=== PATIENT | male | born 1950 | race Asian ===

== ENCOUNTER 2018-07-10 17:18 | Inpatient (IN) | payer OTHER ==
[~2018-07-10] VITALS: Ht 157.5 cm; Wt 62.0 kg
[2018-07-11] VITALS (10 sets, daily range): BP systolic 124–148; BP diastolic 62–88; PULSE 63–101; RESP 17–19; Ht 157.5 cm; Wt 62.0 kg
[2018-07-11] MEDS ORDERED: NACL 0.9% 3 ML SYG IV SCH (05:30)
[2018-07-11] MEDS ORDERED: morphine 2 MG INJ IV PRN (05:30)
[2018-07-11] MEDS ORDERED: HYDROCODONE/APAP (5/325) TAB PO PRN (05:30)
[2018-07-11] MEDS: HEPARIN 5,000 UNIT/1 ML VIAL SC SCH ×3 (07:02→22:36)
--- NOTE | 2018-07-11 12:28 | HP ---
Date/Time of Note Date/Time of Note DATE: 07/11/18 TIME: 12:21 Assessment/Plan VTE Prophylaxis Risk score (from Nsg)>0 risk: 2 SCD applied (from Ns): Yes Pharmacological prophylaxis: NA/contraindicated Pharm contraindication: low risk/ambulating Lines/Catheters IV Catheter Type (from Nrsg): Saline Lock Urinary Cath still in place: No Assessment/Plan Hospital Course 1. Multivessel coronary disease with unstable angina Heart cath [facility] showed multivessel disease CT surgery Dr. Olivas planning on CABG next week, likely Friday Continue cardiac meds with aspirin, statin, metoprolol, lisinopril, Plavix has been held 2. Uncontrolled diabetes A1c at outside hospital was 12.3 with glucosuria and ketonuria Continue scheduled insulin of 16 units and NovoLog 7 with meals and moderate sliding scale 3. Hypertension Continue previous lisinopril 10 mg daily and metoprolol 25 mg twice daily Prophylaxis: Ambulation, SCDs HPI/ROS Admit Date/Time Admit Date/Time Jul 11, 2018 at 04:15 Hx of Present Illness Patient is a 68-year-old male with a history of hypertension, uncontrolled insulin-dependent diabetes, former smoker ([id number], quit 30 years ago), patient presented to [facility] on 211 with typical chest pain. Patient had a negative EKG and troponin was found to have multivessel disease on left heart cath. Heart cath showed moderate diffuse disease in the LM, LAD, first diagonal, left circumflex, third OM, LAD with 95% discrete mid vessel stenosis. Patient was seen by CT surgery who recommended CABG, patient was transferred to [facility] due to capitation. Patient will be evaluated by CT surgery and will have CABG next week. Patient currently denies any chest pain or shortness of breath. ROS Constitutional: no complaints, improved Eyes: no complaints ENT: no complaints Respiratory: no complaints Cardiovascular: no complaints Gastrointestinal: no complaints Genitourinary: no complaints Musculoskeletal: no complaints Skin: no complaints Neurologic: no complaints Endocrine: no complaints Lymphatic: no complaints Psychological: no complaints, nl mood/affect Immunologic: no complaints PMH/Family/Social Past Medical History Uncontrolled insulin-dependent diabetes, hypertension, coronary artery disease Medications Current Medications IV Flush (NS 3 ml) 3 ml PER PROTOCOL IV ; Start 07/11/18 at 05:30 Ondansetron HCl (Zofran Inj) 4 mg Q6H PRN IV NAUSEA/VOMITING; Start 07/11/18 at 05:30 Nitroglycerin (Nitroglycerin (Sl Tab) 0.4 Mg) 1 tab Q5M PRN SL .CHEST PAIN; Start 07/11/18 at 05:30 Acetaminophen (Tylenol Tab) 650 mg Q6H PRN PO .PAIN 1-3 OR TEMP; Start 07/11/18 at 05:30 Acetaminophen/ Hydrocodone Bitart ([place] (5/325)) 1 tab Q6H PRN PO .PAIN 4-6; Start 07/11/18 at 05:30 Morphine Sulfate (morphine) 2 mg Q4H PRN IV .PAIN 7-10; Start 07/11/18 at 05:30 Heparin Sodium (Porcine) (Heparin (5000 Units/1ml)) 5,000 unit Q8 SC Last administered on 07/11/18at 07:02; Admin Dose 5,000 UNIT; Start 07/11/18 at 06:00 Coded Allergies: No Known Allergy (Unverified , 07/11/18) Past Surgical History Past Surgical Hx: no surgical history Family History Significant Family History: no pertinent family hx Social History Alcohol Use: rarely Smoking Status: Former smoker Drug Use: none Exam/Review of Systems Vital Signs Vitals Vital Signs Date Temp Pulse Resp B/P (MAP) Pulse Ox O2 O2 Flow FiO2 Time Delivery Rate 07/11/18 97.0 101 17 138/76 96 11:41 (96) 07/11/18 Room Air 04:44 Exam Constitutional: alert, oriented Respiratory: clear to auscultation Cardiovascular: regular rate and rhythm Gastrointestinal: soft; No distended Musculoskeletal: nl extremities to inspection SUZETTE SIMMONS Jul 11, 2018 12:28
[2018-07-11] MEDS ORDERED: GLUCOSE GEL 15 GRAM TUBE PO PRN ×2 (13:00)
[2018-07-11] MEDS ORDERED: GLUCOSE GEL 15 GRAM TUBE BUCCAL PRN (13:00)
[2018-07-11] MEDS ORDERED: GLUCAGON 1 MG INJ IM PRN (13:00)
[2018-07-11] MEDS ORDERED: DEXTROSE 50% 50 ML SYRINGE IV PRN ×2 (13:00)
--- NOTE | 2018-07-11 13:05 | CONS ---
Assessment/Plan Assessment/Plan Assessment/Plan (Daily) Coronary artery disease We will proceed with coronary artery bypass grafting risks benefits complications alternative therapies explained to the patient consent obtained we will obtain cardiac catheterization prior to surgery Consultation Date/Type/Reason Admit Date/Time Jul 11, 2018 at 04:15 Date of Consultation: Jul 11, 2018 Type of Consult Cardiothoracic surgery evaluation for coronary artery bypass grafting Reason for Consultation Evaluation for coronary artery bypass graft Date/Time of Note DATE: 07/11/18 TIME: 13:03 Hx of Present Illness 68 year-old male with a history of coronary artery disease ENT: no complaints Respiratory: no complaints Cardiovascular: no complaints Gastrointestinal: no complaints Genitourinary: no complaints Musculoskeletal: no complaints Skin: no complaints Neurologic: no complaints Past Medical History Medications Current Medications IV Flush (NS 3 ml) 3 ml PER PROTOCOL IV ; Start 07/11/18 at 05:30 Ondansetron HCl (Zofran Inj) 4 mg Q6H PRN IV NAUSEA/VOMITING; Start 07/11/18 at 05:30 Nitroglycerin (Nitroglycerin (Sl Tab) 0.4 Mg) 1 tab Q5M PRN SL .CHEST PAIN; Start 07/11/18 at 05:30 Acetaminophen (Tylenol Tab) 650 mg Q6H PRN PO .PAIN 1-3 OR TEMP; Start 07/11/18 at 05:30 Acetaminophen/ Hydrocodone Bitart ([place] (5/325)) 1 tab Q6H PRN PO .PAIN 4-6; Start 07/11/18 at 05:30 Morphine Sulfate (morphine) 2 mg Q4H PRN IV .PAIN 7-10; Start 07/11/18 at 05:30 Heparin Sodium (Porcine) (Heparin (5000 Units/1ml)) 5,000 unit Q8 SC Last administered on 07/11/18at 07:02; Admin Dose 5,000 UNIT; Start 07/11/18 at 06:00 Aspirin (Halfprin) 81 mg DAILY PO ; Start 07/11/18 at 13:00 Atorvastatin Calcium (Lipitor) 40 mg HS PO ; Start 07/11/18 at 21:00 Metoprolol Tartrate (Lopressor) 25 mg BID PO ; Start 07/11/18 at 13:00 Lisinopril (Zestril) 20 mg DAILY PO ; Start 07/11/18 at 13:00 Diagnostic Test (Pha) (Accu-Chek) 1 ea 02 XX ; Start 07/12/18 at 02:00 Insulin Glargine (Lantus) 16 units DAILY@0800 SC ; Start 07/11/18 at 13:30 Insulin Aspart (Novolog Insulin Pen) 7 unit WITH MEALS SC ; Start 07/11/18 at 18:00 Insulin Aspart (Novolog Insulin Pen) NOVOLOG *MODERATE* ALGORITHM WITH MEALS BEDTIME SC ; Start 07/11/18 at 18:00 Miscellaneous Information 1 ea NOTE XX ; Start 07/11/18 at 13:00 Glucose (Glutose) 15 gm Q15M PRN PO DECREASED GLUCOSE; Start 07/11/18 at 13:00 Glucose (Glutose) 22.5 gm Q15M PRN PO DECREASED GLUCOSE; Start 07/11/18 at 13:00 Dextrose (D50w Syringe) 25 ml Q15M PRN IV DECREASED GLUCOSE; Start 07/11/18 at 13:00 Dextrose (D50w Syringe) 50 ml Q15M PRN IV DECREASED GLUCOSE; Start 07/11/18 at 13:00 Glucagon (Glucagen) 1 mg Q15M PRN IM DECREASED GLUCOSE; Start 07/11/18 at 13:00 Glucose (Glutose) 15 gm Q15M PRN BUCCAL DECREASED GLUCOSE; Start 07/11/18 at 13:00 Allergies: Coded Allergies: No Known Allergy (Unverified , 07/11/18) Past Surgical History Past Surgical Hx: no surgical history Social History Alcohol Use: rarely Smoking Status: Former smoker Drug Use: none Exam/Review of Systems Exam Vitals Vital Signs Date Temp Pulse Resp B/P (MAP) Pulse Ox O2 O2 Flow FiO2 Time Delivery Rate 07/11/18 97.0 101 17 138/76 96 11:41 (96) 07/11/18 Room Air 04:44 Head: normocephalic, atraumatic Eyes: nl conjunctiva, EOMI, nl lids, nl sclera, PERRL ENMT: nl external ears & nose, nl lips & teeth, nl nasal mucosa & septum Neck: supple, non-tender Respiratory: clear to auscultation, normal air movement Cardiovascular: regular rate and rhythm, nl pulses Gastrointestinal: soft, nl liver, spleen, non-tender Musculoskeletal: nl extremities to inspection, nl gait and stance Medications Medication Current Medications IV Flush (NS 3 ml) 3 ml PER PROTOCOL IV ; Start 07/11/18 at 05:30 Ondansetron HCl (Zofran Inj) 4 mg Q6H PRN IV NAUSEA/VOMITING; Start 07/11/18 at 05:30 Nitroglycerin (Nitroglycerin (Sl Tab) 0.4 Mg) 1 tab Q5M PRN SL .CHEST PAIN; Start 07/11/18 at 05:30 Acetaminophen (Tylenol Tab) 650 mg Q6H PRN PO .PAIN 1-3 OR TEMP; Start 07/11/18 at 05:30 Acetaminophen/ Hydrocodone Bitart ([place] (5/325)) 1 tab Q6H PRN PO .PAIN 4-6; Start 07/11/18 at 05:30 Morphine Sulfate (morphine) 2 mg Q4H PRN IV .PAIN 7-10; Start 07/11/18 at 05:30 Heparin Sodium (Porcine) (Heparin (5000 Units/1ml)) 5,000 unit Q8 SC Last ad ministered on 07/11/18at 07:02; Admin Dose 5,000 UNIT; Start 07/11/18 at 06:00 Aspirin (Halfprin) 81 mg DAILY PO ; Start 07/11/18 at 13:00 Atorvastatin Calcium (Lipitor) 40 mg HS PO ; Start 07/11/18 at 21:00 Metoprolol Tartrate (Lopressor) 25 mg BID PO ; Start 07/11/18 at 13:00 Lisinopril (Zestril) 20 mg DAILY PO ; Start 07/11/18 at 13:00 Diagnostic Test (Pha) (Accu-Chek) 1 ea 02 XX ; Start 07/12/18 at 02:00 Insulin Glargine (Lantus) 16 units DAILY@0800 SC ; Start 07/11/18 at 13:30 Insulin Aspart (Novolog Insulin Pen) 7 unit WITH MEALS SC ; Start 07/11/18 at 18:00 Insulin Aspart (Novolog Insulin Pen) NOVOLOG *MODERATE* ALGORITHM WITH MEALS BEDTIME SC ; Start 07/11/18 at 18:00 Miscellaneous Information 1 ea NOTE XX ; Start 07/11/18 at 13:00 Glucose (Glutose) 15 gm Q15M PRN PO DECREASED GLUCOSE; Start 07/11/18 at 13:00 Glucose (Glutose) 22.5 gm Q15M PRN PO DECREASED GLUCOSE; Start 07/11/18 at 13:00 Dextrose (D50w Syringe) 25 ml Q15M PRN IV DECREASED GLUCOSE; Start 07/11/18 at 13:00 Dextrose (D50w Syringe) 50 ml Q15M PRN IV DECREASED GLUCOSE; Start 07/11/18 at 13:00 Glucagon (Glucagen) 1 mg Q15M PRN IM DECREASED GLUCOSE; Start 07/11/18 at 13:00 Glucose (Glutose) 15 gm Q15M PRN BUCCAL DECREASED GLUCOSE; Start 07/11/18 at 13:00 VANIA LAMB MD Jul 11, 2018 13:05
[2018-07-11] MEDS: METOPROLOL 25 MG TAB PO SCH ×2 (13:20→21:02)
[2018-07-11] MEDS: LISINOPRIL 20 MG TAB PO SCH (13:20)
[2018-07-11] MEDS: ASPIRIN (EC) 81 MG TAB PO SCH (13:20)
[2018-07-11] MEDS: INSULIN GLARGINE [LANTus] (100 UNITS/ML) SYG SC SCH (15:11)
[2018-07-11] MEDS: INSULIN ASPART [NOVOLOG] 3 ML PEN SC SCH ×4 (15:23→21:10)
[2018-07-11] MEDS: PANTOPRAZOLE (EC) 40 MG TAB PO SCH (15:24)
[2018-07-11] MEDS: ATORVASTATIN 40 MG TAB PO SCH (21:02)
[2018-07-12] VITALS (12 sets, daily range): BP systolic 115–138; BP diastolic 63–71; PULSE 67–92; RESP 17–18
[2018-07-12] MEDS: ACCU-CHEK XX SCH (02:31)
[2018-07-12] MEDS: PANTOPRAZOLE (EC) 40 MG TAB PO SCH (05:51)
[2018-07-12] MEDS: HEPARIN 5,000 UNIT/1 ML VIAL SC SCH ×3 (05:57→22:11)
[2018-07-12] MEDS: INSULIN ASPART [NOVOLOG] 3 ML PEN SC SCH ×7 (07:41→22:12)
[2018-07-12] MEDS: INSULIN GLARGINE [LANTus] (100 UNITS/ML) SYG SC SCH (08:11)
[2018-07-12] MEDS: METOPROLOL 25 MG TAB PO SCH ×2 (12:26→20:21)
[2018-07-12] MEDS: ASPIRIN (EC) 81 MG TAB PO SCH (12:27)
[2018-07-12] MEDS: LISINOPRIL 20 MG TAB PO SCH (12:27)
--- NOTE | 2018-07-12 12:47 | PN ---
Date/Time of Note Date/Time of Note DATE: 07/12/18 TIME: 12:46 Assessment/Plan Lines/Catheters IV Catheter Type (from Nrsg): Saline Lock Roa in Place (from Nrsg): No Assessment/Plan Assessment/Plan Multivessel coronary artery disease Diabetes Plan for coronary artery bypass grafting next week Subjective 24 Hr Interval Summary Constitutional: improved Pain Control: mild Exam/Review of Systems Vital Signs Vitals Vital Signs Date Temp Pulse Resp B/P (MAP) Pulse Ox O2 O2 Flow FiO2 Time Delivery Rate 07/12/18 77 12:02 07/12/18 97.8 18 117/65 95 11:32 (82) 07/11/18 Room Air 04:44 Intake and Output 07/11/18 07/11/18 07/12/18 1515:00 23:00 07:00 IntakeIntake Total 900 ml 600 ml BalanceBalance 900 ml 600 ml Exam Eyes: nl conjunctiva, EOMI, nl lids, nl sclera ENMT: nl external ears & nose, nl lips & teeth, nl nasal mucosa & septum, mucosa pink and moist Neck: supple, non-tender Respiratory: clear to auscultation, normal air movement Cardiovascular: regular rate and rhythm, nl pulses Gastrointestinal: soft, nl liver, spleen, non-tender Musculoskeletal: nl extremities to inspection, nl gait and stance VANIA LAMB MD Jul 12, 2018 12:47
--- NOTE | 2018-07-12 15:24 | PN ---
Date/Time of Note Date/Time of Note DATE: 07/12/18 TIME: 15:23 Assessment/Plan VTE Prophylaxis Risk score (from Nsg)>0 risk: 2 SCD applied (from Nsg): Yes Pharmacological prophylaxis: NA/contraindicated Pharm contraindication: low risk/ambulating Lines/Catheters IV Catheter Type (from Nrsg): Saline Lock Urinary Cath still in place: No Assessment/Plan Hospital Course 1. Multivessel coronary disease with unstable angina Heart cath [facility] showed multivessel disease CT surgery Dr. Olivas planning on CABG next week, likely Friday Continue cardiac meds with aspirin, statin, metoprolol, lisinopril, Plavix has been held 2. Uncontrolled diabetes A1c at outside hospital was 12.3 with glucosuria and ketonuria Continue scheduled insulin of 16 units and NovoLog 7 with meals and moderate sliding scale 3. Hypertension Continue previous lisinopril 20 mg daily and metoprolol 25 mg twice daily Prophylaxis: Ambulation, SCDs Results 24hrs Laboratory Tests Test 07/11/18 17:08 07/11/18 20:55 07/12/18 02:30 07/12/18 07:28 Bedside Glucose 344 H 191 114 131 Test 07/12/18 09:16 07/12/18 12:07 Bedside Glucose 142 173 Subjective 24 Hr Interval Summary Constitutional: no complaints Exam/Review of Systems Exam Vitals Vital Signs Date Temp Pulse Resp B/P (MAP) Pulse Ox O2 O2 Flow FiO2 Time Delivery Rate 07/12/18 77 12:02 07/12/18 97.8 18 117/65 95 11:32 (82) 07/11/18 Room Air 04:44 Intake and Output 07/11/18 07/11/18 07/12/18 1515:00 23:00 07:00 IntakeIntake Total 900 ml 600 ml BalanceBalance 900 ml 600 ml Constitutional: alert, oriented Respiratory: clear to auscultation Cardiovascular: regular rate and rhythm Gastrointestinal: soft; No distended Musculoskeletal: nl extremities to inspection Results Results 24hrs Laboratory Tests Test 07/11/18 17:08 07/11/18 20:55 07/12/18 02:30 07/12/18 07:28 Bedside Glucose 344 H 191 114 131 Test 07/12/18 09:16 07/12/18 12:07 Bedside Glucose 142 173 Medications Medication Current Medications IV Flush (NS 3 ml) 3 ml PER PROTOCOL IV ; Start 07/11/18 at 05:30 Ondansetron HCl (Zofran Inj) 4 mg Q6H PRN IV NAUSEA/VOMITING; Start 07/11/18 at 05:30 Nitroglycerin (Nitroglycerin (Sl Tab) 0.4 Mg) 1 tab Q5M PRN SL .CHEST PAIN; Start 07/11/18 at 05:30 Acetaminophen (Tylenol Tab) 650 mg Q6H PRN PO .PAIN 1-3 OR TEMP; Start 07/11/18 at 05:30 Acetaminophen/ Hydrocodone Bitart ([place] (5/325)) 1 tab Q6H PRN PO .PAIN 4-6 Last administered on 07/12/18 08:15; Admin Dose 1 TAB; Start 07/11/18 at 05:30 Morphine Sulfate (morphine) 2 mg Q4H PRN IV .PAIN 7-10; Start 07/11/18 at 05:30 Heparin Sodium (Porcine) (Heparin (5000 Units/1ml)) 5,000 unit Q8 SC Last administered on 07/12/18at 14:30; Admin Dose 5,000 UNIT; Start 07/11/18 at 06:00 Aspirin (Halfprin) 81 mg DAILY PO Last administered on 07/12/18 12:27; Admin Dose 81 MG; Start 07/11/18 at 13:00 Atorvastatin Calcium (Lipitor) 40 mg HS PO Last administered on 07/11/18 21:02; Admin Dose 40 MG; Start 07/11/18 at 21:00 Metoprolol Tartrate (Lopressor) 25 mg BID PO Last administered on 07/12/18 12:26; Admin Dose 25 MG; Start 07/11/18 at 13:00 Lisinopril (Zestril) 20 mg DAILY PO Last administered on 07/12/18 12:27; Admin Dose 20 MG; Start 07/11/18 at 13:00 Diagnostic Test (Pha) (Accu-Chek) 1 ea 02 XX Last administered on 07/12/18 02:31; Admin Dose 1 EA; Start 07/12/18 at 02:00 Insulin Glargine (Lantus) 16 units DAILY@0800 SC Last administered on 07/12/18 08:11; Admin Dose 16 UNITS; Start 07/11/18 at 13:30 Insulin Aspart (Novolog Insulin Pen) 7 unit WITH MEALS SC Last administered on 07/12/18at 08:11; Admin Dose 7 UNIT; Start 07/11/18 at 18:00 Insulin Aspart (Novolog Insulin Pen) NOVOLOG *MODERATE* ALGORITHM WITH MEALS BEDTIME SC Last administered on 07/12/18at 12:30; Admin Dose 2 UNIT; Start 07/11/18 at 18:00 Miscellaneous Information 1 ea NOTE XX ; Start 07/11/18 at 13:00 Glucose (Glutose) 15 gm Q15M PRN PO DECREASED GLUCOSE; Start 07/11/18 at 13:00 Glucose (Glutose) 22.5 gm Q15M PRN PO DECREASED GLUCOSE; Start 07/11/18 at 13:00 Dextrose (D50w Syringe) 25 ml Q15M PRN IV DECREASED GLUCOSE; Start 07/11/18 at 13:00 Dextrose (D50w Syringe) 50 ml Q15M PRN IV DECREASED GLUCOSE; Start 07/11/18 at 13:00 Glucagon (Glucagen) 1 mg Q15M PRN IM DECREASED GLUCOSE; Start 07/11/18 at 13:00 Glucose (Glutose) 15 gm Q15M PRN BUCCAL DECREASED GLUCOSE; Start 07/11/18 at 13:00 Pantoprazole (Protonix Tab) 40 mg DAILY@06 PO Last administered on 07/12/18at 05:51; Admin Dose 40 MG; Start 07/11/18 at 15:30 SUZETTE SIMMONS Jul 12, 2018 15:24
[2018-07-12] MEDS: ATORVASTATIN 40 MG TAB PO SCH (20:20)
[2018-07-13] VITALS (11 sets, daily range): BP systolic 124–144; BP diastolic 60–78; PULSE 68–88; RESP 16–18
[2018-07-13] MEDS: ACETAMINOPHEN 325 MG TAB PO PRN ×2 (00:09→20:28)
[2018-07-13] MEDS: ONDANSETRON 4 MG INJ IV PRN (00:09)
[2018-07-13] MEDS: ACCU-CHEK XX SCH (02:00)
[2018-07-13] MEDS: PANTOPRAZOLE (EC) 40 MG TAB PO SCH (06:55)
[2018-07-13] MEDS: HEPARIN 5,000 UNIT/1 ML VIAL SC SCH ×3 (07:00→21:22)
[2018-07-13] MEDS: ASPIRIN (EC) 81 MG TAB PO SCH (08:29)
[2018-07-13] MEDS: LISINOPRIL 20 MG TAB PO SCH (08:30)
[2018-07-13] MEDS: METOPROLOL 25 MG TAB PO SCH ×2 (08:30→20:18)
[2018-07-13] MEDS: INSULIN ASPART [NOVOLOG] 3 ML PEN SC SCH ×7 (08:32→20:37)
[2018-07-13] MEDS: INSULIN GLARGINE [LANTus] (100 UNITS/ML) SYG SC SCH (08:33)
--- NOTE | 2018-07-13 11:14 | PN ---
Date/Time of Note Date/Time of Note DATE: 07/13/18 TIME: 11:13 Assessment/Plan VTE Prophylaxis Risk score (from Nsg)>0 risk: 4 SCD applied (from Nsg): Yes Pharmacological prophylaxis: NA/contraindicated Pharm contraindication: low risk/ambulating Lines/Catheters IV Catheter Type (from Nrsg): Saline Lock Urinary Cath still in place: No Assessment/Plan Hospital Course 1. Multivessel coronary disease with unstable angina Heart cath [facility] showed multivessel disease CT surgery Dr. Olivas planning on CABG likely this Friday Continue cardiac meds with aspirin, statin, metoprolol, lisinopril, Plavix has been held 2. Uncontrolled diabetes A1c at outside hospital was 12.3 with glucosuria and ketonuria Continue scheduled insulin of 16 units and NovoLog 7 with meals and moderate sliding scale 3. Hypertension Continue previous lisinopril 20 mg daily and metoprolol 25 mg twice daily Prophylaxis: Ambulation, SCDs Results 24hrs Laboratory Tests Test 07/12/18 12:07 07/12/18 17:07/12/18 20:24 07/13/18 03:30 Bedside Glucose 173 299 H 232 H 236 H Test 07/13/18 07:36 07/13/18 11:02 Bedside Glucose 203 168 Subjective 24 Hr Interval Summary Constitutional: no complaints Exam/Review of Systems Exam Vitals Vital Signs Date Temp Pulse Resp B/P (MAP) Pulse Ox O2 O2 Flow FiO2 Time Delivery Rate 07/13/18 77 08:01 07/13/18 98.2 18 136/71 96 07:14 (92) 07/11/18 Room Air 04:44 Intake and Output 07/12/18 07/12/18 07/13/18 1515:00 23:00 07:00 IntakeIntake Total 600 ml BalanceBalance 600 ml Constitutional: alert Respiratory: clear to auscultation Cardiovascular: regular rate and rhythm Gastrointestinal: soft; No distended Musculoskeletal: nl extremities to inspection Results Results 24hrs Laboratory Tests Test 07/12/18 12:07 07/12/18 17:19 07/12/18 20:24 07/13/18 03:30 Bedside Glucose 173 299 H 232 H 236 H Test 07/13/18 07:36 07/13/18 11:02 Bedside Glucose 203 168 Medications Medication Current Medications IV Flush (NS 3 ml) 3 ml PER PROTOCOL IV ; Start 07/11/18 at 05:30 Ondansetron HCl (Zofran Inj) 4 mg Q6H PRN IV NAUSEA/VOMITING Last administered on 07/13/18 00:09; Admin Dose 4 MG; Start 07/11/18 at 05:30 Nitroglycerin (Nitroglycerin (Sl Tab) 0.4 Mg) 1 tab Q5M PRN SL .CHEST PAIN; Start 07/11/18 at 05:30 Acetaminophen (Tylenol Tab) 650 mg Q6H PRN PO .PAIN 1-3 OR TEMP Last administered on 07/13/18 00:09; Admin Dose 650 MG; Start 07/11/18 at 05:30 Acetaminophen/ Hydrocodone Bitart ([place] (5/325)) 1 tab Q6H PRN PO .PAIN 4-6 Last administered on 07/12/18 08:15; Admin Dose 1 TAB; Start 07/11/18 at 05:30 Morphine Sulfate (morphine) 2 mg Q4H PRN IV .PAIN 7-10; Start 07/11/18 at 05:30 Heparin Sodium (Porcine) (Heparin (5000 Units/1ml)) 5,000 unit Q8 SC Last administered on 07/13/18 07:00; Admin Dose 5,000 UNIT; Start 07/11/18 at 06:00 Aspirin (Halfprin) 81 mg DAILY PO Last administered on 07/13/18 08:29; Admin Dose 81 MG; Start 07/11/18 at 13:00 Atorvastatin Calcium (Lipitor) 40 mg HS PO Last administered on 07/12/18 20:20; Admin Dose 40 MG; Start 07/11/18 at 21:00 Metoprolol Tartrate (Lopressor) 25 mg BID PO Last administered on 07/13/18 08:30; Admin Dose 25 MG; Start 07/11/18 at 13:00 Lisinopril (Zestril) 20 mg DAILY PO Last administered on 07/13/18 08:30; Admin Dose 20 MG; Start 07/11/18 at 13:00 Diagnostic Test (Pha) (Accu-Chek) 1 ea 02 XX Last administered on 07/12/18at 02:31; Admin Dose 1 EA; Start 07/12/18 at 02:00 Insulin Glargine (Lantus) 16 units DAILY@0800 SC Last administered on 07/13/18at 08:33; Admin Dose 16 UNITS; Start 07/11/18 at 13:30 Insulin Aspart (Novolog Insulin Pen) 7 unit WITH MEALS SC Last administered on 07/13/18at 11:08; Admin Dose 7 UNIT; Start 07/11/18 at 18:00 Insulin Aspart (Novolog Insulin Pen) NOVOLOG *MODERATE* ALGORITHM WITH MEALS BEDTIME SC Last administered on 07/13/18at 11:08; Admin Dose 2 UNIT; Start 07/11/18 at 18:00 Miscellaneous Information 1 ea NOTE XX ; Start 07/11/18 at 13:00 Glucose (Glutose) 15 gm Q15M PRN PO DECREASED GLUCOSE; Start 07/11/18 at 13:00 Glucose (Glutose) 22.5 gm Q15M PRN PO DECREASED GLUCOSE; Start 07/11/18 at 13:00 Dextrose (D50w Syringe) 25 ml Q15M PRN IV DECREASED GLUCOSE; Start 07/11/18 at 13:00 Dextrose (D50w Syringe) 50 ml Q15M PRN IV DECREASED GLUCOSE; Start 07/11/18 at 13:00 Glucagon (Glucagen) 1 mg Q15M PRN IM DECREASED GLUCOSE; Start 07/11/18 at 13:00 Glucose (Glutose) 15 gm Q15M PRN BUCCAL DECREASED GLUCOSE; Start 07/11/18 at 13:00 Pantoprazole (Protonix Tab) 40 mg DAILY@06 PO Last administered on 07/13/18at 06:55; Admin Dose 40 MG; Start 07/11/18 at 15:30 SUZETTE SIMMONS Jul 13, 2018 11:14
--- NOTE | 2018-07-13 18:17 | PN ---
Date/Time of Note Date/Time of Note DATE: 07/13/18 TIME: 18:17 Assessment/Plan Lines/Catheters IV Catheter Type (from Nrsg): Saline Lock Roa in Place (from Nrsg): No Assessment/Plan Assessment/Plan Coronary artery disease Pt stable Plan for coronary artery bypass grafting on Friday Subjective 24 Hr Interval Summary Constitutional: improved Pain Control: mild Exam/Review of Systems Vital Signs Vitals Vital Signs Date Temp Pulse Resp B/P (MAP) Pulse Ox O2 O2 Flow FiO2 Time Delivery Rate 07/13/18 68 16:01 07/13/18 98.0 18 124/60 97 15:58 (81) 07/11/18 Room Air 04:44 Intake and Output 07/12/18 07/12/18 07/13/18 1515:00 23:00 07:00 IntakeIntake Total 600 ml BalanceBalance 600 ml Exam Head: normocephalic, atraumatic Eyes: nl conjunctiva, EOMI, nl lids, nl sclera ENMT: nl external ears & nose, nl lips & teeth, nl nasal mucosa & septum, mucosa pink and moist Neck: supple, non-tender Respiratory: clear to auscultation, normal air movement Cardiovascular: regular rate and rhythm, nl pulses Gastrointestinal: soft, nl liver, spleen, non-tender VANIA LAMB MD Jul 13, 2018 18:17
[2018-07-13] MEDS: ATORVASTATIN 40 MG TAB PO SCH (20:17)
[2018-07-14] VITALS (10 sets, daily range): BP systolic 109–140; BP diastolic 56–65; PULSE 59–103; RESP 16–20
[2018-07-14] MEDS: ACCU-CHEK XX SCH (01:58)
[2018-07-14] MEDS: PANTOPRAZOLE (EC) 40 MG TAB PO SCH (05:31)
[2018-07-14] MEDS: HEPARIN 5,000 UNIT/1 ML VIAL SC SCH ×3 (05:39→21:17)
[2018-07-14] MEDS: LISINOPRIL 20 MG TAB PO SCH (07:39)
[2018-07-14] MEDS: ASPIRIN (EC) 81 MG TAB PO SCH (07:40)
[2018-07-14] MEDS: METOPROLOL 25 MG TAB PO SCH ×2 (07:40→20:23)
[2018-07-14] MEDS: INSULIN ASPART [NOVOLOG] 3 ML PEN SC SCH ×7 (07:50→20:33)
[2018-07-14] MEDS: INSULIN GLARGINE [LANTus] (100 UNITS/ML) SYG SC SCH (07:50)
--- NOTE | 2018-07-14 07:53 | RADRPT ---
Echocardiogram Report Patient Name: WEST HOWELLPatient ID: [id number] : 1950 (68y 4m)Study Date: 07/13/2018 9:20:39 AM Gender: MAccession #: [id number] Tech: Sky Meeks [facility] Location: 603-A Ref.Physician: FREDIS FALLON Height(Cm): BSA: Weight(Kg): Quality: AdequateAccount #: Procedures: Echocardiographic Report: Transthoracic echocardiogram with complete 2D, M-Mode, and doppler examination. Indications: Pre-op. Measurements: 2D/M Mode Doppler Measurement Value Normal Range Measurement Value Normal Range LVIDd 2D 3.5 [ 4.2 - 5.8 ] cm AV Peak Herbert 1.0 [ 100.0 - 170.0 ] cm/sec LVIDs 2D 2.3 [ 2.5 - 4.0 ] cm AV Peak PG 4.0 [ 2.0 - 9.0 ] mmHg LVPWd 2D 1.1 [ 0.6 - 1.0 ] cm LVOT Peak Herbert 0.7 [ 70.0 - 110.0 ] cm/sec IVSd 2D 1.6 [ 0.6 - 1.0 ] cm LVOT Peak PG 2.0 [ 2.0 - 6.0 ] mmHg AoR Diam 2D 2.7 [ 2.6 - 3.4 ] cm MV E Peak Herbert 0.7 [ 60.0 - 130.0 ] cm/sec EDV 2D 51.9 [ 62.0 - 150.0 ] ml MV A Peak Herbert 0.8 [ 100.0 - 120.0 ] cm/sec ESV 2D 19.1 [ 21.0 - 61.0 ] ml MV E/A 0.8 [ 0.8 - 1.5 ] ratio EF 2D 63.2 [ 52.0 - 72.0 ] percent MV Decel Time 180 [ 104 - 258 ] msec LA Dimen 2D 3.0 [ 3.0 - 4.0 ] cm Lat E` Herbert 0.1 [ 10.0 - 15.0 ] cm/sec Lateral E/E` 10.1 [ 1.0 - 2.0 ] ratio Med E` Herbert 0.1 cm/sec MV E/A 0.8 [ 0.8 - 1.5 ] ratio TR Peak Herbert 2.4 [ 100.0 - 280.0 ] cm/sec TR Peak PG 23.0 mmHg RVSP 26.0 [ 10.0 - 36.0 ] mmHg Findings: Left Ventricle: Normal left ventricular systolic function. Normal left ventricular cavity size. Sigmoid septum. Ejection fraction is visually estimated at 55 %. Tissue Doppler/Mitral Doppler indices are consistent with impaired relaxation (Stage I diastolic dysfunction). Right Ventricle: Normal right ventricular size. Normal right ventricular systolic function. Left Atrium: The left atrium is normal in size. Right Atrium: The right atrium is normal in size. Mitral Valve: Mild mitral leaflet calcification. Mild mitral annular calcification. Trace mitral regurgitation. Aortic Valve: No significant aortic stenosis or insufficiency. Aortic cusps appear mildly calcified. Tricuspid Valve: Normal appearance of the tricuspid valve. Estimated peak PA systolic pressure 26 mmHg. There is trace tricuspid regurgitation. Pulmonic Valve: Normal pulmonic valve appearance. There is trace pulmonic regurgitation. Pericardium: Normal pericardium with no significant pericardial effusion. Aorta: Normal aortic root. IVC: Normal size and normal respiratory collapse consistent with normal right atrial pressure. Conclusions: Normal left ventricular systolic function. Normal left ventricular cavity size. Sigmoid septum. Ejection fraction is visually estimated at 55 %. Tissue Doppler/Mitral Doppler indices are consistent with impaired relaxation (Stage I diastolic dysfunction). Mild mitral leaflet calcification. Mild mitral annular calcification. Trace mitral regurgitation. No significant aortic stenosis or insufficiency. Aortic cusps appear mildly calcified. Normal appearance of the tricuspid valve. Estimated peak PA systolic pressure 26 mmHg. There is trace tricuspid regurgitation. Electronically Signed By: Glen Martinez 2018-07-14 07:52:21 PST
--- NOTE | 2018-07-14 08:46 | PN ---
Date/Time of Note Date/Time of Note DATE: 07/14/18 TIME: 08:44 Assessment/Plan VTE Prophylaxis Risk score (from Nsg)>0 risk: 3 SCD applied (from Nsg): Yes Pharmacological prophylaxis: other Lines/Catheters IV Catheter Type (from Nrsg): Saline Lock Urinary Cath still in place: No Assessment/Plan Hospital Course A/P: 68 M p/w: 1. Multivessel coronary disease with unstable angina -Heart cath [facility] showed multivessel disease -Monitor, CT surgery Dr. Olivas planning on CABG likely this Friday - Continue cardiac meds with aspirin, statin, metoprolol, lisinopril, Plavix has been held 2. Uncontrolled diabetes-apparently A1c at outside hospital was 12.3 with glucosuria and ketonuria. Sugars slightly improved since admission, still in the high normal range. - Continue scheduled insulin of 16 units and NovoLog 7 with meals and moderate sliding scale 3. Hypertension -currently stable. - Continue previous lisinopril 20 mg daily and metoprolol 25 mg twice daily Prophylaxis: Ambulation, SCDs Results 24hrs Laboratory Tests Test 07/13/18 11:02 07/13/18 17:16 07/13/18 20:15 07/14/18 01:44 Bedside Glucose 168 283 H 279 H 312 H Test 07/14/18 07:41 Bedside Glucose 204 Subjective 24 Hr Interval Summary Free Text/Dictation No acute events overnight, seen by cardiothoracic surgery team yesterday. Exam/Review of Systems Exam Vitals Vital Signs Date Temp Pulse Resp B/P (MAP) Pulse Ox O2 O2 Flow FiO2 Time Delivery Rate 07/14/18 75 08:01 07/14/18 98.6 20 140/65 97 07:31 (90) 07/11/18 Room Air 04:44 Intake and Output 07/13/18 07/13/18 07/14/18 1414:59 22:59 06:59 IntakeIntake Total 300 ml 400 ml 500 ml BalanceBalance 300 ml 400 ml 500 ml Exam Constitutional: alert Respiratory: clear to auscultation Cardiovascular: regular rate and rhythm Gastrointestinal: soft; No distended Musculoskeletal: nl extremities to inspection Results Results 24hrs Laboratory Tests Test 07/13/18 11:02 07/13/18 17:16 07/13/18 20:15 07/14/18 01:44 Bedside Glucose 168 283 H 279 H 312 H Test 07/14/18 07:41 Bedside Glucose 204 Medications Medication Current Medications IV Flush (NS 3 ml) 3 ml PER PROTOCOL IV ; Start 07/11/18 at 05:30 Ondansetron HCl (Zofran Inj) 4 mg Q6H PRN IV NAUSEA/VOMITING Last administered on 07/13/18at 00:09; Admin Dose 4 MG; Start 07/11/18 at 05:30 Nitroglycerin (Nitroglycerin (Sl Tab) 0.4 Mg) 1 tab Q5M PRN SL .CHEST PAIN; Start 07/11/18 at 05:30 Acetaminophen (Tylenol Tab) 650 mg Q6H PRN PO .PAIN 1-3 OR TEMP Last administered on 07/13/18at 20:28; Admin Dose 650 MG; Start 07/11/18 at 05:30 Acetaminophen/ Hydrocodone Bitart ([place] (5/325)) 1 tab Q6H PRN PO .PAIN 4-6 Last administered on 07/12/18at 08:15; Admin Dose 1 TAB; Start 07/11/18 at 05:30 Morphine Sulfate (morphine) 2 mg Q4H PRN IV .PAIN 7-10; Start 07/11/18 at 05:30 Heparin Sodium (Porcine) (Heparin (5000 Units/1ml)) 5,000 unit Q8 SC Last administered on 07/14/18at 05:39; Admin Dose 5,000 UNIT; Start 07/11/18 at 06:00 Aspirin (Halfprin) 81 mg DAILY PO Last administered on 07/14/18 07:40; Admin Dose 81 MG; Start 07/11/18 at 13:00 Atorvastatin Calcium (Lipitor) 40 mg HS PO Last administered on 07/13/18 20:17; Admin Dose 40 MG; Start 07/11/18 at 21:00 Metoprolol Tartrate (Lopressor) 25 mg BID PO Last administered on 07/14/18at 07:40; Admin Dose 25 MG; Start 07/11/18 at 13:00 Lisinopril (Zestril) 20 mg DAILY PO Last administered on 07/14/18at 07:39; Admin Dose 20 MG; Start 07/11/18 at 13:00 Diagnostic Test (Pha) (Accu-Chek) 1 ea 02 XX Last administered on 07/14/18at 01:58; Admin Dose 1 EA; Start 07/12/18 at 02:00 Insulin Glargine (Lantus) 16 units DAILY@0800 SC Last administered on 07/14/18 07:50; Admin Dose 16 UNITS; Start 07/11/18 at 13:30 Insulin Aspart (Novolog Insulin Pen) 7 unit WITH MEALS SC Last administered on 07/14/18 07:50; Admin Dose 7 UNIT; Start 07/11/18 at 18:00 Insulin Aspart (Novolog Insulin Pen) NOVOLOG *MODERATE* ALGORITHM WITH MEALS BEDTIME SC Last administered on 07/14/18 07:50; Admin Dose 4 UNIT; Start 07/11/18 at 18:00 Miscellaneous Information 1 ea NOTE XX ; Start 07/11/18 at 13:00 Glucose (Glutose) 15 gm Q15M PRN PO DECREASED GLUCOSE; Start 07/11/18 at 13:00 Glucose (Glutose) 22.5 gm Q15M PRN PO DECREASED GLUCOSE; Start 07/11/18 at 13:00 Dextrose (D50w Syringe) 25 ml Q15M PRN IV DECREASED GLUCOSE; Start 07/11/18 at 13:00 Dextrose (D50w Syringe) 50 ml Q15M PRN IV DECREASED GLUCOSE; Start 07/11/18 at 13:00 Glucagon (Glucagen) 1 mg Q15M PRN IM DECREASED GLUCOSE; Start 07/11/18 at 13:00 Glucose (Glutose) 15 gm Q15M PRN BUCCAL DECREASED GLUCOSE; Start 07/11/18 at 13:00 Pantoprazole (Protonix Tab) 40 mg DAILY@06 PO Last administered on 07/14/18at 05:31; Admin Dose 40 MG; Start 07/11/18 at 15:30 Simethicone (Mylicon) 80 mg QID PRN GTB DISTENSION/GAS/BLOATING Last administered on 07/13/18at 20:28; Admin Dose 80 MG; Start 07/13/18 at 12:30 ESTHER HUTSON Jul 14, 2018 08:45
[2018-07-14] MEDS: ATORVASTATIN 40 MG TAB PO SCH (20:23)
[2018-07-14] MEDS ORDERED: INSULIN ASPART [NOVOLOG] 3 ML PEN SC ONE (21:00)
[2018-07-14] MEDS ORDERED: morphine LIQ (10 MG/5 ML) CUP PO PRN (22:00)
[2018-07-15] VITALS (13 sets, daily range): BP systolic 105–169; BP diastolic 57–83; PULSE 75–84; RESP 16–18
[2018-07-15] MEDS: ACCU-CHEK XX SCH (02:01)
[2018-07-15] MEDS: PANTOPRAZOLE (EC) 40 MG TAB PO SCH (05:31)
[2018-07-15] MEDS: HEPARIN 5,000 UNIT/1 ML VIAL SC SCH ×3 (05:35→21:32)
[2018-07-15] MEDS: ASPIRIN (EC) 81 MG TAB PO SCH (07:58)
[2018-07-15] MEDS: LISINOPRIL 20 MG TAB PO SCH (07:59)
[2018-07-15] MEDS: METOPROLOL 25 MG TAB PO SCH ×2 (07:59→21:11)
[2018-07-15] MEDS: INSULIN GLARGINE [LANTus] (100 UNITS/ML) SYG SC SCH (08:08)
[2018-07-15] MEDS: INSULIN ASPART [NOVOLOG] 3 ML PEN SC SCH ×7 (08:08→21:00)
[2018-07-15] MEDS ORDERED: SALINE 0.65% 45 ML NAS SPRAY NASAL PRN (10:30)
--- NOTE | 2018-07-15 10:50 | PN ---
Date/Time of Note Date/Time of Note DATE: 07/15/18 TIME: 10:42 Assessment/Plan VTE Prophylaxis Risk score (from Nsg)>0 risk: 2 SCD applied (from Nsg): Yes Pharmacological prophylaxis: heparin Lines/Catheters IV Catheter Type (from Nrsg): Saline Lock Urinary Cath still in place: No Assessment/Plan Assessment/Plan 1. Multivessel coronary disease with unstable angina - Patient underwent PCI at [facility] which revealed multivessel disease - CT surgery on board and appreciate recommendations. Plans for CABG this Friday and discussed with patient and family who are agreeable - Continue cardiac meds with aspirin, statin, metoprolol, lisinopril - Plavix remains on hold pending surgery 2. Uncontrolled diabetes - A1c at OSH noted to be 12.3 - Diabetic education consultation appreciated - Lantus and Novolog doses continue to be adjusted for better glucose control to promote proper healing\ 3. Hypertension - Continue current medications 4. Cough with congestion - will try Mucinex for relief - Nasal saline PRN . Disposition - Continue current plan of care, pending CABG Friday Result Diagram: 07/15/18 0451 07/15/18 0451 Results 24hrs Laboratory Tests Test 07/14/18 11:12 07/14/18 11:38 07/14/18 17:02 07/14/18 20:27 Hemoglobin A1c 11.9 H Bedside Glucose 201 364 H 350 H Test 07/15/18 01:36 07/15/18 04:51 07/15/18 08:00 Bedside Glucose 261 H 177 White Blood Count 9.5 Red Blood Count 3.90 L Hemoglobin 11.3 L Hematocrit 33.4 L Mean Corpuscular 85.6 Volume Mean Corpuscular 29.0 Hemoglobin Mean Corpuscular 33.8 Hemoglobin Concent Red Cell 11.6 Distribution Width Platelet Count 209 Mean Platelet Volume 10.2 Immature 0.400 Granulocytes % Neutrophils % 60.9 Lymphocytes % 28.0 Monocytes % 6.9 Eosinophils % 3.4 Basophils % 0.4 Nucleated Red Blood 0.0 Cells % Immature 0.040 H Granulocytes # Neutrophils # 5.8 Lymphocytes # 2.7 Monocytes # 0.7 Eosinophils # 0.3 Basophils # 0.0 Nucleated Red Blood 0.0 Cells # Sodium Level 140 Potassium Level 4.4 Chloride Level 101 Carbon Dioxide Level 25 Anion Gap 14 H Blood Urea Nitrogen 18 Creatinine 0.94 Est Glomerular > 60 Filtrat Rate mL/min Glucose Level 190 Calcium Level 9.4 Phosphorus Level 3.3 Magnesium Level 1.9 Subjective 24 Hr Interval Summary Free Text/Dictation Patient is complaining of generalized weakness and chest congestion this am. Denies any chest pain or shortness of breath. No acute overnight events. Exam/Review of Systems Exam Vitals Vital Signs Date Temp Pulse Resp B/P (MAP) Pulse Ox O2 O2 Flow FiO2 Time Delivery Rate 07/15/18 81 08:03 07/15/18 97.9 16 111/68 96 07:22 (82) Intake and Output 07/14/18 07/14/18 07/15/18 1414:59 22:59 06:59 IntakeIntake Total 750 ml 600 ml BalanceBalance 750 ml 600 ml Exam General: Patient is a pleasant female, currently lying in bed, fatigued Chest: Nontender Lungs: Clear to auscultation bilaterally no crackles rales or wheezing Heart: Normal S1-S2, Regular rhythm and rate. no murmurs Abdomen: Soft , nontender, nondistended , bowel sounds are present. No guarding no rebound tenderness Extremities: Normal to inspection, no edema no cyanosis Results Results 24hrs Laboratory Tests Test 07/14/18 11:12 07/14/18 11:38 07/14/18 17:02 07/14/18 20:27 Hemoglobin A1c 11.9 H Bedside Glucose 201 364 H 350 H Test 07/15/18 01:36 07/15/18 04:51 07/15/18 08:00 Bedside Glucose 261 H 177 White Blood Count 9.5 Red Blood Count 3.90 L Hemoglobin 11.3 L Hematocrit 33.4 L Mean Corpuscular 85.6 Volume Mean Corpuscular 29.0 Hemoglobin Mean Corpuscular 33.8 Hemoglobin Concent Red Cell 11.6 Distribution Width Platelet Count 209 Mean Platelet Volume 10.2 Immature 0.400 Granulocytes % Neutrophils % 60.9 Lymphocytes % 28.0 Monocytes % 6.9 Eosinophils % 3.4 Basophils % 0.4 Nucleated Red Blood 0.0 Cells % Immature 0.040 H Granulocytes # Neutrophils # 5.8 Lymphocytes # 2.7 Monocytes # 0.7 Eosinophils # 0.3 Basophils # 0.0 Nucleated Red Blood 0.0 Cells # Sodium Level 140 Potassium Level 4.4 Chloride Level 101 Carbon Dioxide Level 25 Anion Gap 14 H Blood Urea Nitrogen 18 Creatinine 0.94 Est Glomerular > 60 Filtrat Rate mL/min Glucose Level 190 Calcium Level 9.4 Phosphorus Level 3.3 Magnesium Level 1.9 Medications Medication Current Medications IV Flush (NS 3 ml) 3 ml PER PROTOCOL IV ; Start 07/11/18 at 05:30 Ondansetron HCl (Zofran Inj) 4 mg Q6H PRN IV NAUSEA/VOMITING Last administered on 07/13/18 00:09; Admin Dose 4 MG; Start 07/11/18 at 05:30 Nitroglycerin (Nitroglycerin (Sl Tab) 0.4 Mg) 1 tab Q5M PRN SL .CHEST PAIN; Start 07/11/18 at 05:30 Acetaminophen (Tylenol Tab) 650 mg Q6H PRN PO .PAIN 1-3 OR TEMP Last administered on 07/13/18 20:28; Admin Dose 650 MG; Start 07/11/18 at 05:30 Acetaminophen/ Hydrocodone Bitart ([place] (5/325)) 1 tab Q6H PRN PO .PAIN 4-6 Last administered on 07/12/18 08:15; Admin Dose 1 TAB; Start 07/11/18 at 05:30 Heparin Sodium (Porcine) (Heparin (5000 Units/1ml)) 5,000 unit Q8 SC Last administered on 07/15/18 05:35; Admin Dose 5,000 UNIT; Start 07/11/18 at 06:00 Aspirin (Halfprin) 81 mg DAILY PO Last administered on 07/15/18 07:58; Admin Dose 81 MG; Start 07/11/18 at 13:00 Atorvastatin Calcium (Lipitor) 40 mg HS PO Last administered on 07/14/18 20:23; Admin Dose 40 MG; Start 07/11/18 at 21:00 Metoprolol Tartrate (Lopressor) 25 mg BID PO Last administered on 07/15/18 07:59; Admin Dose 25 MG; Start 07/11/18 at 13:00 Lisinopril (Zestril) 20 mg DAILY PO Last administered on 07/15/18 07:59; Admin Dose 20 MG; Start 07/11/18 at 13:00 Diagnostic Test (Pha) (Accu-Chek) 1 ea 02 XX Last administered on 07/15/18 02:01; Admin Dose 1 EA; Start 07/12/18 at 02:00 Insulin Aspart (Novolog Insulin Pen) NOVOLOG *MODERATE* ALGORITHM WITH MEALS BEDTIME SC Last administered on 07/15/18at 08:08; Admin Dose 2 UNIT; Start 07/11/18 at 18:00 Miscellaneous Information 1 ea NOTE XX ; Start 07/11/18 at 13:00 Glucose (Glutose) 15 gm Q15M PRN PO DECREASED GLUCOSE; Start 07/11/18 at 13:00 Glucose (Glutose) 22.5 gm Q15M PRN PO DECREASED GLUCOSE; Start 07/11/18 at 13:00 Dextrose (D50w Syringe) 25 ml Q15M PRN IV DECREASED GLUCOSE; Start 07/11/18 at 13:00 Dextrose (D50w Syringe) 50 ml Q15M PRN IV DECREASED GLUCOSE; Start 07/11/18 at 13:00 Glucagon (Glucagen) 1 mg Q15M PRN IM DECREASED GLUCOSE; Start 07/11/18 at 13:00 Glucose (Glutose) 15 gm Q15M PRN BUCCAL DECREASED GLUCOSE; Start 07/11/18 at 13 :00 Pantoprazole (Protonix Tab) 40 mg DAILY@06 PO Last administered on 07/15/18at 05:31; Admin Dose 40 MG; Start 07/11/18 at 15:30 Simethicone (Mylicon) 80 mg QID PRN GTB DISTENSION/GAS/BLOATING Last administered on 07/14/18at 20:25; Admin Dose 80 MG; Start 07/13/18 at 12:30 Insulin Aspart (Novolog Insulin Pen) 10 unit WITH MEALS SC Last administered on 07/15/18at 08:09; Admin Dose 10 UNIT; Start 07/14/18 at 18:00 Insulin Glargine (Lantus) 22 units DAILY@0800 SC Last administered on 07/15/18at 08:08; Admin Dose 22 UNITS; Start 07/15/18 at 08:00 Morphine Sulfate (morphine) 6 mg Q4H PRN PO SEVERE PAIN LEVEL 7-10; Start 07/14/18 at 22:00 Guaifenesin (Mucinex) 600 mg BID PO ; Start 07/15/18 at 10:30 Sodium Chloride (Deep Sea) 2 spray BID PRN NASAL congestion; Start 07/15/18 at 10:30 KARINA MADDOX MD Jul 15, 2018 10:50
[2018-07-15] MEDS: GUAIFENESIN LA 600 MG TABSR PO SCH ×2 (11:49→21:10)
--- NOTE | 2018-07-15 20:48 | PN ---
Date/Time of Note Date/Time of Note DATE: 07/15/18 TIME: 20:47 Assessment/Plan Lines/Catheters IV Catheter Type (from Nrsg): Saline Lock Roa in Place (from Nrsg): No Assessment/Plan Assessment/Plan Coronary artery disease Pt stable Plan for coronary artery bypass grafting on Friday Awaiting CD from [facility] [place] Subjective 24 Hr Interval Summary Constitutional: improved Pain Control: mild Exam/Review of Systems Vital Signs Vitals Vital Signs Date Temp Pulse Resp B/P (MAP) Pulse Ox O2 O2 Flow FiO2 Time Delivery Rate 07/15/18 75 20:00 07/15/18 98.3 18 120/65 97 19:37 (83) Intake and Output 07/14/18 07/14/18 07/15/18 1414:59 22:59 06:59 IntakeIntake Total 750 ml 600 ml BalanceBalance 750 ml 600 ml Exam Eyes: nl conjunctiva, EOMI, nl lids, nl sclera ENMT: nl external ears & nose, nl lips & teeth, nl nasal mucosa & septum, muc marshal pink and moist Neck: supple, non-tender Respiratory: clear to auscultation, normal air movement Cardiovascular: regular rate and rhythm, nl pulses Gastrointestinal: soft, nl liver, spleen, non-tender Results Result Diagram: 07/15/1845007/15/18 045 VANIA LAMB MD Jul 15, 2018 20:48
[2018-07-15] MEDS: ATORVASTATIN 40 MG TAB PO SCH (21:11)
[2018-07-16] VITALS (12 sets, daily range): BP systolic 99–138; BP diastolic 57–70; PULSE 61–92; RESP 16–18
[2018-07-16] MEDS: ACCU-CHEK XX SCH (02:00)
[2018-07-16] MEDS: PANTOPRAZOLE (EC) 40 MG TAB PO SCH (06:12)
[2018-07-16] MEDS: HEPARIN 5,000 UNIT/1 ML VIAL SC SCH ×3 (06:18→22:23)
[2018-07-16] MEDS: METOPROLOL 25 MG TAB PO SCH ×2 (08:27→21:02)
[2018-07-16] MEDS: LISINOPRIL 20 MG TAB PO SCH (08:27)
[2018-07-16] MEDS: GUAIFENESIN LA 600 MG TABSR PO SCH ×2 (08:27→21:01)
[2018-07-16] MEDS: ASPIRIN (EC) 81 MG TAB PO SCH (08:27)
[2018-07-16] MEDS: INSULIN ASPART [NOVOLOG] 3 ML PEN SC SCH ×7 (08:41→21:00)
[2018-07-16] MEDS: INSULIN GLARGINE [LANTus] (100 UNITS/ML) SYG SC SCH (08:41)
--- NOTE | 2018-07-16 08:44 | PN ---
Date/Time of Note Date/Time of Note DATE: 07/16/18 TIME: 08:44 Assessment/Plan VTE Prophylaxis Risk score (from Nsg)>0 risk: 2 SCD applied (from Nsg): No SCD contraindicated: low risk/ambulating Pharmacological prophylaxis: heparin Lines/Catheters IV Catheter Type (from Nrsg): Saline Lock Urinary Cath still in place: No Assessment/Plan Assessment/Plan 1. Multivessel coronary disease with unstable angina - Plans for CABG tomorrow with CT Surgery - Patient underwent PCI at [facility] which revealed multivessel disease. Family to brain picker imaging disc today - Continue cardiac meds with aspirin, statin, metoprolol, lisinopril - Plavix remains on hold pending surgery 2. Uncontrolled diabetes - A1c at OSH noted to be 12.3 - Diabetic education consultation appreciated - Bo and Amos on board and adjustments made for better control 3. Hypertension - Continue current medications 4. Cough with congestion - will try Mucinex for relief - Nasal saline PRN 5. Disposition - Continue current plan of care, pending CABG tomorrow Result Diagram: 07/16/18 0510 07/16/18 0510 Results 24hrs Laboratory Tests Test 07/15/18 11:50 07/15/18 16:54 07/15/18 21:09 07/16/18 05:10 Bedside Glucose 183 260 H 164 White Blood Count 9.7 Red Blood Count 4.04 L Hemoglobin 11.7 L Hematocrit 34.5 L Mean Corpuscular 85.4 Volume Mean Corpuscular 29.0 Hemoglobin Mean Corpuscular 33.9 Hemoglobin Concent Red Cell 11.9 Distribution Width Platelet Count 213 Mean Platelet Volume 10.1 Immature 0.300 Granulocytes % Neutrophils % 60.7 Lymphocytes % 28.5 Monocytes % 7.3 Eosinophils % 2.8 Basophils % 0.4 Nucleated Red Blood 0.0 Cells % Immature 0.030 Granulocytes # Neutrophils # 5.9 Lymphocytes # 2.8 Monocytes # 0.7 Eosinophils # 0.3 Basophils # 0.0 Nucleated Red Blood 0.0 Cells # Sodium Level 140 Potassium Level 4.2 Chloride Level 107 Carbon Dioxide Level 27 Anion Gap 6 # Blood Urea Nitrogen 14 Creatinine 0.85 Glucose Level 153 Calcium Level 9.4 Phosphorus Level 3.4 Magnesium Level 2.0 Albumin 3.6 Test 07/16/18 07:43 Bedside Glucose 165 Subjective 24 Hr Interval Summary Free Text/Dictation Patient denies any acute issues. No acute overnight events. Family went to physically brain picker PCI CD from [facility]. Exam/Review of Systems Exam Vitals Vital Signs Date Temp Pulse Resp B/P (MAP) Pulse Ox O2 O2 Flow FiO2 Time Delivery Rate 07/16/18 86 08:04 07/16/18 98.6 18 113/63 98 Room Air 07:56 (80) Intake and Output 07/15/18 07/15/18 07/16/18 1515:00 23:00 07:00 IntakeIntake Total 950 ml 800 ml BalanceBalance 950 ml 800 ml Exam General: Patient is a pleasant male, sitting in bedside chair. no acute distress Chest: Nontender Lungs: Clear to auscultation bilaterally no crackles rales or wheezing Heart: Normal S1-S2, Regular rhythm and rate. no murmurs Abdomen: Soft , nontender, nondistended , bowel sounds are present. No guarding no rebound tenderness Extremities: Normal to inspection, no edema no cyanosis Results Results 24hrs Laboratory Tests Test 07/15/18 11:50 07/15/18 16:54 07/15/18 21:09 07/16/18 05:10 Bedside Glucose 183 260 H 164 White Blood Count 9.7 Red Blood Count 4.04 L Hemoglobin 11.7 L Hematocrit 34.5 L Mean Corpuscular 85.4 Volume Mean Corpuscular 29.0 Hemoglobin Mean Corpuscular 33.9 Hemoglobin Concent Red Cell 11.9 Distribution Width Platelet Count 213 Mean Platelet Volume 10.1 Immature 0.300 Granulocytes % Neutrophils % 60.7 Lymphocytes % 28.5 Monocytes % 7.3 Eosinophils % 2.8 Basophils % 0.4 Nucleated Red Blood 0.0 Cells % Immature 0.030 Granulocytes # Neutrophils # 5.9 Lymphocytes # 2.8 Monocytes # 0.7 Eosinophils # 0.3 Basophils # 0.0 Nucleated Red Blood 0.0 Cells # Sodium Level 140 Potassium Level 4.2 Chloride Level 107 Carbon Dioxide Level 27 Anion Gap 6 # Blood Urea Nitrogen 14 Creatinine 0.85 Glucose Level 153 Calcium Level 9.4 Phosphorus Level 3.4 Magnesium Level 2.0 Albumin 3.6 Test 07/16/18 07:43 Bedside Glucose 165 Medications Medication Current Medications IV Flush (NS 3 ml) 3 ml PER PROTOCOL IV ; Start 07/11/18 at 05:30 Ondansetron HCl (Zofran Inj) 4 mg Q6H PRN IV NAUSEA/VOMITING Last administered on 07/13/18 00:09; Admin Dose 4 MG; Start 07/11/18 at 05:30 Nitroglycerin (Nitroglycerin (Sl Tab) 0.4 Mg) 1 tab Q5M PRN SL .CHEST PAIN; Start 07/11/18 at 05:30 Acetaminophen (Tylenol Tab) 650 mg Q6H PRN PO .PAIN 1-3 OR TEMP Last administered on 07/13/18 20:28; Admin Dose 650 MG; Start 07/11/18 at 05:30 Acetaminophen/ Hydrocodone Bitart ([place] (5/325)) 1 tab Q6H PRN PO .PAIN 4-6 Last administered on 07/12/18 08:15; Admin Dose 1 TAB; Start 07/11/18 at 05:30 Heparin Sodium (Porcine) (Heparin (5000 Units/1ml)) 5,000 unit Q8 SC Last administered on 07/16/18 06:18; Admin Dose 5,000 UNIT; Start 07/11/18 at 06:00 Aspirin (Halfprin) 81 mg DAILY PO Last administered on 07/15/18 07:58; Admin Dose 81 MG; Start 07/11/18 at 13:00 Atorvastatin Calcium (Lipitor) 40 mg HS PO Last administered on 07/15/18 21:11; Admin Dose 40 MG; Start 07/11/18 at 21:00 Metoprolol Tartrate (Lopressor) 25 mg BID PO Last administered on 07/15/18 21:11; Admin Dose 25 MG; Start 07/11/18 at 13:00 Lisinopril (Zestril) 20 mg DAILY PO Last administered on 07/15/18 07:59; Admin Dose 20 MG; Start 07/11/18 at 13:00 Diagnostic Test (Pha) (Accu-Chek) 1 ea 02 XX Last administered on 07/15/18 02:01; Admin Dose 1 EA; Start 07/12/18 at 02:00 Insulin Aspart (Novolog Insulin Pen) NOVOLOG *MODERATE* ALGORITHM WITH MEALS BEDTIME SC Last administered on 07/15/18 16:58; Admin Dose 6 UNIT; Start 07/11/18 at 18:00 Miscellaneous Information 1 ea NOTE XX ; Start 07/11/18 at 13:00 Glucose (Glutose) 15 gm Q15M PRN PO DECREASED GLUCOSE; Start 07/11/18 at 13:00 Glucose (Glutose) 22.5 gm Q15M PRN PO DECREASED GLUCOSE; Start 07/11/18 at 13:00 Dextrose (D50w Syringe) 25 ml Q15M PRN IV DECREASED GLUCOSE; Start 07/11/18 at 13:00 Dextrose (D50w Syringe) 50 ml Q15M PRN IV DECREASED GLUCOSE; Start 07/11/18 at 13:00 Glucagon (Glucagen) 1 mg Q15M PRN IM DECREASED GLUCOSE; Start 07/11/18 at 13:00 Glucose (Glutose) 15 gm Q15M PRN BUCCAL DECREASED GLUCOSE; Start 07/11/18 at 13:00 Pantoprazole (Protonix Tab) 40 mg DAILY@06 PO Last administered on 07/16/18at 06:12; Admin Dose 40 MG; Start 07/11/18 at 15:30 Simethicone (Mylicon) 80 mg QID PRN GTB DISTENSION/GAS/BLOATING Last administered on 07/14/18at 20:25; Admin Dose 80 MG; Start 07/13/18 at 12:30 Insulin Aspart (Novolog Insulin Pen) 10 unit WITH MEALS SC Last administered on 07/15/18at 16:58; Admin Dose 10 UNIT; Start 07/14/18 at 18:00 Insulin Glargine (Lantus) 22 units DAILY@0800 SC Last administered on 07/15/18at 08:08; Admin Dose 22 UNITS; Start 07/15/18 at 08:00 Morphine Sulfate (morphine) 6 mg Q4H PRN PO SEVERE PAIN LEVEL 7-10; Start 07/14/18 at 22:00 Guaifenesin (Mucinex) 600 mg BID PO Last administered on 07/15/18at 21:10; Admin Dose 600 MG; Start 07/15/18 at 10:30 Sodium Chloride (Deep [place]) 2 spray BID PRN NASAL congestion; Start 07/15/18 at 10:30 KARINA MADDOX MD Jul 16, 2018 08:44
[2018-07-16] MEDS: ATORVASTATIN 40 MG TAB PO SCH (21:01)
--- NOTE | 2018-07-16 21:58 | PN ---
Date/Time of Note Date/Time of Note DATE: 07/16/18 TIME: 21:57 Assessment/Plan Lines/Catheters IV Catheter Type (from Nrsg): Saline Lock Roa in Place (from Nrsg): No Assessment/Plan Assessment/Plan Coronary artery disease We are finally able to receive the CD from [facility] today I have reviewed the CAT scan the patient's main pathology is a 99% LAD lesion a nd a diagonal lesion There is no significant lesion in the right coronary artery and the circumflex At this time the patient should be evaluated for possible stent placement as well Discussed with Dr. Martinez He will evaluate the patient tomorrow for possible stent placement Hold off on surgery Discussed with the family Subjective 24 Hr Interval Summary Constitutional: improved Pain Control: mild Exam/Review of Systems Vital Signs Vitals Vital Signs Date Temp Pulse Resp B/P (MAP) Pulse Ox O2 O2 Flow FiO2 Time Delivery Rate 07/16/18 98.5 79 16 107/58 93 20:12 (74) 07/16/18 Room Air 07:56 Intake and Output 07/15/18 07/15/18 07/16/18 1515:00 23:00 07:00 IntakeIntake Total 950 ml 800 ml BalanceBalance 950 ml 800 ml Exam Eyes: nl conjunctiva, EOMI, nl lids, nl sclera ENMT: nl external ears & nose, nl lips & teeth, nl nasal mucosa & septum, mucosa pink and moist Neck: supple, non-tender Respiratory: clear to auscultation, normal air movement Cardiovascular: regular rate and rhythm, nl pulses Gastrointestinal: soft, nl liver, spleen, non-tender Musculoskeletal: nl extremities to inspection, nl gait and stance Results Result Diagram: 07/16/18 0510 07/16/18 0510 VANIA LAMB MD Jul 16, 2018 21:58
[2018-07-17] VITALS (28 sets, daily range): BP systolic 111–172; BP diastolic 59–96; PULSE 60–120; RESP 16–21
[2018-07-17] MEDS: ACCU-CHEK XX SCH (02:00)
[2018-07-17] MEDS: PANTOPRAZOLE (EC) 40 MG TAB PO SCH (05:36)
[2018-07-17] MEDS: HEPARIN 5,000 UNIT/1 ML VIAL SC SCH ×4 (06:00→21:35)
[2018-07-17] MEDS ORDERED: INSULIN HUMAN REGULAR 100 UNIT in SOD CHLORIDE 0.9% 99 ML IV SCH (07:00)
[2018-07-17] MEDS ORDERED: PHENYLephrine 20MG IN 250 ML 250 ML IV SCH (07:00)
[2018-07-17] MEDS ORDERED: EPINEPHrine 4 MG in DEXTROSE 5% 246 ML IV SCH (07:00)
[2018-07-17] MEDS: INSULIN ASPART [NOVOLOG] 3 ML PEN SC SCH ×7 (07:48→21:00)
[2018-07-17] MEDS: INSULIN GLARGINE [LANTus] (100 UNITS/ML) SYG SC SCH (07:50)
[2018-07-17] MEDS: ASPIRIN (EC) 81 MG TAB PO SCH (09:00)
[2018-07-17] MEDS: GUAIFENESIN LA 600 MG TABSR PO SCH ×2 (09:00→21:21)
[2018-07-17] MEDS: LISINOPRIL 20 MG TAB PO SCH (10:33)
[2018-07-17] MEDS: METOPROLOL 25 MG TAB PO SCH ×2 (10:39→21:21)
--- NOTE | 2018-07-17 13:54 | PN ---
Date/Time of Note Date/Time of Note DATE: 07/17/18 TIME: 13:47 Assessment/Plan VTE Prophylaxis Risk score (from Nsg)>0 risk: 3 SCD applied (from Nsg): No SCD contraindicated: low risk/ambulating Pharmacological prophylaxis: other Lines/Catheters IV Catheter Type (from Nrsg): Saline Lock Urinary Cath still in place: No Assessment/Plan Assessment/Plan 1. CAD with unstable angina - Per CT surgery, after review of CD from [facility], appears to only have LAD and diagonal lesion. Consulted Cardiology to evaluate if possible to stent lesions or if CABG needed - Continue cardiac meds with aspirin, statin, metoprolol, lisinopril - Plavix remains on hold pending intervention 2. Uncontrolled diabetes - A1c at OSH noted to be 12.3 - Diabetic education consultation appreciated - Lantus and Novolog on board and adjustments made for better control - Upon d/c will give Metformin/Jardiance, Basaglar and Novolog- per DM educator recommendation 3. Hypertension - Continue current medications 4. Cough with congestion - Mucinex for relief - Nasal saline PRN 5. Disposition - Cardiology consultation pending to determine if stenting possible vs CABG Result Diagram: 07/17/18 0506 07/17/18 0506 Results 24hrs Laboratory Tests Test 07/16/18 17:15 07/16/18 21:01 07/17/18 05:06 07/17/18 07:46 Bedside Glucose 205 163 211 White Blood Count 10.6 Red Blood Count 3.80 L Hemoglobin 11.2 L Hematocrit 32.9 L Mean Corpuscular 86.6 Volume Mean Corpuscular 29.5 Hemoglobin Mean Corpuscular 34.0 Hemoglobin Concent Red Cell 11.8 Distribution Width Platelet Count 201 Mean Platelet Volume 10.2 Immature 0.400 Granulocytes % Neutrophils % 58.5 Lymphocytes % 31.0 Monocytes % 7.0 Eosinophils % 2.7 Basophils % 0.4 Nucleated Red Blood 0.0 Cells % Immature 0.040 H Granulocytes # Neutrophils # 6.2 Lymphocytes # 3.3 H Monocytes # 0.7 Eosinophils # 0.3 Basophils # 0.0 Nucleated Red Blood 0.0 Cells # Sodium Level 138 Potassium Level 4.3 Chloride Level 102 Carbon Dioxide Level 25 Anion Gap 11 Blood Urea Nitrogen 18 Creatinine 0.94 Glucose Level 217 Calcium Level 9.3 Phosphorus Level 3.5 Magnesium Level 1.9 Albumin 3.4 Test 2/22/19 12:16 Bedside Glucose 243 H Subjective 24 Hr Interval Summary Free Text/Dictation Patient doing well and daughter frustrated since she was told by [facility] that he needs CABG but seems as if he may just need stenting performed. Exam/Review of Systems Exam Vitals Vital Signs Date Temp Pulse Resp B/P (MAP) Pulse Ox O2 O2 Flow FiO2 Time Delivery Rate 07/17/18 71 12:05 07/17/18 98.2 19 120/76 98 11:22 (91) 07/16/18 Room Air 07:56 Intake and Output 07/16/18 07/16/18 07/17/18 1515:00 23:00 07:00 IntakeIntake Total 850 ml 400 ml BalanceBalance 850 ml 400 ml Exam General: Patient is a pleasant male, sitting in bedside chair. no acute distress Chest: Nontender Lungs: Clear to auscultation bilaterally no crackles rales or wheezing Heart: Normal S1-S2, Regular rhythm and rate. no murmurs Abdomen: Soft , nontender, nondistended , bowel sounds are present. No guarding no rebound tenderness Extremities: Normal to inspection, no edema no cyanosis Results Results 24hrs Laboratory Tests Test 07/16/18 17:15 07/16/18 21:01 07/17/18 05:06 07/17/18 07:46 Bedside Glucose 205 163 211 White Blood Count 10.6 Red Blood Count 3.80 L Hemoglobin 11.2 L Hematocrit 32.9 L Mean Corpuscular 86.6 Volume Mean Corpuscular 29.5 Hemoglobin Mean Corpuscular 34.0 Hemoglobin Concent Red Cell 11.8 Distribution Width Platelet Count 201 Mean Platelet Volume 10.2 Immature 0.400 Granulocytes % Neutrophils % 58.5 Lymphocytes % 31.0 Monocytes % 7.0 Eosinophils % 2.7 Basophils % 0.4 Nucleated Red Blood 0.0 Cells % Immature 0.040 H Granulocytes # Neutrophils # 6.2 Lymphocytes # 3.3 H Monocytes # 0.7 Eosinophils # 0.3 Basophils # 0.0 Nucleated Red Blood 0.0 Cells # Sodium Level 138 Potassium Level 4.3 Chloride Level 102 Carbon Dioxide Level 25 Anion Gap 11 Blood Urea Nitrogen 18 Creatinine 0.94 Glucose Level 217 Calcium Level 9.3 Phosphorus Level 3.5 Magnesium Level 1.9 Albumin 3.4 Test 07/17/18 12:16 Bedside Glucose 243 H Medications Medication Current Medications IV Flush (NS 3 ml) 3 ml PER PROTOCOL IV ; Start 07/11/18 at 05:30 Ondansetron HCl (Zofran Inj) 4 mg Q6H PRN IV NAUSEA/VOMITING Last administered on 07/13/18at 00:09; Admin Dose 4 MG; Start 07/11/18 at 05:30 Nitroglycerin (Nitroglycerin (Sl Tab) 0.4 Mg) 1 tab Q5M PRN SL .CHEST PAIN; Start 07/11/18 at 05:30 Acetaminophen (Tylenol Tab) 650 mg Q6H PRN PO .PAIN 1-3 OR TEMP Last administered on 07/13/18at 20:28; Admin Dose 650 MG; Start 07/11/18 at 05:30 Acetaminophen/ Hydrocodone Bitart (Terral (5/325)) 1 tab Q6H PRN PO .PAIN 4-6 Last administered on 07/12/18 08:15; Admin Dose 1 TAB; Start 07/11/18 at 05:30 Heparin Sodium (Porcine) (Heparin (5000 Units/1ml)) 5,000 unit Q8 SC Last administered on 07/17/18 07:03; Admin Dose 5,000 UNIT; Start 07/11/18 at 06:00 Aspirin (Halfprin) 81 mg DAILY PO Last administered on 07/16/18 08:27; Admin Dose 81 MG; Start 07/11/18 at 13:00 Atorvastatin Calcium (Lipitor) 40 mg HS PO Last administered on 07/16/18 21:01; Admin Dose 40 MG; Start 07/11/18 at 21:00 Metoprolol Tartrate (Lopressor) 25 mg BID PO Last administered on 07/17/18 10:39; Admin Dose 25 MG; Start 07/11/18 at 13:00 Lisinopril (Zestril) 20 mg DAILY PO Last administered on 07/17/18 10:33; Admin Dose 20 MG; Start 07/11/18 at 13:00 Diagnostic Test (Pha) (Accu-Chek) 1 ea 02 XX Last administered on 07/15/18at 02:01; Admin Dose 1 EA; Start 07/12/18 at 02:00 Insulin Aspart (Novolog Insulin Pen) NOVOLOG *MODERATE* ALGORITHM WITH MEALS BEDTIME SC Last administered on 07/17/18at 12:25; Admin Dose 6 UNIT; Start 07/11/18 at 18:00 Miscellaneous Information 1 ea NOTE XX ; Start 07/11/18 at 13:00 Glucose (Glutose) 15 gm Q15M PRN PO DECREASED GLUCOSE; Start 07/11/18 at 13:00 Glucose (Glutose) 22.5 gm Q15M PRN PO DECREASED GLUCOSE; Start 07/11/18 at 13:00 Dextrose (D50w Syringe) 25 ml Q15M PRN IV DECREASED GLUCOSE; Start 07/11/18 at 13:00 Dextrose (D50w Syringe) 50 ml Q15M PRN IV DECREASED GLUCOSE; Start 07/11/18 at 13:00 Glucagon (Glucagen) 1 mg Q15M PRN IM DECREASED GLUCOSE; Start 07/11/18 at 13:00 Glucose (Glutose) 15 gm Q15M PRN BUCCAL DECREASED GLUCOSE; Start 07/11/18 at 13:00 Pantoprazole (Protonix Tab) 40 mg DAILY@06 PO Last administered on 07/17/18at 05:36; Admin Dose 40 MG; Start 07/11/18 at 15:30 Simethicone (Mylicon) 80 mg QID PRN GTB DISTENSION/GAS/BLOATING Last administered on 07/16/18at 17:28; Admin Dose 80 MG; Start 07/13/18 at 12:30 Morphine Sulfate (morphine) 6 mg Q4H PRN PO SEVERE PAIN LEVEL 7-10; Start 07/14/18 at 22:00 Guaifenesin (Mucinex) 600 mg BID PO Last administered on 07/16/18at 21:01; Admin Dose 600 MG; Start 07/15/18 at 10:30 Sodium Chloride (Deep Sea) 2 spray BID PRN NASAL congestion; Start 07/15/18 at 10:30 Insulin Aspart (Novolog Insulin Pen) 12 unit WITH MEALS SC Last administered on 07/17/18at 12:25; Admin Dose 12 UNIT; Start 07/16/18 at 18:00 Insulin Glargine (Lantus) 25 units DAILY@0800 SC Last administered on 07/17/18at 07:50; Admin Dose 25 UNITS; Start 07/17/18 at 08:00 Epinephrine 4 mg/ Dextrose 250 ml @ 0 mls/hr INTRA-OP IV ; Start 07/17/18 at 07:00; Stop 07/17/18 at 17:00 Phenylephrine HCl 250 ml @ 0 mls/hr INTRA-OP IV ; Start 07/17/18 at 07:00; Stop 07/17/18 at 17:00 Insulin Human Regular 100 unit/ Sodium Chloride 100 ml @ 0 mls/hr INTRA-OP IV ; Start 07/17/18 at 07:00; Stop 07/17/18 at 17:00 KARINA MADDOX MD Jul 17, 2018 13:54
--- NOTE | 2018-07-17 14:49 | CONS ---
Assessment/Plan Assessment/Plan Hospital Course (Demo Recall) 1. Unstable angina 2. Coronary artery disease 3. Diabetes 4. Hypertension 5. Dyslipidemia Recommendations Continue optimize medical therapy including aspirin metoprolol statin. Different options discussed with the patient daughter in detail. It was decided to proceed with a coronary angiogram and better visualization of the coronary anatomy including the left main. If left main is not considered significant then we will proceed with high risk PCI of the LAD and diagonal instead of coronary artery bypass graft. Risks, benefits, and alternatives of procedure was discussed with the patient and daughter in detail. Risks including but not limited to risk of infection vascular complication, NC stroke arrhythmia risk of infection etc. discussed with them. Patient and the family consented. We will proceed with the procedure. Thank you for his referral. We will continue to follow along with you Consultation Date/Type/Reason Admit Date/Time Jul 11, 2018 at 04:15 Date of Consultation: Jul 17, 2018 Type of Consult Cardiology Reason for Consultation cad Requesting Provider: VANIA OLIVAS MD Date/Time of Note DATE: 07/17/18 TIME: 14:42 Hx of Present Illness Interventional cardiology consultation note Chief complaint: Chest pain coronary artery Reason for consult: Coronary artery disease evaluate for possible PCI History of present illness: Thank you for this referral. History was obtained from the patient discussion with her daughter discussion with Dr. Olivas [facility] review of the chart This is a pleasant 60-year-old gentleman with history of poorly controlled diabetes who was transferred from [facility] after he presented with unstable angina. Patient apparently has had 2 months of chest pain ongoing on and off. Exertional. Anterior chest pressure. Pain got worse came to see the [facility] workup including coronary angiogram has shown multivessel disease. Patient was transferred to our facility to get a bypass surgery. Last night coronary angiography was finally obtained and reviewed by CT surgery and after review it was felt that the patient may benefit from high risk PCI instead. I was kindly asked to evaluate and treat. Allergies: No known drug allergies Medications were reviewed as per medical reconciliation sheet Family history: No early coronary artery disease Social history: Non-smoker Past medical history: Diabetes hypertension dyslipidemia coronary arteries as above mentioned Review of system: Patient denies all others except for above-mentioned Past Medical History Medications Current Medications IV Flush (NS 3 ml) 3 ml PER PROTOCOL IV ; Start 07/11/18 at 05:30 Ondansetron HCl (Zofran Inj) 4 mg Q6H PRN IV NAUSEA/VOMITING Last administered on 07/13/18 00:09; Admin Dose 4 MG; Start 07/11/18 at 05:30 Nitroglycerin (Nitroglycerin (Sl Tab) 0.4 Mg) 1 tab Q5M PRN SL .CHEST PAIN; Start 07/11/18 at 05:30 Acetaminophen (Tylenol Tab) 650 mg Q6H PRN PO .PAIN 1-3 OR TEMP Last administered on 07/13/18 20:28; Admin Dose 650 MG; Start 07/11/18 at 05:30 Acetaminophen/ Hydrocodone Bitart (Kenna (5/325)) 1 tab Q6H PRN PO .PAIN 4-6 Last administered on 07/12/18 08:15; Admin Dose 1 TAB; Start 07/11/18 at 05:30 Heparin Sodium (Porcine) (Heparin (5000 Units/1ml)) 5,000 unit Q8 SC Last administered on 07/17/18 07:03; Admin Dose 5,000 UNIT; Start 07/11/18 at 06:00 Aspirin (Halfprin) 81 mg DAILY PO Last administered on 07/16/18 08:27; Admin Dose 81 MG; Start 07/11/18 at 13:00 Atorvastatin Calcium (Lipitor) 40 mg HS PO Last administered on 07/16/18 21:01; Admin Dose 40 MG; Start 07/11/18 at 21:00 Metoprolol Tartrate (Lopressor) 25 mg BID PO Last administered on 07/17/18 10:39; Admin Dose 25 MG; Start 07/11/18 at 13:00 Lisinopril (Zestril) 20 mg DAILY PO Last administered on 07/17/18 10:33; Admin Dose 20 MG; Start 07/11/18 at 13:00 Diagnostic Test (Pha) (Accu-Chek) 1 ea 02 XX Last administered on 07/15/18 02:01; Admin Dose 1 EA; Start 07/12/18 at 02:00 Insulin Aspart (Novolog Insulin Pen) NOVOLOG *MODERATE* ALGORITHM WITH MEALS BEDTIME SC Last administered on 07/17/18 12:25; Admin Dose 6 UNIT; Start 07/11/18 at 18:00 Miscellaneous Information 1 ea NOTE XX ; Start 07/11/18 at 13:00 Glucose (Glutose) 15 gm Q15M PRN PO DECREASED GLUCOSE; Start 07/11/18 at 13:00 Glucose (Glutose) 22.5 gm Q15M PRN PO DECREASED GLUCOSE; Start 07/11/18 at 13:00 Dextrose (D50w Syringe) 25 ml Q15M PRN IV DECREASED GLUCOSE; Start 07/11/18 at 13:00 Dextrose (D50w Syringe) 50 ml Q15M PRN IV DECREASED GLUCOSE; Start 07/11/18 at 13:00 Glucagon (Glucagen) 1 mg Q15M PRN IM DECREASED GLUCOSE; Start 07/11/18 at 13:00 Glucose (Glutose) 15 gm Q15M PRN BUCCAL DECREASED GLUCOSE; Start 07/11/18 at 13:00 Pantoprazole (Protonix Tab) 40 mg DAILY@06 PO Last administered on 07/17/18at 05:36; Admin Dose 40 MG; Start 07/11/18 at 15:30 Simethicone (Mylicon) 80 mg QID PRN GTB DISTENSION/GAS/BLOATING Last administered on 07/16/18at 17:28; Admin Dose 80 MG; Start 07/13/18 at 12:30 Morphine Sulfate (morphine) 6 mg Q4H PRN PO SEVERE PAIN LEVEL 7-10; Start 07/14/18 at 22:00 Guaifenesin (Mucinex) 600 mg BID PO Last administered on 07/16/18at 21:01; Admin Dose 600 MG; Start 07/15/18 at 10:30 Sodium Chloride (Deep Sea) 2 spray BID PRN NASAL congestion; Start 07/15/18 at 10:30 Insulin Aspart (Novolog Insulin Pen) 12 unit WITH MEALS SC Last administered on 07/17/18at 12:25; Admin Dose 12 UNIT; Start 07/16/18 at 18:00 Insulin Glargine (Lantus) 25 units DAILY@0800 SC Last administered on 07/17/18at 07:50; Admin Dose 25 UNITS; Start 07/17/18 at 08:00 Epinephrine 4 mg/ Dextrose 250 ml @ 0 mls/hr INTRA-OP IV ; Start 07/17/18 at 07:00; Stop 07/17/18 at 17:00 Phenylephrine HCl 250 ml @ 0 mls/hr INTRA-OP IV ; Start 07/17/18 at 07:00; Stop 07/17/18 at 17:00 Insulin Human Regular 100 unit/ Sodium Chloride 100 ml @ 0 mls/hr INTRA-OP IV ; Start 07/17/18 at 07:00; Stop 07/17/18 at 17:00 Allergies: Coded Allergies: No Known Allergy (Unverified , 07/15/18) Past Surgical History Past Surgical Hx: no surgical history Social History Alcohol Use: rarely Smoking Status: Former smoker Drug Use: none Exam/Review of Systems Vital Signs Vitals Vital Signs Date Temp Pulse Resp B/P (MAP) Pulse Ox O2 O2 Flow FiO2 Time Delivery Rate 07/17/18 71 12:05 07/17/18 98.2 19 120/76 98 11:22 (91) 07/16/18 Room Air 07:56 Intake and Output 07/16/18 07/16/18 07/17/18 1515:00 23:00 07:00 IntakeIntake Total 850 ml 400 ml BalanceBalance 850 ml 400 ml Exam Exam General: no acute distress HEENT: NC/AT. pupils are equal. round. NECK: NO JVD. no stridor. CV: RRR. systolic murmur; no gallop or rubs. PULM: no wheezing or rhonchi. GI: SOFT, NT, ND, no rebound or guarding Extremity: trace B/L LE edema. no clubbing. neuro: awake and alert, OX3. Psych: calm and pleasant rectal: deferred : normal Coronary angiogram done at [facility] [place] was personally reviewed. Right coronary arteries appear to be very large and dominant vessel with no flow-limiting obs truction. Left main was not visualized appear to be small with probably about 40% distal stenosis also could not be well visualized. Left anterior descending artery very small vessel with about 95-99% mid stenosis. Diagonal is also very small with diffuse disease left circumflex artery on my review did not appear to have any major flow-limiting obstruction Labs Result Diagram: 07/17/18 0506 07/17/18 0506 Results 24hrs Laboratory Tests Test 07/16/18 17:15 07/16/18 21:01 07/17/18 05:06 07/17/18 07:46 Bedside Glucose 205 163 211 White Blood Count 10.6 Red Blood Count 3.80 L Hemoglobin 11.2 L Hematocrit 32.9 L Mean Corpuscular 86.6 Volume Mean Corpuscular 29.5 Hemoglobin Mean Corpuscular 34.0 Hemoglobin Concent Red Cell 11.8 Distribution Width Platelet Count 201 Mean Platelet Volume 10.2 Immature 0.400 Granulocytes % Neutrophils % 58.5 Lymphocytes % 31.0 Monocytes % 7.0 Eosinophils % 2.7 Basophils % 0.4 Nucleated Red Blood 0.0 Cells % Immature 0.040 H Granulocytes # Neutrophils # 6.2 Lymphocytes # 3.3 H Monocytes # 0.7 Eosinophils # 0.3 Basophils # 0.0 Nucleated Red Blood 0.0 Cells # Sodium Level 138 Potassium Level 4.3 Chloride Level 102 Carbon Dioxide Level 25 Anion Gap 11 Blood Urea Nitrogen 18 Creatinine 0.94 Glucose Level 217 Calcium Level 9.3 Phosphorus Level 3.5 Magnesium Level 1.9 Albumin 3.4 Test 07/17/18 12:16 Bedside Glucose 243 H Medications Medications Current Medications IV Flush (NS 3 ml) 3 ml PER PROTOCOL IV ; Start 07/11/18 at 05:30 Ondansetron HCl (Zofran Inj) 4 mg Q6H PRN IV NAUSEA/VOMITING Last administered on 07/13/18at 00:09; Admin Dose 4 MG; Start 07/11/18 at 05:30 Nitroglycerin (Nitroglycerin (Sl Tab) 0.4 Mg) 1 tab Q5M PRN SL .CHEST PAIN; Start 07/11/18 at 05:30 Acetaminophen (Tylenol Tab) 650 mg Q6H PRN PO .PAIN 1-3 OR TEMP Last administered on 07/13/18at 20:28; Admin Dose 650 MG; Start 07/11/18 at 05:30 Acetaminophen/ Hydrocodone Bitart (Kenna (5/325)) 1 tab Q6H PRN PO .PAIN 4-6 Last administered on 07/12/18 08:15; Admin Dose 1 TAB; Start 07/11/18 at 05:30 Heparin Sodium (Porcine) (Heparin (5000 Units/1ml)) 5,000 unit Q8 SC Last administered on 07/17/18 07:03; Admin Dose 5,000 UNIT; Start 07/11/18 at 06:00 Aspirin (Halfprin) 81 mg DAILY PO Last administered on 07/16/18 08:27; Admin Dose 81 MG; Start 07/11/18 at 13:00 Atorvastatin Calcium (Lipitor) 40 mg HS PO Last administered on 07/16/18at 21:01; Admin Dose 40 MG; Start 07/11/18 at 21:00 Metoprolol Tartrate (Lopressor) 25 mg BID PO Last administered on 07/17/18at 10:39; Admin Dose 25 MG; Start 07/11/18 at 13:00 Lisinopril (Zestril) 20 mg DAILY PO Last administered on 07/17/18at 10:33; Admin Dose 20 MG; Start 07/11/18 at 13:00 Diagnostic Test (Pha) (Accu-Chek) 1 ea 02 XX Last administered on 07/15/18at 02:01; Admin Dose 1 EA; Start 07/12/18 at 02:00 Insulin Aspart (Novolog Insulin Pen) NOVOLOG *MODERATE* ALGORITHM WITH MEALS BEDTIME SC Last administered on 07/17/18at 12:25; Admin Dose 6 UNIT; Start 07/11/18 at 18:00 Miscellaneous Information 1 ea NOTE XX ; Start 07/11/18 at 13:00 Glucose (Glutose) 15 gm Q15M PRN PO DECREASED GLUCOSE; Start 07/11/18 at 13:00 Glucose (Glutose) 22.5 gm Q15M PRN PO DECREASED GLUCOSE; Start 07/11/18 at 13:00 Dextrose (D50w Syringe) 25 ml Q15M PRN IV DECREASED GLUCOSE; Start 07/11/18 at 13:00 Dextrose (D50w Syringe) 50 ml Q15M PRN IV DECREASED GLUCOSE; Start 07/11/18 at 13:00 Glucagon (Glucagen) 1 mg Q15M PRN IM DECREASED GLUCOSE; Start 07/11/18 at 13:00 Glucose (Glutose) 15 gm Q15M PRN BUCCAL DECREASED GLUCOSE; Start 07/11/18 at 13:00 Pantoprazole (Protonix Tab) 40 mg DAILY@06 PO Last administered on 07/17/18at 05:36; Admin Dose 40 MG; Start 07/11/18 at 15:30 Simethicone (Mylicon) 80 mg QID PRN GTB DISTENSION/GAS/BLOATING Last administered on 07/16/18at 17:28; Admin Dose 80 MG; Start 07/13/18 at 12:30 Morphine Sulfate (morphine) 6 mg Q4H PRN PO SEVERE PAIN LEVEL 7-10; Start 07/14/18 at 22:00 Guaifenesin (Mucinex) 600 mg BID PO Last administered on 07/16/18at 21:01; Admin Dose 600 MG; Start 07/15/18 at 10:30 Sodium Chloride (Deep Sea) 2 spray BID PRN NASAL congestion; Start 07/15/18 at 10:30 Insulin Aspart (Novolog Insulin Pen) 12 unit WITH MEALS SC Last administered on 07/17/18at 12:25; Admin Dose 12 UNIT; Start 07/16/18 at 18:00 Insulin Glargine (Lantus) 25 units DAILY@0800 SC Last administered on 07/17/18at 07:50; Admin Dose 25 UNITS; Start 07/17/18 at 08:00 Epinephrine 4 mg/ Dextrose 250 ml @ 0 mls/hr INTRA-OP IV ; Start 07/17/18 at 07:00; Stop 07/17/18 at 17:00 Phenylephrine HCl 250 ml @ 0 mls/hr INTRA-OP IV ; Start 07/17/18 at 07:00; Stop 07/17/18 at 17:00 Insulin Human Regular 100 unit/ Sodium Chloride 100 ml @ 0 mls/hr INTRA-OP IV ; Start 07/17/18 at 07:00; Stop 07/17/18 at 17:00 SEAN NOGUERA MD Jul 17, 2018 14:49
[2018-07-17] MEDS ORDERED: MIDAZOLAM 1 MG/ML 2 ML INJ ONE (15:14)
[2018-07-17] MEDS ORDERED: NITROGLYCERIN (IC) 100 MCG/ML INJ ONE (15:14)
[2018-07-17] MEDS ORDERED: VERAPAMIL 5 MG INJ ONE ×2 (15:14→15:17)
[2018-07-17] MEDS ORDERED: HEPARIN 1000 UNITS/ML 10 ML INJ ONE (15:14)
[2018-07-17] MEDS ORDERED: LIDOCAINE 1% (MDV) 20 ML INJ ONE (15:14)
[2018-07-17] MEDS ORDERED: IODIXANOL LOCM 100 ML BTL ONE (15:14)
[2018-07-17] MEDS ORDERED: SOD CHLORIDE 0.9% 500 ML ONE (15:17)
[2018-07-17] MEDS ORDERED: FENTAnyl 50 MCG/ML VIAL ONE (15:24)
[2018-07-17] MEDS ORDERED: BIVALIRUDIN 250MG /NS 50 ML 50 ML IVPB ONE (15:24)
[2018-07-17] MEDS ORDERED: PHENYLephrine (100 MCG/ML) 5ML SYG ONE (15:35)
[2018-07-17] MEDS ORDERED: ATROPINE 1 MG/10 ML SYRINGE ONE (16:19)
[2018-07-17] MEDS ORDERED: SOD CHLORIDE 0.9% 1,000 ML IV SCH (16:25)
--- NOTE | 2018-07-17 16:26 | PN ---
Date/Time of Note Date/Time of Note DATE: 07/17/18 TIME: 16:25 Assessment/Plan Lines/Catheters IV Catheter Type (from Nrsg): Saline Lock Roa in Place (from Nrsg): No Assessment/Plan Assessment/Plan Coronary artery disease Medically stable Chest pain I discussed the case with cardiology who will evaluate the patient for possible angiogram and angioplasty of LAD If angioplasty of the LAD is not possible patient will need coronary artery bypass grafting Cussed with the family Subjective 24 Hr Interval Summary Constitutional: no complaints, improved, ambulates, BM, flatus, urine output Pain Control: mild Exam/Review of Systems Vital Signs Vitals Vital Signs Date Temp Pulse Resp B/P (MAP) Pulse Ox O2 O2 Flow FiO2 Time Delivery Rate 07/17/18 71 12:05 07/17/18 98.2 19 120/76 98 11:22 (91) 07/16/18 Room Air 07:56 Intake and Output 07/16/18 07/16/18 07/17/18 1515:00 23:00 07:00 IntakeIntake Total 850 ml 400 ml BalanceBalance 850 ml 400 ml Exam Eyes: nl conjunctiva, EOMI, nl lids, nl sclera ENMT: nl external ears & nose, nl lips & teeth, nl nasal mucosa & septum, mucosa pink and moist Neck: supple, non-tender Respiratory: clear to auscultation, normal air movement Cardiovascular: regular rate and rhythm, nl pulses Gastrointestinal: soft, nl liver, spleen, non-tender Musculoskeletal: nl extremities to inspection, nl gait and stance Results Result Diagram: 07/17/18 0506 07/17/18 0506 VANIA LAMB MD Jul 17, 2018 16:26
--- NOTE | 2018-07-17 16:34 | OPR ---
Date/Time of Note Date/Time of Note DATE: 07/17/18 TIME: 16:27 Operative Report Procedure Date: Jul 17, 2018 Preoperative Diagnosis unstable angina Postoperative Diagnosis same Operation/Procedure Performed IVUS LM/ LAD Surgeon see signature line General Lot Attendant [email or web address] Anesthesia Type: moderate sedation Estimated Blood Loss: minimal Transfusion none Specimen None Grafts/Implants none Complications none Procedure Description Hide Sorter: Sean Martinez MD Indication: 60-year-old gentleman with unstable angina. Patient was noted to have significant LAD disease. He had a unclear left main disease. After discussion with his cardiac surgery and the patient family decided to bring the patient for coronary angiography and further evaluation of the left main to CVA PCI is an option Procure performed: #1 l selective left coronary angiogram #2 Right femoral angiogram and closure using a Perclose device 3. Successful intravascular ultrasound of the left main and proximal left anterior descending artery 4. Moderate sedation for more than 60 minutes Findings: 1. Left main: is calcified and small. It is about 40-50% distal stenosis but the diameter is only 3 mm at the distal portion and is heavily calcified consistent with a significant left main disease. Pressure damping was also noted upon engagement with the guiding catheter 2. LAD: has 80 % calcified stenosis at ostial/proximal LAD, and 95 % stenosis at mid LAD. It is small but wraps around the apex. Diagonal is also small with about 80% diffuse proximal stenosis 3. Left circumflex artery: is nondominant. it has 30-40 % stenosis 4 Procedure in detail: Written informed consent with obtained after risks benefits and alternatives discussed with the patient in detail. risks including but not limited to risk of infection vascular complications, bleeding complications, GA stroke arrhythmia renal failure at even were discussed with the patient in detail. Patient was brought into the cardiac cath lab nurse and placed in supine position. Right and left groin area was prepped and draped in regular sterile fashion and then he was in anesthetized using 1% lidocaine. Right femoral artery was cannulated and using modified seldinger technique a 6 Yi sheath was placed in the femoral artery. Femoral angiogram was performed . A JL4 guiding catheter was advanced to engage the left main coronary artery. Angiographic view was obtained after intracoronary nitroglycerin was given. It was decided to do IVS of the left main coronary artery PT wire was used and advanced across the lesion and placed distal to the lesion in the LAD. Intravascular ultrasound was advanced and imaging was obtained. Left main appears to be significantly diseased with calcium and down to 3 mm in diameter the distal left main disease. Cath and guidewire was removed. perclose was successfully deployed. Patient tolerated the procedure well with no complication. Patient was transferred to ICU in stable condition. contrast used: 80 cc Visipaque Conclusions: Coronary angiography and IVUS of the left main and proximal LAD shows significant stenosis at this area. Recommendations: Coronary artery bypass graft SEAN MARTINEZ MD [facility] SEAN MARTINEZ MD Jul 17, 2018 16:34
[2018-07-17] MEDS: ISOSORBIDE DINITRATE 20 MG TAB PO SCH (17:31)
[2018-07-17] MEDS: ATORVASTATIN 40 MG TAB PO SCH (21:20)
[2018-07-18] VITALS (11 sets, daily range): BP systolic 120–147; BP diastolic 56–83; PULSE 35–151; RESP 18
[2018-07-18] MEDS: ACCU-CHEK XX SCH (02:00)
[2018-07-18] MEDS: PANTOPRAZOLE (EC) 40 MG TAB PO SCH (05:53)
[2018-07-18] MEDS: HEPARIN 5,000 UNIT/1 ML VIAL SC SCH ×3 (05:59→21:22)
[2018-07-18] MEDS: GUAIFENESIN LA 600 MG TABSR PO SCH ×2 (08:13→20:16)
[2018-07-18] MEDS: ASPIRIN (EC) 81 MG TAB PO SCH (08:13)
[2018-07-18] MEDS: LISINOPRIL 20 MG TAB PO SCH (08:13)
[2018-07-18] MEDS: METOPROLOL 25 MG TAB PO SCH ×2 (08:13→20:10)
[2018-07-18] MEDS: ISOSORBIDE DINITRATE 20 MG TAB PO SCH ×2 (08:14→20:10)
[2018-07-18] MEDS: INSULIN ASPART [NOVOLOG] 3 ML PEN SC SCH ×7 (08:30→20:25)
[2018-07-18] MEDS: INSULIN GLARGINE [LANTus] (100 UNITS/ML) SYG SC SCH (08:30)
--- NOTE | 2018-07-18 08:33 | CONS ---
Assessment/Plan Assessment/Plan Assessment/Plan (Daily) 1. Unstable angina 2. Coronary artery disease 3. Diabetes 4. Hypertension 5. Dyslipidemia Recommendations Continue optimize medical therapy including aspirin metoprolol statin. [facility] Consultation Date/Type/Reason Admit Date/Time Jul 11, 2018 at 04:15 Initial Consult Date 07/17/18 Type of Consult Cardiology Requesting Provider: VANIA LAMB MD Date/Time of Note DATE: 07/18/18 TIME: 08:32 24 HR Interval Summary Free Text/Dictation The aptient with no chest pain but weakness Exam/Review of Systems Vital Signs Vitals Vital Signs Date Temp Pulse Resp B/P (MAP) Pulse Ox O2 O2 Flow FiO2 Time Delivery Rate 07/18/18 98.7 122 18 147/83 94 Room Air 08:12 (104) Intake and Output 07/17/18 07/17/18 07/18/18 1515:00 23:00 07:00 IntakeIntake Total 425 ml 480 ml BalanceBalance 425 ml 480 ml Labs Result Diagram: 07/18/18 0517 07/18/18 0517 Results 24hrs Laboratory Tests Test 07/17/18 12:16 07/17/18 18:20 07/17/18 21:01 07/18/18 05:17 Bedside Glucose 243 H 158 124 White Blood Count 11.0 H Red Blood Count 3.78 L Hemoglobin 11.2 L Hematocrit 32.5 L Mean Corpuscular 86.0 Volume Mean Corpuscular 29.6 Hemoglobin Mean Corpuscular 34.5 Hemoglobin Concent Red Cell 11.8 Distribution Width Platelet Count 221 Mean Platelet Volume 10.2 Immature 0.300 Granulocytes % Neutrophils % 77.7 H Lymphocytes % 14.4 L Monocytes % 6.7 Eosinophils % 0.6 Basophils % 0.3 Nucleated Red Blood 0.0 Cells % Immature 0.030 Granulocytes # Neutrophils # 8.6 H Lymphocytes # 1.6 Monocytes # 0.7 Eosinophils # 0.1 Basophils # 0.0 Nucleated Red Blood 0.0 Cells # Sodium Level 141 Potassium Level 4.2 Chloride Level 107 Carbon Dioxide Level 23 Anion Gap 11 Blood Urea Nitrogen 18 Creatinine 0.98 Est Glomerular > 60 Filtrat Rate mL/min Glucose Level 215 Calcium Level 9.4 Phosphorus Level 3.1 Magnesium Level 1.7 Total Bilirubin 0.8 Direct Bilirubin 0.00 Indirect Bilirubin 0.8 Aspartate Amino 27 Transf (AST/SGOT) Alanine 26 Aminotransferase (AL T/SGPT) Alkaline Phosphatase 107 Total Protein 6.9 Albumin 3.6 Globulin 3.30 H Albumin/Globulin 1.09 Ratio Test 07/18/18 07:57 Bedside Glucose 201 Medications Medications Current Medications IV Flush (NS 3 ml) 3 ml PER PROTOCOL IV ; Start 07/11/18 at 05:30 Ondansetron HCl (Zofran Inj) 4 mg Q6H PRN IV NAUSEA/VOMITING Last administered on 07/13/18 00:09; Admin Dose 4 MG; Start 07/11/18 at 05:30 Nitroglycerin (Nitroglycerin (Sl Tab) 0.4 Mg) 1 tab Q5M PRN SL .CHEST PAIN; Start 07/11/18 at 05:30 Acetaminophen (Tylenol Tab) 650 mg Q6H PRN PO .PAIN 1-3 OR TEMP Last administered on 07/13/18at 20:28; Admin Dose 650 MG; Start 07/11/18 at 05:30 Acetaminophen/ Hydrocodone Bitart ([place] (5/325)) 1 tab Q6H PRN PO .PAIN 4-6 Last administered on 07/12/18 08:15; Admin Dose 1 TAB; Start 07/11/18 at 05:30 Heparin Sodium (Porcine) (Heparin (5000 Units/1ml)) 5,000 unit Q8 SC Last administered on 07/18/18 05:59; Admin Dose 5,000 UNIT; Start 07/11/18 at 06:00 Aspirin (Halfprin) 81 mg DAILY PO Last administered on 07/18/18 08:13; Admin Dose 81 MG; Start 07/11/18 at 13:00 Atorvastatin Calcium (Lipitor) 40 mg HS PO Last administered on 07/17/18 21:20; Admin Dose 40 MG; Start 07/11/18 at 21:00 Metoprolol Tartrate (Lopressor) 25 mg BID PO Last administered on 07/18/18 08:13; Admin Dose 25 MG; Start 07/11/18 at 13:00 Lisinopril (Zestril) 20 mg DAILY PO Last administered on 07/18/18 08:13; Admin Dose 20 MG; Start 07/11/18 at 13:00 Diagnostic Test (Pha) (Accu-Chek) 1 ea 02 XX Last administered on 07/15/18at 02:01; Admin Dose 1 EA; Start 07/12/18 at 02:00 Insulin Aspart (Novolog Insulin Pen) NOVOLOG *MODERATE* ALGORITHM WITH MEALS BEDTIME SC Last administered on 07/18/18 08:30; Admin Dose 4 UNIT; Start 07/11/18 at 18:00 Miscellaneous Information 1 ea NOTE XX ; Start 07/11/18 at 13:00 Glucose (Glutose) 15 gm Q15M PRN PO DECREASED GLUCOSE; Start 07/11/18 at 13:00 Glucose (Glutose) 22.5 gm Q15M PRN PO DECREASED GLUCOSE; Start 07/11/18 at 13:00 Dextrose (D50w Syringe) 25 ml Q15M PRN IV DECREASED GLUCOSE; Start 07/11/18 at 13:00 Dextrose (D50w Syringe) 50 ml Q15M PRN IV DECREASED GLUCOSE; Start 07/11/18 at 13:00 Glucagon (Glucagen) 1 mg Q15M PRN IM DECREASED GLUCOSE; Start 07/11/18 at 13:00 Glucose (Glutose) 15 gm Q15M PRN BUCCAL DECREASED GLUCOSE; Start 07/11/18 at 13:00 Pantoprazole (Protonix Tab) 40 mg DAILY@06 PO Last administered on 07/18/18at 05:53; Admin Dose 40 MG; Start 07/11/18 at 15:30 Simethicone (Mylicon) 80 mg QID PRN GTB DISTENSION/GAS/BLOATING Last administered on 07/16/18at 17:28; Admin Dose 80 MG; Start 07/13/18 at 12:30 Morphine Sulfate (morphine) 6 mg Q4H PRN PO SEVERE PAIN LEVEL 7-10; Start 07/14/18 at 22:00 Guaifenesin (Mucinex) 600 mg BID PO Last administered on 07/18/18at 08:13; Admin Dose 600 MG; Start 07/15/18 at 10:30 Sodium Chloride (Deep Sea) 2 spray BID PRN NASAL congestion; Start 07/15/18 at 10:30 Insulin Aspart (Novolog Insulin Pen) 12 unit WITH MEALS SC Last administered on 07/18/18at 08:30; Admin Dose 12 UNIT; Start 07/16/18 at 18:00 Insulin Glargine (Lantus) 25 units DAILY@0800 SC Last administered on 07/18/18at 08:30; Admin Dose 25 UNITS; Start 07/17/18 at 08:00 Isosorbide Dinitrate (Isordil) 40 mg BID PO Last administered on 07/18/18at 08:14; Admin Dose 40 MG; Start 07/17/18 at 17:00 DWAYNE LAO MD Jul 18, 2018 08:33
[2018-07-18] MEDS: ONDANSETRON 4 MG INJ IV PRN (08:46)
--- NOTE | 2018-07-18 09:25 | PN ---
Date/Time of Note Date/Time of Note DATE: 07/18/18 TIME: 09:25 Assessment/Plan VTE Prophylaxis Risk score (from Ns)>0 risk: 4 SCD applied (from Ns): Yes Pharmacological prophylaxis: heparin, other Lines/Catheters IV Catheter Type (from Nrsg): Saline Lock Urinary Cath still in place: No Assessment/Plan Assessment/Plan 1. CAD with unstable angina - Cardiology input appreciated s/p PCI 07/17/18. Recommending continue with CABG given multivessel disease appreciated - CT surgery on board and will plan for CABG - Continue cardiac meds with aspirin, statin, metoprolol, lisinopril - Plavix remains on hold pending intervention 2. Uncontrolled diabetes - A1c at OSH noted to be 12.3 - Diabetic education consultation appreciated - Lantus and Novolog on board and adjustments made for better control - Upon d/c will give Metformin/Jardiance, Basaglar and Novolog- per DM educator recommendation 3. Hypertension - Continue current medications 4. Cough with congestion - Mucinex for relief - Nasal saline PRN 5. Disposition - Plans for CABG Result Diagram: 07/18/1817 07/18/18 0517 Results 24hrs Laboratory Tests Test 07/17/18 12:16 07/17/18 18:20 07/17/18 21:01 07/18/18 05:17 Bedside Glucose 243 H 158 124 White Blood Count 11.0 H Red Blood Count 3.78 L Hemoglobin 11.2 L Hematocrit 32.5 L Mean Corpuscular 86.0 Volume Mean Corpuscular 29.6 Hemoglobin Mean Corpuscular 34.5 Hemoglobin Concent Red Cell 11.8 Distribution Width Platelet Count 221 Mean Platelet Volume 10.2 Immature 0.300 Granulocytes % Neutrophils % 77.7 H Lymphocytes % 14.4 L Monocytes % 6.7 Eosinophils % 0.6 Basophils % 0.3 Nucleated Red Blood 0.0 Cells % Immature 0.030 Granulocytes # Neutrophils # 8.6 H Lymphocytes # 1.6 Monocytes # 0.7 Eosinophils # 0.1 Basophils # 0.0 Nucleated Red Blood 0.0 Cells # Sodium Level 141 Potassium Level 4.2 Chloride Level 107 Carbon Dioxide Level 23 Anion Gap 11 Blood Urea Nitrogen 18 Creatinine 0.98 Est Glomerular > 60 Filtrat Rate mL/min Glucose Level 215 Calcium Level 9.4 Phosphorus Level 3.1 Magnesium Level 1.7 Total Bilirubin 0.8 Direct Bilirubin 0.00 Indirect Bilirubin 0.8 Aspartate Amino 27 Transf (AST/SGOT) Alanine 26 Aminotransferase (AL T/SGPT) Alkaline Phosphatase 107 Total Protein 6.9 Albumin 3.6 Globulin 3.30 H Albumin/Globulin 1.09 Ratio Test 07/18/18 07:57 07/18/18 08:45 Bedside Glucose 201 220 Subjective 24 Hr Interval Summary Free Text/Dictation Per daughter, patient was experiencing an episode of shaking earlier but denies appearing like seizure activity. He also didn't sleep well overnight since was uncomfortable. Currently no acute overnight events. Exam/Review of Systems Exam Vitals Vital Signs Date Temp Pulse Resp B/P (MAP) Pulse Ox O2 O2 Flow FiO2 Time Delivery Rate 07/18/18 98.7 122 18 147/83 94 Room Air 08:12 (104) Intake and Output 07/17/18 07/17/18 07/18/18 1515:00 23:00 07:00 IntakeIntake Total 425 ml 480 ml BalanceBalance 425 ml 480 ml Exam General: Patient is a pleasant male, resting in bed, no acute distress Chest: Nontender Lungs: Clear to auscultation bilaterally no crackles rales or wheezing Heart: Normal S1-S2, Regular rhythm and rate. no murmurs Abdomen: Soft , nontender, nondistended , bowel sounds are present. No guarding no rebound tenderness Extremities: Normal to inspection, no edema no cyanosis Results Results 24hrs Laboratory Tests Test 07/17/18 12:16 07/17/18 18:20 07/17/18 21:01 07/18/18 05:17 Bedside Glucose 243 H 158 124 White Blood Count 11.0 H Red Blood Count 3.78 L Hemoglobin 11.2 L Hematocrit 32.5 L Mean Corpuscular 86.0 Volume Mean Corpuscular 29.6 Hemoglobin Mean Corpuscular 34.5 Hemoglobin Concent Red Cell 11.8 Distribution Width Platelet Count 221 Mean Platelet Volume 10.2 Immature 0.300 Granulocytes % Neutrophils % 77.7 H Lymphocytes % 14.4 L Monocytes % 6.7 Eosinophils % 0.6 Basophils % 0.3 Nucleated Red Blood 0.0 Cells % Immature 0.030 Granulocytes # Neutrophils # 8.6 H Lymphocytes # 1.6 Monocytes # 0.7 Eosinophils # 0.1 Basophils # 0.0 Nucleated Red Blood 0.0 Cells # Sodium Level 141 Potassium Level 4.2 Chloride Level 107 Carbon Dioxide Level 23 Anion Gap 11 Blood Urea Nitrogen 18 Creatinine 0.98 Est Glomerular > 60 Filtrat Rate mL/min Glucose Level 215 Calcium Level 9.4 Phosphorus Level 3.1 Magnesium Level 1.7 Total Bilirubin 0.8 Direct Bilirubin 0.00 Indirect Bilirubin 0.8 Aspartate Amino 27 Transf (AST/SGOT) Alanine 26 Aminotransferase (AL T/SGPT) Alkaline Phosphatase 107 Total Protein 6.9 Albumin 3.6 Globulin 3.30 H Albumin/Globulin 1.09 Ratio Test 07/18/18 07:57 07/18/18 08:45 Bedside Glucose 201 220 Medications Medication Current Medications IV Flush (NS 3 ml) 3 ml PER PROTOCOL IV ; Start 07/11/18 at 05:30 Ondansetron HCl (Zofran Inj) 4 mg Q6H PRN IV NAUSEA/VOMITING Last administered on 07/18/18 08:46; Admin Dose 4 MG; Start 07/11/18 at 05:30 Nitroglycerin (Nitroglycerin (Sl Tab) 0.4 Mg) 1 tab Q5M PRN SL .CHEST PAIN; Start 07/11/18 at 05:30 Acetaminophen (Tylenol Tab) 650 mg Q6H PRN PO .PAIN 1-3 OR TEMP Last administered on 07/13/18 20:28; Admin Dose 650 MG; Start 07/11/18 at 05:30 Acetaminophen/ Hydrocodone Bitart ([place] (5/325)) 1 tab Q6H PRN PO .PAIN 4-6 Last administered on 07/12/18 08:15; Admin Dose 1 TAB; Start 07/11/18 at 05:30 Heparin Sodium (Porcine) (Heparin (5000 Units/1ml)) 5,000 unit Q8 SC Last administered on 07/18/18 05:59; Admin Dose 5,000 UNIT; Start 07/11/18 at 06:00 Aspirin (Halfprin) 81 mg DAILY PO Last administered on 07/18/18 08:13; Admin Dose 81 MG; Start 07/11/18 at 13:00 Atorvastatin Calcium (Lipitor) 40 mg HS PO Last administered on 07/17/18 21:20; Admin Dose 40 MG; Start 07/11/18 at 21:00 Metoprolol Tartrate (Lopressor) 25 mg BID PO Last administered on 07/18/18 08:13; Admin Dose 25 MG; Start 07/11/18 at 13:00 Lisinopril (Zestril) 20 mg DAILY PO Last administered on 07/18/18 08:13; Admin Dose 20 MG; Start 07/11/18 at 13:00 Diagnostic Test (Pha) (Accu-Chek) 1 ea 02 XX Last administered on 07/15/18at 02:01; Admin Dose 1 EA; Start 07/12/18 at 02:00 Insulin Aspart (Novolog Insulin Pen) NOVOLOG *MODERATE* ALGORITHM WITH MEALS BEDTIME SC Last administered on 07/18/18 08:30; Admin Dose 4 UNIT; Start 07/11/18 at 18:00 Miscellaneous Information 1 ea NOTE XX ; Start 07/11/18 at 13:00 Glucose (Glutose) 15 gm Q15M PRN PO DECREASED GLUCOSE; Start 07/11/18 at 13:00 Glucose (Glutose) 22.5 gm Q15M PRN PO DECREASED GLUCOSE; Start 07/11/18 at 13:00 Dextrose (D50w Syringe) 25 ml Q15M PRN IV DECREASED GLUCOSE; Start 07/11/18 at 13:00 Dextrose (D50w Syringe) 50 ml Q15M PRN IV DECREASED GLUCOSE; Start 07/11/18 at 13:00 Glucagon (Glucagen) 1 mg Q15M PRN IM DECREASED GLUCOSE; Start 07/11/18 at 13:00 Glucose (Glutose) 15 gm Q15M PRN BUCCAL DECREASED GLUCOSE; Start 07/11/18 at 13:00 Pantoprazole (Protonix Tab) 40 mg DAILY@06 PO Last administered on 07/18/18at 05:53; Admin Dose 40 MG; Start 07/11/18 at 15:30 Simethicone (Mylicon) 80 mg QID PRN GTB DISTENSION/GAS/BLOATING Last administered on 07/16/18at 17:28; Admin Dose 80 MG; Start 07/13/18 at 12:30 Morphine Sulfate (morphine) 6 mg Q4H PRN PO SEVERE PAIN LEVEL 7-10; Start 07/14/18 at 22:00 Guaifenesin (Mucinex) 600 mg BID PO Last administered on 07/18/18at 08:13; Admin Dose 600 MG; Start 07/15/18 at 10:30 Sodium Chloride (Deep Sea) 2 spray BID PRN NASAL congestion; Start 07/15/18 at 10:30 Insulin Aspart (Novolog Insulin Pen) 12 unit WITH MEALS SC Last administered on 07/18/18 08:30; Admin Dose 12 UNIT; Start 07/16/18 at 18:00 Insulin Glargine (Lantus) 25 units DAILY@0800 SC Last administered on 07/18/18 08:30; Admin Dose 25 UNITS; Start 07/17/18 at 08:00 Isosorbide Dinitrate (Isordil) 40 mg BID PO Last administered on 07/18/18 08:14; Admin Dose 40 MG; Start 07/17/18 at 17:00 KARINA MADDOX MD Jul 18, 2018 09:25
--- NOTE | 2018-07-18 15:14 | PN ---
Date/Time of Note Date/Time of Note DATE: 07/18/18 TIME: 15:13 Assessment/Plan Lines/Catheters IV Catheter Type (from Nrs): Peripheral IV Roa in Place (from Nrsg): No Assessment/Plan Assessment/Plan The artery disease Patient was referred to cardiology for possible angiogram and angioplasty with stent placement in the LAD Intravascular ultrasound was done which showed significant amount of calcification in the left main Angioplasty and stenting of the LAD was not possible And to proceed with coronary artery bypass grafting on Friday Exam benefits and alternative therapies high risk nature of the operation explained to the patient and the family all questions answered Subjective 24 Hr Interval Summary Constitutional: no complaints, improved, ambulates, BM, flatus, urine output Pain Control: well controlled Exam/Review of Systems Vital Signs Vitals Vital Signs Date Temp Pulse Resp B/P (MAP) Pulse Ox O2 O2 Flow FiO2 Time Delivery Rate 07/18/18 93 12:01 07/18/18 98.7 18 147/83 94 Room Air 08:12 (104) Intake and Output 07/17/18 07/17/18 07/18/18 1515:00 23:00 07:00 IntakeIntake Total 425 ml 480 ml BalanceBalance 425 ml 480 ml Exam Eyes: nl conjunctiva, EOMI, nl lids, nl sclera ENMT: nl external ears & nose, nl lips & teeth, nl nasal mucosa & septum, mucosa pink and moist Neck: supple, non-tender Respiratory: clear to auscultation, normal air movement Cardiovascular: regular rate and rhythm, nl pulses Gastrointestinal: soft, nl liver, spleen, non-tender Musculoskeletal: nl extremities to inspection, nl gait and stance Results Result Diagram: 07/18/18 0517 07/18/18 0517 VANIA LAMB MD Jul 18, 2018 15:14
[2018-07-18] MEDS: ATORVASTATIN 40 MG TAB PO SCH (20:09)
[2018-07-19] VITALS (10 sets, daily range): BP systolic 90–169; BP diastolic 51–77; PULSE 77–118; RESP 18–20
[2018-07-19] MEDS: ACCU-CHEK XX SCH (01:46)
[2018-07-19] MEDS: PANTOPRAZOLE (EC) 40 MG TAB PO SCH (05:39)
[2018-07-19] MEDS: HEPARIN 5,000 UNIT/1 ML VIAL SC SCH ×3 (05:46→21:22)
[2018-07-19] MEDS: GUAIFENESIN LA 600 MG TABSR PO SCH ×2 (08:11→21:09)
[2018-07-19] MEDS: ASPIRIN (EC) 81 MG TAB PO SCH (08:11)
[2018-07-19] MEDS: ISOSORBIDE DINITRATE 20 MG TAB PO SCH ×2 (08:12→21:09)
[2018-07-19] MEDS: METOPROLOL 25 MG TAB PO SCH ×2 (08:12→21:09)
[2018-07-19] MEDS: LISINOPRIL 20 MG TAB PO SCH (08:12)
[2018-07-19] MEDS: INSULIN ASPART [NOVOLOG] 3 ML PEN SC SCH ×7 (08:20→21:23)
[2018-07-19] MEDS: INSULIN GLARGINE [LANTus] (100 UNITS/ML) SYG SC SCH (08:20)
--- NOTE | 2018-07-19 08:31 | PN ---
Date/Time of Note Date/Time of Note DATE: 07/19/18 TIME: 08:31 Assessment/Plan VTE Prophylaxis Risk score (from Nsg)>0 risk: 2 SCD applied (from Nsg): Yes Pharmacological prophylaxis: heparin Lines/Catheters IV Catheter Type (from Nrsg): Saline Lock Urinary Cath still in place: No Assessment/Plan Assessment/Plan 1. CAD with unstable angina - Plans for CABG tomorrow - Cardiology input appreciated s/p PCI 07/17/18. Recommending continue with CABG given multivessel disease appreciated - CT surgery on board and appreciate consultation - Continue cardiac meds with aspirin, statin, metoprolol, lisinopril - Plavix remains on hold pending intervention 2. Uncontrolled diabetes - A1c at OSH noted to be 12.3 - Diabetic education consultation appreciated - Lantus and Novolog on board and adjustments made for better control - Upon d/c will give Metformin/Jardiance, Basaglar and Novolog- per DM educator recommendation 3. Hypertension - Continue current medications 4. Cough with congestion - Mucinex for relief - Nasal saline PRN 5. Disposition - Plans for CABG Friday - NPO after midnight and heparin placed on hold Result Diagram: 07/18/1851607/18/18 0517 Results 24hrs Laboratory Tests Test 07/18/18 08:45 07/18/18 12:16 07/18/18 17:09 07/18/18 20:08 Bedside Glucose 220 213 178 253 H Test 07/19/18 01:45 07/19/18 08:10 Bedside Glucose 177 186 Subjective 24 Hr Interval Summary Free Text/Dictation Patient doing well with no new complaints. Family at bedside. No acute overnight events. Exam/Review of Systems Exam Vitals Vital Signs Date Temp Pulse Resp B/P (MAP) Pulse Ox O2 O2 Flow FiO2 Time Delivery Rate 07/19/18 98.2 77 18 140/71 95 07:24 (94) 07/19/18 Room Air 04:00 Intake and Output 07/18/18 07/18/18 07/19/18 1515:00 23:00 07:00 IntakeIntake Total 500 ml OutputOutput Total 950 ml BalanceBalance -450 ml Exam General: no acute distress. Chest: Nontender Lungs: Clear to auscultation bilaterally no crackles rales or wheezing Heart: Normal S1-S2, Regular rhythm and rate. no murmurs Abdomen: Soft , nontender, nondistended , bowel sounds are present. No guarding no rebound tenderness Extremities: Normal to inspection, no edema no cyanosis Skin: no rashes or lesions appreciated Results Results 24hrs Laboratory Tests Test 07/18/18 08:45 07/18/18 12:16 07/18/18 17:09 07/18/18 20:08 Bedside Glucose 220 213 178 253 H Test 07/19/18 01:45 07/19/18 08:10 Bedside Glucose 177 186 Medications Medication Current Medications IV Flush (NS 3 ml) 3 ml PER PROTOCOL IV ; Start 07/11/18 at 05:30 Ondansetron HCl (Zofran Inj) 4 mg Q6H PRN IV NAUSEA/VOMITING Last administered on 07/18/18 08:46; Admin Dose 4 MG; Start 07/11/18 at 05:30 Nitroglycerin (Nitroglycerin (Sl Tab) 0.4 Mg) 1 tab Q5M PRN SL .CHEST PAIN; Start 07/11/18 at 05:30 Acetaminophen (Tylenol Tab) 650 mg Q6H PRN PO .PAIN 1-3 OR TEMP Last administered on 07/13/18 20:28; Admin Dose 650 MG; Start 07/11/18 at 05:30 Acetaminophen/ Hydrocodone Bitart ([place] (5/325)) 1 tab Q6H PRN PO .PAIN 4-6 Last administered on 07/12/18 08:15; Admin Dose 1 TAB; Start 07/11/18 at 05:30 Heparin Sodium (Porcine) (Heparin (5000 Units/1ml)) 5,000 unit Q8 SC Last administered on 07/19/18 05:46; Admin Dose 5,000 UNIT; Start 07/11/18 at 06:00 Aspirin (Halfprin) 81 mg DAILY PO Last administered on 07/19/18 08:11; Admin Dose 81 MG; Start 07/11/18 at 13:00 Atorvastatin Calcium (Lipitor) 40 mg HS PO Last administered on 07/18/18 20:09; Admin Dose 40 MG; Start 07/11/18 at 21:00 Metoprolol Tartrate (Lopressor) 25 mg BID PO Last administered on 07/19/18 08:12; Admin Dose 25 MG; Start 07/11/18 at 13:00 Lisinopril (Zestril) 20 mg DAILY PO Last administered on 07/19/18at 08:12; Admin Dose 20 MG; Start 07/11/18 at 13:00 Diagnostic Test (Pha) (Accu-Chek) 1 ea 02 XX Last administered on 07/19/18at 01:46; Admin Dose 1 EA; Start 07/12/18 at 02:00 Insulin Aspart (Novolog Insulin Pen) NOVOLOG *MODERATE* ALGORITHM WITH MEALS BEDTIME SC Last administered on 07/19/18at 08:20; Admin Dose 4 UNIT; Start 07/11/18 at 18:00 Miscellaneous Information 1 ea NOTE XX ; Start 07/11/18 at 13:00 Glucose (Glutose) 15 gm Q15M PRN PO DECREASED GLUCOSE; Start 07/11/18 at 13:00 Glucose (Glutose) 22.5 gm Q15M PRN PO DECREASED GLUCOSE; Start 07/11/18 at 13:00 Dextrose (D50w Syringe) 25 ml Q15M PRN IV DECREASED GLUCOSE; Start 07/11/18 at 13:00 Dextrose (D50w Syringe) 50 ml Q15M PRN IV DECREASED GLUCOSE; Start 07/11/18 at 13:00 Glucagon (Glucagen) 1 mg Q15M PRN IM DECREASED GLUCOSE; Start 07/11/18 at 13:00 Glucose (Glutose) 15 gm Q15M PRN BUCCAL DECREASED GLUCOSE; Start 07/11/18 at 13:00 Pantoprazole (Protonix Tab) 40 mg DAILY@06 PO Last administered on 07/19/18at 05:39; Admin Dose 40 MG; Start 07/11/18 at 15:30 Simethicone (Mylicon) 80 mg QID PRN GTB DISTENSION/GAS/BLOATING Last administered on 07/16/18at 17:28; Admin Dose 80 MG; Start 07/13/18 at 12:30 Morphine Sulfate (morphine) 6 mg Q4H PRN PO SEVERE PAIN LEVEL 7-10; Start 07/14/18 at 22:00 Guaifenesin (Mucinex) 600 mg BID PO Last administered on 07/19/18at 08:11; Admin Dose 600 MG; Start 07/15/18 at 10:30 Sodium Chloride (Deep Sea) 2 spray BID PRN NASAL congestion; Start 07/15/18 at 10:30 Insulin Aspart (Novolog Insulin Pen) 12 unit WITH MEALS SC Last administered on 07/19/18 08:20; Admin Dose 12 UNIT; Start 07/16/18 at 18:00 Insulin Glargine (Lantus) 25 units DAILY@0800 SC Last administered on 07/19/18 08:20; Admin Dose 25 UNITS; Start 07/17/18 at 08:00 Isosorbide Dinitrate (Isordil) 40 mg BID PO Last administered on 07/19/18at 08:12; Admin Dose 40 MG; Start 07/17/18 at 17:00 KARINA MADDOX MD Jul 19, 2018 08:31
--- NOTE | 2018-07-19 13:52 | PN ---
Date/Time of Note Date/Time of Note DATE: 07/19/18 TIME: 13:52 Assessment/Plan Lines/Catheters IV Catheter Type (from Nrsg): Saline Lock Roa in Place (from Nrsg): No Assessment/Plan Assessment/Plan Coronary artery disease Unable to do PCI plan to proceed with coronary artery bypass grafting Subjective 24 Hr Interval Summary Constitutional: improved Pain Control: mild Exam/Review of Systems Vital Signs Vitals Vital Signs Date Temp Pulse Resp B/P (MAP) Pulse Ox O2 O2 Flow FiO2 Time Delivery Rate 07/19/18 89 12:40 07/19/18 98.4 18 90/51 (64) 95 11:10 07/19/18 Room Air 04:00 Intake and Output 07/18/18 07/18/18 07/19/18 1515:00 23:00 07:00 IntakeIntake Total 500 ml OutputOutput Total 950 ml BalanceBalance -450 ml Exam Eyes: nl conjunctiva, EOMI, nl lids, nl sclera ENMT: nl external ears & nose, nl lips & teeth, nl nasal mucosa & septum, mucosa pink and moist Neck: supple, non-tender Respiratory: clear to auscultation, normal air movement Cardiovascular: regular rate and rhythm, nl pulses Gastrointestinal: soft, nl liver, spleen, non-tender Musculoskeletal: nl extremities to inspection, nl gait and stance Results Result Diagram: 07/18/1851607/18/18516 VANIA LAMB MD Jul 19, 2018 13:52
[2018-07-19] MEDS: ATORVASTATIN 40 MG TAB PO SCH (21:09)
[2018-07-20] VITALS (23 sets, daily range): BP systolic 88–144; BP diastolic 37–64; PULSE 75–118; RESP 16–20
[2018-07-20] MEDS: ACCU-CHEK XX SCH ×4 (02:50→23:00)
[2018-07-20] MEDS: PANTOPRAZOLE (EC) 40 MG TAB PO SCH (05:15)
[2018-07-20] MEDS ORDERED: TRANEXAMIC ACID 1,000 MG/10 ML VIAL ONE (07:00)
[2018-07-20] MEDS ORDERED: PHENYLephrine 20MG IN 250 ML 250 ML IV SCH (07:00)
[2018-07-20] MEDS ORDERED: AMINOCAPROIC ACID 5 GM INJ ONE ×2 (07:00→12:37)
[2018-07-20] MEDS ORDERED: MILRINONE LACTATE 20 MG/D5W 100 ML BAG ONE (07:00)
[2018-07-20] MEDS ORDERED: EPINEPHrine 4 MG in DEXTROSE 5% 246 ML IV SCH (07:00)
[2018-07-20] MEDS ORDERED: DOBUTamine/D5W 1 MG/ML 250 ML DRIP ONE (07:00)
[2018-07-20] MEDS ORDERED: INSULIN HUMAN REGULAR 100 UNIT in SOD CHLORIDE 0.9% 99 ML IV SCH (07:00)
[2018-07-20] MEDS ORDERED: NA BICARBONATE 8.4% 50 ML SYG ONE ×3 (07:00→18:16)
[2018-07-20] MEDS: ACETAMINOPHEN 325 MG TAB PO PRN (07:42)
[2018-07-20] MEDS: INSULIN GLARGINE [LANTus] (100 UNITS/ML) SYG SC SCH (07:50)
[2018-07-20] MEDS: INSULIN ASPART [NOVOLOG] 3 ML PEN SC SCH ×4 (08:00→11:53)
[2018-07-20] MEDS: METOPROLOL 25 MG TAB PO SCH ×2 (08:39→21:00)
[2018-07-20] MEDS: GUAIFENESIN LA 600 MG TABSR PO SCH ×2 (08:40→21:00)
[2018-07-20] MEDS: ISOSORBIDE DINITRATE 20 MG TAB PO SCH ×2 (08:40→21:00)
[2018-07-20] MEDS: LISINOPRIL 20 MG TAB PO SCH (08:40)
[2018-07-20] MEDS: ASPIRIN (EC) 81 MG TAB PO SCH (09:00)
[2018-07-20] MEDS: SOD CHLORIDE 0.45% 1,000 ML IV SCH (11:30)
--- NOTE | 2018-07-20 11:38 | PN ---
Date/Time of Note Date/Time of Note DATE: 07/20/18 TIME: 11:38 Objective Vitals Vital Signs Date Temp Pulse Resp B/P (MAP) Pulse Ox O2 O2 Flow FiO2 Time Delivery Rate 07/20/18 98.0 75 18 110/56 97 11:36 (74) 07/19/18 Room Air 04:00 Intake and Output 07/19/18 07/19/18 07/20/18 1515:00 23:00 07:00 IntakeIntake Total 600 ml 550 ml BalanceBalance 600 ml 550 ml Results Result Diagram: 07/20/187 07/20/18446 Medications Medications Current Medications IV Flush (NS 3 ml) 3 ml PER PROTOCOL IV ; Start 07/11/18 at 05:30 Ondansetron HCl (Zofran Inj) 4 mg Q6H PRN IV NAUSEA/VOMITING Last administered on 07/18/18 08:46; Admin Dose 4 MG; Start 07/11/18 at 05:30 Nitroglycerin (Nitroglycerin (Sl Tab) 0.4 Mg) 1 tab Q5M PRN SL .CHEST PAIN; Start 07/11/18 at 05:30 Acetaminophen (Tylenol Tab) 650 mg Q6H PRN PO .PAIN 1-3 OR TEMP Last administered on 07/20/18 07:42; Admin Dose 650 MG; Start 07/11/18 at 05:30 Acetaminophen/ Hydrocodone Bitart ([place] (5/325)) 1 tab Q6H PRN PO .PAIN 4-6 Last administered on 07/12/18 08:15; Admin Dose 1 TAB; Start 07/11/18 at 05:30 Heparin Sodium (Porcine) (Heparin (5000 Units/1ml)) 5,000 unit Q8 SC Last administered on 07/19/18 21:22; Admin Dose 5,000 UNIT; Start 07/11/18 at 06:00; Status Hold Aspirin (Halfprin) 81 mg DAILY PO Last administered on 07/19/18 08:11; Admin Dose 81 MG; Start 07/11/18 at 13:00 Atorvastatin Calcium (Lipitor) 40 mg HS PO Last administered on 07/19/18 21:09; Admin Dose 40 MG; Start 07/11/18 at 21:00 Metoprolol Tartrate (Lopressor) 25 mg BID PO Last administered on 07/20/18 08:39; Admin Dose 25 MG; Start 07/11/18 at 13:00 Lisinopril (Zestril) 20 mg DAILY PO Last administered on 07/20/18 08:40; Admin Dose 20 MG; Start 07/11/18 at 13:00 Diagnostic Test (Pha) (Accu-Chek) 1 ea 02 XX Last administered on 07/20/18at 02:50; Admin Dose 1 EA; Start 07/12/18 at 02:00 Insulin Aspart (Novolog Insulin Pen) NOVOLOG *MODERATE* ALGORITHM WITH MEALS BEDTIME SC Last administered on 07/19/18 21:23; Admin Dose 2 UNIT; Start 07/11/18 at 18:00 Miscellaneous Information 1 ea NOTE XX ; Start 07/11/18 at 13:00 Glucose (Glutose) 15 gm Q15M PRN PO DECREASED GLUCOSE; Start 07/11/18 at 13:00 Glucose (Glutose) 22.5 gm Q15M PRN PO DECREASED GLUCOSE; Start 07/11/18 at 13:00 Dextrose (D50w Syringe) 25 ml Q15M PRN IV DECREASED GLUCOSE; Start 07/11/18 at 13:00 Dextrose (D50w Syringe) 50 ml Q15M PRN IV DECREASED GLUCOSE; Start 07/11/18 at 13:00 Glucagon (Glucagen) 1 mg Q15M PRN IM DECREASED GLUCOSE; Start 07/11/18 at 13:00 Glucose (Glutose) 15 gm Q15M PRN BUCCAL DECREASED GLUCOSE; Start 07/11/18 at 13:00 Pantoprazole (Protonix Tab) 40 mg DAILY@06 PO Last administered on 07/19/18at 05:39; Admin Dose 40 MG; Start 07/11/18 at 15:30 Simethicone (Mylicon) 80 mg QID PRN GTB DISTENSION/GAS/BLOATING Last administered on 07/16/18at 17:28; Admin Dose 80 MG; Start 07/13/18 at 12:30 Morphine Sulfate (morphine) 6 mg Q4H PRN PO SEVERE PAIN LEVEL 7-10; Start 07/14/18 at 22:00 Guaifenesin (Mucinex) 600 mg BID PO Last administered on 07/20/18 08:40; Admin Dose 600 MG; Start 07/15/18 at 10:30 Sodium Chloride (Deep Sea) 2 spray BID PRN NASAL congestion; Start 07/15/18 at 10:30 Insulin Aspart (Novolog Insulin Pen) 12 unit WITH MEALS SC Last administered on 07/19/18at 17:43; Admin Dose 12 UNIT; Start 07/16/18 at 18:00 Insulin Glargine (Lantus) 25 units DAILY@0800 SC Last administered on 07/20/18at 07:50; Admin Dose 25 UNITS; Start 07/17/18 at 08:00 Isosorbide Dinitrate (Isordil) 40 mg BID PO Last administered on 07/20/18at 08:40; Admin Dose 40 MG; Start 07/17/18 at 17:00 Epinephrine 4 mg/ Dextrose 250 ml @ 0 mls/hr INTRA-OP IV ; Start 07/20/18 at 07:00; Stop 07/20/18 at 17:00 Phenylephrine HCl 250 ml @ 0 mls/hr INTRA-OP IV ; Start 07/20/18 at 07:00; Stop 07/20/18 at 17:00 Insulin Human Regular 100 unit/ Sodium Chloride 100 ml @ 0 mls/hr INTRA-OP IV ; Start 07/20/18 at 07:00; Stop 07/20/18 at 17:00 Sodium Chloride 1,000 ml @ 50 mls/hr Q20H IV ; Start 07/20/18 at 11:30 VTE Prophylaxis Risk score (from Ns)>0 risk: 2 SCD applied (from [facility] [place] Yes Lines/Catheters IV Catheter Type: Roa in Place: No Assessment/Plan Hospital Course Subjective No acute complaints Objective Physical exam General: Patient is laying in bed and answers questions appropriately Mentation: Patient is alert and oriented 4, Head: Normocephalic atraumatic Eyes: EOMI, pupils reactive to light Neck: Supple, nontender, midline Respiratory: Clear to auscultation bilaterally Cardiovascular: regular rate, no obvious murmurs Gastrointestinal: non-tender to palpation, bowel sounds heard. Neurological: Moves all extremities spontaneously Skin: No new skin lesions Assessment/Plan 1. CAD with unstable angina - Plans for CABG - Cardiology input appreciated s/p PCI 07/17/18. Recommending continue with CABG given multivessel disease appreciated - CT surgery on board and appreciate consultation - Continue cardiac meds with aspirin, statin, metoprolol, lisinopril - Plavix remains on hold pending intervention 2. Uncontrolled diabetes - A1c at OSH noted to be 12.3 - Diabetic education consultation appreciated - Lantus and Novolog on board and adjustments made for better control - Upon d/c will give Metformin/Jardiance, Basaglar and Novolog- per DM educator recommendation 3. Hypertension - Continue current medications 4. Cough with congestion - Mucinex for relief - Nasal saline PRN 5. Disposition CABG today FREDIS FALLON Jul 20, 2018 11:38
[2018-07-20] MEDS ORDERED: MIDAZOLAM 5 ML ONE ×2 (12:22)
[2018-07-20] MEDS ORDERED: ETOMIDATE 20 MG INJ ONE ×2 (12:22→15:15)
--- NOTE | 2018-07-20 12:25 | HPN ---
Date/Time of Note Date/Time of Note DATE: 07/20/18 TIME: 12:25 Interval H&P Admission Note Pt. seen H&P reviewed: No system changes VANIA LAMB MD Jul 20, 2018 12:25
[2018-07-20] MEDS ORDERED: HEPARIN 1000 UNITS/ML 10 ML INJ ONE ×3 (12:29→12:36)
[2018-07-20] MEDS ORDERED: ALBUMIN HUMAN 25% 200 ML ONE (12:31)
[2018-07-20] MEDS ORDERED: VANCOMYCIN 1 GM INJ ONE (12:32)
[2018-07-20] MEDS ORDERED: NITROGLYCERIN 50 MG/D5W (PMX) 250 ML ONE ×2 (12:32→15:15)
[2018-07-20] MEDS ORDERED: PAPAVERINE 60 MG INJ ONE (12:32)
[2018-07-20] MEDS ORDERED: CA CHLORIDE 10% 10 ML SYRINGE ONE (12:36)
[2018-07-20] MEDS ORDERED: LIDOCAINE 100 MG SYRINGE ONE (12:36)
[2018-07-20] MEDS ORDERED: POTASSIUM CHLORIDE 40 MEQ INJ ONE (12:36)
[2018-07-20] MEDS ORDERED: ALBUMIN HUMAN 25% 100 ML ONE (12:37)
[2018-07-20] MEDS ORDERED: MANNITOL 20% 500 ML ONE (12:37)
[2018-07-20] MEDS ORDERED: PHENYLephrine 10 MG INJ ONE (12:37)
[2018-07-20] MEDS ORDERED: MAGNESIUM SULFATE (MG) 50% 10 ML INJ ONE (12:37)
--- NOTE | 2018-07-20 12:51 | PREAC ---
Date/Time of Note Date/Time of Note DATE: 07/20/18 TIME: 12:50 Anesthesia Eval and Record Evaluation Time Pre-Procedure Interview DATE: 07/20/18 TIME: 12:50 Age 68 Sex male NPO: 8 hrs Preoperative diagnosis acute CAD ischemia Planned procedure CABG Past Medical History Past Medical History: Includes Cardio: HTN, Dyslipidemia, [place], CAD, CABG, Arrythmia, CHF Endo: Diabetes, Other (severely uncontrolled. A1C = 13) Neuro: Peripheral neuropathy Surgery & Anesthesia Issues Significant blood loss Meds Anticoagulation: No Beta Rhianna within 24 hr: No Reason Beta Rhianna not given: Pt. not on B-Rhianna Current Medications IV Flush (NS 3 ml) 3 ml PER PROTOCOL IV ; Start 07/11/18 at 05:30 Ondansetron HCl (Zofran Inj) 4 mg Q6H PRN IV NAUSEA/VOMITING Last administered on 07/18/18 08:46; Admin Dose 4 MG; Start 07/11/18 at 05:30 Nitroglycerin (Nitroglycerin (Sl Tab) 0.4 Mg) 1 tab Q5M PRN SL .CHEST PAIN; Start 07/11/18 at 05:30 Acetaminophen (Tylenol Tab) 650 mg Q6H PRN PO .PAIN 1-3 OR TEMP Last administered on 07/20/18 07:42; Admin Dose 650 MG; Start 07/11/18 at 05:30 Acetaminophen/ Hydrocodone Bitart ([place] (5/325)) 1 tab Q6H PRN PO .PAIN 4-6 Last administered on 07/12/18 08:15; Admin Dose 1 TAB; Start 07/11/18 at 05:30 Heparin Sodium (Porcine) (Heparin (5000 Units/1ml)) 5,000 unit Q8 SC Last administered on 07/19/18 21:22; Admin Dose 5,000 UNIT; Start 07/11/18 at 06:00; Status Hold Aspirin (Halfprin) 81 mg DAILY PO Last administered on 07/19/18 08:11; Admin Dose 81 MG; Start 07/11/18 at 13:00 Atorvastatin Calcium (Lipitor) 40 mg HS PO Last administered on 07/19/18 21:09; Admin Dose 40 MG; Start 07/11/18 at 21:00 Metoprolol Tartrate (Lopressor) 25 mg BID PO Last administered on 07/20/18 08:39; Admin Dose 25 MG; Start 07/11/18 at 13:00 Lisinopril (Zestril) 20 mg DAILY PO Last administered on 07/20/18 08:40; Admin Dose 20 MG; Start 07/11/18 at 13:00 Diagnostic Test (Pha) (Accu-Chek) 1 ea 02 XX Last administered on 07/20/18at 02:50; Admin Dose 1 EA; Start 07/12/18 at 02:00 Insulin Aspart (Novolog Insulin Pen) NOVOLOG *MODERATE* ALGORITHM WITH MEALS BE DTIME SC Last administered on 07/19/18 21:23; Admin Dose 2 UNIT; Start 07/11/18 at 18:00 Miscellaneous Information 1 ea NOTE XX ; Start 07/11/18 at 13:00 Glucose (Glutose) 15 gm Q15M PRN PO DECREASED GLUCOSE; Start 07/11/18 at 13:00 Glucose (Glutose) 22.5 gm Q15M PRN PO DECREASED GLUCOSE; Start 07/11/18 at 13:00 Dextrose (D50w Syringe) 25 ml Q15M PRN IV DECREASED GLUCOSE; Start 07/11/18 at 13:00 Dextrose (D50w Syringe) 50 ml Q15M PRN IV DECREASED GLUCOSE; Start 07/11/18 at 13:00 Glucagon (Glucagen) 1 mg Q15M PRN IM DECREASED GLUCOSE; Start 07/11/18 at 13:00 Glucose (Glutose) 15 gm Q15M PRN BUCCAL DECREASED GLUCOSE; Start 07/11/18 at 13:00 Pantoprazole (Protonix Tab) 40 mg DAILY@06 PO Last administered on 07/19/18at 05:39; Admin Dose 40 MG; Start 07/11/18 at 15:30 Simethicone (Mylicon) 80 mg QID PRN GTB DISTENSION/GAS/BLOATING Last administered on 07/16/18at 17:28; Admin Dose 80 MG; Start 07/13/18 at 12:30 Morphine Sulfate (morphine) 6 mg Q4H PRN PO SEVERE PAIN LEVEL 7-10; Start 07/14/18 at 22:00 Guaifenesin (Mucinex) 600 mg BID PO Last administered on 07/20/18 08:40; Admin Dose 600 MG; Start 07/15/18 at 10:30 Sodium Chloride (Deep Sea) 2 spray BID PRN NASAL congestion; Start 07/15/18 at 10:30 Insulin Aspart (Novolog Insulin Pen) 12 unit WITH MEALS SC Last administered on 07/19/18at 17:43; Admin Dose 12 UNIT; Start 07/16/18 at 18:00 Insulin Glargine (Lantus) 25 units DAILY@0800 SC Last administered on 07/20/18at 07:50; Admin Dose 25 UNITS; Start 07/17/18 at 08:00 Isosorbide Dinitrate (Isordil) 40 mg BID PO Last administered on 07/20/18at 08:40; Admin Dose 40 MG; Start 07/17/18 at 17:00 Epinephrine 4 mg/ Dextrose 250 ml @ 0 mls/hr INTRA-OP IV ; Start 07/20/18 at 07:00; Stop 07/20/18 at 17:00 Phenylephrine HCl 250 ml @ 0 mls/hr INTRA-OP IV ; Start 07/20/18 at 07:00; Stop 07/20/18 at 17:00 Insulin Human Regular 100 unit/ Sodium Chloride 100 ml @ 0 mls/hr INTRA-OP IV ; Start 07/20/18 at 07:00; Stop 07/20/18 at 17:00 Sodium Chloride 1,000 ml @ 50 mls/hr Q20H IV ; Start 07/20/18 at 11:30 Norepinephrine 250 ml @ 0 mls/hr INTRAOP ONCE IV ; Start 07/20/18 at 13:00; Stop 07/20/18 at 13:01 Meds reviewed: Yes Allergies Coded Allergies: No Known Allergy (Unverified , 07/20/18) Allergies Reviewed: Yes Labs/Studies Labs Reviewed: Reviewed by anesthesiologist Result Diagram: 07/20/187 07/20/18446 Laboratory Tests 07/20/18 04:47 Blood Bank Test 07/19/18 14:15 Antibody Screen NEGATIVE Blood Product Summary Counts Blood Type O POSITIVE Crossmatch Red Blood Cells test: N/A Studies: ECG, CXR, 2D Echo Pre-procedure Exam Last vitals Vital Signs Date Temp Pulse Resp B/P (MAP) Pulse Ox O2 O2 Flow FiO2 Time Delivery Rate 07/20/18 98.0 75 18 110/56 97 11:36 (74) 07/19/18 Room Air 04:00 Airway: Adequate mouth opening, Adequate thyromental dist Mallampati: Mallampati III Teeth: Normal Lung: Normal Heart: Normal ASA Physical Status ASA physical status: 4 Emergency: None Planned Anesthetic General/MAC: ETT Planned Pain Management Parenteral pain med, Local by surgeon Pre-operative Attestations Prior to commencing anesthesia and surgery, the patient was re-evaluated, there was verification of: *The patient's identity *The results of appropriate recent lab work and preoperative vital signs *The above evaluation not changing prior to induction *Anesthetic plan, risk benefits, alternative and complications discussed with patient/family; questions answered; patient/family understands, accepts and wishes to proceed. FARRUKH CHINCHILLA MD Jul 20, 2018 12:51
[2018-07-20] MEDS ORDERED: MEPERIDINE 25 MG INJ IV PRN (13:00)
[2018-07-20] MEDS ORDERED: HYDROmorphONE 0.5 MG/0.5 ML SYG IV PRN ×3 (13:00)
[2018-07-20] MEDS ORDERED: morphine 10 MG INJ IV PRN (13:00)
[2018-07-20] MEDS ORDERED: LABETALOL HCL 20MG INJ IV PRN (13:00)
[2018-07-20] MEDS ORDERED: NORepinephrine 8MG/250 ML (PMX 250 ML IV ONE (13:00)
[2018-07-20] MEDS ORDERED: morphine 2 MG INJ IV PRN ×2 (13:00)
[2018-07-20] MEDS ORDERED: LEVALBUTEROL (NEB) 1.25 MG/0.5 ML AMP HHN PRN (13:00)
[2018-07-20] MEDS ORDERED: ONDANSETRON 4 MG INJ IV PRN (13:00)
[2018-07-20] MEDS ORDERED: MIDAZOLAM 1 MG/ML 2 ML INJ IV PRN (13:00)
[2018-07-20] MEDS ORDERED: DIPHENHYDRAMINE 50 MG INJ IV PRN (13:00)
[2018-07-20] MEDS ORDERED: hydrALAzine 20 MG INJ IV PRN (13:00)
[2018-07-20] MEDS ORDERED: ALBUMIN HUMAN 5% 250 ML IV PRN (13:00)
[2018-07-20] MEDS ORDERED: LEVALBUTEROL (NEB) 0.63 MG/3 ML AMP HHN PRN (13:00)
[2018-07-20] MEDS ORDERED: FENTAnyl 50 MCG/ML VIAL IV PRN ×2 (13:00)
[2018-07-20] MEDS ORDERED: LORAZEPAM 2 MG INJ IV PRN (13:00)
[2018-07-20] MEDS ORDERED: CEFAZOLIN 1 GM INJ ONE (14:16)
[2018-07-20] MEDS ORDERED: niCARdipine-NS 0.1MG/ML DRIP 200 ML IV STA (14:24)
[2018-07-20] MEDS ORDERED: niCARdipine 25 MG in SOD CHLORIDE 0.9% 240 ML IV SCH (15:00)
[2018-07-20] MEDS ORDERED: PROPOFOL 20 ML ONE (15:15)
[2018-07-20] MEDS ORDERED: ROCURONIUM 50 MG INJ ONE (15:15)
[2018-07-20] MEDS ORDERED: PROPOFOL 100 ML ONE (15:15)
[2018-07-20] MEDS ORDERED: DOPamine-D5W 1.6 MG/ML 250 ML ONE (15:29)
[2018-07-20] MEDS ORDERED: PROTAMINE 250 MG INJ ONE ×2 (17:13→18:13)
[2018-07-20] MEDS ORDERED: FUROSEMIDE 20 MG INJ ONE ×2 (17:20→17:54)
[2018-07-20] MEDS ORDERED: MIDAZOLAM 1 MG/ML 2 ML INJ ONE (17:22)
[2018-07-20] MEDS ORDERED: morphine 10 MG INJ ONE (19:19)
--- NOTE | 2018-07-20 19:51 | PAC ---
Date/Time of Note Date/Time of Note DATE: 07/20/18 TIME: 19:50 Post-Anesthesia Notes Post-Anesthesia Note Last documented vital signs Vital Signs Date Temp Pulse Resp B/P (MAP) Pulse Ox O2 O2 Flow FiO2 Time Delivery Rate 07/20/18 98.0 19:32 07/20/18 75 18 110/56 97 11:36 (74) 07/19/18 Room Air 04:00 Activity: Other (intubated/sedated per plan) Respiratory function: Other (intubated/sedated per plan) Cardiovascular function: WNL Mental status: Other (intubated/sedated per plan) Pain reasonably controlled: Yes Hydration appropriate: Yes Nausea/Vomiting absent: Yes FARRUKH CHINCHILLA MD Jul 20, 2018 19:51
[2018-07-20] MEDS ORDERED: MILRINONE LACTATE 100 ML IV SCH (20:00)
[2018-07-20] MEDS ORDERED: PROPOFOL 100 ML IV PRN (20:00)
--- NOTE | 2018-07-20 20:16 | CONS ---
Consult Date/Type/Reason Admit Date/Time Jul 11, 2018 at 04:15 Initial Consult Date 07/17/18 Type of Consultation: cv Requesting Provider: VANAI LAMB MD Date/Time of Note DATE: 07/20/18 TIME: 20:12 Subjective Interventional cardiology follow-up progress note/critical care note Subjective: Discussed with the staff and physicians. Patient status post coronary artery bypass graft 07/20/2018. Patient on multiple pressors. Objective: General: This was intubation on the vent HEENT: NC/AT. pupils are equal. round. NECK: . no stridor. Chest: Status post sternotomy, status post chest tube placed CV: RRR. systolic murmur; no gallop or rubs. PULM: no wheezing or rhonchi. GI: SOFT, NT, ND, no rebound or guarding Extremity: trace B/L LE edema. no clubbing. neuro: Sedated Psych: calm and pleasant rectal: deferred : normal Echocardiogram done 07/11/2018 which was personally reviewed shows: Normal left ventricular systolic function. Normal left ventricular cavity size. Sigmoid septum. Ejection fraction is visually estimated at 55 %. Tissue Doppler/Mitral Doppler indices are consistent with impaired relaxation (Stage I diastolic dysfunction). Mild mitral leaflet calcification. Mild mitral annular calcification. Trace mitral regurgitation. No significant aortic stenosis or insufficiency. Aortic cusps appear mildly calcified. Normal appearance of the tricuspid valve. Estimated peak PA systolic pressure 26 mmHg. There is trace tricuspid regurgitation. Objective Vitals Vital Signs Date Temp Pulse Resp B/P (MAP) Pulse Ox O2 O2 Flow FiO2 Time Delivery Rate 07/20/18 98.0 19:32 07/20/18 75 18 110/56 97 11:36 (74) 07/19/18 Room Air 04:00 Intake and Output 07/19/18 07/19/18 07/20/18 1515:00 23:00 07:00 IntakeIntake Total 600 ml 550 ml BalanceBalance 600 ml 550 ml Results/Medications Result Diagram: 07/20/18 0447 07/20/18 0447 Results 24 hrs Laboratory Tests Test 07/19/18 21:12 07/20/18 02:26 07/20/18 04:47 07/20/18 07:44 Bedside Glucose 247 H 293 H 312 H White Blood Count 11.8 H Red Blood Count 3.41 L Hemoglobin 10.0 L Hematocrit 29.3 L Mean Corpuscular 85.9 Volume Mean Corpuscular 29.3 Hemoglobin Mean Corpuscular 34.1 Hemoglobin Concent Red Cell 11.5 Distribution Width Platelet Count 183 Mean Platelet Volume 10.0 Immature 0.500 H Granulocytes % Neutrophils % 74.1 Lymphocytes % 15.7 Monocytes % 8.3 Eosinophils % 1.1 Basophils % 0.3 Nucleated Red Blood 0.0 Cells % Immature 0.060 H Granulocytes # Neutrophils # 8.7 H Lymphocytes # 1.9 Monocytes # 1.0 H Eosinophils # 0.1 Basophils # 0.0 Nucleated Red Blood 0.0 Cells # Sodium Level 135 Potassium Level 4.7 Chloride Level 103 Carbon Dioxide Level 24 Anion Gap 8 Blood Urea Nitrogen 18 Creatinine 1.08 Glucose Level 329 H Calcium Level 9.1 Phosphorus Level 3.1 Magnesium Level 1.7 Albumin 3.2 L Test 07/20/18 08:46 07/20/18 11:49 07/20/18 19:29 Bedside Glucose 313 H 295 H 228 H Medications Current Medications IV Flush (NS 3 ml) 3 ml PER PROTOCOL IV ; Start 07/11/18 at 05:30 Ondansetron HCl (Zofran Inj) 4 mg Q6H PRN IV NAUSEA/VOMITING Last administered on 07/18/18 08:46; Admin Dose 4 MG; Start 07/11/18 at 05:30 Nitroglycerin (Nitroglycerin (Sl Tab) 0.4 Mg) 1 tab Q5M PRN SL .CHEST PAIN; Start 07/11/18 at 05:30 Acetaminophen (Tylenol Tab) 650 mg Q6H PRN PO .PAIN 1-3 OR TEMP Last administered on 07/20/18 07:42; Admin Dose 650 MG; Start 07/11/18 at 05:30 Acetaminophen/ Hydrocodone Bitart ([place] (5/325)) 1 tab Q6H PRN PO .PAIN 4-6 Last administered on 07/12/18 08:15; Admin Dose 1 TAB; Start 07/11/18 at 05:30 Heparin Sodium (Porcine) (Heparin (5000 Units/1ml)) 5,000 unit Q8 SC Last administered on 07/19/18 21:22; Admin Dose 5,000 UNIT; Start 07/11/18 at 06:00; Status Hold Aspirin (Halfprin) 81 mg DAILY PO Last administered on 07/19/18at 08:11; Admin Dose 81 MG; Start 07/11/18 at 13:00 Atorvastatin Calcium (Lipitor) 40 mg HS PO Last administered on 07/19/18at 21:09; Admin Dose 40 MG; Start 07/11/18 at 21:00 Metoprolol Tartrate (Lopressor) 25 mg BID PO Last administered on 07/20/18 08:39; Admin Dose 25 MG; Start 07/11/18 at 13:00 Lisinopril (Zestril) 20 mg DAILY PO Last administered on 07/20/18 08:40; Admin Dose 20 MG; Start 07/11/18 at 13:00 Diagnostic Test (Pha) (Accu-Chek) 1 ea 02 XX Last administered on 07/20/18at 02:50; Admin Dose 1 EA; Start 07/12/18 at 02:00 Insulin Aspart (Novolog Insulin Pen) NOVOLOG *MODERATE* ALGORITHM WITH MEALS B EDTIME SC Last administered on 07/19/18at 21:23; Admin Dose 2 UNIT; Start 07/11/18 at 18:00 Miscellaneous Information 1 ea NOTE XX ; Start 07/11/18 at 13:00 Glucose (Glutose) 15 gm Q15M PRN PO DECREASED GLUCOSE; Start 07/11/18 at 13:00 Glucose (Glutose) 22.5 gm Q15M PRN PO DECREASED GLUCOSE; Start 07/11/18 at 13:00 Dextrose (D50w Syringe) 25 ml Q15M PRN IV DECREASED GLUCOSE; Start 07/11/18 at 13:00 Dextrose (D50w Syringe) 50 ml Q15M PRN IV DECREASED GLUCOSE; Start 07/11/18 at 13:00 Glucagon (Glucagen) 1 mg Q15M PRN IM DECREASED GLUCOSE; Start 07/11/18 at 13:00 Glucose (Glutose) 15 gm Q15M PRN BUCCAL DECREASED GLUCOSE; Start 07/11/18 at 13:00 Pantoprazole (Protonix Tab) 40 mg DAILY@06 PO Last administered on 07/19/18at 05:39; Admin Dose 40 MG; Start 07/11/18 at 15:30 Simethicone (Mylicon) 80 mg QID PRN GTB DISTENSION/GAS/BLOATING Last administered on 07/16/18 17:28; Admin Dose 80 MG; Start 07/13/18 at 12:30 Morphine Sulfate (morphine) 6 mg Q4H PRN PO SEVERE PAIN LEVEL 7-10; Start 07/14/18 at 22:00 Guaifenesin (Mucinex) 600 mg BID PO Last administered on 07/20/18 08:40; Admin Dose 600 MG; Start 07/15/18 at 10:30 Sodium Chloride (Deep Sea) 2 spray BID PRN NASAL congestion; Start 07/15/18 at 10:30 Insulin Aspart (Novolog Insulin Pen) 12 unit WITH MEALS SC Last administered on 07/19/18 17:43; Admin Dose 12 UNIT; Start 07/16/18 at 18:00 Insulin Glargine (Lantus) 25 units DAILY@0800 SC Last administered on 07/20/18 07:50; Admin Dose 25 UNITS; Start 07/17/18 at 08:00 Isosorbide Dinitrate (Isordil) 40 mg BID PO Last administered on 07/20/18 08:40; Admin Dose 40 MG; Start 07/17/18 at 17:00 Sodium Chloride 1,000 ml @ 50 mls/hr Q20H IV ; Start 07/20/18 at 11:30 Assessment/Plan Hospital Course (Demo Recall) 1. Unstable angina 2. Multivessel coronary artery disease 3. 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 Diabetes 5. History of hypertension 6. Anemia 7. Postop respiratory failure currently intubated Recommendations: Respiratory care will be continued managed as per CT surgery for now Continue with insulin drip for now Multiple pressure will be continued and titrated down as tolerated/needed Chest tube management as per CT surgery We will closely monitor in the intensive care unit More than 32 minutes of critical care time was for management treatment of this patient excluding procedure Thank you for his referral. We will continue to follow along with you. SEAN NOGUERA MD [facility] SEAN NOGUERA MD Jul 20, 2018 20:16
[2018-07-20] MEDS: ATORVASTATIN 40 MG TAB PO SCH (21:00)
[2018-07-20] MEDS ORDERED: PROPOFOL 100 ML IV SCH (21:00)
[2018-07-20] MEDS ORDERED: DEXTROSE 50% 50 ML SYRINGE IV PRN ×2 (21:00)
[2018-07-20] MEDS ORDERED: niCARdipine-NS 0.1MG/ML DRIP 200 ML IV PRN (21:00)
[2018-07-20] MEDS ORDERED: MILRINONE 20MG in D5W 100 ML IV SCH (21:00)
--- NOTE | 2018-07-20 21:22 | OPR ---
Date/Time of Note Date/Time of Note DATE: 07/20/18 TIME: 21:14 Operative Report Procedure Date: Jul 20, 2018 Preoperative Diagnosis Coronary artery disease Postoperative Diagnosis Same Operation/Procedure Performed Coronary artery bypass grafting 1 GODFREY to LAD 2 SVG to D1 3 SVG to OM 4 Thymectomy Surgeon see signature line Tiler'S Assistant John Carson Anesthesia Type: general Estimated Blood Loss: minimal Transfusion none Specimen None Grafts/Implants none Complications none Pt Condition Post Procedure: critical Disposition: PACU Indications 68-year-old male with a history of diabetes hypertension coronary artery disease undergoing coronary artery bypass grafting risk benefits complications alternative therapies explained to the patient consent obtained Procedure Description Patient was placed supine position prepped and draped in usual sterile fashion timeout was called antibiotics was given Sternotomy incision was made from the sternal notch down to the xiphoid process Saphenous vein was harvested using an open technique from the right lower extremity from the ankle all the way up to the upper leg The sternum was opened in the mid aspect of the sternum Left internal mammary artery was harvested using electrocautery and titanium clips Sternal was opened using the chest retractor Pericardium was open after doing a thymectomy to gain access into the aorta Patient was fully heparinized pericardial cradle was made Dilation sutures all 3-0 Prolene with pledgets were applied to the mid ascending aorta body of the right atrium right atrial appendage After adequate documentation of a CT aorta was cannulated followed by two-stage venous cannula antegrade and retrograde cardioplegia cannula The heart was placed on cardiopulmonary bypass cross-clamp applied the heart arrested using cold potassium based blood based cardioplegia given antegrade and retrograde which was continued every 15-20 minutes throughout the cross-clamp time also cardioplegia given through the graft as they were being constructed and topical slush to the surface of the heart I proceeded with the distal anastomosis the saphenous vein was used in a natural Y fashion for the first diagonal branch of the LAD and also the obtuse marginal branch of the circumflex Mammary artery was anastomosed to the LAD Distal anastomosis were done to 8 mm longitudinal coronary arteriotomy 7-0 Prolene continuous suture technique end-to-side fashion to the beveled end of the vein or the artery The only proximal anastomosis was done on the same cross-clamp 4.5 mm punch end-to-side fashion 6-0 Prolene continuous suture technique The head was placed in steep Trendelenburg position cross-clamp removed the heart and the graft de-aired Heart came off cardia pulmonary bypass with minimal support protamine given cannulas removed sutures tied 2 ventricular pacing wires to chest tubes were brought placed and brought out through lower stab was secured to skin using 2 silk sutures Sternum was closed using a cable system [id number] times Linea alba and the deep tissues were irrigated and closed in 2 layers of #1 Vicryl suture for the linea alba 2-0 Vicryl suture for subcu 4-0 Monocryl suture in a running subcuticular skin closure The leg was closed in a similar fashion Tolerated procedure well VANIA LAMB MD Jul 20, 2018 21:22
[2018-07-20] MEDS: INSULIN HUMAN REGULAR 100 UNIT in SOD CHLORIDE 0.9% 99 ML IV SCH (22:17)
[2018-07-20] MEDS: PROPOFOL 100 ML IV PRN (22:18)
[2018-07-20] MEDS: DOBUTamine/D5W 1 MG/ML DRIP 250 ML IV SCH (22:20)
[2018-07-20] MEDS: NITROGLYCERIN 50 MG/D5W (PMX) 250 ML IV SCH (22:33)
[2018-07-20] MEDS ORDERED: MAGNESIUM SULFATE 1 GM/D5W 100 ML IVPB PRN (23:30)
[2018-07-21] VITALS (107 sets, daily range): BP systolic 77–181; BP diastolic 24–69; PULSE 80–115; RESP 16–40; TEMP 97.8–102.5
[2018-07-21] MEDS: POTASSIUM CHLORIDE 50 ML IVPB PRN ×6 (00:10→13:44)
[2018-07-21] MEDS: ACCU-CHEK XX SCH ×24 (00:26→23:59)
[2018-07-21] MEDS: POTASSIUM CHLORIDE 40 MEQ, CALCIUM CHLORIDE 10% 1 GM in DEXTROSE 5%-0.225% NACL 1,000 ML IV SCH ×2 (00:28→17:06)
[2018-07-21] MEDS ORDERED: morphine 10 MG INJ IV ONE ×2 (00:30)
[2018-07-21] MEDS ORDERED: HYDROmorphONE 0.5 MG/0.5 ML SYG IV PRN ×4 (04:30)
[2018-07-21] MEDS ORDERED: morphine 2 MG INJ IV PRN ×4 (04:30)
[2018-07-21] MEDS ORDERED: MIDAZOLAM 1 MG/ML 2 ML INJ IV PRN (04:30)
[2018-07-21] MEDS ORDERED: ONDANSETRON 4 MG INJ IV PRN (04:30)
[2018-07-21] MEDS ORDERED: OXYCODONE/ACETAMINOPHEN (5/325) TAB PO PRN ×2 (04:30)
[2018-07-21] MEDS: ACETAMINOPHEN 650 MG SUPP PR PRN (04:46)
[2018-07-21] MEDS: DOBUTamine/D5W 1 MG/ML DRIP 250 ML IV SCH ×4 (04:49→22:06)
[2018-07-21] MEDS: CEFAZOLIN 1 GM/50 ML (PMX) 50 ML IVPB SCH ×3 (05:09→22:04)
[2018-07-21] MEDS: PANTOPRAZOLE (EC) 40 MG TAB PO SCH (05:09)
--- NOTE | 2018-07-21 07:05 | CONS ---
Consult Date/Type/Reason Admit Date/Time Jul 11, 2018 at 04:15 Initial Consult Date 07/17/18 Type of Consultation: cv Requesting Provider: VANIA LAMB MD Date/Time of Note DATE: 07/21/18 TIME: 07:03 Subjective Interventional cardiology follow-up progress note/critical care note Subjective: Discussed with the staff and physicians. Patient status post 3 v coronary artery bypass graft 07/20/2018. Patient on milronone and dobutamine now pt is still intubated on vent. . Objective: General: This was intubation on the vent HEENT: NC/AT. pupils are equal. round. NECK: . no stridor. Chest: Status post sternotomy, status post chest tube placed CV: RRR. systolic murmur; no gallop or rubs. PULM: no wheezing or rhonchi. GI: SOFT, NT, ND, no rebound or guarding Extremity: trace B/L LE edema. no clubbing. neuro: Sedated Psych: calm and pleasant rectal: deferred : normal PA pressure 27/7 CVP 5 Echocardiogram done 07/11/2018 which was personally reviewed shows: Normal left ventricular systolic function. Normal left ventricular cavity size. Sigmoid septum. Ejection fraction is visually estimated at 55 %. Tissue Doppler/Mitral Doppler indices are consistent with impaired relaxation (Stage I diastolic dysfunction). Mild mitral leaflet calcification. Mild mitral annular calcification. Trace mitral regurgitation. No significant aortic stenosis or insufficiency. Aortic cusps appear mildly calcified. Normal appearance of the tricuspid valve. Estimated peak PA systolic pressure 26 mmHg. There is trace tricuspid regurgitation. Objective Vitals Vital Signs Date Temp Pulse Resp B/P (MAP) Pulse Ox O2 O2 Flow FiO2 Time Delivery Rate 07/21/18 102.3 05:49 07/21/18 99 16 100 70 05:48 07/21/18 110/42 04:15 (64) 07/20/18 [place] 22:15 l Ventilato r Intake and Output 07/20/18 07/20/18 07/21/18 1515:00 23:00 07:00 IntakeIntake Total 4316 ml 878 ml OutputOutput Total 2578 ml 500 ml BalanceBalance 1738 ml 378 ml Results/Medications Result Diagram: 07/21/18 0456 07/21/18 0456 Results 24 hrs Laboratory Tests Test 07/20/18 07:44 07/20/18 08:46 07/20/18 11:49 07/20/18 19:29 Bedside Glucose 312 H 313 H 295 H 228 H Test 07/20/18 20:13 07/20/18 20:20 07/20/18 20:27 07/20/18 22:58 Blood Gas BLMV Specimen Source Arterial Blood 07/20/2018 8:12:2 Date Drawn 4 PM Arterial Blood pH 7.427 (Temp corrected) Arterial Blood 35.4 pCO2 (Temp correct) Arterial Blood 120.1 H pO2 (Temp corrected) Arterial Blood 22.8 HCO3 Arterial Blood -1.1 Base Excess Arterial Blood 97.8 Oxygen Saturation Tima Test N/A Arterial Blood A-Line Gas Puncture Site Arterial 0.3 Blood Carboxyhemo globin Arterial Blood 0.5 Methemoglobin Mixed Venous 40.6 H Blood PO2 Mixed Venous 81.0 H Blood O2 Saturation Mixed Venous 10.4 Blood Total Hemoglobin Mixed Venous 80.4 Blood Oxyhemoglob in Mixed Venous 0.3 Bld Carboxyhemogl obin Mixed Venous 0.5 Blood Methemoglob in Blood Gas A-a O2 557.5 H Differential Oxyhemoglobin 97.0 Percent Blood Gas 37.0 Temperature Blood Gas 14.0 Respiration Rate Blood Gas Actual 19 Respiration Rate Blood Gas VENT - AC Modality FiO2 100.0 Blood Gas Tidal 500.0 Volume Blood Gas Low 5.0 PEEP Setting Blood Gas 22.0 Inspiratory Pressure Blood Gas Notified Whom Blood Gas 07/20/2018 8:30:5 Notified Time 9 PM White Blood Count 10.1 Red Blood Count 3.29 L Hemoglobin 9.4 L Hematocrit 28.0 L Mean Corpuscular 85.1 Volume Mean Corpuscular 28.6 L Hemoglobin Mean Corpuscular 33.6 Hemoglobin Concen t Red Cell 12.4 Distribution Width Platelet Count 104 L Mean Platelet 9.9 Volume Immature 0.500 H Granulocytes % Neutrophils % 80.3 H Lymphocytes % 12.3 L Monocytes % 6.1 Eosinophils % 0.7 Basophils % 0.1 Nucleated Red 0.0 Blood Cells % Immature 0.050 H Granulocytes # Neutrophils # 8.1 H Lymphocytes # 1.2 Monocytes # 0.6 Eosinophils # 0.1 Basophils # 0.0 Nucleated Red 0.0 Blood Cells # Prothrombin Time 16.6 H Prothrombin Time 1.3 Ratio INR International 1.33 Normalized Ratio Activated 32.4 Partial Thrombopl ast Time Sodium Level 146 H Potassium Level 3.9 Chloride Level 107 Carbon Dioxide 26 Level Anion Gap 13 Blood Urea 16 Nitrogen Creatinine 1.17 Est Glomerular > 60 Filtrat Rate mL/min Glucose Level 211 # Calcium Level 9.9 Magnesium Level 3.6 H Bedside Glucose 214 240 H Test 07/21/18 01:11 07/21/18 02:18 07/21/18 02:49 07/21/18 03:31 Bedside Glucose 246 H 225 H 224 H White Blood Count 9.6 Red Blood Count 3.49 L Hemoglobin 10.1 L Hematocrit 29.7 L Mean Corpuscular 85.1 Volume Mean Corpuscular 28.9 L Hemoglobin Mean Corpuscular 34.0 Hemoglobin Concen t Red Cell 12.9 Distribution Width Platelet Count 147 # Mean Platelet 10.2 Volume Immature 0.400 Granulocytes % Neutrophils % 86.5 H Lymphocytes % 5.6 L Monocytes % 6.6 Eosinophils % 0.7 Basophils % 0.2 Nucleated Red 0.0 Blood Cells % Immature 0.040 H Granulocytes # Neutrophils # 8.3 H Lymphocytes # 0.5 L Monocytes # 0.6 Eosinophils # 0.1 Basophils # 0.0 Nucleated Red 0.0 Blood Cells # Prothrombin Time 14.9 Prothrombin Time 1.2 Ratio INR International 1.16 Normalized Ratio Activated 37.1 H Partial Thrombopl ast Time Sodium Level 146 H Potassium Level 4.6 Chloride Level 111 H Carbon Dioxide 26 Level Anion Gap 9 Blood Urea 15 Nitrogen Creatinine 1.28 H Est Glomerular 56 L Filtrat Rate mL/min Glucose Level 228 H Calcium Level 9.7 Magnesium Level 2.9 H Test 07/21/18 04:53 07/21/18 04:56 07/21/18 05:03 Lab Scanned BLOOD TRANSFUSIO Report N White Blood Count 8.7 Red Blood Count 3.26 L Hemoglobin 9.3 L Hematocrit 28.0 L Mean Corpuscular 85.9 Volume Mean Corpuscular 28.5 L Hemoglobin Mean Corpuscular 33.2 Hemoglobin Concen t Red Cell 12.9 Distribution Width Platelet Count 138 L Mean Platelet 10.4 Volume Immature 0.300 Granulocytes % Neutrophils % 85.4 H Lymphocytes % 6.0 L Monocytes % 7.6 Eosinophils % 0.5 Basophils % 0.2 Nucleated Red 0.0 Blood Cells % Immature 0.030 Granulocytes # Neutrophils # 7.4 Lymphocytes # 0.5 L Monocytes # 0.7 Eosinophils # 0.0 Basophils # 0.0 Nucleated Red 0.0 Blood Cells # Sodium Level 146 H Potassium Level 4.2 Chloride Level 112 H Carbon Dioxide 23 Level Anion Gap 11 Blood Urea 14 Nitrogen Creatinine 1.16 Glucose Level 194 Calcium Level 8.9 Phosphorus Level 1.4 #L Magnesium Level 2.5 Albumin 3.0 L Bedside Glucose 203 Medications Current Medications IV Flush (NS 3 ml) 3 ml PER PROTOCOL IV ; Start 07/11/18 at 05:30 Ondansetron HCl (Zofran Inj) 4 mg Q6H PRN IV NAUSEA/VOMITING Last administered on 07/18/18 08:46; Admin Dose 4 MG; Start 07/11/18 at 05:30 Nitroglycerin (Nitroglycerin (Sl Tab) 0.4 Mg) 1 tab Q5M PRN SL .CHEST PAIN; Start 07/11/18 at 05:30 Acetaminophen (Tylenol Tab) 650 mg Q6H PRN PO .PAIN 1-3 OR TEMP Last administered on 07/20/18 07:42; Admin Dose 650 MG; Start 07/11/18 at 05:30 Acetaminophen/ Hydrocodone Bitart ([place]ma (5/325)) 1 tab Q6H PRN PO .PAIN 4-6 Last administered on 07/12/18 08:15; Admin Dose 1 TAB; Start 07/11/18 at 05:30 Heparin Sodium (Porcine) (Heparin (5000 Units/1ml)) 5,000 unit Q8 SC Last administered on 07/19/18 21:22; Admin Dose 5,000 UNIT; Start 07/11/18 at 06:00; Status Hold Aspirin (Halfprin) 81 mg DAILY PO Last administered on 07/19/18 08:11; Admin Dose 81 MG; Start 07/11/18 at 13:00 Atorvastatin Calcium (Lipitor) 40 mg HS PO Last administered on 07/19/18 21:09; Admin Dose 40 MG; Start 07/11/18 at 21:00 Metoprolol Tartrate (Lopressor) 25 mg BID PO Last administered on 07/20/18 08:39; Admin Dose 25 MG; Start 07/11/18 at 13:00 Lisinopril (Zestril) 20 mg DAILY PO Last administered on 07/20/18 08:40; Admin Dose 20 MG; Start 07/11/18 at 13:00 Pantoprazole (Protonix Tab) 40 mg DAILY@06 PO Last administered on 07/21/18 05:09; Admin Dose 40 MG; Start 07/11/18 at 15:30 Simethicone (Mylicon) 80 mg QID PRN GTB DISTENSION/GAS/BLOATING Last administered on 07/16/18 17:28; Admin Dose 80 MG; Start 07/13/18 at 12:30 Morphine Sulfate (morphine) 6 mg Q4H PRN PO SEVERE PAIN LEVEL 7-10; Start 07/14/18 at 22:00 Guaifenesin (Mucinex) 600 mg BID PO Last administered on 07/20/18 08:40; Admin Dose 600 MG; Start 07/15/18 at 10:30 Sodium Chloride (Deep Sea) 2 spray BID PRN NASAL congestion; Start 07/15/18 at 10:30 Isosorbide Dinitrate (Isordil) 40 mg BID PO Last administered on 07/20/18 08:40; Admin Dose 40 MG; Start 07/17/18 at 17:00 Sodium Chloride 1,000 ml @ 50 mls/hr Q20H IV ; Start 07/20/18 at 11:30 Milrinone Lactate 100 ml @ 6.975 mls/ hr TITRATE IV Last administered on 07/20/18 22:18; Admin Dose 6.975 MLS/HR; Start 07/20/18 at 21:00 Propofol 100 ml @ 1.86 mls/hr Q12H PRN IV AGITATION/ANXIETY Last administered on 07/20/18 22:18; Admin Dose 13.02 MLS/HR; Start 07/20/18 at 21:00 Diagnostic Test (Pha) (Accu-Chek) 1 ea Q1H XX Last administered on 07/21/18 07:01; Admin Dose 1 EA; Start 07/20/18 at 21:00 Insulin Human Regular 100 unit/ Sodium Chloride 100 ml @ 0 mls/hr PER PROTOCOL IV Last administered on 07/20/18 22:17; Admin Dose 8 MLS/HR; Start 07/20/18 at 21:00 Miscellaneous Information (* Miscellaneous Pharmacy Order) Treatment of Hypoglycemia: 1.BG 51... Per protocol XX ; Start 07/20/18 at 21:00 Dextrose (D50w Syringe) 25 ml Q15M PRN IV .DECREASED GLUCOSE; Start 07/20/18 at 21:00 Dextrose (D50w Syringe) 50 ml Q15M PRN IV .DECREASED GLUCOSE; Start 07/20/18 at 21:00 Dobutamine HCl/ Dextrose 250 ml @ 9.3 mls/hr TITRATE IV Last administered on 07/21/18at 04:49; Admin Dose 9.3 MLS/HR; Start 07/20/18 at 21:00 Nicardipine HCl 200 ml @ 50 mls/hr TITRATE PRN IV ANESTHESIA; Start 07/20/18 at 21:00 Nitroglycerin/ Dextrose 250 ml @ 1.5 mls/hr TITRATE IV Last administered on 07/20/18at 22:33; Admin Dose 30 MLS/HR; Start 07/20/18 at 22:30 Potassium Chloride 40 meq/ Calcium Chloride 1 gm/Dextrose/ Sodium Chloride 1,030 ml @ 60 mls/hr [id number] IV Last administered on 07/21/18at 00:28; Admin Dose 60 MLS/HR; Start 07/20/18 at 23:29 Potassium Chloride 50 ml @ 50 mls/hr SEE DIRECTION PRN IVPB K+ LEVEL Last administered on 07/21/18at 01:46; Admin Dose 50 MLS/HR; Start 07/20/18 at 23:30 Magnesium Sulfate/ Dextrose 100 ml @ 100 mls/hr PRN PRN IVPB PENDING LAB VALUE; Start 07/20/18 at 23:30 Cefazolin Sodium 50 ml @ 100 mls/hr Q8 IVPB Last administered on 07/21/18at 05:09; Admin Dose 100 MLS/HR; Start 07/21/18 at 06:00 Hydromorphone HCl (Dilaudid) 0.2 mg Q15M PRN IV PAIN LEVEL 1-5; Start 07/21/18 at 04:30 Hydromorphone HCl (Dilaudid) 0.4 mg Q15M PRN IV PAIN LEVEL 6-10; Start 07/21/18 at 04:30 Hydromorphone HCl (Dilaudid) 0.2 mg Q1H PRN IV PAIN LEVEL 1-5; Start 07/21/18 at 04:30 Hydromorphone HCl (Dilaudid) 0.4 mg Q1H PRN IV PAIN LEVEL 6-10; Start 07/21/18 at 04:30 Oxycodone/ Acetaminophen (Percocet (5/ 325)) 1 tab Q3H PRN PO PAIN LEVEL 1-5; Start 07/21/18 at 04:30 Oxycodone/ Acetaminophen (Percocet (5/ 325)) 2 tab Q3H PRN PO PAIN LEVEL 6-10; Start 07/21/18 at 04:30 Ondansetron HCl (Zofran Inj) 4 mg Q6H PRN IV NAUSEA AND/OR VOMITING; Start 07/21/18 at 04:30 Midazolam HCl (Versed) 2 mg Q2H PRN IV AGITATION; Start 07/21/18 at 04:30 Acetaminophen (Tylenol Supp) 650 mg Q4H PRN [place] MILD PAIN(1-3) OR TEMP>38C Last administered on 07/21/18at 04:46; Admin Dose 650 MG; Start 07/21/18 at 04:30 Morphine Sulfate (morphine) 2 mg Q2 PRN IV PAIN LEVEL 1-5; Start 07/21/18 at 04:30 Morphine Sulfate (morphine) 4 mg Q2 PRN IV PAIN LEVEL 6-10 Last administered on 07/21/18at 04:47; Admin Dose 4 MG; Start 07/21/18 at 04:30 Assessment/Plan Hospital Course (Demo Recall) 1. Unstable angina 2. Multivessel coronary artery disease 3. 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 Diabetes 5. History of hypertension 6. Anemia 7. Postop respiratory failure currently intubated 8. POST OP FEVER Recommendations: Respiratory care will be continued managed as per CT surgery for now. CONSIDER pulm consult as well . weaning as tolerated Continue with insulin drip for now Multiple pressure will be continued and titrated down as tolerated/needed Chest tube management as per CT surgery abx as per ID rec We will closely monitor in the intensive care unit More than 35 minutes of critical care time was for management treatment of this patient excluding procedure Thank you for his referral. We will continue to follow along with you. SEAN NOGUERA MD [facility] SEAN NOGUERA MD Jul 21, 2018 07:05
[2018-07-21] MEDS: SOD CHLORIDE 0.45% 1,000 ML IV SCH (07:29)
[2018-07-21] MEDS ORDERED: ALBUMIN HUMAN 25% 100 ML ONE (07:41)
[2018-07-21] MEDS ORDERED: ALBUMIN HUMAN 5% 250 ML ONE (07:43)
[2018-07-21] MEDS: ALBUMIN HUMAN 5% 250 ML IV PRN (07:49)
[2018-07-21] MEDS: GUAIFENESIN LA 600 MG TABSR PO SCH ×2 (08:36→21:00)
[2018-07-21] MEDS: LISINOPRIL 20 MG TAB PO SCH (08:36)
[2018-07-21] MEDS: METOPROLOL 25 MG TAB PO SCH ×2 (08:36→21:00)
[2018-07-21] MEDS: ISOSORBIDE DINITRATE 20 MG TAB PO SCH ×2 (08:36→21:00)
[2018-07-21] MEDS: ACETAMINOPHEN 650MG/20.3ML CUP NGT PRN (08:48)
[2018-07-21] MEDS: ASPIRIN (EC) 81 MG TAB PO SCH (09:00)
[2018-07-21] MEDS: INSULIN HUMAN REGULAR 100 UNIT in SOD CHLORIDE 0.9% 99 ML IV SCH ×2 (09:18→22:08)
[2018-07-21] MEDS ORDERED: POTASSIUM PHOSPHATE 15 MM in SOD CHLORIDE 0.9% 250 ML IVPB ONE (10:00)
--- NOTE | 2018-07-21 10:13 | PN ---
Date/Time of Note Date/Time of Note DATE: 07/21/18 TIME: 10:09 Objective Vitals Vital Signs Date Temp Pulse Resp B/P (MAP) Pulse Ox O2 O2 Flow FiO2 Time Delivery Rate 07/21/18 40 09:25 07/21/18 92 18 107/42 97 09:15 (63) 07/21/18 102.5 09:00 07/20/18 [place] 22:15 l Ventilato r Intake and Output 07/20/18 07/20/18 07/21/18 1515:00 23:00 07:00 IntakeIntake Total 4316 ml 950.30 ml OutputOutput Total 2578 ml 500 ml BalanceBalance 1738 ml 450.30 ml Results Result Diagram: 07/21/18 0456 07/21/18 0456 Medications Medications Current Medications IV Flush (NS 3 ml) 3 ml PER PROTOCOL IV ; Start 07/11/18 at 05:30 Ondansetron HCl (Zofran Inj) 4 mg Q6H PRN IV NAUSEA/VOMITING Last administered on 07/18/18 08:46; Admin Dose 4 MG; Start 07/11/18 at 05:30 Nitroglycerin (Nitroglycerin (Sl Tab) 0.4 Mg) 1 tab Q5M PRN SL .CHEST PAIN; Start 07/11/18 at 05:30 Acetaminophen (Tylenol Tab) 650 mg Q6H PRN PO .PAIN 1-3 OR TEMP Last administered on 07/20/18 07:42; Admin Dose 650 MG; Start 07/11/18 at 05:30 Acetaminophen/ Hydrocodone Bitart ([place] (5/325)) 1 tab Q6H PRN PO .PAIN 4-6 Last administered on 07/12/18 08:15; Admin Dose 1 TAB; Start 07/11/18 at 05:30 Heparin Sodium (Porcine) (Heparin (5000 Units/1ml)) 5,000 unit Q8 SC Last administered on 07/19/18 21:22; Admin Dose 5,000 UNIT; Start 07/11/18 at 06:00; Status Hold Aspirin (Halfprin) 81 mg DAILY PO Last administered on 07/19/18 08:11; Admin Dose 81 MG; Start 07/11/18 at 13:00 Atorvastatin Calcium (Lipitor) 40 mg HS PO Last administered on 07/19/18 21:09; Admin Dose 40 MG; Start 07/11/18 at 21:00 Metoprolol Tartrate (Lopressor) 25 mg BID PO Last administered on 07/20/18 08:39; Admin Dose 25 MG; Start 07/11/18 at 13:00 Lisinopril (Zestril) 20 mg DAILY PO Last administered on 07/20/18 08:40; Admin Dose 20 MG; Start 07/11/18 at 13:00 Pantoprazole (Protonix Tab) 40 mg DAILY@06 PO Last administered on 07/21/18 05:09; Admin Dose 40 MG; Start 07/11/18 at 15:30 Simethicone (Mylicon) 80 mg QID PRN GTB DISTENSION/GAS/BLOATING Last administered on 07/16/18 17:28; Admin Dose 80 MG; Start 07/13/18 at 12:30 Morphine Sulfate (morphine) 6 mg Q4H PRN PO SEVERE PAIN LEVEL 7-10; Start 07/14/18 at 22:00 Guaifenesin (Mucinex) 600 mg BID PO Last administered on 07/20/18 08:40; Admin Dose 600 MG; Start 07/15/18 at 10:30 Sodium Chloride (Deep Sea) 2 spray BID PRN NASAL congestion; Start 07/15/18 at 10:30 Isosorbide Dinitrate (Isordil) 40 mg BID PO Last administered on 07/20/18 08:40; Admin Dose 40 MG; Start 07/17/18 at 17:00 Sodium Chloride 1,000 ml @ 50 mls/hr Q20H IV ; Start 07/20/18 at 11:30 Milrinone Lactate 100 ml @ 6.975 mls/ hr TITRATE IV Last administered on 07/20/18 22:18; Admin Dose 6.975 MLS/HR; Start 07/20/18 at 21:00 Propofol 100 ml @ 1.86 mls/hr Q12H PRN IV AGITATION/ANXIETY Last administered on 07/20/18 22:18; Admin Dose 13.02 MLS/HR; Start 07/20/18 at 21:00 Diagnostic Test (Pha) (Accu-Chek) 1 ea Q1H XX Last administered on 07/21/18 09:11; Admin Dose 1 EA; Start 07/20/18 at 21:00 Insulin Human Regular 100 unit/ Sodium Chloride 100 ml @ 0 mls/hr PER PROTOCOL IV Last administered on 07/21/18at 09:18; Admin Dose 9 MLS/HR; Start 07/20/18 at 21:00 Miscellaneous Information (* Miscellaneous Pharmacy Order) Treatment of Hypoglycemia: 1.BG 51... Per protocol XX ; Start 07/20/18 at 21:00 Dextrose (D50w Syringe) 25 ml Q15M PRN IV .DECREASED GLUCOSE; Start 07/20/18 at 21:00 Dextrose (D50w Syringe) 50 ml Q15M PRN IV .DECREASED GLUCOSE; Start 07/20/18 at 21:00 Dobutamine HCl/ Dextrose 250 ml @ 9.3 mls/hr TITRATE IV Last administered on 07/21/18at 04:49; Admin Dose 9.3 MLS/HR; Start 07/20/18 at 21:00 Nicardipine HCl 200 ml @ 50 mls/hr TITRATE PRN IV ANESTHESIA; Start 07/20/18 at 21:00 Nitroglycerin/ Dextrose 250 ml @ 1.5 mls/hr TITRATE IV Last administered on at 22:33; Admin Dose 30 MLS/HR; Start 07/20/18 at 22:30 Potassium Chloride 40 meq/ Calcium Chloride 1 gm/Dextrose/ Sodium Chloride 1,030 ml @ 60 mls/hr [id number] IV Last administered on 07/21/18at 00:28; Admin Dose 60 MLS/HR; Start 07/20/18 at 23:29 Potassium Chloride 50 ml @ 50 mls/hr SEE DIRECTION PRN IVPB K+ LEVEL Last administered on 07/21/18at 08:35; Admin Dose 50 MLS/HR; Start 07/20/18 at 23:30 Magnesium Sulfate/ Dextrose 100 ml @ 100 mls/hr PRN PRN IVPB PENDING LAB VALUE; Start 07/20/18 at 23:30 Cefazolin Sodium 50 ml @ 100 mls/hr Q8 IVPB Last administered on 07/21/18at 05:09; Admin Dose 100 MLS/HR; Start 07/21/18 at 06:00 Hydromorphone HCl (Dilaudid) 0.2 mg Q15M PRN IV PAIN LEVEL 1-5; Start 07/21/18 at 04:30 Hydromorphone HCl (Dilaudid) 0.4 mg Q15M PRN IV PAIN LEVEL 6-10; Start 07/21/18 at 04:30 Hydromorphone HCl (Dilaudid) 0.2 mg Q1H PRN IV PAIN LEVEL 1-5; Start 07/21/18 at 04:30 Hydromorphone HCl (Dilaudid) 0.4 mg Q1H PRN IV PAIN LEVEL 6-10; Start 07/21/18 at 04:30 Oxycodone/ Acetaminophen (Percocet (5/ 325)) 1 tab Q3H PRN PO PAIN LEVEL 1-5; Start 07/21/18 at 04:30 Oxycodone/ Acetaminophen (Percocet (5/ 325)) 2 tab Q3H PRN PO PAIN LEVEL 6-10; Start 07/21/18 at 04:30 Ondansetron HCl (Zofran Inj) 4 mg Q6H PRN IV NAUSEA AND/OR VOMITING; Start 07/21/18 at 04:30 Midazolam HCl (Versed) 2 mg Q2H PRN IV AGITATION; Start 07/21/18 at 04:30 Acetaminophen (Tylenol Supp) 650 mg Q4H PRN [place] MILD PAIN(1-3) OR TEMP>38C Last administered on 07/21/18at 04:46; Admin Dose 650 MG; Start 07/21/18 at 04:30 Morphine Sulfate (morphine) 2 mg Q2 PRN IV PAIN LEVEL 1-5; Start 07/21/18 at 04:30 Morphine Sulfate (morphine) 4 mg Q2 PRN IV PAIN LEVEL 6-10 Last administered on 07/21/18at 04:47; Admin Dose 4 MG; Start 07/21/18 at 04:30 Albumin Human 250 ml @ 500 mls/hr PRN PRN IV CVP< 8, OR SBP<90 Last administered on 07/21/18at 07:49; Admin Dose 500 MLS/HR; Start 07/21/18 at 08:00 Acetaminophen (Tylenol Liquid) 650 mg Q6 PRN N[place] MILD PAIN(1-3)OR ELEVATED TEMP Last administered on 07/21/18at 08:48; Admin Dose 650 MG; Start 07/21/18 at 09:00 Potassium Phosphate 15 mm/ Sodium Chloride 255 ml @ 63.75 mls/ hr ONCE ONCE IVPB ; Start 07/21/18 at 10:00; Stop 07/21/18 at 13:59; Status UNV VTE Prophylaxis Risk score (from Ns)>0 risk: 10 SCD applied (from Ns): No SCD contraindication: other Lines/Catheters IV Catheter Type: Galindo in Place: Yes Cont'd galindo catheter reason: terminal illness/intractable pain Assessment/Plan Hospital Course Subjective intubated still, but arousable Objective Physical exam General: Patient is laying in bed, intubated Mentation: Patient is arousable, but not fully oriented Head: Normocephalic atraumatic Eyes: EOMI, pupils reactive to light Neck: Supple, nontender, midline Respiratory: Clear to auscultation bilaterally Cardiovascular: regular rate, no obvious murmurs Gastrointestinal: non-tender to palpation, bowel sounds heard. Neurological: Moves all extremities spontaneously Skin: surgical site bandaged, CDI, Assessment/Plan CAD with unstable angina s/p 3V CABG 07/20/18 - CT surgery on board and appreciate consultation - Continue cardiac meds with aspirin, statin, metoprolol, lisinopril when able - Plavix and aspirin to restart when ok with cards/CT surgery acute hypoxic resp distress -2/2 to above CABG -titrate off when able hypotension -2/2 CABG -titrate pressors as needed temp -blood cultures done -still start empiric abx Uncontrolled diabetes - A1c at OSH noted to be 12.3 - Diabetic education consultation appreciated - Lantus and Novolog on board and adjustments made for better control - Upon d/c will give Metformin/Jardiance, Basaglar and Novolog- per DM educator recommendation Hypertension - Continue current medications Cough with congestion - Mucinex for relief - Nasal saline PRN Disposition over 40 minutes of critical care time spent on this evaluation -cont ICU stay -pulm to extubate when ready FREDIS FALLON Jul 21, 2018 10:12
[2018-07-21] MEDS ORDERED: PANTOPRAZOLE 40 MG INJ IV ONE (10:48)
[2018-07-21] MEDS: PIPER-TAZO 3.375 GM IV (PMX) 100 ML IVPB SCH ×3 (11:24→23:59)
[2018-07-21] MEDS: ASPIRIN 300 MG SUPP PR SCH (11:24)
[2018-07-21] MEDS ORDERED: SOD CHLORIDE 0.9% 250 ML IV ONE ×2 (12:30→13:00)
[2018-07-21] MEDS ORDERED: POTASSIUM PHOSPHATE 15 MM in SOD CHLORIDE 0.9% 250 ML IVPB SCH (12:30)
--- NOTE | 2018-07-21 12:46 | CONS ---
DATE OF ADMISSION: 07/11/2018 DATE OF CONSULTATION: REASON FOR CONSULTATION: Ventilator management. Thank you, Dr. Olivas, for this consultation. HISTORY OF PRESENT ILLNESS: This is a 68-year-old gentleman with a history of multivessel coronary a rtery disease. Underwent 3-vessel coronary artery bypass graft surgery with GODFREY to LAD, SVG to D1, SVG to OM and thymectomy. Postoperatively, the patient remained on mechanical [facility] Per note, he had a difficult intubation. He was attempted on CPAP weaning trial, however, had d iaphoresis. Therefore, placed back on AC mechanical ventilation. PAST MEDICAL HISTORY: Coronary artery disease, diabetes mellitus, COPD with remote tobacco history a nd an A1c of 12.3. MEDICATIONS: Per chart. ALLERGIES: NONE. SOCIAL HISTORY: Positive tobacco history. REVIEW OF SYSTEMS: A 12-point review of systems currently unable to perform. PHYSICAL EXAMINATION: GENERAL: Well-nourished, well-developed gentleman, comfortable at rest, no acute distress. VITAL SIGNS: Currently afebrile, temperature was 102.1, pulse is 90, blood pressure 120/45, O2 satur ation 96%, FIO2 of 40%, orally intubated. NECK: Supple. No JVD or lymphadenopathy. CARDIAC: Sounds S1, S2. No added sounds or murmurs. CHEST: Diminished air entry bilaterally. ABDOMEN: Soft, nontender. No guarding or rebound. EXTREMITIES: No cyanosis, clubbing, or edema. NEUROLOGIC: Grossly intact. LABORATORY STUDIES: White count 8.7, hemoglobin 9.3, platelets are 138,000. BUN 14, creatinine 1.16 . INR 1.16. DIAGNOSTIC DATA: Chest x-ray was reviewed, showed no significant infiltrates or effusions, bibasilar atelectasis. IMPRESSION AND PLAN: 1. Multivessel coronary artery disease, status post coronary artery bypass graft, postoperative day 1. 2. Prior significant tobacco history, likely underlying chronic obstructive pulmonary disease (COPD) . 3. Diabetes mellitus, poorly controlled, glycemic management prior to surgery. 4. Status post thymectomy. Plans include: 1. Continue assist-control (AC) mechanical ventilation, having failed continuous positive airway pr essure (CPAP) trial this morning. I will repeat continuous positive airway pressure (CPAP) trial thi s afternoon. 2. Continue chest tube and postoperative surgical management, per cardiothoracic surgery. Currently on dobutamine and milrinone 3. May require bronchodilator treatment, incentive spirometry. 4. Pre-extubation cuff leak test to exclude laryngeal edema. 5. Deep venous thrombosis (DVT) and gastrointestinal (GI) prophylaxis. Dictated By: AHMET TAVAREZ MD SV/NTS Conf#: [id number] DID#: [id number] CC: SUZETTE SIMMONS MD;*EndCC*
[2018-07-21] MEDS ORDERED: NORepinephrine 8MG/250 ML (PMX 250 ML IV SCH (13:00)
--- NOTE | 2018-07-21 13:40 | PN ---
Date/Time of Note Date/Time of Note DATE: 07/21/18 TIME: 13:39 Assessment/Plan Lines/Catheters IV Catheter Type (from Nrsg): Roa in Place (from Nrsg): Yes Assessment/Plan Assessment/Plan Status post coronary artery bypass grafting Hemodynamically stable Will wean for extubation To new chest tube suction Subjective 24 Hr Interval Summary Constitutional: improved Pain Control: mild Exam/Review of Systems Vital Signs Vitals Vital Signs Date Temp Pulse Resp B/P (MAP) Pulse Ox O2 O2 Flow FiO2 Time Delivery Rate 07/21/18 90 20 90/36 (54) 97 12:15 07/21/18 100.4 12:00 07/21/18 40 10:15 07/20/18 [place] 22:15 l Ventilato r Intake and Output 07/20/18 07/20/18 07/21/18 1515:00 23:00 07:00 IntakeIntake Total 4316 ml 950.30 ml OutputOutput Total 2578 ml 500 ml BalanceBalance 1738 ml 450.30 ml Exam ENMT: nl external ears & nose, nl lips & teeth, nl nasal mucosa & septum, mucosa pink and moist Neck: supple, non-tender Respiratory: clear to auscultation, normal air movement Cardiovascular: regular rate and rhythm, nl pulses Gastrointestinal: soft, nl liver, spleen, non-tender Musculoskeletal: nl extremities to inspection, nl gait and stance Results Result Diagram: 07/21/18 0456 07/21/18 1150 MALEVANIA RICHARDSON MD Jul 21, 2018 13:40
[2018-07-21] MEDS: FENTAnyl (DRIP) 1000 mcg/100mL 100 ML IV SCH (13:43)
--- NOTE | 2018-07-21 14:01 | CONS ---
DATE OF ADMISSION: 07/11/2018 DATE OF CONSULTATION: 07/21/2018 TYPE OF CONSULTATION: Infectious disease. REASON FOR CONSULTATION: Antibiotic management. HISTORY OF PRESENT ILLNESS: Jose Christine is a 68-year-old male who was admitted on 07/11/2018 with a history of hypertension, uncontrolled insulin-dependent diabetes mellitus and numerous other problem s including history of smoking of 20-pack years, quit 30 years ago. The patient presented to [facility] on 07/06/2018 with atypical chest pain and a negative EKG and troponin and multivessel disease on left heart catheterization. The catheterization showed moderate diffuse disease in the OM , LAD, first diagonal, left circumflex, third OM, LAD with 95% discrete mid vessel stenosis. He was seen by cardiothoracic surgery who recommended coronary artery bypass and was [facility]. The patient denies any chest pain or shortness of breath. Past medical history as note d includes insulin-dependent diabetes mellitus, hypertension and coronary artery disease. HOSPITAL COURSE: The patient was seen by Dr. Olivas who noted evaluation of coronary artery bypas s grafting. The patient had unstable angina. He had an operative procedure performed. He had [facility] evaluation of the left main to PCI as an option and selective left coronary angiogram, right femoral angiogram and closure using a Perclose device, successful intravascular ultrasound of left m ain and proximal left anterior descending artery, moderate sedation for more than 60 minutes. On , he had coronary artery bypass graft to the left internal mammary artery to LAD, SVG to D1, S VG to OM, thymectomy with assistance of Dr. John Carson. Currently, he is a 68-year-old gentleman with multivessel coronary artery disease and underwent 3-vessel coronary artery bypass graft. Now, neptali umana is on mechanical ventilator, had a difficult intubation, was attempted on CPAP and placed back on m echanical ventilation. PAST MEDICAL HISTORY: Coronary artery disease. ANCILLARY LABORATORY DATA: White count 8.7, hemoglobin 9.3, platelet count 238,000. BUN and creatin ine is 14/1.16. He is continuing on his mechanical ventilation. MEDICATIONS: He is currently on: 1. Zosyn. 2. Cefazolin. PHYSICAL EXAMINATION: GENERAL: The patient is lying in bed, intubated. He is arousable, not fully oriented. VITAL SIGNS: Stable. He is afebrile. SKIN: Without generalized rash. Surgical bandages are clean, dry, intact. HEENT: Within normal limits. NECK: Supple. LYMPH NODES: None palpable. CHEST: Decreased breath sounds at the bases. HEART: Without murmur or gallop. ABDOMEN: Soft, nontender without organosplenomegaly or masses. EXTREMITIES: Without cyanosis, clubbing or edema. RECTAL AND GENITAL: Deferred. NEUROLOGIC: No focal neurological abnormalities. IMPRESSION AND PLAN: The patient is stable at the present time. Continue current therapy. Chest x- ray from 07/21/2018 shows tubes and lines in place. He has an ET tube, enteric feeding tube, a right Buckholts-Josiah catheter extending into the pulmonary artery, mediastinal drains. Heart is mildly enlarge d, patchy left basilar atelectasis, small pleural effusion. Lungs are otherwise clear. I will dicta te my findings to the hospitalist and to Dr. Olivas and Dr. Narayan. Dictated By: RAVI TRUJILLO MD, JD/DEYA Conf#: [id number] DID#: [id number] CC: KARINA MADDOX MD; SUZETTE SIMMONS MD; VANIA OLIVAS MD;*End*
[2018-07-21] MEDS: PROPOFOL 100 ML IV PRN (15:55)
--- NOTE | 2018-07-21 16:16 | CONS ---
DATE OF ADMISSION: 07/11/2018 DATE OF CONSULTATION: 07/21/2018 TYPE OF CONSULTATION: Nephrology. REASON FOR CONSULTATION: Hypernatremia. PHYSICIAN REQUESTING CONSULT: Mike Stovall MD HISTORY OF PRESENT ILLNESS: This is a 68-year-old male with a past medical history of coronary arter y disease, history of hypertension, history of diabetes, previous history of smoker, who was initiall y brought into an outside hospital with chest pain. The patient had cardiac catheterization which sh owed diffuse multivessel disease. The patient was seen by CT surgery who recommended the patient be transferred to [facility] to undergo CABG. The patient was seen by cardiothoracic surgery and asked that a CABG be performed by Dr. Olivas on 07/20/2018. Following the procedure, the patient has been intubated on inotropic support. The patient otherwise had no other acute events noted. In terms of patient's renal history, on admission the patient had a creatinine of 0.94 mg/dL. The pa samirant's creatinine is increased to 1.28 mg/dL. During that time, the patient was also noted to be hy pernatremic with sodium level 146 mEq per liter. The patient had good urinary output. There have be en reports of any hemoptysis, hematemesis or hematochezia. PAST MEDICAL HISTORY: History of hypertension, history of diabetes, history of coronary artery disea se. PAST SURGICAL HISTORY: None. ALLERGIES: NO KNOWN DRUG ALLERGIES. FAMILY HISTORY: No family history of kidney disease. SOCIAL HISTORY: Former smoker. MEDICATIONS: Have been reviewed. REVIEW OF SYSTEMS: A 14-point review of systems conducted. Pertinent positives stated in HPI, other ramires negative. PHYSICAL EXAMINATION: VITAL SIGNS: Blood pressure is 138/62, respiration 19, pulse 90, temperature 99.5. HEENT: Head is normocephalic. NECK: Supple. HEART: Regular rate. LUNGS: Show diminished breath sounds at base. ABDOMEN: Soft, nontender to palpation without rebound or guarding. EXTREMITIES: Negative for clubbing, cyanosis, no edema. DERMATOLOGIC: No rashes. MUSCULOSKELETAL: No joint effusion. NEUROLOGIC: No change in exam. LABORATORY DATA: Show sodium 146, potassium 4.3, BUN 14, creatinine 1.16, phosphorus 1.4. White cou nt 8.6, hemoglobin 9.3, platelet count is 138. DIAGNOSTIC DATA: The patient's chest x-ray was reviewed. ASSESSMENT AND PLAN: This is a 68-year-old male who presents with: 1. Nonoliguric kidney injury with previous baseline creatinine of 0.94 mg/dL. Etiology of acute kid sharon injury is secondary to hemodynamics, possible tubular injury status post CABG, shock. The patien t's renal function has improved in the last 24 hours. Urinalysis shows a FENa less than 1% consisten t with possible prerenal etiology that can be seen in shock. Urinalysis does show hyaline cast, prot einuria, pyuria and hematuria. Plan at this point would be to continue current medical management, c ontinue pressor support to maintain MAP of 65. Renally dose all meds, avoid nephrotoxins. We will m onitor closely. 2. Hypernatremia. The patient has free water deficit approximately 2.5 liters. Etiology is likely due to insensible losses in conjunction with possible partial diabetes insipidus. The patient's urin e osmolality was inappropriately low for a level of hypernatremia. This may be secondary to acute ki dney injury and/or recent diuretic therapy. Recommendation at this point is to increase free water f lushes 200 mL q.4 hours. We will monitor serial sodium levels closely. 3. Anemia. Monitor hemoglobin and hematocrit levels. 4. Mineral bone disorder. Monitor calcium and phosphorus levels. 5. Coronary artery disease, status post 3-vessel CABG. Continue medical management. Follow up CT s urgery. 6. Ventilatory dependent respiratory failure. Vent settings and ABG were reviewed. Continue to mon itor. 7. Shock. Etiology is likely cardiogenic secondary to CABG. Continue inotropic support and titrate off needed. 8. Systemic inflammatory response syndrome. Continue medical management. Continue empiric antibiot ics. Follow up with infectious disease. 9. Diabetes. Continue current insulin regimen. 10. History of hypertension. Thank you, Dr. Stovall, for this interesting consult. It will be a pleasure to follow the patient with reshma awan throughout the hospital course. Dictated By: MARCO ANTONIO BARRETT DO NR/NTS Conf#: [id number] DID#: [id number] CC: VANIA OLIVAS MD; KARINA MADDOX MD; SUZETTE SIMMONS MD;*[facility]*
[2018-07-21] MEDS: MIDAZOLAM (DRIP) 50 mg/50 mL 50 ML IV SCH (17:06)
[2018-07-21] MEDS: ATORVASTATIN 40 MG TAB PO SCH (21:00)
[2018-07-22] VITALS (106 sets, daily range): BP systolic 73–167; BP diastolic 40–81; PULSE 73–104; RESP 12–42; TEMP 98.9–100.2
[2018-07-22] MEDS: ACCU-CHEK XX SCH ×24 (01:00→22:55)
[2018-07-22] MEDS: CALCIUM CHLORIDE IV SCH ×2 (04:57→21:41)
[2018-07-22] MEDS: [UNRECOGNIZED DRUG - OTHER] IV SCH ×2 (04:57→21:41)
[2018-07-22] MEDS: POTASSIUM CHLORIDE IV SCH ×2 (04:57→21:41)
[2018-07-22] MEDS: ACETAMINOPHEN 650 MG SUPP PR PRN ×2 (04:57→16:17)
[2018-07-22] MEDS: MIDAZOLAM (DRIP) 50 mg/50 mL 50 ML IV SCH (05:03)
[2018-07-22] MEDS: CEFAZOLIN 1 GM/50 ML (PMX) 50 ML IVPB SCH (05:07)
[2018-07-22] MEDS: PIPER-TAZO 3.375 GM IV (PMX) 100 ML IVPB SCH ×4 (05:08→23:30)
[2018-07-22] MEDS: PANTOPRAZOLE 40 MG INJ IV SCH (05:12)
[2018-07-22] MEDS: FENTAnyl (DRIP) 1000 mcg/100mL 100 ML IV SCH (05:33)
[2018-07-22] MEDS: DOBUTamine/D5W 1 MG/ML DRIP 250 ML IV SCH ×2 (06:51→19:16)
[2018-07-22] MEDS: ISOSORBIDE DINITRATE 20 MG TAB PO SCH ×2 (08:08→20:10)
[2018-07-22] MEDS: GUAIFENESIN LA 600 MG TABSR PO SCH ×2 (08:09→20:10)
[2018-07-22] MEDS: METOPROLOL 25 MG TAB PO SCH ×2 (08:09→20:09)
[2018-07-22] MEDS: LISINOPRIL 20 MG TAB PO SCH (08:09)
--- NOTE | 2018-07-22 08:25 | CONS ---
Consult Date/Type/Reason Admit Date/Time Jul 11, 2018 at 04:15 Initial Consult Date 07/17/18 Type of Consultation: cv Requesting Provider: VANIA LAMB MD Date/Time of Note DATE: 07/22/18 TIME: 08:23 Subjective Interventional cardiology follow-up progress note/critical care note Subjective: Discussed with the staff and physicians. Patient status post 3 v coronary artery bypass graft 07/20/2018. Patient on dobutamine now pt is still intubated on vent. . Objective: General: This was intubation on the vent HEENT: NC/AT. pupils are equal. round. NECK: . no stridor. Chest: Status post sternotomy, status post chest tube placed CV: RRR. systolic murmur; no gallop or rubs. PULM: no wheezing or rhonchi. GI: SOFT, NT, ND, no rebound or guarding Extremity: trace B/L LE edema. no clubbing. neuro: Sedated Psych: calm and pleasant rectal: deferred : normal PA pressure 24/13 CVP 5-8 Echocardiogram done 07/11/2018 which was personally reviewed shows: Normal left ventricular systolic function. Normal left ventricular cavity size. Sigmoid septum. Ejection fraction is visually estimated at 55 %. Tissue Doppler/Mitral Doppler indices are consistent with impaired relaxation (Stage I diastolic dysfunction). Mild mitral leaflet calcification. Mild mitral annular calcification. Trace mitral regurgitation. No significant aortic stenosis or insufficiency. Aortic cusps appear mildly calcified. Normal appearance of the tricuspid valve. Estimated peak PA systolic pressure 26 mmHg. There is trace tricuspid regurgitation. CXR 07/22: Interstitial edema suggesting cardiopulmonary congestion is similar in appearance. Small left pleural effusion is mildly increased. Objective Vitals Vital Signs Date Temp Pulse Resp B/P (MAP) Pulse Ox O2 O2 Flow FiO2 Time Delivery Rate 07/22/18 40 08:00 07/22/18 99.9 06:51 07/22/18 99 18 140/49 99 06:45 (79) 07/20/18 Mechanical 22:15 Ventilator Intake and Output 07/21/18 07/21/18 07/22/18 1414:59 22:59 06:59 IntakeIntake Total 2121.726 ml 1162.975 ml 974 ml OutputOutput Total 249 ml 376 ml 370 ml BalanceBalance 1872.726 ml 786.975 ml 604 ml Results/Medications Result Diagram: 07/22/185 07/22/18 0445 Results 24 hrs Laboratory Tests Test 07/21/18 09:02 07/21/18 09:55 07/21/18 10:45 07/21/18 10:58 Bedside Glucose 192 179 194 Urine Color KILEY Urine Clarity CLOUDY A Urine pH 5.0 Urine Specific 1.024 [place] Urine Ketones NEGATIVE Urine Nitrite NEGATIVE Urine Bilirubin NEGATIVE Urine 1+ H Urobilinogen Urine Leukocyte TRACE A Esterase Urine Microscopic 67 H RBC Urine Microscopic 80 H WBC Urine Squamous FEW Epithelial Cells Urine Bacteria MODERATE Urine Hyaline FEW A Casts Urine Mucus FEW A Urine Hemoglobin 3+ H Urine Osmolality 386 Urine Random 144.56 Creatinine Urine Random 20 L Sodium Urine Glucose NEGATIVE Urine Total 76.0 H Protein Test 07/21/18 11:50 07/21/18 12:56 07/21/18 13:54 07/21/18 14:44 Potassium Level 4.2 Bedside Glucose 202 201 187 178 Test 07/21/18 15:50 07/21/18 16:58 07/21/18 17:49 07/21/18 18:49 Bedside Glucose 187 189 196 181 Test 07/21/18 18:53 07/21/18 19:52 07/21/18 20:55 07/21/18 21:48 White Blood Count 15.2 #H Red Blood Count 3.56 L Hemoglobin 10.2 L Hematocrit 31.1 L Mean Corpuscular 87.4 Volume Mean Corpuscular 28.7 L Hemoglobin Mean Corpuscular 32.8 Hemoglobin Concen t Red Cell 13.3 Distribution Width Platelet Count 148 Mean Platelet 9.9 Volume Immature 0.900 H Granulocytes % Neutrophils % 85.6 H Lymphocytes % 5.7 L Monocytes % 7.4 Eosinophils % 0.1 Basophils % 0.3 Nucleated Red 0.0 Blood Cells % Immature 0.140 H Granulocytes # Neutrophils # 13.1 H Lymphocytes # 0.9 Monocytes # 1.1 H Eosinophils # 0.0 Basophils # 0.0 Nucleated Red 0.0 Blood Cells # Prothrombin Time 16.0 H Prothrombin Time 1.3 Ratio INR International 1.27 Normalized Ratio Activated 33.2 Partial Thrombopl ast Time Platelet 115 Func Collagen/Epi nephrine Platelet Function Collagen/ADP Sodium Level 144 Potassium Level 5.3 H Chloride Level 113 H Carbon Dioxide 24 Level Anion Gap 7 Blood Urea 15 Nitrogen Creatinine 1.49 H Est Glomerular 47 L Filtrat Rate mL/min Glucose Level 190 Calcium Level 9.6 Magnesium Level 2.5 Bedside Glucose 194 187 178 Test 07/21/18 22:50 07/21/18 23:47 07/22/18 01:04 07/22/18 02:35 Bedside Glucose 186 181 168 175 Test 07/22/18 04:09 07/22/18 04:45 07/22/18 06:12 07/22/18 07:00 Bedside Glucose 185 194 White Blood Count 15.1 H Red Blood Count 3.64 L Hemoglobin 10.7 L Hematocrit 31.8 L Mean Corpuscular 87.4 Volume Mean Corpuscular 29.4 Hemoglobin Mean Corpuscular 33.6 Hemoglobin Concen t Red Cell 13.2 Distribution Width Platelet Count 148 Mean Platelet 10.4 Volume Immature 0.700 H Granulocytes % Neutrophils % 86.2 H Lymphocytes % 5.8 L Monocytes % 6.5 Eosinophils % 0.5 Basophils % 0.3 Nucleated Red 0.0 Blood Cells % Immature 0.110 H Granulocytes # Neutrophils # 13.0 H Lymphocytes # 0.9 Monocytes # 1.0 H Eosinophils # 0.1 Basophils # 0.0 Nucleated Red 0.0 Blood Cells # Sodium Level 143 Potassium Level 4.6 Chloride Level 113 H Carbon Dioxide 21 Level Anion Gap 9 Blood Urea 13 Nitrogen Creatinine 1.38 H Est Glomerular 51 L Filtrat Rate mL/min Glucose Level 184 Calcium Level 9.7 Phosphorus Level 3.3 Magnesium Level 2.2 Albumin 3.1 L Blood Gas Blood arterial Specimen Source Arterial Blood 07/22/2018 7:12:2 Date Drawn 1 AM Arterial Blood pH 7.430 (Temp corrected) Arterial Blood 32.2 L pCO2 (Temp correct) Arterial Blood 80.6 pO2 (Temp corrected) Arterial Blood 20.9 L HCO3 Arterial Blood -2.7 Base Excess Arterial Blood 95.0 Oxygen Saturation Tima Test N/A Arterial Blood A-Line Gas Puncture Site Arterial 0.3 Blood Carboxyhemo globin Arterial Blood 0.1 Methemoglobin Blood Gas A-a O2 167.6 H Differential Oxyhemoglobin 94.6 Percent Blood Gas 37.0 Temperature Blood Gas 15.0 Respiration Rate Blood Gas Actual 20 Respiration Rate Blood Gas VENT - AC Modality FiO2 40.0 Blood Gas Tidal 500.0 Volume Blood Gas Low 5.0 PEEP Setting Blood Gas TM Notified Whom Blood Gas 07/22/2018 7:31:5 Notified Time 8 AM Test 07/22/18 08:07 Bedside Glucose 159 Medications Current Medications IV Flush (NS 3 ml) 3 ml PER PROTOCOL IV ; Start 07/11/18 at 05:30 Ondansetron HCl (Zofran Inj) 4 mg Q6H PRN IV NAUSEA/VOMITING Last administered on 07/18/18 08:46; Admin Dose 4 MG; Start 07/11/18 at 05:30 Nitroglycerin (Nitroglycerin (Sl Tab) 0.4 Mg) 1 tab Q5M PRN SL .CHEST PAIN; Start 07/11/18 at 05:30 Acetaminophen (Tylenol Tab) 650 mg Q6H PRN PO .PAIN 1-3 OR TEMP Last administered on 07/20/18 07:42; Admin Dose 650 MG; Start 07/11/18 at 05:30 Acetaminophen/ Hydrocodone Bitart ([place] (5/325)) 1 tab Q6H PRN PO .PAIN 4-6 Last administered on 07/12/18 08:15; Admin Dose 1 TAB; Start 07/11/18 at 05:30 Heparin Sodium (Porcine) (Heparin (5000 Units/1ml)) 5,000 unit Q8 SC Last administered on 07/19/18 21:22; Admin Dose 5,000 UNIT; Start 07/11/18 at 06:00; Status Hold Atorvastatin Calcium (Lipitor) 40 mg HS PO Last administered on 07/19/18 21:09; Admin Dose 40 MG; Start 07/11/18 at 21:00 Metoprolol Tartrate (Lopressor) 25 mg BID PO Last administered on 07/20/18 08:39; Admin Dose 25 MG; Start 07/11/18 at 13:00 Lisinopril (Zestril) 20 mg DAILY PO Last administered on 07/20/18 08:40; Admin Dose 20 MG; Start 07/11/18 at 13:00 Simethicone (Mylicon) 80 mg QID PRN GTB DISTENSION/GAS/BLOATING Last administered on 07/16/18 17:28; Admin Dose 80 MG; Start 07/13/18 at 12:30 Morphine Sulfate (morphine) 6 mg Q4H PRN PO SEVERE PAIN LEVEL 7-10; Start 07/14/18 at 22:00 Guaifenesin (Mucinex) 600 mg BID PO Last administered on 07/20/18 08:40; Admin Dose 600 MG; Start 07/15/18 at 10:30 Sodium Chloride ([place]) 2 spray BID PRN NASAL congestion; Start 07/15/18 at 10:30 Isosorbide Dinitrate (Isordil) 40 mg BID PO Last administered on 07/20/18 08:40; Admin Dose 40 MG; Start 07/17/18 at 17:00 Milrinone Lactate 100 ml @ 6.975 mls/ hr TITRATE IV Last administered on 07/20/18 22:18; Admin Dose 6.975 MLS/HR; Start 07/20/18 at 21:00 Propofol 100 ml @ 1.86 mls/hr Q12H PRN IV AGITATION/ANXIETY Last administered on 07/21/18at 15:55; Admin Dose 3.72 MLS/HR; Start 07/20/18 at 21:00 Diagnostic Test (Pha) (Accu-Chek) 1 ea Q1H XX Last administered on 07/22/18 06:51; Admin Dose 1 EA; Start 07/20/18 at 21:00 Insulin Human Regular 100 unit/ Sodium Chloride 100 ml @ 0 mls/hr PER PROTOCOL IV Last administered on 07/21/18 22:08; Admin Dose 9 MLS/HR; Start 07/20/18 at 21:00 Miscellaneous Information (* Miscellaneous Pharmacy Order) Treatment of Hypoglycemia: 1.BG 51... Per protocol XX ; Start 07/20/18 at 21:00 Dextrose (D50w Syringe) 25 ml Q15M PRN IV .DECREASED GLUCOSE; Start 07/20/18 at 21:00 Dextrose (D50w Syringe) 50 ml Q15M PRN IV .DECREASED GLUCOSE; Start 07/20/18 at 21:00 Dobutamine HCl/ Dextrose 250 ml @ 9.3 mls/hr TITRATE IV Last administered on 07/22/18 06:51; Admin Dose 37.2 MLS/HR; Start 07/20/18 at 21:00 Nicardipine HCl 200 ml @ 50 mls/hr TITRATE PRN IV ANESTHESIA; Start 07/20/18 at 21:00 Nitroglycerin/ Dextrose 250 ml @ 1.5 mls/hr TITRATE IV Last administered on 07/20/18at 22:33; Admin Dose 30 MLS/HR; Start 07/20/18 at 22:30 Potassium Chloride 50 ml @ 50 mls/hr SEE DIRECTION PRN IVPB K+ LEVEL Last administered on 07/21/18at 13:44; Admin Dose 50 MLS/HR; Start 07/20/18 at 23:30 Magnesium Sulfate/ Dextrose 100 ml @ 100 mls/hr PRN PRN IVPB PENDING LAB VALUE; Start 07/20/18 at 23:30 Cefazolin Sodium 50 ml @ 100 mls/hr Q8 IVPB Last administered on 07/22/18at 05:07; Admin Dose 100 MLS/HR; Start 07/21/18 at 06:00 Hydromorphone HCl (Dilaudid) 0.2 mg Q15M PRN IV PAIN LEVEL 1-5; Start 07/21/18 at 04:30 Hydromorphone HCl (Dilaudid) 0.4 mg Q15M PRN IV PAIN LEVEL 6-10; Start 07/21/18 at 04:30 Hydromorphone HCl (Dilaudid) 0.2 mg Q1H PRN IV PAIN LEVEL 1-5; Start 07/21/18 at 04:30 Hydromorphone HCl (Dilaudid) 0.4 mg Q1H PRN IV PAIN LEVEL 6-10; Start 07/21/18 at 04:30 Oxycodone/ Acetaminophen (Percocet (5/ 325)) 1 tab Q3H PRN PO PAIN LEVEL 1-5; Start 07/21/18 at 04:30 Oxycodone/ Acetaminophen (Percocet (5/ 325)) 2 tab Q3H PRN PO PAIN LEVEL 6-10; Start 07/21/18 at 04:30 Midazolam HCl (Versed) 2 mg Q2H PRN IV AGITATION; Start 07/21/18 at 04:30 Acetaminophen (Tylenol Supp) 650 mg Q4H PRN LA MILD PAIN(1-3) OR TEMP>38C Last administered on 07/22/18at 04:57; Admin Dose 650 MG; Start 07/21/18 at 04:30 Morphine Sulfate (morphine) 2 mg Q2 PRN IV PAIN LEVEL 1-5 Last administered on 07/21/18 15:08; Admin Dose 2 MG; Start 07/21/18 at 04:30 Morphine Sulfate (morphine) 4 mg Q2 PRN IV PAIN LEVEL 6-10 Last administered on 07/21/18 04:47; Admin Dose 4 MG; Start 07/21/18 at 04:30 Albumin Human 250 ml @ 500 mls/hr PRN PRN IV CVP< 8, OR SBP<90 Last administered on 07/21/18 07:49; Admin Dose 500 MLS/HR; Start 07/21/18 at 08:00 Acetaminophen (Tylenol Liquid) 650 mg Q6 PRN NGT MILD PAIN(1-3)OR ELEVATED TEMP Last administered on 07/21/18 08:48; Admin Dose 650 MG; Start 07/21/18 at 09:00 Pantoprazole (Protonix Iv) 40 mg DAILY@06 IV Last administered on 07/22/18 05:12; Admin Dose 40 MG; Start 07/22/18 at 06:00 Piperacillin Sod/ Tazobactam Sod 100 ml @ 200 mls/hr Q6 IVPB Last administered on 07/22/18 05:08; Admin Dose 200 MLS/HR; Start 07/21/18 at 12:00 Aspirin (Aspirin) 300 mg DAILY LA Last administered on 07/21/18 11:24; Admin Dose 300 MG; Start 07/21/18 at 10:30 Fentanyl 100 ml @ 2.5 mls/hr TITRATE IV Last administered on 07/22/18 05:33; Admin Dose 5 MLS/HR; Start 07/21/18 at 14:00 Norepinephrine 250 ml @ 1.875 mls/ hr TITRATE IV ; Start 07/21/18 at 13:00 Midazolam HCl 50 ml @ 1 mls/hr TITRATE IV Last administered on 07/22/18 05:03; Admin Dose 2 MLS/HR; Start 07/21/18 at 17:00 Potassium Chloride 20 meq/ Calcium Chloride 1 gm/Dextrose/ Sodium Chloride 1,020 ml @ 60 mls/hr Q17H IV Last administered on 07/22/18 04:57; Admin Dose 60 MLS/HR; Start 07/22/18 at 03:30 Assessment/Plan Hospital Course (Demo Recall) 1. Unstable angina 2. Multivessel coronary artery disease 3. 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 Diabetes 5. History of hypertension 6. Anemia 7. Postop respiratory failure currently intubated 8. POST OP FEVER : improved Recommendations: Respiratory care will be continued managed as per pulm. weaning as tolerated. Continue with insulin drip for now titrated down dobutamine as tolerated/needed Chest tube management as per CT surgery abx as per ID rec We will closely monitor in the intensive care unit More than 33 minutes of critical care time was for management treatment of this patient excluding procedure Thank you for his referral. We will continue to follow along with you. SEAN NOGUERA MD [facility] SEAN NOGUERA MD Jul 22, 2018 08:25
[2018-07-22] MEDS: ASPIRIN 300 MG SUPP PR SCH (08:44)
--- NOTE | 2018-07-22 08:53 | PN ---
DATE: 07/22/2018 SUBJECTIVE: The patient remains on full ventilatory support. No other acute events noted. No hemop tysis, hematemesis, or hematochezia. OBJECTIVE: VITAL SIGNS: Blood pressure is 140/49, respirations 18, temperature 99.0. HEENT: Head is normocephalic. NECK: Supple. HEART: Regular rate. LUNGS: Show diminished breath sounds at the base. ABDOMEN: Soft, nontender to palpation without rebound or guarding. EXTREMITIES: Negative for clubbing, cyanosis, no edema. DERMATOLOGIC: No rashes. MUSCULOSKELETAL: No joint effusion. NEUROLOGIC: No change in exam. MEDICATIONS: Reviewed. LABORATORY DATA: Shows sodium 143, potassium 4.6, chloride 113, BUN 13, creatinine 1.38. White coun t 13.1, hemoglobin 10.7, platelet count is 148. ASSESSMENT AND PLAN: 1. Nonoliguric acute kidney injury with previous baseline creatinine of 0.9 mg/dL. Etiology of acut e kidney injury is likely secondary to hemodynamics, possible tubular injury status post coronary art daphne bypass graft and shock. The patient's renal function has been fluctuating but has been stable in the last 24 to 48 hours. The patient's urinalysis, urine electrolytes have been reviewed. At this point, continue current medical management. Continue pressor support, inotropic support to maintain MAP of 65. Continue renally dose all medicines, avoid nephrotoxins, monitor closely with gentle flui d challenges and boluses recently given. 2. Hypernatremia, etiology is secondary to insensible losses in conjunction with recent diuretic the rapy. The patient's sodium levels have improved with free water flushes. We will continue to monito r. 3. Anemia. Monitor hemoglobin and hematocrit levels. 4. Mineral bone disorder. Monitor calcium and phosphorus levels. 5. Coronary artery disease, status post 3-vessel coronary artery bypass graft. Continue medical man agement. Follow up CT surgery. 6. Ventilator-dependent respiratory failure. Vent settings and ABG was reviewed. Continue to monit or. 7. Shock. Etiology may be cardiogenic, questionable hemodynamics. The patient is currently on inot ropic support. We will continue to titrate off as tolerated. We will continue to monitor. Consider fluid challenges, we will follow up with cardiology, CT surgery. 8. Systemic inflammatory response syndrome. Continue medical management. Continue antibiotic thera py. 9. Diabetes. Continue current insulin regimen. 10. History of hypertension. Please note I spent over 30 minutes of critical care time with this patient. Dictated By: MARCO ANTONIO BARRETT DO NR/DEYA Conf#: [id number] DID#: [id number] CC: KARINA MADDOX MD; SUZETTE SIMMONS MD; VANIA LAMB MD;*EndCC*
--- NOTE | 2018-07-22 10:30 | PN ---
Date/Time of Note Date/Time of Note DATE: 07/22/18 TIME: 10:28 Objective Vitals Vital Signs Date Temp Pulse Resp B/P (MAP) Pulse Ox O2 O2 Flow FiO2 Time Delivery Rate 07/22/18 99.5 94 21 127/68 98 10:00 (87) 07/22/18 Mechanical 10:00 Ventilator 07/22/18 40 09:45 Intake and Output 07/21/18 07/21/18 07/22/18 1515:00 23:00 07:00 IntakeIntake Total 2290.737 ml 1033.664 ml 975.2 ml OutputOutput Total 269 ml 396 ml 370 ml BalanceBalance 2021.737 ml 637.664 ml 605.2 ml Results Result Diagram: 07/22/185 07/22/185 Medications Medications Current Medications IV Flush (NS 3 ml) 3 ml PER PROTOCOL IV ; Start 07/11/18 at 05:30 Ondansetron HCl (Zofran Inj) 4 mg Q6H PRN IV NAUSEA/VOMITING Last administered on 07/18/18at 08:46; Admin Dose 4 MG; Start 07/11/18 at 05:30 Nitroglycerin (Nitroglycerin (Sl Tab) 0.4 Mg) 1 tab Q5M PRN SL .CHEST PAIN; Start 07/11/18 at 05:30 Acetaminophen (Tylenol Tab) 650 mg Q6H PRN PO .PAIN 1-3 OR TEMP Last administered on 07/20/18 07:42; Admin Dose 650 MG; Start 07/11/18 at 05:30 Acetaminophen/ Hydrocodone Bitart ([place] (5/325)) 1 tab Q6H PRN PO .PAIN 4-6 Last administered on 07/12/18 08:15; Admin Dose 1 TAB; Start 07/11/18 at 05:30 Heparin Sodium (Porcine) (Heparin (5000 Units/1ml)) 5,000 unit Q8 SC Last administered on 07/19/18 21:22; Admin Dose 5,000 UNIT; Start 07/11/18 at 06:00; Status Hold Atorvastatin Calcium (Lipitor) 40 mg HS PO Last administered on 07/19/18 21:09; Admin Dose 40 MG; Start 07/11/18 at 21:00 Metoprolol Tartrate (Lopressor) 25 mg BID PO Last administered on 07/20/18 08:39; Admin Dose 25 MG; Start 07/11/18 at 13:00 Lisinopril (Zestril) 20 mg DAILY PO Last administered on 07/20/18 08:40; Admin Dose 20 MG; Start 07/11/18 at 13:00 Simethicone (Mylicon) 80 mg QID PRN GTB DISTENSION/GAS/BLOATING Last administer ed on 07/16/18 17:28; Admin Dose 80 MG; Start 07/13/18 at 12:30 Morphine Sulfate (morphine) 6 mg Q4H PRN PO SEVERE PAIN LEVEL 7-10; Start 07/14/18 at 22:00 Guaifenesin (Mucinex) 600 mg BID PO Last administered on 07/20/18 08:40; Admin Dose 600 MG; Start 07/15/18 at 10:30 Sodium Chloride (Deep Sea) 2 spray BID PRN NASAL congestion; Start 07/15/18 at 10:30 Isosorbide Dinitrate (Isordil) 40 mg BID PO Last administered on 07/20/18 08:40; Admin Dose 40 MG; Start 07/17/18 at 17:00 Milrinone Lactate 100 ml @ 6.975 mls/ hr TITRATE IV Last administered on 07/20/18 22:18; Admin Dose 6.975 MLS/HR; Start 07/20/18 at 21:00 Propofol 100 ml @ 1.86 mls/hr Q12H PRN IV AGITATION/ANXIETY Last administered on 07/21/18 15:55; Admin Dose 3.72 MLS/HR; Start 07/20/18 at 21:00 Diagnostic Test (Pha) (Accu-Chek) 1 ea Q1H XX Last administered on 07/22/18 06:51; Admin Dose 1 EA; Start 07/20/18 at 21:00 Insulin Human Regular 100 unit/ Sodium Chloride 100 ml @ 0 mls/hr PER PROTOCOL IV Last administered on 07/21/18 22:08; Admin Dose 9 MLS/HR; Start 07/20/18 at 21:00 Miscellaneous Information (* Miscellaneous Pharmacy Order) Treatment of Hypoglycemia: 1.BG 51... Per protocol XX ; Start 07/20/18 at 21:00 Dextrose (D50w Syringe) 25 ml Q15M PRN IV .DECREASED GLUCOSE; Start 07/20/18 at 21:00 Dextrose (D50w Syringe) 50 ml Q15M PRN IV .DECREASED GLUCOSE; Start 07/20/18 at 21:00 Dobutamine HCl/ Dextrose 250 ml @ 9.3 mls/hr TITRATE IV Last administered on 07/22/18at 06:51; Admin Dose 37.2 MLS/HR; Start 07/20/18 at 21:00 Nicardipine HCl 200 ml @ 50 mls/hr TITRATE PRN IV ANESTHESIA; Start 07/20/18 at 21:00 Nitroglycerin/ Dextrose 250 ml @ 1.5 mls/hr TITRATE IV Last administered on 07/20/18at 22:33; Admin Dose 30 MLS/HR; Start 07/20/18 at 22:30 Potassium Chloride 50 ml @ 50 mls/hr SEE DIRECTION PRN IVPB K+ LEVEL Last administered on 07/21/18at 13:44; Admin Dose 50 MLS/HR; Start 07/20/18 at 23:30 Magnesium Sulfate/ Dextrose 100 ml @ 100 mls/hr PRN PRN IVPB PENDING LAB VALUE; Start 07/20/18 at 23:30 Cefazolin Sodium 50 ml @ 100 mls/hr Q8 IVPB Last administered on 07/22/18at 05:07; Admin Dose 100 MLS/HR; Start 07/21/18 at 06:00 Hydromorphone HCl (Dilaudid) 0.2 mg Q15M PRN IV PAIN LEVEL 1-5; Start 07/21/18 at 04:30 Hydromorphone HCl (Dilaudid) 0.4 mg Q15M PRN IV PAIN LEVEL 6-10; Start 07/21/18 at 04:30 Hydromorphone HCl (Dilaudid) 0.2 mg Q1H PRN IV PAIN LEVEL 1-5; Start 07/21/18 at 04:30 Hydromorphone HCl (Dilaudid) 0.4 mg Q1H PRN IV PAIN LEVEL 6-10; Start 07/21/18 at 04:30 Oxycodone/ Acetaminophen (Percocet (5/ 325)) 1 tab Q3H PRN PO PAIN LEVEL 1-5; Start 07/21/18 at 04:30 Oxycodone/ Acetaminophen (Percocet (5/ 325)) 2 tab Q3H PRN PO PAIN LEVEL 6-10; Start 07/21/18 at 04:30 Midazolam HCl (Versed) 2 mg Q2H PRN IV AGITATION; Start 07/21/18 at 04:30 Acetaminophen (Tylenol Supp) 650 mg Q4H PRN [place] MILD PAIN(1-3) OR TEMP>38C Last administered on 07/22/18 04:57; Admin Dose 650 MG; Start 07/21/18 at 04:30 Morphine Sulfate (morphine) 2 mg Q2 PRN IV PAIN LEVEL 1-5 Last administered on 07/21/18 15:08; Admin Dose 2 MG; Start 07/21/18 at 04:30 Morphine Sulfate (morphine) 4 mg Q2 PRN IV PAIN LEVEL 6-10 Last administered on 07/21/18 04:47; Admin Dose 4 MG; Start 07/21/18 at 04:30 Albumin Human 250 ml @ 500 mls/hr PRN PRN IV CVP< 8, OR SBP<90 Last administered on 07/21/18 07:49; Admin Dose 500 MLS/HR; Start 07/21/18 at 08:00 Acetaminophen (Tylenol Liquid) 650 mg Q6 PRN NGT MILD PAIN(1-3)OR ELEVATED TEMP Last administered on 07/21/18 08:48; Admin Dose 650 MG; Start 07/21/18 at 09:00 Pantoprazole (Protonix Iv) 40 mg DAILY@06 IV Last administered on 07/22/18 05:12; Admin Dose 40 MG; Start 07/22/18 at 06:00 Piperacillin Sod/ Tazobactam Sod 100 ml @ 200 mls/hr Q6 IVPB Last administered on 07/22/18 05:08; Admin Dose 200 MLS/HR; Start 07/21/18 at 12:00 Aspirin (Aspirin) 300 mg DAILY LA Last administered on 07/22/18 08:44; Admin Dose 300 MG; Start 07/21/18 at 10:30 Fentanyl 100 ml @ 2.5 mls/hr TITRATE IV Last administered on 07/22/18 05:33; Admin Dose 5 MLS/HR; Start 07/21/18 at 14:00 Norepinephrine 250 ml @ 1.875 mls/ hr TITRATE IV ; Start 07/21/18 at 13:00 Midazolam HCl 50 ml @ 1 mls/hr TITRATE IV Last administered on 07/22/18at 05:03; Admin Dose 2 MLS/HR; Start 07/21/18 at 17:00 Potassium Chloride 20 meq/ Calcium Chloride 1 gm/Dextrose/ Sodium Chloride 1,020 ml @ 60 mls/hr Q17H IV Last administered on 07/22/18at 04:57; Admin Dose 60 MLS/HR; Start 07/22/18 at 03:30 VTE Prophylaxis Risk score (from Ns)>0 risk: 13 [place]CD applied [place] [facility] [place] Yes Lines/Catheters IV Catheter Type: Roa in Place: No Assessment/Plan Hospital Course Subjective intubated still, but arousable Objective Physical exam General: Patient is laying in bed, intubated Mentation: Patient is arousable, but not fully oriented Head: Normocephalic atraumatic Eyes: EOMI, pupils reactive to light Neck: Supple, nontender, midline Respiratory: Clear to auscultation bilaterally Cardiovascular: regular rate, no obvious murmurs Gastrointestinal: non-tender to palpation, bowel sounds heard. Neurological: Moves all extremities spontaneously Skin: surgical site bandaged, CDI, Assessment/Plan CAD with unstable angina s/p 3V CABG 07/20/18 - CT surgery on board and appreciate consultation - Continue cardiac meds with aspirin, statin, metoprolol, lisinopril when able - Plavix and aspirin to restart when ok with cards/CT surgery acute hypoxic resp distress -2/2 to above CABG -titrate off when able hypotension -2/2 CABG -titrate pressors as needed fever/white count -blood cultures done -still cont empiric abx Uncontrolled diabetes - A1c at OSH noted to be 12.3 - Diabetic education consultation appreciated - Lantus and Novolog on board and adjustments made for better control - Upon d/c will give Metformin/Jardiance, Basaglar and Novolog- per DM educator recommendation Hypertension - Continue current medications Cough with congestion - Mucinex for relief - Nasal saline PRN Disposition over 40 minutes of critical care time spent on this evaluation -cont ICU stay -pulm to extubate when ready FREDIS FALLON Jul 22, 2018 10:30
--- NOTE | 2018-07-22 10:49 | CONS ---
Consult Date/Type/Reason Admit Date/Time Jul 11, 2018 at 04:15 Initial Consult Date 07/17/18 Type of Consult Pulmonary Requesting Provider: VANIA LAMB MD Date/Time of Note DATE: 07/22/18 TIME: 10:48 Subjective No significant changes overnight. Patient remains stable Awake alert on CPAP trial this morning. Failed CPAP weaning trial yesterday. Continues dobutamine for hemodynamic support. Objective Vital Signs Date Temp Pulse Resp B/P (MAP) Pulse Ox O2 O2 Flow FiO2 Time Delivery Rate 07/22/18 99.5 94 21 127/68 98 10:00 (87) 07/22/18 Mechanical 10:00 Ventilator 07/22/18 40 09:45 Intake and Output 07/21/18 07/21/18 07/22/18 1515:00 23:00 07:00 IntakeIntake Total 2290.737 ml 1033.664 ml 975.2 ml OutputOutput Total 269 ml 396 ml 370 ml BalanceBalance 2021.737 ml 637.664 ml 605.2 ml Exam PHYSICAL EXAMINATION: GENERAL: Well-nourished, well-developed gentleman, comfortable at rest, no acute distress. VITAL SIGNS: As above NECK: Supple. No JVD or lymphadenopathy. CARDIAC: Sounds S1, S2. No added sounds or murmurs. CHEST: Diminished air entry bilaterally. ABDOMEN: Soft, nontender. No guarding or rebound. EXTREMITIES: No cyanosis, clubbing, or edema. NEUROLOGIC: Grossly intact. Vent Setting Ventilator Support Mode: AC Fraction of Inspired Oxygen pe: 40 Positive End Expiratory Pressu: 5.0 Results/Medications Result Diagram: 07/22/18 0445 07/22/18 0445 Results 24 hrs Laboratory Tests Test 07/21/18 10:58 07/21/18 11:50 07/21/18 12:56 07/21/18 13:54 Bedside Glucose 194 202 201 187 Potassium Level 4.2 Test 07/21/18 14:44 07/21/18 15:50 07/21/18 16:58 07/21/18 17:49 Bedside Glucose 178 187 189 196 Test 07/21/18 18:49 07/21/18 18:53 07/21/18 19:52 07/21/18 20:55 Bedside Glucose 181 194 187 White Blood Count 15.2 #H Red Blood Count 3.56 L Hemoglobin 10.2 L Hematocrit 31.1 L Mean Corpuscular 87.4 Volume Mean Corpuscular 28.7 L Hemoglobin Mean Corpuscular 32.8 Hemoglobin Concen t Red Cell 13.3 Distribution Width Platelet Count 148 Mean Platelet 9.9 Volume Immature 0.900 H Granulocytes % Neutrophils % 85.6 H Lymphocytes % 5.7 L Monocytes % 7.4 Eosinophils % 0.1 Basophils % 0.3 Nucleated Red 0.0 Blood Cells % Immature 0.140 H Granulocytes # Neutrophils # 13.1 H Lymphocytes # 0.9 Monocytes # 1.1 H Eosinophils # 0.0 Basophils # 0.0 Nucleated Red 0.0 Blood Cells # Prothrombin Time 16.0 H Prothrombin Time 1.3 Ratio INR International 1.27 Normalized Ratio Activated 33.2 Partial Thrombopl ast Time Platelet 115 Func Collagen/Epi nephrine Platelet Function Collagen/ADP Sodium Level 144 Potassium Level 5.3 H Chloride Level 113 H Carbon Dioxide 24 Level Anion Gap 7 Blood Urea 15 Nitrogen Creatinine 1.49 H Est Glomerular 47 L Filtrat Rate mL/min Glucose Level 190 Calcium Level 9.6 Magnesium Level 2.5 Test 07/21/18 21:48 07/21/18 22:50 07/21/18 23:47 07/22/18 01:04 Bedside Glucose 178 186 181 168 Test 07/22/18 02:35 07/22/18 04:09 07/22/18 04:45 07/22/18 06:12 Bedside Glucose 175 185 194 White Blood Count 15.1 H Red Blood Count 3.64 L Hemoglobin 10.7 L Hematocrit 31.8 L Mean Corpuscular 87.4 Volume Mean Corpuscular 29.4 Hemoglobin Mean Corpuscular 33.6 Hemoglobin Concen t Red Cell 13.2 Distribution Width Platelet Count 148 Mean Platelet 10.4 Volume Immature 0.700 H Granulocytes % Neutrophils % 86.2 H Lymphocytes % 5.8 L Monocytes % 6.5 Eosinophils % 0.5 Basophils % 0.3 Nucleated Red 0.0 Blood Cells % Immature 0.110 H Granulocytes # Neutrophils # 13.0 H Lymphocytes # 0.9 Monocytes # 1.0 H Eosinophils # 0.1 Basophils # 0.0 Nucleated Red 0.0 Blood Cells # Sodium Level 143 Potassium Level 4.6 Chloride Level 113 H Carbon Dioxide 21 Level Anion Gap 9 Blood Urea 13 Nitrogen Creatinine 1.38 H Est Glomerular 51 L Filtrat Rate mL/min Glucose Level 184 Calcium Level 9.7 Phosphorus Level 3.3 Magnesium Level 2.2 Albumin 3.1 L Test 07/22/18 07:00 07/22/18 08:07 07/22/18 09:02 07/22/18 10:00 Blood Gas Blood arterial Specimen Source Arterial Blood 07/22/2018 7:12:2 Date Drawn 1 AM Arterial Blood pH 7.430 (Temp corrected) Arterial Blood 32.2 L pCO2 (Temp correct) Arterial Blood 80.6 pO2 (Temp corrected) Arterial Blood 20.9 L HCO3 Arterial Blood -2.7 Base Excess Arterial Blood 95.0 Oxygen Saturation Tima Test N/A Arterial Blood A-Line Gas Puncture Site Arterial 0.3 Blood Carboxyhemo globin Arterial Blood 0.1 Methemoglobin Blood Gas A-a O2 167.6 H Differential Oxyhemoglobin 94.6 Percent Blood Gas 37.0 Temperature Blood Gas 15.0 Respiration Rate Blood Gas Actual 20 Respiration Rate Blood Gas VENT - AC Modality FiO2 40.0 Blood Gas Tidal 500.0 Volume Blood Gas Low 5.0 PEEP Setting Blood Gas TM Notified Whom Blood Gas 07/22/2018 7:31:5 Notified Time 8 AM Bedside Glucose 159 139 146 Medications Current Medications IV Flush (NS 3 ml) 3 ml PER PROTOCOL IV ; Start 07/11/18 at 05:30 Ondansetron HCl (Zofran Inj) 4 mg Q6H PRN IV NAUSEA/VOMITING Last administered on 07/18/18at 08:46; Admin Dose 4 MG; Start 07/11/18 at 05:30 Nitroglycerin (Nitroglycerin (Sl Tab) 0.4 Mg) 1 tab Q5M PRN SL .CHEST PAIN; Start 07/11/18 at 05:30 Acetaminophen (Tylenol Tab) 650 mg Q6H PRN PO .PAIN 1-3 OR TEMP Last administered on 07/20/18at 07:42; Admin Dose 650 MG; Start 07/11/18 at 05:30 Acetaminophen/ Hydrocodone Bitart ([place] (5/325)) 1 tab Q6H PRN PO .PAIN 4-6 Last administered on 07/12/18at 08:15; Admin Dose 1 TAB; Start 07/11/18 at 05:30 Heparin Sodium (Porcine) (Heparin (5000 Units/1ml)) 5,000 unit Q8 SC Last administered on 07/19/18 21:22; Admin Dose 5,000 UNIT; Start 07/11/18 at 06:00; Status Hold Atorvastatin Calcium (Lipitor) 40 mg HS PO Last administered on 07/19/18 21:09; Admin Dose 40 MG; Start 07/11/18 at 21:00 Metoprolol Tartrate (Lopressor) 25 mg BID PO Last administered on 07/20/18 08:39; Admin Dose 25 MG; Start 07/11/18 at 13:00 Lisinopril (Zestril) 20 mg DAILY PO Last administered on 07/20/18 08:40; Admin Dose 20 MG; Start 07/11/18 at 13:00 Simethicone (Mylicon) 80 mg QID PRN GTB DISTENSION/GAS/BLOATING Last administered on 07/16/18 17:28; Admin Dose 80 MG; Start 07/13/18 at 12:30 Morphine Sulfate (morphine) 6 mg Q4H PRN PO SEVERE PAIN LEVEL 7-10; Start 07/14/18 at 22:00 Guaifenesin (Mucinex) 600 mg BID PO Last administered on 07/20/18 08:40; Admin Dose 600 MG; Start 07/15/18 at 10:30 Sodium Chloride (Deep Sea) 2 spray BID PRN NASAL congestion; Start 07/15/18 at 10:30 Isosorbide Dinitrate (Isordil) 40 mg BID PO Last administered on 07/20/18 08:40; Admin Dose 40 MG; Start 07/17/18 at 17:00 Milrinone Lactate 100 ml @ 6.975 mls/ hr TITRATE IV Last administered on 07/20/18 22:18; Admin Dose 6.975 MLS/HR; Start 07/20/18 at 21:00 Propofol 100 ml @ 1.86 mls/hr Q12H PRN IV AGITATION/ANXIETY Last administered on 07/21/18 15:55; Admin Dose 3.72 MLS/HR; Start 07/20/18 at 21:00 Diagnostic Test (Pha) (Accu-Chek) 1 ea Q1H XX Last administered on 07/22/18 06:51; Admin Dose 1 EA; Start 07/20/18 at 21:00 Insulin Human Regular 100 unit/ Sodium Chloride 100 ml @ 0 mls/hr PER PROTOCOL IV Last administered on 07/21/18at 22:08; Admin Dose 9 MLS/HR; Start 07/20/18 at 21:00 Miscellaneous Information (* Miscellaneous Pharmacy Order) Treatment of Hypoglycemia: 1.BG 51... Per protocol XX ; Start 07/20/18 at 21:00 Dextrose (D50w Syringe) 25 ml Q15M PRN IV .DECREASED GLUCOSE; Start 07/20/18 at 21:00 Dextrose (D50w Syringe) 50 ml Q15M PRN IV .DECREASED GLUCOSE; Start 07/20/18 at 21:00 Dobutamine HCl/ Dextrose 250 ml @ 9.3 mls/hr TITRATE IV Last administered on 07/22/18at 06:51; Admin Dose 37.2 MLS/HR; Start 07/20/18 at 21:00 Nicardipine HCl 200 ml @ 50 mls/hr TITRATE PRN IV ANESTHESIA; Start 07/20/18 at 21:00 Nitroglycerin/ Dextrose 250 ml @ 1.5 mls/hr TITRATE IV Last administered on 07/20/18at 22:33; Admin Dose 30 MLS/HR; Start 07/20/18 at 22:30 Potassium Chloride 50 ml @ 50 mls/hr SEE DIRECTION PRN IVPB K+ LEVEL Last administered on 07/21/18at 13:44; Admin Dose 50 MLS/HR; Start 07/20/18 at 23:30 Magnesium Sulfate/ Dextrose 100 ml @ 100 mls/hr PRN PRN IVPB PENDING LAB VALU E; Start 07/20/18 at 23:30 Cefazolin Sodium 50 ml @ 100 mls/hr Q8 IVPB Last administered on 07/22/18at 05:07; Admin Dose 100 MLS/HR; Start 07/21/18 at 06:00 Hydromorphone HCl (Dilaudid) 0.2 mg Q15M PRN IV PAIN LEVEL 1-5; Start 07/21/18 at 04:30 Hydromorphone HCl (Dilaudid) 0.4 mg Q15M PRN IV PAIN LEVEL 6-10; Start 07/21/18 at 04:30 Hydromorphone HCl (Dilaudid) 0.2 mg Q1H PRN IV PAIN LEVEL 1-5; Start 07/21/18 at 04:30 Hydromorphone HCl (Dilaudid) 0.4 mg Q1H PRN IV PAIN LEVEL 6-10; Start 07/21/18 at 04:30 Oxycodone/ Acetaminophen (Percocet (5/ 325)) 1 tab Q3H PRN PO PAIN LEVEL 1-5; Start 07/21/18 at 04:30 Oxycodone/ Acetaminophen (Percocet (5/ 325)) 2 tab Q3H PRN PO PAIN LEVEL 6-10; Start 07/21/18 at 04:30 Midazolam HCl (Versed) 2 mg Q2H PRN IV AGITATION; Start 07/21/18 at 04:30 Acetaminophen (Tylenol Supp) 650 mg Q4H PRN [place] MILD PAIN(1-3) OR TEMP>38C Last administered on 07/22/18 04:57; Admin Dose 650 MG; Start 07/21/18 at 04:30 Morphine Sulfate (morphine) 2 mg Q2 PRN IV PAIN LEVEL 1-5 Last administered on 07/21/18at 15:08; Admin Dose 2 MG; Start 07/21/18 at 04:30 Morphine Sulfate (morphine) 4 mg Q2 PRN IV PAIN LEVEL 6-10 Last administered on 07/21/18 04:47; Admin Dose 4 MG; Start 07/21/18 at 04:30 Albumin Human 250 ml @ 500 mls/hr PRN PRN IV CVP< 8, OR SBP<90 Last a dministered on 07/21/18at 07:49; Admin Dose 500 MLS/HR; Start 07/21/18 at 08:00 Acetaminophen (Tylenol Liquid) 650 mg Q6 PRN NGT MILD PAIN(1-3)OR ELEVATED TEMP Last administered on 07/21/18 08:48; Admin Dose 650 MG; Start 07/21/18 at 09:00 Pantoprazole (Protonix Iv) 40 mg DAILY@06 IV Last administered on 07/22/18 05:12; Admin Dose 40 MG; Start 07/22/18 at 06:00 Piperacillin Sod/ Tazobactam Sod 100 ml @ 200 mls/hr Q6 IVPB Last administered on 07/22/18 05:08; Admin Dose 200 MLS/HR; Start 07/21/18 at 12:00 Aspirin (Aspirin) 300 mg DAILY ID Last administered on 07/22/18at 08:44; Admin Dose 300 MG; Start 07/21/18 at 10:30 Fentanyl 100 ml @ 2.5 mls/hr TITRATE IV Last administered on 07/22/18at 05:33; Admin Dose 5 MLS/HR; Start 07/21/18 at 14:00 Norepinephrine 250 ml @ 1.875 mls/ hr TITRATE IV ; Start 07/21/18 at 13:00 Midazolam HCl 50 ml @ 1 mls/hr TITRATE IV Last administered on 07/22/18at 05:03; Admin Dose 2 MLS/HR; Start 07/21/18 at 17:00 Potassium Chloride 20 meq/ Calcium Chloride 1 gm/Dextrose/ Sodium Chloride 1,020 ml @ 60 mls/hr Q17H IV Last administered on 07/22/18at 04:57; Admin Dose 60 MLS/HR; Start 07/22/18 at 03:30 Assessment/Plan Hospital Course (Demo Recall) IMPRESSION 1. Multivessel coronary artery disease, status post coronary artery bypass graft, postoperative day 2. 2. Prior significant tobacco history, likely underlying chronic obstructive pulmonary disease (COPD). 3. Diabetes mellitus, poorly controlled, glycemic management prior to surgery. 4. Status post thymectomy. 5. Cardiogenic shock requiring dobutamine support. Plan 1. Continue assist-control (AC) mechanical ventilation, having failed continuous positive airway pressure (CPAP) trial this morning. 2. Continue chest tube and postoperative surgical management, per cardiothoracic surgery. Currently on dobutamine and milrinone 3. May require bronchodilator treatment, incentive spirometry. 4. Pre-extubation cuff leak test to exclude laryngeal edema. 5. Deep venous thrombosis (DVT) and gastrointestinal (GI) prophylaxis. Critical care time 40 minutes. AHMET TAVAREZ MD, [facility] Jul 22, 2018 10:49
[2018-07-22] MEDS: morphine 2 MG INJ IV PRN (12:00)
[2018-07-22] MEDS: INSULIN HUMAN REGULAR 100 UNIT in SOD CHLORIDE 0.9% 99 ML IV SCH (12:40)
--- NOTE | 2018-07-22 15:27 | CONS ---
Assessment/Plan Assessment/Plan Hospital Course (Demo Recall) 1145 No acute events overnight, patient is awake, comfortable on vent with low-grade fevers T-max this morning was 101 T current 99.6. WBC 15.1 H&H 10.7 and 31.8 platelets 148 neutrophils 86.2. BUN 13 creatinine 1.38 Patient is on insulin, dobutamine drips off sedation Microbiology: All cultures negative Indwelling: Endotracheal tube NG tube right IJ [place], chest tubes, Roa, le ft radial A-line Antimicrobials: Zosyn Physical examination: Well-developed elderly man who is awake in no distress. Head atraumatic normocephalic. Sclera nonicteric. Buccal mucosa dry. Neck is supple, chest rise symmetrical, breath sounds diminished bases. Heart: S1-S2. Abdomen, distended, soft, bowel sounds present. Extremities with trace edema. Assessment: 1. Systemic inflammatory response syndrome with postoperative fevers, likely pulmonary source 2. Multivessel coronary artery disease, status post CABG 3. Diabetes 4. Status post thymectomy 5. Acute kidney insufficiency Plan: Patient is clinically stable, continue present care and antibiotics, follow final cultures, weaning trials per pulmonary Consultation Date/Type/Reason Admit Date/Time Jul 11, 2018 at 04:15 Initial Consult Date 07/17/18 Type of Consult id Requesting Provider: VANIA LAMB MD Date/Time of Note DATE: 07/22/18 TIME: 15:25 Exam/Review of Systems Exam Vitals Vital Signs Date Temp Pulse Resp B/P (MAP) Pulse Ox O2 O2 Flow FiO2 Time Delivery Rate 07/22/18 93 17 134/67 100 Mechanical 15:00 (89) Ventilator 07/22/18 99.6 15:00 07/22/18 40 12:34 Intake and Output 07/21/18 07/21/18 07/22/18 1515:00 23:00 07:00 IntakeIntake Total 2290.737 ml 1033.664 ml 975.2 ml OutputOutput Total 269 ml 396 ml 370 ml BalanceBalance 2021.737 ml 637.664 ml 605.2 ml Results Result Diagram: 07/22/18 0445 07/22/18 0445 Results 24hrs Laboratory Tests Test 07/21/18 15:50 07/21/18 16:58 07/21/18 17:49 07/21/18 18:49 Bedside Glucose 187 189 196 181 Test 07/21/18 18:53 07/21/18 19:52 07/21/18 20:55 07/21/18 21:48 White Blood Count 15.2 #H Red Blood Count 3.56 L Hemoglobin 10.2 L Hematocrit 31.1 L Mean Corpuscular 87.4 Volume Mean Corpuscular 28.7 L Hemoglobin Mean Corpuscular 32.8 Hemoglobin Concen t Red Cell 13.3 Distribution Width Platelet Count 148 Mean Platelet 9.9 Volume Immature 0.900 H Granulocytes % Neutrophils % 85.6 H Lymphocytes % 5.7 L Monocytes % 7.4 Eosinophils % 0.1 Basophils % 0.3 Nucleated Red 0.0 Blood Cells % Immature 0.140 H Granulocytes # Neutrophils # 13.1 H Lymphocytes # 0.9 Monocytes # 1.1 H Eosinophils # 0.0 Basophils # 0.0 Nucleated Red 0.0 Blood Cells # Prothrombin Time 16.0 H Prothrombin Time 1.3 Ratio INR International 1.27 Normalized Ratio Activated 33.2 Partial Thrombopl ast Time Platelet 115 Func Collagen/Epi nephrine Platelet Function Collagen/ADP Sodium Level 144 Potassium Level 5.3 H Chloride Level 113 H Carbon Dioxide 24 Level Anion Gap 7 Blood Urea 15 Nitrogen Creatinine 1.49 H Est Glomerular 47 L Filtrat Rate mL/min Glucose Level 190 Calcium Level 9.6 Magnesium Level 2.5 Bedside Glucose 194 187 178 Test 07/21/18 22:50 07/21/18 23:47 07/22/18 01:04 07/22/18 02:35 Bedside Glucose 186 181 168 175 Test 07/22/18 04:09 07/22/18 04:45 07/22/18 06:12 07/22/18 07:00 Bedside Glucose 185 194 White Blood Count 15.1 H Red Blood Count 3.64 L Hemoglobin 10.7 L Hematocrit 31.8 L Mean Corpuscular 87.4 Volume Mean Corpuscular 29.4 Hemoglobin Mean Corpuscular 33.6 Hemoglobin Concen t Red Cell 13.2 Distribution Width Platelet Count 148 Mean Platelet 10.4 Volume Immature 0.700 H Granulocytes % Neutrophils % 86.2 H Lymphocytes % 5.8 L Monocytes % 6.5 Eosinophils % 0.5 Basophils % 0.3 Nucleated Red 0.0 Blood Cells % Immature 0.110 H Granulocytes # Neutrophils # 13.0 H Lymphocytes # 0.9 Monocytes # 1.0 H Eosinophils # 0.1 Basophils # 0.0 Nucleated Red 0.0 Blood Cells # Sodium Level 143 Potassium Level 4.6 Chloride Level 113 H Carbon Dioxide 21 Level Anion Gap 9 Blood Urea 13 Nitrogen Creatinine 1.38 H Est Glomerular 51 L Filtrat Rate mL/min Glucose Level 184 Calcium Level 9.7 Phosphorus Level 3.3 Magnesium Level 2.2 Albumin 3.1 L Blood Gas Blood arterial Specimen Source Arterial Blood 07/22/2018 7:12:2 Date Drawn 1 AM Arterial Blood pH 7.430 (Temp corrected) Arterial Blood 32.2 L pCO2 (Temp correct) Arterial Blood 80.6 pO2 (Temp corrected) Arterial Blood 20.9 L HCO3 Arterial Blood -2.7 Base Excess Arterial Blood 95.0 Oxygen Saturation Tima Test N/A Arterial Blood A-Line Gas Puncture Site Arterial 0.3 Blood Carboxyhemo globin Arterial Blood 0.1 Methemoglobin Blood Gas A-a O2 167.6 H Differential Oxyhemoglobin 94.6 Percent Blood Gas 37.0 Temperature Blood Gas 15.0 Respiration Rate Blood Gas Actual 20 Respiration Rate Blood Gas VENT - AC Modality FiO2 40.0 Blood Gas Tidal 500.0 Volume Blood Gas Low 5.0 PEEP Setting Blood Gas TM Notified Whom Blood Gas 07/22/2018 7:31:5 Notified Time 8 AM Test 07/22/18 08:07 07/22/18 09:02 07/22/18 10:00 07/22/18 11:04 Bedside Glucose 159 139 146 142 Test 07/22/18 12:03 07/22/18 12:54 07/22/18 14:10 07/22/18 14:55 Bedside Glucose 147 162 147 140 Medications Medication Current Medications IV Flush (NS 3 ml) 3 ml PER PROTOCOL IV ; Start 07/11/18 at 05:30 Ondansetron HCl (Zofran Inj) 4 mg Q6H PRN IV NAUSEA/VOMITING Last administered on 07/18/18at 08:46; Admin Dose 4 MG; Start 07/11/18 at 05:30 Nitroglycerin (Nitroglycerin (Sl Tab) 0.4 Mg) 1 tab Q5M PRN SL .CHEST PAIN; Start 07/11/18 at 05:30 Acetaminophen (Tylenol Tab) 650 mg Q6H PRN PO .PAIN 1-3 OR TEMP Last administered on 07/20/18 07:42; Admin Dose 650 MG; Start 07/11/18 at 05:30 Heparin Sodium (Porcine) (Heparin (5000 Units/1ml)) 5,000 unit Q8 SC Last administered on 07/19/18 21:22; Admin Dose 5,000 UNIT; Start 07/11/18 at 06:00; Status Hold Atorvastatin Calcium (Lipitor) 40 mg HS PO Last administered on 07/19/18 21:09; Admin Dose 40 MG; Start 07/11/18 at 21:00 Metoprolol Tartrate (Lopressor) 25 mg BID PO Last administered on 07/20/18 08:39; Admin Dose 25 MG; Start 07/11/18 at 13:00 Lisinopril (Zestril) 20 mg DAILY PO Last administered on 07/20/18 08:40; Admin Dose 20 MG; Start 07/11/18 at 13:00 Simethicone (Mylicon) 80 mg QID PRN GTB DISTENSION/GAS/BLOATING Last administered on 07/16/18 17:28; Admin Dose 80 MG; Start 07/13/18 at 12:30 Guaifenesin (Mucinex) 600 mg BID PO Last administered on 07/20/18 08:40; Admin Dose 600 MG; Start 07/15/18 at 10:30 Sodium Chloride (Deep Sea) 2 spray BID PRN NASAL congestion; Start 07/15/18 at 10:30 Isosorbide Dinitrate (Isordil) 40 mg BID PO Last administered on 07/20/18 08:40; Admin Dose 40 MG; Start 07/17/18 at 17:00 Milrinone Lactate 100 ml @ 6.975 mls/ hr TITRATE IV Last administered on 07/20/18 22:18; Admin Dose 6.975 MLS/HR; Start 07/20/18 at 21:00 Propofol 100 ml @ 1.86 mls/hr Q12H PRN IV AGITATION/ANXIETY Last administered on 07/21/18 15:55; Admin Dose 3.72 MLS/HR; Start 07/20/18 at 21:00 Diagnostic Test (Pha) (Accu-Chek) 1 ea Q1H XX Last administered on 07/22/18 06:51; Admin Dose 1 EA; Start 07/20/18 at 21:00 Insulin Human Regular 100 unit/ Sodium Chloride 100 ml @ 0 mls/hr PER PROTOCOL IV Last administered on 07/22/18at 12:40; Admin Dose 5 MLS/HR; Start 07/20/18 at 21:00 Miscellaneous Information (* Miscellaneous Pharmacy Order) Treatment of Hypoglycemia: 1.BG 51... Per protocol XX ; Start 07/20/18 at 21:00 Dextrose (D50w Syringe) 25 ml Q15M PRN IV .DECREASED GLUCOSE; Start 07/20/18 at 21:00 Dextrose (D50w Syringe) 50 ml Q15M PRN IV .DECREASED GLUCOSE; Start 07/20/18 at 21:00 Dobutamine HCl/ Dextrose 250 ml @ 9.3 mls/hr TITRATE IV Last administered on 07/22/18 06:51; Admin Dose 37.2 MLS/HR; Start 07/20/18 at 21:00 Nicardipine HCl 200 ml @ 50 mls/hr TITRATE PRN IV ANESTHESIA; Start 07/20/18 at 21:00 Nitroglycerin/ Dextrose 250 ml @ 1.5 mls/hr TITRATE IV Last administered on 07/20/18 22:33; Admin Dose 30 MLS/HR; Start 07/20/18 at 22:30 Potassium Chloride 50 ml @ 50 mls/hr SEE DIRECTION PRN IVPB K+ LEVEL Last administered on 07/21/18at 13:44; Admin Dose 50 MLS/HR; Start 07/20/18 at 23:30 Magnesium Sulfate/ Dextrose 100 ml @ 100 mls/hr PRN PRN IVPB PENDING LAB VALUE; Start 07/20/18 at 23:30 Midazolam HCl (Versed) 2 mg Q2H PRN IV AGITATION; Start 07/21/18 at 04:30 Acetaminophen (Tylenol Supp) 650 mg Q4H PRN [place] MILD PAIN(1-3) OR TEMP>38C Last administered on 07/22/18 04:57; Admin Dose 650 MG; Start 07/21/18 at 04:30 Albumin Human 250 ml @ 500 mls/hr PRN PRN IV CVP< 8, OR SBP<90 Last admi nistered on 07/21/18at 07:49; Admin Dose 500 MLS/HR; Start 07/21/18 at 08:00 Acetaminophen (Tylenol Liquid) 650 mg Q6 PRN NGT MILD PAIN(1-3)OR ELEVATED TEMP Last administered on 07/21/18 08:48; Admin Dose 650 MG; Start 07/21/18 at 09:00 Pantoprazole (Protonix Iv) 40 mg DAILY@06 IV Last administered on 07/22/18 05:12; Admin Dose 40 MG; Start 07/22/18 at 06:00 Piperacillin Sod/ Tazobactam Sod 100 ml @ 200 mls/hr Q6 IVPB Last administered on 07/22/18 11:30; Admin Dose 200 MLS/HR; Start 07/21/18 at 12:00 Aspirin (Aspirin) 300 mg DAILY MO Last administered on 07/22/18 08:44; Admin Dose 300 MG; Start 07/21/18 at 10:30 Fentanyl 100 ml @ 2.5 mls/hr TITRATE IV Last administered on 07/22/18 05:33; Admin Dose 5 MLS/HR; Start 07/21/18 at 14:00 Norepinephrine 250 ml @ 1.875 mls/ hr TITRATE IV ; Start 07/21/18 at 13:00 Midazolam HCl 50 ml @ 1 mls/hr TITRATE IV Last administered on 07/22/18 05:03; Admin Dose 2 MLS/HR; Start 07/21/18 at 17:00 Potassium Chloride 20 meq/ Calcium Chloride 1 gm/Dextrose/ Sodium Chloride 1,020 ml @ 60 mls/hr Q17H IV Last administered on 07/22/18 04:57; Admin Dose 60 MLS/HR; Start 07/22/18 at 03:30 Morphine Sulfate (morphine) 1 mg Q4 PRN IV PAIN LEVEL 1-5; Start 07/22/18 at 11:30 Morphine Sulfate (morphine) 2 mg Q4 PRN IV PAIN LEVEL 6-10 Last administered on 07/22/18 12:00; Admin Dose 2 MG; Start 07/22/18 at 11:30 KATHY LOU NP Jul 22, 2018 15:27
[2018-07-22] MEDS: ALBUMIN HUMAN 5% 250 ML IV PRN ×2 (16:08→21:42)
--- NOTE | 2018-07-22 19:45 | PN ---
Date/Time of Note Date/Time of Note DATE: 07/22/18 TIME: 19:44 Assessment/Plan Lines/Catheters IV Catheter Type (from Nrsg): Roa in Place (from Nrsg): No Assessment/Plan Assessment/Plan Status post coronary artery bypass grafting Hemodynamically stable woke up Follows command Minimal inotropic support Failed weaning from the vent Will wean dobutamine tonight Try to wean for extubation tomorrow Subjective 24 Hr Interval Summary Constitutional: improved Pain Control: mild Exam/Review of Systems Vital Signs Vitals Vital Signs Date Temp Pulse Resp B/P (MAP) Pulse Ox O2 O2 Flow FiO2 Time Delivery Rate 07/22/18 82 22 111/48 100 19:30 (69) 07/22/18 99.2 19:00 07/22/18 Mechanical 19:00 Ventilator 07/22/18 40 17:25 Intake and Output 07/21/18 07/21/18 07/22/18 1515:00 23:00 07:00 IntakeIntake Total 2290.737 ml 1033.664 ml 975.2 ml OutputOutput Total 269 ml 396 ml 370 ml BalanceBalance 2021.737 ml 637.664 ml 605.2 ml Exam Eyes: nl conjunctiva, EOMI, nl lids, nl sclera ENMT: nl external ears & nose, nl lips & teeth, nl nasal mucosa & septum, mucosa pink and moist Neck: supple, non-tender Respiratory: clear to auscultation, normal air movement Cardiovascular: regular rate and rhythm, nl pulses Gastrointestinal: soft, nl liver, spleen, non-tender Musculoskeletal: nl extremities to inspection, nl gait and stance Results Result Diagram: 07/22/18 0445 07/22/18 0445 VANIA LAMB MD Jul 22, 2018 19:45
[2018-07-22] MEDS: ATORVASTATIN 40 MG TAB PO SCH (20:09)
[2018-07-23] VITALS (103 sets, daily range): BP systolic 81–188; BP diastolic 39–86; PULSE 60–84; RESP 14–43; TEMP 97.8–100.6
[2018-07-23] MEDS: ACCU-CHEK XX SCH ×23 (00:02→23:10)
[2018-07-23] MEDS: PIPER-TAZO 3.375 GM IV (PMX) 100 ML IVPB SCH ×4 (05:27→23:40)
[2018-07-23] MEDS: PANTOPRAZOLE 40 MG INJ IV SCH (05:27)
[2018-07-23] MEDS: FENTAnyl (DRIP) 1000 mcg/100mL 100 ML IV SCH (05:35)
[2018-07-23] MEDS: ACETAMINOPHEN 650MG/20.3ML CUP NGT PRN (06:10)
--- NOTE | 2018-07-23 07:17 | CONS ---
Consult Date/Type/Reason Admit Date/Time Jul 11, 2018 at 04:15 Initial Consult Date 07/17/18 Type of Consultation: cv Requesting Provider: VANIA LAMB MD Date/Time of Note DATE: 07/23/18 TIME: 07:10 Subjective Interventional cardiology follow-up progress note/critical care note Subjective: Discussed with the staff and physicians. Patient status post 3 v coronary artery bypass graft 07/20/2018. Patient on dobutamine/ levophed now pt is still intubated on vent. failed CPAP yesterday Objective: General: This man s/p intubation on the vent HEENT: NC/AT. pupils are equal. round. s/p OG tube NECK: . no stridor. Chest: Status post sternotomy, status post chest tube placed CV: RRR. systolic murmur; no gallop or rubs. PULM: no wheezing or rhonchi. GI: SOFT, NT, ND, no rebound or guarding Extremity: trace B/L LE edema. no clubbing. neuro: Sedated Psych: calm and pleasant rectal: deferred : normal PA pressure 27/17 CVP 10-13 Echocardiogram done 07/11/2018 which was personally reviewed shows: Normal left ventricular systolic function. Normal left ventricular cavity size. Sigmoid septum. Ejection fraction is visually estimated at 55 %. Tissue Doppler/Mitral Doppler indices are consistent with impaired relaxation (Stage I diastolic dysfunction). Mild mitral leaflet calcification. Mild mitral annular calcification. Trace mitral regurgitation. No significant aortic stenosis or insufficiency. Aortic cusps appear mildly calcified. Normal appearance of the tricuspid valve. Estimated peak PA systolic pressure 26 mmHg. There is trace tricuspid regurgitation. CXR 07/22: Interstitial edema suggesting cardiopulmonary congestion is similar in appearance. Small left pleural effusion is mildly increased. Objective Vitals Vital Signs Date Temp Pulse Resp B/P (MAP) Pulse Ox O2 O2 Flow FiO2 Time Delivery Rate 07/23/18 100.3 06:55 07/23/18 68 19 82/57 (65) 92 06:45 07/23/18 40 05:16 07/22/18 [place] 19:00 l Ventilato r Intake and Output 07/22/18 07/22/18 07/23/18 1515:00 23:00 07:00 IntakeIntake Total 846.25 ml 936.82 ml 999.80 ml OutputOutput Total 422 ml 306 ml 326 ml BalanceBalance 424.25 ml 630.82 ml 673.80 ml Results/Medications Result Diagram: 07/23/18 0426 07/23/18 0426 Results 24 hrs Laboratory Tests Test 07/22/18 08:07 07/22/18 09:02 07/22/18 10:00 07/22/18 11:04 Bedside Glucose 159 139 146 142 Test 07/22/18 12:03 07/22/18 12:54 07/22/18 14:10 07/22/18 14:55 Bedside Glucose 147 162 147 140 Test 07/22/18 15:56 07/22/18 17:12 07/22/18 17:54 07/22/18 18:53 Bedside Glucose 130 119 109 119 Test 07/22/18 19:57 07/22/18 20:56 07/22/18 22:09 07/22/18 23:59 Bedside Glucose 120 136 127 132 Test 07/23/18 01:51 07/23/18 03:55 07/23/18 04:26 07/23/18 05:55 Bedside Glucose 138 132 127 White Blood Count 14.1 H Red Blood Count 3.39 L Hemoglobin 9.8 L Hematocrit 29.7 L Mean Corpuscular 87.6 Volume Mean Corpuscular 28.9 L Hemoglobin Mean Corpuscular 33.0 Hemoglobin Concent Red Cell 13.5 Distribution Width Platelet Count 139 L Mean Platelet Volume 10.7 H Immature 0.600 H Granulocytes % Neutrophils % 82.0 H Lymphocytes % 10.2 L Monocytes % 5.5 Eosinophils % 1.6 Basophils % 0.1 Nucleated Red Blood 0.0 Cells % Immature 0.080 H Granulocytes # Neutrophils # 11.6 H Lymphocytes # 1.4 Monocytes # 0.8 Eosinophils # 0.2 Basophils # 0.0 Nucleated Red Blood 0.0 Cells # Sodium Level 138 Potassium Level 4.6 Chloride Level 111 H Carbon Dioxide Level 20 L Anion Gap 7 Blood Urea Nitrogen 13 Creatinine 1.06 Est Glomerular > 60 Filtrat Rate mL/min Glucose Level 131 # Calcium Level 9.6 Phosphorus Level 3.7 Magnesium Level 2.0 Medications Current Medications IV Flush (NS 3 ml) 3 ml PER PROTOCOL IV ; Start 07/11/18 at 05:30 Ondansetron HCl (Zofran Inj) 4 mg Q6H PRN IV NAUSEA/VOMITING Last administered on 07/18/18 08:46; Admin Dose 4 MG; Start 07/11/18 at 05:30 Nitroglycerin (Nitroglycerin (Sl Tab) 0.4 Mg) 1 tab Q5M PRN SL .CHEST PAIN; Start 07/11/18 at 05:30 Acetaminophen (Tylenol Tab) 650 mg Q6H PRN PO .PAIN 1-3 OR TEMP Last administered on 07/20/18 07:42; Admin Dose 650 MG; Start 07/11/18 at 05:30 Heparin Sodium (Porcine) (Heparin (5000 Units/1ml)) 5,000 unit Q8 SC Last administered on 07/19/18 21:22; Admin Dose 5,000 UNIT; Start 07/11/18 at 06:00; Status Hold Atorvastatin Calcium (Lipitor) 40 mg HS PO Last administered on 07/22/18 20:09; Admin Dose 40 MG; Start 07/11/18 at 21:00 Metoprolol Tartrate (Lopressor) 25 mg BID PO Last administered on 07/22/18 20 :09; Admin Dose 25 MG; Start 07/11/18 at 13:00 Lisinopril (Zestril) 20 mg DAILY PO Last administered on 07/20/18 08:40; Admin Dose 20 MG; Start 07/11/18 at 13:00 Simethicone (Mylicon) 80 mg QID PRN GTB DISTENSION/GAS/BLOATING Last administered on 07/16/18 17:28; Admin Dose 80 MG; Start 07/13/18 at 12:30 Guaifenesin (Mucinex) 600 mg BID PO Last administered on 07/20/18 08:40; Admin Dose 600 MG; Start 07/15/18 at 10:30 Sodium Chloride (Deep Sea) 2 spray BID PRN NASAL congestion; Start 07/15/18 at 10:30 Isosorbide Dinitrate (Isordil) 40 mg BID PO Last administered on 07/20/18 08:40; Admin Dose 40 MG; Start 07/17/18 at 17:00 Milrinone Lactate 100 ml @ 6.975 mls/ hr TITRATE IV Last administered on 07/20/18 22:18; Admin Dose 6.975 MLS/HR; Start 07/20/18 at 21:00 Propofol 100 ml @ 1.86 mls/hr Q12H PRN IV AGITATION/ANXIETY Last administered on 07/21/18at 15:55; Admin Dose 3.72 MLS/HR; Start 07/20/18 at 21:00 Diagnostic Test (Pha) (Accu-Chek) 1 ea Q1H XX Last administered on 07/23/18at 05:56; Admin Dose 1 EA; Start 07/20/18 at 21:00 Insulin Human Regular 100 unit/ Sodium Chloride 100 ml @ 0 mls/hr PER PROTOCOL IV Last administered on 07/22/18at 12:40; Admin Dose 5 MLS/HR; Start 07/20/18 at 21:00 Miscellaneous Information (* Miscellaneous Pharmacy Order) Treatment of Hypoglycemia: 1.BG 51... Per protocol XX ; Start 07/20/18 at 21:00 Dextrose (D50w Syringe) 25 ml Q15M PRN IV .DECREASED GLUCOSE; Start 07/20/18 at 21:00 Dextrose (D50w Syringe) 50 ml Q15M PRN IV .DECREASED GLUCOSE; Start 07/20/18 at 21:00 Dobutamine HCl/ Dextrose 250 ml @ 9.3 mls/hr TITRATE IV Last administered on 07/22/18at 19:16; Admin Dose 18.6 MLS/HR; Start 07/20/18 at 21:00 Nicardipine HCl 200 ml @ 50 mls/hr TITRATE PRN IV ANESTHESIA; Start 07/20/18 at 21:00 Nitroglycerin/ Dextrose 250 ml @ 1.5 mls/hr TITRATE IV Last administered on 07/20/18at 22:33; Admin Dose 30 MLS/HR; Start 07/20/18 at 22:30 Potassium Chloride 50 ml @ 50 mls/hr SEE DIRECTION PRN IVPB K+ LEVEL Last administered on 07/21/18at 13:44; Admin Dose 50 MLS/HR; Start 07/20/18 at 23:30 Magnesium Sulfate/ Dextrose 100 ml @ 100 mls/hr PRN PRN IVPB PENDING LAB VALUE; Start 07/20/18 at 23:30 Midazolam HCl (Versed) 2 mg Q2H PRN IV AGITATION; Start 07/21/18 at 04:30 Acetaminophen (Tylenol Supp) 650 mg Q4H PRN [place] MILD PAIN(1-3) OR TEMP>38C Last administered on 07/22/18 16:17; Admin Dose 650 MG; Start 07/21/18 at 04:30 Albumin Human 250 ml @ 500 mls/hr PRN PRN IV CVP< 8, OR SBP<90 Last administered on 07/22/18 21:42; Admin Dose 500 MLS/HR; Start 07/21/18 at 08:00 Acetaminophen (Tylenol Liquid) 650 mg Q6 PRN NGT MILD PAIN(1-3)OR ELEVATED TEMP Last administered on 07/23/18 06:10; Admin Dose 650 MG; Start 07/21/18 at 09:00 Pantoprazole (Protonix Iv) 40 mg DAILY@06 IV Last administered on 07/23/18 05:27; Admin Dose 40 MG; Start 07/22/18 at 06:00 Piperacillin Sod/ Tazobactam Sod 100 ml @ 200 mls/hr Q6 IVPB Last administered on 07/23/18 05:27; Admin Dose 200 MLS/HR; Start 07/21/18 at 12:00 Aspirin (Aspirin) 300 mg DAILY AL Last administered on 07/22/18 08:44; Admin Dose 300 MG; Start 07/21/18 at 10:30 Fentanyl 100 ml @ 2.5 mls/hr TITRATE IV Last administered on 07/23/18 05:35; Admin Dose 5 MLS/HR; Start 07/21/18 at 14:00 Norepinephrine 250 ml @ 1.875 mls/ hr TITRATE IV Last administered on 9at 07:05; Admin Dose 1.875 MLS/HR; Start 07/21/18 at 13:00 Midazolam HCl 50 ml @ 1 mls/hr TITRATE IV Last administered on 07/22/18 05:03; Admin Dose 2 MLS/HR; Start 07/21/18 at 17:00 Potassium Chloride 20 meq/ Calcium Chloride 1 gm/Dextrose/ Sodium Chloride 1,020 ml @ 60 mls/hr Q17H IV Last administered on 07/22/18 21:41; Admin Dose 60 MLS/HR; Start 07/22/18 at 03:30 Morphine Sulfate (morphine) 1 mg Q4 PRN IV PAIN LEVEL 1-5; Start 07/22/18 at 11:30 Morphine Sulfate (morphine) 2 mg Q4 PRN IV PAIN LEVEL 6-10 Last administered on 07/22/18at 12:00; Admin Dose 2 MG; Start 07/22/18 at 11:30 Assessment/Plan Hospital Course (Demo Recall) 1. Unstable angina 2. Multivessel coronary artery disease 3. 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 Diabetes 5. History of hypertension 6. Anemia 7. Postop respiratory failure currently intubated 8. POST OP FEVER : improved Recommendations: Respiratory care will be continued managed as per pulm. weaning as tolerated. Continue with insulin cont levophed as needed. will dc all BP meds for now since pt is too hypotensive asa daily Chest tube management as per CT surgery abx as per ID rec on PPI for GI prophylaxis I will add Lovenox for DVT prophylaxis as well We will closely monitor in the intensive care unit More than 35 minutes of critical care time was for management treatment of this patient excluding procedure Thank you for his referral. We will continue to follow along with you. SEAN NOGUERA MD [facility] SEAN NOGUERA MD Jul 23, 2018 07:16
[2018-07-23] MEDS ORDERED: FUROSEMIDE 20 MG INJ IV ONE (08:00)
--- NOTE | 2018-07-23 08:21 | PN ---
DATE: 07/23/2018 SUBJECTIVE: The patient remains intubated, on full ventilatory support. Failed weaning yesterday. No other events noted. OBJECTIVE: VITAL SIGNS: Blood pressure is 97/60, respirations 20, pulse 73, temperature 100.3. HEENT: Head is normocephalic. NECK: Supple. HEART: Regular rate. LUNGS: Show diminished breath sounds at the base. ABDOMEN: Soft, nontender to palpation without rebound or guarding. EXTREMITIES: Negative for clubbing, cyanosis, no edema. DERMATOLOGIC: No rashes. MUSCULOSKELETAL: No joint effusion. NEUROLOGIC: No change in exam. MEDICATIONS: Reviewed. LABORATORY DATA: Shows white count 14.1, hemoglobin 9.8, platelet count 139. Sodium 138, potassium 4.6, BUN 13, creatinine 1.06. IMAGING STUDY: Chest x-ray shows interstitial edema suggesting cardiopulmonary congestion. ASSESSMENT AND PLAN: 1. Nonoliguric acute kidney injury with a previous baseline creatinine of 0.9 mg/dL. Etiology of ac tolowa dee-ni' kidney injury is secondary to hemodynamics. The patient's renal function has been fluctuating, b ut overall improving. At this point, continue current treatment plans, supportive care, renally dose all medicines. Continue inotropic support, maintain MAP of 65. 2. Hypernatremia, improved. Continue to monitor. 3. Anemia. Monitor hemoglobin and hematocrit levels. 4. Mineral bone disorder. Monitor calcium and phosphorus levels. 5. Coronary artery disease, status post 3-vessel coronary artery bypass graft. Continue medical man agement. Continue inotropic support. Follow up CT surgery, cardiology. 6. Cardiogenic shock. The patient is being weaned off inotropic support. We will continue. Follow up with cardiology and CT surgery for further management. 7. Ventilator dependent respiratory failure. Vent settings and ABG was reviewed. Continue weaning per pulmonary. 8. Volume overload. The patient's chest x-ray shows evidence of interstitial edema secondary to con gestive heart failure. We will give the patient low dose diuretic therapy, monitor hemodynamics clos hardik. 9. Diabetes. Continue current insulin regimen. 8. History of hypertension. 9. Systemic inflammatory response syndrome. Continue medical management. Please note I spent over 30 minutes of critical care time with this patient. Dictated By: MARCO ANTONIO CANALES/DEYA Conf#: [id number] DID#: [id number] CC: SUZETTE SIMMONS MD; FREDIS FALLON MD; VANIA LAMB MD;*End*
[2018-07-23] MEDS: ASPIRIN 81 MG TAB NGT SCH (08:27)
[2018-07-23] MEDS: ENOXAPARIN 30 MG/0.3 ML SYG SC SCH (08:35)
[2018-07-23] MEDS: GUAIFENESIN LA 600 MG TABSR PO SCH ×2 (08:36→21:00)
--- NOTE | 2018-07-23 10:16 | CONS ---
Consult Date/Type/Reason Admit Date/Time Jul 11, 2018 at 04:15 Initial Consult Date 07/17/18 Type of Consult Pulmonary Requesting Provider: VANIA LAMB MD Date/Time of Note DATE: 07/23/18 TIME: 10:15 Subjective Patient failed several weaning trials. More comfortable this morning awake alert on fentanyl drip opening eyes and following simple commands. Minimal secretions. Started on Lasix. X-ray demonstrates mild pulmonary edema. Continues dobutamine drip. Objective Vital Signs Date Temp Pulse Resp B/P (MAP) Pulse Ox O2 O2 Flow FiO2 Time Delivery Rate 07/23/18 67 26 93 40 09:10 07/23/18 99.8 148/81 09:00 (103) 07/23/18 Mechanical 09:00 Ventilator Intake and Output 07/22/18 07/22/18 07/23/18 1515:00 23:00 07:00 IntakeIntake Total 846.25 ml 936.82 ml 1068.80 ml OutputOutput Total 422 ml 306 ml 347 ml BalanceBalance 424.25 ml 630.82 ml 721.80 ml Exam PHYSICAL EXAMINATION: GENERAL: Well-nourished, well-developed gentleman, comfortable at rest, no acute distress. VITAL SIGNS: As above NECK: Supple. No JVD or lymphadenopathy. CARDIAC: Sounds S1, S2. No added sounds or murmurs. CHEST: Diminished air entry bilaterally. ABDOMEN: Soft, nontender. No guarding or rebound. EXTREMITIES: No cyanosis, clubbing, or edema. NEUROLOGIC: Grossly intact. Vent Setting Ventilator Support Mode: AC Fraction of Inspired Oxygen pe: 40 Positive End Expiratory Pressu: 5.0 Results/Medications Result Diagram: 07/23/18 0426 07/23/18 0426 Results 24 hrs Laboratory Tests Test 07/22/18 11:04 07/22/18 12:03 07/22/18 12:54 07/22/18 14:10 Bedside Glucose 142 147 162 147 Test 07/22/18 14:55 07/22/18 15:56 07/22/18 17:12 07/22/18 17:54 Bedside Glucose 140 130 119 109 Test 07/22/18 18:53 07/22/18 19:57 07/22/18 20:56 07/22/18 22:09 Bedside Glucose 119 120 136 127 Test 07/22/18 23:59 07/23/18 01:51 07/23/18 03:55 07/23/18 04:26 Bedside Glucose 132 138 132 White Blood Count 14.1 H Red Blood Count 3.39 L Hemoglobin 9.8 L Hematocrit 29.7 L Mean Corpuscular 87.6 Volume Mean Corpuscular 28.9 L Hemoglobin Mean Corpuscular 33.0 Hemoglobin Concen t Red Cell 13.5 Distribution Width Platelet Count 139 L Mean Platelet 10.7 H Volume Immature 0.600 H Granulocytes % Neutrophils % 82.0 H Lymphocytes % 10.2 L Monocytes % 5.5 Eosinophils % 1.6 Basophils % 0.1 Nucleated Red 0.0 Blood Cells % Immature 0.080 H Granulocytes # Neutrophils # 11.6 H Lymphocytes # 1.4 Monocytes # 0.8 Eosinophils # 0.2 Basophils # 0.0 Nucleated Red 0.0 Blood Cells # Sodium Level 138 Potassium Level 4.6 Chloride Level 111 H Carbon Dioxide 20 L Level Anion Gap 7 Blood Urea 13 Nitrogen Creatinine 1.06 Est Glomerular > 60 Filtrat Rate mL/min Glucose Level 131 # Calcium Level 9.6 Phosphorus Level 3.7 Magnesium Level 2.0 Test 07/23/18 05:55 07/23/18 07:00 07/23/18 08:07 07/23/18 08:55 Bedside Glucose 127 118 127 Blood Gas Blood arterial Specimen Source Arterial Blood 07/23/2018 7:07:5 Date Drawn 6 AM Arterial Blood pH 7.449 (Temp corrected) Arterial Blood 27.1 L pCO2 (Temp correct) Arterial Blood 66.6 L pO2 (Temp corrected) Arterial Blood 18.4 L HCO3 Arterial Blood -4.4 L Base Excess Arterial Blood 92.9 L Oxygen Saturation Tima Test N/A Arterial Blood A-Line Gas Puncture Site Arterial 0.3 Blood Carboxyhemo globin Arterial Blood 0.1 Methemoglobin Blood Gas A-a O2 187.4 H Differential Oxyhemoglobin 92.5 L Percent Blood Gas 37.0 Temperature Blood Gas 14.0 Respiration Rate Blood Gas Actual 19 Respiration Rate Blood Gas VENT - AC Modality FiO2 40.0 Blood Gas Tidal 500.0 Volume Blood Gas Low 5.0 PEEP Setting Blood Gas TM Notified Whom Blood Gas 07/23/2018 7:31:1 Notified Time 5 AM Medications Current Medications IV Flush (NS 3 ml) 3 ml PER PROTOCOL IV ; Start 2/16/19 at 05:30 Ondansetron HCl (Zofran Inj) 4 mg Q6H PRN IV NAUSEA/VOMITING Last administered on 07/18/18 08:46; Admin Dose 4 MG; Start 07/11/18 at 05:30 Nitroglycerin (Nitroglycerin (Sl Tab) 0.4 Mg) 1 tab Q5M PRN SL .CHEST PAIN; Start 07/11/18 at 05:30 Acetaminophen (Tylenol Tab) 650 mg Q6H PRN PO .PAIN 1-3 OR TEMP Last administered on 07/20/18 07:42; Admin Dose 650 MG; Start 07/11/18 at 05:30 Atorvastatin Calcium (Lipitor) 40 mg HS PO Last administered on 07/22/18 20:09; Admin Dose 40 MG; Start 07/11/18 at 21:00 Simethicone (Mylicon) 80 mg QID PRN GTB DISTENSION/GAS/BLOATING Last administered on 07/16/18 17:28; Admin Dose 80 MG; Start 07/13/18 at 12:30 Guaifenesin (Mucinex) 600 mg BID PO Last administered on 07/20/18 08:40; Admin Dose 600 MG; Start 07/15/18 at 10:30 Sodium Chloride (Deep Sea) 2 spray BID PRN NASAL congestion; Start 07/15/18 at 10:30 Milrinone Lactate 100 ml @ 6.975 mls/ hr TITRATE IV Last administered on 07/20/18 22:18; Admin Dose 6.975 MLS/HR; Start 07/20/18 at 21:00 Propofol 100 ml @ 1.86 mls/hr Q12H PRN IV AGITATION/ANXIETY Last administered on 07/21/18 15:55; Admin Dose 3.72 MLS/HR; Start 07/20/18 at 21:00 Diagnostic Test (Pha) (Accu-Chek) 1 ea Q1H XX Last administered on 07/23/18 05:56; Admin Dose 1 EA; Start 07/20/18 at 21:00 Insulin Human Regular 100 unit/ Sodium Chloride 100 ml @ 0 mls/hr PER PROTOCOL IV Last administered on 07/22/18 12:40; Admin Dose 5 MLS/HR; Start 07/20/18 at 21:00 Miscellaneous Information (* Miscellaneous Pharmacy Order) Treatment of Hypoglycemia: 1.BG 51... Per protocol XX ; Start 07/20/18 at 21:00 Dextrose (D50w Syringe) 25 ml Q15M PRN IV .DECREASED GLUCOSE; Start 07/20/18 at 21:00 Dextrose (D50w Syringe) 50 ml Q15M PRN IV .DECREASED GLUCOSE; Start 07/20/18 at 21:00 Dobutamine HCl/ Dextrose 250 ml @ 9.3 mls/hr TITRATE IV Last administered on 07/22/18at 19:16; Admin Dose 18.6 MLS/HR; Start 07/20/18 at 21:00 Nicardipine HCl 200 ml @ 50 mls/hr TITRATE PRN IV ANESTHESIA; Start 07/20/18 at 21:00 Nitroglycerin/ Dextrose 250 ml @ 1.5 mls/hr TITRATE IV Last administered on 07/20/18at 22:33; Admin Dose 30 MLS/HR; Start 07/20/18 at 22:30 Potassium Chloride 50 ml @ 50 mls/hr SEE DIRECTION PRN IVPB K+ LEVEL Last administered on 07/21/18at 13:44; Admin Dose 50 MLS/HR; Start 07/20/18 at 23:30 Magnesium Sulfate/ Dextrose 100 ml @ 100 mls/hr PRN PRN IVPB PENDING LAB VALUE; Start 07/20/18 at 23:30 Midazolam HCl (Versed) 2 mg Q2H PRN IV AGITATION; Start 07/21/18 at 04:30 Acetaminophen (Tylenol Supp) 650 mg Q4H PRN ID MILD PAIN(1-3) OR TEMP>38C Last administered on 07/22/18at 16:17; Admin Dose 650 MG; Start 07/21/18 at 04:30 Albumin Human 250 ml @ 500 mls/hr PRN PRN IV CVP< 8, OR SBP<90 Last administered on 07/22/18at 21:42; Admin Dose 500 MLS/HR; Start 07/21/18 at 08:00 Acetaminophen (Tylenol Liquid) 650 mg Q6 PRN NGT MILD PAIN(1-3)OR ELEVATED TEMP Last administered on 07/23/18at 06:10; Admin Dose 650 MG; Start 07/21/18 at 09:00 Pantoprazole (Protonix Iv) 40 mg DAILY@06 IV Last administered on 07/23/18 05:27; Admin Dose 40 MG; Start 07/22/18 at 06:00 Piperacillin Sod/ Tazobactam Sod 100 ml @ 200 mls/hr Q6 IVPB Last administered on 07/23/18 05:27; Admin Dose 200 MLS/HR; Start 07/21/18 at 12:00 Fentanyl 100 ml @ 2.5 mls/hr TITRATE IV Last administered on 07/23/18 05:35; Admin Dose 5 MLS/HR; Start 07/21/18 at 14:00 Norepinephrine 250 ml @ 1.875 mls/ hr TITRATE IV Last administered on 07/23/18 07:05; Admin Dose 1.875 MLS/HR; Start 07/21/18 at 13:00 Midazolam HCl 50 ml @ 1 mls/hr TITRATE IV Last administered on 07/22/18 05:03; Admin Dose 2 MLS/HR; Start 07/21/18 at 17:00 Potassium Chloride 20 meq/ Calcium Chloride 1 gm/Dextrose/ Sodium Chloride 1,020 ml @ 60 mls/hr Q17H IV Last administered on 07/22/18at 21:41; Admin Dose 60 MLS/HR; Start 07/22/18 at 03:30 Morphine Sulfate (morphine) 1 mg Q4 PRN IV PAIN LEVEL 1-5; Start 07/22/18 at 11:30 Morphine Sulfate (morphine) 2 mg Q4 PRN IV PAIN LEVEL 6-10 Last administered on 07/22/18 12:00; Admin Dose 2 MG; Start 07/22/18 at 11:30 Aspirin (Aspirin) 81 mg DAILY NGT Last administered on 07/23/18 08:27; Admin Dose 81 MG; Start 07/23/18 at 09:00 Enoxaparin Sodium (Lovenox) 30 mg DAILY SC Last administered on 07/23/18 08:35; Admin Dose 30 MG; Start 07/23/18 at 09:00 Assessment/Plan Hospital Course (Demo Recall) IMPRESSION 1. Multivessel coronary artery disease, status post coronary artery bypass graft, postoperative day 2. 2. Prior significant tobacco history, likely underlying chronic obstructive pulmonary disease (COPD). 3. Diabetes mellitus, poorly controlled, glycemic management prior to surgery. 4. Status post thymectomy. 5. Cardiogenic shock requiring dobutamine support. Plan 1. Continue assist-control (AC) mechanical ventilation, having failed continuous positive airway pressure (CPAP) trial this morning. 2. Continue chest tube and postoperative surgical management, per cardiothor acic surgery. Currently on dobutamine and milrinone. Agree with low-dose Lasix. 3. Add bronchodilators. We will consider steroids if respiratory status remains tenuous. 4. Pre-extubation cuff leak test to exclude laryngeal edema. 5. Deep venous thrombosis (DVT) and gastrointestinal (GI) prophylaxis. Critical care time 40 minutes. AHMET TAVAREZ MD, [facility] Jul 23, 2018 10:16
[2018-07-23] MEDS ORDERED: IPRATROPIUM (HFA) 12.9 GM INHALER INH PRN (10:30)
[2018-07-23] MEDS: INSULIN HUMAN REGULAR 100 UNIT in SOD CHLORIDE 0.9% 99 ML IV SCH (10:32)
[2018-07-23] MEDS ORDERED: DEXMEDETOMIDINE HCL 200 MCG in SOD CHLORIDE 0.9% 48 ML IV SCH (11:30)
--- NOTE | 2018-07-23 11:36 | PN ---
Date/Time of Note Date/Time of Note DATE: 07/23/18 TIME: 11:35 Assessment/Plan Lines/Catheters IV Catheter Type (from Nrsg): A Line Roa in Place (from Nrsg): Yes Assessment/Plan Assessment/Plan Status post coronary artery bypass grafting Hemodynamically stable woke up Follows command Minimal inotropic support Failed weaning from the vent Will wean dobutamine tonight Try to wean for extubation Subjective 24 Hr Interval Summary Constitutional: improved Pain Control: mild Exam/Review of Systems Vital Signs Vitals Vital Signs Date Temp Pulse Resp B/P (MAP) Pulse Ox O2 O2 Flow FiO2 Time Delivery Rate 07/23/18 99.8 69 17 111/67 93 11:00 (82) 07/23/18 Mechanical 11:00 Ventilator 07/23/18 30 10:00 Intake and Output 07/22/18 07/22/18 07/23/18 1515:00 23:00 07:00 IntakeIntake Total 846.25 ml 936.82 ml 1068.80 ml OutputOutput Total 422 ml 306 ml 347 ml BalanceBalance 424.25 ml 630.82 ml 721.80 ml Exam Eyes: nl conjunctiva, EOMI, nl lids, nl sclera ENMT: nl external ears & nose, nl lips & teeth, nl nasal mucosa & septum, mucosa pink and moist Neck: supple, non-tender Respiratory: clear to auscultation, normal air movement Cardiovascular: regular rate and rhythm, nl pulses Gastrointestinal: soft, nl liver, spleen, non-tender Results Result Diagram: 07/23/1842507/23/18425 VANIA LAMB MD Jul 23, 2018 11:36
--- NOTE | 2018-07-23 11:37 | PN ---
Date/Time of Note Date/Time of Note DATE: 07/23/18 TIME: 11:36 Objective Vitals Vital Signs Date Temp Pulse Resp B/P (MAP) Pulse Ox O2 O2 Flow FiO2 Time Delivery Rate 07/23/18 99.8 69 17 111/67 93 11:00 (82) 07/23/18 Mechanical 11:00 Ventilator 07/23/18 30 10:00 Intake and Output 07/22/18 07/22/18 07/23/18 1515:00 23:00 07:00 IntakeIntake Total 846.25 ml 936.82 ml 1068.80 ml OutputOutput Total 422 ml 306 ml 347 ml BalanceBalance 424.25 ml 630.82 ml 721.80 ml Results Result Diagram: 07/23/1842507/23/18425 Medications Medications Current Medications IV Flush (NS 3 ml) 3 ml PER PROTOCOL IV ; Start 07/11/18 at 05:30 Ondansetron HCl (Zofran Inj) 4 mg Q6H PRN IV NAUSEA/VOMITING Last administered on 07/18/18 08:46; Admin Dose 4 MG; Start 07/11/18 at 05:30 Nitroglycerin (Nitroglycerin (Sl Tab) 0.4 Mg) 1 tab Q5M PRN SL .CHEST PAIN; Start 07/11/18 at 05:30 Acetaminophen (Tylenol Tab) 650 mg Q6H PRN PO .PAIN 1-3 OR TEMP Last administered on 07/20/18at 07:42; Admin Dose 650 MG; Start 07/11/18 at 05:30 Atorvastatin Calcium (Lipitor) 40 mg HS PO Last administered on 07/22/18at 20:0 9; Admin Dose 40 MG; Start 07/11/18 at 21:00 Simethicone (Mylicon) 80 mg QID PRN GTB DISTENSION/GAS/BLOATING Last administered on 07/16/18 17:28; Admin Dose 80 MG; Start 07/13/18 at 12:30 Guaifenesin (Mucinex) 600 mg BID PO Last administered on 07/20/18 08:40; Admin Dose 600 MG; Start 07/15/18 at 10:30 Sodium Chloride (Deep Sea) 2 spray BID PRN NASAL congestion; Start 07/15/18 at 10:30 Milrinone Lactate 100 ml @ 6.975 mls/ hr TITRATE IV Last administered on 07/20/18 22:18; Admin Dose 6.975 MLS/HR; Start 07/20/18 at 21:00 Propofol 100 ml @ 1.86 mls/hr Q12H PRN IV AGITATION/ANXIETY Last administered on 07/21/18 15:55; Admin Dose 3.72 MLS/HR; Start 07/20/18 at 21:00 Diagnostic Test (Pha) (Accu-Chek) 1 ea Q1H XX Last administered on 07/23/18 05:56; Admin Dose 1 EA; Start 07/20/18 at 21:00 Insulin Human Regular 100 unit/ Sodium Chloride 100 ml @ 0 mls/hr PER PROTOCOL IV Last administered on 07/23/18 10:32; Admin Dose 5 MLS/HR; Start 07/20/18 at 21:00 Miscellaneous Information (* Miscellaneous Pharmacy Order) Treatment of Hypoglycemia: 1.BG 51... Per protocol XX ; Start 07/20/18 at 21:00 Dextrose (D50w Syringe) 25 ml Q15M PRN IV .DECREASED GLUCOSE; Start 07/20/18 at 21:00 Dextrose (D50w Syringe) 50 ml Q15M PRN IV .DECREASED GLUCOSE; Start 07/20/18 at 21:00 Dobutamine HCl/ Dextrose 250 ml @ 9.3 mls/hr TITRATE IV Last administered on 07/22/18 19:16; Admin Dose 18.6 MLS/HR; Start 07/20/18 at 21:00 Nicardipine HCl 200 ml @ 50 mls/hr TITRATE PRN IV ANESTHESIA; Start 07/20/18 at 21:00 Nitroglycerin/ Dextrose 250 ml @ 1.5 mls/hr TITRATE IV Last administered on at 22:33; Admin Dose 30 MLS/HR; Start 07/20/18 at 22:30 Potassium Chloride 50 ml @ 50 mls/hr SEE DIRECTION PRN IVPB K+ LEVEL Last administered on 07/21/18at 13:44; Admin Dose 50 MLS/HR; Start 07/20/18 at 23:30 Magnesium Sulfate/ Dextrose 100 ml @ 100 mls/hr PRN PRN IVPB PENDING LAB VALUE; Start 07/20/18 at 23:30 Midazolam HCl (Versed) 2 mg Q2H PRN IV AGITATION; Start 07/21/18 at 04:30 Acetaminophen (Tylenol Supp) [address] MILD PAIN(1-3) OR TEMP>38C Last administered on 07/22/18 16:17; Admin Dose 650 MG; Start 07/21/18 at 04:30 Albumin Human 250 ml @ 500 mls/hr PRN PRN IV CVP< 8, OR SBP<90 Last administered on 07/22/18 21:42; Admin Dose 500 MLS/HR; Start 07/21/18 at 08:00 Acetaminophen (Tylenol Liquid) 650 mg Q6 PRN NGT MILD PAIN(1-3)OR ELEVATED TEMP Last administered on 07/23/18 06:10; Admin Dose 650 MG; Start 07/21/18 at 09:00 Pantoprazole (Protonix Iv) 40 mg DAILY@06 IV Last administered on 07/23/18 05:27; Admin Dose 40 MG; Start 07/22/18 at 06:00 Piperacillin Sod/ Tazobactam Sod 100 ml @ 200 mls/hr Q6 IVPB Last administered on 07/23/18 05:27; Admin Dose 200 MLS/HR; Start 07/21/18 at 12:00 Fentanyl 100 ml @ 2.5 mls/hr TITRATE IV Last administered on 07/23/18 05:35; Admin Dose 5 MLS/HR; Start 07/21/18 at 14:00 Norepinephrine 250 ml @ 1.875 mls/ hr TITRATE IV Last administered on 07/23/18 07:05; Admin Dose 1.875 MLS/HR; Start 07/21/18 at 13:00 Midazolam HCl 50 ml @ 1 mls/hr TITRATE IV Last administered on 07/22/18 05:03; Admin Dose 2 MLS/HR; Start 07/21/18 at 17:00 Potassium Chloride 20 meq/ Calcium Chloride 1 gm/Dextrose/ Sodium Chloride 1,020 ml @ 60 mls/hr Q17H IV Last administered on 07/22/18 21:41; Admin Dose 60 MLS/HR; Start 07/22/18 at 03:30 Morphine Sulfate (morphine) 1 mg Q4 PRN IV PAIN LEVEL 1-5; Start 07/22/18 at 11:30 Morphine Sulfate (morphine) 2 mg Q4 PRN IV PAIN LEVEL 6-10 Last administered on 07/22/18at 12:00; Admin Dose 2 MG; Start 07/22/18 at 11:30 Aspirin (Aspirin) 81 mg DAILY NGT Last administered on 07/23/18at 08:27; Admin Dose 81 MG; Start 07/23/18 at 09:00 Enoxaparin Sodium (Lovenox) 30 mg DAILY SC Last administered on 07/23/18at 08:35; Admin Dose 30 MG; Start 07/23/18 at 09:00 Albuterol (Ventolin Hfa) 4 puff Q6H RESP THERAPY INH ; Start 07/23/18 at 10:30 Ipratropium [place] (Atrovent Hfa) 4 puff Q6H RESP THERAPY PRN INH SHORTNESS OF BREATH; Start 07/23/18 at 10:30 Dexmedetomidine HCl 200 mcg/ Sodium Chloride 50 ml @ 3.1 mls/hr TITRATE IV ; Start 07/23/18 at 11:30 VTE Prophylaxis Risk score (from Ns)>0 risk: 17 SCD applied (from Ns): Yes Lines/Catheters IV Catheter Type: Roa in Place: No Assessment/Plan Hospital Course Subjective intubated still, but alert Objective Physical exam General: Patient is laying in bed, intubated Mentation: Patient is alert but not fully oriented Head: Normocephalic atraumatic Eyes: EOMI, pupils reactive to light Neck: Supple, nontender, midline Respiratory: Clear to auscultation bilaterally Cardiovascular: regular rate, no obvious murmurs Gastrointestinal: non-tender to palpation, bowel sounds heard. Neurological: Moves all extremities spontaneously Skin: surgical site bandaged, CDI, Assessment/Plan CAD with unstable angina s/p 3V CABG 07/20/18 - CT surgery on board and appreciate consultation - Continue cardiac meds with aspirin, statin, metoprolol, lisinopril when able - Plavix and aspirin to restart when ok with cards/CT surgery acute hypoxic resp distress -2/2 to above CABG -titrate off when able hypotension -2/2 CABG -titrate pressors as needed fever/white count -blood cultures done -still cont empiric abx Uncontrolled diabetes - A1c at OSH noted to be 12.3 - Diabetic education consultation appreciated - Bo and Michaellog on board and adjustments made for better control - Upon d/c will give Metformin/Jardiance, Basaglar and Novolog- per DM educator recommendation Hypertension - Continue current medications Cough with congestion - Mucinex for relief - Nasal saline PRN Disposition over 40 minutes of critical care time spent on this evaluation -cont ICU stay -pulm to extubate when ready FREDIS FALLON Jul 23, 2018 11:37
[2018-07-23] MEDS: ALBUTEROL HFA 8 GM INHALER INH SCH ×2 (13:02→15:20)
[2018-07-23] MEDS: POTASSIUM CHLORIDE IV SCH (14:45)
[2018-07-23] MEDS: CALCIUM CHLORIDE IV SCH (14:45)
[2018-07-23] MEDS: [UNRECOGNIZED DRUG - OTHER] IV SCH (14:45)
--- NOTE | 2018-07-23 15:50 | CONS ---
Assessment/Plan Assessment/Plan Hospital Course (Demo Recall) No changes overnight patient's failed weaning trials this morning and currently back on CPAP he still having low-grade fevers with a T-max of 100.3 T-current 99.2 WBC today 14.1 H&H 9.8 and 29.7 platelets 139 neutrophils 82 BUN 13 creatinine 1.06. He is off pressors Microbiology: All cultures have been negative Indwelling: Endotracheal tube NG tube right IJ [place], chest tubes, Roa, left radial A-line Antimicrobials: Zosyn Physical examination: Well-developed elderly man who is awake in no distress. Head atraumatic normocephalic. Sclera nonicteric. Buccal mucosa dry. Neck is supple, chest rise symmetrical, breath sounds diminished bases. Heart: S1-S2. Abdomen, distended, soft, bowel sounds present. Extremities with trace edema. Assessment: 1. Systemic inflammatory response syndrome with postoperative fevers, likely pulmonary source 2. Multivessel coronary artery disease, status post CABG 3. Diabetes 4. Status post thymectomy 5. Acute kidney insufficiency Plan: Patient is clinically stable, still with ongoing low-grade fevers, all cultures negative, we will will send sputum for culture, add vancomycin, continue Zosyn for now, recommend discontinue lines as soon as possible Consultation Date/Type/Reason Admit Date/Time Jul 11, 2018 at 04:15 Initial Consult Date 07/17/18 Type of Consult id Requesting Provider: VANIA LAMB MD Date/Time of Note DATE: 07/23/18 TIME: 15:48 Exam/Review of Systems Exam Vitals Vital Signs Date Temp Pulse Resp B/P (MAP) Pulse Ox O2 O2 Flow FiO2 Time Delivery Rate 07/23/18 63 31 125/82 96 Mechanical 15:00 (96) Ventilator 07/23/18 99.2 15:00 07/23/18 30 12:44 Intake and Output 07/22/18 07/22/18 07/23/18 1515:00 23:00 07:00 IntakeIntake Total 846.25 ml 936.82 ml 1068.80 ml OutputOutput Total 422 ml 306 ml 347 ml BalanceBalance 424.25 ml 630.82 ml 721.80 ml Results Result Diagram: 07/23/18 0426 07/23/18 0426 Results 24hrs Laboratory Tests Test 07/22/18 15:56 07/22/18 17:12 07/22/18 17:54 07/22/18 18:53 Bedside Glucose 130 119 109 119 Test 07/22/18 19:57 07/22/18 20:56 07/22/18 22:09 07/22/18 23:59 Bedside Glucose 120 136 127 132 Test 07/23/18 01:51 07/23/18 03:55 07/23/18 04:26 07/23/18 05:55 Bedside Glucose 138 132 127 White Blood Count 14.1 H Red Blood Count 3.39 L Hemoglobin 9.8 L Hematocrit 29.7 L Mean Corpuscular 87.6 Volume Mean Corpuscular 28.9 L Hemoglobin Mean Corpuscular 33.0 Hemoglobin Concen t Red Cell 13.5 Distribution Width Platelet Count 139 L Mean Platelet 10.7 H Volume Immature 0.600 H Granulocytes % Neutrophils % 82.0 H Lymphocytes % 10.2 L Monocytes % 5.5 Eosinophils % 1.6 Basophils % 0.1 Nucleated Red 0.0 Blood Cells % Immature 0.080 H Granulocytes # Neutrophils # 11.6 H Lymphocytes # 1.4 Monocytes # 0.8 Eosinophils # 0.2 Basophils # 0.0 Nucleated Red 0.0 Blood Cells # Sodium Level 138 Potassium Level 4.6 Chloride Level 111 H Carbon Dioxide 20 L Level Anion Gap 7 Blood Urea 13 Nitrogen Creatinine 1.06 Est Glomerular > 60 Filtrat Rate mL/min Glucose Level 131 # Calcium Level 9.6 Phosphorus Level 3.7 Magnesium Level 2.0 Test 07/23/18 07:00 07/23/18 08:07 07/23/18 08:55 07/23/18 10:01 Blood Gas Blood arterial Specimen Source Arterial Blood 07/23/2018 7:07:5 Date Drawn 6 AM Arterial Blood pH 7.449 (Temp corrected) Arterial Blood 27.1 L pCO2 (Temp correct) Arterial Blood 66.6 L pO2 (Temp corrected) Arterial Blood 18.4 L HCO3 Arterial Blood -4.4 L Base Excess Arterial Blood 92.9 L Oxygen Saturation Tima Test N/A Arterial Blood A-Line Gas Puncture Site Arterial 0.3 Blood Carboxyhemo globin Arterial Blood 0.1 Methemoglobin Blood Gas A-a O2 187.4 H Differential Oxyhemoglobin 92.5 L Percent Blood Gas 37.0 Temperature Blood Gas 14.0 Respiration Rate Blood Gas Actual 19 Respiration Rate Blood Gas VENT - AC Modality FiO2 40.0 Blood Gas Tidal 500.0 Volume Blood Gas Low 5.0 PEEP Setting Blood Gas TM Notified Whom Blood Gas 07/23/2018 7:31:1 Notified Time 5 AM Bedside Glucose 118 127 128 Test 07/23/18 11:00 07/23/18 11:52 07/23/18 13:19 07/23/18 13:52 Bedside Glucose 130 119 147 123 Test 07/23/18 15:00 Bedside Glucose 112 Medications Medication Current Medications IV Flush (NS 3 ml) 3 ml PER PROTOCOL IV ; Start 07/11/18 at 05:30 Ondansetron HCl (Zofran Inj) 4 mg Q6H PRN IV NAUSEA/VOMITING Last administered on 07/18/18 08:46; Admin Dose 4 MG; Start 07/11/18 at 05:30 Nitroglycerin (Nitroglycerin (Sl Tab) 0.4 Mg) 1 tab Q5M PRN SL .CHEST PAIN; Start 07/11/18 at 05:30 Acetaminophen (Tylenol Tab) 650 mg Q6H PRN PO .PAIN 1-3 OR TEMP Last administered on 07/20/18 07:42; Admin Dose 650 MG; Start 07/11/18 at 05:30 Atorvastatin Calcium (Lipitor) 40 mg HS PO Last administered on 07/22/18 20:09; Admin Dose 40 MG; Start 07/11/18 at 21:00 Simethicone (Mylicon) 80 mg QID PRN GTB DISTENSION/GAS/BLOATING Last administered on 07/16/18 17:28; Admin Dose 80 MG; Start 07/13/18 at 12:30 Guaifenesin (Mucinex) 600 mg BID PO Last administered on 07/20/18 08:40; Admin Dose 600 MG; Start 07/15/18 at 10:30 Sodium Chloride (Deep Sea) 2 spray BID PRN NASAL congestion; Start 07/15/18 at 10:30 Milrinone Lactate 100 ml @ 6.975 mls/ hr TITRATE IV Last administered on 07/20/18 22:18; Admin Dose 6.975 MLS/HR; Start 07/20/18 at 21:00 Propofol 100 ml @ 1.86 mls/hr Q12H PRN IV AGITATION/ANXIETY Last administered on 07/21/18at 15:55; Admin Dose 3.72 MLS/HR; Start 07/20/18 at 21:00 Diagnostic Test (Pha) (Accu-Chek) 1 ea Q1H XX Last administered on 07/23/18 05:56; Admin Dose 1 EA; Start 07/20/18 at 21:00 Insulin Human Regular 100 unit/ Sodium Chloride 100 ml @ 0 mls/hr PER PROTOCOL IV Last administered on 07/23/18at 10:32; Admin Dose 5 MLS/HR; Start 07/20/18 at 21:00 Miscellaneous Information (* Miscellaneous Pharmacy Order) Treatment of Hypoglycemia: 1.BG 51... Per protocol XX ; Start 07/20/18 at 21:00 Dextrose (D50w Syringe) 25 ml Q15M PRN IV .DECREASED GLUCOSE; Start 07/20/18 at 21:00 Dextrose (D50w Syringe) 50 ml Q15M PRN IV .DECREASED GLUCOSE; Start 07/20/18 at 21:00 Dobutamine HCl/ Dextrose 250 ml @ 9.3 mls/hr TITRATE IV Last administered on 07/22/18at 19:16; Admin Dose 18.6 MLS/HR; Start 07/20/18 at 21:00 Nicardipine HCl 200 ml @ 50 mls/hr TITRATE PRN IV ANESTHESIA; Start 07/20/18 at 21:00 Nitroglycerin/ Dextrose 250 ml @ 1.5 mls/hr TITRATE IV Last administered on 07/20/18at 22:33; Admin Dose 30 MLS/HR; Start 07/20/18 at 22:30 Potassium Chloride 50 ml @ 50 mls/hr SEE DIRECTION PRN IVPB K+ LEVEL Last administered on 07/21/18at 13:44; Admin Dose 50 MLS/HR; Start 07/20/18 at 23:30 Magnesium Sulfate/ Dextrose 100 ml @ 100 mls/hr PRN PRN IVPB PENDING LAB VALUE; Start 07/20/18 at 23:30 Midazolam HCl (Versed) 2 mg Q2H PRN IV AGITATION; Start 07/21/18 at 04:30 Acetaminophen (Tylenol Supp) 650 mg Q4H PRN ID MILD PAIN(1-3) OR TEMP>38C Last administered on 07/22/18 16:17; Admin Dose 650 MG; Start 07/21/18 at 04:30 Albumin Human 250 ml @ 500 mls/hr PRN PRN IV CVP< 8, OR SBP<90 Last administered on 07/22/18 21:42; Admin Dose 500 MLS/HR; Start 07/21/18 at 08:00 Acetaminophen (Tylenol Liquid) 650 mg Q6 PRN NGT MILD PAIN(1-3)OR ELEVATED TEMP Last administered on 07/23/18 06:10; Admin Dose 650 MG; Start 07/21/18 at 09:00 Pantoprazole (Protonix Iv) 40 mg DAILY@06 IV Last administered on 07/23/18 05:27; Admin Dose 40 MG; Start 07/22/18 at 06:00 Piperacillin Sod/ Tazobactam Sod 100 ml @ 200 mls/hr Q6 IVPB Last administered on 07/23/18 12:26; Admin Dose 200 MLS/HR; Start 07/21/18 at 12:00 Fentanyl 100 ml @ 2.5 mls/hr TITRATE IV Last administered on 07/23/18 05:35; Admin Dose 5 MLS/HR; Start 07/21/18 at 14:00 Norepinephrine 250 ml @ 1.875 mls/ hr TITRATE IV Last administered on 07/23/18 07:05; Admin Dose 1.875 MLS/HR; Start 07/21/18 at 13:00 Midazolam HCl 50 ml @ 1 mls/hr TITRATE IV Last administered on 07/22/18 05:03; Admin Dose 2 MLS/HR; Start 07/21/18 at 17:00 Potassium Chloride 20 meq/ Calcium Chloride 1 gm/Dextrose/ Sodium Chloride 1,020 ml @ 60 mls/hr Q17H IV Last administered on 07/23/18 14:45; Admin Dose 60 MLS/HR; Start 07/22/18 at 03:30 Morphine Sulfate (morphine) 1 mg Q4 PRN IV PAIN LEVEL 1-5; Start 07/22/18 at 11:30 Morphine Sulfate (morphine) 2 mg Q4 PRN IV PAIN LEVEL 6-10 Last administered on 07/22/18 12:00; Admin Dose 2 MG; Start 07/22/18 at 11:30 Aspirin (Aspirin) 81 mg DAILY NGT Last administered on 07/23/18 08:27; Admin Dose 81 MG; Start 07/23/18 at 09:00 Enoxaparin Sodium (Lovenox) 30 mg DAILY SC Last administered on 07/23/18 08:3 5; Admin Dose 30 MG; Start 07/23/18 at 09:00 Albuterol (Ventolin Hfa) 4 puff Q6H RESP THERAPY INH Last administered on 07/23/18at 15:20; Admin Dose 4 PUFF; Start 07/23/18 at 10:30 Ipratropium [place] (Atrovent Hfa) 4 puff Q6H RESP THERAPY PRN INH SHORTNESS OF BREATH; Start 07/23/18 at 10:30 Dexmedetomidine HCl 200 mcg/ Sodium Chloride 50 ml @ 3.1 mls/hr TITRATE IV Last administered on 07/23/18at 13:21; Admin Dose 3.1 MLS/HR; Start 07/23/18 at 11:30 KATHY LOU CLIENT SERVICE COORDINATOR Jul 23, 2018 15:50
[2018-07-23] MEDS ORDERED: VANCOMYCIN IV PER PHARMACY XX SCH (16:00)
[2018-07-23] MEDS: ACETAMINOPHEN 650 MG SUPP PR PRN (17:29)
[2018-07-23] MEDS ORDERED: VANCOMYCIN HCL 1.25 GM in SOD CHLORIDE 0.9% 250 ML IVPB ONE (18:00)
[2018-07-23] MEDS: morphine 2 MG INJ IV PRN ×2 (19:39→23:17)
[2018-07-23] MEDS: NITROGLYCERIN 50 MG/D5W (PMX) 250 ML IV SCH (20:02)
[2018-07-23] MEDS: ALBUTEROL/IPRATROPIUM (NEB) 3 ML AMP HHN PRN (21:00)
[2018-07-23] MEDS: ATORVASTATIN 40 MG TAB PO SCH (21:00)
[2018-07-24] VITALS (52 sets, daily range): BP systolic 110–189; BP diastolic 52–84; PULSE 67–87; RESP 16–39; TEMP 99
[2018-07-24] MEDS: NITROGLYCERIN 50 MG/D5W (PMX) 250 ML IV SCH ×3 (00:56→07:33)
[2018-07-24] MEDS: ACCU-CHEK XX SCH ×24 (00:56→23:17)
[2018-07-24] MEDS: ALBUTEROL/IPRATROPIUM (NEB) 3 ML AMP HHN SCH ×4 (01:17→21:23)
[2018-07-24] MEDS: PIPER-TAZO 3.375 GM IV (PMX) 100 ML IVPB SCH ×3 (05:36→17:37)
[2018-07-24] MEDS: PANTOPRAZOLE 40 MG INJ IV SCH (05:36)
[2018-07-24] MEDS: VANCOMYCIN 750 MG (PMX) 250 ML IVPB SCH ×2 (06:13→18:11)
[2018-07-24] MEDS: CALCIUM CHLORIDE IV SCH (06:16)
[2018-07-24] MEDS: [UNRECOGNIZED DRUG - OTHER] IV SCH (06:16)
[2018-07-24] MEDS: POTASSIUM CHLORIDE IV SCH (06:16)
[2018-07-24] MEDS ORDERED: D5-0.2 NACL + KCL 20 MEQ 1,000 ML IV SCH (07:00)
--- NOTE | 2018-07-24 08:25 | PN ---
DATE: 07/24/2018 SUBJECTIVE: The patient was extubated yesterday. The patient overnight; however, starting to develo p more tachypnea, more shortness of breath. Urinary output has been marginal. No other acute events noted. OBJECTIVE: VITAL SIGNS: Blood pressure is 154/65, respirations 20, pulse 73, temperature 99.0. HEENT: Head is normocephalic. NECK: Supple, positive JVD. HEART: Regular rate. LUNGS: Show diminished breath sounds at the base. ABDOMEN: Soft, nontender to palpation. No rebound or guarding. EXTREMITIES: Negative for clubbing, cyanosis, no edema. DERMATOLOGIC: No rashes. MUSCULOSKELETAL: No joint effusions. NEUROLOGIC: No change in exam. MEDICATIONS: The patient's medications have been reviewed. LABORATORY DATA: Shows white count 14.4, hemoglobin 10.2, platelet count is 130. Sodium 137, potass ium 4.1, BUN 20, creatinine 1.24. The patient's ABG was reviewed. IMAGING: Chest x-ray was reviewed, showed evidence of interstitial edema. Heart cardiopulmonary con gestion. ASSESSMENT AND PLAN: 1. Nonoliguric acute kidney injury with previous baseline creatinine of 0.9 mg/dL. Etiology of acut e kidney injury is secondary to hemodynamics. The patient's renal function has been fluctuating but overall stable. Continue current treatment plans, supportive care, renally dose all meds. Continue diuretic therapy. We will monitor electrolytes and renal function closely. 2. Acute heart failure. The patient is volume overloaded. Will start Lasix 40 mg IV daily, monitor I's and O's closely. 3. Anemia. Continue to monitor hemoglobin and hematocrit levels. 4. Mineral bone disorder. Continue to monitor calcium and phosphorus levels. 5. Hypernatremia, improved. Continue to monitor. 6. Coronary artery disease, status post 3-vessel CABG. Continue medical management. Follow up with CT surgery. 7. Status post cardiogenic shock. Continue diuretic therapy as stated above, the patient is current ly off inotropic support. 8. Respiratory failure. The patient is status post extubation. Continue to monitor. Follow up wit h pulmonary. 9. Diabetes. Continue current insulin regimen. 10. Hypertension. Continue current blood pressure regimen. Continue diuretic therapy, monitor clos hardik. 11. Systemic inflammatory response syndrome. Continue medical management. Please note I spent over 30 minutes of critical care time with this patient. Dictated By: MARCO ANTONIO CANALES/DEYA Conf#: [id number] DID#: [id number] CC: SUZETTE SIMMONS MD;*EndCC*
[2018-07-24] MEDS: ASPIRIN 81 MG TAB NGT SCH (08:37)
[2018-07-24] MEDS: GUAIFENESIN LA 600 MG TABSR PO SCH ×2 (08:37→21:16)
[2018-07-24] MEDS: FUROSEMIDE 40 MG INJ IV SCH (08:37)
[2018-07-24] MEDS: ENOXAPARIN 30 MG/0.3 ML SYG SC SCH (08:42)
[2018-07-24] MEDS: INSULIN HUMAN REGULAR 100 UNIT in SOD CHLORIDE 0.9% 99 ML IV SCH (10:32)
--- NOTE | 2018-07-24 11:13 | CONS ---
Consult Date/Type/Reason Admit Date/Time Jul 11, 2018 at 04:15 Initial Consult Date 07/17/18 Type of Consult Pulmonary Requesting Provider: VANIA LAMB MD Date/Time of Note DATE: 07/24/18 TIME: 11:11 Subjective Patient extubated yesterday. Still has significant weakness chest x-ray demonstrates left effusion versus infiltrate. De-escalating nitro drip. Objective Vital Signs Date Temp Pulse Resp B/P (MAP) Pulse Ox O2 O2 Flow FiO2 Time Delivery Rate 07/24/18 78 32 95 Nasal 3.0 08:43 Cannula 07/24/18 162/84 08:30 (110) 07/24/18 99.0 07:30 07/24/18 30 01:17 Intake and Output 07/23/18 07/23/18 07/24/18 1515:00 23:00 07:00 IntakeIntake Total 730.250 ml 714.8 ml 1259.8 ml OutputOutput Total 752 ml 268 ml 542 ml BalanceBalance -21.750 ml 446.8 ml 717.8 ml Exam PHYSICAL EXAMINATION: GENERAL: Well-nourished, well-developed gentleman, comfortable at rest, no acute distress. VITAL SIGNS: As above NECK: Supple. No JVD or lymphadenopathy. CARDIAC: Sounds S1, S2. No added sounds or murmurs. CHEST: Diminished air entry bilaterally. ABDOMEN: Soft, nontender. No guarding or rebound. EXTREMITIES: No cyanosis, clubbing, or edema. NEUROLOGIC: Grossly intact. Vent Setting Ventilator Support Mode: CPAP, PS Fraction of Inspired Oxygen pe: 30 Positive End Expiratory Pressu: 5.0 Results/Medications Result Diagram: 07/24/18 0330 07/24/18 0330 Results 24 hrs Laboratory Tests Test 07/23/18 11:52 07/23/18 13:19 07/23/18 13:52 07/23/18 15:00 Bedside Glucose 119 147 123 112 Test 07/23/18 15:30 07/23/18 15:58 07/23/18 17:16 07/23/18 17:58 Blood Gas Blood arterial Specimen Source Arterial Blood 07/23/2018 4:00:2 Date Drawn 3 PM Arterial Blood pH 7.450 (Temp corrected) Arterial Blood 28.2 L pCO2 (Temp correct) Arterial Blood 75.4 L pO2 (Temp corrected) Arterial Blood 19.2 L HCO3 Arterial Blood -3.6 L Base Excess Arterial Blood 93.3 L Oxygen Saturation Tima Test N/A Arterial Blood PUL ART LINE Gas Puncture Site Arterial 0.1 Blood Carboxyhemo globin Arterial Blood 0 Methemoglobin Blood Gas A-a O2 105.4 H Differential Oxyhemoglobin 93.2 Percent Blood Gas 37.0 Temperature Blood Gas Actual 24 Respiration Rate Blood Gas VENT - CPAP Modality FiO2 30.0 Blood Gas Tidal 540.0 Volume Blood Gas Low 5.0 PEEP Setting Blood Gas 10 Pressure Support Blood Gas Mary Kay BELLO ALLISON Critical Value Read Back Blood Gas RDIX Notified Whom Blood Gas 07/16/2018 4:12:5 Notified Time 8 PM Bedside Glucose 111 94 98 Test 07/23/18 18:49 07/23/18 19:47 07/23/18 21:17 07/23/18 22:19 Bedside Glucose 109 122 131 128 Test 07/23/18 23:22 07/24/18 01:07 07/24/18 02:21 07/24/18 03:30 Bedside Glucose 138 141 181 White Blood Count 14.4 H Red Blood Count 3.51 L Hemoglobin 10.2 L Hematocrit 30.5 L Mean Corpuscular 86.9 Volume Mean Corpuscular 29.1 Hemoglobin Mean Corpuscular 33.4 Hemoglobin Concen t Red Cell 12.9 Distribution Width Platelet Count 130 L Mean Platelet 10.7 H Volume Immature 0.800 H Granulocytes % Neutrophils % 80.8 H Lymphocytes % 11.8 L Monocytes % 5.6 Eosinophils % 0.8 Basophils % 0.2 Nucleated Red 0.0 Blood Cells % Immature 0.110 H Granulocytes # Neutrophils # 11.6 H Lymphocytes # 1.7 Monocytes # 0.8 Eosinophils # 0.1 Basophils # 0.0 Nucleated Red 0.0 Blood Cells # Sodium Level 137 Potassium Level 4.1 Chloride Level 107 Carbon Dioxide 20 L Level Anion Gap 10 Blood Urea 20 Nitrogen Creatinine 1.24 Est Glomerular 58 L Filtrat Rate mL/min Glucose Level 167 Calcium Level 9.2 Phosphorus Level 4.2 Magnesium Level 1.8 Test 07/24/18 04:33 07/24/18 05:51 07/24/18 07:38 07/24/18 08:39 Bedside Glucose 183 184 157 141 Test 07/24/18 09:45 07/24/18 10:25 Bedside Glucose 137 132 Medications Current Medications IV Flush (NS 3 ml) 3 ml PER PROTOCOL IV ; Start 07/11/18 at 05:30 Ondansetron HCl (Zofran Inj) 4 mg Q6H PRN IV NAUSEA/VOMITING Last administered on 07/18/18 08:46; Admin Dose 4 MG; Start 07/11/18 at 05:30 Nitroglycerin (Nitroglycerin (Sl Tab) 0.4 Mg) 1 tab Q5M PRN SL .CHEST PAIN; Start 07/11/18 at 05:30 Acetaminophen (Tylenol Tab) 650 mg Q6H PRN PO .PAIN 1-3 OR TEMP Last administered on 07/20/18 07:42; Admin Dose 650 MG; Start 07/11/18 at 05:30 Atorvastatin Calcium (Lipitor) 40 mg HS PO Last administered on 07/22/18 20:09; Admin Dose 40 MG; Start 07/11/18 at 21:00 Simethicone (Mylicon) 80 mg QID PRN GTB DISTENSION/GAS/BLOATING Last administered on 07/16/18 17:28; Admin Dose 80 MG; Start 07/13/18 at 12:30 Guaifenesin (Mucinex) 600 mg BID PO Last administered on 07/24/18 08:37; Admin Dose 600 MG; Start 07/15/18 at 10:30 Sodium Chloride (Deep Sea) 2 spray BID PRN NASAL congestion; Start 07/15/18 at 10:30 Diagnostic Test (Pha) (Accu-Chek) 1 ea Q1H XX Last administered on 07/24/18 09:47; Admin Dose 1 EA; Start 07/20/18 at 21:00 Insulin Human Regular 100 unit/ Sodium Chloride 100 ml @ 0 mls/hr PER PROTOCOL IV Last administered on 07/24/18 10:32; Admin Dose 5 MLS/HR; Start 07/20/18 at 21:00 Miscellaneous Information (* Miscellaneous Pharmacy Order) Treatment of Hypoglycemia: 1.BG 51... Per protocol XX ; Start 07/20/18 at 21:00 Dextrose (D50w Syringe) 25 ml Q15M PRN IV .DECREASED GLUCOSE; Start 07/20/18 at 21:00 Dextrose (D50w Syringe) 50 ml Q15M PRN IV .DECREASED GLUCOSE; Start 07/20/18 at 21:00 Nicardipine HCl 200 ml @ 50 mls/hr TITRATE PRN IV ANESTHESIA; Start 07/20/18 at 21:00 Nitroglycerin/ Dextrose 250 ml @ 1.5 mls/hr TITRATE IV Last administered on 07/24/18at 07:33; Admin Dose 60 MLS/HR; Start 07/20/18 at 22:30 Potassium Chloride 50 ml @ 50 mls/hr SEE DIRECTION PRN IVPB K+ LEVEL Last administered on 07/21/18at 13:44; Admin Dose 50 MLS/HR; Start 07/20/18 at 23:30 Magnesium Sulfate/ Dextrose 100 ml @ 100 mls/hr PRN PRN IVPB PENDING LAB VALUE; Start 07/20/18 at 23:30 Midazolam HCl (Versed) 2 mg Q2H PRN IV AGITATION; Start 07/21/18 at 04:30 Acetaminophen (Tylenol Supp) 650 mg Q4H PRN [place] MILD PAIN(1-3) OR TEMP>38C Last administered on 07/23/18at 17:29; Admin Dose 650 MG; Start 07/21/18 at 04:30 Albumin Human 250 ml @ 500 mls/hr PRN PRN IV CVP< 8, OR SBP<90 Last administered on 07/22/18at 21:42; Admin Dose 500 MLS/HR; Start 07/21/18 at 08:00 Acetaminophen (Tylenol Liquid) 650 mg Q6 PRN NGT MILD PAIN(1-3)OR ELEVATED TEMP Last administered on 07/23/18at 06:10; Admin Dose 650 MG; Start 07/21/18 at 09:00 Pantoprazole (Protonix Iv) 40 mg DAILY@06 IV Last administered on 07/24/18 05:36; Admin Dose 40 MG; Start 07/22/18 at 06:00 Piperacillin Sod/ Tazobactam Sod 100 ml @ 200 mls/hr Q6 IVPB Last administered on 07/24/18 05:36; Admin Dose 200 MLS/HR; Start 07/21/18 at 12:00 Norepinephrine 250 ml @ 1.875 mls/ hr TITRATE IV Last administered on 07/23/18at 07:05; Admin Dose 1.875 MLS/HR; Start 07/21/18 at 13:00 Morphine Sulfate (morphine) 1 mg Q4 PRN IV PAIN LEVEL 1-5 Last administered on 07/23/18at 19:39; Admin Dose 1 MG; Start 07/22/18 at 11:30 Morphine Sulfate (morphine) 2 mg Q4 PRN IV PAIN LEVEL 6-10 Last administered on 07/23/18at 23:17; Admin Dose 2 MG; Start 07/22/18 at 11:30 Aspirin (Aspirin) 81 mg DAILY NGT Last administered on 07/24/18at 08:37; Admin Dose 81 MG; Start 07/23/18 at 09:00 Enoxaparin Sodium (Lovenox) 30 mg DAILY SC Last administered on 07/24/18at 08:42; Admin Dose 30 MG; Start 07/23/18 at 09:00 Vancomycin HCl (Vanco Iv Per Pharmacy) VANCOMYCIN PER PHARMACY PER PROTOCOL XX ; Start 07/23/18 at 16:00 Vancomycin/Sodium Chloride 250 ml @ 125 mls/hr Q12H IVPB Last administered on 07/24/18at 06:13; Admin Dose 125 MLS/HR; Start 07/24/18 at 06:00 Albuterol/ Ipratropium (Duoneb) 3 ml Q6H RESP THERAPY HHN Last administered on 07/24/18at 08:41; Admin Dose 3 ML; Start 07/24/18 at 02:00 Albuterol/ Ipratropium (Duoneb) 3 ml Q2H RESP THERAPY PRN HHN sob Last administered on 07/23/18at 21:00; Admin Dose 3 ML; Start 07/23/18 at 20:30 Furosemide (Lasix) 40 mg DAILY@0600 IV Last administered on 07/24/18at 08:37; Admin Dose 40 MG; Start 07/24/18 at 08:00 Assessment/Plan Hospital Course (Demo Recall) IMPRESSION 1. Multivessel coronary artery disease, status post coronary artery bypass graft, postoperative day 3. 2. Prior significant tobacco history, likely underlying chronic obstructive pulmonary disease (COPD). Postop left effusion versus infiltrate. 3. Diabetes mellitus, poorly controlled, glycemic management prior to surgery. 4. Status post thymectomy. 5. Status post cardiogenic shock Plan 1. Incentive spirometry and aspiration precautions 2. CT chest noncontrast to evaluate left effusion may require thoracentesis. 3. PT eval encourage out of bed 4. Antibiotics for presumed pneumonia 5. Deep venous thrombosis (DVT) and gastrointestinal (GI) prophylaxis. Critical care time 40 minutes. AHMET TAVAREZ MD, [facility] Jul 24, 2018 11:13
--- NOTE | 2018-07-24 11:21 | PN ---
Date/Time of Note Date/Time of Note DATE: 07/24/18 TIME: 11:18 Objective Vitals Vital Signs Date Temp Pulse Resp B/P (MAP) Pulse Ox O2 O2 Flow FiO2 Time Delivery Rate 07/24/18 78 32 95 Nasal 3.0 08:43 Cannula 07/24/18 162/84 08:30 (110) 07/24/18 99.0 07:30 07/24/18 30 01:17 Intake and Output 07/23/18 07/23/18 07/24/18 1515:00 23:00 07:00 IntakeIntake Total 730.250 ml 714.8 ml 1259.8 ml OutputOutput Total 752 ml 268 ml 542 ml BalanceBalance -21.750 ml 446.8 ml 717.8 ml Results Result Diagram: 07/24/18 0330 07/24/18 0330 Medications Medications Current Medications IV Flush (NS 3 ml) 3 ml PER PROTOCOL IV ; Start 07/11/18 at 05:30 Ondansetron HCl (Zofran Inj) 4 mg Q6H PRN IV NAUSEA/VOMITING Last administered on 07/18/18at 08:46; Admin Dose 4 MG; Start 07/11/18 at 05:30 Nitroglycerin (Nitroglycerin (Sl Tab) 0.4 Mg) 1 tab Q5M PRN SL .CHEST PAIN; Start 07/11/18 at 05:30 Acetaminophen (Tylenol Tab) 650 mg Q6H PRN PO .PAIN 1-3 OR TEMP Last administered on 07/20/18at 07:42; Admin Dose 650 MG; Start 07/11/18 at 05:30 Atorvastatin Calcium (Lipitor) 40 mg HS PO Last administered on 07/22/18at 20:09; Admin Dose 40 MG; Start 07/11/18 at 21:00 Simethicone (Mylicon) 80 mg QID PRN GTB DISTENSION/GAS/BLOATING Last administered on 07/16/18at 17:28; Admin Dose 80 MG; Start 07/13/18 at 12:30 Guaifenesin (Mucinex) 600 mg BID PO Last administered on 07/24/18at 08:37; Admin Dose 600 MG; Start 07/15/18 at 10:30 Sodium Chloride (Deep Sea) 2 spray BID PRN NASAL congestion; Start 07/15/18 at 10:30 Diagnostic Test (Pha) (Accu-Chek) 1 ea Q1H XX Last administered on 07/24/18at 09:47; Admin Dose 1 EA; Start 07/20/18 at 21:00 Insulin Human Regular 100 unit/ Sodium Chloride 100 ml @ 0 mls/hr PER PROTOCOL IV Last administered on 07/24/18at 10:32; Admin Dose 5 MLS/HR; Start 07/20/18 at 21:00 Miscellaneous Information (* Miscellaneous Pharmacy Order) Treatment of Hypoglycemia: 1.BG 51... Per protocol XX ; Start 07/20/18 at 21:00 Dextrose (D50w Syringe) 25 ml Q15M PRN IV .DECREASED GLUCOSE; Start 07/20/18 at 21:00 Dextrose (D50w Syringe) 50 ml Q15M PRN IV .DECREASED GLUCOSE; Start 07/20/18 at 21:00 Nicardipine HCl 200 ml @ 50 mls/hr TITRATE PRN IV ANESTHESIA; Start 07/20/18 at 21:00 Nitroglycerin/ Dextrose 250 ml @ 1.5 mls/hr TITRATE IV Last administered on 07/24/18at 07:33; Admin Dose 60 MLS/HR; Start 07/20/18 at 22:30 Potassium Chloride 50 ml @ 50 mls/hr SEE DIRECTION PRN IVPB K+ LEVEL Last administered on 07/21/18at 13:44; Admin Dose 50 MLS/HR; Start 07/20/18 at 23:30 Magnesium Sulfate/ Dextrose 100 ml @ 100 mls/hr PRN PRN IVPB PENDING LAB VALUE; Start 07/20/18 at 23:30 Midazolam HCl (Versed) 2 mg Q2H PRN IV AGITATION; Start 07/21/18 at 04:30 Acetaminophen (Tylenol Supp) 650 mg Q4H PRN [place] MILD PAIN(1-3) OR TEMP>38C Last administered on 07/23/18at 17:29; Admin Dose 650 MG; Start 07/21/18 at 04:30 Albumin Human 250 ml @ 500 mls/hr PRN PRN IV CVP< 8, OR SBP<90 Last admini stered on 07/22/18at 21:42; Admin Dose 500 MLS/HR; Start 07/21/18 at 08:00 Acetaminophen (Tylenol Liquid) 650 mg Q6 PRN NGT MILD PAIN(1-3)OR ELEVATED TEMP Last administered on 07/23/18 06:10; Admin Dose 650 MG; Start 07/21/18 at 09:00 Pantoprazole (Protonix Iv) 40 mg DAILY@06 IV Last administered on 07/24/18 05:36; Admin Dose 40 MG; Start 07/22/18 at 06:00 Piperacillin Sod/ Tazobactam Sod 100 ml @ 200 mls/hr Q6 IVPB Last administered on 07/24/18 05:36; Admin Dose 200 MLS/HR; Start 07/21/18 at 12:00 Norepinephrine 250 ml @ 1.875 mls/ hr TITRATE IV Last administered on 07/23/18 07:05; Admin Dose 1.875 MLS/HR; Start 07/21/18 at 13:00 Morphine Sulfate (morphine) 1 mg Q4 PRN IV PAIN LEVEL 1-5 Last administered on 07/23/18 19:39; Admin Dose 1 MG; Start 07/22/18 at 11:30 Morphine Sulfate (morphine) 2 mg Q4 PRN IV PAIN LEVEL 6-10 Last administered on 07/23/18 23:17; Admin Dose 2 MG; Start 07/22/18 at 11:30 Aspirin (Aspirin) 81 mg DAILY NGT Last administered on 07/24/18 08:37; Admin Dose 81 MG; Start 07/23/18 at 09:00 Enoxaparin Sodium (Lovenox) 30 mg DAILY SC Last administered on 07/24/18 08:42; Admin Dose 30 MG; Start 07/23/18 at 09:00 Vancomycin HCl (Vanco Iv Per Pharmacy) VANCOMYCIN PER PHARMACY PER PROTOCOL XX ; Start 07/23/18 at 16:00 Vancomycin/Sodium Chloride 250 ml @ 125 mls/hr Q12H IVPB Last administered on 07/24/18 06:13; Admin Dose 125 MLS/HR; Start 07/24/18 at 06:00 Albuterol/ Ipratropium (Duoneb) 3 ml Q6H RESP THERAPY HHN Last administered on 07/24/18 08:41; Admin Dose 3 ML; Start 07/24/18 at 02:00 Albuterol/ Ipratropium (Duoneb) 3 ml Q2H RESP THERAPY PRN HHN sob Last administered on 07/23/18at 21:00; Admin Dose 3 ML; Start 07/23/18 at 20:30 Furosemide (Lasix) 40 mg DAILY@0600 IV Last administered on 07/24/18at 08:37; Admin Dose 40 MG; Start 07/24/18 at 08:00 VTE Prophylaxis Risk score (from [facility])>0 risk: 10 SCD applied (from [facility]): No SCD contraindication: other Lines/Catheters IV Catheter Type: Galindo in Place: Yes Cont'd galindo catheter reason: terminal illness/intractable pain Assessment/Plan Hospital Course Subjective extubated, some SOB, but overall improving slightly Objective Physical exam General: Patient is laying in bed, answers questions Mentation: Patient is alert and oriented Head: Normocephalic atraumatic Eyes: EOMI, pupils reactive to light Neck: Supple, nontender, midline Respiratory: Clear to auscultation bilaterally Cardiovascular: regular rate, no obvious murmurs Gastrointestinal: non-tender to palpation, bowel sounds heard. Neurological: Moves all extremities spontaneously Skin: surgical site bandaged, CDI, Assessment/Plan CAD with unstable angina s/p 3V CABG 07/20/18 - CT surgery on board and appreciate consultation - Continue cardiac meds with aspirin, statin, metoprolol, lisinopril when able - Plavix/aspirin to restart when ok with cards/CT surgery acute hypoxic resp distress -2/2 to above CABG -extubated now, on NC hypotension -2/2 CABG -off pressors Hypertension -now on nitro drip, titrate off as able fever/white count -blood cultures done -still cont empiric abx Uncontrolled diabetes - A1c at OSH noted to be 12.3 - Diabetic education consultation appreciated - Lantus and Novolog on board and adjustments made for better control - Upon d/c will give Metformin/Jardiance, Basaglar and Novolog- per DM educator recommendation Hypertension - Continue current medications Cough with congestion - Mucinex for relief - Nasal saline PRN Disposition over 40 minutes of critical care time spent on this evaluation -cont ICU stay FREDIS FALLON Jul 24, 2018 11:21
--- NOTE | 2018-07-24 11:58 | PN ---
Date/Time of Note Date/Time of Note DATE: 07/24/18 TIME: 11:57 Assessment/Plan Lines/Catheters IV Catheter Type (from Nrsg): Roa in Place (from Nrsg): Yes Assessment/Plan Assessment/Plan Status post coronary artery bypass grafting Hemodynamically stable woke up Follows command Minimal inotropic support extubated will DC CT PW Subjective 24 Hr Interval Summary Constitutional: improved Pain Control: mild Exam/Review of Systems Vital Signs Vitals Vital Signs Date Temp Pulse Resp B/P (MAP) Pulse Ox O2 O2 Flow FiO2 Time Delivery Rate 07/24/18 99.8 84 34 110/70 96 Nasal 2.0 11:00 (83) Cannula 07/24/18 30 01:17 Intake and Output 07/23/18 07/23/18 07/24/18 1515:00 23:00 07:00 IntakeIntake Total 730.250 ml 714.8 ml 1259.8 ml OutputOutput Total 752 ml 268 ml 542 ml BalanceBalance -21.750 ml 446.8 ml 717.8 ml Exam ENMT: nl external ears & nose, nl lips & teeth, nl nasal mucosa & septum, mucosa pink and moist Neck: supple, non-tender Respiratory: clear to auscultation, normal air movement Cardiovascular: regular rate and rhythm, nl pulses Gastrointestinal: soft, nl liver, spleen, non-tender Musculoskeletal: nl extremities to inspection, nl gait and stance Results Result Diagram: 07/24/1832907/24/18329 VANIA LAMB MD Jul 24, 2018 11:58
[2018-07-24] MEDS: ACETAMINOPHEN 325 MG TAB PO PRN (12:11)
--- NOTE | 2018-07-24 12:58 | CONS ---
Assessment/Plan Assessment/Plan Hospital Course (Demo Recall) Patient was extubated he looks comfortable on nasal cannula still with low-grade fevers, T-max of 100.5. WBC 14.4 H&H 10.2 and 30.5 platelets 130 neutrophils 80.8 BUN 20 creatinine 1.24 Antimicrobials: Vanco Zosyn Microbiology: All cultures have been negative Indwelling: Endotracheal tube NG tube right IJ triple-lumen catheter with introducer, chest tubes, Roa, left radial A-line Physical examination: Well-developed elderly man who is in no distress. Head atraumatic normocephalic. Sclera nonicteric. Buccal mucosa dry. Neck is supple, chest rise symmetrical, breath sounds diminished bases. Heart: S1-S2. Abdomen, distended, soft, bowel sounds present. Extremities with trace edema. Assessment: 1. Systemic inflammatory response syndrome with postoperative fevers, likely p ulmonary source, possibly secondary to multiple lines 2. Multivessel coronary artery disease, status post CABG 3. Diabetes 4. Status post thymectomy 5. Acute kidney insufficiency Plan: Stable post extubation, still with ongoing low-grade fevers, all cultures negative, continue antibiotics, recommend discontinue lines as soon as possible Consultation Date/Type/Reason Admit Date/Time Jul 11, 2018 at 04:15 Initial Consult Date 07/17/18 Type of Consult id Requesting Provider: VANIA LAMB MD Date/Time of Note DATE: 07/24/18 TIME: 12:57 Exam/Review of Systems Exam Vitals Vital Signs Date Temp Pulse Resp B/P (MAP) Pulse Ox O2 O2 Flow FiO2 Time Delivery Rate 07/24/18 100.0 12:11 07/24/18 84 34 110/70 96 Nasal 2.0 11:00 (83) Cannula 07/24/18 30 01:17 Intake and Output 07/23/18 07/23/18 07/24/18 1515:00 23:00 07:00 IntakeIntake Total 730.250 ml 714.8 ml 1259.8 ml OutputOutput Total 752 ml 268 ml 542 ml BalanceBalance -21.750 ml 446.8 ml 717.8 ml Results Result Diagram: 07/24/18 0330 07/24/18 0330 Results 24hrs Laboratory Tests Test 07/23/18 13:19 07/23/18 13:52 07/23/18 15:00 07/23/18 15:30 Bedside Glucose 147 123 112 Blood Gas Blood arterial Specimen Source Arterial Blood 07/23/2018 4:00:2 Date Drawn 3 PM Arterial Blood pH 7.450 (Temp corrected) Arterial Blood 28.2 L pCO2 (Temp correct) Arterial Blood 75.4 L pO2 (Temp corrected) Arterial Blood 19.2 L HCO3 Arterial Blood -3.6 L Base Excess Arterial Blood 93.3 L Oxygen Saturation Tima Test N/A Arterial Blood PUL ART LINE Gas Puncture Site Arterial 0.1 Blood Carboxyhemo globin Arterial Blood 0 Methemoglobin Blood Gas A-a O2 105.4 H Differential Oxyhemoglobin 93.2 Percent Blood Gas 37.0 Temperature Blood Gas Actual 24 Respiration Rate Blood Gas VENT - CPAP Modality FiO2 30.0 Blood Gas Tidal 540.0 Volume Blood Gas Low 5.0 PEEP Setting Blood Gas 10 Pressure Support Blood Gas L. BELLO CN Critical Value Read Back Blood Gas RDIX Notified Whom Blood Gas 07/16/2018 4:12:5 Notified Time 8 PM Test 07/23/18 15:58 07/23/18 17:16 07/23/18 17:58 07/23/18 18:49 Bedside Glucose 111 94 98 109 Test 07/23/18 19:47 07/23/18 21:17 07/23/18 22:19 07/23/18 23:22 Bedside Glucose 122 131 128 138 Test 07/24/18 01:07 07/24/18 02:21 07/24/18 03:30 07/24/18 04:33 Bedside Glucose 141 181 183 White Blood Count 14.4 H Red Blood Count 3.51 L Hemoglobin 10.2 L Hematocrit 30.5 L Mean Corpuscular 86.9 Volume Mean Corpuscular 29.1 Hemoglobin Mean Corpuscular 33.4 Hemoglobin Concen t Red Cell 12.9 Distribution Width Platelet Count 130 L Mean Platelet 10.7 H Volume Immature 0.800 H Granulocytes % Neutrophils % 80.8 H Lymphocytes % 11.8 L Monocytes % 5.6 Eosinophils % 0.8 Basophils % 0.2 Nucleated Red 0.0 Blood Cells % Immature 0.110 H Granulocytes # Neutrophils # 11.6 H Lymphocytes # 1.7 Monocytes # 0.8 Eosinophils # 0.1 Basophils # 0.0 Nucleated Red 0.0 Blood Cells # Sodium Level 137 Potassium Level 4.1 Chloride Level 107 Carbon Dioxide 20 L Level Anion Gap 10 Blood Urea 20 Nitrogen Creatinine 1.24 Est Glomerular 58 L Filtrat Rate mL/min Glucose Level 167 Calcium Level 9.2 Phosphorus Level 4.2 Magnesium Level 1.8 Test 07/24/18 05:51 07/24/18 07:38 07/24/18 08:39 07/24/18 09:45 Bedside Glucose 184 157 141 137 Test 07/24/18 10:25 07/24/18 12:01 Bedside Glucose 132 105 Medications Medication Current Medications IV Flush (NS 3 ml) 3 ml PER PROTOCOL IV ; Start 07/11/18 at 05:30 Ondansetron HCl (Zofran Inj) 4 mg Q6H PRN IV NAUSEA/VOMITING Last administered on 07/18/18 08:46; Admin Dose 4 MG; Start 07/11/18 at 05:30 Nitroglycerin (Nitroglycerin (Sl Tab) 0.4 Mg) 1 tab Q5M PRN SL .CHEST PAIN; Start 07/11/18 at 05:30 Acetaminophen (Tylenol Tab) 650 mg Q6H PRN PO .PAIN 1-3 OR TEMP Last administered on 07/24/18 12:11; Admin Dose 650 MG; Start 07/11/18 at 05:30 Atorvastatin Calcium (Lipitor) 40 mg HS PO Last administered on 07/22/18 20:09; Admin Dose 40 MG; Start 07/11/18 at 21:00 Simethicone (Mylicon) 80 mg QID PRN GTB DISTENSION/GAS/BLOATING Last administered on 07/16/18 17:28; Admin Dose 80 MG; Start 07/13/18 at 12:30 Guaifenesin (Mucinex) 600 mg BID PO Last administered on 07/24/18 08:37; Admin Dose 600 MG; Start 07/15/18 at 10:30 Sodium Chloride (Deep Sea) 2 spray BID PRN NASAL congestion; Start 07/15/18 at 10:30 Diagnostic Test (Pha) (Accu-Chek) 1 ea Q1H XX Last administered on 07/24/18 12:02; Admin Dose 1 EA; Start 07/20/18 at 21:00 Insulin Human Regular 100 unit/ Sodium Chloride 100 ml @ 0 mls/hr PER PROTOCOL IV Last administered on 3/1/19at 10:32; Admin Dose 5 MLS/HR; Start 07/20/18 at 21:00 Miscellaneous Information (* Miscellaneous Pharmacy Order) Treatment of Hyp oglycemia: 1.BG 51... Per protocol XX ; Start 07/20/18 at 21:00 Dextrose (D50w Syringe) 25 ml Q15M PRN IV .DECREASED GLUCOSE; Start 07/20/18 at 21:00 Dextrose (D50w Syringe) 50 ml Q15M PRN IV .DECREASED GLUCOSE; Start 07/20/18 at 21:00 Nicardipine HCl 200 ml @ 50 mls/hr TITRATE PRN IV ANESTHESIA; Start 07/20/18 at 21:00 Nitroglycerin/ Dextrose 250 ml @ 1.5 mls/hr TITRATE IV Last administered on 07/24/18at 07:33; Admin Dose 60 MLS/HR; Start 07/20/18 at 22:30 Potassium Chloride 50 ml @ 50 mls/hr SEE DIRECTION PRN IVPB K+ LEVEL Last administered on 07/21/18at 13:44; Admin Dose 50 MLS/HR; Start 07/20/18 at 23:30 Magnesium Sulfate/ Dextrose 100 ml @ 100 mls/hr PRN PRN IVPB PENDING LAB VALUE; Start 07/20/18 at 23:30 Midazolam HCl (Versed) 2 mg Q2H PRN IV AGITATION; Start 07/21/18 at 04:30 Acetaminophen (Tylenol Supp) 650 mg Q4H PRN [place] MILD PAIN(1-3) OR TEMP>38C Last administered on 07/23/18at 17:29; Admin Dose 650 MG; Start 07/21/18 at 04:30 Albumin Human 250 ml @ 500 mls/hr PRN PRN IV CVP< 8, OR SBP<90 Last administered on 07/22/18at 21:42; Admin Dose 500 MLS/HR; Start 07/21/18 at 08:00 Acetaminophen (Tylenol Liquid) 650 mg Q6 PRN NGT MILD PAIN(1-3)OR ELEVATED TEMP Last administered on 07/23/18at 06:10; Admin Dose 650 MG; Start 07/21/18 at 09:00 Pantoprazole (Protonix Iv) 40 mg DAILY@06 IV Last administered on 07/24/18at 05:36; Admin Dose 40 MG; Start 07/22/18 at 06:00 Piperacillin Sod/ Tazobactam Sod 100 ml @ 200 mls/hr Q6 IVPB Last administered on 07/24/18 12:10; Admin Dose 200 MLS/HR; Start 07/21/18 at 12:00 Norepinephrine 250 ml @ 1.875 mls/ hr TITRATE IV Last administered on 07/23/18 07:05; Admin Dose 1.875 MLS/HR; Start 07/21/18 at 13:00 Morphine Sulfate (morphine) 1 mg Q4 PRN IV PAIN LEVEL 1-5 Last administered on 07/23/18 19:39; Admin Dose 1 MG; Start 07/22/18 at 11:30 Morphine Sulfate (morphine) 2 mg Q4 PRN IV PAIN LEVEL 6-10 Last administered on 07/23/18 23:17; Admin Dose 2 MG; Start 07/22/18 at 11:30 Aspirin (Aspirin) 81 mg DAILY NGT Last administered on 07/24/18 08:37; Admin Dose 81 MG; Start 07/23/18 at 09:00 Enoxaparin Sodium (Lovenox) 30 mg DAILY SC Last administered on 07/24/18 08:42; Admin Dose 30 MG; Start 07/23/18 at 09:00 Vancomycin HCl (Vanco Iv Per Pharmacy) VANCOMYCIN PER PHARMACY PER PROTOCOL XX ; Start 07/23/18 at 16:00 Vancomycin/Sodium Chloride 250 ml @ 125 mls/hr Q12H IVPB Last administered on 07/24/18 06:13; Admin Dose 125 MLS/HR; Start 07/24/18 at 06:00 Albuterol/ Ipratropium (Duoneb) 3 ml Q6H RESP THERAPY HHN Last administered on 07/24/18 08:41; Admin Dose 3 ML; Start 07/24/18 at 02:00 Albuterol/ Ipratropium (Duoneb) 3 ml Q2H RESP THERAPY PRN HHN sob Last administered on 07/23/18 21:00; Admin Dose 3 ML; Start 07/23/18 at 20:30 Furosemide (Lasix) 40 mg DAILY@0600 IV Last administered on 07/24/18 08:37; A dmin Dose 40 MG; Start 07/24/18 at 08:00 KATHY LOU NP Jul 24, 2018 12:58
--- NOTE | 2018-07-24 13:35 | RADRPT ---
Vent Rate: 102 bpm RR Interval: 0 msec MI Interval: 166 msec QRS Duration: 80 msec QT Interval: 316 msec QTC Interval: 411 msec P-R-T [place]: 47 - 15 - 38 degrees Sinus tachycardia with fusion complexes Otherwise normal ECG Electronically Signed By: Tariq Gallegos
--- NOTE | 2018-07-24 13:35 | RADRPT ---
Vent Rate: 93 bpm RR Interval: 0 msec [place] Interval: 0 msec QRS Duration: 90 msec QT Interval: 374 msec QTC Interval: 465 msec P-R-T [place]: 0 - 80 - 72 degrees Accelerated Junctional rhythm with retrograde conduction Abnormal ECG Electronically Signed By: Luis Edge
--- NOTE | 2018-07-24 13:35 | RADRPT ---
Vent Rate: 79 bpm RR Interval: 0 msec [place] Interval: 186 msec QRS Duration: 92 msec QT Interval: 358 msec QTC Interval: 410 msec P-R-T [place]: 43 - 29 - 59 degrees Normal sinus rhythm Possible Left atrial enlargement Incomplete right bundle branch block Borderline ECG Electronically Signed By: Tariq Gallegos
[2018-07-24] MEDS ORDERED: POTASSIUM CHLORIDE (SR) 20 MEQ TAB PO STA (14:11)
--- NOTE | 2018-07-24 14:18 | CONS ---
Consult Date/Type/Reason Admit Date/Time Jul 11, 2018 at 04:15 Initial Consult Date 07/17/18 Type of Consultation: cv Requesting Provider: VANIA LAMB MD Date/Time of Note DATE: 07/24/18 TIME: 14:13 Subjective Interventional cardiology follow-up progress note/critical care note Subjective: Discussed with the staff and physicians. Patient status post 3 v coronary artery bypass graft 07/20/2018. Patient on dobutamine/ levophed now pt was extubated on 07/23 pt with HTN and on NTG. now off of NTG after lasix given Objective: General: no acute distress HEENT: NC/AT. pupils are equal. round. NECK: . no stridor. Chest: Status post sternotomy, status post chest tube removed now CV: RRR. systolic murmur; no gallop or rubs. PULM: no wheezing + rhonchi GI: SOFT, NT, ND, no rebound or guarding Extremity: trace B/L LE edema. no clubbing. neuro: awake and responds appropriately Psych: calm and pleasant rectal: deferred : normal Echocardiogram done 07/11/2018 which was personally reviewed shows: Normal left ventricular systolic function. Normal left ventricular cavity size. Sigmoid septum. Ejection fraction is visually estimated at 55 %. Tissue Doppler/Mitral Doppler indices are consistent with impaired relaxation (Stage I diastolic dysfunction). Mild mitral leaflet calcification. Mild mitral annular calcification. Trace mitral regurgitation. No significant aortic stenosis or insufficiency. Aortic cusps appear mildly calcified. Normal appearance of the tricuspid valve. Estimated peak PA systolic pressure 26 mmHg. There is trace tricuspid regurgitation. CXR 07/22: Interstitial edema suggesting cardiopulmonary congestion is similar in appearance. Small left pleural effusion is mildly increased. CXR 07/24/18 1. Interval increase in moderate left pleural effusion. Possible adjacent left lung base atelectasis or infiltrate. 2. Cardiomegaly. Slight increased interstitial markings suggestive of worsening pulmonary vascular congestion. 3. Support lines and tubes as described above. Objective Vitals Vital Signs Date Temp Pulse Resp B/P (MAP) Pulse Ox O2 O2 Flow FiO2 Time Delivery Rate 07/24/18 77 30 122/62 96 Nasal 2.0 13:00 (82) Cannula 07/24/18 99.6 12:59 07/24/18 30 01:17 Intake and Output 07/23/18 07/23/18 07/24/18 1414:59 22:59 06:59 IntakeIntake Total 732.750 ml 697.3 ml 1274.8 ml OutputOutput Total 710 ml 276 ml 521 ml BalanceBalance 22.750 ml 421.3 ml 753.8 ml Results/Medications Result Diagram: 07/24/18 0330 07/24/18 0330 Results 24 hrs Laboratory Tests Test 07/23/18 15:00 07/23/18 15:30 07/23/18 15:58 07/23/18 17:16 Bedside Glucose 112 111 94 Blood Gas Blood arterial Specimen Source Arterial Blood 07/23/2018 4:00:2 Date Drawn 3 PM Arterial Blood pH 7.450 (Temp corrected) Arterial Blood 28.2 L pCO2 (Temp correct) Arterial Blood 75.4 L pO2 (Temp corrected) Arterial Blood 19.2 L HCO3 Arterial Blood -3.6 L Base Excess Arterial Blood 93.3 L Oxygen Saturation Tima Test N/A Arterial Blood PUL ART LINE Gas Puncture Site Arterial 0.1 Blood Carboxyhemo globin Arterial Blood 0 Methemoglobin Blood Gas A-a O2 105.4 H Differential Oxyhemoglobin 93.2 Percent Blood Gas 37.0 Temperature Blood Gas Actual 24 Respiration Rate Blood Gas VENT - CPAP Modality FiO2 30.0 Blood Gas Tidal 540.0 Volume Blood Gas Low 5.0 PEEP Setting Blood Gas 10 Pressure Support Blood Gas Mary Kay MONSALVE CN Critical Value Read Back Blood Gas RDIX Notified Whom Blood Gas 07/16/2018 4:12:5 Notified Time 8 PM Test 07/23/18 17:58 07/23/18 18:49 07/23/18 19:47 07/23/18 21:17 Bedside Glucose 98 109 122 131 Test 07/23/18 22:19 07/23/18 23:22 07/24/18 01:07 07/24/18 02:21 Bedside Glucose 128 138 141 181 Test 07/24/18 03:30 07/24/18 04:33 07/24/18 05:51 07/24/18 07:38 White Blood Count 14.4 H Red Blood Count 3.51 L Hemoglobin 10.2 L Hematocrit 30.5 L Mean Corpuscular 86.9 Volume Mean Corpuscular 29.1 Hemoglobin Mean Corpuscular 33.4 Hemoglobin Concen t Red Cell 12.9 Distribution Width Platelet Count 130 L Mean Platelet 10.7 H Volume Immature 0.800 H Granulocytes % Neutrophils % 80.8 H Lymphocytes % 11.8 L Monocytes % 5.6 Eosinophils % 0.8 Basophils % 0.2 Nucleated Red 0.0 Blood Cells % Immature 0.110 H Granulocytes # Neutrophils # 11.6 H Lymphocytes # 1.7 Monocytes # 0.8 Eosinophils # 0.1 Basophils # 0.0 Nucleated Red 0.0 Blood Cells # Sodium Level 137 Potassium Level 4.1 Chloride Level 107 Carbon Dioxide 20 L Level Anion Gap 10 Blood Urea 20 Nitrogen Creatinine 1.24 Est Glomerular 58 L Filtrat Rate mL/min Glucose Level 167 Calcium Level 9.2 Phosphorus Level 4.2 Magnesium Level 1.8 Bedside Glucose 183 184 157 Test 07/24/18 08:39 07/24/18 09:45 07/24/18 10:25 07/24/18 12:01 Bedside Glucose 141 137 132 105 Test 07/24/18 13:54 Bedside Glucose 123 Medications Current Medications IV Flush (NS 3 ml) 3 ml PER PROTOCOL IV ; Start 07/11/18 at 05:30 Ondansetron HCl (Zofran Inj) 4 mg Q6H PRN IV NAUSEA/VOMITING Last administered on 07/18/18at 08:46; Admin Dose 4 MG; Start 07/11/18 at 05:30 Nitroglycerin (Nitroglycerin (Sl Tab) 0.4 Mg) 1 tab Q5M PRN SL .CHEST PAIN; Start 07/11/18 at 05:30 Acetaminophen (Tylenol Tab) 650 mg Q6H PRN PO .PAIN 1-3 OR TEMP Last administered on 07/24/18at 12:11; Admin Dose 650 MG; Start 07/11/18 at 05:30 Atorvastatin Calcium (Lipitor) 40 mg HS PO Last administered on 07/22/18at 20:09; Admin Dose 40 MG; Start 07/11/18 at 21:00 Simethicone (Mylicon) 80 mg QID PRN GTB DISTENSION/GAS/BLOATING Last administered on 07/16/18at 17:28; Admin Dose 80 MG; Start 07/13/18 at 12:30 Guaifenesin (Mucinex) 600 mg BID PO Last administered on 07/24/18at 08:37; Admin Dose 600 MG; Start 07/15/18 at 10:30 Sodium Chloride (Deep Sea) 2 spray BID PRN NASAL congestion; Start 07/15/18 at 10:30 Diagnostic Test (Pha) (Accu-Chek) 1 ea Q1H XX Last administered on 07/24/18at 12:02; Admin Dose 1 EA; Start 07/20/18 at 21:00 Insulin Human Regular 100 unit/ Sodium Chloride 100 ml @ 0 mls/hr PER PROTOCOL IV Last administered on 07/24/18at 10:32; Admin Dose 5 MLS/HR; Start 07/20/18 at 21:00 Miscellaneous Information (* Miscellaneous Pharmacy Order) Treatment of Hypoglycemia: 1.BG 51... Per protocol XX ; Start 07/20/18 at 21:00 Dextrose (D50w Syringe) 25 ml Q15M PRN IV .DECREASED GLUCOSE; Start 07/20/18 at 21:00 Dextrose (D50w Syringe) 50 ml Q15M PRN IV .DECREASED GLUCOSE; Start 07/20/18 at 21:00 Nicardipine HCl 200 ml @ 50 mls/hr TITRATE PRN IV ANESTHESIA; Start 07/20/18 at 21:00 Nitroglycerin/ Dextrose 250 ml @ 1.5 mls/hr TITRATE IV Last administered on 07/24/18at 07:33; Admin Dose 60 MLS/HR; Start 07/20/18 at 22:30 Potassium Chloride 50 ml @ 50 mls/hr SEE DIRECTION PRN IVPB K+ LEVEL Last administered on 07/21/18at 13:44; Admin Dose 50 MLS/HR; Start 07/20/18 at 23:30 Magnesium Sulfate/ Dextrose 100 ml @ 100 mls/hr PRN PRN IVPB PENDING LAB VALUE; Start 07/20/18 at 23:30 Midazolam HCl (Versed) 2 mg Q2H PRN IV AGITATION; Start 07/21/18 at 04:30 Acetaminophen (Tylenol Supp) 650 mg Q4H PRN [place] MILD PAIN(1-3) OR TEMP>38C Last administered on 07/23/18at 17:29; Admin Dose 650 MG; Start 07/21/18 at 04:30 Albumin Human 250 ml @ 500 mls/hr PRN PRN IV CVP< 8, OR SBP<90 Last admini stered on 07/22/18at 21:42; Admin Dose 500 MLS/HR; Start 07/21/18 at 08:00 Acetaminophen (Tylenol Liquid) 650 mg Q6 PRN NGT MILD PAIN(1-3)OR ELEVATED TEMP Last administered on 07/23/18 06:10; Admin Dose 650 MG; Start 07/21/18 at 09:00 Pantoprazole (Protonix Iv) 40 mg DAILY@06 IV Last administered on 07/24/18 05:36; Admin Dose 40 MG; Start 07/22/18 at 06:00 Piperacillin Sod/ Tazobactam Sod 100 ml @ 200 mls/hr Q6 IVPB Last administered on 07/24/18 12:10; Admin Dose 200 MLS/HR; Start 07/21/18 at 12:00 Norepinephrine 250 ml @ 1.875 mls/ hr TITRATE IV Last administered on 07/23/18 07:05; Admin Dose 1.875 MLS/HR; Start 07/21/18 at 13:00 Morphine Sulfate (morphine) 1 mg Q4 PRN IV PAIN LEVEL 1-5 Last administered on 07/23/18 19:39; Admin Dose 1 MG; Start 07/22/18 at 11:30 Morphine Sulfate (morphine) 2 mg Q4 PRN IV PAIN LEVEL 6-10 Last administered on 07/23/18 23:17; Admin Dose 2 MG; Start 07/22/18 at 11:30 Aspirin (Aspirin) 81 mg DAILY NGT Last administered on 07/24/18 08:37; Admin Dose 81 MG; Start 07/23/18 at 09:00 Enoxaparin Sodium (Lovenox) 30 mg DAILY SC Last administered on 07/24/18 08:42; Admin Dose 30 MG; Start 07/23/18 at 09:00 Vancomycin HCl (Vanco Iv Per Pharmacy) VANCOMYCIN PER PHARMACY PER PROTOCOL XX ; Start 07/23/18 at 16:00 Vancomycin/Sodium Chloride 250 ml @ 125 mls/hr Q12H IVPB Last administered on 07/24/18 06:13; Admin Dose 125 MLS/HR; Start 07/24/18 at 06:00 Albuterol/ Ipratropium (Duoneb) 3 ml Q6H RESP THERAPY HHN Last administered on 07/24/18 08:41; Admin Dose 3 ML; Start 07/24/18 at 02:00 Albuterol/ Ipratropium (Duoneb) 3 ml Q2H RESP THERAPY PRN HHN sob Last administered on 07/23/18at 21:00; Admin Dose 3 ML; Start 07/23/18 at 20:30 Furosemide (Lasix) 40 mg DAILY@0600 IV Last administered on 07/24/18at 08:37; Admin Dose 40 MG; Start 07/24/18 at 08:00 Miscellaneous Information (*Rx Drug Level Order Reminder*) VANCO TR 07/25 AT 0500 ONCE ONCE XX ; Start 07/25/18 at 05:00; Stop 07/25/18 at 05:01 Assessment/Plan Hospital Course (Demo Recall) 1. Unstable angina 2. Multivessel coronary artery disease 3. 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 Diabetes 5. History of hypertension 6. Anemia 7. Postop respiratory failure currently intubated 8. POST OP FEVER : improved Recommendations: Respiratory care will be continued managed as per pulm. CT chest ordered Continue with insulin will start TYLER/ toprol now that BP is elevated. asa daily abx as per ID rec on PPI for GI prophylaxis Lovenox for DVT prophylaxis as well More than 32 minutes of critical care time was for management treatment of this patient excluding procedure Thank you for his referral. We will continue to follow along with you. SEAN NOGUERA MD [facility] SEAN NOGUERA MD Jul 24, 2018 14:18
[2018-07-24] MEDS ORDERED: MAGNESIUM SULFATE 2 GM/50 ML 50 ML IVPB ONE (14:30)
[2018-07-24] MEDS: LISINOPRIL 5 MG TAB PO SCH ×2 (14:31→21:16)
[2018-07-24] MEDS: ONDANSETRON 4 MG INJ IV PRN (21:16)
[2018-07-24] MEDS: ATORVASTATIN 40 MG TAB PO SCH (21:16)
[2018-07-24] MEDS ORDERED: hydrALAzine 20 MG INJ IV ONE (21:30)
[2018-07-24] MEDS: morphine 2 MG INJ IV PRN (22:23)
[2018-07-25] VITALS (24 sets, daily range): BP systolic 102–152; BP diastolic 52–109; PULSE 65–90; RESP 21–36
[2018-07-25] MEDS: PIPER-TAZO 3.375 GM IV (PMX) 100 ML IVPB SCH ×4 (00:29→17:04)
[2018-07-25] MEDS: ACCU-CHEK XX SCH ×24 (01:08→23:45)
[2018-07-25] MEDS: ALBUTEROL/IPRATROPIUM (NEB) 3 ML AMP HHN SCH ×4 (01:27→20:00)
[2018-07-25] MEDS: PANTOPRAZOLE 40 MG INJ IV SCH (05:22)
[2018-07-25] MEDS: FUROSEMIDE 40 MG INJ IV SCH (05:26)
[2018-07-25] MEDS: VANCOMYCIN 750 MG (PMX) 250 ML IVPB SCH ×2 (06:39→17:51)
--- NOTE | 2018-07-25 07:33 | PN ---
Date/Time of Note Date/Time of Note DATE: 07/25/18 TIME: 07:32 Assessment/Plan VTE Prophylaxis Risk score (from Nsg)>0 risk: 6 SCD applied (from Nsg): Yes Pharmacological prophylaxis: other Lines/Catheters IV Catheter Type (from Nrs): Cordis Urinary Cath still in place: Yes Reason Cath still needed: urinary retention Assessment/Plan Hospital Course renal follow up SUBJECTIVE: s/p extubation. The patient overnight; however, starting to develop more tachypnea, more shortness of breath. Urinary output has been increasing. d/w Dr Toure OBJECTIVE: HEENT: Head is normocephalic. NECK: Supple, positive JVD. HEART: Regular rate. LUNGS: Show diminished breath sounds at the base. ABDOMEN: Soft, nontender to palpation. No rebound or guarding. EXTREMITIES: Negative for clubbing, cyanosis, no edema. DERMATOLOGIC: No rashes. MUSCULOSKELETAL: No joint effusions. NEUROLOGIC: No change in exam. ASSESSMENT AND PLAN: 1. Nonoliguric acute kidney injury with previous baseline creatinine of 0.9 mg/dL. Etiology of acute kidney injury is secondary to hemodynamics. The patient's renal function has been fluctuating but overall stable. Continue current treatment plans, supportive care, renally dose all meds. Continue diuretic therapy and acei 2. Acute heart failure. The patient is volume overloaded. Will start Lasix 40 mg IV daily, monitor I's and O's closely. 3. Anemia. Continue to monitor hemoglobin and hematocrit levels. 4. Mineral bone disorder. Continue to monitor calcium and phosphorus levels. 5. Hypernatremia, improved. Continue to monitor. 6. Coronary artery disease, status post 3-vessel CABG. Continue medical marina gement. Follow up with CT surgery. 7. Status post cardiogenic shock. Continue diuretic therapy as stated above, the patient is currently off inotropic support. 8. Respiratory failure. The patient is status post extubation. Continue to monitor. Follow up with pulmonary. 9. Diabetes. Continue current insulin regimen. 10. Hypertension. Continue current blood pressure regimen. Continue diuretic therapy, monitor closely. 11. Systemic inflammatory response syndrome. Continue medical management. Result Diagram: 07/25/18 0500 07/25/18 0500 Results 24hrs Laboratory Tests Test 07/24/18 07:38 07/24/18 08:39 07/24/18 09:45 07/24/18 10:25 Bedside Glucose 157 141 137 132 Test 07/24/18 12:01 07/24/18 13:54 07/24/18 15:09 07/24/18 16:27 Bedside Glucose 105 123 111 113 Test 07/24/18 18:10 07/24/18 19:00 07/24/18 21:06 07/24/18 23:10 Bedside Glucose 128 126 126 130 Test 07/25/18 01:02 07/25/18 03:16 07/25/18 05:00 07/25/18 05:14 Bedside Glucose 133 126 126 White Blood Count 15.1 H Red Blood Count 3.92 L Hemoglobin 11.3 L Hematocrit 33.3 L Mean Corpuscular Volume 84.9 Mean Corpuscular 28.8 L Hemoglobin Mean Corpuscular 33.9 Hemoglobin Concent Red Cell Distribution 13.0 Width Platelet Count 183 # Mean Platelet Volume 10.0 Immature Granulocytes % 0.700 H Neutrophils % 83.0 H Lymphocytes % 8.1 L Monocytes % 7.7 Eosinophils % 0.3 Basophils % 0.2 Nucleated Red Blood 0.0 Cells % Immature Granulocytes # 0.110 H Neutrophils # 12.6 H Lymphocytes # 1.2 Monocytes # 1.2 H Eosinophils # 0.0 Basophils # 0.0 Nucleated Red Blood 0.0 Cells # Sodium Level 139 Potassium Level 3.9 Chloride Level 105 Carbon Dioxide Level 23 Anion Gap 11 Blood Urea Nitrogen 26 H Creatinine 1.23 Est Glomerular Filtrat 59 L Rate mL/min Glucose Level 121 # Calcium Level 9.1 Phosphorus Level 4.0 Magnesium Level 2.4 Total Bilirubin 2.7 H Direct Bilirubin 0.80 H Indirect Bilirubin 1.9 H Aspartate Amino 342 H Transf (AST/SGOT) Alanine 390 H Aminotransferase (ALT/SG PT) Alkaline Phosphatase 129 H B-Type Natriuretic 8960 H Peptide Total Protein 6.5 Albumin 3.2 L Globulin 3.30 H Albumin/Globulin Ratio 0.96 Vancomycin Level Trough 13.0 Test 07/25/18 06:45 Bedside Glucose 119 Exam/Review of Systems Exam Vitals Vital Signs Date Temp Pulse Resp B/P (MAP) Pulse Ox O2 O2 Flow FiO2 Time Delivery Rate 07/25/18 78 36 146/59 93 Nasal 3.0 06:00 (88) Cannula 07/25/18 98.8 04:00 07/25/18 31 01:45 Intake and Output 07/24/18 07/24/18 07/25/18 1515:00 23:00 07:00 IntakeIntake Total 280 ml 319 ml 244 ml OutputOutput Total 3410 ml 800 ml 560 ml BalanceBalance -3130 ml -481 ml -316 ml Results Results 24hrs Laboratory Tests Test 07/24/18 07:38 07/24/18 08:39 07/24/18 09:45 07/24/18 10:25 Bedside Glucose 157 141 137 132 Test 07/24/18 12:01 07/24/18 13:54 07/24/18 15:09 07/24/18 16:27 Bedside Glucose 105 123 111 113 Test 07/24/18 18:10 07/24/18 19:00 07/24/18 21:06 07/24/18 23:10 Bedside Glucose 128 126 126 130 Test 07/25/18 01:02 07/25/18 03:16 07/25/18 05:00 07/25/18 05:14 Bedside Glucose 133 126 126 White Blood Count 15.1 H Red Blood Count 3.92 L Hemoglobin 11.3 L Hematocrit 33.3 L Mean Corpuscular Volume 84.9 Mean Corpuscular 28.8 L Hemoglobin Mean Corpuscular 33.9 Hemoglobin Concent Red Cell Distribution 13.0 Width Platelet Count 183 # Mean Platelet Volume 10.0 Immature Granulocytes % 0.700 H Neutrophils % 83.0 H Lymphocytes % 8.1 L Monocytes % 7.7 Eosinophils % 0.3 Basophils % 0.2 Nucleated Red Blood 0.0 Cells % Immature Granulocytes # 0.110 H Neutrophils # 12.6 H Lymphocytes # 1.2 Monocytes # 1.2 H Eosinophils # 0.0 Basophils # 0.0 Nucleated Red Blood 0.0 Cells # Sodium Level 139 Potassium Level 3.9 Chloride Level 105 Carbon Dioxide Level 23 Anion Gap 11 Blood Urea Nitrogen 26 H Creatinine 1.23 Est Glomerular Filtrat 59 L Rate mL/min Glucose Level 121 # Calcium Level 9.1 Phosphorus Level 4.0 Magnesium Level 2.4 Total Bilirubin 2.7 H Direct Bilirubin 0.80 H Indirect Bilirubin 1.9 H Aspartate Amino 342 H Transf (AST/SGOT) Alanine 390 H Aminotransferase (ALT/SG PT) Alkaline Phosphatase 129 H B-Type Natriuretic 8960 H Peptide Total Protein 6.5 Albumin 3.2 L Globulin 3.30 H Albumin/Globulin Ratio 0.96 Vancomycin Level Trough 13.0 Test 07/25/18 06:45 Bedside Glucose 119 Medications Medication Current Medications IV Flush (NS 3 ml) 3 ml PER PROTOCOL IV ; Start 07/11/18 at 05:30 Ondansetron HCl (Zofran Inj) 4 mg Q6H PRN IV NAUSEA/VOMITING Last administered on 07/24/18 21:16; Admin Dose 4 MG; Start 07/11/18 at 05:30 Nitroglycerin (Nitroglycerin (Sl Tab) 0.4 Mg) 1 tab Q5M PRN SL .CHEST PAIN; Start 07/11/18 at 05:30 Acetaminophen (Tylenol Tab) 650 mg Q6H PRN PO .PAIN 1-3 OR TEMP Last administered on 07/24/18 12:11; Admin Dose 650 MG; Start 07/11/18 at 05:30 Atorvastatin Calcium (Lipitor) 40 mg HS PO Last administered on 07/24/18 21:16; Admin Dose 40 MG; Start 07/11/18 at 21:00 Simethicone (Mylicon) 80 mg QID PRN GTB DISTENSION/GAS/BLOATING Last administered on 07/16/18 17:28; Admin Dose 80 MG; Start 07/13/18 at 12:30 Guaifenesin (Mucinex) 600 mg BID PO Last administered on 07/24/18 21:16; Admin Dose 600 MG; Start 07/15/18 at 10:30 Sodium Chloride (Deep Sea) 2 spray BID PRN NASAL congestion; Start 07/15/18 at 10:30 Diagnostic Test (Pha) (Accu-Chek) 1 ea Q1H XX Last administered on 07/25/18 07:04; Admin Dose 1 EA; Start 07/20/18 at 21:00 Insulin Human Regular 100 unit/ Sodium Chloride 100 ml @ 0 mls/hr PER PROTOCOL IV Last administered on 07/24/18 10:32; Admin Dose 5 MLS/HR; Start 07/20/18 at 21:00 Miscellaneous Information (* Miscellaneous Pharmacy Order) Treatment of Hypoglycemia: 1.BG 51... Per protocol XX ; Start 07/20/18 at 21:00 Dextrose (D50w Syringe) 25 ml Q15M PRN IV .DECREASED GLUCOSE; Start 07/20/18 at 21:00 Dextrose (D50w Syringe) 50 ml Q15M PRN IV .DECREASED GLUCOSE; Start 07/20/18 at 21:00 Nicardipine HCl 200 ml @ 50 mls/hr TITRATE PRN IV ANESTHESIA; Start 07/20/18 at 21:00 Nitroglycerin/ Dextrose 250 ml @ 1.5 mls/hr TITRATE IV Last administered on 07/24/18at 07:33; Admin Dose 60 MLS/HR; Start 07/20/18 at 22:30 Potassium Chloride 50 ml @ 50 mls/hr SEE DIRECTION PRN IVPB K+ LEVEL Last administered on 07/21/18at 13:44; Admin Dose 50 MLS/HR; Start 07/20/18 at 23:30 Magnesium Sulfate/ Dextrose 100 ml @ 100 mls/hr PRN PRN IVPB PENDING LAB VALUE; Start 07/20/18 at 23:30 Midazolam HCl (Versed) 2 mg Q2H PRN IV AGITATION; Start 07/21/18 at 04:30 Acetaminophen (Tylenol Supp) 650 mg Q4H PRN [place] MILD PAIN(1-3) OR TEMP>38C Last administered on 07/23/18at 17:29; Admin Dose 650 MG; Start 07/21/18 at 04:30 Albumin Human 250 ml @ 500 mls/hr PRN PRN IV CVP< 8, OR SBP<90 Last administered on 07/22/18at 21:42; Admin Dose 500 MLS/HR; Start 07/21/18 at 08:00 Acetaminophen (Tylenol Liquid) 650 mg Q6 PRN NGT MILD PAIN(1-3)OR ELEVATED TEMP Last administered on 07/23/18at 06:10; Admin Dose 650 MG; Start 07/21/18 at 09:00 Pantoprazole (Protonix Iv) 40 mg DAILY@06 IV Last administered on 07/25/18 05:22; Admin Dose 40 MG; Start 07/22/18 at 06:00 Piperacillin Sod/ Tazobactam Sod 100 ml @ 200 mls/hr Q6 IVPB Last administered on 07/25/18 05:22; Admin Dose 200 MLS/HR; Start 07/21/18 at 12:00 Norepinephrine 250 ml @ 1.875 mls/ hr TITRATE IV Last administered on 07/23/18 07:05; Admin Dose 1.875 MLS/HR; Start 07/21/18 at 13:00 Morphine Sulfate (morphine) 1 mg Q4 PRN IV PAIN LEVEL 1-5 Last administered on 07/24/18 22:23; Admin Dose 1 MG; Start 07/22/18 at 11:30 Morphine Sulfate (morphine) 2 mg Q4 PRN IV PAIN LEVEL 6-10 Last administered on 07/23/18 23:17; Admin Dose 2 MG; Start 07/22/18 at 11:30 Aspirin (Aspirin) 81 mg DAILY NGT Last administered on 07/24/18 08:37; Admin Dose 81 MG; Start 07/23/18 at 09:00 Enoxaparin Sodium (Lovenox) 30 mg DAILY SC Last administered on 07/24/18 08:42; Admin Dose 30 MG; Start 07/23/18 at 09:00 Vancomycin HCl (Vanco Iv Per Pharmacy) VANCOMYCIN PER PHARMACY PER PROTOCOL XX ; Start 07/23/18 at 16:00 Vancomycin/Sodium Chloride 250 ml @ 125 mls/hr Q12H IVPB Last administered on 07/25/18 06:39; Admin Dose 125 MLS/HR; Start 07/24/18 at 06:00 Albuterol/ Ipratropium (Duoneb) 3 ml Q6H RESP THERAPY HHN Last administered on 07/25/18 01:27; Admin Dose 3 ML; Start 07/24/18 at 02:00 Albuterol/ Ipratropium (Duoneb) 3 ml Q2H RESP THERAPY PRN HHN sob Last administered on 07/23/18 21:00; Admin Dose 3 ML; Start 07/23/18 at 20:30 Furosemide (Lasix) 40 mg DAILY@0600 IV Last administered on 07/25/18 05:26; Admin Dose 40 MG; Start 07/24/18 at 08:00 Lisinopril (Zestril) 5 mg BID PO Last administered on 07/24/18 21:16; Admin Dose 5 MG; Start 07/24/18 at 14:30 Metoprolol Succinate (Toprol Xl) 25 mg DAILY PO ; Start 07/25/18 at 09:00 LUIS MCCAIN DO Jul 25, 2018 07:33
[2018-07-25] MEDS: ENOXAPARIN 30 MG/0.3 ML SYG SC SCH ×2 (08:48→09:00)
[2018-07-25] MEDS: ASPIRIN 81 MG TAB NGT SCH ×2 (09:00→09:37)
--- NOTE | 2018-07-25 09:20 | PN ---
Date/Time of Note Date/Time of Note DATE: 07/25/18 TIME: :19 Objective Vitals Vital Signs Date Temp Pulse Resp B/P (MAP) Pulse Ox O2 O2 Flow FiO2 Time Delivery Rate 07/25/18 78 36 146/59 93 Nasal 3.0 06:00 (88) Cannula 07/25/18 98.8 04:00 07/25/18 31 01:45 Intake and Output 07/24/18 07/24/18 07/25/18 1515:00 23:00 07:00 IntakeIntake Total 280 ml 319 ml 244 ml OutputOutput Total 3410 ml 800 ml 560 ml BalanceBalance -3130 ml -481 ml -316 ml Results Result Diagram: 07/25/18 0500 07/25/18 0500 Medications Medications Current Medications IV Flush (NS 3 ml) 3 ml PER PROTOCOL IV ; Start 07/11/18 at 05:30 Ondansetron HCl (Zofran Inj) 4 mg Q6H PRN IV NAUSEA/VOMITING Last administered on 07/24/18 21:16; Admin Dose 4 MG; Start 07/11/18 at 05:30 Nitroglycerin (Nitroglycerin (Sl Tab) 0.4 Mg) 1 tab Q5M PRN SL .CHEST PAIN; Start 07/11/18 at 05:30 Acetaminophen (Tylenol Tab) 650 mg Q6H PRN PO .PAIN 1-3 OR TEMP Last administered on 07/24/18at 12:11; Admin Dose 650 MG; Start 07/11/18 at 05:30 Atorvastatin Calcium (Lipitor) 40 mg HS PO Last administered on 07/24/18at 21:16; Admin Dose 40 MG; Start 07/11/18 at 21:00 Simethicone (Mylicon) 80 mg QID PRN GTB DISTENSION/GAS/BLOATING Last administered on 07/16/18at 17:28; Admin Dose 80 MG; Start 07/13/18 at 12:30 Guaifenesin (Mucinex) 600 mg BID PO Last administered on 07/24/18 21:16; Admin Dose 600 MG; Start 07/15/18 at 10:30 Sodium Chloride (Deep Sea) 2 spray BID PRN NASAL congestion; Start 07/15/18 at 10:30 Diagnostic Test (Pha) (Accu-Chek) 1 ea Q1H XX Last administered on 07/25/18 07:04; Admin Dose 1 EA; Start 07/20/18 at 21:00 Insulin Human Regular 100 unit/ Sodium Chloride 100 ml @ 0 mls/hr PER PROTOCOL IV Last administered on 07/24/18at 10:32; Admin Dose 5 MLS/HR; Start 07/20/18 at 21:00 Miscellaneous Information (* Miscellaneous Pharmacy Order) Treatment of Hypoglycemia: 1.BG 51... Per protocol XX ; Start 07/20/18 at 21:00 Dextrose (D50w Syringe) 25 ml Q15M PRN IV .DECREASED GLUCOSE; Start 07/20/18 at 21:00 Dextrose (D50w Syringe) 50 ml Q15M PRN IV .DECREASED GLUCOSE; Start 07/20/18 at 21:00 Nicardipine HCl 200 ml @ 50 mls/hr TITRATE PRN IV ANESTHESIA; Start 07/20/18 at 21:00 Nitroglycerin/ Dextrose 250 ml @ 1.5 mls/hr TITRATE IV Last administered on 07/24/18at 07:33; Admin Dose 60 MLS/HR; Start 07/20/18 at 22:30 Potassium Chloride 50 ml @ 50 mls/hr SEE DIRECTION PRN IVPB K+ LEVEL Last administered on 07/21/18at 13:44; Admin Dose 50 MLS/HR; Start 07/20/18 at 23:30 Magnesium Sulfate/ Dextrose 100 ml @ 100 mls/hr PRN PRN IVPB PENDING LAB VALUE; Start 07/20/18 at 23:30 Midazolam HCl (Versed) 2 mg Q2H PRN IV AGITATION; Start 07/21/18 at 04:30 Acetaminophen (Tylenol Supp) 650 mg Q4H PRN [place] MILD PAIN(1-3) OR TEMP>38C Last administered on 07/23/18at 17:29; Admin Dose 650 MG; Start 07/21/18 at 04:30 Albumin Human 250 ml @ 500 mls/hr PRN PRN IV CVP< 8, OR SBP<90 Last administered on 07/22/18at 21:42; Admin Dose 500 MLS/HR; Start 07/21/18 at 08:00 Acetaminophen (Tylenol Liquid) 650 mg Q6 PRN NGT MILD PAIN(1-3)OR ELEVATED TEMP Last administered on 07/23/18 06:10; Admin Dose 650 MG; Start 07/21/18 at 09:00 Pantoprazole (Protonix Iv) 40 mg DAILY@06 IV Last administered on 07/25/18 05:22; Admin Dose 40 MG; Start 07/22/18 at 06:00 Piperacillin Sod/ Tazobactam Sod 100 ml @ 200 mls/hr Q6 IVPB Last administered on 07/25/18 05:22; Admin Dose 200 MLS/HR; Start 07/21/18 at 12:00 Norepinephrine 250 ml @ 1.875 mls/ hr TITRATE IV Last administered on 07/23/18 07:05; Admin Dose 1.875 MLS/HR; Start 07/21/18 at 13:00 Morphine Sulfate (morphine) 1 mg Q4 PRN IV PAIN LEVEL 1-5 Last administered on 07/24/18 22:23; Admin Dose 1 MG; Start 07/22/18 at 11:30 Morphine Sulfate (morphine) 2 mg Q4 PRN IV PAIN LEVEL 6-10 Last administered on 07/23/18 23:17; Admin Dose 2 MG; Start 07/22/18 at 11:30 Aspirin (Aspirin) 81 mg DAILY NGT Last administered on 07/24/18 08:37; Admin Dose 81 MG; Start 07/23/18 at 09:00 Enoxaparin Sodium (Lovenox) 30 mg DAILY SC Last administered on 07/24/18 08:42; Admin Dose 30 MG; Start 07/23/18 at 09:00 Vancomycin HCl (Vanco Iv Per Pharmacy) VANCOMYCIN PER PHARMACY PER PROTOCOL XX ; Start 07/23/18 at 16:00 Vancomycin/Sodium Chloride 250 ml @ 125 mls/hr Q12H IVPB Last administered on 07/25/18 06:39; Admin Dose 125 MLS/HR; Start 07/24/18 at 06:00 Albuterol/ Ipratropium (Duoneb) 3 ml Q6H RESP THERAPY HHN Last administered on 07/25/18 01:27; Admin Dose 3 ML; Start 07/24/18 at 02:00 Albuterol/ Ipratropium (Duoneb) 3 ml Q2H RESP THERAPY PRN HHN sob Last administered on 07/23/18 21:00; Admin Dose 3 ML; Start 07/23/18 at 20:30 Furosemide (Lasix) 40 mg DAILY@0600 IV Last administered on 07/25/18at 05:26; Admin Dose 40 MG; Start 07/24/18 at 08:00 Lisinopril (Zestril) 5 mg BID PO Last administered on 07/24/18at 21:16; Admin Dose 5 MG; Start 07/24/18 at 14:30 Metoprolol Succinate (Toprol Xl) 25 mg DAILY PO ; Start 07/25/18 at 09:00 VTE Prophylaxis Risk score (from Ns)>0 risk: 6 SCD applied (from [facility] [place]): Yes Pharmacological prophylaxis: other Lines/Catheters IV Catheter Type: Galindo in Place: Yes Cont'd galindo catheter reason: terminal illness/intractable pain Assessment/Plan Hospital Course Subjective extubated, some SOB, but overall improving slightly Objective Physical exam General: Patient is laying in bed, answers questions Mentation: Patient is alert and oriented Head: Normocephalic atraumatic Eyes: EOMI, pupils reactive to light Neck: Supple, nontender, midline Respiratory: Clear to auscultation bilaterally Cardiovascular: regular rate, no obvious murmurs Gastrointestinal: non-tender to palpation, bowel sounds heard. Neurological: Moves all extremities spontaneously Skin: surgical site bandaged, CDI, Assessment/Plan CAD with unstable angina s/p 3V CABG 07/20/18 - CT surgery on board and appreciate consultation - Continue cardiac meds with aspirin, statin, metoprolol, lisinopril when able - Plavix/aspirin to restart when ok with cards/CT surgery acute hypoxic resp distress -2/2 to above CABG -extubated now, on NC hypotension -2/2 CABG -off pressors Hypertension -now on nitro drip, titrate off as able fever/white count -blood cultures done -still cont empiric abx Uncontrolled diabetes - A1c at OSH noted to be 12.3 - Diabetic education consultation appreciated - Lantus and Novolog on board and adjustments made for better control - Upon d/c will give Metformin/Jardiance, Basaglar and Novolog- per DM educator recommendation Hypertension - Continue current medications Cough with congestion - Mucinex for relief - Nasal saline PRN Disposition over 40 minutes of critical care time spent on this evaluation -cont ICU stay FREDIS FALLON Jul 25, 2018 09:20
--- NOTE | 2018-07-25 09:21 | PN ---
Date/Time of Note Date/Time of Note DATE: 07/25/18 TIME: :19 Assessment/Plan Lines/Catheters IV Catheter Type (from Nrsg): Cordis Roa in Place (from Nrsg): Yes Assessment/Plan Assessment/Plan Status post coronary artery bypass grafting Hemodynamically stable woke up Follows command CT removed pleural effusion Thoracentesis today Subjective 24 Hr Interval Summary Constitutional: improved Pain Control: mild Exam/Review of Systems Vital Signs Vitals Vital Signs Date Temp Pulse Resp B/P (MAP) Pulse Ox O2 O2 Flow FiO2 Time Delivery Rate 07/25/18 78 36 146/59 93 Nasal 3.0 06:00 (88) Cannula 07/25/18 98.8 04:00 07/25/18 31 01:45 Intake and Output 07/24/18 07/24/18 07/25/18 1414:59 22:59 06:59 IntakeIntake Total 329 ml 336 ml 244 ml OutputOutput Total 3286 ml 920 ml 640 ml BalanceBalance -2957 ml -584 ml -396 ml Exam Eyes: nl conjunctiva, EOMI, nl lids, nl sclera ENMT: nl external ears & nose, nl lips & teeth, nl nasal mucosa & septum, mucosa pink and moist Neck: supple, non-tender Respiratory: clear to auscultation, normal air movement Cardiovascular: regular rate and rhythm, nl pulses Gastrointestinal: soft, nl liver, spleen, non-tender Musculoskeletal: nl extremities to inspection, nl gait and stance Extremities: normal pulses Results Result Diagram: 07/25/18 0500 07/25/18 0500 VANIA LAMB MD Jul 25, 2018 09:21
[2018-07-25] MEDS: GUAIFENESIN LA 600 MG TABSR PO SCH ×2 (09:22→21:42)
[2018-07-25] MEDS: METOPROLOL (XL) 25 MG TAB PO SCH (09:22)
[2018-07-25] MEDS: morphine 2 MG INJ IV PRN (09:23)
[2018-07-25] MEDS: LISINOPRIL 5 MG TAB PO SCH ×2 (09:23→21:42)
--- NOTE | 2018-07-25 09:45 | CONS ---
Assessment/Plan Assessment/Plan Hospital Course (Demo Recall) ID PROGRESS NOTE CURRENT ABX: DAY # Vanco IV + Zosyn 07/25/18 0500 07/25/18 0500 24H INTERVAL SUMMARY POD #5: Procedure Date: Jul 20, 2018=> 3V CABG (GODFREY>LAD, SVG>D1, SVG>OM)+ Thymectomy * OOB -> Chair, Low grade temps, extubated, no respiratory cx sent prior to extubation * Awake, alert, responds appropriately -- follows commands * CT removed=> pleural effusion: Thoracentesis today DIAGNOSTIC IMAGING * 07/25/18 CXR: Interstitial edema suggesting cardiopulmonary congestion is improving. Moderate left-sided pleural effusion and associated consolidation are slightly improved. MICRO/OTHER * Microbiology: All cultures have been negative PHYSICAL EXAMINATION: GENERAL: VSS HEENT: AT, NC, anicteric NECK: Supple, CHEST: Equal chest rise bilaterally, without dyspnea on observation HEART: Pulse RRR ABDOMEN: Soft / NT EXTREMITIES: Warm, dry SKIN: No rash, no diaphoresis ID ASSESSMENT 68 yo M admit with: 1. SIRS vs sepsis with postoperative fevers, likely pulmonary source, possibly secondary to multiple lines 2. Multivessel coronary artery disease * POD #5: Procedure Date: Jul 20, 2018=> 3V CABG (GODFREY>LAD, SVG>D1, SVG>OM)+ Thymectomy 3. Diabetes 4. Acute kidney insufficiency (-)MRSA Nares ABX ALLERGIES: KNDA INVASIVES: PIV right IJ triple-lumen catheter with introducer, Roa CURRENT ABX: DAY # ID RECOMMENDATIONS/PLAN: 1. Continue current ABX -- consider de-escalate Vanco IV + Zosyn combo SERGE - taper to Cefepime if ID colleague concurs . Consultation Date/Type/Reason Admit Date/Time Jul 11, 2018 at 04:15 Initial Consult Date 07/17/18 Requesting Provider: VANIA LAMB MD Date/Time of Note DATE: 07/25/18 TIME: 09:45 Exam/Review of Systems Exam Vitals Vital Signs Date Temp Pulse Resp B/P (MAP) Pulse Ox O2 O2 Flow FiO2 Time Delivery Rate 07/25/18 78 36 146/59 93 Nasal 3.0 06:00 (88) Cannula 07/25/18 98.8 04:00 07/25/18 31 01:45 Intake and Output 07/24/18 07/24/18 07/25/18 1515:00 23:00 07:00 IntakeIntake Total 280 ml 319 ml 244 ml OutputOutput Total 3410 ml 800 ml 560 ml BalanceBalance -3130 ml -481 ml -316 ml Results Result Diagram: 07/25/18 0500 07/25/18 0500 Results 24hrs Laboratory Tests Test 07/24/18 10:25 07/24/18 12:01 07/24/18 13:54 07/24/18 15:09 Bedside Glucose 132 105 123 111 Test 07/24/18 16:27 07/24/18 18:10 07/24/18 19:00 07/24/18 21:06 Bedside Glucose 113 128 126 126 Test 07/24/18 23:10 07/25/18 01:02 07/25/18 03:16 07/25/18 05:00 Bedside Glucose 130 133 126 White Blood Count 15.1 H Red Blood Count 3.92 L Hemoglobin 11.3 L Hematocrit 33.3 L Mean Corpuscular Volume 84.9 Mean Corpuscular 28.8 L Hemoglobin Mean Corpuscular 33.9 Hemoglobin Concent Red Cell Distribution 13.0 Width Platelet Count 183 # Mean Platelet Volume 10.0 Immature Granulocytes % 0.700 H Neutrophils % 83.0 H Lymphocytes % 8.1 L Monocytes % 7.7 Eosinophils % 0.3 Basophils % 0.2 Nucleated Red Blood 0.0 Cells % Immature Granulocytes # 0.110 H Neutrophils # 12.6 H Lymphocytes # 1.2 Monocytes # 1.2 H Eosinophils # 0.0 Basophils # 0.0 Nucleated Red Blood 0.0 Cells # Sodium Level 139 Potassium Level 3.9 Chloride Level 105 Carbon Dioxide Level 23 Anion Gap 11 Blood Urea Nitrogen 26 H Creatinine 1.23 Est Glomerular Filtrat 59 L Rate mL/min Glucose Level 121 # Calcium Level 9.1 Phosphorus Level 4.0 Magnesium Level 2.4 Total Bilirubin 2.7 H Direct Bilirubin 0.80 H Indirect Bilirubin 1.9 H Aspartate Amino 342 H Transf (AST/SGOT) Alanine 390 H Aminotransferase (ALT/SG PT) Alkaline Phosphatase 129 H B-Type Natriuretic 8960 H Peptide Total Protein 6.5 Albumin 3.2 L Globulin 3.30 H Albumin/Globulin Ratio 0.96 Vancomycin Level Trough 13.0 Test 07/25/18 05:14 07/25/18 06:45 07/25/18 09:22 Bedside Glucose 126 119 108 Medications Medication Current Medications IV Flush (NS 3 ml) 3 ml PER PROTOCOL IV ; Start 07/11/18 at 05:30 Ondansetron HCl (Zofran Inj) 4 mg Q6H PRN IV NAUSEA/VOMITING Last administered on 07/24/18 21:16; Admin Dose 4 MG; Start 07/11/18 at 05:30 Nitroglycerin (Nitroglycerin (Sl Tab) 0.4 Mg) 1 tab Q5M PRN SL .CHEST PAIN; Start 07/11/18 at 05:30 Acetaminophen (Tylenol Tab) 650 mg Q6H PRN PO .PAIN 1-3 OR TEMP Last administered on 07/24/18 12:11; Admin Dose 650 MG; Start 07/11/18 at 05:30 Atorvastatin Calcium (Lipitor) 40 mg HS PO Last administered on 07/24/18 21:16; Admin Dose 40 MG; Start 07/11/18 at 21:00 Simethicone (Mylicon) 80 mg QID PRN GTB DISTENSION/GAS/BLOATING Last a dministered on 07/16/18 17:28; Admin Dose 80 MG; Start 07/13/18 at 12:30 Guaifenesin (Mucinex) 600 mg BID PO Last administered on 07/25/18 09:22; Admin Dose 600 MG; Start 07/15/18 at 10:30 Sodium Chloride (Deep Sea) 2 spray BID PRN NASAL congestion; Start 07/15/18 at 10:30 Diagnostic Test (Pha) (Accu-Chek) 1 ea Q1H XX Last administered on 07/25/18 09:22; Admin Dose 1 EA; Start 07/20/18 at 21:00 Insulin Human Regular 100 unit/ Sodium Chloride 100 ml @ 0 mls/hr PER PROTOCOL IV Last administered on 07/24/18 10:32; Admin Dose 5 MLS/HR; Start 07/20/18 at 21:00 Miscellaneous Information (* Miscellaneous Pharmacy Order) Treatment of Hypoglycemia: 1.BG 51... Per protocol XX ; Start 07/20/18 at 21:00 Dextrose (D50w Syringe) 25 ml Q15M PRN IV .DECREASED GLUCOSE; Start 07/20/18 at 21:00 Dextrose (D50w Syringe) 50 ml Q15M PRN IV .DECREASED GLUCOSE; Start 07/20/18 at 21:00 Nicardipine HCl 200 ml @ 50 mls/hr TITRATE PRN IV ANESTHESIA; Start 07/20/18 at 21:00 Nitroglycerin/ Dextrose 250 ml @ 1.5 mls/hr TITRATE IV Last administered on 07/24/18at 07:33; Admin Dose 60 MLS/HR; Start 07/20/18 at 22:30 Potassium Chloride 50 ml @ 50 mls/hr SEE DIRECTION PRN IVPB K+ LEVEL Last administered on 07/21/18at 13:44; Admin Dose 50 MLS/HR; Start 07/20/18 at 23:30 Magnesium Sulfate/ Dextrose 100 ml @ 100 mls/hr PRN PRN IVPB PENDING LAB VALUE; Start 07/20/18 at 23:30 Midazolam HCl (Versed) 2 mg Q2H PRN IV AGITATION; Start 07/21/18 at 04:30 Acetaminophen (Tylenol Supp) 650 mg Q4H PRN [place] MILD PAIN(1-3) OR TEMP>38C Last administered on 07/23/18at 17:29; Admin Dose 650 MG; Start 07/21/18 at 04:30 Albumin Human 250 ml @ 500 mls/hr PRN PRN IV CVP< 8, OR SBP<90 Last administered on 07/22/18at 21:42; Admin Dose 500 MLS/HR; Start 07/21/18 at 08:00 Acetaminophen (Tylenol Liquid) 650 mg Q6 PRN NGT MILD PAIN(1-3)OR ELEVATED TEMP Last administered on 07/23/18at 06:10; Admin Dose 650 MG; Start 07/21/18 at 09:00 Pantoprazole (Protonix Iv) 40 mg DAILY@06 IV Last administered on 07/25/18 05:22; Admin Dose 40 MG; Start 07/22/18 at 06:00 Piperacillin Sod/ Tazobactam Sod 100 ml @ 200 mls/hr Q6 IVPB Last administered on 07/25/18 05:22; Admin Dose 200 MLS/HR; Start 07/21/18 at 12:00 Norepinephrine 250 ml @ 1.875 mls/ hr TITRATE IV Last administered on 07/23/18 07:05; Admin Dose 1.875 MLS/HR; Start 07/21/18 at 13:00 Morphine Sulfate (morphine) 1 mg Q4 PRN IV PAIN LEVEL 1-5 Last administered on 07/24/18 22:23; Admin Dose 1 MG; Start 07/22/18 at 11:30 Morphine Sulfate (morphine) 2 mg Q4 PRN IV PAIN LEVEL 6-10 Last administered on 07/25/18 09:23; Admin Dose 2 MG; Start 07/22/18 at 11:30 Aspirin (Aspirin) 81 mg DAILY NGT Last administered on 07/25/18 09:37; Admin Dose 81 MG; Start 07/23/18 at 09:00 Enoxaparin Sodium (Lovenox) 30 mg DAILY SC Last administered on 07/24/18 08:42; Admin Dose 30 MG; Start 07/23/18 at 09:00 Vancomycin HCl (Vanco Iv Per Pharmacy) VANCOMYCIN PER PHARMACY PER PROTOCOL XX ; Start 07/23/18 at 16:00 Vancomycin/Sodium Chloride 250 ml @ 125 mls/hr Q12H IVPB Last administered on 07/25/18 06:39; Admin Dose 125 MLS/HR; Start 07/24/18 at 06:00 Albuterol/ Ipratropium (Duoneb) 3 ml Q6H RESP THERAPY HHN Last administered on 07/25/18 01:27; Admin Dose 3 ML; Start 07/24/18 at 02:00 Albuterol/ Ipratropium (Duoneb) 3 ml Q2H RESP THERAPY PRN HHN sob Last administered on 07/23/18 21:00; Admin Dose 3 ML; Start 07/23/18 at 20:30 Furosemide (Lasix) 40 mg DAILY@0600 IV Last administered on 07/25/18 05:26; Admin Dose 40 MG; Start 07/24/18 at 08:00 Lisinopril (Zestril) 5 mg BID PO Last administered on 07/25/18 09:23; Admin Dose 5 MG; Start 07/24/18 at 14:30 Metoprolol Succinate (Toprol Xl) 25 mg DAILY PO Last administered on 07/25/18 09:22; Admin Dose 25 MG; Start 07/25/18 at 09:00 TONY ESCOBAR NP Jul 25, 2018 09:45
--- NOTE | 2018-07-25 10:16 | CONS ---
Consult Date/Type/Reason Admit Date/Time Jul 11, 2018 at 04:15 Initial Consult Date 07/17/18 Type of Consultation: Pulm/CCM Requesting Provider: VANIA LAMB MD Date/Time of Note DATE: 07/25/18 TIME: 10:14 Subjective No events. Extubated on NC. Currently sleeping comfortably. Objective Vitals Vital Signs Date Temp Pulse Resp B/P (MAP) Pulse Ox O2 O2 Flow FiO2 Time Delivery Rate 07/25/18 75 08:00 07/25/18 36 146/59 93 Nasal 3.0 06:00 (88) Cannula 07/25/18 98.8 04:00 07/25/18 31 01:45 Intake and Output 07/24/18 07/24/18 07/25/18 1515:00 23:00 07:00 IntakeIntake Total 280 ml 319 ml 244 ml OutputOutput Total 3410 ml 800 ml 560 ml BalanceBalance -3130 ml -481 ml -316 ml Exam HEENT: Neck supple; no JVD; no LAD CVS: RRR, S1 and S2 CHEST: Diminished BS at bases ABD: Soft, NT, + BS EXT: No c/c/e Results/Medications Result Diagram: 07/25/18 0500 07/25/18 0500 Results 24 hrs Laboratory Tests Test 07/24/18 10:25 07/24/18 12:01 07/24/18 13:54 07/24/18 15:09 Bedside Glucose 132 105 123 111 Test 07/24/18 16:27 07/24/18 18:10 07/24/18 19:00 07/24/18 21:06 Bedside Glucose 113 128 126 126 Test 07/24/18 23:10 07/25/18 01:02 07/25/18 03:16 07/25/18 05:00 Bedside Glucose 130 133 126 White Blood Count 15.1 H Red Blood Count 3.92 L Hemoglobin 11.3 L Hematocrit 33.3 L Mean Corpuscular Volume 84.9 Mean Corpuscular 28.8 L Hemoglobin Mean Corpuscular 33.9 Hemoglobin Concent Red Cell Distribution 13.0 Width Platelet Count 183 # Mean Platelet Volume 10.0 Immature Granulocytes % 0.700 H Neutrophils % 83.0 H Lymphocytes % 8.1 L Monocytes % 7.7 Eosinophils % 0.3 Basophils % 0.2 Nucleated Red Blood 0.0 Cells % Immature Granulocytes # 0.110 H Neutrophils # 12.6 H Lymphocytes # 1.2 Monocytes # 1.2 H Eosinophils # 0.0 Basophils # 0.0 Nucleated Red Blood 0.0 Cells # Sodium Level 139 Potassium Level 3.9 Chloride Level 105 Carbon Dioxide Level 23 Anion Gap 11 Blood Urea Nitrogen 26 H Creatinine 1.23 Est Glomerular Filtrat 59 L Rate mL/min Glucose Level 121 # Calcium Level 9.1 Phosphorus Level 4.0 Magnesium Level 2.4 Total Bilirubin 2.7 H Direct Bilirubin 0.80 H Indirect Bilirubin 1.9 H Aspartate Amino 342 H Transf (AST/SGOT) Alanine 390 H Aminotransferase (ALT/SG PT) Alkaline Phosphatase 129 H B-Type Natriuretic 8960 H Peptide Total Protein 6.5 Albumin 3.2 L Globulin 3.30 H Albumin/Globulin Ratio 0.96 Vancomycin Level Trough 13.0 Test 07/25/18 05:14 07/25/18 06:45 07/25/18 09:22 Bedside Glucose 126 119 108 Medications Current Medications IV Flush (NS 3 ml) 3 ml PER PROTOCOL IV ; Start 07/11/18 at 05:30 Ondansetron HCl (Zofran Inj) 4 mg Q6H PRN IV NAUSEA/VOMITING Last administered on 07/24/18 21:16; Admin Dose 4 MG; Start 07/11/18 at 05:30 Nitroglycerin (Nitroglycerin (Sl Tab) 0.4 Mg) 1 tab Q5M PRN SL .CHEST PAIN; Start 07/11/18 at 05:30 Acetaminophen (Tylenol Tab) 650 mg Q6H PRN PO .PAIN 1-3 OR TEMP Last administered on 07/24/18at 12:11; Admin Dose 650 MG; Start 07/11/18 at 05:30 Atorvastatin Calcium (Lipitor) 40 mg HS PO Last administered on 07/24/18 21:16; Admin Dose 40 MG; Start 07/11/18 at 21:00 Simethicone (Mylicon) 80 mg QID PRN GTB DISTENSION/GAS/BLOATING Last administered on 07/16/18 17:28; Admin Dose 80 MG; Start 07/13/18 at 12:30 Guaifenesin (Mucinex) 600 mg BID PO Last administered on 07/25/18 09:22; Admin Dose 600 MG; Start 07/15/18 at 10:30 Sodium Chloride (Deep Sea) 2 spray BID PRN NASAL congestion; Start 07/15/18 at 10:30 Diagnostic Test (Pha) (Accu-Chek) 1 ea Q1H XX Last administered on 07/25/18 09:22; Admin Dose 1 EA; Start 07/20/18 at 21:00 Insulin Human Regular 100 unit/ Sodium Chloride 100 ml @ 0 mls/hr PER PROTOCOL IV Last administered on 07/24/18at 10:32; Admin Dose 5 MLS/HR; Start 07/20/18 at 21:00 Miscellaneous Information (* Miscellaneous Pharmacy Order) Treatment of Hypoglycemia: 1.BG 51... Per protocol XX ; Start 07/20/18 at 21:00 Dextrose (D50w Syringe) 25 ml Q15M PRN IV .DECREASED GLUCOSE; Start 07/20/18 at 21:00 Dextrose (D50w Syringe) 50 ml Q15M PRN IV .DECREASED GLUCOSE; Start 07/20/18 at 21:00 Nicardipine HCl 200 ml @ 50 mls/hr TITRATE PRN IV ANESTHESIA; Start 07/20/18 at 21:00 Nitroglycerin/ Dextrose 250 ml @ 1.5 mls/hr TITRATE IV Last administered on 07/24/18at 07:33; Admin Dose 60 MLS/HR; Start 07/20/18 at 22:30 Potassium Chloride 50 ml @ 50 mls/hr SEE DIRECTION PRN IVPB K+ LEVEL Last administered on 07/21/18at 13:44; Admin Dose 50 MLS/HR; Start 07/20/18 at 23:30 Magnesium Sulfate/ Dextrose 100 ml @ 100 mls/hr PRN PRN IVPB PENDING LAB VALUE; Start 07/20/18 at 23:30 Midazolam HCl (Versed) 2 mg Q2H PRN IV AGITATION; Start 07/21/18 at 04:30 Acetaminophen (Tylenol Supp) 650 mg Q4H PRN [place] MILD PAIN(1-3) OR TEMP>38C Last administered on 07/23/18at 17:29; Admin Dose 650 MG; Start 07/21/18 at 04:30 Albumin Human 250 ml @ 500 mls/hr PRN PRN IV CVP< 8, OR SBP<90 Last administered on 07/22/18at 21:42; Admin Dose 500 MLS/HR; Start 07/21/18 at 08:00 Acetaminophen (Tylenol Liquid) 650 mg Q6 PRN NGT MILD PAIN(1-3)OR ELEVATED TEMP Last administered on 07/23/18 06:10; Admin Dose 650 MG; Start 07/21/18 at 09:00 Pantoprazole (Protonix Iv) 40 mg DAILY@06 IV Last administered on 07/25/18 05:2 2; Admin Dose 40 MG; Start 07/22/18 at 06:00 Piperacillin Sod/ Tazobactam Sod 100 ml @ 200 mls/hr Q6 IVPB Last administered on 07/25/18 05:22; Admin Dose 200 MLS/HR; Start 07/21/18 at 12:00 Norepinephrine 250 ml @ 1.875 mls/ hr TITRATE IV Last administered on 07/23/18 07:05; Admin Dose 1.875 MLS/HR; Start 07/21/18 at 13:00 Morphine Sulfate (morphine) 1 mg Q4 PRN IV PAIN LEVEL 1-5 Last administered on 07/24/18 22:23; Admin Dose 1 MG; Start 07/22/18 at 11:30 Morphine Sulfate (morphine) 2 mg Q4 PRN IV PAIN LEVEL 6-10 Last administered on 07/25/18 09:23; Admin Dose 2 MG; Start 07/22/18 at 11:30 Aspirin (Aspirin) 81 mg DAILY NGT Last administered on 07/25/18 09:37; Admin Dose 81 MG; Start 07/23/18 at 09:00 Enoxaparin Sodium (Lovenox) 30 mg DAILY SC Last administered on 07/24/18 08:42; Admin Dose 30 MG; Start 07/23/18 at 09:00 Vancomycin HCl (Vanco Iv Per Pharmacy) VANCOMYCIN PER PHARMACY PER PROTOCOL XX ; Start 07/23/18 at 16:00 Vancomycin/Sodium Chloride 250 ml @ 125 mls/hr Q12H IVPB Last administered on 07/25/18 06:39; Admin Dose 125 MLS/HR; Start 07/24/18 at 06:00 Albuterol/ Ipratropium (Duoneb) 3 ml Q6H RESP THERAPY HHN Last administered on 07/25/18 01:27; Admin Dose 3 ML; Start 07/24/18 at 02:00 Albuterol/ Ipratropium (Duoneb) 3 ml Q2H RESP THERAPY PRN HHN sob Last ad ministered on 07/23/18at 21:00; Admin Dose 3 ML; Start 07/23/18 at 20:30 Furosemide (Lasix) 40 mg DAILY@0600 IV Last administered on 07/25/18at 05:26; Admin Dose 40 MG; Start 07/24/18 at 08:00 Lisinopril (Zestril) 5 mg BID PO Last administered on 07/25/18at 09:23; Admin Dose 5 MG; Start 07/24/18 at 14:30 Metoprolol Succinate (Toprol Xl) 25 mg DAILY PO Last administered on 07/25/18at 09:22; Admin Dose 25 MG; Start 07/25/18 at 09:00 Assessment/Plan Assessment/Plan (Daily) IMP: 1. Multivessel coronary artery disease, status post coronary artery bypass graft, postoperative day 4. 2. Prior significant tobacco history, likely underlying chronic obstructive pulmonary disease (COPD). Postop left effusion versus infiltrate. 3. Diabetes mellitus, poorly controlled, glycemic management prior to surgery. 4. Status post thymectomy. 5. Status post cardiogenic shock 6. Left > right pleural effusion--likely post-CABG Plan 1. Incentive spirometry and aspiration precautions 2. U/S-guide left thoracentesis today 3. PT eval encourage out of bed 4. Antibiotics for presumed pneumonia 5. Deep venous thrombosis (DVT) and gastrointestinal (GI) prophylaxis. Critical care time 40 minutes. CHINEDU PINZON MD Jul 25, 2018 10:16
--- NOTE | 2018-07-25 10:51 | CONS ---
Assessment/Plan Assessment/Plan Assessment/Plan (Daily) 1. Unstable angina 2. Multivessel coronary artery disease 3. 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 Diabetes 5. History of hypertension 6. Anemia 7. Postop respiratory failure currently intubated 8. POST OP FEVER : improved Recommendations: Respiratory care will be continued managed as per pulm. Thoracenteisis today Continue with insulin Continue cv meds asa daily abx as per ID rec Consultation Date/Type/Reason Admit Date/Time Jul 11, 2018 at 04:15 Initial Consult Date 07/17/18 Type of Consult Cardiology Requesting Provider: VANIA LAMB MD Date/Time of Note DATE: 07/25/18 TIME: 10:50 24 HR Interval Summary Free Text/Dictation The patient improving Exam/Review of Systems Vital Signs Vitals Vital Signs Date Temp Pulse Resp B/P (MAP) Pulse Ox O2 O2 Flow FiO2 Time Delivery Rate 07/25/18 75 27 134/65 96 Nasal 3.0 10:00 (88) Cannula 07/25/18 98.1 08:00 07/25/18 31 01:45 Intake and Output 07/24/18 07/24/18 07/25/18 1414:59 22:59 06:59 IntakeIntake Total 329 ml 336 ml 244 ml OutputOutput Total 3286 ml 920 ml 640 ml BalanceBalance -2957 ml -584 ml -396 ml Labs Result Diagram: 07/25/18 0500 07/25/18 0500 Results 24hrs Laboratory Tests Test 07/24/18 12:01 07/24/18 13:54 07/24/18 15:09 07/24/18 16:27 Bedside Glucose 105 123 111 113 Test 07/24/18 18:10 07/24/18 19:00 07/24/18 21:06 07/24/18 23:10 Bedside Glucose 128 126 126 130 Test 07/25/18 01:02 07/25/18 03:16 07/25/18 05:00 07/25/18 05:14 Bedside Glucose 133 126 126 White Blood Count 15.1 H Red Blood Count 3.92 L Hemoglobin 11.3 L Hematocrit 33.3 L Mean Corpuscular Volume 84.9 Mean Corpuscular 28.8 L Hemoglobin Mean Corpuscular 33.9 Hemoglobin Concent Red Cell Distribution 13.0 Width Platelet Count 183 # Mean Platelet Volume 10.0 Immature Granulocytes % 0.700 H Neutrophils % 83.0 H Lymphocytes % 8.1 L Monocytes % 7.7 Eosinophils % 0.3 Basophils % 0.2 Nucleated Red Blood 0.0 Cells % Immature Granulocytes # 0.110 H Neutrophils # 12.6 H Lymphocytes # 1.2 Monocytes # 1.2 H Eosinophils # 0.0 Basophils # 0.0 Nucleated Red Blood 0.0 Cells # Sodium Level 139 Potassium Level 3.9 Chloride Level 105 Carbon Dioxide Level 23 Anion Gap 11 Blood Urea Nitrogen 26 H Creatinine 1.23 Est Glomerular Filtrat 59 L Rate mL/min Glucose Level 121 # Calcium Level 9.1 Phosphorus Level 4.0 Magnesium Level 2.4 Total Bilirubin 2.7 H Direct Bilirubin 0.80 H Indirect Bilirubin 1.9 H Aspartate Amino 342 H Transf (AST/SGOT) Alanine 390 H Aminotransferase (ALT/SG PT) Alkaline Phosphatase 129 H B-Type Natriuretic 8960 H Peptide Total Protein 6.5 Albumin 3.2 L Globulin 3.30 H Albumin/Globulin Ratio 0.96 Vancomycin Level Trough 13.0 Test 07/25/18 06:45 07/25/18 09:22 Bedside Glucose 119 108 Medications Medications Current Medications IV Flush (NS 3 ml) 3 ml PER PROTOCOL IV ; Start 07/11/18 at 05:30 Ondansetron HCl (Zofran Inj) 4 mg Q6H PRN IV NAUSEA/VOMITING Last administered on 07/24/18 21:16; Admin Dose 4 MG; Start 07/11/18 at 05:30 Nitroglycerin (Nitroglycerin (Sl Tab) 0.4 Mg) 1 tab Q5M PRN SL .CHEST PAIN; Start 07/11/18 at 05:30 Acetaminophen (Tylenol Tab) 650 mg Q6H PRN PO .PAIN 1-3 OR TEMP Last administered on 07/24/18 12:11; Admin Dose 650 MG; Start 07/11/18 at 05:30 Atorvastatin Calcium (Lipitor) 40 mg HS PO Last administered on 07/24/18 21:16; Admin Dose 40 MG; Start 07/11/18 at 21:00 Simethicone (Mylicon) 80 mg QID PRN GTB DISTENSION/GAS/BLOATING Last administered on 07/16/18at 17:28; Admin Dose 80 MG; Start 07/13/18 at 12:30 Guaifenesin (Mucinex) 600 mg BID PO Last administered on 07/25/18 09:22; Admin Dose 600 MG; Start 07/15/18 at 10:30 Sodium Chloride (Deep Sea) 2 spray BID PRN NASAL congestion; Start 07/15/18 at 10:30 Diagnostic Test (Pha) (Accu-Chek) 1 ea Q1H XX Last administered on 07/25/18 09:22; Admin Dose 1 EA; Start 07/20/18 at 21:00 Insulin Human Regular 100 unit/ Sodium Chloride 100 ml @ 0 mls/hr PER PROTOCOL IV Last administered on 07/24/18 10:32; Admin Dose 5 MLS/HR; Start 07/20/18 at 21:00 Miscellaneous Information (* Miscellaneous Pharmacy Order) Treatment of Hypoglycemia: 1.BG 51... Per protocol XX ; Start 07/20/18 at 21:00 Dextrose (D50w Syringe) 25 ml Q15M PRN IV .DECREASED GLUCOSE; Start 07/20/18 at 21:00 Dextrose (D50w Syringe) 50 ml Q15M PRN IV .DECREASED GLUCOSE; Start 07/20/18 at 21:00 Nicardipine HCl 200 ml @ 50 mls/hr TITRATE PRN IV ANESTHESIA; Start 07/20/18 at 21:00 Nitroglycerin/ Dextrose 250 ml @ 1.5 mls/hr TITRATE IV Last administered on 07/24/18 07:33; Admin Dose 60 MLS/HR; Start 07/20/18 at 22:30 Potassium Chloride 50 ml @ 50 mls/hr SEE DIRECTION PRN IVPB K+ LEVEL Last administered on 07/21/18at 13:44; Admin Dose 50 MLS/HR; Start 07/20/18 at 23:30 Magnesium Sulfate/ Dextrose 100 ml @ 100 mls/hr PRN PRN IVPB PENDING LAB VALUE; Start 07/20/18 at 23:30 Midazolam HCl (Versed) 2 mg Q2H PRN IV AGITATION; Start 07/21/18 at 04:30 Acetaminophen (Tylenol Supp) 650 mg Q4H PRN [place] MILD PAIN(1-3) OR TEMP>38C Last administered on 07/23/18at 17:29; Admin Dose 650 MG; Start 07/21/18 at 04:30 Albumin Human 250 ml @ 500 mls/hr PRN PRN IV CVP< 8, OR SBP<90 Last administered on 07/22/18at 21:42; Admin Dose 500 MLS/HR; Start 07/21/18 at 08:00 Acetaminophen (Tylenol Liquid) 650 mg Q6 PRN NGT MILD PAIN(1-3)OR ELEVATED TEMP Last administered on 07/23/18 06:10; Admin Dose 650 MG; Start 07/21/18 at 09:00 Pantoprazole (Protonix Iv) 40 mg DAILY@06 IV Last administered on 07/25/18 05:22; Admin Dose 40 MG; Start 07/22/18 at 06:00 Piperacillin Sod/ Tazobactam Sod 100 ml @ 200 mls/hr Q6 IVPB Last administered on 07/25/18 05:22; Admin Dose 200 MLS/HR; Start 07/21/18 at 12:00 Norepinephrine 250 ml @ 1.875 mls/ hr TITRATE IV Last administered on 07/23/18 07:05; Admin Dose 1.875 MLS/HR; Start 07/21/18 at 13:00 Morphine Sulfate (morphine) 1 mg Q4 PRN IV PAIN LEVEL 1-5 Last administered on 07/24/18 22:23; Admin Dose 1 MG; Start 07/22/18 at 11:30 Morphine Sulfate (morphine) 2 mg Q4 PRN IV PAIN LEVEL 6-10 Last administered on 07/25/18 09:23; Admin Dose 2 MG; Start 07/22/18 at 11:30 Aspirin (Aspirin) 81 mg DAILY NGT Last administered on 07/25/18 09:37; Admin Dose 81 MG; Start 07/23/18 at 09:00 Enoxaparin Sodium (Lovenox) 30 mg DAILY SC Last administered on 07/24/18 08:42; Admin Dose 30 MG; Start 07/23/18 at 09:00 Vancomycin HCl (Vanco Iv Per Pharmacy) VANCOMYCIN PER PHARMACY PER PROTOCOL XX ; Start 07/23/18 at 16:00 Vancomycin/Sodium Chloride 250 ml @ 125 mls/hr Q12H IVPB Last administered on 07/25/18 06:39; Admin Dose 125 MLS/HR; Start 07/24/18 at 06:00 Albuterol/ Ipratropium (Duoneb) 3 ml Q6H RESP THERAPY HHN Last administered on 07/25/18at 01:27; Admin Dose 3 ML; Start 07/24/18 at 02:00 Albuterol/ Ipratropium (Duoneb) 3 ml Q2H RESP THERAPY PRN HHN sob Last administered on 07/23/18at 21:00; Admin Dose 3 ML; Start 07/23/18 at 20:30 Furosemide (Lasix) 40 mg DAILY@0600 IV Last administered on 07/25/18at 05:26; Admin Dose 40 MG; Start 07/24/18 at 08:00 Lisinopril (Zestril) 5 mg BID PO Last administered on 07/25/18at 09:23; Admin Dose 5 MG; Start 07/24/18 at 14:30 Metoprolol Succinate (Toprol Xl) 25 mg DAILY PO Last administered on 07/25/18at 09:22; Admin Dose 25 MG; Start 07/25/18 at 09:00 DWAYNE LAO MD Jul 25, 2018 10:51
[2018-07-25] MEDS ORDERED: LIDOCAINE 1% (MPF) 5 ML VIAL ONE (18:21)
[2018-07-25] MEDS: ATORVASTATIN 40 MG TAB PO SCH (21:42)
[2018-07-26] VITALS (24 sets, daily range): BP systolic 102–155; BP diastolic 47–74; PULSE 61–76; RESP 17–31
[2018-07-26] MEDS: PIPER-TAZO 3.375 GM IV (PMX) 100 ML IVPB SCH ×3 (00:52→12:32)
[2018-07-26] MEDS: ACCU-CHEK XX SCH ×9 (01:10→08:00)
[2018-07-26] MEDS: ALBUTEROL/IPRATROPIUM (NEB) 3 ML AMP HHN SCH ×5 (02:00→20:19)
[2018-07-26] MEDS: VANCOMYCIN 750 MG (PMX) 250 ML IVPB SCH (05:39)
[2018-07-26] MEDS: PANTOPRAZOLE 40 MG INJ IV SCH (05:39)
[2018-07-26] MEDS: FUROSEMIDE 40 MG INJ IV SCH (05:44)
[2018-07-26] MEDS: morphine 2 MG INJ IV PRN ×2 (08:22→17:46)
[2018-07-26] MEDS: NITROGLYCERIN (SL) 0.4 MG TAB SL PRN ×3 (08:26→08:58)
[2018-07-26] MEDS ORDERED: GLUCOSE GEL 15 GRAM TUBE PO PRN ×2 (08:30)
[2018-07-26] MEDS ORDERED: DEXTROSE 50% 50 ML SYRINGE IV PRN ×2 (08:30)
[2018-07-26] MEDS ORDERED: NITROGLYCERIN 50 MG/D5W (PMX) 250 ML IV SCH (08:30)
[2018-07-26] MEDS ORDERED: GLUCOSE GEL 15 GRAM TUBE BUCCAL PRN (08:30)
[2018-07-26] MEDS ORDERED: GLUCAGON 1 MG INJ IM PRN (08:30)
--- NOTE | 2018-07-26 08:35 | PN ---
Date/Time of Note Date/Time of Note DATE: 07/26/18 TIME: 08:35 Assessment/Plan VTE Prophylaxis Risk score (from Ns)>0 risk: 9 SCD applied (from Nsg): Yes Pharmacological prophylaxis: other Lines/Catheters IV Catheter Type (from Nrsg): Cordis Urinary Cath still in place: No Assessment/Plan Hospital Course renal follow up SUBJECTIVE: s/p extubation. currently in icu Urinary output has been increasing. d/w Dr Toure OBJECTIVE: HEENT: Head is normocephalic. NECK: Supple, positive JVD. HEART: Regular rate. LUNGS: Show diminished breath sounds at the base. ABDOMEN: Soft, nontender to palpation. No rebound or guarding. EXTREMITIES: Negative for clubbing, cyanosis, no edema. DERMATOLOGIC: No rashes. MUSCULOSKELETAL: No joint effusions. NEUROLOGIC: No change in exam. ASSESSMENT AND PLAN: 1. Nonoliguric acute kidney injury with previous baseline creatinine of 0.9 mg/dL. Etiology of acute kidney injury is secondary to hemodynamics. The patient's renal function has been fluctuating but overall stable. Continue current treatment plans, supportive care, renally dose all meds. Continue diuretic therapy and acei 2. Acute heart failure. The patient is volume overloaded. Will start Lasix 40 mg IV daily, monitor I's and O's closely. 3. Anemia. Continue to monitor hemoglobin and hematocrit levels. 4. Mineral bone disorder. Continue to monitor calcium and phosphorus levels. 5. Hypernatremia, improved. Continue to monitor. 6. Coronary artery disease, status post 3-vessel CABG. Continue medical management. Follow up with CT surgery. 7. Status post cardiogenic shock. Continue diuretic therapy as stated above, the patient is currently off inotropic support. 8. Respiratory failure. The patient is status post extubation. Continue to monitor. Follow up with pulmonary. 9. Diabetes. Continue current insulin regimen. 10. Hypertension. Continue current blood pressure regimen. Continue diuretic therapy, monitor closely. 11. Systemic inflammatory response syndrome. Continue medical management. Result Diagram: 07/26/18 0410 07/26/18409 Results 24hrs Laboratory Tests Test 07/25/18 09:22 07/25/18 11:16 07/25/18 13:05 07/25/18 15:13 Bedside Glucose 108 102 118 100 Test 07/25/18 16:26 07/25/18 17:05 07/25/18 17:12 07/25/18 19:20 Prothrombin Time 15.4 H Prothrombin Time 1.2 Ratio INR 1.21 International Normalized Ratio Bedside Glucose 97 93 Body Fluid Type THORACENTESIS FL UID Body Fluid 425.0 Volume Body Fluid Color RED Body Fluid BLOODY Appearance Body Fluid WBC 785 Body Fluid RBC 761406 (Auto) Body Fluid 51.5 Polynuclear WBCs (%) Body Fluid 48.5 Mononuclear Cells % Auto Body Fluid 92 Glucose Body Fluid Total 2.9 Protein Body Fluid 897 Lactate Dehydrog enase Test 07/25/18 21:49 07/25/18 23:16 07/26/18 01:08 07/26/18 04:10 Bedside Glucose 83 94 101 White Blood 13.1 H Count Red Blood Count 3.78 L Hemoglobin 10.8 L Hematocrit 33.4 L Mean Corpuscular 88.4 Volume Mean Corpuscular 28.6 L Hemoglobin Mean Corpuscular 32.3 Hemoglobin Deja nt Red Cell 12.9 Distribution Width Platelet Count 204 Mean Platelet 10.2 Volume Immature 1.000 H Granulocytes % Neutrophils % 81.6 H Lymphocytes % 8.6 L Monocytes % 8.0 Eosinophils % 0.6 Basophils % 0.2 Nucleated Red 0.0 Blood Cells % Immature 0.130 H Granulocytes # Neutrophils # 10.7 H Lymphocytes # 1.1 Monocytes # 1.1 H Eosinophils # 0.1 Basophils # 0.0 Nucleated Red 0.0 Blood Cells # Sodium Level 139 Potassium Level 3.8 Chloride Level 105 Carbon Dioxide 20 L Level Anion Gap 14 H Blood Urea 28 H Nitrogen Creatinine 0.96 Est Glomerular > 60 Filtrat Rate mL/min Glucose Level 109 Calcium Level 8.6 Magnesium Level 2.3 Total Bilirubin 2.4 H Direct Bilirubin 0.80 H Indirect 1.6 H Bilirubin Aspartate Amino 261 H Transf (AST/SGOT ) Alanine 329 H Aminotransferase (ALT/SGPT) Alkaline 153 H Phosphatase Total Protein 6.1 Albumin 3.1 L Globulin 3.00 Albumin/Globulin 1.03 Ratio Test 07/26/18 05:00 07/26/18 05:38 07/26/18 06:59 Blood Gas Blood arterial Specimen Source Arterial Blood 07/26/2018 4:40:42 Date Drawn AM Arterial Blood 7.437 pH (Temp corrected) Arterial Blood 30.1 L pCO2 (Temp correct) Arterial Blood 63.9 L pO2 (Temp corrected) Arterial Blood 19.8 L HCO3 Arterial Blood -3.4 L Base Excess Arterial Blood 92.0 L Oxygen Saturatio n Tima Test ACCEPTAB Arterial Blood Right HEEL Gas Puncture Site Arterial 0.3 Blood Carboxyhem oglobin Arterial Blood 0.1 Methemoglobin Blood Gas A-a O2 93.0 H Differential Oxyhemoglobin 91.6 L Percent Blood Gas 37.0 Temperature Blood Gas NASAL CANNULA Modality FiO2 27.0 Blood Gas UP Notified Whom Blood Gas 07/26/2018 4:52:02 Notified Time AM Bedside Glucose 126 135 Exam/Review of Systems Exam Vitals Vital Signs Date Temp Pulse Resp B/P (MAP) Pulse Ox O2 O2 Flow FiO2 Time Delivery Rate 07/26/18 73 26 143/61 97 Nasal 3.0 06:00 (88) Cannula 07/26/18 27 04:44 07/26/18 98.5 04:00 Intake and Output 07/25/18 07/25/18 07/26/18 1515:00 23:00 07:00 IntakeIntake Total 454.73 ml 285.0 ml 428.2 ml OutputOutput Total 1070 ml 125 ml BalanceBalance -615.27 ml 160.0 ml 428.2 ml Results Results 24hrs Laboratory Tests Test 07/25/18 09:22 07/25/18 11:16 07/25/18 13:05 07/25/18 15:13 Bedside Glucose 108 102 118 100 Test 07/25/18 16:26 07/25/18 17:05 07/25/18 17:12 07/25/18 19:20 Prothrombin Time 15.4 H Prothrombin Time 1.2 Ratio INR 1.21 International Normalized Ratio Bedside Glucose 97 93 Body Fluid Type THORACENTESIS FL UID Body Fluid 425.0 Volume Body Fluid Color RED Body Fluid BLOODY Appearance Body Fluid WBC 785 Body Fluid RBC 546039 (Auto) Body Fluid 51.5 Polynuclear WBCs (%) Body Fluid 48.5 Mononuclear Cells % Auto Body Fluid 92 Glucose Body Fluid Total 2.9 Protein Body Fluid 897 Lactate Dehydrog enase Test 07/25/18 21:49 07/25/18 23:16 07/26/18 01:08 07/26/18 04:10 Bedside Glucose 83 94 101 White Blood 13.1 H Count Red Blood Count 3.78 L Hemoglobin 10.8 L Hematocrit 33.4 L Mean Corpuscular 88.4 Volume Mean Corpuscular 28.6 L Hemoglobin Mean Corpuscular 32.3 Hemoglobin Deja nt Red Cell 12.9 Distribution Width Platelet Count 204 Mean Platelet 10.2 Volume Immature 1.000 H Granulocytes % Neutrophils % 81.6 H Lymphocytes % 8.6 L Monocytes % 8.0 Eosinophils % 0.6 Basophils % 0.2 Nucleated Red 0.0 Blood Cells % Immature 0.130 H Granulocytes # Neutrophils # 10.7 H Lymphocytes # 1.1 Monocytes # 1.1 H Eosinophils # 0.1 Basophils # 0.0 Nucleated Red 0.0 Blood Cells # Sodium Level 139 Potassium Level 3.8 Chloride Level 105 Carbon Dioxide 20 L Level Anion Gap 14 H Blood Urea 28 H Nitrogen Creatinine 0.96 Est Glomerular > 60 Filtrat Rate mL/min Glucose Level 109 Calcium Level 8.6 Magnesium Level 2.3 Total Bilirubin 2.4 H Direct Bilirubin 0.80 H Indirect 1.6 H Bilirubin Aspartate Amino 261 H Transf (AST/SGOT ) Alanine 329 H Aminotransferase (ALT/SGPT) Alkaline 153 H Phosphatase Total Protein 6.1 Albumin 3.1 L Globulin 3.00 Albumin/Globulin 1.03 Ratio Test 07/26/18 05:00 07/26/18 05:38 07/26/18 06:59 Blood Gas Blood arterial Specimen Source Arterial Blood 07/26/2018 4:40:42 Date Drawn AM Arterial Blood 7.437 pH (Temp corrected) Arterial Blood 30.1 L pCO2 (Temp correct) Arterial Blood 63.9 L pO2 (Temp corrected) Arterial Blood 19.8 L HCO3 Arterial Blood -3.4 L Base Excess Arterial Blood 92.0 L Oxygen Saturatio n Tima Test ACCEPTAB Arterial Blood Right HEEL Gas Puncture Site Arterial 0.3 Blood Carboxyhem oglobin Arterial Blood 0.1 Methemoglobin Blood Gas A-a O2 93.0 H Differential Oxyhemoglobin 91.6 L Percent Blood Gas 37.0 Temperature Blood Gas NASAL CANNULA Modality FiO2 27.0 Blood Gas UP Notified Whom Blood Gas 07/26/2018 4:52:02 Notified Time AM Bedside Glucose 126 135 Medications Medication Current Medications IV Flush (NS 3 ml) 3 ml PER PROTOCOL IV ; Start 07/11/18 at 05:30 Ondansetron HCl (Zofran Inj) 4 mg Q6H PRN IV NAUSEA/VOMITING Last administered on 07/24/18 21:16; Admin Dose 4 MG; Start 07/11/18 at 05:30 Nitroglycerin (Nitroglycerin (Sl Tab) 0.4 Mg) 1 tab Q5M PRN SL .CHEST PAIN Last administered on 07/26/18 08:26; Admin Dose 1 TAB; Start 07/11/18 at 05:30 Acetaminophen (Tylenol Tab) 650 mg Q6H PRN PO .PAIN 1-3 OR TEMP Last admin istered on 07/24/18 12:11; Admin Dose 650 MG; Start 07/11/18 at 05:30 Atorvastatin Calcium (Lipitor) 40 mg HS PO Last administered on 07/25/18 21:42; Admin Dose 40 MG; Start 07/11/18 at 21:00 Simethicone (Mylicon) 80 mg QID PRN GTB DISTENSION/GAS/BLOATING Last administered on 07/16/18 17:28; Admin Dose 80 MG; Start 07/13/18 at 12:30 Guaifenesin (Mucinex) 600 mg BID PO Last administered on 07/25/18 21:42; Admin Dose 600 MG; Start 07/15/18 at 10:30 Sodium Chloride (Deep Sea) 2 spray BID PRN NASAL congestion; Start 07/15/18 at 10:30 Diagnostic Test (Pha) (Accu-Chek) 1 ea Q1H XX Last administered on 07/26/18 07:00; Admin Dose 1 EA; Start 07/20/18 at 21:00 Miscellaneous Information (* Miscellaneous Pharmacy Order) Treatment of Hypoglycemia: 1.BG 51... Per protocol XX ; Start 07/20/18 at 21:00 Potassium Chloride 50 ml @ 50 mls/hr SEE DIRECTION PRN IVPB K+ LEVEL Last administered on 07/21/18 13:44; Admin Dose 50 MLS/HR; Start 07/20/18 at 23:30 Magnesium Sulfate/ Dextrose 100 ml @ 100 mls/hr PRN PRN IVPB PENDING LAB VALUE; Start 07/20/18 at 23:30 Midazolam HCl (Versed) 2 mg Q2H PRN IV AGITATION; Start 07/21/18 at 04:30 Acetaminophen (Tylenol Supp) 650 mg Q4H PRN [place] MILD PAIN(1-3) OR TEMP>38C Last administered on 07/23/18 17:29; Admin Dose 650 MG; Start 07/21/18 at 04:30 Albumin Human 250 ml @ 500 mls/hr PRN PRN IV CVP< 8, OR SBP<90 Last administered on 07/22/18 21:42; Admin Dose 500 MLS/HR; Start 07/21/18 at 08:00 Acetaminophen (Tylenol Liquid) 650 mg Q6 PRN NGT MILD PAIN(1-3)OR ELEVATED TEMP Last administered on 07/23/18 06:10; Admin Dose 650 MG; Start 07/21/18 at 09:00 Pantoprazole (Protonix Iv) 40 mg DAILY@06 IV Last administered on 07/26/18 05:39; Admin Dose 40 MG; Start 07/22/18 at 06:00 Piperacillin Sod/ Tazobactam Sod 100 ml @ 200 mls/hr Q6 IVPB Last administered on 07/26/18 05:40; Admin Dose 200 MLS/HR; Start 07/21/18 at 12:00 Morphine Sulfate (morphine) 1 mg Q4 PRN IV PAIN LEVEL 1-5 Last administered on 07/24/18 22:23; Admin Dose 1 MG; Start 07/22/18 at 11:30 Morphine Sulfate (morphine) 2 mg Q4 PRN IV PAIN LEVEL 6-10 Last administered on 07/26/18 08:22; Admin Dose 2 MG; Start 07/22/18 at 11:30 Aspirin (Aspirin) 81 mg DAILY NGT Last administered on 07/25/18 09:37; Admin Dose 81 MG; Start 07/23/18 at 09:00 Enoxaparin Sodium (Lovenox) 30 mg DAILY SC Last administered on 07/24/18 08:42; Admin Dose 30 MG; Start 07/23/18 at 09:00 Vancomycin HCl (Vanco Iv Per Pharmacy) VANCOMYCIN PER PHARMACY PER PROTOCOL XX ; Start 07/23/18 at 16:00 Vancomycin/Sodium Chloride 250 ml @ 125 mls/hr Q12H IVPB Last administered on 07/26/18 05:39; Admin Dose 125 MLS/HR; Start 07/24/18 at 06:00 Albuterol/ Ipratropium (Duoneb) 3 ml Q6H RESP THERAPY N Last administered on 07/26/18at 02:20; Admin Dose 3 ML; Start 07/24/18 at 02:00 Albuterol/ Ipratropium (Duoneb) 3 ml Q2H RESP THERAPY PRN HHN sob Last administered on 07/23/18at 21:00; Admin Dose 3 ML; Start 07/23/18 at 20:30 Furosemide (Lasix) 40 mg DAILY@0600 IV Last administered on 07/26/18at 05:44; Ad min Dose 40 MG; Start 07/24/18 at 08:00 Lisinopril (Zestril) 5 mg BID PO Last administered on 07/25/18at 21:42; Admin Dose 5 MG; Start 07/24/18 at 14:30 Metoprolol Succinate (Toprol Xl) 25 mg DAILY PO Last administered on 07/25/18at 09:22; Admin Dose 25 MG; Start 07/25/18 at 09:00 Diagnostic Test (Pha) (Accu-Chek) 1 ea 02 XX ; Start 07/27/18 at 02:00 Insulin Glargine (Lantus) 25 units DAILY@0800 SC ; Start 07/27/18 at 08:00 Insulin Aspart (Novolog Insulin Pen) 12 unit WITH MEALS SC ; Start 07/26/18 at 11:30 Insulin Aspart (Novolog Insulin Pen) NOVOLOG *MODERATE* ALGORITHM WITH MEALS BEDTIME SC ; Start 07/26/18 at 11:30 Nitroglycerin/ Dextrose 250 ml @ 1.5 mls/hr TITRATE IV ; Start 07/26/18 at 08:30 Miscellaneous Information 1 ea NOTE XX ; Start 07/26/18 at 08:30 Glucose (Glutose) 15 gm Q15M PRN PO DECREASED GLUCOSE; Start 07/26/18 at 08:30 Glucose (Glutose) 22.5 gm Q15M PRN PO DECREASED GLUCOSE; Start 07/26/18 at 08:30 Dextrose (D50w Syringe) 25 ml Q15M PRN IV DECREASED GLUCOSE; Start 07/26/18 at 08:30 Dextrose (D50w Syringe) 50 ml Q15M PRN IV DECREASED GLUCOSE; Start 07/26/18 at 08:30 Glucagon (Glucagen) 1 mg Q15M PRN IM DECREASED GLUCOSE; Start 07/26/18 at 08:30 Glucose (Glutose) 15 gm Q15M PRN BUCCAL DECREASED GLUCOSE; Start 07/26/18 at 08:30 LUIS MCCAIN DO Jul 26, 2018 08:35
[2018-07-26] MEDS: GUAIFENESIN LA 600 MG TABSR PO SCH ×2 (08:56→21:40)
[2018-07-26] MEDS: METOPROLOL (XL) 25 MG TAB PO SCH (08:57)
[2018-07-26] MEDS: ASPIRIN 81 MG TAB NGT SCH (08:57)
[2018-07-26] MEDS: LISINOPRIL 5 MG TAB PO SCH ×2 (08:57→21:41)
[2018-07-26] MEDS: ENOXAPARIN 30 MG/0.3 ML SYG SC SCH ×2 (09:00→12:33)
--- NOTE | 2018-07-26 10:37 | CONS ---
Consult Date/Type/Reason Admit Date/Time Jul 11, 2018 at 04:15 Initial Consult Date 07/17/18 Type of Consultation: Pulm/CCM Requesting Provider: VANIA LAMB MD Date/Time of Note DATE: 07/26/18 TIME: 10:34 Subjective s/p left thoracentesis x 400 ml. No events otherwise. Objective Vitals Vital Signs Date Temp Pulse Resp B/P (MAP) Pulse Ox O2 O2 Flow FiO2 Time Delivery Rate 07/26/18 73 26 143/61 97 Nasal 3.0 06:00 (88) Cannula 07/26/18 27 04:44 07/26/18 98.5 04:00 Intake and Output 07/25/18 07/25/18 07/26/18 1515:00 23:00 07:00 IntakeIntake Total 454.73 ml 285.0 ml 428.2 ml OutputOutput Total 1070 ml 125 ml BalanceBalance -615.27 ml 160.0 ml 428.2 ml Exam HEENT: Neck supple; no JVD; no LAD CVS: RRR, S1 and S2 CHEST: Diminished BS at bases ABD: Soft, NT, + BS EXT: No c/c/e Results/Medications Result Diagram: 07/26/18 0410 07/26/18 0410 Results 24 hrs Laboratory Tests Test 07/25/18 11:16 07/25/18 13:05 07/25/18 15:13 07/25/18 16:26 Bedside Glucose 102 118 100 Prothrombin Time 15.4 H Prothrombin Time 1.2 Ratio INR 1.21 International Normalized Ratio Test 07/25/18 17:05 07/25/18 17:12 07/25/18 19:20 07/25/18 21:49 Bedside Glucose 97 93 83 Body Fluid Type THORACENTESIS FL UID Body Fluid 425.0 Volume Body Fluid Color RED Body Fluid BLOODY Appearance Body Fluid WBC 785 Body Fluid RBC 275651 (Auto) Body Fluid 51.5 Polynuclear WBCs (%) Body Fluid 48.5 Mononuclear Cells % Auto Body Fluid 92 Glucose Body Fluid Total 2.9 Protein Body Fluid 897 Lactate Dehydrog enase Test 07/25/18 23:16 07/26/18 01:08 07/26/18 04:10 07/26/18 05:00 Bedside Glucose 94 101 White Blood 13.1 H Count Red Blood Count 3.78 L Hemoglobin 10.8 L Hematocrit 33.4 L Mean Corpuscular 88.4 Volume Mean Corpuscular 28.6 L Hemoglobin Mean Corpuscular 32.3 Hemoglobin Deja nt Red Cell 12.9 Distribution Width Platelet Count 204 Mean Platelet 10.2 Volume Immature 1.000 H Granulocytes % Neutrophils % 81.6 H Lymphocytes % 8.6 L Monocytes % 8.0 Eosinophils % 0.6 Basophils % 0.2 Nucleated Red 0.0 Blood Cells % Immature 0.130 H Granulocytes # Neutrophils # 10.7 H Lymphocytes # 1.1 Monocytes # 1.1 H Eosinophils # 0.1 Basophils # 0.0 Nucleated Red 0.0 Blood Cells # Sodium Level 139 Potassium Level 3.8 Chloride Level 105 Carbon Dioxide 20 L Level Anion Gap 14 H Blood Urea 28 H Nitrogen Creatinine 0.96 Est Glomerular > 60 Filtrat Rate mL/min Glucose Level 109 Calcium Level 8.6 Magnesium Level 2.3 Total Bilirubin 2.4 H Direct Bilirubin 0.80 H Indirect 1.6 H Bilirubin Aspartate Amino 261 H Transf (AST/SGOT ) Alanine 329 H Aminotransferase (ALT/SGPT) Alkaline 153 H Phosphatase Total Protein 6.1 Albumin 3.1 L Globulin 3.00 Albumin/Globulin 1.03 Ratio Blood Gas Blood arterial Specimen Source Arterial Blood 07/26/2018 4:40:42 Date Drawn AM Arterial Blood 7.437 pH (Temp corrected) Arterial Blood 30.1 L pCO2 (Temp correct) Arterial Blood 63.9 L pO2 (Temp corrected) Arterial Blood 19.8 L HCO3 Arterial Blood -3.4 L Base Excess Arterial Blood 92.0 L Oxygen Saturatio n Tima Test ACCEPTAB Arterial Blood Right HEEL Gas Puncture Site Arterial 0.3 Blood Carboxyhem oglobin Arterial Blood 0.1 Methemoglobin Blood Gas A-a O2 93.0 H Differential Oxyhemoglobin 91.6 L Percent Blood Gas 37.0 Temperature Blood Gas NASAL CANNULA Modality FiO2 27.0 Blood Gas UP Notified Whom Blood Gas 07/26/2018 4:52:02 Notified Time AM Test 07/26/18 05:38 07/26/18 06:59 07/26/18 08:47 Bedside Glucose 126 135 Creatinine 0.86 Kinase MB (Mass) Troponin I 1.780 *H Medications Current Medications IV Flush (NS 3 ml) 3 ml PER PROTOCOL IV ; Start 07/11/18 at 05:30 Ondansetron HCl (Zofran Inj) 4 mg Q6H PRN IV NAUSEA/VOMITING Last administered on 07/24/18 21:16; Admin Dose 4 MG; Start 07/11/18 at 05:30 Nitroglycerin (Nitroglycerin (Sl Tab) 0.4 Mg) 1 tab Q5M PRN SL .CHEST PAIN Last administered on 07/26/18 08:58; Admin Dose 1 TAB; Start 07/11/18 at 05:30 Acetaminophen (Tylenol Tab) 650 mg Q6H PRN PO .PAIN 1-3 OR TEMP Last administered on 07/24/18 12:11; Admin Dose 650 MG; Start 07/11/18 at 05:30 Atorvastatin Calcium (Lipitor) 40 mg HS PO Last administered on 07/25/18 21:42; Admin Dose 40 MG; Start 07/11/18 at 21:00 Simethicone (Mylicon) 80 mg QID PRN GTB DISTENSION/GAS/BLOATING Last administered on 07/16/18 17:28; Admin Dose 80 MG; Start 07/13/18 at 12:30 Guaifenesin (Mucinex) 600 mg BID PO Last administered on 07/26/18 08:56; Admin Dose 600 MG; Start 07/15/18 at 10:30 Sodium Chloride (Deep Sea) 2 spray BID PRN NASAL congestion; Start 07/15/18 at 10:30 Diagnostic Test (Pha) (Accu-Chek) 1 ea Q1H XX Last administered on 07/26/18 07:00; Admin Dose 1 EA; Start 07/20/18 at 21:00 Miscellaneous Information (* Miscellaneous Pharmacy Order) Treatment of Hypogl ycemia: 1.BG 51... Per protocol XX ; Start 07/20/18 at 21:00 Potassium Chloride 50 ml @ 50 mls/hr SEE DIRECTION PRN IVPB K+ LEVEL Last administered on 07/21/18 13:44; Admin Dose 50 MLS/HR; Start 07/20/18 at 23:30 Magnesium Sulfate/ Dextrose 100 ml @ 100 mls/hr PRN PRN IVPB PENDING LAB VALUE; Start 07/20/18 at 23:30 Midazolam HCl (Versed) 2 mg Q2H PRN IV AGITATION; Start 07/21/18 at 04:30 Acetaminophen (Tylenol Supp) 650 mg Q4H PRN [place] MILD PAIN(1-3) OR TEMP>38C Last administered on 07/23/18 17:29; Admin Dose 650 MG; Start 07/21/18 at 04:30 Albumin Human 250 ml @ 500 mls/hr PRN PRN IV CVP< 8, OR SBP<90 Last administered on 07/22/18 21:42; Admin Dose 500 MLS/HR; Start 07/21/18 at 08:00 Acetaminophen (Tylenol Liquid) 650 mg Q6 PRN NGT MILD PAIN(1-3)OR ELEVATED TEMP Last administered on 07/23/18 06:10; Admin Dose 650 MG; Start 07/21/18 at 09:00 Pantoprazole (Protonix Iv) 40 mg DAILY@06 IV Last administered on 07/26/18 05:39; Admin Dose 40 MG; Start 07/22/18 at 06:00 Piperacillin Sod/ Tazobactam Sod 100 ml @ 200 mls/hr Q6 IVPB Last administered on 07/26/18 05:40; Admin Dose 200 MLS/HR; Start 07/21/18 at 12:00 Morphine Sulfate (morphine) 1 mg Q4 PRN IV PAIN LEVEL 1-5 Last administered on 07/24/18 22:23; Admin Dose 1 MG; Start 07/22/18 at 11:30 Morphine Sulfate (morphine) 2 mg Q4 PRN IV PAIN LEVEL 6-10 Last administered on 07/26/18 08:22; Admin Dose 2 MG; Start 07/22/18 at 11:30 Aspirin (Aspirin) 81 mg DAILY NGT Last administered on 07/26/18 08:57; Admin Dose 81 MG; Start 07/23/18 at 09:00 Enoxaparin Sodium (Lovenox) 30 mg DAILY SC Last administered on 07/24/18 08:42; Admin Dose 30 MG; Start 07/23/18 at 09:00 Vancomycin HCl (Vanco Iv Per Pharmacy) VANCOMYCIN PER PHARMACY PER PROTOCOL XX ; Start 07/23/18 at 16:00 Vancomycin/Sodium Chloride 250 ml @ 125 mls/hr Q12H IVPB Last administered on 07/26/18 05:39; Admin Dose 125 MLS/HR; Start 07/24/18 at 06:00 Albuterol/ Ipratropium (Duoneb) 3 ml Q6H RESP THERAPY HHN Last administered on 07/26/18at 02:20; Admin Dose 3 ML; Start 07/24/18 at 02:00 Albuterol/ Ipratropium (Duoneb) 3 ml Q2H RESP THERAPY PRN HHN sob Last administered on 07/23/18at 21:00; Admin Dose 3 ML; Start 07/23/18 at 20:30 Furosemide (Lasix) 40 mg DAILY@0600 IV Last administered on 07/26/18at 05:44; Admin Dose 40 MG; Start 07/24/18 at 08:00 Lisinopril (Zestril) 5 mg BID PO Last administered on 07/26/18at 08:57; Admin Dose 5 MG; Start 07/24/18 at 14:30 Metoprolol Succinate (Toprol Xl) 25 mg DAILY PO Last administered on 07/26/18at 08:57; Admin Dose 25 MG; Start 07/25/18 at 09:00 Diagnostic Test (Pha) (Accu-Chek) 1 ea 02 XX ; Start 07/27/18 at 02:00 Insulin Glargine (Lantus) 25 units DAILY@0800 SC ; Start 07/27/18 at 08:00 Insulin Aspart (Novolog Insulin Pen) 12 unit WITH MEALS SC ; Start 07/26/18 at 11:30 Insulin Aspart (Novolog Insulin Pen) NOVOLOG *MODERATE* ALGORITHM WITH MEALS BEDTIME SC ; Start 07/26/18 at 11:30 Nitroglycerin/ Dextrose 250 ml @ 1.5 mls/hr TITRATE IV ; Start 07/26/18 at 08:30 Miscellaneous Information 1 ea NOTE XX ; Start 07/26/18 at 08:30 Glucose (Glutose) 15 gm Q15M PRN PO DECREASED GLUCOSE; Start 07/26/18 at 08:30 Glucose (Glutose) 22.5 gm Q15M PRN PO DECREASED GLUCOSE; Start 07/26/18 at 08:30 Dextrose (D50w Syringe) 25 ml Q15M PRN IV DECREASED GLUCOSE; Start 07/26/18 at 08:30 Dextrose (D50w Syringe) 50 ml Q15M PRN IV DECREASED GLUCOSE; Start 07/26/18 at 08:30 Glucagon (Glucagen) 1 mg Q15M PRN IM DECREASED GLUCOSE; Start 07/26/18 at 08:30 Glucose (Glutose) 15 gm Q15M PRN BUCCAL DECREASED GLUCOSE; Start 07/26/18 at 08:30 Assessment/Plan Assessment/Plan (Daily) IMP: 1. Multivessel coronary artery disease, status post coronary artery bypass graft, postoperative day 5. 2. Prior significant tobacco history, likely underlying chronic obstructive pulmonary disease (COPD). Postop left effusion versus infiltrate. 3. Diabetes mellitus, poorly controlled, glycemic management prior to surgery. 4. Status post thymectomy. 5. Status post cardiogenic shock 6. Left-sided post-CABG pleural effusion RECS: 1. Incentive spirometry and aspiration precautions 2. Pleural fluid findings c/w post-CABG effusion 3. PT/OT 4. De-escalate abx 5. Deep venous thrombosis (DVT) and gastrointestinal (GI) prophylaxis. Critical care time 40 minutes. CHINEDU PINZON MD Jul 26, 2018 10:36
--- NOTE | 2018-07-26 11:11 | CONS ---
Consultation Date/Type/Reason Admit Date/Time Jul 11, 2018 at 04:15 Initial Consult Date 07/17/18 Type of Consult Cardiology Requesting Provider: VANIA LAMB MD Date/Time of Note DATE: 07/26/18 TIME: 11:08 24 HR Interval Summary Free Text/Dictation 1. Unstable angina 2. Multivessel coronary artery disease 3. 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 Diabetes 5. History of hypertension 6. Anemia 7. Postop respiratory failure currently intubated Developed ST elevation in V1 and V2 with chest discomfort relieved after ntg x 3 with some improvement in ST elevationnow pain free discussed with Dr. Irving anatomy not amenable to PCI will transfuse with PRBC follow cardiac enzymes continue monitoring in ICU Constitutional: no complaints (no chest pain at this time) Exam/Review of Systems Vital Signs Vitals Vital Signs Date Temp Pulse Resp B/P (MAP) Pulse Ox O2 O2 Flow FiO2 Time Delivery Rate 07/26/18 74 08:00 07/26/18 26 143/61 97 Nasal 3.0 06:00 (88) Cannula 07/26/18 27 04:44 07/26/18 98.5 04:00 Intake and Output 07/25/18 07/25/18 07/26/18 1515:00 23:00 07:00 IntakeIntake Total 454.73 ml 285.0 ml 428.2 ml OutputOutput Total 1070 ml 125 ml BalanceBalance -615.27 ml 160.0 ml 428.2 ml Exam Constitutional: alert, oriented Cardiovascular: regular rate and rhythm (Sterniotimy intact) Gastrointestinal: soft Labs Result Diagram: 07/26/18 0410 07/26/18 0410 Results 24hrs Laboratory Tests Test 07/25/18 11:16 07/25/18 13:05 07/25/18 15:13 07/25/18 16:26 Bedside Glucose 102 118 100 Prothrombin Time 15.4 H Prothrombin Time 1.2 Ratio INR 1.21 International Normalized Ratio Test 07/25/18 17:05 07/25/18 17:12 07/25/18 19:20 07/25/18 21:49 Bedside Glucose 97 93 83 Body Fluid Type THORACENTESIS FL UID Body Fluid 425.0 Volume Body Fluid Color RED Body Fluid BLOODY Appearance Body Fluid WBC 785 Body Fluid RBC 274019 (Auto) Body Fluid 51.5 Polynuclear WBCs (%) Body Fluid 48.5 Mononuclear Cells % Auto Body Fluid 92 Glucose Body Fluid Total 2.9 Protein Body Fluid 897 Lactate Dehydrog enase Test 07/25/18 23:16 07/26/18 01:08 07/26/18 04:10 07/26/18 05:00 Bedside Glucose 94 101 White Blood 13.1 H Count Red Blood Count 3.78 L Hemoglobin 10.8 L Hematocrit 33.4 L Mean Corpuscular 88.4 Volume Mean Corpuscular 28.6 L Hemoglobin Mean Corpuscular 32.3 Hemoglobin Deja nt Red Cell 12.9 Distribution Width Platelet Count 204 Mean Platelet 10.2 Volume Immature 1.000 H Granulocytes % Neutrophils % 81.6 H Lymphocytes % 8.6 L Monocytes % 8.0 Eosinophils % 0.6 Basophils % 0.2 Nucleated Red 0.0 Blood Cells % Immature 0.130 H Granulocytes # Neutrophils # 10.7 H Lymphocytes # 1.1 Monocytes # 1.1 H Eosinophils # 0.1 Basophils # 0.0 Nucleated Red 0.0 Blood Cells # Sodium Level 139 Potassium Level 3.8 Chloride Level 105 Carbon Dioxide 20 L Level Anion Gap 14 H Blood Urea 28 H Nitrogen Creatinine 0.96 Est Glomerular > 60 Filtrat Rate mL/min Glucose Level 109 Calcium Level 8.6 Magnesium Level 2.3 Total Bilirubin 2.4 H Direct Bilirubin 0.80 H Indirect 1.6 H Bilirubin Aspartate Amino 261 H Transf (AST/SGOT ) Alanine 329 H Aminotransferase (ALT/SGPT) Alkaline 153 H Phosphatase Total Protein 6.1 Albumin 3.1 L Globulin 3.00 Albumin/Globulin 1.03 Ratio Blood Gas Blood arterial Specimen Source Arterial Blood 07/26/2018 4:40:42 Date Drawn AM Arterial Blood 7.437 pH (Temp corrected) Arterial Blood 30.1 L pCO2 (Temp correct) Arterial Blood 63.9 L pO2 (Temp corrected) Arterial Blood 19.8 L HCO3 Arterial Blood -3.4 L Base Excess Arterial Blood 92.0 L Oxygen Saturatio n Tima Test ACCEPTAB Arterial Blood Right HEEL Gas Puncture Site Arterial 0.3 Blood Carboxyhem oglobin Arterial Blood 0.1 Methemoglobin Blood Gas A-a O2 93.0 H Differential Oxyhemoglobin 91.6 L Percent Blood Gas 37.0 Temperature Blood Gas NASAL CANNULA Modality FiO2 27.0 Blood Gas UP Notified Whom Blood Gas 07/26/2018 4:52:02 Notified Time AM Test 07/26/18 05:38 07/26/18 06:59 07/26/18 08:47 Bedside Glucose 126 135 Creatinine 0.86 Kinase MB (Mass) Troponin I 1.780 *H Medications Medications Current Medications IV Flush (NS 3 ml) 3 ml PER PROTOCOL IV ; Start 07/11/18 at 05:30 Ondansetron HCl (Zofran Inj) 4 mg Q6H PRN IV NAUSEA/VOMITING Last administered on 07/24/18 21:16; Admin Dose 4 MG; Start 07/11/18 at 05:30 Nitroglycerin (Nitroglycerin (Sl Tab) 0.4 Mg) 1 tab Q5M PRN SL .CHEST PAIN Last administered on 07/26/18 08:58; Admin Dose 1 TAB; Start 07/11/18 at 05:30 Acetaminophen (Tylenol Tab) 650 mg Q6H PRN PO .PAIN 1-3 OR TEMP Last administered on 07/24/18 12:11; Admin Dose 650 MG; Start 07/11/18 at 05:30 Atorvastatin Calcium (Lipitor) 40 mg HS PO Last administered on 07/25/18 21:42; Admin Dose 40 MG; Start 07/11/18 at 21:00 Simethicone (Mylicon) 80 mg QID PRN GTB DISTENSION/GAS/BLOATING Last admi nistered on 07/16/18 17:28; Admin Dose 80 MG; Start 07/13/18 at 12:30 Guaifenesin (Mucinex) 600 mg BID PO Last administered on 07/26/18 08:56; Admin Dose 600 MG; Start 07/15/18 at 10:30 Sodium Chloride (Deep Sea) 2 spray BID PRN NASAL congestion; Start 07/15/18 at 10:30 Miscellaneous Information (* Miscellaneous Pharmacy Order) Treatment of Hypoglycemia: 1.BG 51... Per protocol XX ; Start 07/20/18 at 21:00 Potassium Chloride 50 ml @ 50 mls/hr SEE DIRECTION PRN IVPB K+ LEVEL Last administered on 07/21/18 13:44; Admin Dose 50 MLS/HR; Start 07/20/18 at 23:30 Magnesium Sulfate/ Dextrose 100 ml @ 100 mls/hr PRN PRN IVPB PENDING LAB VALUE; Start 07/20/18 at 23:30 Midazolam HCl (Versed) 2 mg Q2H PRN IV AGITATION; Start 07/21/18 at 04:30 Acetaminophen (Tylenol Supp) 650 mg Q4H PRN [place] MILD PAIN(1-3) OR TEMP>38C Last administered on 07/23/18 17:29; Admin Dose 650 MG; Start 07/21/18 at 04:30 Albumin Human 250 ml @ 500 mls/hr PRN PRN IV CVP< 8, OR SBP<90 Last administered on 07/22/18 21:42; Admin Dose 500 MLS/HR; Start 07/21/18 at 08:00 Acetaminophen (Tylenol Liquid) 650 mg Q6 PRN NGT MILD PAIN(1-3)OR ELEVATED TEMP Last administered on 07/23/18 06:10; Admin Dose 650 MG; Start 07/21/18 at 09:00 Pantoprazole (Protonix Iv) 40 mg DAILY@06 IV Last administered on 07/26/18 05:39; Admin Dose 40 MG; Start 07/22/18 at 06:00 Piperacillin Sod/ Tazobactam Sod 100 ml @ 200 mls/hr Q6 IVPB Last administered on 07/26/18 05:40; Admin Dose 200 MLS/HR; Start 07/21/18 at 12:00 Morphine Sulfate (morphine) 1 mg Q4 PRN IV PAIN LEVEL 1-5 Last administered on 07/24/18 22:23; Admin Dose 1 MG; Start 07/22/18 at 11:30 Morphine Sulfate (morphine) 2 mg Q4 PRN IV PAIN LEVEL 6-10 Last administered on 07/26/18 08:22; Admin Dose 2 MG; Start 07/22/18 at 11:30 Aspirin (Aspirin) 81 mg DAILY NGT Last administered on 07/26/18 08:57; Admin Dose 81 MG; Start 07/23/18 at 09:00 Enoxaparin Sodium (Lovenox) 30 mg DAILY SC Last administered on 07/24/18 08:42; Admin Dose 30 MG; Start 07/23/18 at 09:00 Vancomycin HCl (Vanco Iv Per Pharmacy) VANCOMYCIN PER PHARMACY PER PROTOCOL XX ; Start 07/23/18 at 16:00 Vancomycin/Sodium Chloride 250 ml @ 125 mls/hr Q12H IVPB Last administered on 07/26/18at 05:39; Admin Dose 125 MLS/HR; Start 07/24/18 at 06:00 Albuterol/ Ipratropium (Duoneb) 3 ml Q6H RESP THERAPY HHN Last administered on 07/26/18at 02:20; Admin Dose 3 ML; Start 07/24/18 at 02:00 Albuterol/ Ipratropium (Duoneb) 3 ml Q2H RESP THERAPY PRN HHN sob Last administered on 07/23/18at 21:00; Admin Dose 3 ML; Start 07/23/18 at 20:30 Furosemide (Lasix) 40 mg DAILY@0600 IV Last administered on 07/26/18at 05:44; Admin Dose 40 MG; Start 07/24/18 at 08:00 Lisinopril (Zestril) 5 mg BID PO Last administered on 07/26/18at 08:57; Admin Dose 5 MG; Start 07/24/18 at 14:30 Metoprolol Succinate (Toprol Xl) 25 mg DAILY PO Last administered on 07/26/18at 08:57; Admin Dose 25 MG; Start 07/25/18 at 09:00 Diagnostic Test (Pha) (Accu-Chek) 1 ea 02 XX ; Start 07/27/18 at 02:00 Insulin Glargine (Lantus) 25 units DAILY@0800 SC ; Start 07/27/18 at 08:00 Insulin Aspart (Novolog Insulin Pen) 12 unit WITH MEALS SC ; Start 07/26/18 at 11:30 Insulin Aspart (Novolog Insulin Pen) NOVOLOG *MODERATE* ALGORITHM WITH MEALS BEDTIME SC ; Start 07/26/18 at 11:30 Nitroglycerin/ Dextrose 250 ml @ 1.5 mls/hr TITRATE IV ; Start 07/26/18 at 08:30 Miscellaneous Information 1 ea NOTE XX ; Start 07/26/18 at 08:30 Glucose (Glutose) 15 gm Q15M PRN PO DECREASED GLUCOSE; Start 07/26/18 at 08:30 Glucose (Glutose) 22.5 gm Q15M PRN PO DECREASED GLUCOSE; Start 07/26/18 at 08:30 Dextrose (D50w Syringe) 25 ml Q15M PRN IV DECREASED GLUCOSE; Start 07/26/18 at 08:30 Dextrose (D50w Syringe) 50 ml Q15M PRN IV DECREASED GLUCOSE; Start 07/26/18 at 08:30 Glucagon (Glucagen) 1 mg Q15M PRN IM DECREASED GLUCOSE; Start 07/26/18 at 08:30 Glucose (Glutose) 15 gm Q15M PRN BUCCAL DECREASED GLUCOSE; Start 07/26/18 at 08:30 CHRISTIANE DOMINGUEZ MD Jul 26, 2018 11:11
[2018-07-26] MEDS: INSULIN ASPART [NOVOLOG] 3 ML PEN SC SCH ×5 (12:34→21:00)
--- NOTE | 2018-07-26 12:41 | PN ---
Date/Time of Note Date/Time of Note DATE: 07/26/18 TIME: 12:39 Objective Vitals Vital Signs Date Temp Pulse Resp B/P (MAP) Pulse Ox O2 O2 Flow FiO2 Time Delivery Rate 07/26/18 65 12:00 07/26/18 23 131/63 99 Nasal 5.0 11:00 (85) Cannula 07/26/18 98.4 08:00 07/26/18 27 04:44 Intake and Output 07/25/18 07/25/18 07/26/18 1515:00 23:00 07:00 IntakeIntake Total 454.73 ml 285.0 ml 428.2 ml OutputOutput Total 1070 ml 125 ml 0 ml BalanceBalance -615.27 ml 160.0 ml 428.2 ml Results Result Diagram: 07/26/18 0410 07/26/18 0410 Medications Medications Current Medications IV Flush (NS 3 ml) 3 ml PER PROTOCOL IV ; Start 07/11/18 at 05:30 Ondansetron HCl (Zofran Inj) 4 mg Q6H PRN IV NAUSEA/VOMITING Last administered on 07/24/18 21:16; Admin Dose 4 MG; Start 07/11/18 at 05:30 Nitroglycerin (Nitroglycerin (Sl Tab) 0.4 Mg) 1 tab Q5M PRN SL .CHEST PAIN Last administered on 07/26/18 08:58; Admin Dose 1 TAB; Start 07/11/18 at 05:30 Acetaminophen (Tylenol Tab) 650 mg Q6H PRN PO .PAIN 1-3 OR TEMP Last administered on 07/24/18 12:11; Admin Dose 650 MG; Start 07/11/18 at 05:30 Atorvastatin Calcium (Lipitor) 40 mg HS PO Last administered on 07/25/18 21:42; Admin Dose 40 MG; Start 07/11/18 at 21:00 Simethicone (Mylicon) 80 mg QID PRN GTB DISTENSION/GAS/BLOATING Last administered on 07/16/18 17:28; Admin Dose 80 MG; Start 07/13/18 at 12:30 Guaifenesin (Mucinex) 600 mg BID PO Last administered on 07/26/18 08:56; Admin Dose 600 MG; Start 07/15/18 at 10:30 Sodium Chloride (Deep Sea) 2 spray BID PRN NASAL congestion; Start 07/15/18 at 10:30 Potassium Chloride 50 ml @ 50 mls/hr SEE DIRECTION PRN IVPB K+ LEVEL Last administered on 07/21/18 13:44; Admin Dose 50 MLS/HR; Start 07/20/18 at 23:30 Magnesium Sulfate/ Dextrose 100 ml @ 100 mls/hr PRN PRN IVPB PENDING LAB VALUE; Start 07/20/18 at 23:30 Midazolam HCl (Versed) 2 mg Q2H PRN IV AGITATION; Start 07/21/18 at 04:30 Acetaminophen (Tylenol Supp) 650 mg Q4H PRN [place] MILD PAIN(1-3) OR TEMP>38C Last administered on 07/23/18 17:29; Admin Dose 650 MG; Start 07/21/18 at 04:30 Albumin Human 250 ml @ 500 mls/hr PRN PRN IV CVP< 8, OR SBP<90 Last administered on 07/22/18 21:42; Admin Dose 500 MLS/HR; Start 07/21/18 at 08:00 Acetaminophen (Tylenol Liquid) 650 mg Q6 PRN NGT MILD PAIN(1-3)OR ELEVATED TEMP Last administered on 07/23/18 06:10; Admin Dose 650 MG; Start 07/21/18 at 09:00 Pantoprazole (Protonix Iv) 40 mg DAILY@06 IV Last administered on 07/26/18 05:39; Admin Dose 40 MG; Start 07/22/18 at 06:00 Piperacillin Sod/ Tazobactam Sod 100 ml @ 200 mls/hr Q6 IVPB Last administered on 07/26/18 12:32; Admin Dose 200 MLS/HR; Start 07/21/18 at 12:00 Morphine Sulfate (morphine) 1 mg Q4 PRN IV PAIN LEVEL 1-5 Last administered on 07/24/18 22:23; Admin Dose 1 MG; Start 07/22/18 at 11:30 Morphine Sulfate (morphine) 2 mg Q4 PRN IV PAIN LEVEL 6-10 Last administered on 07/26/18 08:22; Admin Dose 2 MG; Start 07/22/18 at 11:30 Aspirin (Aspirin) 81 mg DAILY NGT Last administered on 07/26/18 08:57; Admin Dose 81 MG; Start 07/23/18 at 09:00 Enoxaparin Sodium (Lovenox) 30 mg DAILY SC Last administered on 07/26/18 12:33; Admin Dose 30 MG; Start 07/23/18 at 09:00 Vancomycin HCl (Vanco Iv Per Pharmacy) VANCOMYCIN PER PHARMACY PER PROTOCOL XX ; Start 07/23/18 at 16:00 Vancomycin/Sodium Chloride 250 ml @ 125 mls/hr Q12H IVPB Last administered on 07/26/18at 05:39; Admin Dose 125 MLS/HR; Start 07/24/18 at 06:00 Albuterol/ Ipratropium (Duoneb) 3 ml Q6H RESP THERAPY HHN Last administered on 07/26/18at 02:20; Admin Dose 3 ML; Start 07/24/18 at 02:00 Albuterol/ Ipratropium (Duoneb) 3 ml Q2H RESP THERAPY PRN HHN sob Last administered on 07/23/18at 21:00; Admin Dose 3 ML; Start 07/23/18 at 20:30 Furosemide (Lasix) 40 mg DAILY@0600 IV Last administered on 07/26/18 05:44; Admin Dose 40 MG; Start 07/24/18 at 08:00 Lisinopril (Zestril) 5 mg BID PO Last administered on 07/26/18 08:57; Admin Dose 5 MG; Start 07/24/18 at 14:30 Metoprolol Succinate (Toprol Xl) 25 mg DAILY PO Last administered on 07/26/18 08:57; Admin Dose 25 MG; Start 07/25/18 at 09:00 Diagnostic Test (Pha) (Accu-Chek) ea 02 XX ; Start 07/27/18 at 02:00 Insulin Glargine (Lantus) 25 units DAILY@0800 SC ; Start 07/27/18 at 08:00 Insulin Aspart (Novolog Insulin Pen) 12 unit WITH MEALS SC Last administered on 07/26/18 12:34; Admin Dose 12 UNIT; Start 07/26/18 at 11:30 Insulin Aspart (Novolog Insulin Pen) NOVOLOG *MODERATE* ALGORITHM WITH MEALS BEDTIME SC Last administered on 07/26/18 12:34; Admin Dose 4 UNIT; Start 07/26/18 at 11:30 Nitroglycerin/ Dextrose 250 ml @ 1.5 mls/hr TITRATE IV ; Start 07/26/18 at 08:30 Miscellaneous Information 1 ea NOTE XX ; Start 07/26/18 at 08:30 Glucose (Glutose) 15 gm Q15M PRN PO DECREASED GLUCOSE; Start 07/26/18 at 08:30 Glucose (Glutose) 22.5 gm Q15M PRN PO DECREASED GLUCOSE; Start 07/26/18 at 08:30 Dextrose (D50w Syringe) 25 ml Q15M PRN IV DECREASED GLUCOSE; Start 07/26/18 at 08:30 Dextrose (D50w Syringe) 50 ml Q15M PRN IV DECREASED GLUCOSE; Start 07/26/18 at 08:30 Glucagon (Glucagen) 1 mg Q15M PRN IM DECREASED GLUCOSE; Start 07/26/18 at 08:30 Glucose (Glutose) 15 gm Q15M PRN BUCCAL DECREASED GLUCOSE; Start 07/26/18 at 08:30 VTE Prophylaxis Risk score (from Ns)>0 risk: 15 SCD applied (from Ns): Yes Lines/Catheters IV Catheter Type: Galindo in Place: Yes Cont'd galindo catheter reason: terminal illness/intractable pain Assessment/Plan Hospital Course Subjective Patient developed mild chest pain, and ST elevations in V1 V2, given nitroglycerin x3, and chest pain-free afterwards. Objective Physical exam General: Patient is laying in bed, answers questions Mentation: Patient is alert and oriented Head: Normocephalic atraumatic Eyes: EOMI, pupils reactive to light Neck: Supple, nontender, midline Respiratory: Clear to auscultation bilaterally Cardiovascular: regular rate, no obvious murmurs Gastrointestinal: non-tender to palpation, bowel sounds heard. Neurological: Moves all extremities spontaneously Skin: surgical site bandaged, CDI, Assessment/Plan CAD with unstable angina s/p 3V CABG 07/20/18 - CT surgery on board and appreciate consultation - Continue cardiac meds with aspirin, statin, metoprolol, lisinopril when able - Plavix/aspirin to restart when ok with cards/CT surgery acute hypoxic resp distress -2/2 to above CABG -extubated now, on NC hypotension -2/2 CABG -off pressors Hypertension -Managed per cardiology recommendations fever/white count -blood cultures done -still cont empiric abx, infectious disease on board Uncontrolled diabetes - A1c at OSH noted to be 12.3 - Diabetic education consultation appreciated - Lantus and Novolog on board and adjustments made for better control - Upon d/c will give Metformin/Jardiance, Basaglar and Novolog- per DM educator recommendation Hypertension - Continue current medications Cough with congestion - Mucinex for relief - Nasal saline PRN Disposition over 40 minutes of critical care time spent on this evaluation -cont ICU stay -New ST elevations today, spoke with CT surgery and cardiology, will monitor for now. FREDIS FALLON Jul 26, 2018 12:41
--- NOTE | 2018-07-26 13:03 | PN ---
Date/Time of Note Date/Time of Note DATE: 07/26/18 TIME: 13:01 Assessment/Plan Lines/Catheters IV Catheter Type (from Nrsg): Roa in Place (from Nrsg): Yes Assessment/Plan Assessment/Plan Status post coronary artery bypass grafting Hemodynamically stable Patient did have EKG changes No chest pain at the present time No hypotension EKG on the monitor has gone back to normal Will monitor for any possible chest pain To check troponins Subjective 24 Hr Interval Summary Constitutional: improved Pain Control: mild Exam/Review of Systems Vital Signs Vitals Vital Signs Date Temp Pulse Resp B/P (MAP) Pulse Ox O2 O2 Flow FiO2 Time Delivery Rate 07/26/18 98.0 65 21 116/66 100 Nasal 5.0 12:00 (83) Cannula 07/26/18 27 04:44 Intake and Output 07/25/18 07/25/18 07/26/18 1515:00 23:00 07:00 IntakeIntake Total 454.73 ml 285.0 ml 428.2 ml OutputOutput Total 1070 ml 125 ml 0 ml BalanceBalance -615.27 ml 160.0 ml 428.2 ml Exam Eyes: nl conjunctiva, EOMI, nl lids, nl sclera ENMT: nl external ears & nose, nl lips & teeth, nl nasal mucosa & septum, mucosa pink and moist Neck: supple, non-tender Respiratory: clear to auscultation, normal air movement Cardiovascular: regular rate and rhythm, nl pulses Musculoskeletal: nl extremities to inspection, nl gait and stance Results Result Diagram: 07/26/18 0410 07/26/18 041 VANIA LAMB MD Jul 26, 2018 13:03
--- NOTE | 2018-07-26 15:28 | CONS ---
Assessment/Plan Assessment/Plan Hospital Course (Demo Recall) No acute changes overnight patient is alert sitting up in a chair no fevers. Family at bedside. WBC 13.1 H&H 10.8 and 33.4 platelets 204 neutrophils 81.6 BUN 28 creatinine 0.96 Chest x-ray this morning revealed cardiomegaly. Dense left lower lobe consolidation versus collapse with small effusion Antimicrobials: Vanco Zosyn Microbiology: All cultures have been negative Indwelling: right IJ triple-lumen catheter with introducer Physical examination: Well-developed elderly man who is alert, in no distress. Head atraumatic normocephalic. Sclera nonicteric. Buccal mucosa dry. Neck is supple, chest rise symmetrical, breath sounds diminished bases. Heart: S1-S2. Abdomen, distended, soft, bowel sounds present. Extremities with trace edema. Assessment: 1. Systemic inflammatory response syndrome with postoperative fevers, likely pulmonary source, possibly secondary to multiple lines, resolving 2. Multivessel coronary artery disease, status post CABG 3. Diabetes 4. Status post thymectomy 5. Acute kidney insufficiency 6. Pleural effusion, status post thoracentesis Plan: Patient is doing better, but will change antibiotics to Cefepime and doxycycline, continue incentive spirometer, follow pulmonary cardiology and cardiothoracic surgery recommendations Consultation Date/Type/Reason Admit Date/Time Jul 11, 2018 at 04:15 Initial Consult Date 07/17/18 Type of Consult id Requesting Provider: VANIA LAMB MD Date/Time of Note DATE: 07/26/18 TIME: 15:24 Exam/Review of Systems Exam Vitals Vital Signs Date Temp Pulse Resp B/P (MAP) Pulse Ox O2 O2 Flow FiO2 Time Delivery Rate 07/26/18 98.0 65 21 116/66 100 Nasal 5.0 12:00 (83) Cannula 07/26/18 27 04:44 Intake and Output 07/25/18 07/25/18 07/26/18 1515:00 23:00 07:00 IntakeIntake Total 454.73 ml 285.0 ml 428.2 ml OutputOutput Total 1070 ml 125 ml 0 ml BalanceBalance -615.27 ml 160.0 ml 428.2 ml Results Result Diagram: 07/26/18 0410 07/26/18 0410 Results 24hrs Laboratory Tests Test 07/25/18 16:26 07/25/18 17:05 07/25/18 17:12 07/25/18 19:20 Prothrombin Time 15.4 H Prothrombin Time 1.2 Ratio INR 1.21 International Normalized Ratio Bedside Glucose 97 93 Body Fluid Type THORACENTESIS FL UID Body Fluid 425.0 Volume Body Fluid Color RED Body Fluid BLOODY Appearance Body Fluid WBC 785 Body Fluid RBC 091582 (Auto) Body Fluid 51.5 Polynuclear WBCs (%) Body Fluid 48.5 Mononuclear Cells % Auto Body Fluid 92 Glucose Body Fluid Total 2.9 Protein Body Fluid 897 Lactate Dehydrog enase Test 07/25/18 21:49 07/25/18 23:16 07/26/18 01:08 07/26/18 04:10 Bedside Glucose 83 94 101 White Blood 13.1 H Count Red Blood Count 3.78 L Hemoglobin 10.8 L Hematocrit 33.4 L Mean Corpuscular 88.4 Volume Mean Corpuscular 28.6 L Hemoglobin Mean Corpuscular 32.3 Hemoglobin Deja nt Red Cell 12.9 Distribution Width Platelet Count 204 Mean Platelet 10.2 Volume Immature 1.000 H Granulocytes % Neutrophils % 81.6 H Lymphocytes % 8.6 L Monocytes % 8.0 Eosinophils % 0.6 Basophils % 0.2 Nucleated Red 0.0 Blood Cells % Immature 0.130 H Granulocytes # Neutrophils # 10.7 H Lymphocytes # 1.1 Monocytes # 1.1 H Eosinophils # 0.1 Basophils # 0.0 Nucleated Red 0.0 Blood Cells # Sodium Level 139 Potassium Level 3.8 Chloride Level 105 Carbon Dioxide 20 L Level Anion Gap 14 H Blood Urea 28 H Nitrogen Creatinine 0.96 Est Glomerular > 60 Filtrat Rate mL/min Glucose Level 109 Calcium Level 8.6 Magnesium Level 2.3 Total Bilirubin 2.4 H Direct Bilirubin 0.80 H Indirect 1.6 H Bilirubin Aspartate Amino 261 H Transf (AST/SGOT ) Alanine 329 H Aminotransferase (ALT/SGPT) Alkaline 153 H Phosphatase Total Protein 6.1 Albumin 3.1 L Globulin 3.00 Albumin/Globulin 1.03 Ratio Test 07/26/18 05:00 07/26/18 05:38 07/26/18 06:59 07/26/18 08:47 Blood Gas Blood arterial Specimen Source Arterial Blood 07/26/2018 4:40:42 Date Drawn AM Arterial Blood 7.437 pH (Temp corrected) Arterial Blood 30.1 L pCO2 (Temp correct) Arterial Blood 63.9 L pO2 (Temp corrected) Arterial Blood 19.8 L HCO3 Arterial Blood -3.4 L Base Excess Arterial Blood 92.0 L Oxygen Saturatio n Tima Test ACCEPTAB Arterial Blood Right HEEL Gas Puncture Site Arterial 0.3 Blood Carboxyhem oglobin Arterial Blood 0.1 Methemoglobin Blood Gas A-a O2 93.0 H Differential Oxyhemoglobin 91.6 L Percent Blood Gas 37.0 Temperature Blood Gas NASAL CANNULA Modality FiO2 27.0 Blood Gas UP Notified Whom Blood Gas 07/26/2018 4:52:02 Notified Time AM Bedside Glucose 126 135 Creatinine 0.86 Kinase MB (Mass) Troponin I 1.780 *H Test 07/26/18 12:31 07/26/18 13:50 Bedside Glucose 212 Creatine Kinase 84 Creatine Kinase 0.8 Index Creatinine 0.65 Kinase MB (Mass) Troponin I 1.590 *H Medications Medication Current Medications IV Flush (NS 3 ml) 3 ml PER PROTOCOL IV ; Start 07/11/18 at 05:30 Ondansetron HCl (Zofran Inj) 4 mg Q6H PRN IV NAUSEA/VOMITING Last administered on 07/24/18 21:16; Admin Dose 4 MG; Start 07/11/18 at 05:30 Nitroglycerin (Nitroglycerin (Sl Tab) 0.4 Mg) 1 tab Q5M PRN SL .CHEST PAIN Last administered on 07/26/18 08:58; Admin Dose 1 TAB; Start 07/11/18 at 05:30 Acetaminophen (Tylenol Tab) 650 mg Q6H PRN PO .PAIN 1-3 OR TEMP Last administered on 07/24/18 12:11; Admin Dose 650 MG; Start 07/11/18 at 05:30 Atorvastatin Calcium (Lipitor) 40 mg HS PO Last administered on 07/25/18 21:42; Admin Dose 40 MG; Start 07/11/18 at 21:00 Simethicone (Mylicon) 80 mg QID PRN GTB DISTENSION/GAS/BLOATING Last admin istered on 07/16/18 17:28; Admin Dose 80 MG; Start 07/13/18 at 12:30 Guaifenesin (Mucinex) 600 mg BID PO Last administered on 07/26/18 08:56; Admin Dose 600 MG; Start 07/15/18 at 10:30 Sodium Chloride (Deep Sea) 2 spray BID PRN NASAL congestion; Start 07/15/18 at 10:30 Potassium Chloride 50 ml @ 50 mls/hr SEE DIRECTION PRN IVPB K+ LEVEL Last administered on 07/21/18 13:44; Admin Dose 50 MLS/HR; Start 07/20/18 at 23:30 Magnesium Sulfate/ Dextrose 100 ml @ 100 mls/hr PRN PRN IVPB PENDING LAB VALUE; Start 07/20/18 at 23:30 Midazolam HCl (Versed) 2 mg Q2H PRN IV AGITATION; Start 07/21/18 at 04:30 Acetaminophen (Tylenol Supp) 650 mg Q4H PRN [place] MILD PAIN(1-3) OR TEMP>38C Last administered on 07/23/18 17:29; Admin Dose 650 MG; Start 07/21/18 at 04:30 Albumin Human 250 ml @ 500 mls/hr PRN PRN IV CVP< 8, OR SBP<90 Last administered on 07/22/18 21:42; Admin Dose 500 MLS/HR; Start 07/21/18 at 08:00 Acetaminophen (Tylenol Liquid) 650 mg Q6 PRN NGT MILD PAIN(1-3)OR ELEVATED TEMP Last administered on 07/23/18 06:10; Admin Dose 650 MG; Start 07/21/18 at 09:00 Pantoprazole (Protonix Iv) 40 mg DAILY@06 IV Last administered on 07/26/18 05:39; Admin Dose 40 MG; Start 07/22/18 at 06:00 Piperacillin Sod/ Tazobactam Sod 100 ml @ 200 mls/hr Q6 IVPB Last administered on 07/26/18 12:32; Admin Dose 200 MLS/HR; Start 07/21/18 at 12:00 Morphine Sulfate (morphine) 1 mg Q4 PRN IV PAIN LEVEL 1-5 Last administered on 07/24/18 22:23; Admin Dose 1 MG; Start 07/22/18 at 11:30 Morphine Sulfate (morphine) 2 mg Q4 PRN IV PAIN LEVEL 6-10 Last administered on 07/26/18 08:22; Admin Dose 2 MG; Start 07/22/18 at 11:30 Aspirin (Aspirin) 81 mg DAILY NGT Last administered on 07/26/18 08:57; Admin Dose 81 MG; Start 07/23/18 at 09:00 Enoxaparin Sodium (Lovenox) 30 mg DAILY SC Last administered on 07/26/18 12:33; Admin Dose 30 MG; Start 07/23/18 at 09:00 Vancomycin HCl (Vanco Iv Per Pharmacy) VANCOMYCIN PER PHARMACY PER PROTOCOL XX ; Start 07/23/18 at 16:00 Vancomycin/Sodium Chloride 250 ml @ 125 mls/hr Q12H IVPB Last administered on 07/26/18 05:39; Admin Dose 125 MLS/HR; Start 07/24/18 at 06:00 Albuterol/ Ipratropium (Duoneb) 3 ml Q6H RESP THERAPY HHN Last administered on 07/26/18 02:20; Admin Dose 3 ML; Start 07/24/18 at 02:00 Albuterol/ Ipratropium (Duoneb) 3 ml Q2H RESP THERAPY PRN HHN sob Last administered on 07/23/18 21:00; Admin Dose 3 ML; Start 07/23/18 at 20:30 Furosemide (Lasix) 40 mg DAILY@0600 IV Last administered on 07/26/18 05:44; Admin Dose 40 MG; Start 07/24/18 at 08:00 Lisinopril (Zestril) 5 mg BID PO Last administered on 07/26/18 08:57; Admin Dose 5 MG; Start 07/24/18 at 14:30 Metoprolol Succinate (Toprol Xl) 25 mg DAILY PO Last administered on 07/26/18 08:57; Admin Dose 25 MG; Start 07/25/18 at 09:00 Diagnostic Test (Pha) (Accu-Chek) XX ; Start 07/27/18 at 02:00 Insulin Glargine (Lantus) 25 units DAILY@0800 SC ; Start 07/27/18 at 08:00 Insulin Aspart (Novolog Insulin Pen) 12 unit WITH MEALS SC Last administered on 07/26/18 12:34; Admin Dose 12 UNIT; Start 07/26/18 at 11:30 Insulin Aspart (Novolog Insulin Pen) NOVOLOG *MODERATE* ALGORITHM WITH MEALS BEDTIME SC Last administered on 07/26/18 12:34; Admin Dose 4 UNIT; Start 07/26/18 at 11:30 Nitroglycerin/ Dextrose 250 ml @ 1.5 mls/hr TITRATE IV ; Start 07/26/18 at 08:30 Miscellaneous Information 1 ea NOTE XX ; Start 07/26/18 at 08:30 Glucose (Glutose) 15 gm Q15M PRN PO DECREASED GLUCOSE; Start 07/26/18 at 08:30 Glucose (Glutose) 22.5 gm Q15M PRN PO DECREASED GLUCOSE; Start 07/26/18 at 08:30 Dextrose (D50w Syringe) 25 ml Q15M PRN IV DECREASED GLUCOSE; Start 07/26/18 at 08:30 Dextrose (D50w Syringe) 50 ml Q15M PRN IV DECREASED GLUCOSE; Start 07/26/18 at 08:30 Glucagon (Glucagen) 1 mg Q15M PRN IM DECREASED GLUCOSE; Start 07/26/18 at 08:30 Glucose (Glutose) 15 gm Q15M PRN BUCCAL DECREASED GLUCOSE; Start 07/26/18 at 08:30 KATHY LOU NP Jul 26, 2018 15:28
[2018-07-26] MEDS: CEFEPIME 1GM/50 ML (PMX) 50 ML IVPB SCH (21:40)
[2018-07-26] MEDS: DOXYCYCLINE 100 MG TAB PO SCH (21:41)
[2018-07-26] MEDS: ATORVASTATIN 40 MG TAB PO SCH (21:43)
[2018-07-27] VITALS (25 sets, daily range): BP systolic 128–187; BP diastolic 54–111; PULSE 65–86; RESP 14–31
[2018-07-27] MEDS: ACCU-CHEK XX SCH (01:27)
[2018-07-27] MEDS: ALBUTEROL/IPRATROPIUM (NEB) 3 ML AMP HHN SCH ×4 (01:35→21:57)
[2018-07-27] MEDS: FUROSEMIDE 40 MG INJ IV SCH (06:06)
[2018-07-27] MEDS: PANTOPRAZOLE 40 MG INJ IV SCH (06:06)
[2018-07-27] MEDS ORDERED: POTASSIUM CHLORIDE (SR) 20 MEQ TAB PO STA (07:42)
[2018-07-27] MEDS ORDERED: NEUTRA-PHOS 250 MG PACKET PO ONE (08:00)
--- NOTE | 2018-07-27 08:10 | PN ---
DATE: 07/27/2018 SUBJECTIVE: The patient is currently stable. No events overnight. The patient had episode of chest pain, since resolved. OBJECTIVE: VITAL SIGNS: Blood pressure is 166/71, respirations 25, pulse 77, temperature 98.6. HEENT: Head is normocephalic. NECK: Supple. HEART: Regular rate. LUNGS: Show diminished breath sounds at the base. ABDOMEN: Soft, nontender to palpation without rebound or guarding. EXTREMITIES: Negative for clubbing, cyanosis. Trace edema. DERMATOLOGIC: No rashes. MUSCULOSKELETAL: No joint effusion. NEUROLOGIC: No change in exam. MEDICATIONS: Reviewed. LABORATORY DATA: Shows sodium 141, potassium 3.1, BUN 22, creatinine 0.88, phosphorus 2.2. White co unt 12.1, hemoglobin 13.0, platelet count is 214. Cultures have been reviewed. IMAGING STUDY: The patient's chest x-ray was reviewed. ASSESSMENT AND PLAN: 1. Nonoliguric acute kidney injury with previous baseline creatinine of 0.9 mg/dL. Etiology of acut e kidney injury is secondary to hemodynamics. The patient's renal function has improved and stable o verall. Continue current treatment plan, supportive care, renally dose all medicines, continue diure tics. Monitor electrolytes and renal function closely. Continue TYLER inhibitor. 2. Acute heart failure. The patient is clinically improving. Continue diuretic therapy, monitor I' s and O's, and electrolytes closely. 3. Anemia. Continue to monitor hemoglobin and hematocrit levels. 4. Mineral bone disorder. Monitor calcium and phosphorus levels. 5. Hypernatremia, improved. Continue to monitor. 6. Coronary artery disease status post 3-vessel coronary artery bypass graft. Continue medical marina gemvioleta. Follow up with CT surgery. 7. Status post cardiogenic shock. Continue diuretic therapy as stated above, currently off inotropi c support. 8. Acute respiratory failure. The patient is status post extubation, currently stable. Follow up w ith pulmonary. 9. Diabetes. Continue current insulin regimen. 10. Hypertension. Continue current blood pressure regimen. 11. Systemic inflammatory response syndrome, continue medical management. Follow up with primary te am and infectious disease. 12. Hypokalemia. We will monitor and replete with potassium chloride. Dictated By: MARCO ANTONIO CANALES/DEYA Conf#: [id number] DID#: [id number] CC: VANIA LAMB MD; SUZETTE SIMMONS MD; FREDIS FALLON MD;*[facility]*
[2018-07-27] MEDS: GUAIFENESIN LA 600 MG TABSR PO SCH ×2 (08:42→21:24)
[2018-07-27] MEDS: DOXYCYCLINE 100 MG TAB PO SCH ×2 (08:42→21:24)
[2018-07-27] MEDS: METOPROLOL (XL) 25 MG TAB PO SCH (08:42)
[2018-07-27] MEDS: ASPIRIN 81 MG TAB NGT SCH (08:42)
[2018-07-27] MEDS: LISINOPRIL 5 MG TAB PO SCH (08:43)
[2018-07-27] MEDS: CEFEPIME 1GM/50 ML (PMX) 50 ML IVPB SCH ×2 (08:43→21:10)
[2018-07-27] MEDS: INSULIN GLARGINE [LANTus] (100 UNITS/ML) SYG SC SCH (08:45)
[2018-07-27] MEDS: INSULIN ASPART [NOVOLOG] 3 ML PEN SC SCH ×7 (08:45→21:00)
--- NOTE | 2018-07-27 08:45 | CONS ---
Assessment/Plan Assessment/Plan Assessment/Plan (Daily) Assessment and recommendations; next 1. Patient admitted with acute HI status post CABG surgery. 2. Possible underlying COPD with acute bronchitis. 3. History of diabetes and hypertension. 4. Prior history of thymectomy. 5. Mild CHF. Continue current supportive care. Add albuterol 4 times daily via nebulizer. Consider transfer to telemetry unit. Consider stopping antibiotics. Consultation Date/Type/Reason Admit Date/Time Jul 11, 2018 at 04:15 Initial Consult Date 07/17/18 Type of Consult Pulmonary/critical care Patient's condition is stable overall. Complains of cough with very scant sputum production. Denies any chest pain, wheezing. General exam; elderly male, awake alert, currently no distress. Reason for Consultation HEENT exam; supple neck, no JVD. No lymphadenopathy. Midline trachea. No thyromegaly. Patient has fair dentition. Chest exam; diminished but clear breath sounds. S1-S2 audible, no murmurs. Regular rhythm. Dressing applied over the sternum. Abdomen exam; soft, nontender. No organomegaly. No distention. Bowel sounds audible. Extremity exam; no peripheral edema or clubbing. Pulses 1+. CARDIAC REHAB NURSE exam; no focal deficit. Requesting Provider: VANIA LAMB MD Date/Time of Note DATE: 07/27/18 TIME: 08:43 Exam/Review of Systems Exam Vitals Vital Signs Date Temp Pulse Resp B/P (MAP) Pulse Ox O2 O2 Flow FiO2 Time Delivery Rate 07/27/18 96 3.0 27 07:16 07/27/18 75 25 05:32 07/27/18 166/71 05:30 (102) 07/27/18 Nasal 05:00 Cannula 07/27/18 98.0 03:32 Intake and Output 07/26/18 07/26/18 07/27/18 1414:59 22:59 06:59 IntakeIntake Total 827.33 ml 1420 ml 200 ml OutputOutput Total 1325 ml 200 ml 1350 ml BalanceBalance -497.67 ml 1220 ml -1150 ml Results Result Diagram: 07/27/18 0500 07/27/18 0500 Results 24hrs Laboratory Tests Test 07/26/18 08:47 07/26/18 12:31 07/26/18 13:50 07/26/18 17:35 Creatinine Kinase MB 0.86 0.65 (Mass) Troponin I 1.780 *H 1.590 *H Bedside Glucose 212 174 Creatine Kinase 84 Creatine Kinase Index 0.8 Test 07/26/18 21:48 07/27/18 05:00 Bedside Glucose 114 White Blood Count 12.1 H Red Blood Count 4.52 L Hemoglobin 13.0 #L Hematocrit 38.9 L Mean Corpuscular Volume 86.1 Mean Corpuscular 28.8 L Hemoglobin Mean Corpuscular 33.4 Hemoglobin Concent Red Cell Distribution 13.0 Width Platelet Count 214 Mean Platelet Volume 9.7 Immature Granulocytes % 1.100 H Neutrophils % 81.6 H Lymphocytes % 8.9 L Monocytes % 7.5 Eosinophils % 0.7 Basophils % 0.2 Nucleated Red Blood 0.0 Cells % Immature Granulocytes # 0.130 H Neutrophils # 9.9 H Lymphocytes # 1.1 Monocytes # 0.9 Eosinophils # 0.1 Basophils # 0.0 Nucleated Red Blood 0.0 Cells # Sodium Level 141 Potassium Level 3.1 L Chloride Level 101 Carbon Dioxide Level 26 Anion Gap 14 H Blood Urea Nitrogen 22 H Creatinine 0.88 Est Glomerular Filtrat > 60 Rate mL/min Glucose Level 156 Calcium Level 8.6 Phosphorus Level 2.2 #L Magnesium Level 2.1 Medications Medication Current Medications IV Flush (NS 3 ml) 3 ml PER PROTOCOL IV ; Start 07/11/18 at 05:30 Ondansetron HCl (Zofran Inj) 4 mg Q6H PRN IV NAUSEA/VOMITING Last administered on 07/24/18at 21:16; Admin Dose 4 MG; Start 07/11/18 at 05:30 Nitroglycerin (Nitroglycerin (Sl Tab) 0.4 Mg) 1 tab Q5M PRN SL .CHEST PAIN Last administered on 07/26/18 08:58; Admin Dose 1 TAB; Start 07/11/18 at 05:30 Acetaminophen (Tylenol Tab) 650 mg Q6H PRN PO .PAIN 1-3 OR TEMP Last administered on 07/24/18at 12:11; Admin Dose 650 MG; Start 07/11/18 at 05:30 Atorvastatin Calcium (Lipitor) 40 mg HS PO Last administered on 07/26/18at 21:43; Admin Dose 40 MG; Start 07/11/18 at 21:00 Simethicone (Mylicon) 80 mg QID PRN GTB DISTENSION/GAS/BLOATING Last administered on 07/16/18 17:28; Admin Dose 80 MG; Start 07/13/18 at 12:30 Guaifenesin (Mucinex) 600 mg BID PO Last administered on 07/26/18 21:40; Admin Dose 600 MG; Start 07/15/18 at 10:30 Sodium Chloride (Deep Sea) 2 spray BID PRN NASAL congestion; Start 07/15/18 at 10:30 Potassium Chloride 50 ml @ 50 mls/hr SEE DIRECTION PRN IVPB K+ LEVEL Last administered on 07/21/18 13:44; Admin Dose 50 MLS/HR; Start 07/20/18 at 23:30 Magnesium Sulfate/ Dextrose 100 ml @ 100 mls/hr PRN PRN IVPB PENDING LAB VALUE; Start 07/20/18 at 23:30 Midazolam HCl (Versed) 2 mg Q2H PRN IV AGITATION; Start 07/21/18 at 04:30 Acetaminophen (Tylenol Supp) 650 mg Q4H PRN ID MILD PAIN(1-3) OR TEMP>38C Last administered on 07/23/18 17:29; Admin Dose 650 MG; Start 07/21/18 at 04:30 Albumin Human 250 ml @ 500 mls/hr PRN PRN IV CVP< 8, OR SBP<90 Last administered on 07/22/18 21:42; Admin Dose 500 MLS/HR; Start 07/21/18 at 08:00 Acetaminophen (Tylenol Liquid) 650 mg Q6 PRN NGT MILD PAIN(1-3)OR ELEVATED TEMP Last administered on 07/23/18 06:10; Admin Dose 650 MG; Start 07/21/18 at 09:00 Pantoprazole (Protonix Iv) 40 mg DAILY@06 IV Last administered on 07/27/18 06:06; Admin Dose 40 MG; Start 07/22/18 at 06:00 Morphine Sulfate (morphine) 1 mg Q4 PRN IV PAIN LEVEL 1-5 Last administered on 07/26/18 17:46; Admin Dose 1 MG; Start 07/22/18 at 11:30 Morphine Sulfate (morphine) 2 mg Q4 PRN IV PAIN LEVEL 6-10 Last administered on 07/26/18 08:22; Admin Dose 2 MG; Start 07/22/18 at 11:30 Aspirin (Aspirin) 81 mg DAILY NGT Last administered on 07/26/18 08:57; Admin Dose 81 MG; Start 07/23/18 at 09:00 Enoxaparin Sodium (Lovenox) 30 mg DAILY SC Last administered on 07/26/18 12:33; Admin Dose 30 MG; Start 07/23/18 at 09:00 Albuterol/ Ipratropium (Duoneb) 3 ml Q6H RESP THERAPY HHN Last administered on 07/27/18at 01:35; Admin Dose 3 ML; Start 07/24/18 at 02:00 Albuterol/ Ipratropium (Duoneb) 3 ml Q2H RESP THERAPY PRN HHN sob Last admin istered on 07/23/18 21:00; Admin Dose 3 ML; Start 07/23/18 at 20:30 Furosemide (Lasix) 40 mg DAILY@0600 IV Last administered on 07/27/18 06:06; Admin Dose 40 MG; Start 07/24/18 at 08:00 Lisinopril (Zestril) 5 mg BID PO Last administered on 07/26/18 21:41; Admin Dose 5 MG; Start 07/24/18 at 14:30 Metoprolol Succinate (Toprol Xl) 25 mg DAILY PO Last administered on 07/26/18 08:57; Admin Dose 25 MG; Start 07/25/18 at 09:00 Diagnostic Test (Pha) (Accu-Chek) 1 ea 02 XX ; Start 07/27/18 at 02:00 Insulin Glargine (Lantus) 25 units DAILY@0800 SC ; Start 07/27/18 at 08:00 Insulin Aspart (Novolog Insulin Pen) 12 unit WITH MEALS SC Last administered on 07/26/18at 17:38; Admin Dose 12 UNIT; Start 07/26/18 at 11:30 Insulin Aspart (Novolog Insulin Pen) NOVOLOG *MODERATE* ALGORITHM WITH MEALS BEDTIME SC Last administered on 07/26/18at 17:38; Admin Dose 2 UNIT; Start 07/26/18 at 11:30 Nitroglycerin/ Dextrose 250 ml @ 1.5 mls/hr TITRATE IV ; Start 07/26/18 at 08:30 Miscellaneous Information 1 ea NOTE XX ; Start 07/26/18 at 08:30 Glucose (Glutose) 15 gm Q15M PRN PO DECREASED GLUCOSE; Start 07/26/18 at 08:30 Glucose (Glutose) 22.5 gm Q15M PRN PO DECREASED GLUCOSE; Start 07/26/18 at 08:30 Dextrose (D50w Syringe) 25 ml Q15M PRN IV DECREASED GLUCOSE; Start 07/26/18 at 08:30 Dextrose (D50w Syringe) 50 ml Q15M PRN IV DECREASED GLUCOSE; Start 07/26/18 at 08:30 Glucagon (Glucagen) 1 mg Q15M PRN IM DECREASED GLUCOSE; Start 07/26/18 at 08:30 Glucose (Glutose) 15 gm Q15M PRN BUCCAL DECREASED GLUCOSE; Start 07/26/18 at 08:30 Cefepime HCl 50 ml @ 100 mls/hr Q12 IVPB Last administered on 07/26/18at 21:40; Admin Dose 100 MLS/HR; Start 07/26/18 at 21:00 Doxycycline Hyclate (Vibramycin) 100 mg BID PO Last administered on 07/26/18at 21:41; Admin Dose 100 MG; Start 07/26/18 at 21:00 KRANTHI VERA Jul 27, 2018 08:45
[2018-07-27] MEDS ORDERED: ALBUTEROL 0.083% (NEB) 2.5 MG/3 ML AMP HHN SCH (09:00)
--- NOTE | 2018-07-27 09:11 | PN ---
Date/Time of Note Date/Time of Note DATE: 07/27/18 TIME: 09:11 Assessment/Plan VTE Prophylaxis Risk score (from Nsg)>0 risk: 15 SCD applied (from Nsg): Yes Pharmacological prophylaxis: heparin Lines/Catheters IV Catheter Type (from Nrsg): Cordis Urinary Cath still in place: No Assessment/Plan Assessment/Plan 1. CAD with unstable angina s/p 3V CABG 07/20/18 - Patient doing well and no further episodes of chest pain - CT surgery on board and appreciate consultation - Cardiology on board and medication adjustments made today. Appreciate recommendations 2. acute hypoxic resp distress - resolved 3. HTN - continue current medications 4. Leukocytosis - ID on board and appreciate recommendations - WBC trending down - cultures negative for acute bacterial infection 5. Uncontrolled diabetes - A1c at OSH noted to be 12.3 - Diabetic education consultation appreciated - Lantus and Novolog on board and adjustments made for better control - Upon d/c will give Metformin/Jardiance, Basaglar and Novolog- per DM educator recommendation 6. Hypertension - Continue current medications 7. Disposition - stable for transfer to Telemetry - continue monitoring for chest pain Result Diagram: 07/27/18 0500 07/27/18 0500 Results 24hrs Laboratory Tests Test 07/26/18 12:31 07/26/18 13:50 07/26/18 17:35 07/26/18 21:48 Bedside Glucose 212 174 114 Creatine Kinase 84 Creatine Kinase Index 0.8 Creatinine Kinase MB 0.65 (Mass) Troponin I 1.590 *H Test 07/27/18 05:00 07/27/18 08:40 White Blood Count 12.1 H Red Blood Count 4.52 L Hemoglobin 13.0 #L Hematocrit 38.9 L Mean Corpuscular Volume 86.1 Mean Corpuscular 28.8 L Hemoglobin Mean Corpuscular 33.4 Hemoglobin Concent Red Cell Distribution 13.0 Width Platelet Count 214 Mean Platelet Volume 9.7 Immature Granulocytes % 1.100 H Neutrophils % 81.6 H Lymphocytes % 8.9 L Monocytes % 7.5 Eosinophils % 0.7 Basophils % 0.2 Nucleated Red Blood 0.0 Cells % Immature Granulocytes # 0.130 H Neutrophils # 9.9 H Lymphocytes # 1.1 Monocytes # 0.9 Eosinophils # 0.1 Basophils # 0.0 Nucleated Red Blood 0.0 Cells # Sodium Level 141 Potassium Level 3.1 L Chloride Level 101 Carbon Dioxide Level 26 Anion Gap 14 H Blood Urea Nitrogen 22 H Creatinine 0.88 Est Glomerular Filtrat > 60 Rate mL/min Glucose Level 156 Calcium Level 8.6 Phosphorus Level 2.2 #L Magnesium Level 2.1 Bedside Glucose 188 Subjective 24 Hr Interval Summary Free Text/Dictation Patient doing well and no complaints of chest pain this am. No acute overnight events. Exam/Review of Systems Exam Vitals Vital Signs Date Temp Pulse Resp B/P (MAP) Pulse Ox O2 O2 Flow FiO2 Time Delivery Rate 07/27/18 96 3.0 27 07:16 07/27/18 75 25 05:32 07/27/18 166/71 05:30 (102) 07/27/18 Nasal 05:00 Cannula 07/27/18 98.0 03:32 Intake and Output 07/26/18 07/26/18 07/27/18 1515:00 23:00 07:00 IntakeIntake Total 1066.33 ml 1180 ml 200 ml OutputOutput Total 1325 ml 200 ml 1350 ml BalanceBalance -258.67 ml 980 ml -1150 ml Exam General: Patient is laying in bed, answers questions Neck: Supple Chest: sternal dressing in place. no discharge or drainage Respiratory: Clear to auscultation bilaterally. no wheezing Cardiovascular: regular rate and rhythm, no obvious murmurs Gastrointestinal: soft, non-tender to palpation, bowel sounds heard. no rebound or guarding Neurological: Moves all extremities spontaneously Results Results 24hrs Laboratory Tests Test 07/26/18 12:31 07/26/18 13:50 07/26/18 17:35 07/26/18 21:48 Bedside Glucose 212 174 114 Creatine Kinase 84 Creatine Kinase Index 0.8 Creatinine Kinase MB 0.65 (Mass) Troponin I 1.590 *H Test 07/27/18 05:00 07/27/18 08:40 White Blood Count 12.1 H Red Blood Count 4.52 L Hemoglobin 13.0 #L Hematocrit 38.9 L Mean Corpuscular Volume 86.1 Mean Corpuscular 28.8 L Hemoglobin Mean Corpuscular 33.4 Hemoglobin Concent Red Cell Distribution 13.0 Width Platelet Count 214 Mean Platelet Volume 9.7 Immature Granulocytes % 1.100 H Neutrophils % 81.6 H Lymphocytes % 8.9 L Monocytes % 7.5 Eosinophils % 0.7 Basophils % 0.2 Nucleated Red Blood 0.0 Cells % Immature Granulocytes # 0.130 H Neutrophils # 9.9 H Lymphocytes # 1.1 Monocytes # 0.9 Eosinophils # 0.1 Basophils # 0.0 Nucleated Red Blood 0.0 Cells # Sodium Level 141 Potassium Level 3.1 L Chloride Level 101 Carbon Dioxide Level 26 Anion Gap 14 H Blood Urea Nitrogen 22 H Creatinine 0.88 Est Glomerular Filtrat > 60 Rate mL/min Glucose Level 156 Calcium Level 8.6 Phosphorus Level 2.2 #L Magnesium Level 2.1 Bedside Glucose 188 Medications Medication Current Medications IV Flush (NS 3 ml) 3 ml PER PROTOCOL IV ; Start 07/11/18 at 05:30 Ondansetron HCl (Zofran Inj) 4 mg Q6H PRN IV NAUSEA/VOMITING Last administered on 07/24/18 21:16; Admin Dose 4 MG; Start 07/11/18 at 05:30 Nitroglycerin (Nitroglycerin (Sl Tab) 0.4 Mg) 1 tab Q5M PRN SL .CHEST PAIN Last administered on 07/26/18 08:58; Admin Dose 1 TAB; Start 07/11/18 at 05:30 Acetaminophen (Tylenol Tab) 650 mg Q6H PRN PO .PAIN 1-3 OR TEMP Last administered on 07/24/18 12:11; Admin Dose 650 MG; Start 07/11/18 at 05:30 Atorvastatin Calcium (Lipitor) 40 mg HS PO Last administered on 07/26/18 21:43; Admin Dose 40 MG; Start 07/11/18 at 21:00 Simethicone (Mylicon) 80 mg QID PRN GTB DISTENSION/GAS/BLOATING Last administered on 07/16/18 17:28; Admin Dose 80 MG; Start 07/13/18 at 12:30 Guaifenesin (Mucinex) 600 mg BID PO Last administered on 07/27/18 08:42; Admin Dose 600 MG; Start 07/15/18 at 10:30 Sodium Chloride (Deep Sea) 2 spray BID PRN NASAL congestion; Start 07/15/18 at 10:30 Potassium Chloride 50 ml @ 50 mls/hr SEE DIRECTION PRN IVPB K+ LEVEL Last administered on 07/21/18 13:44; Admin Dose 50 MLS/HR; Start 07/20/18 at 23:30 Magnesium Sulfate/ Dextrose 100 ml @ 100 mls/hr PRN PRN IVPB PENDING LAB VALUE; Start 07/20/18 at 23:30 Midazolam HCl (Versed) 2 mg Q2H PRN IV AGITATION; Start 07/21/18 at 04:30 Acetaminophen (Tylenol Supp) 650 mg Q4H PRN SC MILD PAIN(1-3) OR TEMP>38C Last administered on 07/23/18 17:29; Admin Dose 650 MG; Start 07/21/18 at 04:30 Albumin Human 250 ml @ 500 mls/hr PRN PRN IV CVP< 8, OR SBP<90 Last administered on 07/22/18 21:42; Admin Dose 500 MLS/HR; Start 07/21/18 at 08:00 Acetaminophen (Tylenol Liquid) 650 mg Q6 PRN NGT MILD PAIN(1-3)OR ELEVATED TEMP Last administered on 07/23/18 06:10; Admin Dose 650 MG; Start 07/21/18 at 09:00 Pantoprazole (Protonix Iv) 40 mg DAILY@06 IV Last administered on 07/27/18 06:06; Admin Dose 40 MG; Start 07/22/18 at 06:00 Morphine Sulfate (morphine) 1 mg Q4 PRN IV PAIN LEVEL 1-5 Last administered on 07/26/18 17:46; Admin Dose 1 MG; Start 07/22/18 at 11:30 Morphine Sulfate (morphine) 2 mg Q4 PRN IV PAIN LEVEL 6-10 Last administered on 07/26/18 08:22; Admin Dose 2 MG; Start 07/22/18 at 11:30 Aspirin (Aspirin) 81 mg DAILY NGT Last administered on 07/27/18 08:42; Admin Dose 81 MG; Start 07/23/18 at 09:00 Enoxaparin Sodium (Lovenox) 30 mg DAILY SC Last administered on 07/26/18 12:33; Admin Dose 30 MG; Start 07/23/18 at 09:00 Albuterol/ Ipratropium (Duoneb) 3 ml Q6H RESP THERAPY HHN Last administered on 07/27/18 01:35; Admin Dose 3 ML; Start 07/24/18 at 02:00 Albuterol/ Ipratropium (Duoneb) 3 ml Q2H RESP THERAPY PRN HHN sob Last administered on 07/23/18at 21:00; Admin Dose 3 ML; Start 07/23/18 at 20:30 Furosemide (Lasix) 40 mg DAILY@0600 IV Last administered on 07/27/18at 06:06; Admin Dose 40 MG; Start 07/24/18 at 08:00 Lisinopril (Zestril) 5 mg BID PO Last administered on 07/27/18at 08:43; Admin Dose 5 MG; Start 07/24/18 at 14:30 Metoprolol Succinate (Toprol Xl) 25 mg DAILY PO Last administered on 07/27/18at 08:42; Admin Dose 25 MG; Start 07/25/18 at 09:00 Diagnostic Test (Pha) (Accu-Chek) 1 ea 02 XX ; Start 07/27/18 at 02:00 Insulin Glargine (Lantus) 25 units DAILY@0800 SC Last administered on 07/27/18at 08:45; Admin Dose 25 UNITS; Start 07/27/18 at 08:00 Insulin Aspart (Novolog Insulin Pen) 12 unit WITH MEALS SC Last administered on 07/27/18at 08:45; Admin Dose 12 UNIT; Start 07/26/18 at 11:30 Insulin Aspart (Novolog Insulin Pen) NOVOLOG *MODERATE* ALGORITHM WITH MEALS BEDTIME SC Last administered on 07/27/18at 08:46; Admin Dose 4 UNIT; Start 07/26/18 at 11:30 Nitroglycerin/ Dextrose 250 ml @ 1.5 mls/hr TITRATE IV ; Start 07/26/18 at 08:30 Miscellaneous Information 1 ea NOTE XX ; Start 07/26/18 at 08:30 Glucose (Glutose) 15 gm Q15M PRN PO DECREASED GLUCOSE; Start 07/26/18 at 08:30 Glucose (Glutose) 22.5 gm Q15M PRN PO DECREASED GLUCOSE; Start 07/26/18 at 08:30 Dextrose (D50w Syringe) 25 ml Q15M PRN IV DECREASED GLUCOSE; Start 07/26/18 at 08:30 Dextrose (D50w Syringe) 50 ml Q15M PRN IV DECREASED GLUCOSE; Start 07/26/18 at 08:30 Glucagon (Glucagen) 1 mg Q15M PRN IM DECREASED GLUCOSE; Start 07/26/18 at 08:30 Glucose (Glutose) 15 gm Q15M PRN BUCCAL DECREASED GLUCOSE; Start 07/26/18 at 08:30 Cefepime HCl 50 ml @ 100 mls/hr Q12 IVPB Last administered on 07/27/18at 08:43; Admin Dose 100 MLS/HR; Start 07/26/18 at 21:00 Doxycycline Hyclate (Vibramycin) 100 mg BID PO Last administered on 07/27/18at 08:42; Admin Dose 100 MG; Start 07/26/18 at 21:00 KARINA MADDOX MD Jul 27, 2018 09:11
--- NOTE | 2018-07-27 11:47 | CONS ---
Assessment/Plan Assessment/Plan Hospital Course (Demo Recall) No acute events overnight no fevers. Patient is sleeping looks comfortable. WBC today 12.1 H&H 13 and 38.9 platelets 214 neutrophils 81.6 BUN 22 creatinine 0.88 Antimicrobials: Cefepime, Doxycycline Microbiology: All cultures have been negative Indwelling: right IJ triple-lumen catheter with introducer Physical examination: Well-developed elderly man who is in no distress. Head atraumatic normocephalic. Sclera nonicteric. Buccal mucosa dry. Neck is supple, chest rise symmetrical, breath sounds diminished bases. Heart: S1-S2. Abdomen, distended, soft, bowel sounds present. Extremities with trace edema. Assessment: 1. Systemic inflammatory response syndrome with postoperative fevers, likely pulmonary source, possibly secondary to multiple lines, resolving 2. Multivessel coronary artery disease, status post CABG 3. Diabetes 4. Status post thymectomy 5. Acute kidney insufficiency 6. Pleural effusion, status post thoracentesis Plan: Remains stable, continue present care, antibiotics for couple more days, pending triple-lumen catheter discontinuation Consultation Date/Type/Reason Admit Date/Time Jul 11, 2018 at 04:15 Initial Consult Date 07/17/18 Type of Consult id Requesting Provider: VANIA LAMB MD Date/Time of Note DATE: 07/27/18 TIME: 11:46 Exam/Review of Systems Exam Vitals Vital Signs Date Temp Pulse Resp B/P (MAP) Pulse Ox O2 O2 Flow FiO2 Time Delivery Rate 07/27/18 83 22 154/74 100 Nasal 3.0 10:00 (100) Cannula 07/27/18 26 09:48 07/27/18 98.2 07:00 Intake and Output 07/26/18 07/26/18 07/27/18 1515:00 23:00 07:00 IntakeIntake Total 1066.33 ml 1180 ml 200 ml OutputOutput Total 1325 ml 200 ml 1600 ml BalanceBalance -258.67 ml 980 ml -1400 ml Results Result Diagram: 07/27/18 0500 07/27/18 0500 Results 24hrs Laboratory Tests Test 07/26/18 12:31 07/26/18 13:50 07/26/18 17:35 07/26/18 21:48 Bedside Glucose 212 174 114 Creatine Kinase 84 Creatine Kinase Index 0.8 Creatinine Kinase MB 0.65 (Mass) Troponin I 1.590 *H Test 07/27/18 05:00 07/27/18 08:40 White Blood Count 12.1 H Red Blood Count 4.52 L Hemoglobin 13.0 #L Hematocrit 38.9 L Mean Corpuscular Volume 86.1 Mean Corpuscular 28.8 L Hemoglobin Mean Corpuscular 33.4 Hemoglobin Concent Red Cell Distribution 13.0 Width Platelet Count 214 Mean Platelet Volume 9.7 Immature Granulocytes % 1.100 H Neutrophils % 81.6 H Lymphocytes % 8.9 L Monocytes % 7.5 Eosinophils % 0.7 Basophils % 0.2 Nucleated Red Blood 0.0 Cells % Immature Granulocytes # 0.130 H Neutrophils # 9.9 H Lymphocytes # 1.1 Monocytes # 0.9 Eosinophils # 0.1 Basophils # 0.0 Nucleated Red Blood 0.0 Cells # Sodium Level 141 Potassium Level 3.1 L Chloride Level 101 Carbon Dioxide Level 26 Anion Gap 14 H Blood Urea Nitrogen 22 H Creatinine 0.88 Est Glomerular Filtrat > 60 Rate mL/min Glucose Level 156 Calcium Level 8.6 Phosphorus Level 2.2 #L Magnesium Level 2.1 Bedside Glucose 188 Medications Medication Current Medications IV Flush (NS 3 ml) 3 ml PER PROTOCOL IV ; Start 07/11/18 at 05:30 Ondansetron HCl (Zofran Inj) 4 mg Q6H PRN IV NAUSEA/VOMITING Last administered on 07/24/18 21:16; Admin Dose 4 MG; Start 07/11/18 at 05:30 Nitroglycerin (Nitroglycerin (Sl Tab) 0.4 Mg) 1 tab Q5M PRN SL .CHEST PAIN Last administered on 07/26/18 08:58; Admin Dose 1 TAB; Start 07/11/18 at 05:30 Acetaminophen (Tylenol Tab) 650 mg Q6H PRN PO .PAIN 1-3 OR TEMP Last administered on 07/24/18 12:11; Admin Dose 650 MG; Start 07/11/18 at 05:30 Atorvastatin Calcium (Lipitor) 40 mg HS PO Last administered on 07/26/18 21:43; Admin Dose 40 MG; Start 07/11/18 at 21:00 Simethicone (Mylicon) 80 mg QID PRN GTB DISTENSION/GAS/BLOATING Last administered on 07/16/18 17:28; Admin Dose 80 MG; Start 07/13/18 at 12:30 Guaifenesin (Mucinex) 600 mg BID PO Last administered on 07/27/18 08:42; Admin Dose 600 MG; Start 07/15/18 at 10:30 Sodium Chloride (Deep Sea) 2 spray BID PRN NASAL congestion; Start 07/15/18 at 10:30 Potassium Chloride 50 ml @ 50 mls/hr SEE DIRECTION PRN IVPB K+ LEVEL Last administered on 07/21/18at 13:44; Admin Dose 50 MLS/HR; Start 07/20/18 at 23:30 Magnesium Sulfate/ Dextrose 100 ml @ 100 mls/hr PRN PRN IVPB PENDING LAB VALUE; Start 07/20/18 at 23:30 Midazolam HCl (Versed) 2 mg Q2H PRN IV AGITATION; Start 07/21/18 at 04:30 Acetaminophen (Tylenol Supp) 650 mg Q4H PRN MS MILD PAIN(1-3) OR TEMP>38C Last administered on 07/23/18 17:29; Admin Dose 650 MG; Start 07/21/18 at 04:30 Albumin Human 250 ml @ 500 mls/hr PRN PRN IV CVP< 8, OR SBP<90 Last administered on 07/22/18 21:42; Admin Dose 500 MLS/HR; Start 07/21/18 at 08:00 Acetaminophen (Tylenol Liquid) 650 mg Q6 PRN NGT MILD PAIN(1-3)OR ELEVATED TEMP Last administered on 07/23/18 06:10; Admin Dose 650 MG; Start 07/21/18 at 09:00 Pantoprazole (Protonix Iv) 40 mg DAILY@06 IV Last administered on 07/27/18 06:06; Admin Dose 40 MG; Start 07/22/18 at 06:00 Morphine Sulfate (morphine) 1 mg Q4 PRN IV PAIN LEVEL 1-5 Last administered on 07/26/18 17:46; Admin Dose 1 MG; Start 07/22/18 at 11:30 Morphine Sulfate (morphine) 2 mg Q4 PRN IV PAIN LEVEL 6-10 Last administered on 07/26/18 08:22; Admin Dose 2 MG; Start 07/22/18 at 11:30 Aspirin (Aspirin) 81 mg DAILY NGT Last administered on 07/27/18 08:42; Admin Dose 81 MG; Start 07/23/18 at 09:00 Enoxaparin Sodium (Lovenox) 30 mg DAILY SC Last administered on 07/26/18 12:33; Admin Dose 30 MG; Start 07/23/18 at 09:00 Albuterol/ Ipratropium (Duoneb) 3 ml Q6H RESP THERAPY HHN Last administered on 07/27/18 09:39; Admin Dose 3 ML; Start 07/24/18 at 02:00 Albuterol/ Ipratropium (Duoneb) 3 ml Q2H RESP THERAPY PRN HHN sob Last administered on 07/23/18 21:00; Admin Dose 3 ML; Start 07/23/18 at 20:30 Furosemide (Lasix) 40 mg DAILY@0600 IV Last administered on 07/27/18 06:06; Admin Dose 40 MG; Start 07/24/18 at 08:00 Lisinopril (Zestril) 5 mg BID PO Last administered on 07/27/18 08:43; Admin Dose 5 MG; Start 07/24/18 at 14:30 Metoprolol Succinate (Toprol Xl) 25 mg DAILY PO Last administered on 07/27/18 08:42; Admin Dose 25 MG; Start 07/25/18 at 09:00 Diagnostic Test (Pha) (Accu-Chek) 1 ea 02 XX ; Start 07/27/18 at 02:00 Insulin Glargine (Lantus) 25 units DAILY@0800 SC Last administered on 07/27/18 08:45; Admin Dose 25 UNITS; Start 07/27/18 at 08:00 Insulin Aspart (Novolog Insulin Pen) 12 unit WITH MEALS SC Last administered on 07/27/18 08:45; Admin Dose 12 UNIT; Start 07/26/18 at 11:30 Insulin Aspart (Novolog Insulin Pen) NOVOLOG *MODERATE* ALGORITHM WITH MEALS BEDTIME SC Last administered on 07/27/18 08:46; Admin Dose 4 UNIT; Start 07/26/18 at 11:30 Nitroglycerin/ Dextrose 250 ml @ 1.5 mls/hr TITRATE IV ; Start 07/26/18 at 08:30 Miscellaneous Information 1 ea NOTE XX ; Start 07/26/18 at 08:30 Glucose (Glutose) 15 gm Q15M PRN PO DECREASED GLUCOSE; Start 07/26/18 at 08:30 Glucose (Glutose) 22.5 gm Q15M PRN PO DECREASED GLUCOSE; Start 07/26/18 at 08:30 Dextrose (D50w Syringe) 25 ml Q15M PRN IV DECREASED GLUCOSE; Start 07/26/18 at 08:30 Dextrose (D50w Syringe) 50 ml Q15M PRN IV DECREASED GLUCOSE; Start 07/26/18 at 08:30 Glucagon (Glucagen) 1 mg Q15M PRN IM DECREASED GLUCOSE; Start 07/26/18 at 08:30 Glucose (Glutose) 15 gm Q15M PRN BUCCAL DECREASED GLUCOSE; Start 07/26/18 at 08:30 Cefepime HCl 50 ml @ 100 mls/hr Q12 IVPB Last administered on 07/27/18at 08:43; Admin Dose 100 MLS/HR; Start 07/26/18 at 21:00 Doxycycline Hyclate (Vibramycin) 100 mg BID PO Last administered on 07/27/18at 08:42; Admin Dose 100 MG; Start 07/26/18 at 21:00 KATHY LOU NP Jul 27, 2018 11:47
--- NOTE | 2018-07-27 14:27 | CONS ---
Consult Date/Type/Reason Admit Date/Time Jul 11, 2018 at 04:15 Initial Consult Date 07/17/18 Type of Consultation: CV Requesting Provider: VANIA LAMB MD Date/Time of Note DATE: 07/27/18 TIME: 14:25 Subjective Interventional cardiology follow-up progress note/critical care note Subjective: Discussed with the staff and physicians. Patient status post 3 v coronary artery bypass graft 07/20/2018. Patient oFF pressors now pt was extubated on 07/23 mild chest wall pain . no report of PND orthopnea Objective: General: no acute distress HEENT: NC/AT. pupils are equal. round. NECK: . no stridor. Chest: Status post sternotomy, status post chest tube removed now CV: RRR. systolic murmur; no gallop or rubs. PULM: no wheezing + rhonchi GI: SOFT, NT, ND, no rebound or guarding Extremity: trace B/L LE edema. no clubbing. neuro: awake and responds appropriately Psych: calm and pleasant rectal: deferred : normal Echocardiogram done 07/11/2018 which was personally reviewed shows: Normal left ventricular systolic function. Normal left ventricular cavity size. Sigmoid septum. Ejection fraction is visually estimated at 55 %. Tissue Doppler/Mitral Doppler indices are consistent with impaired relaxation (Stage I diastolic dysfunction). Mild mitral leaflet calcification. Mild mitral annular calcification. Trace mitral regurgitation. No significant aortic stenosis or insufficiency. Aortic cusps appear mildly calcified. Normal appearance of the tricuspid valve. Estimated peak PA systolic pressure 26 mmHg. There is trace tricuspid regurgitation. Objective Vitals Vital Signs Date Temp Pulse Resp B/P (MAP) Pulse Ox O2 O2 Flow FiO2 Time Delivery Rate 07/27/18 77 24 136/54 95 Nasal 3.0 13:00 (81) Cannula 07/27/18 98.4 12:00 07/27/18 26 09:48 Intake and Output 07/26/18 07/26/18 07/27/18 1515:00 23:00 07:00 IntakeIntake Total 1066.33 ml 1180 ml 200 ml OutputOutput Total 1325 ml 200 ml 1600 ml BalanceBalance -258.67 ml 980 ml -1400 ml Results/Medications Result Diagram: 07/27/18 0500 07/27/18 0500 Results 24 hrs Laboratory Tests Test 07/26/18 17:35 07/26/18 21:48 07/27/18 05:00 07/27/18 08:40 Bedside Glucose 174 114 188 White Blood Count 12.1 H Red Blood Count 4.52 L Hemoglobin 13.0 #L Hematocrit 38.9 L Mean Corpuscular Volume 86.1 Mean Corpuscular 28.8 L Hemoglobin Mean Corpuscular 33.4 Hemoglobin Concent Red Cell Distribution 13.0 Width Platelet Count 214 Mean Platelet Volume 9.7 Immature Granulocytes % 1.100 H Neutrophils % 81.6 H Lymphocytes % 8.9 L Monocytes % 7.5 Eosinophils % 0.7 Basophils % 0.2 Nucleated Red Blood 0.0 Cells % Immature Granulocytes # 0.130 H Neutrophils # 9.9 H Lymphocytes # 1.1 Monocytes # 0.9 Eosinophils # 0.1 Basophils # 0.0 Nucleated Red Blood 0.0 Cells # Sodium Level 141 Potassium Level 3.1 L Chloride Level 101 Carbon Dioxide Level 26 Anion Gap 14 H Blood Urea Nitrogen 22 H Creatinine 0.88 Est Glomerular Filtrat > 60 Rate mL/min Glucose Level 156 Calcium Level 8.6 Phosphorus Level 2.2 #L Magnesium Level 2.1 Test 07/27/18 13:13 Bedside Glucose 110 Medications Current Medications IV Flush (NS 3 ml) 3 ml PER PROTOCOL IV ; Start 07/11/18 at 05:30 Ondansetron HCl (Zofran Inj) 4 mg Q6H PRN IV NAUSEA/VOMITING Last administered on 07/24/18 21:16; Admin Dose 4 MG; Start 07/11/18 at 05:30 Nitroglycerin (Nitroglycerin (Sl Tab) 0.4 Mg) 1 tab Q5M PRN SL .CHEST PAIN Last administered on 07/26/18 08:58; Admin Dose 1 TAB; Start 07/11/18 at 05:30 Acetaminophen (Tylenol Tab) 650 mg Q6H PRN PO .PAIN 1-3 OR TEMP Last administered on 07/24/18 12:11; Admin Dose 650 MG; Start 07/11/18 at 05:30 Atorvastatin Calcium (Lipitor) 40 mg HS PO Last administered on 07/26/18 21:43; Admin Dose 40 MG; Start 07/11/18 at 21:00 Simethicone (Mylicon) 80 mg QID PRN GTB DISTENSION/GAS/BLOATING Last administered on 07/16/18 17:28; Admin Dose 80 MG; Start 07/13/18 at 12:30 Guaifenesin (Mucinex) 600 mg BID PO Last administered on 07/27/18 08:42; Admin Dose 600 MG; Start 07/15/18 at 10:30 Sodium Chloride (Deep Sea) 2 spray BID PRN NASAL congestion; Start 07/15/18 at 10:30 Potassium Chloride 50 ml @ 50 mls/hr SEE DIRECTION PRN IVPB K+ LEVEL Last administered on 07/21/18 13:44; Admin Dose 50 MLS/HR; Start 07/20/18 at 23:30 Magnesium Sulfate/ Dextrose 100 ml @ 100 mls/hr PRN PRN IVPB PENDING LAB VALUE; Start 07/20/18 at 23:30 Midazolam HCl (Versed) 2 mg Q2H PRN IV AGITATION; Start 07/21/18 at 04:30 Acetaminophen (Tylenol Supp) 650 mg Q4H PRN [place] MILD PAIN(1-3) OR TEMP>38C Last administered on 07/23/18 17:29; Admin Dose 650 MG; Start 07/21/18 at 04:30 Albumin Human 250 ml @ 500 mls/hr PRN PRN IV CVP< 8, OR SBP<90 Last administered on 07/22/18 21:42; Admin Dose 500 MLS/HR; Start 07/21/18 at 08:00 Acetaminophen (Tylenol Liquid) 650 mg Q6 PRN NGT MILD PAIN(1-3)OR ELEVATED TEMP Last administered on 07/23/18 06:10; Admin Dose 650 MG; Start 07/21/18 at 09:00 Pantoprazole (Protonix Iv) 40 mg DAILY@06 IV Last administered on 07/27/18 06:06; Admin Dose 40 MG; Start 07/22/18 at 06:00 Morphine Sulfate (morphine) 1 mg Q4 PRN IV PAIN LEVEL 1-5 Last administered on 07/26/18 17:46; Admin Dose 1 MG; Start 07/22/18 at 11:30 Morphine Sulfate (morphine) 2 mg Q4 PRN IV PAIN LEVEL 6-10 Last administered on 07/26/18 08:22; Admin Dose 2 MG; Start 07/22/18 at 11:30 Aspirin (Aspirin) 81 mg DAILY NGT Last administered on 07/27/18 08:42; Admin Dose 81 MG; Start 07/23/18 at 09:00 Enoxaparin Sodium (Lovenox) 30 mg DAILY SC Last administered on 07/26/18 12:33; Admin Dose 30 MG; Start 07/23/18 at 09:00 Albuterol/ Ipratropium (Duoneb) 3 ml Q6H RESP THERAPY HHN Last administered on 07/27/18 09:39; Admin Dose 3 ML; Start 07/24/18 at 02:00 Albuterol/ Ipratropium (Duoneb) 3 ml Q2H RESP THERAPY PRN HHN sob Last a dministered on 07/23/18 21:00; Admin Dose 3 ML; Start 07/23/18 at 20:30 Furosemide (Lasix) 40 mg DAILY@0600 IV Last administered on 07/27/18 06:06; Admin Dose 40 MG; Start 07/24/18 at 08:00 Lisinopril (Zestril) 5 mg BID PO Last administered on 07/27/18 08:43; Admin Dose 5 MG; Start 07/24/18 at 14:30 Metoprolol Succinate (Toprol Xl) 25 mg DAILY PO Last administered on 07/27/18 08:42; Admin Dose 25 MG; Start 07/25/18 at 09:00 Diagnostic Test (Pha) (Accu-Chek) 1 ea 02 XX ; Start 07/27/18 at 02:00 Insulin Glargine (Lantus) 25 units DAILY@0800 SC Last administered on 07/27/18 08:45; Admin Dose 25 UNITS; Start 07/27/18 at 08:00 Insulin Aspart (Novolog Insulin Pen) 12 unit WITH MEALS SC Last administered on 07/27/18 13:20; Admin Dose 12 UNIT; Start 07/26/18 at 11:30 Insulin Aspart (Novolog Insulin Pen) NOVOLOG *MODERATE* ALGORITHM WITH MEALS BEDTIME SC Last administered on 07/27/18 08:46; Admin Dose 4 UNIT; Start 07/26/18 at 11:30 Nitroglycerin/ Dextrose 250 ml @ 1.5 mls/hr TITRATE IV ; Start 07/26/18 at 08:30 Miscellaneous Information 1 ea NOTE XX ; Start 07/26/18 at 08:30 Glucose (Glutose) 15 gm Q15M PRN PO DECREASED GLUCOSE; Start 07/26/18 at 08:30 Glucose (Glutose) 22.5 gm Q15M PRN PO DECREASED GLUCOSE; Start 07/26/18 at 08:30 Dextrose (D50w Syringe) 25 ml Q15M PRN IV DECREASED GLUCOSE; Start 07/26/18 at 08:30 Dextrose (D50w Syringe) 50 ml Q15M PRN IV DECREASED GLUCOSE; Start 07/26/18 at 08:30 Glucagon (Glucagen) 1 mg Q15M PRN IM DECREASED GLUCOSE; Start 07/26/18 at 08:30 Glucose (Glutose) 15 gm Q15M PRN BUCCAL DECREASED GLUCOSE; Start 07/26/18 at 08:30 Cefepime HCl 50 ml @ 100 mls/hr Q12 IVPB Last administered on 07/27/18at 08:43; Admin Dose 100 MLS/HR; Start 07/26/18 at 21:00 Doxycycline Hyclate (Vibramycin) 100 mg BID PO Last administered on 07/27/18at 08:42; Admin Dose 100 MG; Start 07/26/18 at 21:00 Assessment/Plan Hospital Course (Demo Recall) 1. Unstable angina 2. Multivessel coronary artery disease 3. 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 Diabetes 5. History of hypertension 6. Anemia 7. Postop respiratory failure currently intubated 8. POST OP FEVER : improved Recommendations: Respiratory care will be continued managed as per pulm. inc lisinopril and toprol asa daily abx as per ID rec on PPI for GI prophylaxis Lovenox for DVT prophylaxis as well Thank you for his referral. We will continue to follow along with you. SEAN NOGUERA MD [facility] SEAN NOGUERA MD Jul 27, 2018 14:27
[2018-07-27] MEDS: morphine 2 MG INJ IV PRN (15:23)
--- NOTE | 2018-07-27 15:48 | PN ---
Date/Time of Note Date/Time of Note DATE: 07/27/18 TIME: 15:46 Assessment/Plan Lines/Catheters IV Catheter Type (from Nrsg): Saline Lock Roa in Place (from Nrsg): No Assessment/Plan Assessment/Plan Coronary artery disease Status post coronary artery bypass grafting Fever has Hemodynamically stable Chest pain We will advance diet ambulation Zickel therapy Subjective 24 Hr Interval Summary Constitutional: improved Pain Control: mild Exam/Review of Systems Vital Signs Vitals Vital Signs Date Temp Pulse Resp B/P (MAP) Pulse Ox O2 O2 Flow FiO2 Time Delivery Rate 07/27/18 94 26 98 Nasal 2.0 22 15:40 Cannula 07/27/18 136/54 13:00 (81) 07/27/18 98.4 12:00 Intake and Output 07/26/18 07/26/18 07/27/18 1515:00 23:00 07:00 IntakeIntake Total 1066.33 ml 1180 ml 200 ml OutputOutput Total 1325 ml 200 ml 1600 ml BalanceBalance -258.67 ml 980 ml -1400 ml Exam ENMT: nl external ears & nose, nl lips & teeth, nl nasal mucosa & septum, mucosa pink and moist Neck: supple, non-tender Respiratory: clear to auscultation, normal air movement Cardiovascular: regular rate and rhythm, nl pulses Gastrointestinal: soft, nl liver, spleen, non-tender Musculoskeletal: nl extremities to inspection, nl gait and stance Results Result Diagram: 07/27/18 0500 07/27/18 0500 VANIA LAMB MD Jul 27, 2018 15:48
[2018-07-27] MEDS ORDERED: ENALAPRILAT 1.25 MG INJ IV ONE (19:30)
[2018-07-27] MEDS: ATORVASTATIN 40 MG TAB PO SCH (21:24)
[2018-07-27] MEDS: LISINOPRIL 10 MG TAB PO SCH (21:25)
[2018-07-28] VITALS (11 sets, daily range): BP systolic 118–188; BP diastolic 56–87; PULSE 70–90; RESP 18–20
[2018-07-28] MEDS ORDERED: hydrALAzine 20 MG INJ IV PRN
[2018-07-28] MEDS: ONDANSETRON 4 MG INJ IV PRN (00:40)
[2018-07-28] MEDS: ALBUTEROL/IPRATROPIUM (NEB) 3 ML AMP HHN SCH ×4 (01:54→19:50)
[2018-07-28] MEDS: ACCU-CHEK XX SCH (02:05)
[2018-07-28] MEDS: PANTOPRAZOLE 40 MG INJ IV SCH (05:12)
[2018-07-28] MEDS: FUROSEMIDE 40 MG INJ IV SCH (05:14)
[2018-07-28] MEDS ORDERED: POTASSIUM CHLORIDE (SR) 20 MEQ TAB PO STA ×2 (07:58→11:50)
[2018-07-28] MEDS: INSULIN ASPART [NOVOLOG] 3 ML PEN SC SCH ×7 (08:00→20:43)
[2018-07-28] MEDS: ASPIRIN 81 MG TAB NGT SCH (08:14)
[2018-07-28] MEDS: METOPROLOL (XL) 50 MG TAB PO SCH (08:14)
[2018-07-28] MEDS: CEFEPIME 1GM/50 ML (PMX) 50 ML IVPB SCH (08:14)
[2018-07-28] MEDS: DOXYCYCLINE 100 MG TAB PO SCH (08:14)
[2018-07-28] MEDS: GUAIFENESIN LA 600 MG TABSR PO SCH ×2 (08:14→20:30)
[2018-07-28] MEDS: LISINOPRIL 10 MG TAB PO SCH ×2 (08:15→20:30)
--- NOTE | 2018-07-28 08:25 | PN ---
DATE: 07/28/2018 SUBJECTIVE: The patient is stable. The patient transferred from intensive care unit to telemetry. No other events noted. OBJECTIVE: VITAL SIGNS: Blood pressure is 145/69, pulse 71, respiration 18, temperature 98.2. HEENT: Head is normocephalic. NECK: Supple. HEART: Regular rate. LUNGS: Show diminished breath sounds at the base. ABDOMEN: Soft, nontender to palpation without rebound or guarding. EXTREMITIES: Negative for clubbing, cyanosis. Trace edema. DERMATOLOGIC: No rashes. MUSCULOSKELETAL: No joint effusion. NEUROLOGIC: No change in exam. MEDICATIONS: Reviewed. LABORATORY DATA: Shows sodium 140, potassium 3.1, BUN 22. BNP 4800. White count 13.2, hemoglobin 1 4.5, platelet count 281. ASSESSMENT AND PLAN: 1. Nonoliguric acute kidney injury. Previous baseline creatinine of 0.9 mg/dL. Etiology of acute k idney injury is secondary to hemodynamics. Renal function is improved. Continue current treatment p lans, supportive care, renally dose all meds. Continue to monitor closely on diuretic therapy. 2. Acute heart failure. The patient is clinically improving. Continue medical management. Continu e diuretic therapy. 3. Anemia. Monitor hemoglobin and hematocrit levels. 4. Mineral bone disorder. Monitor calcium and phosphorus levels. 5. Hypernatremia, improved. 6. Hypertension. Blood pressure remains elevated. We will adjust blood pressure medications. 7. Coronary artery disease status post coronary artery bypass graft. Continue medical management. Follow up with cardiology. 8. Status post cardiogenic shock. 9. Acute respiratory failure, improved. Continue to monitor. 10. Diabetes. Continue current insulin regimen. 11. Systemic inflammatory response syndrome. Continue medical management and follow up with primary team. The patient is completing antibiotic course. Dictated By: MARCO ANTONIO CANALES/DEYA Conf#: [id number] DID#: [id number]
[2018-07-28] MEDS: ENOXAPARIN 30 MG/0.3 ML SYG SC SCH (08:40)
[2018-07-28] MEDS: INSULIN GLARGINE [LANTus] (100 UNITS/ML) SYG SC SCH (08:40)
--- NOTE | 2018-07-28 08:54 | CONS ---
Assessment/Plan Assessment/Plan Assessment/Plan (Daily) Assessment and recommendations; 1. Patient admitted for acute IN status post CABG. 2. Underlying COPD. 3. Possibly low-grade sepsis, possibly catheter associated. Currently on appropriate antimicrobial regimen. Clinically improving. 4. History of diabetes and hypertension. 5. Prior history of thymectomy. Continue current supportive care. Antibiotics per ID recommendations. Consultation Date/Type/Reason Admit Date/Time Jul 11, 2018 at 04:15 Initial Consult Date 07/17/18 Type of Consult Pulmonary/critical care Patient's condition is stable overall. Complains of cough with very scant sputum production. Denies any chest pain, wheezing. General exam; elderly male, awake alert, currently no distress. Requesting Provider: VANIA LAMB MD Date/Time of Note DATE: 07/28/18 TIME: 08:52 24 HR Interval Summary Free Text/Dictation Patient's condition is stable. Has been transferred out of ICU to telemetry unit. Complains of very minimal cough. Denies any chest pain, sputum production hemoptysis. Any fever or chills. General exam; elderly male, awake alert, currently no distress. Exam/Review of Systems Exam Vitals Vital Signs Date Temp Pulse Resp B/P (MAP) Pulse Ox O2 O2 Flow FiO2 Time Delivery Rate 07/28/18 98.2 71 18 145/69 91 07:12 (94) 07/28/18 Nasal 2.0 02:13 Cannula 07/28/18 27 01:54 Intake and Output 07/27/18 07/27/18 07/28/18 1414:59 22:59 06:59 IntakeIntake Total 830 ml 300 ml OutputOutput Total 1825 ml BalanceBalance -995 ml 300 ml Exam HEENT exam; supple neck, no JVD. No lymphadenopathy. Midline trachea. No thyromegaly. No neck masses. Chest exam; diminished but clear breath sounds. S1-S2 audible, no murmurs. Regular rhythm. Dressing applied over the sternum. Abdomen exam; soft, nontender. No organomegaly. Bowel sounds audible. Extremity exam; no peripheral edema clubbing. INTEGRATIVE MEDICINE PHYSICIAN exam; no focal deficit. Results Result Diagram: 07/28/18 0458 07/28/18 0458 Results 24hrs Laboratory Tests Test 07/27/18 13:13 07/27/18 17:38 07/27/18 20:59 07/28/18 01:20 Bedside Glucose 110 93 122 158 Test 07/28/18 04:58 07/28/18 07:26 07/28/18 08:04 White Blood Count 13.2 H Red Blood Count 5.05 Hemoglobin 14.5 Hematocrit 42.4 Mean Corpuscular 84.0 Volume Mean Corpuscular 28.7 L Hemoglobin Mean Corpuscular 34.2 Hemoglobin Concent Red Cell 13.2 Distribution Width Platelet Count 281 # Mean Platelet 9.2 Volume Immature 1.100 H Granulocytes % Neutrophils % 82.3 H Lymphocytes % 8.8 L Monocytes % 7.1 Eosinophils % 0.5 Basophils % 0.2 Nucleated Red Blood 0.0 Cells % Immature 0.140 H Granulocytes # Neutrophils # 10.8 H Lymphocytes # 1.2 Monocytes # 0.9 Eosinophils # 0.1 Basophils # 0.0 Nucleated Red Blood 0.0 Cells # Sodium Level 140 Potassium Level 3.1 L Chloride Level 99 Carbon Dioxide 30 Level Anion Gap 11 Blood Urea Nitrogen 22 H Creatinine 0.86 Est Glomerular > 60 Filtrat Rate mL/min Glucose Level 154 Calcium Level 9.0 Phosphorus Level 2.8 Magnesium Level 1.9 Total Bilirubin 2.8 H Direct Bilirubin 0.70 H Indirect Bilirubin 2.1 H Aspartate Amino 151 H Transf (AST/SGOT) Alanine 229 H Aminotransferase (A LT/SGPT) Alkaline 211 H Phosphatase B-Type Natriuretic 4810 H Peptide Total Protein 7.2 Albumin 3.5 Globulin 3.70 H Albumin/Globulin 0.94 Ratio Lab Scanned Report BLOOD TRANSFUSION Bedside Glucose 138 Medications Medication Current Medications IV Flush (NS 3 ml) 3 ml PER PROTOCOL IV ; Start 07/11/18 at 05:30 Ondansetron HCl (Zofran Inj) 4 mg Q6H PRN IV NAUSEA/VOMITING Last administered on 07/28/18at 00:40; Admin Dose 4 MG; Start 07/11/18 at 05:30 Nitroglycerin (Nitroglycerin (Sl Tab) 0.4 Mg) 1 tab Q5M PRN SL .CHEST PAIN Last administered on 07/26/18at 08:58; Admin Dose 1 TAB; Start 07/11/18 at 05:30 Acetaminophen (Tylenol Tab) 650 mg Q6H PRN PO .PAIN 1-3 OR TEMP Last administered on 3/1/19at 12:11; Admin Dose 650 MG; Start 07/11/18 at 05:30 Atorvastatin Calcium (Lipitor) 40 mg HS PO Last administered on 07/27/18 21:24; Admin Dose 40 MG; Start 07/11/18 at 21:00 Simethicone (Mylicon) 80 mg QID PRN GTB DISTENSION/GAS/BLOATING Last administered on 07/27/18 15:23; Admin Dose 80 MG; Start 07/13/18 at 12:30 Guaifenesin (Mucinex) 600 mg BID PO Last administered on 07/28/18 08:14; Admin Dose 600 MG; Start 07/15/18 at 10:30 Sodium Chloride (Deep Sea) 2 spray BID PRN NASAL congestion; Start 07/15/18 at 10:30 Potassium Chloride 50 ml @ 50 mls/hr SEE DIRECTION PRN IVPB K+ LEVEL Last administered on 07/21/18 13:44; Admin Dose 50 MLS/HR; Start 07/20/18 at 23:30 Magnesium Sulfate/ Dextrose 100 ml @ 100 mls/hr PRN PRN IVPB PENDING LAB VALUE; Start 07/20/18 at 23:30 Midazolam HCl (Versed) 2 mg Q2H PRN IV AGITATION; Start 07/21/18 at 04:30 Acetaminophen (Tylenol Supp) 650 mg Q4H PRN [place] MILD PAIN(1-3) OR TEMP>38C Last administered on 07/23/18 17:29; Admin Dose 650 MG; Start 07/21/18 at 04:30 Albumin Human 250 ml @ 500 mls/hr PRN PRN IV CVP< 8, OR SBP<90 Last administered on 07/22/18 21:42; Admin Dose 500 MLS/HR; Start 07/21/18 at 08:00 Acetaminophen (Tylenol Liquid) 650 mg Q6 PRN NGT MILD PAIN(1-3)OR ELEVATED TEMP Last administered on 07/23/18 06:10; Admin Dose 650 MG; Start 07/21/18 at 09:00 Pantoprazole (Protonix Iv) 40 mg DAILY@06 IV Last administered on 07/28/18 05:12; Admin Dose 40 MG; Start 07/22/18 at 06:00 Morphine Sulfate (morphine) 1 mg Q4 PRN IV PAIN LEVEL 1-5 Last administered on 07/27/18 15:23; Admin Dose 1 MG; Start 07/22/18 at 11:30 Morphine Sulfate (morphine) 2 mg Q4 PRN IV PAIN LEVEL 6-10 Last administered on 07/26/18 08:22; Admin Dose 2 MG; Start 07/22/18 at 11:30 Aspirin (Aspirin) 81 mg DAILY NGT Last administered on 07/28/18 08:14; Admin Dose 81 MG; Start 07/23/18 at 09:00 Enoxaparin Sodium (Lovenox) 30 mg DAILY SC Last administered on 07/28/18 08:40; Admin Dose 30 MG; Start 07/23/18 at 09:00 Albuterol/ Ipratropium (Duoneb) 3 ml Q6H RESP THERAPY HHN Last administered on 07/28/18 01:54; Admin Dose 3 ML; Start 07/24/18 at 02:00 Albuterol/ Ipratropium (Duoneb) 3 ml Q2H RESP THERAPY PRN HHN sob Last administered on 07/23/18 21:00; Admin Dose 3 ML; Start 07/23/18 at 20:30 Furosemide (Lasix) 40 mg DAILY@0600 IV Last administered on 07/28/18 05:14; Admin Dose 40 MG; Start 07/24/18 at 08:00 Diagnostic Test (Pha) (Accu-Chek) 1 ea 02 XX Last administered on 07/28/18 02:05; Admin Dose 1 EA; Start 07/27/18 at 02:00 Insulin Glargine (Lantus) 25 units DAILY@0800 SC Last administered on 07/28/18 08:40; Admin Dose 25 UNITS; Start 07/27/18 at 08:00 Insulin Aspart (Novolog Insulin Pen) 12 unit WITH MEALS SC Last administered on 07/28/18 08:40; Admin Dose 12 UNIT; Start 07/26/18 at 11:30 Insulin Aspart (Novolog Insulin Pen) NOVOLOG *MODERATE* ALGORITHM WITH MEALS BEDTIME SC Last administered on 07/27/18 08:46; Admin Dose 4 UNIT; Start 07/26/18 at 11:30 Nitroglycerin/ Dextrose 250 ml @ 1.5 mls/hr TITRATE IV ; Start 07/26/18 at 08:30 Miscellaneous Information 1 ea NOTE XX ; Start 07/26/18 at 08:30 Glucose (Glutose) 15 gm Q15M PRN PO DECREASED GLUCOSE; Start 07/26/18 at 08:30 Glucose (Glutose) 22.5 gm Q15M PRN PO DECREASED GLUCOSE; Start 07/26/18 at 08:30 Dextrose (D50w Syringe) 25 ml Q15M PRN IV DECREASED GLUCOSE; Start 07/26/18 at 08:30 Dextrose (D50w Syringe) 50 ml Q15M PRN IV DECREASED GLUCOSE; Start 07/26/18 at 08:30 Glucagon (Glucagen) 1 mg Q15M PRN IM DECREASED GLUCOSE; Start 07/26/18 at 08:30 Glucose (Glutose) 15 gm Q15M PRN BUCCAL DECREASED GLUCOSE; Start 07/26/18 at 08:30 Cefepime HCl 50 ml @ 100 mls/hr Q12 IVPB Last administered on 07/28/18at 08:14; Admin Dose 100 MLS/HR; Start 07/26/18 at 21:00 Doxycycline Hyclate (Vibramycin) 100 mg BID PO Last administered on 07/28/18at 08:14; Admin Dose 100 MG; Start 07/26/18 at 21:00 Lisinopril (Zestril) 10 mg BID PO Last administered on 07/28/18at 08:15; Admin Dose 10 MG; Start 07/27/18 at 21:00 Metoprolol Succinate (Toprol Xl) 50 mg DAILY PO Last administered on 07/28/18at 08:14; Admin Dose 50 MG; Start 07/28/18 at 09:00 Hydralazine HCl (Apresoline) 10 mg Q4H PRN IV ELEVATED BLOOD PRESSURE Last administered on 07/27/18at 23:51; Admin Dose 10 MG; Start 07/28/18 at 00:00 KRANTHI VERA Jul 28, 2018 08:54
--- NOTE | 2018-07-28 09:01 | PN ---
Date/Time of Note Date/Time of Note DATE: 07/28/18 TIME: 09:01 Assessment/Plan VTE Prophylaxis Risk score (from Ns)>0 risk: 3 SCD applied (from Ns): Yes Pharmacological prophylaxis: heparin Lines/Catheters IV Catheter Type (from Nrs): Peripheral IV Urinary Cath still in place: No Assessment/Plan Assessment/Plan 1. CAD with unstable angina s/p 3V CABG 07/20/18 - Patient doing well without any chest pain episodes - CT surgery on board and appreciate consultation - Cardiology on board and medication adjustments made today. Appreciate recommendations 2. acute hypoxic resp distress - resolved 3. HTN - continue current medications 4. Leukocytosis - ID on board and appreciate recommendations. d/c antibiotics - WBC trending down - cultures negative for acute bacterial infection 5. Uncontrolled diabetes - A1c at OSH noted to be 12.3 - Diabetic education consultation appreciated - Lantus and Novolog on board and sugars well controlled - Upon d/c will give Metformin/Jardiance, Basaglar and Novolog- per DM educator recommendation 6. Hypertension - Continue current medications 7. Disposition - Continue ST evaluation to advance diet - PT on board for d/c planning - continue monitoring BP and adjust medications as needed Result Diagram: 07/28/18 0458 07/28/18 0458 Results 24hrs Laboratory Tests Test 07/27/18 13:13 07/27/18 17:38 07/27/18 20:59 07/28/18 01:20 Bedside Glucose 110 93 122 158 Test 07/28/18 04:58 07/28/18 07:26 07/28/18 08:04 White Blood Count 13.2 H Red Blood Count 5.05 Hemoglobin 14.5 Hematocrit 42.4 Mean Corpuscular 84.0 Volume Mean Corpuscular 28.7 L Hemoglobin Mean Corpuscular 34.2 Hemoglobin Concent Red Cell 13.2 Distribution Width Platelet Count 281 # Mean Platelet 9.2 Volume Immature 1.100 H Granulocytes % Neutrophils % 82.3 H Lymphocytes % 8.8 L Monocytes % 7.1 Eosinophils % 0.5 Basophils % 0.2 Nucleated Red Blood 0.0 Cells % Immature 0.140 H Granulocytes # Neutrophils # 10.8 H Lymphocytes # 1.2 Monocytes # 0.9 Eosinophils # 0.1 Basophils # 0.0 Nucleated Red Blood 0.0 Cells # Sodium Level 140 Potassium Level 3.1 L Chloride Level 99 Carbon Dioxide 30 Level Anion Gap 11 Blood Urea Nitrogen 22 H Creatinine 0.86 Est Glomerular > 60 Filtrat Rate mL/min Glucose Level 154 Calcium Level 9.0 Phosphorus Level 2.8 Magnesium Level 1.9 Total Bilirubin 2.8 H Direct Bilirubin 0.70 H Indirect Bilirubin 2.1 H Aspartate Amino 151 H Transf (AST/SGOT) Alanine 229 H Aminotransferase (A LT/SGPT) Alkaline 211 H Phosphatase B-Type Natriuretic 4810 H Peptide Total Protein 7.2 Albumin 3.5 Globulin 3.70 H Albumin/Globulin 0.94 Ratio Lab Scanned Report BLOOD TRANSFUSION Bedside Glucose 138 Subjective 24 Hr Interval Summary Free Text/Dictation Patient doing well and has no new complaints. No overnight events. Exam/Review of Systems Exam Vitals Vital Signs Date Temp Pulse Resp B/P (MAP) Pulse Ox O2 O2 Flow FiO2 Time Delivery Rate 07/28/18 75 08:01 07/28/18 98.2 18 145/69 91 07:12 (94) 07/28/18 Nasal 2.0 02:13 Cannula 07/28/18 27 01:54 Intake and Output 07/27/18 07/27/18 07/28/18 1515:00 23:00 07:00 IntakeIntake Total 830 ml 300 ml OutputOutput Total 1575 ml BalanceBalance -745 ml 300 ml Exam General: Patient is laying in bed, answers questions Neck: Supple Chest: sternal dressing in place. no discharge or drainage Respiratory: Clear to auscultation bilaterally. no wheezing Cardiovascular: regular rate and rhythm, no obvious murmurs Gastrointestinal: soft, non-tender to palpation, bowel sounds heard. no rebound or guarding Neurological: Moves all extremities spontaneously Results Results 24hrs Laboratory Tests Test 07/27/18 13:13 07/27/18 17:38 07/27/18 20:59 07/28/18 01:20 Bedside Glucose 110 93 122 158 Test 07/28/18 04:58 07/28/18 07:26 07/28/18 08:04 White Blood Count 13.2 H Red Blood Count 5.05 Hemoglobin 14.5 Hematocrit 42.4 Mean Corpuscular 84.0 Volume Mean Corpuscular 28.7 L Hemoglobin Mean Corpuscular 34.2 Hemoglobin Concent Red Cell 13.2 Distribution Width Platelet Count 281 # Mean Platelet 9.2 Volume Immature 1.100 H Granulocytes % Neutrophils % 82.3 H Lymphocytes % 8.8 L Monocytes % 7.1 Eosinophils % 0.5 Basophils % 0.2 Nucleated Red Blood 0.0 Cells % Immature 0.140 H Granulocytes # Neutrophils # 10.8 H Lymphocytes # 1.2 Monocytes # 0.9 Eosinophils # 0.1 Basophils # 0.0 Nucleated Red Blood 0.0 Cells # Sodium Level 140 Potassium Level 3.1 L Chloride Level 99 Carbon Dioxide 30 Level Anion Gap 11 Blood Urea Nitrogen 22 H Creatinine 0.86 Est Glomerular > 60 Filtrat Rate mL/min Glucose Level 154 Calcium Level 9.0 Phosphorus Level 2.8 Magnesium Level 1.9 Total Bilirubin 2.8 H Direct Bilirubin 0.70 H Indirect Bilirubin 2.1 H Aspartate Amino 151 H Transf (AST/SGOT) Alanine 229 H Aminotransferase (A LT/SGPT) Alkaline 211 H Phosphatase B-Type Natriuretic 4810 H Peptide Total Protein 7.2 Albumin 3.5 Globulin 3.70 H Albumin/Globulin 0.94 Ratio Lab Scanned Report BLOOD TRANSFUSION Bedside Glucose 138 Medications Medication Current Medications IV Flush (NS 3 ml) 3 ml PER PROTOCOL IV ; Start 07/11/18 at 05:30 Ondansetron HCl (Zofran Inj) 4 mg Q6H PRN IV NAUSEA/VOMITING Last administered on 07/28/18 00:40; Admin Dose 4 MG; Start 07/11/18 at 05:30 Nitroglycerin (Nitroglycerin (Sl Tab) 0.4 Mg) 1 tab Q5M PRN SL .CHEST PAIN Last administered on 07/26/18 08:58; Admin Dose 1 TAB; Start 07/11/18 at 05:30 Acetaminophen (Tylenol Tab) 650 mg Q6H PRN PO .PAIN 1-3 OR TEMP Last administered on 07/24/18 12:11; Admin Dose 650 MG; Start 07/11/18 at 05:30 Atorvastatin Calcium (Lipitor) 40 mg HS PO Last administered on 07/27/18 21:24; Admin Dose 40 MG; Start 07/11/18 at 21:00 Simethicone (Mylicon) 80 mg QID PRN GTB DISTENSION/GAS/BLOATING Last administered on 07/27/18 15:23; Admin Dose 80 MG; Start 07/13/18 at 12:30 Guaifenesin (Mucinex) 600 mg BID PO Last administered on 07/28/18 08:14; Admin Dose 600 MG; Start 07/15/18 at 10:30 Sodium Chloride (Deep Sea) 2 spray BID PRN NASAL congestion; Start 07/15/18 at 10:30 Potassium Chloride 50 ml @ 50 mls/hr SEE DIRECTION PRN IVPB K+ LEVEL Last administered on 07/21/18at 13:44; Admin Dose 50 MLS/HR; Start 07/20/18 at 23:30 Magnesium Sulfate/ Dextrose 100 ml @ 100 mls/hr PRN PRN IVPB PENDING LAB VALUE; Start 07/20/18 at 23:30 Midazolam HCl (Versed) 2 mg Q2H PRN IV AGITATION; Start 07/21/18 at 04:30 Acetaminophen (Tylenol Supp) 650 mg Q4H PRN [place] MILD PAIN(1-3) OR TEMP>38C Last administered on 07/23/18 17:29; Admin Dose 650 MG; Start 07/21/18 at 04:30 Albumin Human 250 ml @ 500 mls/hr PRN PRN IV CVP< 8, OR SBP<90 Last administered on 07/22/18 21:42; Admin Dose 500 MLS/HR; Start 07/21/18 at 08:00 Acetaminophen (Tylenol Liquid) 650 mg Q6 PRN N[place] MILD PAIN(1-3)OR ELEVATED TEMP Last administered on 07/23/18 06:10; Admin Dose 650 MG; Start 07/21/18 at 09:00 Pantoprazole (Protonix Iv) 40 mg DAILY@06 IV Last administered on 07/28/18 05:12; Admin Dose 40 MG; Start 07/22/18 at 06:00 Morphine Sulfate (morphine) 1 mg Q4 PRN IV PAIN LEVEL 1-5 Last administered on 07/27/18 15:23; Admin Dose 1 MG; Start 07/22/18 at 11:30 Morphine Sulfate (morphine) 2 mg Q4 PRN IV PAIN LEVEL 6-10 Last administered on 07/26/18 08:22; Admin Dose 2 MG; Start 07/22/18 at 11:30 Aspirin (Aspirin) 81 mg DAILY NGT Last administered on 07/28/18 08:14; Admin Dose 81 MG; Start 07/23/18 at 09:00 Enoxaparin Sodium (Lovenox) 30 mg DAILY SC Last administered on 07/28/18 08:40; Admin Dose 30 MG; Start 07/23/18 at 09:00 Albuterol/ Ipratropium (Duoneb) 3 ml Q6H RESP THERAPY HHN Last administered on 07/28/18at 01:54; Admin Dose 3 ML; Start 07/24/18 at 02:00 Albuterol/ Ipratropium (Duoneb) 3 ml Q2H RESP THERAPY PRN HHN sob Last administered on 07/23/18at 21:00; Admin Dose 3 ML; Start 07/23/18 at 20:30 Furosemide (Lasix) 40 mg DAILY@0600 IV Last administered on 07/28/18 05:14; Admin Dose 40 MG; Start 07/24/18 at 08:00 Diagnostic Test (Pha) (Accu-Chek) 1 ea 02 XX Last administered on 07/28/18 02:05; Admin Dose 1 EA; Start 07/27/18 at 02:00 Insulin Glargine (Lantus) 25 units DAILY@0800 SC Last administered on 07/28/18 08:40; Admin Dose 25 UNITS; Start 07/27/18 at 08:00 Insulin Aspart (Novolog Insulin Pen) 12 unit WITH MEALS SC Last administered on 07/28/18 08:40; Admin Dose 12 UNIT; Start 07/26/18 at 11:30 Insulin Aspart (Novolog Insulin Pen) NOVOLOG *MODERATE* ALGORITHM WITH MEALS BEDTIME SC Last administered on 07/27/18 08:46; Admin Dose 4 UNIT; Start 07/26/18 at 11:30 Nitroglycerin/ Dextrose 250 ml @ 1.5 mls/hr TITRATE IV ; Start 07/26/18 at 08:30 Miscellaneous Information 1 ea NOTE XX ; Start 07/26/18 at 08:30 Glucose (Glutose) 15 gm Q15M PRN PO DECREASED GLUCOSE; Start 07/26/18 at 08:30 Glucose (Glutose) 22.5 gm Q15M PRN PO DECREASED GLUCOSE; Start 07/26/18 at 08:30 Dextrose (D50w Syringe) 25 ml Q15M PRN IV DECREASED GLUCOSE; Start 07/26/18 at 08:30 Dextrose (D50w Syringe) 50 ml Q15M PRN IV DECREASED GLUCOSE; Start 07/26/18 at 08:30 Glucagon (Glucagen) 1 mg Q15M PRN IM DECREASED GLUCOSE; Start 07/26/18 at 08:30 Glucose (Glutose) 15 gm Q15M PRN BUCCAL DECREASED GLUCOSE; Start 07/26/18 at 08:30 Cefepime HCl 50 ml @ 100 mls/hr Q12 IVPB Last administered on 07/28/18at 08:14; Admin Dose 100 MLS/HR; Start 07/26/18 at 21:00 Doxycycline Hyclate (Vibramycin) 100 mg BID PO Last administered on 07/28/18at 08:14; Admin Dose 100 MG; Start 07/26/18 at 21:00 Lisinopril (Zestril) 10 mg BID PO Last administered on 07/28/18at 08:15; Admin Dose 10 MG; Start 07/27/18 at 21:00 Metoprolol Succinate (Toprol Xl) 50 mg DAILY PO Last administered on 07/28/18at 08:14; Admin Dose 50 MG; Start 07/28/18 at 09:00 Hydralazine HCl (Apresoline) 10 mg Q4H PRN IV ELEVATED BLOOD PRESSURE Last administered on 07/27/18at 23:51; Admin Dose 10 MG; Start 07/28/18 at 00:00 KARINA MADDOX MD Jul 28, 2018 09:01
--- NOTE | 2018-07-28 11:53 | CONS ---
Consult Date/Type/Reason Admit Date/Time Jul 11, 2018 at 04:15 Initial Consult Date 07/17/18 Type of Consultation: CV Requesting Provider: VANIA LAMB MD Date/Time of Note DATE: 07/28/18 TIME: 11:52 Subjective Interventional cardiology follow-up progress note Subjective: Discussed with the staff and physicians. Patient status post 3 v coronary artery bypass graft 07/20/2018. Patient on tele now pt was extubated on 07/23 mild chest wall pain . no report of PND orthopnea Objective: General: no acute distress HEENT: NC/AT. pupils are equal. round. NECK: . no stridor. Chest: Status post sternotomy, status post chest tube removed now CV: RRR. systolic murmur; no gallop or rubs. PULM: no wheezing + rhonchi GI: SOFT, NT, ND, no rebound or guarding Extremity: trace B/L LE edema. no clubbing. neuro: awake and responds appropriately Psych: calm and pleasant rectal: deferred : normal Echocardiogram done 07/11/2018 which was personally reviewed shows: Normal left ventricular systolic function. Normal left ventricular cavity size. Sigmoid septum. Ejection fraction is visually estimated at 55 %. Tissue Doppler/Mitral Doppler indices are consistent with impaired relaxation (Stage I diastolic dysfunction). Mild mitral leaflet calcification. Mild mitral annular calcification. Trace mitral regurgitation. No significant aortic stenosis or insufficiency. Aortic cusps appear mildly calcified. Normal appearance of the tricuspid valve. Estimated peak PA systolic pressure 26 mmHg. There is trace tricuspid regurgitation. Objective Vitals Vital Signs Date Temp Pulse Resp B/P (MAP) Pulse Ox O2 O2 Flow FiO2 Time Delivery Rate 07/28/18 98.6 71 20 139/67 97 11:45 (91) 07/28/18 2.0 09:11 07/28/18 Nasal 09:10 Cannula 07/28/18 27 01:54 Intake and Output 07/27/18 07/27/18 07/28/18 1515:00 23:00 07:00 IntakeIntake Total 830 ml 300 ml OutputOutput Total 1575 ml BalanceBalance -745 ml 300 ml Results/Medications Result Diagram: 07/28/18 0458 07/28/18 0458 Results 24 hrs Laboratory Tests Test 07/27/18 13:13 07/27/18 17:38 07/27/18 20:59 07/28/18 01:20 Bedside Glucose 110 93 122 158 Test 07/28/18 04:58 07/28/18 07:26 07/28/18 08:04 White Blood Count 13.2 H Red Blood Count 5.05 Hemoglobin 14.5 Hematocrit 42.4 Mean Corpuscular 84.0 Volume Mean Corpuscular 28.7 L Hemoglobin Mean Corpuscular 34.2 Hemoglobin Concent Red Cell 13.2 Distribution Width Platelet Count 281 # Mean Platelet 9.2 Volume Immature 1.100 H Granulocytes % Neutrophils % 82.3 H Lymphocytes % 8.8 L Monocytes % 7.1 Eosinophils % 0.5 Basophils % 0.2 Nucleated Red Blood 0.0 Cells % Immature 0.140 H Granulocytes # Neutrophils # 10.8 H Lymphocytes # 1.2 Monocytes # 0.9 Eosinophils # 0.1 Basophils # 0.0 Nucleated Red Blood 0.0 Cells # Sodium Level 140 Potassium Level 3.1 L Chloride Level 99 Carbon Dioxide 30 Level Anion Gap 11 Blood Urea Nitrogen 22 H Creatinine 0.86 Est Glomerular > 60 Filtrat Rate mL/min Glucose Level 154 Calcium Level 9.0 Phosphorus Level 2.8 Magnesium Level 1.9 Total Bilirubin 2.8 H Direct Bilirubin 0.70 H Indirect Bilirubin 2.1 H Aspartate Amino 151 H Transf (AST/SGOT) Alanine 229 H Aminotransferase (A LT/SGPT) Alkaline 211 H Phosphatase B-Type Natriuretic 4810 H Peptide Total Protein 7.2 Albumin 3.5 Globulin 3.70 H Albumin/Globulin 0.94 Ratio Lab Scanned Report BLOOD TRANSFUSION Bedside Glucose 138 Medications Current Medications IV Flush (NS 3 ml) 3 ml PER PROTOCOL IV ; Start 07/11/18 at 05:30 Ondansetron HCl (Zofran Inj) 4 mg Q6H PRN IV NAUSEA/VOMITING Last administered on 07/28/18 00:40; Admin Dose 4 MG; Start 07/11/18 at 05:30 Nitroglycerin (Nitroglycerin (Sl Tab) 0.4 Mg) 1 tab Q5M PRN SL .CHEST PAIN Last administered on 07/26/18 08:58; Admin Dose 1 TAB; Start 07/11/18 at 05:30 Acetaminophen (Tylenol Tab) 650 mg Q6H PRN PO .PAIN 1-3 OR TEMP Last administered on 07/24/18 12:11; Admin Dose 650 MG; Start 07/11/18 at 05:30 Atorvastatin Calcium (Lipitor) 40 mg HS PO Last administered on 07/27/18 21:24; Admin Dose 40 MG; Start 07/11/18 at 21:00 Simethicone (Mylicon) 80 mg QID PRN GTB DISTENSION/GAS/BLOATING Last administered on 07/27/18 15:23; Admin Dose 80 MG; Start 07/13/18 at 12:30 Guaifenesin (Mucinex) 600 mg BID PO Last administered on 07/28/18 08:14; Admin Dose 600 MG; Start 07/15/18 at 10:30 Sodium Chloride (Deep Sea) 2 spray BID PRN NASAL congestion; Start 07/15/18 at 10:30 Potassium Chloride 50 ml @ 50 mls/hr SEE DIRECTION PRN IVPB K+ LEVEL Last administered on 07/21/18 13:44; Admin Dose 50 MLS/HR; Start 07/20/18 at 23:30 Magnesium Sulfate/ Dextrose 100 ml @ 100 mls/hr PRN PRN IVPB PENDING LAB VALUE; Start 07/20/18 at 23:30 Midazolam HCl (Versed) 2 mg Q2H PRN IV AGITATION; Start 07/21/18 at 04:30 Acetaminophen (Tylenol Supp) 650 mg Q4H PRN [place] MILD PAIN(1-3) OR TEMP>38C Last administered on 07/23/18 17:29; Admin Dose 650 MG; Start 07/21/18 at 04:30 Albumin Human 250 ml @ 500 mls/hr PRN PRN IV CVP< 8, OR SBP<90 Last administered on 07/22/18 21:42; Admin Dose 500 MLS/HR; Start 07/21/18 at 08:00 Acetaminophen (Tylenol Liquid) 650 mg Q6 PRN N[place] MILD PAIN(1-3)OR ELEVATED TEMP Last administered on 07/23/18 06:10; Admin Dose 650 MG; Start 07/21/18 at 09:00 Pantoprazole (Protonix Iv) 40 mg DAILY@06 IV Last administered on 07/28/18 05:12; Admin Dose 40 MG; Start 07/22/18 at 06:00 Morphine Sulfate (morphine) 1 mg Q4 PRN IV PAIN LEVEL 1-5 Last administered on 07/27/18 15:23; Admin Dose 1 MG; Start 07/22/18 at 11:30 Morphine Sulfate (morphine) 2 mg Q4 PRN IV PAIN LEVEL 6-10 Last administered on 07/26/18 08:22; Admin Dose 2 MG; Start 07/22/18 at 11:30 Aspirin (Aspirin) 81 mg DAILY NGT Last administered on 07/28/18 08:14; Admin Dose 81 MG; Start 07/23/18 at 09:00 Enoxaparin Sodium (Lovenox) 30 mg DAILY SC Last administered on 07/28/18 08:40; Admin Dose 30 MG; Start 07/23/18 at 09:00 Albuterol/ Ipratropium (Duoneb) 3 ml Q6H RESP THERAPY HHN Last administered on 07/28/18 09:02; Admin Dose 3 ML; Start 07/24/18 at 02:00 Albuterol/ Ipratropium (Duoneb) 3 ml Q2H RESP THERAPY PRN HHN sob Last adminis tered on 07/23/18 21:00; Admin Dose 3 ML; Start 07/23/18 at 20:30 Furosemide (Lasix) 40 mg DAILY@0600 IV Last administered on 07/28/18 05:14; Admin Dose 40 MG; Start 07/24/18 at 08:00 Diagnostic Test (Pha) (Accu-Chek) 1 ea 02 XX Last administered on 07/28/18 02:05; Admin Dose 1 EA; Start 07/27/18 at 02:00 Insulin Glargine (Lantus) 25 units DAILY@0800 SC Last administered on 07/28/18 08:40; Admin Dose 25 UNITS; Start 07/27/18 at 08:00 Insulin Aspart (Novolog Insulin Pen) 12 unit WITH MEALS SC Last administered on 07/28/18 08:40; Admin Dose 12 UNIT; Start 07/26/18 at 11:30 Insulin Aspart (Novolog Insulin Pen) NOVOLOG *MODERATE* ALGORITHM WITH MEALS BEDTIME SC Last administered on 07/27/18 08:46; Admin Dose 4 UNIT; Start 07/26/18 at 11:30 Nitroglycerin/ Dextrose 250 ml @ 1.5 mls/hr TITRATE IV ; Start 07/26/18 at 08:30 Miscellaneous Information 1 ea NOTE XX ; Start 07/26/18 at 08:30 Glucose (Glutose) 15 gm Q15M PRN PO DECREASED GLUCOSE; Start 07/26/18 at 08:30 Glucose (Glutose) 22.5 gm Q15M PRN PO DECREASED GLUCOSE; Start 07/26/18 at 08:30 Dextrose (D50w Syringe) 25 ml Q15M PRN IV DECREASED GLUCOSE; Start 07/26/18 at 08:30 Dextrose (D50w Syringe) 50 ml Q15M PRN IV DECREASED GLUCOSE; Start 07/26/18 at 08:30 Glucagon (Glucagen) 1 mg Q15M PRN IM DECREASED GLUCOSE; Start 07/26/18 at 08:30 Glucose (Glutose) 15 gm Q15M PRN BUCCAL DECREASED GLUCOSE; Start 07/26/18 at 08:30 Cefepime HCl 50 ml @ 100 mls/hr Q12 IVPB Last administered on 07/28/18at 08:14; Admin Dose 100 MLS/HR; Start 07/26/18 at 21:00 Doxycycline Hyclate (Vibramycin) 100 mg BID PO Last administered on 07/28/18at 08:14; Admin Dose 100 MG; Start 07/26/18 at 21:00 Lisinopril (Zestril) 10 mg BID PO Last administered on 07/28/18at 08:15; Admin Dose 10 MG; Start 07/27/18 at 21:00 Metoprolol Succinate (Toprol Xl) 50 mg DAILY PO Last administered on 07/28/18at 08:14; Admin Dose 50 MG; Start 07/28/18 at 09:00 Hydralazine HCl (Apresoline) 10 mg Q4H PRN IV ELEVATED BLOOD PRESSURE Last administered on 07/27/18at 23:51; Admin Dose 10 MG; Start 07/28/18 at 00:00 Assessment/Plan Hospital Course (Demo Recall) 1. Unstable angina 2. Multivessel coronary artery disease 3. 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 Diabetes 5. History of hypertension 6. Anemia 7. Postop respiratory failure currently intubated 8. POST OP FEVER : improved 9. elevated LFT: will defer to IM team Recommendations: Respiratory care will be continued managed as per pulm. cont lisinopril and toprol asa daily abx as per ID rec on PPI for GI prophylaxis Lovenox for DVT prophylaxis as well replace lytes Thank you for his referral. We will continue to follow along with you. SEAN NOGUERA MD [facility] SEAN NOGUERA MD Jul 28, 2018 11:53
[2018-07-28] MEDS: SPIRONOLACTONE 25 MG TAB PO SCH (12:17)
--- NOTE | 2018-07-28 13:03 | CONS ---
Assessment/Plan Assessment/Plan Hospital Course (Demo Recall) No acute events patient looks comfortable no fevers WBC 13.2 neutrophils 82.3 BUN 22 creatinine 0.86 Antimicrobials: Cefepime, Doxycycline Microbiology: All cultures have been negative Physical examination: Well-developed elderly man who is in no distress. Head atraumatic normocephalic. Sclera nonicteric. Buccal mucosa dry. Neck is supple, chest rise symmetrical, breath sounds diminished bases. Heart: S1-S2. Abdomen, distended, soft, bowel sounds present. Extremities with trace edema. Assessment: 1. Systemic inflammatory response syndrome, s/p postoperative fevers, likely pu lmonary source, possibly secondary to multiple lines 2. Multivessel coronary artery disease, status post CABG 3. Diabetes 4. Status post thymectomy 5. Acute kidney insufficiency 6. Pleural effusion, status post thoracentesis Plan: Remains stable, central line was discontinued, will DC antibiotics and monitor him Consultation Date/Type/Reason Admit Date/Time Jul 11, 2018 at 04:15 Initial Consult Date 07/17/18 Type of Consult id Requesting Provider: VANIA LAMB MD Date/Time of Note DATE: 07/28/18 TIME: 13:02 Exam/Review of Systems Exam Vitals Vital Signs Date Temp Pulse Resp B/P (MAP) Pulse Ox O2 O2 Flow FiO2 Time Delivery Rate 07/28/18 70 12:01 07/28/18 98.6 20 139/67 97 11:45 (91) 07/28/18 2.0 09:11 07/28/18 Nasal 09:10 Cannula 07/28/18 27 01:54 Intake and Output 07/27/18 07/27/18 07/28/18 1515:00 23:00 07:00 IntakeIntake Total 830 ml 300 ml OutputOutput Total 1575 ml BalanceBalance -745 ml 300 ml Results Result Diagram: 07/28/18 0458 07/28/18 0458 Results 24hrs Laboratory Tests Test 07/27/18 13:13 07/27/18 17:38 07/27/18 20:59 07/28/18 01:20 Bedside Glucose 110 93 122 158 Test 07/28/18 04:58 07/28/18 07:26 07/28/18 08:04 07/28/18 12:19 White Blood Count 13.2 H Red Blood Count 5.05 Hemoglobin 14.5 Hematocrit 42.4 Mean Corpuscular 84.0 Volume Mean Corpuscular 28.7 L Hemoglobin Mean Corpuscular 34.2 Hemoglobin Concent Red Cell 13.2 Distribution Width Platelet Count 281 # Mean Platelet 9.2 Volume Immature 1.100 H Granulocytes % Neutrophils % 82.3 H Lymphocytes % 8.8 L Monocytes % 7.1 Eosinophils % 0.5 Basophils % 0.2 Nucleated Red Blood 0.0 Cells % Immature 0.140 H Granulocytes # Neutrophils # 10.8 H Lymphocytes # 1.2 Monocytes # 0.9 Eosinophils # 0.1 Basophils # 0.0 Nucleated Red Blood 0.0 Cells # Sodium Level 140 Potassium Level 3.1 L Chloride Level 99 Carbon Dioxide 30 Level Anion Gap 11 Blood Urea Nitrogen 22 H Creatinine 0.86 Est Glomerular > 60 Filtrat Rate mL/min Glucose Level 154 Calcium Level 9.0 Phosphorus Level 2.8 Magnesium Level 1.9 Total Bilirubin 2.8 H Direct Bilirubin 0.70 H Indirect Bilirubin 2.1 H Aspartate Amino 151 H Transf (AST/SGOT) Alanine 229 H Aminotransferase (A LT/SGPT) Alkaline 211 H Phosphatase B-Type Natriuretic 4810 H Peptide Total Protein 7.2 Albumin 3.5 Globulin 3.70 H Albumin/Globulin 0.94 Ratio Lab Scanned Report BLOOD TRANSFUSION Bedside Glucose 138 137 Medications Medication Current Medications IV Flush (NS 3 ml) 3 ml PER PROTOCOL IV ; Start 07/11/18 at 05:30 Ondansetron HCl (Zofran Inj) 4 mg Q6H PRN IV NAUSEA/VOMITING Last administered on 07/28/18 00:40; Admin Dose 4 MG; Start 07/11/18 at 05:30 Nitroglycerin (Nitroglycerin (Sl Tab) 0.4 Mg) 1 tab Q5M PRN SL .CHEST PAIN Last administered on 07/26/18 08:58; Admin Dose 1 TAB; Start 07/11/18 at 05:30 Acetaminophen (Tylenol Tab) 650 mg Q6H PRN PO .PAIN 1-3 OR TEMP Last administered on 07/24/18 12:11; Admin Dose 650 MG; Start 07/11/18 at 05:30 Atorvastatin Calcium (Lipitor) 40 mg HS PO Last administered on 07/27/18 21:24; Admin Dose 40 MG; Start 07/11/18 at 21:00 Simethicone (Mylicon) 80 mg QID PRN GTB DISTENSION/GAS/BLOATING Last administered on 07/27/18 15:23; Admin Dose 80 MG; Start 07/13/18 at 12:30 Guaifenesin (Mucinex) 600 mg BID PO Last administered on 07/28/18 08:14; Admin Dose 600 MG; Start 07/15/18 at 10:30 Sodium Chloride (Deep Sea) 2 spray BID PRN NASAL congestion; Start 07/15/18 at 10:30 Potassium Chloride 50 ml @ 50 mls/hr SEE DIRECTION PRN IVPB K+ LEVEL Last administered on 07/21/18 13:44; Admin Dose 50 MLS/HR; Start 07/20/18 at 23:30 Magnesium Sulfate/ Dextrose 100 ml @ 100 mls/hr PRN PRN IVPB PENDING LAB VALUE; Start 07/20/18 at 23:30 Midazolam HCl (Versed) 2 mg Q2H PRN IV AGITATION; Start 07/21/18 at 04:30 Acetaminophen (Tylenol Supp) 650 mg Q4H PRN [place] MILD PAIN(1-3) OR TEMP>38C Last administered on 07/23/18 17:29; Admin Dose 650 MG; Start 07/21/18 at 04:30 Albumin Human 250 ml @ 500 mls/hr PRN PRN IV CVP< 8, OR SBP<90 Last administered on 07/22/18 21:42; Admin Dose 500 MLS/HR; Start 07/21/18 at 08:00 Acetaminophen (Tylenol Liquid) 650 mg Q6 PRN NGT MILD PAIN(1-3)OR ELEVATED TEMP Last administered on 07/23/18 06:10; Admin Dose 650 MG; Start 07/21/18 at 09:00 Pantoprazole (Protonix Iv) 40 mg DAILY@06 IV Last administered on 07/28/18 05:12; Admin Dose 40 MG; Start 07/22/18 at 06:00 Morphine Sulfate (morphine) 1 mg Q4 PRN IV PAIN LEVEL 1-5 Last administered on 07/27/18 15:23; Admin Dose 1 MG; Start 07/22/18 at 11:30 Morphine Sulfate (morphine) 2 mg Q4 PRN IV PAIN LEVEL 6-10 Last administered on 07/26/18 08:22; Admin Dose 2 MG; Start 07/22/18 at 11:30 Aspirin (Aspirin) 81 mg DAILY NGT Last administered on 07/28/18 08:14; Admin Dose 81 MG; Start 07/23/18 at 09:00 Enoxaparin Sodium (Lovenox) 30 mg DAILY SC Last administered on 07/28/18 08:40; Admin Dose 30 MG; Start 07/23/18 at 09:00 Albuterol/ Ipratropium (Duoneb) 3 ml Q6H RESP THERAPY HHN Last administered on 07/28/18 09:02; Admin Dose 3 ML; Start 07/24/18 at 02:00 Albuterol/ Ipratropium (Duoneb) 3 ml Q2H RESP THERAPY PRN HHN sob Last administered on 07/23/18 21:00; Admin Dose 3 ML; Start 07/23/18 at 20:30 Furosemide (Lasix) 40 mg DAILY@0600 IV Last administered on 07/28/18 05:14; Admin Dose 40 MG; Start 07/24/18 at 08:00 Diagnostic Test (Pha) (Accu-Chek) 1 ea 02 XX Last administered on 07/28/18 02:05; Admin Dose 1 EA; Start 07/27/18 at 02:00 Insulin Glargine (Lantus) 25 units DAILY@0800 SC Last administered on 07/28/18 08:40; Admin Dose 25 UNITS; Start 07/27/18 at 08:00 Insulin Aspart (Novolog Insulin Pen) 12 unit WITH MEALS SC Last administered on 07/28/18 12:29; Admin Dose 12 UNIT; Start 07/26/18 at 11:30 Insulin Aspart (Novolog Insulin Pen) NOVOLOG *MODERATE* ALGORITHM WITH MEALS BEDTIME SC Last administered on 07/27/18 08:46; Admin Dose 4 UNIT; Start 07/26/18 at 11:30 Nitroglycerin/ Dextrose 250 ml @ 1.5 mls/hr TITRATE IV ; Start 07/26/18 at 08:30 Miscellaneous Information 1 ea NOTE XX ; Start 07/26/18 at 08:30 Glucose (Glutose) 15 gm Q15M PRN PO DECREASED GLUCOSE; Start 07/26/18 at 08:30 Glucose (Glutose) 22.5 gm Q15M PRN PO DECREASED GLUCOSE; Start 07/26/18 at 08:30 Dextrose (D50w Syringe) 25 ml Q15M PRN IV DECREASED GLUCOSE; Start 07/26/18 at 08:30 Dextrose (D50w Syringe) 50 ml Q15M PRN IV DECREASED GLUCOSE; Start 07/26/18 at 08:30 Glucagon (Glucagen) 1 mg Q15M PRN IM DECREASED GLUCOSE; Start 07/26/18 at 08:30 Glucose (Glutose) 15 gm Q15M PRN BUCCAL DECREASED GLUCOSE; Start 07/26/18 at 08: 30 Cefepime HCl 50 ml @ 100 mls/hr Q12 IVPB Last administered on 07/28/18 08:14; Admin Dose 100 MLS/HR; Start 07/26/18 at 21:00 Doxycycline Hyclate (Vibramycin) 100 mg BID PO Last administered on 07/28/18at 08:14; Admin Dose 100 MG; Start 07/26/18 at 21:00 Lisinopril (Zestril) 10 mg BID PO Last administered on 07/28/18at 08:15; Admin Dose 10 MG; Start 07/27/18 at 21:00 Metoprolol Succinate (Toprol Xl) 50 mg DAILY PO Last administered on 07/28/18 08:14; Admin Dose 50 MG; Start 07/28/18 at 09:00 Hydralazine HCl (Apresoline) 10 mg Q4H PRN IV ELEVATED BLOOD PRESSURE Last administered on 07/27/18at 23:51; Admin Dose 10 MG; Start 07/28/18 at 00:00 Spironolactone (Aldactone) 25 mg DAILY PO Last administered on 07/28/18at 12:17; Admin Dose 25 MG; Start 07/28/18 at 12:00 Magnesium Sulfate 50 ml @ 25 mls/hr ONCE ONCE IVPB Last administered on 07/28/18at 12:32; Admin Dose 25 MLS/HR; Start 07/28/18 at 13:30; Stop 07/28/18 at 15:29 KATHY LOU NP Jul 28, 2018 13:03
[2018-07-28] MEDS ORDERED: MAGNESIUM SULFATE 2 GM/50 ML 50 ML IVPB ONE (13:30)
[2018-07-28] MEDS: ATORVASTATIN 40 MG TAB PO SCH (20:30)
[2018-07-28] MEDS ORDERED: morphine LIQ (10 MG/5 ML) CUP PO PRN ×2 (23:45)
[2018-07-29] VITALS (12 sets, daily range): BP systolic 124–161; BP diastolic 58–77; PULSE 71–96; RESP 18–22
[2018-07-29] MEDS: ALBUTEROL/IPRATROPIUM (NEB) 3 ML AMP HHN SCH ×4 (01:31→20:33)
[2018-07-29] MEDS: ACCU-CHEK XX SCH (02:08)
[2018-07-29] MEDS: FUROSEMIDE 40 MG INJ IV SCH (06:34)
[2018-07-29] MEDS: PANTOPRAZOLE 40 MG INJ IV SCH (06:34)
[2018-07-29] MEDS ORDERED: POTASSIUM CHLORIDE (SR) 20 MEQ TAB PO STA ×2 (08:19→11:17)
--- NOTE | 2018-07-29 08:36 | PN ---
DATE: 07/29/2018 SUBJECTIVE: The patient is stable, no events overnight. OBJECTIVE: VITAL SIGNS: Blood pressure is 144/72, pulse 96, respirations 22, temperature 98.0. HEENT: Head is normocephalic. NECK: Supple. HEART: Regular rate. LUNGS: Show diminished breath sounds at the base. ABDOMEN: Soft, nontender to palpation without rebound or guarding. EXTREMITIES: Negative for clubbing, cyanosis, no edema. DERMATOLOGIC: No rashes. MUSCULOSKELETAL: No joint effusion. NEUROLOGIC: No change in exam. MEDICATIONS: Reviewed. LABORATORY DATA: From 07/29/2018 showed sodium 139, potassium 3.3, BUN 21, creatinine 0.82. ASSESSMENT AND PLAN: 1. Nonoliguric acute kidney injury with previous baseline creatinine of 0.9 mg/dL. Etiology is seco ndary to hemodynamics. Renal function is improved. Continue current treatment plan. 2. Acute heart failure. The patient is clinically improving. Continue medical management. We will change Lasix from IV to p.o. and monitor. 3. Hyperkalemia, replete with potassium chloride. 4. Anemia. Continue to monitor hemoglobin and hematocrit levels. 5. Mineral bone disorder. Monitor calcium and phosphorus levels. 6. Hypernatremia, improved. 7. Hypertension. Continue current blood pressure regimen. 8. Coronary artery disease, status post coronary artery bypass graft. Continue medical management. 9. Status post cardiogenic shock. 10. Acute respiratory failure, improving. 11. Diabetes. Continue current insulin regimen. 12. Systemic inflammatory response syndrome. Dictated By: MARCO ANTONIO BARRETT DO NR/NTS Conf#: [id number] DID#: [id number] CC: VANIA LAMB MD; SUZETTE SIMMONS MD; KARINA MADDOX MD;*EndCC*
--- NOTE | 2018-07-29 08:55 | PN ---
Date/Time of Note Date/Time of Note DATE: 07/29/18 TIME: 08:55 Assessment/Plan VTE Prophylaxis Risk score (from Ns)>0 risk: 4 SCD applied (from Ns): Yes Pharmacological prophylaxis: other Lines/Catheters IV Catheter Type (from Nrsg): Saline Lock Urinary Cath still in place: No Assessment/Plan Assessment/Plan 1. CAD with unstable angina s/p 3V CABG 07/20/18 - Patient doing well without any chest pain episodes - Cleared for discharge from CT surgery with follow up in 1 week - Cardiology on board and medication adjustments made today. Appreciate recommendations 2. acute hypoxic resp distress - resolved 3. HTN - continue current medications 4. Leukocytosis - ID on board and appreciate recommendations. d/c antibiotics - WBC normalized - cultures negative for acute bacterial infection 5. Uncontrolled diabetes - A1c at OSH noted to be 12.3 - Diabetic education consultation appreciated - Lantus and Novolog on board and sugars well controlled - Upon d/c will give Metformin/Jardiance, Basaglar and Novolog- per DM educator recommendation 6. Disposition - still on full liquids. Will touch base with ST if able to advance - CM consulted for HHPT - Evaluate need for home O2 - if LFTs continue to improve, and no acute overnight issues, will d/c tomorrow Result Diagram: 07/29/18 0531 07/29/18 0542 Results 24hrs Laboratory Tests Test 07/28/18 12:19 07/28/18 17:40 07/28/18 20:29 07/29/18 02:00 Bedside Glucose 137 108 185 167 Test 07/29/18 05:31 07/29/18 05:42 07/29/18 07:59 White Blood Count 10.5 # Red Blood Count 4.90 Hemoglobin 14.0 Hematocrit 42.3 Mean Corpuscular Volume 86.3 Mean Corpuscular 28.6 L Hemoglobin Mean Corpuscular 33.1 Hemoglobin Concent Red Cell Distribution 13.3 Width Platelet Count 293 Mean Platelet Volume 9.4 Immature Granulocytes % 1.000 H Neutrophils % 80.7 H Lymphocytes % 10.3 L Monocytes % 6.8 Eosinophils % 0.9 Basophils % 0.3 Nucleated Red Blood 0.0 Cells % Immature Granulocytes # 0.100 H Neutrophils # 8.5 H Lymphocytes # 1.1 Monocytes # 0.7 Eosinophils # 0.1 Basophils # 0.0 Nucleated Red Blood 0.0 Cells # Phosphorus Level 3.2 Magnesium Level 2.1 Sodium Level 139 Potassium Level 3.3 L Chloride Level 99 Carbon Dioxide Level 29 Anion Gap 11 Blood Urea Nitrogen 21 H Creatinine 0.82 Est Glomerular Filtrat > 60 Rate mL/min Glucose Level 161 Calcium Level 9.2 Total Bilirubin 2.1 H Direct Bilirubin 0.20 # Indirect Bilirubin 1.9 H Aspartate Amino 114 H Transf (AST/SGOT) Alanine 180 H Aminotransferase (ALT/SG PT) Alkaline Phosphatase 213 H Total Protein 7.6 Albumin 3.6 Globulin 4.00 H Albumin/Globulin Ratio 0.90 Bedside Glucose 172 Subjective 24 Hr Interval Summary Free Text/Dictation Patient still with fatigue with ambulation but overall doing well. No acute issues at rest. Exam/Review of Systems Exam Vitals Vital Signs Date Temp Pulse Resp B/P (MAP) Pulse Ox O2 O2 Flow FiO2 Time Delivery Rate 07/29/18 98.0 96 22 144/72 96 Room Air 07:56 (96) 07/29/18 2.0 07:33 07/28/18 27 01:54 Intake and Output 07/28/18 07/28/18 07/29/18 1515:00 23:00 07:00 IntakeIntake Total 50 ml 200 ml 240 ml BalanceBalance 50 ml 200 ml 240 ml Exam General: Patient is ambulating around halls, fatigued but no distress Neck: Supple Chest: sternal dressing in place. no discharge or drainage Respiratory: Clear to auscultation bilaterally. no wheezing Cardiovascular: regular rate and rhythm, no obvious murmurs Gastrointestinal: soft, non-tender to palpation, bowel sounds heard. no rebound or guarding Neurological: Moves all extremities spontaneously Results Results 24hrs Laboratory Tests Test 07/28/18 12:19 07/28/18 17:40 07/28/18 20:29 07/29/18 02:00 Bedside Glucose 137 108 185 167 Test 07/29/18 05:31 07/29/18 05:42 07/29/18 07:59 White Blood Count 10.5 # Red Blood Count 4.90 Hemoglobin 14.0 Hematocrit 42.3 Mean Corpuscular Volume 86.3 Mean Corpuscular 28.6 L Hemoglobin Mean Corpuscular 33.1 Hemoglobin Concent Red Cell Distribution 13.3 Width Platelet Count 293 Mean Platelet Volume 9.4 Immature Granulocytes % 1.000 H Neutrophils % 80.7 H Lymphocytes % 10.3 L Monocytes % 6.8 Eosinophils % 0.9 Basophils % 0.3 Nucleated Red Blood 0.0 Cells % Immature Granulocytes # 0.100 H Neutrophils # 8.5 H Lymphocytes # 1.1 Monocytes # 0.7 Eosinophils # 0.1 Basophils # 0.0 Nucleated Red Blood 0.0 Cells # Phosphorus Level 3.2 Magnesium Level 2.1 Sodium Level 139 Potassium Level 3.3 L Chloride Level 99 Carbon Dioxide Level 29 Anion Gap 11 Blood Urea Nitrogen 21 H Creatinine 0.82 Est Glomerular Filtrat > 60 Rate mL/min Glucose Level 161 Calcium Level 9.2 Total Bilirubin 2.1 H Direct Bilirubin 0.20 # Indirect Bilirubin 1.9 H Aspartate Amino 114 H Transf (AST/SGOT) Alanine 180 H Aminotransferase (ALT/SG PT) Alkaline Phosphatase 213 H Total Protein 7.6 Albumin 3.6 Globulin 4.00 H Albumin/Globulin Ratio 0.90 Bedside Glucose 172 Medications Medication Current Medications IV Flush (NS 3 ml) 3 ml PER PROTOCOL IV ; Start 07/11/18 at 05:30 Ondansetron HCl (Zofran Inj) 4 mg Q6H PRN IV NAUSEA/VOMITING Last administered on 07/28/18 00:40; Admin Dose 4 MG; Start 07/11/18 at 05:30 Nitroglycerin (Nitroglycerin (Sl Tab) 0.4 Mg) 1 tab Q5M PRN SL .CHEST PAIN Last administered on 07/26/18 08:58; Admin Dose 1 TAB; Start 07/11/18 at 05:30 Acetaminophen (Tylenol Tab) 650 mg Q6H PRN PO .PAIN 1-3 OR TEMP Last administered on 07/24/18 12:11; Admin Dose 650 MG; Start 07/11/18 at 05:30 Atorvastatin Calcium (Lipitor) 40 mg HS PO Last administered on 07/28/18 20:30; Admin Dose 40 MG; Start 07/11/18 at 21:00 Simethicone (Mylicon) 80 mg QID PRN GTB DISTENSION/GAS/BLOATING Last administered on 07/27/18 15:23; Admin Dose 80 MG; Start 07/13/18 at 12:30 Guaifenesin (Mucinex) 600 mg BID PO Last administered on 07/28/18 20:30; Admin Dose 600 MG; Start 07/15/18 at 10:30 Sodium Chloride (Deep Sea) 2 spray BID PRN NASAL congestion; Start 07/15/18 at 10:30 Potassium Chloride 50 ml @ 50 mls/hr SEE DIRECTION PRN IVPB K+ LEVEL Last admi nistered on 07/21/18 13:44; Admin Dose 50 MLS/HR; Start 07/20/18 at 23:30 Magnesium Sulfate/ Dextrose 100 ml @ 100 mls/hr PRN PRN IVPB PENDING LAB VALUE; Start 07/20/18 at 23:30 Midazolam HCl (Versed) 2 mg Q2H PRN IV AGITATION; Start 07/21/18 at 04:30 Acetaminophen (Tylenol Supp) 650 mg Q4H PRN [place] MILD PAIN(1-3) OR TEMP>38C Last administered on 07/23/18 17:29; Admin Dose 650 MG; Start 07/21/18 at 04:30 Albumin Human 250 ml @ 500 mls/hr PRN PRN IV CVP< 8, OR SBP<90 Last administered on 07/22/18 21:42; Admin Dose 500 MLS/HR; Start 07/21/18 at 08:00 Acetaminophen (Tylenol Liquid) 650 mg Q6 PRN NGT MILD PAIN(1-3)OR ELEVATED TEMP Last administered on 07/23/18 06:10; Admin Dose 650 MG; Start 07/21/18 at 09:00 Pantoprazole (Protonix Iv) 40 mg DAILY@06 IV Last administered on 07/29/18 06:34; Admin Dose 40 MG; Start 07/22/18 at 06:00 Aspirin (Aspirin) 81 mg DAILY NGT Last administered on 07/28/18 08:14; Admin Dose 81 MG; Start 07/23/18 at 09:00 Enoxaparin Sodium (Lovenox) 30 mg DAILY SC Last administered on 07/28/18 08:40; Admin Dose 30 MG; Start 07/23/18 at 09:00 Albuterol/ Ipratropium (Duoneb) 3 ml Q6H RESP THERAPY HHN Last administered on 07/29/18 07:33; Admin Dose 3 ML; Start 07/24/18 at 02:00 Albuterol/ Ipratropium (Duoneb) 3 ml Q2H RESP THERAPY PRN HHN sob Last admin istered on 07/23/18at 21:00; Admin Dose 3 ML; Start 07/23/18 at 20:30 Diagnostic Test (Pha) (Accu-Chek) 1 ea 02 XX Last administered on 07/29/18at 02:08; Admin Dose 1 EA; Start 07/27/18 at 02:00 Insulin Glargine (Lantus) 25 units DAILY@0800 SC Last administered on 07/28/18 08:40; Admin Dose 25 UNITS; Start 07/27/18 at 08:00 Insulin Aspart (Novolog Insulin Pen) 12 unit WITH MEALS SC Last administered on 07/28/18 12:29; Admin Dose 12 UNIT; Start 07/26/18 at 11:30 Insulin Aspart (Novolog Insulin Pen) NOVOLOG *MODERATE* ALGORITHM WITH MEALS BEDTIME SC Last administered on 07/28/18 20:43; Admin Dose 1 UNIT; Start 07/26/18 at 11:30 Nitroglycerin/ Dextrose 250 ml @ 1.5 mls/hr TITRATE IV ; Start 07/26/18 at 08:30 Miscellaneous Information 1 ea NOTE XX ; Start 07/26/18 at 08:30 Glucose (Glutose) 15 gm Q15M PRN PO DECREASED GLUCOSE; Start 07/26/18 at 08:30 Glucose (Glutose) 22.5 gm Q15M PRN PO DECREASED GLUCOSE; Start 07/26/18 at 08:30 Dextrose (D50w Syringe) 25 ml Q15M PRN IV DECREASED GLUCOSE; Start 07/26/18 at 08:30 Dextrose (D50w Syringe) 50 ml Q15M PRN IV DECREASED GLUCOSE; Start 07/26/18 at 08:30 Glucagon (Glucagen) 1 mg Q15M PRN IM DECREASED GLUCOSE; Start 07/26/18 at 08:30 Glucose (Glutose) 15 gm Q15M PRN BUCCAL DECREASED GLUCOSE; Start 07/26/18 at 08:30 Lisinopril (Zestril) 10 mg BID PO Last administered on 07/28/18 20:30; Admin Dose 10 MG; Start 07/27/18 at 21:00 Metoprolol Succinate (Toprol Xl) 50 mg DAILY PO Last administered on 07/28/18 08:14; Admin Dose 50 MG; Start 07/28/18 at 09:00 Hydralazine HCl (Apresoline) 10 mg Q4H PRN IV ELEVATED BLOOD PRESSURE Last administered on 07/27/18at 23:51; Admin Dose 10 MG; Start 07/28/18 at 00:00 Spironolactone (Aldactone) 25 mg DAILY PO Last administered on 07/28/18at 12:17; Admin Dose 25 MG; Start 07/28/18 at 12:00 Morphine Sulfate (morphine) 3 mg Q4H PRN PO PAIN LEVEL 1-5; Start 07/28/18 at 23:45 Morphine Sulfate (morphine) 6 mg Q4H PRN PO PAIN LEVEL 6-10; Start 07/28/18 at 23:45 Bumetanide (Bumex) 1 mg DAILY PO ; Start 07/29/18 at 09:00 KARINA MADDOX MD Jul 29, 2018 08:55
[2018-07-29] MEDS: ASPIRIN 81 MG TAB NGT SCH (08:56)
[2018-07-29] MEDS: GUAIFENESIN LA 600 MG TABSR PO SCH ×2 (08:56→20:20)
[2018-07-29] MEDS: BUMETANIDE 1 MG TAB PO SCH (08:57)
[2018-07-29] MEDS: SPIRONOLACTONE 25 MG TAB PO SCH (08:57)
[2018-07-29] MEDS: LISINOPRIL 10 MG TAB PO SCH (08:57)
[2018-07-29] MEDS: METOPROLOL (XL) 50 MG TAB PO SCH (08:57)
[2018-07-29] MEDS: INSULIN ASPART [NOVOLOG] 3 ML PEN SC SCH ×7 (09:27→20:21)
[2018-07-29] MEDS: ENOXAPARIN 30 MG/0.3 ML SYG SC SCH (09:28)
[2018-07-29] MEDS: INSULIN GLARGINE [LANTus] (100 UNITS/ML) SYG SC SCH (09:28)
--- NOTE | 2018-07-29 09:52 | CONS ---
Assessment/Plan Assessment/Plan Assessment/Plan (Daily) Assessment and recommendations; 1. Patient admitted with acute PR status post CABG surgery with marked overall clinical improvement. 2. Underlying COPD. 3. Diabetes and hypertension. 4. Possibly low-grade sepsis, clinically resolved. Patient off antibiotics. Continue current supportive care. Consider discharge. Consultation Date/Type/Reason Admit Date/Time Jul 11, 2018 at 04:15 Initial Consult Date 07/17/18 Type of Consult Pulmonary/critical care Patient's condition is stable overall. Complains of cough with very scant sputum production. Denies any chest pain, wheezing. General exam; elderly male, awake alert, currently no distress. Requesting Provider: VANIA LAMB MD Date/Time of Note DATE: 07/29/18 TIME: 09:50 24 HR Interval Summary Free Text/Dictation Patient condition is stable. Complains of minimal cough. Denies any shortness of breath, chest pain. General exam; elderly male, awake alert, currently in no distress. Exam/Review of Systems Exam Vitals Vital Signs Date Temp Pulse Resp B/P (MAP) Pulse Ox O2 O2 Flow FiO2 Time Delivery Rate 07/29/18 95 08:00 07/29/18 98.0 22 144/72 96 Room Air 07:56 (96) 07/29/18 2.0 07:33 07/28/18 27 01:54 Intake and Output 07/28/18 07/28/18 07/29/18 1515:00 23:00 07:00 IntakeIntake Total 50 ml 200 ml 240 ml BalanceBalance 50 ml 200 ml 240 ml Exam HEENT exam; supple neck, no JVD. No lymphadenopathy. Midline trachea. No thyromegaly. No neck masses. Pupils are small bilaterally. Chest exam; clear to auscultation. S1-S2 audible, no murmurs. Regular rhythm. Dressing applied over the sternum. Abdomen exam; soft, nontender. No organomegaly. Bowel sounds audible. Extremity exam; no peripheral edema clubbing. Pulses 1+. [employer] exam; no focal deficit. Results Result Diagram: 07/29/18 0531 07/29/18 0542 Results 24hrs Laboratory Tests Test 07/28/18 12:19 07/28/18 17:40 07/28/18 20:29 07/29/18 02:00 Bedside Glucose 137 108 185 167 Test 07/29/18 05:31 07/29/18 05:42 07/29/18 07:59 White Blood Count 10.5 # Red Blood Count 4.90 Hemoglobin 14.0 Hematocrit 42.3 Mean Corpuscular Volume 86.3 Mean Corpuscular 28.6 L Hemoglobin Mean Corpuscular 33.1 Hemoglobin Concent Red Cell Distribution 13.3 Width Platelet Count 293 Mean Platelet Volume 9.4 Immature Granulocytes % 1.000 H Neutrophils % 80.7 H Lymphocytes % 10.3 L Monocytes % 6.8 Eosinophils % 0.9 Basophils % 0.3 Nucleated Red Blood 0.0 Cells % Immature Granulocytes # 0.100 H Neutrophils # 8.5 H Lymphocytes # 1.1 Monocytes # 0.7 Eosinophils # 0.1 Basophils # 0.0 Nucleated Red Blood 0.0 Cells # Phosphorus Level 3.2 Magnesium Level 2.1 Sodium Level 139 Potassium Level 3.3 L Chloride Level 99 Carbon Dioxide Level 29 Anion Gap 11 Blood Urea Nitrogen 21 H Creatinine 0.82 Est Glomerular Filtrat > 60 Rate mL/min Glucose Level 161 Calcium Level 9.2 Total Bilirubin 2.1 H Direct Bilirubin 0.20 # Indirect Bilirubin 1.9 H Aspartate Amino 114 H Transf (AST/SGOT) Alanine 180 H Aminotransferase (ALT/SG PT) Alkaline Phosphatase 213 H Total Protein 7.6 Albumin 3.6 Globulin 4.00 H Albumin/Globulin Ratio 0.90 Bedside Glucose 172 Medications Medication Current Medications IV Flush (NS 3 ml) 3 ml PER PROTOCOL IV ; Start 07/11/18 at 05:30 Ondansetron HCl (Zofran Inj) 4 mg Q6H PRN IV NAUSEA/VOMITING Last administered on 07/28/18 00:40; Admin Dose 4 MG; Start 07/11/18 at 05:30 Nitroglycerin (Nitroglycerin (Sl Tab) 0.4 Mg) 1 tab Q5M PRN SL .CHEST PAIN Last administered on 07/26/18 08:58; Admin Dose 1 TAB; Start 07/11/18 at 05:30 Acetaminophen (Tylenol Tab) 650 mg Q6H PRN PO .PAIN 1-3 OR TEMP Last administered on 07/24/18 12:11; Admin Dose 650 MG; Start 07/11/18 at 05:30 Atorvastatin Calcium (Lipitor) 40 mg HS PO Last administered on 07/28/18 20:30; Admin Dose 40 MG; Start 07/11/18 at 21:00 Simethicone (Mylicon) 80 mg QID PRN GTB DISTENSION/GAS/BLOATING Last administered on 07/27/18 15:23; Admin Dose 80 MG; Start 07/13/18 at 12:30 Guaifenesin (Mucinex) 600 mg BID PO Last administered on 07/29/18 08:56; Admin Dose 600 MG; Start 07/15/18 at 10:30 Sodium Chloride (Deep Sea) 2 spray BID PRN NASAL congestion; Start 07/15/18 at 10:30 Potassium Chloride 50 ml @ 50 mls/hr SEE DIRECTION PRN IVPB K+ LEVEL Last administered on 07/21/18 13:44; Admin Dose 50 MLS/HR; Start 07/20/18 at 23:30 Magnesium Sulfate/ Dextrose 100 ml @ 100 mls/hr PRN PRN IVPB PENDING LAB VALUE; Start 07/20/18 at 23:30 Midazolam HCl (Versed) 2 mg Q2H PRN IV AGITATION; Start 07/21/18 at 04:30 Acetaminophen (Tylenol Supp) 650 mg Q4H PRN [place] MILD PAIN(1-3) OR TEMP>38C Last administered on 07/23/18 17:29; Admin Dose 650 MG; Start 07/21/18 at 04:30 Albumin Human 250 ml @ 500 mls/hr PRN PRN IV CVP< 8, OR SBP<90 Last administered on 07/22/18 21:42; Admin Dose 500 MLS/HR; Start 07/21/18 at 08:00 Acetaminophen (Tylenol Liquid) 650 mg Q6 PRN NGT MILD PAIN(1-3)OR ELEVATED TEMP Last administered on 07/23/18 06:10; Admin Dose 650 MG; Start 07/21/18 at 09:00 Pantoprazole (Protonix Iv) 40 mg DAILY@06 IV Last administered on 07/29/18 06:34; Admin Dose 40 MG; Start 07/22/18 at 06:00 Aspirin (Aspirin) 81 mg DAILY NGT Last administered on 07/29/18 08:56; Admin Dose 81 MG; Start 07/23/18 at 09:00 Enoxaparin Sodium (Lovenox) 30 mg DAILY SC Last administered on 07/29/18 09:28; Admin Dose 30 MG; Start 07/23/18 at 09:00 Albuterol/ Ipratropium (Duoneb) 3 ml Q6H RESP THERAPY HHN Last administered on 07/29/18at 07:33; Admin Dose 3 ML; Start 07/24/18 at 02:00 Albuterol/ Ipratropium (Duoneb) 3 ml Q2H RESP THERAPY PRN HHN sob Last administered on 07/23/18at 21:00; Admin Dose 3 ML; Start 07/23/18 at 20:30 Diagnostic Test (Pha) (Accu-Chek) 1 ea 02 XX Last administered on 07/29/18 02:08; Admin Dose 1 EA; Start 07/27/18 at 02:00 Insulin Glargine (Lantus) 25 units DAILY@0800 SC Last administered on 07/29/18 09:28; Admin Dose 25 UNITS; Start 07/27/18 at 08:00 Insulin Aspart (Novolog Insulin Pen) 12 unit WITH MEALS SC Last administered on 07/29/18 09:28; Admin Dose 12 UNIT; Start 07/26/18 at 11:30 Insulin Aspart (Novolog Insulin Pen) NOVOLOG *MODERATE* ALGORITHM WITH MEALS BEDTIME SC Last administered on 07/29/18 09:27; Admin Dose 2 UNIT; Start 07/26/18 at 11:30 Nitroglycerin/ Dextrose 250 ml @ 1.5 mls/hr TITRATE IV ; Start 07/26/18 at 08:30 Miscellaneous Information 1 ea NOTE XX ; Start 07/26/18 at 08:30 Glucose (Glutose) 15 gm Q15M PRN PO DECREASED GLUCOSE; Start 07/26/18 at 08:30 Glucose (Glutose) 22.5 gm Q15M PRN PO DECREASED GLUCOSE; Start 07/26/18 at 08:30 Dextrose (D50w Syringe) 25 ml Q15M PRN IV DECREASED GLUCOSE; Start 07/26/18 at 08:30 Dextrose (D50w Syringe) 50 ml Q15M PRN IV DECREASED GLUCOSE; Start 07/26/18 at 08:30 Glucagon (Glucagen) 1 mg Q15M PRN IM DECREASED GLUCOSE; Start 07/26/18 at 08:30 Glucose (Glutose) 15 gm Q15M PRN BUCCAL DECREASED GLUCOSE; Start 07/26/18 at 08:30 Lisinopril (Zestril) 10 mg BID PO Last administered on 07/29/18 08:57; Admin Dose 10 MG; Start 07/27/18 at 21:00 Metoprolol Succinate (Toprol Xl) 50 mg DAILY PO Last administered on 07/29/18 08:57; Admin Dose 50 MG; Start 07/28/18 at 09:00 Hydralazine HCl (Apresoline) 10 mg Q4H PRN IV ELEVATED BLOOD PRESSURE Last administered on 07/27/18 23:51; Admin Dose 10 MG; Start 07/28/18 at 00:00 Spironolactone (Aldactone) 25 mg DAILY PO Last administered on 07/29/18 08:57; Admin Dose 25 MG; Start 07/28/18 at 12:00 Morphine Sulfate (morphine) 3 mg Q4H PRN PO PAIN LEVEL 1-5; Start 07/28/18 at 23:45 Morphine Sulfate (morphine) 6 mg Q4H PRN PO PAIN LEVEL 6-10; Start 07/28/18 at 23:45 Bumetanide (Bumex) 1 mg DAILY PO Last administered on 07/29/18 08:57; Admin Dose 1 MG; Start 07/29/18 at 09:00 KRANTHI VERA 6, 2019 09:52
--- NOTE | 2018-07-29 11:17 | CONS ---
Consult Date/Type/Reason Admit Date/Time Jul 11, 2018 at 04:15 Initial Consult Date 07/17/18 Type of Consultation: CV Requesting Provider: VANIA LAMB MD Date/Time of Note DATE: 07/29/18 TIME: 11:16 Subjective Interventional cardiology follow-up progress note Subjective: Discussed with the staff and physicians. d/w Patient status post 3 v coronary artery bypass graft 07/20/2018. Patient on tele now no chest pain + SOB mild chest wall pain . no report of PND orthopnea Objective: General: no acute distress HEENT: NC/AT. pupils are equal. round. NECK: . no stridor. Chest: Status post sternotomy, status post chest tube removed now CV: RRR. systolic murmur; no gallop or rubs. PULM: no wheezing + rhonchi GI: SOFT, NT, ND, no rebound or guarding Extremity: trace B/L LE edema. no clubbing. neuro: awake and responds appropriately Psych: calm and pleasant rectal: deferred : normal Echocardiogram done 07/11/2018 which was personally reviewed shows: Normal left ventricular systolic function. Normal left ventricular cavity size. Sigmoid septum. Ejection fraction is visually estimated at 55 %. Tissue Doppler/Mitral Doppler indices are consistent with impaired relaxation (Stage I diastolic dysfunction). Mild mitral leaflet calcification. Mild mitral annular calcification. Trace mitral regurgitation. No significant aortic stenosis or insufficiency. Aortic cusps appear mildly calcified. Normal appearance of the tricuspid valve. Estimated peak PA systolic pressure 26 mmHg. There is trace tricuspid regurgitation. Objective Vitals Vital Signs Date Temp Pulse Resp B/P (MAP) Pulse Ox O2 O2 Flow FiO2 Time Delivery Rate 07/29/18 95 08:00 07/29/18 98.0 22 144/72 96 Room Air 07:56 (96) 07/29/18 2.0 07:33 07/28/18 27 01:54 Intake and Output 07/28/18 07/28/18 07/29/18 1414:59 22:59 06:59 IntakeIntake Total 50 ml 200 ml 240 ml BalanceBalance 50 ml 200 ml 240 ml Results/Medications Result Diagram: 07/29/18 0531 07/29/18 0542 Results 24 hrs Laboratory Tests Test 07/28/18 12:19 07/28/18 17:40 07/28/18 20:29 07/29/18 02:00 Bedside Glucose 137 108 185 167 Test 07/29/18 05:31 07/29/18 05:42 07/29/18 07:59 White Blood Count 10.5 # Red Blood Count 4.90 Hemoglobin 14.0 Hematocrit 42.3 Mean Corpuscular Volume 86.3 Mean Corpuscular 28.6 L Hemoglobin Mean Corpuscular 33.1 Hemoglobin Concent Red Cell Distribution 13.3 Width Platelet Count 293 Mean Platelet Volume 9.4 Immature Granulocytes % 1.000 H Neutrophils % 80.7 H Lymphocytes % 10.3 L Monocytes % 6.8 Eosinophils % 0.9 Basophils % 0.3 Nucleated Red Blood 0.0 Cells % Immature Granulocytes # 0.100 H Neutrophils # 8.5 H Lymphocytes # 1.1 Monocytes # 0.7 Eosinophils # 0.1 Basophils # 0.0 Nucleated Red Blood 0.0 Cells # Phosphorus Level 3.2 Magnesium Level 2.1 Sodium Level 139 Potassium Level 3.3 L Chloride Level 99 Carbon Dioxide Level 29 Anion Gap 11 Blood Urea Nitrogen 21 H Creatinine 0.82 Est Glomerular Filtrat > 60 Rate mL/min Glucose Level 161 Calcium Level 9.2 Total Bilirubin 2.1 H Direct Bilirubin 0.20 # Indirect Bilirubin 1.9 H Aspartate Amino 114 H Transf (AST/SGOT) Alanine 180 H Aminotransferase (ALT/SG PT) Alkaline Phosphatase 213 H Total Protein 7.6 Albumin 3.6 Globulin 4.00 H Albumin/Globulin Ratio 0.90 Bedside Glucose 172 Medications Current Medications IV Flush (NS 3 ml) 3 ml PER PROTOCOL IV ; Start 07/11/18 at 05:30 Ondansetron HCl (Zofran Inj) 4 mg Q6H PRN IV NAUSEA/VOMITING Last administered on 07/28/18at 00:40; Admin Dose 4 MG; Start 07/11/18 at 05:30 Nitroglycerin (Nitroglycerin (Sl Tab) 0.4 Mg) 1 tab Q5M PRN SL .CHEST PAIN Last administered on 07/26/18 08:58; Admin Dose 1 TAB; Start 07/11/18 at 05:30 Acetaminophen (Tylenol Tab) 650 mg Q6H PRN PO .PAIN 1-3 OR TEMP Last ad ministered on 07/24/18at 12:11; Admin Dose 650 MG; Start 07/11/18 at 05:30 Atorvastatin Calcium (Lipitor) 40 mg HS PO Last administered on 07/28/18 20:30; Admin Dose 40 MG; Start 07/11/18 at 21:00 Simethicone (Mylicon) 80 mg QID PRN GTB DISTENSION/GAS/BLOATING Last administered on 07/27/18 15:23; Admin Dose 80 MG; Start 07/13/18 at 12:30 Guaifenesin (Mucinex) 600 mg BID PO Last administered on 07/29/18 08:56; Admin Dose 600 MG; Start 07/15/18 at 10:30 Sodium Chloride (Deep Sea) 2 spray BID PRN NASAL congestion; Start 07/15/18 at 10:30 Potassium Chloride 50 ml @ 50 mls/hr SEE DIRECTION PRN IVPB K+ LEVEL Last administered on 07/21/18 13:44; Admin Dose 50 MLS/HR; Start 07/20/18 at 23:30 Magnesium Sulfate/ Dextrose 100 ml @ 100 mls/hr PRN PRN IVPB PENDING LAB VALUE; Start 07/20/18 at 23:30 Midazolam HCl (Versed) 2 mg Q2H PRN IV AGITATION; Start 07/21/18 at 04:30 Acetaminophen (Tylenol Supp) 650 mg Q4H PRN [place] MILD PAIN(1-3) OR TEMP>38C Last administered on 07/23/18 17:29; Admin Dose 650 MG; Start 07/21/18 at 04:30 Albumin Human 250 ml @ 500 mls/hr PRN PRN IV CVP< 8, OR SBP<90 Last administered on 07/22/18 21:42; Admin Dose 500 MLS/HR; Start 07/21/18 at 08:00 Acetaminophen (Tylenol Liquid) 650 mg Q6 PRN NGT MILD PAIN(1-3)OR ELEVATED TEMP Last administered on 07/23/18 06:10; Admin Dose 650 MG; Start 07/21/18 at 09:00 Pantoprazole (Protonix Iv) 40 mg DAILY@06 IV Last administered on 07/29/18 06:34; Admin Dose 40 MG; Start 07/22/18 at 06:00 Aspirin (Aspirin) 81 mg DAILY NGT Last administered on 07/29/18 08:56; Admin Dose 81 MG; Start 07/23/18 at 09:00 Enoxaparin Sodium (Lovenox) 30 mg DAILY SC Last administered on 07/29/18 09:28; Admin Dose 30 MG; Start 07/23/18 at 09:00 Albuterol/ Ipratropium (Duoneb) 3 ml Q6H RESP THERAPY HHN Last administered on 07/29/18 07:33; Admin Dose 3 ML; Start 07/24/18 at 02:00 Albuterol/ Ipratropium (Duoneb) 3 ml Q2H RESP THERAPY PRN HHN sob Last administered on 07/23/18at 21:00; Admin Dose 3 ML; Start 07/23/18 at 20:30 Diagnostic Test (Pha) (Accu-Chek) 1 ea 02 XX Last administered on 07/29/18at 02:08; Admin Dose 1 EA; Start 07/27/18 at 02:00 Insulin Glargine (Lantus) 25 units DAILY@0800 SC Last administered on 07/29/18 09:28; Admin Dose 25 UNITS; Start 07/27/18 at 08:00 Insulin Aspart (Novolog Insulin Pen) 12 unit WITH MEALS SC Last administered on 07/29/18 09:28; Admin Dose 12 UNIT; Start 07/26/18 at 11:30 Insulin Aspart (Novolog Insulin Pen) NOVOLOG *MODERATE* ALGORITHM WITH MEALS BEDTIME SC Last administered on 07/29/18 09:27; Admin Dose 2 UNIT; Start 07/26/18 at 11:30 Nitroglycerin/ Dextrose 250 ml @ 1.5 mls/hr TITRATE IV ; Start 07/26/18 at 08:30 Miscellaneous Information 1 ea NOTE XX ; Start 07/26/18 at 08:30 Glucose (Glutose) 15 gm Q15M PRN PO DECREASED GLUCOSE; Start 07/26/18 at 08:30 Glucose (Glutose) 22.5 gm Q15M PRN PO DECREASED GLUCOSE; Start 07/26/18 at 08:30 Dextrose (D50w Syringe) 25 ml Q15M PRN IV DECREASED GLUCOSE; Start 07/26/18 at 08:30 Dextrose (D50w Syringe) 50 ml Q15M PRN IV DECREASED GLUCOSE; Start 07/26/18 at 08:30 Glucagon (Glucagen) 1 mg Q15M PRN IM DECREASED GLUCOSE; Start 07/26/18 at 08:30 Glucose (Glutose) 15 gm Q15M PRN BUCCAL DECREASED GLUCOSE; Start 07/26/18 at 08:30 Lisinopril (Zestril) 10 mg BID PO Last administered on 07/29/18 08:57; Admin Dose 10 MG; Start 07/27/18 at 21:00 Metoprolol Succinate (Toprol Xl) 50 mg DAILY PO Last administered on 07/29/18 08:57; Admin Dose 50 MG; Start 07/28/18 at 09:00 Hydralazine HCl (Apresoline) 10 mg Q4H PRN IV ELEVATED BLOOD PRESSURE Last administered on 07/27/18 23:51; Admin Dose 10 MG; Start 07/28/18 at 00:00 Spironolactone (Aldactone) 25 mg DAILY PO Last administered on 07/29/18 08:57; Admin Dose 25 MG; Start 07/28/18 at 12:00 Morphine Sulfate (morphine) 3 mg Q4H PRN PO PAIN LEVEL 1-5; Start 07/28/18 at 23:45 Morphine Sulfate (morphine) 6 mg Q4H PRN PO PAIN LEVEL 6-10; Start 07/28/18 at 23:45 Bumetanide (Bumex) 1 mg DAILY PO Last administered on 07/29/18 08:57; Admin Dose 1 MG; Start 07/29/18 at 09:00 Assessment/Plan Hospital Course (Demo Recall) 1. Unstable angina 2. Multivessel coronary artery disease 3. 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 Diabetes 5. History of hypertension 6. Anemia 7. Postop respiratory failure currently intubated 8. POST OP FEVER : improved 9. elevated LFT: will defer to IM team Recommendations: Respiratory care will be continued managed as per pulm. cont lisinopril and toprol asa daily abx as per ID rec on PPI for GI prophylaxis Lovenox for DVT prophylaxis as well replace lytes PRN dc planning when ok with CT surgery and IM Thank you for his referral. We will continue to follow along with you. SEAN NOGUERA MD [facility] SEAN NOGUERA MD Jul 29, 2018 11:17
--- NOTE | 2018-07-29 12:18 | PN ---
Date/Time of Note Date/Time of Note DATE: 07/29/18 TIME: 12:17 Assessment/Plan Lines/Catheters IV Catheter Type (from Nrsg): Saline Lock Roa in Place (from Nrsg): No Assessment/Plan Assessment/Plan Coronary artery disease Status post coronary artery bypass grafting Hestable post op DC planning FU with me 1 week Subjective 24 Hr Interval Summary Constitutional: improved Pain Control: mild Exam/Review of Systems Vital Signs Vitals Vital Signs Date Temp Pulse Resp B/P (MAP) Pulse Ox O2 O2 Flow FiO2 Time Delivery Rate 07/29/18 97.6 76 21 124/58 96 Room Air 12:01 (80) 07/29/18 2.0 07:33 07/28/18 27 01:54 Intake and Output 07/28/18 07/28/18 07/29/18 1515:00 23:00 07:00 IntakeIntake Total 50 ml 200 ml 240 ml BalanceBalance 50 ml 200 ml 240 ml Exam Eyes: nl conjunctiva, EOMI, nl lids, nl sclera ENMT: nl external ears & nose, nl lips & teeth, nl nasal mucosa & septum, mucosa pink and moist Neck: supple, non-tender Respiratory: clear to auscultation, normal air movement Cardiovascular: regular rate and rhythm, nl pulses Gastrointestinal: soft, nl liver, spleen, non-tender Results Result Diagram: 07/29/18 0531 07/29/18 0542 VANIA LAMB MD Jul 29, 2018 12:18
--- NOTE | 2018-07-29 14:19 | CONS ---
Assessment/Plan Assessment/Plan Hospital Course (Demo Recall) No events, no fevers, looks comfortable, at bedside Microbiology: All cultures have been negative Physical examination: Well-developed elderly man who is in no distress. Head atraumatic normocephalic. Sclera nonicteric. Buccal mucosa dry. Neck is supple, chest rise symmetrical, breath sounds diminished bases. Heart: S1-S2. Abdomen, distended, soft, bowel sounds present. Extremities with trace edema. Assessment: 1. Systemic inflammatory response syndrome, s/p postoperative fevers, likely pulmonary source, possibly secondary to multiple lines 2. Multivessel coronary artery disease, status post CABG 3. Diabetes 4. Status post thymectomy 5. Acute kidney insufficiency 6. Pleural effusion, status post thoracentesis Plan: Remains stable, off antibiotics Consultation Date/Type/Reason Admit Date/Time Jul 11, 2018 at 04:15 Initial Consult Date 07/17/18 Type of Consult id Requesting Provider: VANIA LAMB MD Date/Time of Note DATE: 07/29/18 TIME: 14:18 Exam/Review of Systems Exam Vitals Vital Signs Date Temp Pulse Resp B/P (MAP) Pulse Ox O2 O2 Flow FiO2 Time Delivery Rate 07/29/18 69 16 96 Nasal 2.0 13:17 Cannula 07/29/18 97.6 124/58 12:01 (80) 07/28/18 27 01:54 Intake and Output 07/28/18 07/28/18 07/29/18 1515:00 23:00 07:00 IntakeIntake Total 50 ml 200 ml 240 ml BalanceBalance 50 ml 200 ml 240 ml Results Result Diagram: 07/29/18 0531 07/29/18 0542 Results 24hrs Laboratory Tests Test 07/28/18 17:40 07/28/18 20:29 07/29/18 02:00 07/29/18 05:31 Bedside Glucose 108 185 167 White Blood Count 10.5 # Red Blood Count 4.90 Hemoglobin 14.0 Hematocrit 42.3 Mean Corpuscular Volume 86.3 Mean Corpuscular 28.6 L Hemoglobin Mean Corpuscular 33.1 Hemoglobin Concent Red Cell Distribution 13.3 Width Platelet Count 293 Mean Platelet Volume 9.4 Immature Granulocytes % 1.000 H Neutrophils % 80.7 H Lymphocytes % 10.3 L Monocytes % 6.8 Eosinophils % 0.9 Basophils % 0.3 Nucleated Red Blood 0.0 Cells % Immature Granulocytes # 0.100 H Neutrophils # 8.5 H Lymphocytes # 1.1 Monocytes # 0.7 Eosinophils # 0.1 Basophils # 0.0 Nucleated Red Blood 0.0 Cells # Phosphorus Level 3.2 Magnesium Level 2.1 Test 07/29/18 05:42 07/29/18 07:59 07/29/18 11:52 Sodium Level 139 Potassium Level 3.3 L Chloride Level 99 Carbon Dioxide Level 29 Anion Gap 11 Blood Urea Nitrogen 21 H Creatinine 0.82 Est Glomerular Filtrat > 60 Rate mL/min Glucose Level 161 Calcium Level 9.2 Total Bilirubin 2.1 H Direct Bilirubin 0.20 # Indirect Bilirubin 1.9 H Aspartate Amino 114 H Transf (AST/SGOT) Alanine 180 H Aminotransferase (ALT/SG PT) Alkaline Phosphatase 213 H Total Protein 7.6 Albumin 3.6 Globulin 4.00 H Albumin/Globulin Ratio 0.90 Bedside Glucose 172 148 Medications Medication Current Medications IV Flush (NS 3 ml) 3 ml PER PROTOCOL IV ; Start 07/11/18 at 05:30 Ondansetron HCl (Zofran Inj) 4 mg Q6H PRN IV NAUSEA/VOMITING Last administered on 07/28/18 00:40; Admin Dose 4 MG; Start 07/11/18 at 05:30 Nitroglycerin (Nitroglycerin (Sl Tab) 0.4 Mg) 1 tab Q5M PRN SL .CHEST PAIN Last administered on 07/26/18 08:58; Admin Dose 1 TAB; Start 07/11/18 at 05:30 Acetaminophen (Tylenol Tab) 650 mg Q6H PRN PO .PAIN 1-3 OR TEMP Last administered on 07/24/18 12:11; Admin Dose 650 MG; Start 07/11/18 at 05:30 Atorvastatin Calcium (Lipitor) 40 mg HS PO Last administered on 07/28/18 20:30; Admin Dose 40 MG; Start 07/11/18 at 21:00 Simethicone (Mylicon) 80 mg QID PRN GTB DISTENSION/GAS/BLOATING Last administered on 07/27/18 15:23; Admin Dose 80 MG; Start 07/13/18 at 12:30 Guaifenesin (Mucinex) 600 mg BID PO Last administered on 07/29/18 08:56; Admin Dose 600 MG; Start 07/15/18 at 10:30 Sodium Chloride (Deep Sea) 2 spray BID PRN NASAL congestion; Start 07/15/18 at 10:30 Potassium Chloride 50 ml @ 50 mls/hr SEE DIRECTION PRN IVPB K+ LEVEL Last administered on 07/21/18 13:44; Admin Dose 50 MLS/HR; Start 07/20/18 at 23:30 Magnesium Sulfate/ Dextrose 100 ml @ 100 mls/hr PRN PRN IVPB PENDING LAB VALUE; Start 07/20/18 at 23:30 Midazolam HCl (Versed) 2 mg Q2H PRN IV AGITATION; Start 07/21/18 at 04:30 Acetaminophen (Tylenol Supp) 650 mg Q4H PRN SD MILD PAIN(1-3) OR TEMP>38C Last administered on 07/23/18 17:29; Admin Dose 650 MG; Start 07/21/18 at 04:30 Albumin Human 250 ml @ 500 mls/hr PRN PRN IV CVP< 8, OR SBP<90 Last administered on 07/22/18 21:42; Admin Dose 500 MLS/HR; Start 07/21/18 at 08:00 Acetaminophen (Tylenol Liquid) 650 mg Q6 PRN NGT MILD PAIN(1-3)OR ELEVATED TEMP Last administered on 07/23/18 06:10; Admin Dose 650 MG; Start 07/21/18 at 09:00 Pantoprazole (Protonix Iv) 40 mg DAILY@06 IV Last administered on 07/29/18 06:34; Admin Dose 40 MG; Start 07/22/18 at 06:00 Aspirin (Aspirin) 81 mg DAILY NGT Last administered on 07/29/18 08:56; Admin Dose 81 MG; Start 07/23/18 at 09:00 Enoxaparin Sodium (Lovenox) 30 mg DAILY SC Last administered on 07/29/18 09:28; Admin Dose 30 MG; Start 07/23/18 at 09:00 Albuterol/ Ipratropium (Duoneb) 3 ml Q6H RESP THERAPY HHN Last administered on 07/29/18 13:17; Admin Dose 3 ML; Start 07/24/18 at 02:00 Albuterol/ Ipratropium (Duoneb) 3 ml Q2H RESP THERAPY PRN HHN sob Last administered on 07/23/18at 21:00; Admin Dose 3 ML; Start 07/23/18 at 20:30 Diagnostic Test (Pha) (Accu-Chek) 1 ea 02 XX Last administered on 07/29/18at 02:08; Admin Dose 1 EA; Start 07/27/18 at 02:00 Insulin Glargine (Lantus) 25 units DAILY@0800 SC Last administered on 07/29/18 09:28; Admin Dose 25 UNITS; Start 07/27/18 at 08:00 Insulin Aspart (Novolog Insulin Pen) 12 unit WITH MEALS SC Last administered on 07/29/18 09:28; Admin Dose 12 UNIT; Start 07/26/18 at 11:30 Insulin Aspart (Novolog Insulin Pen) NOVOLOG *MODERATE* ALGORITHM WITH MEALS BEDTIME SC Last administered on 07/29/18 12:32; Admin Dose 2 UNIT; Start 07/26/18 at 11:30 Nitroglycerin/ Dextrose 250 ml @ 1.5 mls/hr TITRATE IV ; Start 07/26/18 at 08:30; Status Hold Miscellaneous Information 1 ea NOTE XX ; Start 07/26/18 at 08:30 Glucose (Glutose) 15 gm Q15M PRN PO DECREASED GLUCOSE; Start 07/26/18 at 08:30 Glucose (Glutose) 22.5 gm Q15M PRN PO DECREASED GLUCOSE; Start 07/26/18 at 08:30 Dextrose (D50w Syringe) 25 ml Q15M PRN IV DECREASED GLUCOSE; Start 07/26/18 at 08:30 Dextrose (D50w Syringe) 50 ml Q15M PRN IV DECREASED GLUCOSE; Start 07/26/18 at 08:30 Glucagon (Glucagen) 1 mg Q15M PRN IM DECREASED GLUCOSE; Start 07/26/18 at 08:30 Glucose (Glutose) 15 gm Q15M PRN BUCCAL DECREASED GLUCOSE; Start 07/26/18 at 08:30 Metoprolol Succinate (Toprol Xl) 50 mg DAILY PO Last administered on 07/29/18 08:57; Admin Dose 50 MG; Start 07/28/18 at 09:00 Hydralazine HCl (Apresoline) 10 mg Q4H PRN IV ELEVATED BLOOD PRESSURE Last administered on 07/27/18at 23:51; Admin Dose 10 MG; Start 07/28/18 at 00:00 Spironolactone (Aldactone) 25 mg DAILY PO Last administered on 07/29/18at 08:57; Admin Dose 25 MG; Start 07/28/18 at 12:00 Morphine Sulfate (morphine) 3 mg Q4H PRN PO PAIN LEVEL 1-5; Start 07/28/18 at 23:45 Morphine Sulfate (morphine) 6 mg Q4H PRN PO PAIN LEVEL 6-10; Start 07/28/18 at 23:45 Bumetanide (Bumex) 1 mg DAILY PO Last administered on 07/29/18at 08:57; Admin Dose 1 MG; Start 07/29/18 at 09:00 Lisinopril (Zestril) 20 mg BID PO ; Start 07/29/18 at 21:00 KATHY LOU NP Jul 29, 2018 14:19
[2018-07-29] MEDS: LISINOPRIL 20 MG TAB PO SCH (20:20)
[2018-07-29] MEDS: ATORVASTATIN 40 MG TAB PO SCH (20:20)
[2018-07-30] VITALS (9 sets, daily range): BP systolic 108–148; BP diastolic 59–87; PULSE 72–95; RESP 18–20
[2018-07-30] MEDS: ALBUTEROL/IPRATROPIUM (NEB) 3 ML AMP HHN SCH ×4 (01:29→19:49)
[2018-07-30] MEDS: ACCU-CHEK XX SCH (02:00)
[2018-07-30] MEDS: PANTOPRAZOLE (EC) 40 MG TAB PO SCH (05:38)
--- NOTE | 2018-07-30 08:06 | CONS ---
Consult Date/Type/Reason Admit Date/Time Jul 11, 2018 at 04:15 Initial Consult Date 07/17/18 Type of Consultation: CV Requesting Provider: VANIA LAMB MD Date/Time of Note DATE: 07/30/18 TIME: 08:05 Subjective Interventional cardiology follow-up progress note Subjective: Discussed with the staff and physicians. d/w Patient status post 3 v coronary artery bypass graft 07/20/2018. Patient on tele now less SOB today mild chest wall pain . no PND orthopnea Objective: General: no acute distress HEENT: NC/AT. pupils are equal. round. NECK: . no stridor. Chest: Status post sternotomy, status post chest tube removed now CV: RRR. systolic murmur; no gallop or rubs. PULM: no wheezing minimal rhonchi GI: SOFT, NT, ND, no rebound or guarding Extremity: trace B/L LE edema. no clubbing. neuro: awake and responds appropriately Psych: calm and pleasant rectal: deferred : normal Echocardiogram done 07/11/2018 which was personally reviewed shows: Normal left ventricular systolic function. Normal left ventricular cavity size. Sigmoid septum. Ejection fraction is visually estimated at 55 %. Tissue Doppler/Mitral Doppler indices are consistent with impaired relaxation (Stage I diastolic dysfunction). Mild mitral leaflet calcification. Mild mitral annular calcification. Trace mitral regurgitation. No significant aortic stenosis or insufficiency. Aortic cusps appear mildly calcified. Normal appearance of the tricuspid valve. Estimated peak PA systolic pressure 26 mmHg. There is trace tricuspid regurgitation. Objective Vitals Vital Signs Date Temp Pulse Resp B/P (MAP) Pulse Ox O2 O2 Flow FiO2 Time Delivery Rate 07/30/18 98.2 86 20 146/76 93 Nasal 07:15 (99) Cannula 07/30/18 1.0 01:29 07/28/18 27 01:54 Intake and Output 07/29/18 07/29/18 07/30/18 1515:00 23:00 07:00 IntakeIntake Total 980 ml 240 ml BalanceBalance 980 ml 240 ml Results/Medications Result Diagram: 07/29/18 0531 07/30/18 0543 Results 24 hrs Laboratory Tests Test 07/29/18 11:52 07/29/18 19:03 07/29/18 20:19 07/30/18 05:43 Bedside Glucose 148 144 136 Sodium Level 134 L Potassium Level 4.1 Chloride Level 95 L Carbon Dioxide Level 31 Anion Gap 8 Blood Urea Nitrogen 23 H Creatinine 0.87 Est Glomerular Filtrat > 60 Rate mL/min Glucose Level 209 Calcium Level 9.7 Phosphorus Level 3.7 Magnesium Level 1.8 Total Bilirubin 2.1 H Direct Bilirubin 0.10 Indirect Bilirubin 2.0 H Aspartate Amino 154 H Transf (AST/SGOT) Alanine 182 H Aminotransferase (ALT/SG PT) Alkaline Phosphatase 200 H Total Protein 7.9 Albumin 3.7 Globulin 4.20 H Albumin/Globulin Ratio 0.88 Medications Current Medications IV Flush (NS 3 ml) 3 ml PER PROTOCOL IV ; Start 07/11/18 at 05:30 Ondansetron HCl (Zofran Inj) 4 mg Q6H PRN IV NAUSEA/VOMITING Last administered on 07/28/18 00:40; Admin Dose 4 MG; Start 07/11/18 at 05:30 Nitroglycerin (Nitroglycerin (Sl Tab) 0.4 Mg) 1 tab Q5M PRN SL .CHEST PAIN Last administered on 07/26/18 08:58; Admin Dose 1 TAB; Start 07/11/18 at 05:30 Acetaminophen (Tylenol Tab) 650 mg Q6H PRN PO .PAIN 1-3 OR TEMP Last administered on 07/24/18 12:11; Admin Dose 650 MG; Start 07/11/18 at 05:30 Atorvastatin Calcium (Lipitor) 40 mg HS PO Last administered on 07/29/18 20:20; Admin Dose 40 MG; Start 07/11/18 at 21:00 Simethicone (Mylicon) 80 mg QID PRN GTB DISTENSION/GAS/BLOATING Last administered on 07/27/18 15:23; Admin Dose 80 MG; Start 07/13/18 at 12:30 Guaifenesin (Mucinex) 600 mg BID PO Last administered on 07/29/18 20:20; Admin Dose 600 MG; Start 07/15/18 at 10:30 Sodium Chloride (Deep Sea) 2 spray BID PRN NASAL congestion; Start 07/15/18 at 10:30 Potassium Chloride 50 ml @ 50 mls/hr SEE DIRECTION PRN IVPB K+ LEVEL Last administered on 07/21/18 13:44; Admin Dose 50 MLS/HR; Start 07/20/18 at 23:30 Magnesium Sulfate/ Dextrose 100 ml @ 100 mls/hr PRN PRN IVPB PENDING LAB VALUE; Start 07/20/18 at 23:30 Midazolam HCl (Versed) 2 mg Q2H PRN IV AGITATION; Start 07/21/18 at 04:30 Acetaminophen (Tylenol Supp) 650 mg Q4H PRN [place] MILD PAIN(1-3) OR TEMP>38C Last administered on 07/23/18 17:29; Admin Dose 650 MG; Start 07/21/18 at 04:30 Albumin Human 250 ml @ 500 mls/hr PRN PRN IV CVP< 8, OR SBP<90 Last administered on 07/22/18 21:42; Admin Dose 500 MLS/HR; Start 07/21/18 at 08:00 Acetaminophen (Tylenol Liquid) 650 mg Q6 PRN NGT MILD PAIN(1-3)OR ELEVATED TEMP Last administered on 07/23/18 06:10; Admin Dose 650 MG; Start 07/21/18 at 09:00 Aspirin (Aspirin) 81 mg DAILY NGT Last administered on 07/29/18 08:56; Admin Dose 81 MG; Start 07/23/18 at 09:00 Enoxaparin Sodium (Lovenox) 30 mg DAILY SC Last administered on 07/29/18 09:28; Admin Dose 30 MG; Start 07/23/18 at 09:00 Albuterol/ Ipratropium (Duoneb) 3 ml Q6H RESP THERAPY HHN Last administered on 07/30/18 01:29; Admin Dose 3 ML; Start 07/24/18 at 02:00 Albuterol/ Ipratropium (Duoneb) 3 ml Q2H RESP THERAPY PRN HHN sob Last administered on 07/23/18 21:00; Admin Dose 3 ML; Start 07/23/18 at 20:30 Diagnostic Test (Pha) (Accu-Chek) 1 ea 02 XX Last administered on 07/29/18 02:08; Admin Dose 1 EA; Start 07/27/18 at 02:00 Insulin Glargine (Lantus) 25 units DAILY@0800 SC Last administered on 07/29/18 09:28; Admin Dose 25 UNITS; Start 07/27/18 at 08:00 Insulin Aspart (Novolog Insulin Pen) 12 unit WITH MEALS SC Last administered on 07/29/18at 09:28; Admin Dose 12 UNIT; Start 07/26/18 at 11:30 Insulin Aspart (Novolog Insulin Pen) NOVOLOG *MODERATE* ALGORITHM WITH MEALS BEDTIME SC Last administered on 07/29/18at 19:15; Admin Dose 2 UNIT; Start 07/26/18 at 11:30 Nitroglycerin/ Dextrose 250 ml @ 1.5 mls/hr TITRATE IV ; Start 07/26/18 at 08:30; Status Hold Miscellaneous Information 1 ea NOTE XX ; Start 07/26/18 at 08:30 Glucose (Glutose) 15 gm Q15M PRN PO DECREASED GLUCOSE; Start 07/26/18 at 08:30 Glucose (Glutose) 22.5 gm Q15M PRN PO DECREASED GLUCOSE; Start 07/26/18 at 08:30 Dextrose (D50w Syringe) 25 ml Q15M PRN IV DECREASED GLUCOSE; Start 07/26/18 at 08:30 Dextrose (D50w Syringe) 50 ml Q15M PRN IV DECREASED GLUCOSE; Start 07/26/18 at 08:30 Glucagon (Glucagen) 1 mg Q15M PRN IM DECREASED GLUCOSE; Start 07/26/18 at 08:30 Glucose (Glutose) 15 gm Q15M PRN BUCCAL DECREASED GLUCOSE; Start 07/26/18 at 08:30 Metoprolol Succinate (Toprol Xl) 50 mg DAILY PO Last administered on 07/29/18at 08:57; Admin Dose 50 MG; Start 07/28/18 at 09:00 Hydralazine HCl (Apresoline) 10 mg Q4H PRN IV ELEVATED BLOOD PRESSURE Last administered on 07/27/18at 23:51; Admin Dose 10 MG; Start 07/28/18 at 00:00 Spironolactone (Aldactone) 25 mg DAILY PO Last administered on 07/29/18at 08:57; Admin Dose 25 MG; Start 07/28/18 at 12:00 Morphine Sulfate (morphine) 3 mg Q4H PRN PO PAIN LEVEL 1-5; Start 07/28/18 at 23:45 Morphine Sulfate (morphine) 6 mg Q4H PRN PO PAIN LEVEL 6-10; Start 07/28/18 at 23:45 Bumetanide (Bumex) 1 mg DAILY PO Last administered on 07/29/18at 08:57; Admin Dose 1 MG; Start 07/29/18 at 09:00 Lisinopril (Zestril) 20 mg BID PO Last administered on 07/29/18at 20:20; Admin Dose 20 MG; Start 07/29/18 at 21:00 Pantoprazole (Protonix Tab) 40 mg DAILY@06 PO Last administered on 07/30/18at 05 :38; Admin Dose 40 MG; Start 07/30/18 at 06:00 Assessment/Plan Hospital Course (Demo Recall) 1. Unstable angina 2. Multivessel coronary artery disease 3. 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 Diabetes 5. History of hypertension 6. Anemia 7. Postop respiratory failure currently intubated 8. POST OP FEVER : improved 9. elevated LFT: will defer to IM team Recommendations: Respiratory care will be continued managed as per pulm. cont lisinopril and toprol asa daily abx as per ID rec on PPI for GI prophylaxis Lovenox for DVT prophylaxis as well replace lytes PRN dc planning when ok with CT surgery and IM Thank you for his referral. We will continue to follow along with you. SEAN NOGUERA MD [facility] SEAN NOGUERA MD Jul 30, 2018 08:06
[2018-07-30] MEDS: METOPROLOL (XL) 50 MG TAB PO SCH (08:29)
[2018-07-30] MEDS: BUMETANIDE 1 MG TAB PO SCH (08:29)
[2018-07-30] MEDS: GUAIFENESIN LA 600 MG TABSR PO SCH ×2 (08:30→20:17)
[2018-07-30] MEDS: SPIRONOLACTONE 25 MG TAB PO SCH (08:30)
[2018-07-30] MEDS: ASPIRIN 81 MG TAB NGT SCH (08:30)
[2018-07-30] MEDS: LISINOPRIL 20 MG TAB PO SCH ×2 (08:30→20:17)
[2018-07-30] MEDS: INSULIN GLARGINE [LANTus] (100 UNITS/ML) SYG SC SCH (08:37)
[2018-07-30] MEDS: INSULIN ASPART [NOVOLOG] 3 ML PEN SC SCH ×7 (08:37→20:17)
[2018-07-30] MEDS: ENOXAPARIN 30 MG/0.3 ML SYG SC SCH (08:37)
--- NOTE | 2018-07-30 08:49 | RADRPT ---
Vent Rate: 63 bpm RR Interval: 0 msec [place] Interval: 158 msec QRS Duration: 84 msec QT Interval: 428 msec QTC Interval: 437 msec P-R-T [place]: 28 - -8 - 13 degrees Normal sinus rhythm Possible Left atrial enlargement nonspeicific ST T abnormaliteis Abnormal ECG Electronically Signed By: Glen Martinez
--- NOTE | 2018-07-30 08:50 | RADRPT ---
Vent Rate: 70 bpm RR Interval: 0 msec [place] Interval: 146 msec QRS Duration: 86 msec QT Interval: 434 msec QTC Interval: 468 msec P-R-T [place]: 29 - -10 - 7 degrees Normal sinus rhythm Possible Left atrial enlargement nonspecific ST T abnormaliteis Abnormal ECG Electronically Signed By: Glen Martinez
--- NOTE | 2018-07-30 09:06 | PN ---
Date/Time of Note Date/Time of Note DATE: 07/30/18 TIME: 09:06 Assessment/Plan VTE Prophylaxis Risk score (from Nsg)>0 risk: 7 SCD applied (from Nsg): Yes Pharmacological prophylaxis: other Lines/Catheters IV Catheter Type (from Nrsg): Saline Lock Urinary Cath still in place: No Assessment/Plan Assessment/Plan 1. CAD with unstable angina s/p 3V CABG 07/20/18 - Patient denies any chest pain but does admit to shortness of breath with associated dry cough. Will check CXR - Cleared for discharge from CT surgery with follow up in 1 week - Cardiology on board and medication adjustments made today. Appreciate recommendations 2. acute hypoxic resp distress - will check need for home O2 3. HTN - continue current medications 4. Leukocytosis - ID on board and appreciate recommendations. d/c antibiotics - WBC normalized - cultures negative for acute bacterial infection 5. Uncontrolled diabetes - A1c at OSH noted to be 12.3 - Diabetic education consultation appreciated - Lantus and Novolog on board and sugars well controlled - Upon d/c will give Metformin/Jardiance, Basaglar and Novolog- per DM educator recommendation 6. Transaminitis - denies any pain - will check US RUQ - may be from congestion 7. Dysphagia - ST on board and requested reevaluation given still on full liquids 8. Disposition - CM consulted for HHPT and possible home O2 - CXR to assess SOB - RUQ US to assess elevated LFT - ST to assess if able to advance diet - If remains stable, will plan for d/c tomorrow Result Diagram: 07/29/18 0531 07/30/18 0543 Results 24hrs Laboratory Tests Test 07/29/18 11:52 07/29/18 19:03 07/29/18 20:19 07/30/18 05:43 Bedside Glucose 148 144 136 Sodium Level 134 L Potassium Level 4.1 Chloride Level 95 L Carbon Dioxide Level 31 Anion Gap 8 Blood Urea Nitrogen 23 H Creatinine 0.87 Est Glomerular Filtrat > 60 Rate mL/min Glucose Level 209 Calcium Level 9.7 Phosphorus Level 3.7 Magnesium Level 1.8 Total Bilirubin 2.1 H Direct Bilirubin 0.10 Indirect Bilirubin 2.0 H Aspartate Amino 154 H Transf (AST/SGOT) Alanine 182 H Aminotransferase (ALT/SG PT) Alkaline Phosphatase 200 H Total Protein 7.9 Albumin 3.7 Globulin 4.20 H Albumin/Globulin Ratio 0.88 Test 07/30/18 08:27 Bedside Glucose 169 Subjective 24 Hr Interval Summary Free Text/Dictation Patient states he's having difficulty bearing weight on his left leg due to pain. Also concerned about who will do dressing changes following discharge. Discussed HHPT being set up. Also complaining of dry cough that is causing shortness of breath. Denies any chest pain or palpitations at this time. Exam/Review of Systems Exam Vitals Vital Signs Date Temp Pulse Resp B/P (MAP) Pulse Ox O2 O2 Flow FiO2 Time Delivery Rate 07/30/18 83 17 89 Nasal 1.0 08:14 Cannula 07/30/18 98.2 146/76 07:15 (99) 07/28/18 27 01:54 Intake and Output 07/29/18 07/29/18 07/30/18 1515:00 23:00 07:00 IntakeIntake Total 980 ml 240 ml BalanceBalance 980 ml 240 ml Exam General: Patient is laying in bed. fatigued Neck: Supple Chest: sternal dressing in place. no discharge or drainage Respiratory: Clear to auscultation bilaterally. diminished, no wheezing or crackles Cardiovascular: regular rate and rhythm, no obvious murmurs Gastrointestinal: soft, non-tender to palpation, bowel sounds heard. no rebound or guarding Neurological: Moves all extremities spontaneously Skin: dressing on LLE clean and dry Results Results 24hrs Laboratory Tests Test 07/29/18 11:52 07/29/18 19:03 07/29/18 20:19 07/30/18 05:43 Bedside Glucose 148 144 136 Sodium Level 134 L Potassium Level 4.1 Chloride Level 95 L Carbon Dioxide Level 31 Anion Gap 8 Blood Urea Nitrogen 23 H Creatinine 0.87 Est Glomerular Filtrat > 60 Rate mL/min Glucose Level 209 Calcium Level 9.7 Phosphorus Level 3.7 Magnesium Level 1.8 Total Bilirubin 2.1 H Direct Bilirubin 0.10 Indirect Bilirubin 2.0 H Aspartate Amino 154 H Transf (AST/SGOT) Alanine 182 H Aminotransferase (ALT/SG PT) Alkaline Phosphatase 200 H Total Protein 7.9 Albumin 3.7 Globulin 4.20 H Albumin/Globulin Ratio 0.88 Test 07/30/18 08:27 Bedside Glucose 169 Medications Medication Current Medications IV Flush (NS 3 ml) 3 ml PER PROTOCOL IV ; Start 07/11/18 at 05:30 Ondansetron HCl (Zofran Inj) 4 mg Q6H PRN IV NAUSEA/VOMITING Last administered on 07/28/18 00:40; Admin Dose 4 MG; Start 07/11/18 at 05:30 Nitroglycerin (Nitroglycerin (Sl Tab) 0.4 Mg) 1 tab Q5M PRN SL .CHEST PAIN Last administered on 07/26/18 08:58; Admin Dose 1 TAB; Start 07/11/18 at 05:30 Acetaminophen (Tylenol Tab) 650 mg Q6H PRN PO .PAIN 1-3 OR TEMP Last administered on 07/24/18 12:11; Admin Dose 650 MG; Start 07/11/18 at 05:30 Atorvastatin Calcium (Lipitor) 40 mg HS PO Last administered on 07/29/18 20:20; Admin Dose 40 MG; Start 07/11/18 at 21:00 Simethicone (Mylicon) 80 mg QID PRN GTB DISTENSION/GAS/BLOATING Last adminis tered on 07/27/18 15:23; Admin Dose 80 MG; Start 07/13/18 at 12:30 Guaifenesin (Mucinex) 600 mg BID PO Last administered on 07/30/18 08:30; Admin Dose 600 MG; Start 07/15/18 at 10:30 Sodium Chloride (Deep Sea) 2 spray BID PRN NASAL congestion; Start 07/15/18 at 10:30 Potassium Chloride 50 ml @ 50 mls/hr SEE DIRECTION PRN IVPB K+ LEVEL Last administered on 07/21/18 13:44; Admin Dose 50 MLS/HR; Start 07/20/18 at 23:30 Magnesium Sulfate/ Dextrose 100 ml @ 100 mls/hr PRN PRN IVPB PENDING LAB [facility] LUE; Start 07/20/18 at 23:30 Midazolam HCl (Versed) 2 mg Q2H PRN IV AGITATION; Start 07/21/18 at 04:30 Acetaminophen (Tylenol Supp) 650 mg Q4H PRN [place] MILD PAIN(1-3) OR TEMP>38C Last administered on 07/23/18 17:29; Admin Dose 650 MG; Start 07/21/18 at 04:30 Albumin Human 250 ml @ 500 mls/hr PRN PRN IV CVP< 8, OR SBP<90 Last administered on 07/22/18 21:42; Admin Dose 500 MLS/HR; Start 07/21/18 at 08:00 Acetaminophen (Tylenol Liquid) 650 mg Q6 PRN NGT MILD PAIN(1-3)OR ELEVATED TEMP Last administered on 07/23/18 06:10; Admin Dose 650 MG; Start 07/21/18 at 09:00 Aspirin (Aspirin) 81 mg DAILY NGT Last administered on 07/30/18 08:30; Admin Dose 81 MG; Start 07/23/18 at 09:00 Enoxaparin Sodium (Lovenox) 30 mg DAILY SC Last administered on 07/30/18 08:37; Admin Dose 30 MG; Start 07/23/18 at 09:00 Albuterol/ Ipratropium (Duoneb) 3 ml Q6H RESP THERAPY HHN Last administered on 07/30/18 08:04; Admin Dose 3 ML; Start 07/24/18 at 02:00 Albuterol/ Ipratropium (Duoneb) 3 ml Q2H RESP THERAPY PRN HHN sob Last administered on 07/23/18 21:00; Admin Dose 3 ML; Start 07/23/18 at 20:30 Diagnostic Test (Pha) (Accu-Chek) 1 ea 02 XX Last administered on 07/29/18 02:08; Admin Dose 1 EA; Start 07/27/18 at 02:00 Insulin Glargine (Lantus) 25 units DAILY@0800 SC Last administered on 07/30/18 08:37; Admin Dose 25 UNITS; Start 07/27/18 at 08:00 Insulin Aspart (Novolog Insulin Pen) 12 unit WITH MEALS SC Last administered on 07/30/18 08:37; Admin Dose 12 UNIT; Start 07/26/18 at 11:30 Insulin Aspart (Novolog Insulin Pen) NOVOLOG *MODERATE* ALGORITHM WITH MEALS BEDTIME SC Last administered on 07/30/18 08:37; Admin Dose 2 UNIT; Start 07/26/18 at 11:30 Nitroglycerin/ Dextrose 250 ml @ 1.5 mls/hr TITRATE IV ; Start 07/26/18 at 08:30; Status Hold Miscellaneous Information 1 ea NOTE XX ; Start 07/26/18 at 08:30 Glucose (Glutose) 15 gm Q15M PRN PO DECREASED GLUCOSE; Start 07/26/18 at 08:30 Glucose (Glutose) 22.5 gm Q15M PRN PO DECREASED GLUCOSE; Start 07/26/18 at 08:30 Dextrose (D50w Syringe) 25 ml Q15M PRN IV DECREASED GLUCOSE; Start 07/26/18 at 08:30 Dextrose (D50w Syringe) 50 ml Q15M PRN IV DECREASED GLUCOSE; Start 07/26/18 at 08:30 Glucagon (Glucagen) 1 mg Q15M PRN IM DECREASED GLUCOSE; Start 07/26/18 at 08:30 Glucose (Glutose) 15 gm Q15M PRN BUCCAL DECREASED GLUCOSE; Start 07/26/18 at 08:30 Metoprolol Succinate (Toprol Xl) 50 mg DAILY PO Last administered on 07/30/18 08:29; Admin Dose 50 MG; Start 07/28/18 at 09:00 Hydralazine HCl (Apresoline) 10 mg Q4H PRN IV ELEVATED BLOOD PRESSURE Last administered on 07/27/18at 23:51; Admin Dose 10 MG; Start 07/28/18 at 00:00 Spironolactone (Aldactone) 25 mg DAILY PO Last administered on 07/30/18 08:30; Admin Dose 25 MG; Start 07/28/18 at 12:00 Morphine Sulfate (morphine) 3 mg Q4H PRN PO PAIN LEVEL 1-5; Start 07/28/18 at 23:45 Morphine Sulfate (morphine) 6 mg Q4H PRN PO PAIN LEVEL 6-10; Start 07/28/18 at 23:45 Bumetanide (Bumex) 1 mg DAILY PO Last administered on 07/30/18 08:29; Admin Dose 1 MG; Start 07/29/18 at 09:00 Lisinopril (Zestril) 20 mg BID PO Last administered on 07/30/18 08:30; Admin Dose 20 MG; Start 07/29/18 at 21:00 Pantoprazole (Protonix Tab) 40 mg DAILY@06 PO Last administered on 07/30/18 05:38; Admin Dose 40 MG; Start 07/30/18 at 06:00 KARINA MADDOX MD Jul 30, 2018 09:06
--- NOTE | 2018-07-30 09:48 | PN ---
DATE: 07/30/2018 SUBJECTIVE: The patient is stable, no events overnight. No fevers, chills, nausea, or vomiting. OBJECTIVE: VITAL SIGNS: Blood pressure is 147/76, pulse 83, respirations 20, temperature 98.2. HEENT: Head is normocephalic. NECK: Supple. HEART: Regular rate. LUNGS: Show diminished breath sounds at the base. ABDOMEN: Soft, nontender to palpation. No rebound or guarding. EXTREMITIES: Negative for clubbing, cyanosis, no edema. DERMATOLOGIC: No rashes. MUSCULOSKELETAL: No joint effusion. NEUROLOGIC: No change in exam. MEDICATIONS: Reviewed. LABORATORY DATA: Reviewed. ASSESSMENT AND PLAN: 1. Nonoliguric acute kidney injury with previous baseline creatinine of 0.9 mg/dL. Etiology of acut e kidney injury is secondary to hemodynamics. Renal function is improved. Continue current treatmen t plan. 2. Acute heart failure, improved. Continue current diuretic regimen. 3. Hypokalemia. Continue to monitor and replete. 4. Anemia. Monitor hemoglobin and hematocrit levels. 5. Mineral bone disorder, monitor calcium and phosphorus levels. 6. Coronary artery disease, status post coronary artery bypass graft. Continue current medical marina gement. 7. Diabetes. Continue current insulin regimen. 8. Systemic inflammatory response syndrome. 9. Status post respiratory failure. 10. Status post shock. Dictated By: MARCO ANTONIO BARRETT DO NR/NTS Conf#: [id number] DID#: [id number] CC: VANIA LAMB MD; SUZETTE SIMMONS MD; KARIAN MADDOX MD;*[facility]*
[2018-07-30] MEDS ORDERED: GUAIFENESIN/CODEINE 5ML CUP PO PRN (14:30)
--- NOTE | 2018-07-30 15:01 | CONS ---
Assessment/Plan Assessment/Plan Hospital Course (Demo Recall) No events, no fevers, looks comfortable Microbiology: All cultures have been negative Physical examination: Well-developed elderly man who is in no distress. Head atraumatic normocephalic. Sclera nonicteric. Buccal mucosa dry. Neck is supple, chest rise symmetrical, breath sounds diminished bases. Heart: S1-S2. Abdomen, distended, soft, bowel sounds present. Extremities with trace edema. Assessment: 1. Systemic inflammatory response syndrome, s/p postoperative fevers, likely pu lmonary source, possibly secondary to multiple lines 2. Multivessel coronary artery disease, status post CABG 3. Diabetes 4. Status post thymectomy 5. Acute kidney insufficiency 6. Pleural effusion, status post thoracentesis Plan: Remains stable, off antibiotics Consultation Date/Type/Reason Admit Date/Time Jul 11, 2018 at 04:15 Initial Consult Date 07/17/18 Type of Consult id Requesting Provider: VANIA LAMB MD Date/Time of Note DATE: 07/30/18 TIME: 15:01 Exam/Review of Systems Exam Vitals Vital Signs Date Temp Pulse Resp B/P (MAP) Pulse Ox O2 O2 Flow FiO2 Time Delivery Rate 07/30/18 77 16 96 13:37 07/30/18 2.0 13:37 07/30/18 98.0 108/59 Room Air 11:11 (75) 07/28/18 27 01:54 Intake and Output 07/29/18 07/29/18 07/30/18 1515:00 23:00 07:00 IntakeIntake Total 980 ml 240 ml BalanceBalance 980 ml 240 ml Results Result Diagram: 07/29/18 0531 07/30/18 0543 Results 24hrs Laboratory Tests Test 07/29/18 19:03 07/29/18 20:19 07/30/18 05:43 07/30/18 08:27 Bedside Glucose 144 136 169 Sodium Level 134 L Potassium Level 4.1 Chloride Level 95 L Carbon Dioxide 31 Level Anion Gap 8 Blood Urea 23 H Nitrogen Creatinine 0.87 Est Glomerular > 60 Filtrat Rate mL/min Glucose Level 209 Calcium Level 9.7 Phosphorus Level 3.7 Magnesium Level 1.8 Total Bilirubin 2.1 H Direct Bilirubin 0.10 Indirect Bilirubin 2.0 H Aspartate Amino 154 H Transf (AST/SGOT) Alanine 182 H Aminotransferase ( ALT/SGPT) Alkaline 200 H Phosphatase Total Protein 7.9 Albumin 3.7 Globulin 4.20 H Albumin/Globulin 0.88 Ratio Test 07/30/18 12:36 07/30/18 13:28 Bedside Glucose 168 Blood Gas Specimen Blood arterial Source Arterial Blood 07/30/2018 2:05:42 Date Drawn PM Arterial Blood pH 7.545 H (Temp corrected) Arterial Blood 33.9 L pCO2 (Temp correct) Arterial Blood pO2 61.5 L (Temp corrected) Arterial Blood 28.7 H HCO3 Arterial Blood 6.4 H Base Excess Arterial Blood 92.9 L Oxygen Saturation Tima Test ACCEPTAB Arterial Blood Gas Right Radial Puncture Site Arterial 0.6 Blood Carboxyhemog lobin Arterial Blood 0.2 Methemoglobin Blood Gas A-a O2 47.6 H Differential Oxyhemoglobin 92.2 L Percent Blood Gas 37.0 Temperature Blood Gas Modality ROOM AIR FiO2 21.0 Blood Gas Notified TM Whom Blood Gas Notified 07/30/2018 2:13:15 Time PM Medications Medication Current Medications IV Flush (NS 3 ml) 3 ml PER PROTOCOL IV ; Start 07/11/18 at 05:30 Ondansetron HCl (Zofran Inj) 4 mg Q6H PRN IV NAUSEA/VOMITING Last administered on 07/28/18 00:40; Admin Dose 4 MG; Start 07/11/18 at 05:30 Nitroglycerin (Nitroglycerin (Sl Tab) 0.4 Mg) 1 tab Q5M PRN SL .CHEST PAIN Last administered on 07/26/18 08:58; Admin Dose 1 TAB; Start 07/11/18 at 05:30 Acetaminophen (Tylenol Tab) 650 mg Q6H PRN PO .PAIN 1-3 OR TEMP Last administered on 07/24/18 12:11; Admin Dose 650 MG; Start 07/11/18 at 05:30 Atorvastatin Calcium (Lipitor) 40 mg HS PO Last administered on 07/29/18 20:20; Admin Dose 40 MG; Start 07/11/18 at 21:00 Simethicone (Mylicon) 80 mg QID PRN GTB DISTENSION/GAS/BLOATING Last administered on 07/27/18 15:23; Admin Dose 80 MG; Start 07/13/18 at 12:30 Guaifenesin (Mucinex) 600 mg BID PO Last administered on 07/30/18 08:30; Admin Dose 600 MG; Start 07/15/18 at 10:30 Sodium Chloride (Deep Sea) 2 spray BID PRN NASAL congestion; Start 07/15/18 at 10:30 Potassium Chloride 50 ml @ 50 mls/hr SEE DIRECTION PRN IVPB K+ LEVEL Last administered on 07/21/18 13:44; Admin Dose 50 MLS/HR; Start 07/20/18 at 23:30 Magnesium Sulfate/ Dextrose 100 ml @ 100 mls/hr PRN PRN IVPB PENDING LAB VALUE; Start 07/20/18 at 23:30 Midazolam HCl (Versed) 2 mg Q2H PRN IV AGITATION; Start 07/21/18 at 04:30 Acetaminophen (Tylenol Supp) 650 mg Q4H PRN [place] MILD PAIN(1-3) OR TEMP>38C Last administered on 07/23/18 17:29; Admin Dose 650 MG; Start 07/21/18 at 04:30 Albumin Human 250 ml @ 500 mls/hr PRN PRN IV CVP< 8, OR SBP<90 Last administered on 07/22/18 21:42; Admin Dose 500 MLS/HR; Start 07/21/18 at 08:00 Acetaminophen (Tylenol Liquid) 650 mg Q6 PRN NGT MILD PAIN(1-3)OR ELEVATED TEMP Last administered on 07/23/18 06:10; Admin Dose 650 MG; Start 07/21/18 at 09:00 Aspirin (Aspirin) 81 mg DAILY NGT Last administered on 07/30/18 08:30; Admin Dose 81 MG; Start 07/23/18 at 09:00 Enoxaparin Sodium (Lovenox) 30 mg DAILY SC Last administered on 07/30/18 08:37; Admin Dose 30 MG; Start 07/23/18 at 09:00 Albuterol/ Ipratropium (Duoneb) 3 ml Q6H RESP THERAPY HHN Last administered on 07/30/18 13:27; Admin Dose 3 ML; Start 07/24/18 at 02:00 Albuterol/ Ipratropium (Duoneb) 3 ml Q2H RESP THERAPY PRN HHN sob Last administered on 07/23/18 21:00; Admin Dose 3 ML; Start 07/23/18 at 20:30 Diagnostic Test (Pha) (Accu-Chek) 1 ea 02 XX Last administered on 07/29/18at 02:08; Admin Dose 1 EA; Start 07/27/18 at 02:00 Insulin Glargine (Lantus) 25 units DAILY@0800 SC Last administered on 07/30/18 08:37; Admin Dose 25 UNITS; Start 07/27/18 at 08:00 Insulin Aspart (Novolog Insulin Pen) 12 unit WITH MEALS SC Last administered on 07/30/18at 08:37; Admin Dose 12 UNIT; Start 07/26/18 at 11:30 Insulin Aspart (Novolog Insulin Pen) NOVOLOG *MODERATE* ALGORITHM WITH MEALS BEDTIME SC Last administered on 07/30/18 08:37; Admin Dose 2 UNIT; Start 07/26/18 at 11:30 Nitroglycerin/ Dextrose 250 ml @ 1.5 mls/hr TITRATE IV ; Start 07/26/18 at 08:30; Status Hold Miscellaneous Information 1 ea NOTE XX ; Start 07/26/18 at 08:30 Glucose (Glutose) 15 gm Q15M PRN PO DECREASED GLUCOSE; Start 07/26/18 at 08:30 Glucose (Glutose) 22.5 gm Q15M PRN PO DECREASED GLUCOSE; Start 07/26/18 at 08:30 Dextrose (D50w Syringe) 25 ml Q15M PRN IV DECREASED GLUCOSE; Start 07/26/18 at 08:30 Dextrose (D50w Syringe) 50 ml Q15M PRN IV DECREASED GLUCOSE; Start 07/26/18 at 08:30 Glucagon (Glucagen) 1 mg Q15M PRN IM DECREASED GLUCOSE; Start 07/26/18 at 08:30 Glucose (Glutose) 15 gm Q15M PRN BUCCAL DECREASED GLUCOSE; Start 07/26/18 at 08:30 Metoprolol Succinate (Toprol Xl) 50 mg DAILY PO Last administered on 07/30/18at 08:29; Admin Dose 50 MG; Start 07/28/18 at 09:00 Hydralazine HCl (Apresoline) 10 mg Q4H PRN IV ELEVATED BLOOD PRESSURE Last administered on 07/27/18at 23:51; Admin Dose 10 MG; Start 07/28/18 at 00:00 Spironolactone (Aldactone) 25 mg DAILY PO Last administered on 07/30/18 08:30; Admin Dose 25 MG; Start 07/28/18 at 12:00 Morphine Sulfate (morphine) 3 mg Q4H PRN PO PAIN LEVEL 1-5; Start 07/28/18 at 23:45 Morphine Sulfate (morphine) 6 mg Q4H PRN PO PAIN LEVEL 6-10; Start 07/28/18 at 23:45 Bumetanide (Bumex) 1 mg DAILY PO Last administered on 07/30/18at 08:29; Admin Dose 1 MG; Start 07/29/18 at 09:00 Lisinopril (Zestril) 20 mg BID PO Last administered on 07/30/18at 08:30; Admin Dose 20 MG; Start 07/29/18 at 21:00 Pantoprazole (Protonix Tab) 40 mg DAILY@06 PO Last administered on 07/30/18at 05:38; Admin Dose 40 MG; Start 07/30/18 at 06:00 Guaifenesin/ Codeine Phosphate (Robitussin Ac Liquid Cup) 5 ml Q4H PRN PO cough; Start 07/30/18 at 14:30 Benzonatate (Tessalon) 100 mg TID PRN PO cough; Start 07/30/18 at 14:30 KATHY LOU NP Jul 30, 2018 15:01
[2018-07-30] MEDS: ATORVASTATIN 40 MG TAB PO SCH (20:17)
[2018-07-31] VITALS (11 sets, daily range): BP systolic 102–145; BP diastolic 55–77; PULSE 56–96; RESP 17–20
[2018-07-31] MEDS: ALBUTEROL/IPRATROPIUM (NEB) 3 ML AMP HHN SCH ×4 (01:46→19:20)
[2018-07-31] MEDS: ACCU-CHEK XX SCH (02:00)
[2018-07-31] MEDS: PANTOPRAZOLE (EC) 40 MG TAB PO SCH (05:47)
[2018-07-31] MEDS: POLYETHYLENE GLYCOL 17 GM PACKET GTB SCH (06:51)
[2018-07-31] MEDS: DOCUSATE SODIUM 100 MG CAP PO SCH ×2 (06:51→20:09)
[2018-07-31] MEDS: BUMETANIDE 1 MG TAB PO SCH (08:00)
[2018-07-31] MEDS: LISINOPRIL 20 MG TAB PO SCH (08:00)
[2018-07-31] MEDS: GUAIFENESIN LA 600 MG TABSR PO SCH ×2 (08:00→20:09)
[2018-07-31] MEDS: ASPIRIN 81 MG TAB NGT SCH (08:00)
[2018-07-31] MEDS: SPIRONOLACTONE 25 MG TAB PO SCH (08:00)
[2018-07-31] MEDS: METOPROLOL (XL) 50 MG TAB PO SCH (08:01)
[2018-07-31] MEDS: INSULIN ASPART [NOVOLOG] 3 ML PEN SC SCH ×7 (08:05→20:11)
[2018-07-31] MEDS: INSULIN GLARGINE [LANTus] (100 UNITS/ML) SYG SC SCH (08:05)
[2018-07-31] MEDS: ENOXAPARIN 30 MG/0.3 ML SYG SC SCH (08:05)
--- NOTE | 2018-07-31 08:49 | PN ---
Date/Time of Note Date/Time of Note DATE: 07/31/18 TIME: 08:49 Assessment/Plan VTE Prophylaxis Risk score (from Nsg)>0 risk: 7 SCD applied (from Nsg): Yes Pharmacological prophylaxis: other Lines/Catheters IV Catheter Type (from Nrsg): Saline Lock Urinary Cath still in place: No Assessment/Plan Assessment/Plan 1. CAD with unstable angina s/p 3V CABG 07/20/18 - Patient still with cough that has been effecting his ability to eat, talk, and sleep - Cleared for discharge from CT surgery with follow up in 1 week - Cardiology on board and adjustments made to medications. Patient with dry cough and transition to ARB from ACEi. Appreciate recommendations 2. acute hypoxic resp distress - no need for home O2 per studies 3. HTN - continue current medications 4. Leukocytosis - ID on board and appreciate recommendations. d/c antibiotics - WBC normalized - cultures negative for acute bacterial infection 5. Uncontrolled diabetes - A1c at OSH noted to be 12.3 - Diabetic education consultation appreciated - Lantus and Novolog on board and sugars well controlled - Upon d/c will give Metformin/Jardiance, Basaglar and Novolog- per DM educator recommendation 6. Transaminitis- improving - denies any pain - US shows fatty liver - may be from congestion 7. Dysphagia - ST on board and appreciate consultation. now on soft diet 8. Disposition - consulted for HHPT - adjustments made to medications to help with dry cough - will need to monitor for improvement in cough given affecting speech, PO intake and sleep Result Diagram: 07/29/18 0531 07/31/18 0533 Results 24hrs Laboratory Tests Test 07/30/18 12:36 07/30/18 13:28 07/30/18 17:51 07/30/18 20:16 Bedside Glucose 168 150 113 Blood Gas Specimen Blood arterial Source Arterial Blood 07/30/2018 2:05:42 Date Drawn PM Arterial Blood pH 7.545 H (Temp corrected) Arterial Blood 33.9 L pCO2 (Temp correct) Arterial Blood pO2 61.5 L (Temp corrected) Arterial Blood 28.7 H HCO3 Arterial Blood 6.4 H Base Excess Arterial Blood 92.9 L Oxygen Saturation Tima Test ACCEPTAB Arterial Blood Gas Right Radial Puncture Site Arterial 0.6 Blood Carboxyhemog lobin Arterial Blood 0.2 Methemoglobin Blood Gas A-a O2 47.6 H Differential Oxyhemoglobin 92.2 L Percent Blood Gas 37.0 Temperature Blood Gas Modality ROOM AIR FiO2 21.0 Blood Gas Notified TM Whom Blood Gas Notified 07/30/2018 2:13:15 Time PM Test 07/31/18 05:33 07/31/18 07:48 Sodium Level 136 Potassium Level 3.9 Chloride Level 92 L Carbon Dioxide 32 H Level Anion Gap 12 Blood Urea 27 H Nitrogen Creatinine 1.02 Est Glomerular > 60 Filtrat Rate mL/min Glucose Level 202 Calcium Level 9.4 Phosphorus Level 4.4 Magnesium Level 1.8 Total Bilirubin 1.9 H Direct Bilirubin 0.00 Indirect Bilirubin 1.9 H Aspartate Amino 116 H Transf (AST/SGOT) Alanine 164 H Aminotransferase ( ALT/SGPT) Alkaline 198 H Phosphatase Total Protein 8.0 Albumin 3.6 Globulin 4.40 H Albumin/Globulin 0.81 Ratio Bedside Glucose 208 Subjective 24 Hr Interval Summary Free Text/Dictation [employer] Sales Representative services used. Patient complaining of dry cough with minimal phlegm that has been affecting his speech, ability to eat and causing respiratory issues. Denies any acute chest pain. Exam/Review of Systems Exam Vitals Vital Signs Date Temp Pulse Resp B/P (MAP) Pulse Ox O2 O2 Flow FiO2 Time Delivery Rate 07/31/18 94 08:13 07/31/18 16 96 Nasal 1.0 24 08:11 Cannula 07/31/18 98.1 139/76 07:42 (97) Intake and Output 07/30/18 07/30/18 07/31/18 1414:59 22:59 06:59 IntakeIntake Total 400 ml 240 ml BalanceBalance 400 ml 240 ml Exam General: Patient is in chair at bedside. dry cough noted with distress secondary to shortness of breath. worse with prolonged speaking Neck: Supple Chest: sternal dressing in place. no discharge or drainage Respiratory: Clear to auscultation bilaterally. diminished, no wheezing or crackles Cardiovascular: regular rate and rhythm, no obvious murmurs Gastrointestinal: soft, non-tender to palpation, bowel sounds heard. no rebound or guarding Neurological: Moves all extremities spontaneously Skin: dressing on LLE clean and dry Results Results 24hrs Laboratory Tests Test 07/30/18 12:36 07/30/18 13:28 07/30/18 17:51 07/30/18 20:16 Bedside Glucose 168 150 113 Blood Gas Specimen Blood arterial Source Arterial Blood 07/30/2018 2:05:42 Date Drawn PM Arterial Blood pH 7.545 H (Temp corrected) Arterial Blood 33.9 L pCO2 (Temp correct) Arterial Blood pO2 61.5 L (Temp corrected) Arterial Blood 28.7 H HCO3 Arterial Blood 6.4 H Base Excess Arterial Blood 92.9 L Oxygen Saturation Tima Test ACCEPTAB Arterial Blood Gas Right Radial Puncture Site Arterial 0.6 Blood Carboxyhemog lobin Arterial Blood 0.2 Methemoglobin Blood Gas A-a O2 47.6 H Differential Oxyhemoglobin 92.2 L Percent Blood Gas 37.0 Temperature Blood Gas Modality ROOM AIR FiO2 21.0 Blood Gas Notified TM Whom Blood Gas Notified 07/30/2018 2:13:15 Time PM Test 07/31/18 05:33 07/31/18 07:48 Sodium Level 136 Potassium Level 3.9 Chloride Level 92 L Carbon Dioxide 32 H Level Anion Gap 12 Blood Urea 27 H Nitrogen Creatinine 1.02 Est Glomerular > 60 Filtrat Rate mL/min Glucose Level 202 Calcium Level 9.4 Phosphorus Level 4.4 Magnesium Level 1.8 Total Bilirubin 1.9 H Direct Bilirubin 0.00 Indirect Bilirubin 1.9 H Aspartate Amino 116 H Transf (AST/SGOT) Alanine 164 H Aminotransferase ( ALT/SGPT) Alkaline 198 H Phosphatase Total Protein 8.0 Albumin 3.6 Globulin 4.40 H Albumin/Globulin 0.81 Ratio Bedside Glucose 208 Medications Medication Current Medications IV Flush (NS 3 ml) 3 ml PER PROTOCOL IV ; Start 07/11/18 at 05:30 Ondansetron HCl (Zofran Inj) 4 mg Q6H PRN IV NAUSEA/VOMITING Last administered on 07/28/18 00:40; Admin Dose 4 MG; Start 07/11/18 at 05:30 Nitroglycerin (Nitroglycerin (Sl Tab) 0.4 Mg) 1 tab Q5M PRN SL .CHEST PAIN Last administered on 07/26/18 08:58; Admin Dose 1 TAB; Start 07/11/18 at 05:30 Acetaminophen (Tylenol Tab) 650 mg Q6H PRN PO .PAIN 1-3 OR TEMP Last administered on 07/24/18 12:11; Admin Dose 650 MG; Start 07/11/18 at 05:30 Atorvastatin Calcium (Lipitor) 40 mg HS PO Last administered on 07/30/18 20:17; Admin Dose 40 MG; Start 07/11/18 at 21:00 Simethicone (Mylicon) 80 mg QID PRN GTB DISTENSION/GAS/BLOATING Last administered on 07/27/18 15:23; Admin Dose 80 MG; Start 07/13/18 at 12:30 Guaifenesin (Mucinex) 600 mg BID PO Last administered on 07/31/18 08:00; Admin Dose 600 MG; Start 07/15/18 at 10:30 Sodium Chloride (Deep Sea) 2 spray BID PRN NASAL congestion; Start 07/15/18 at 10:30 Potassium Chloride 50 ml @ 50 mls/hr SEE DIRECTION PRN IVPB K+ LEVEL Last administered on 07/21/18 13:44; Admin Dose 50 MLS/HR; Start 07/20/18 at 23:30 Magnesium Sulfate/ Dextrose 100 ml @ 100 mls/hr PRN PRN IVPB PENDING LAB VALUE; Start 07/20/18 at 23:30 Midazolam HCl (Versed) 2 mg Q2H PRN IV AGITATION; Start 07/21/18 at 04:30 Acetaminophen (Tylenol Supp) 650 mg Q4H PRN [place] MILD PAIN(1-3) OR TEMP>38C Last administered on 07/23/18 17:29; Admin Dose 650 MG; Start 07/21/18 at 04:30 Albumin Human 250 ml @ 500 mls/hr PRN PRN IV CVP< 8, OR SBP<90 Last administered on 07/22/18 21:42; Admin Dose 500 MLS/HR; Start 07/21/18 at 08:00 Acetaminophen (Tylenol Liquid) 650 mg Q6 PRN NGT MILD PAIN(1-3)OR ELEVATED TEMP Last administered on 07/23/18 06:10; Admin Dose 650 MG; Start 07/21/18 at 09:00 Aspirin (Aspirin) 81 mg DAILY NGT Last administered on 07/31/18 08:00; Admin D ose 81 MG; Start 07/23/18 at 09:00 Enoxaparin Sodium (Lovenox) 30 mg DAILY SC Last administered on 07/31/18 08:05; Admin Dose 30 MG; Start 07/23/18 at 09:00 Albuterol/ Ipratropium (Duoneb) 3 ml Q6H RESP THERAPY HHN Last administered on 07/31/18at 08:09; Admin Dose 3 ML; Start 07/24/18 at 02:00 Albuterol/ Ipratropium (Duoneb) 3 ml Q2H RESP THERAPY PRN HHN sob Last administered on 07/23/18at 21:00; Admin Dose 3 ML; Start 07/23/18 at 20:30 Diagnostic Test (Pha) (Accu-Chek) 1 ea 02 XX Last administered on 07/29/18at 02:08; Admin Dose 1 EA; Start 07/27/18 at 02:00 Insulin Glargine (Lantus) 25 units DAILY@0800 SC Last administered on 07/31/18at 08:05; Admin Dose 25 UNITS; Start 07/27/18 at 08:00 Insulin Aspart (Novolog Insulin Pen) 12 unit WITH MEALS SC Last administered on 07/31/18at 08:05; Admin Dose 12 UNIT; Start 07/26/18 at 11:30 Insulin Aspart (Novolog Insulin Pen) NOVOLOG *MODERATE* ALGORITHM WITH MEALS BEDTIME SC Last administered on 07/31/18 08:05; Admin Dose 4 UNIT; Start 07/26/18 at 11:30 Nitroglycerin/ Dextrose 250 ml @ 1.5 mls/hr TITRATE IV ; Start 07/26/18 at 08:30; Status Hold Miscellaneous Information 1 ea NOTE XX ; Start 07/26/18 at 08:30 Glucose (Glutose) 15 gm Q15M PRN PO DECREASED GLUCOSE; Start 07/26/18 at 08:30 Glucose (Glutose) 22.5 gm Q15M PRN PO DECREASED GLUCOSE; Start 07/26/18 at 08:30 Dextrose (D50w Syringe) 25 ml Q15M PRN IV DECREASED GLUCOSE; Start 07/26/18 at 08:30 Dextrose (D50w Syringe) 50 ml Q15M PRN IV DECREASED GLUCOSE; Start 07/26/18 at 08:30 Glucagon (Glucagen) 1 mg Q15M PRN IM DECREASED GLUCOSE; Start 07/26/18 at 08:30 Glucose (Glutose) 15 gm Q15M PRN BUCCAL DECREASED GLUCOSE; Start 07/26/18 at 08:30 Metoprolol Succinate (Toprol Xl) 50 mg DAILY PO Last administered on 07/31/18 08:01; Admin Dose 50 MG; Start 07/28/18 at 09:00 Hydralazine HCl (Apresoline) 10 mg Q4H PRN IV ELEVATED BLOOD PRESSURE Last administered on 07/27/18 23:51; Admin Dose 10 MG; Start 07/28/18 at 00:00 Spironolactone (Aldactone) 25 mg DAILY PO Last administered on 07/31/18 08:00; Admin Dose 25 MG; Start 07/28/18 at 12:00 Morphine Sulfate (morphine) 3 mg Q4H PRN PO PAIN LEVEL 1-5; Start 07/28/18 at 23:45 Morphine Sulfate (morphine) 6 mg Q4H PRN PO PAIN LEVEL 6-10; Start 07/28/18 at 23:45 Bumetanide (Bumex) 1 mg DAILY PO Last administered on 07/31/18 08:00; Admin Dose 1 MG; Start 07/29/18 at 09:00 Lisinopril (Zestril) 20 mg BID PO Last administered on 07/31/18 08:00; Admin Dose 20 MG; Start 07/29/18 at 21:00 Pantoprazole (Protonix Tab) 40 mg DAILY@06 PO Last administered on 07/31/18 05:47; Admin Dose 40 MG; Start 07/30/18 at 06:00 Guaifenesin/ Codeine Phosphate (Robitussin Ac Liquid Cup) 5 ml Q4H PRN PO cough; Start 07/30/18 at 14:30 Benzonatate (Tessalon) 100 mg TID PRN PO cough; Start 07/30/18 at 14:30 Docusate Sodium (Colace) 100 mg BID PO Last administered on 07/31/18 06:51; Admin Dose 100 MG; Start 07/31/18 at 07:00 Polyethylene Glycol (Miralax) 17 gm DAILY GTB Last administered on 07/31/18 06:51; Admin Dose 17 GM; Start 07/31/18 at 07:00 KARINA MADDOX MD Jul 31, 2018 08:49
--- NOTE | 2018-07-31 09:43 | PN ---
DATE: 07/31/2018 SUBJECTIVE: The patient is stable, no events overnight. No fevers, chills, nausea, or vomiting. OBJECTIVE: VITAL SIGNS: Blood pressure is 139/76, pulse 94, respirations 16, temperature 98.1. HEENT: Head is normocephalic. NECK: Supple. HEART: Regular rate. LUNGS: Show diminished breath sounds at the base. ABDOMEN: Soft, nontender to palpation without rebound or guarding. EXTREMITIES: Negative for clubbing, cyanosis, no edema. DERMATOLOGIC: No rashes. MUSCULOSKELETAL: No joint effusion. NEUROLOGIC: No change in exam. MEDICATIONS: Reviewed. LABORATORY DATA: Shows sodium 136, potassium 3.9, chloride 92, bicarbonate 32, BUN 27, creatinine 1. 02. ASSESSMENT AND PLAN: 1. Nonoliguric acute kidney injury with previous baseline creatinine of 0.9 mg/dL. Etiology of acut e kidney injury is secondary to hemodynamics. Renal function has improved. Continue current treatme nt plan, supportive care, renally dose all medicines. 2. Acute heart failure, improved. Continue to monitor. Continue medical management. 3. Hypokalemia, improved. 4. Anemia. Continue to monitor hemoglobin and hematocrit levels. 5. Mineral bone disorder, monitor calcium and phosphorus levels. 6. Coronary artery disease, status post coronary artery bypass graft. Continue current treatment pl an. 7. Diabetes. Continue current insulin regimen. 8. Systemic inflammatory response syndrome. 9. Status post shock. 10. Status post respiratory failure. Dictated By: MARCO ANTONIO BARRETT DO NR/NTS Conf#: [id number] DID#: [id number] CC: VANIA LAMB MD; KARINA MADDOX MD; SUZETTE SIMMONS MD;*EndCC*
[2018-07-31] MEDS: ACETAMINOPHEN 325 MG TAB PO PRN (09:53)
--- NOTE | 2018-07-31 10:42 | CONS ---
Consult Date/Type/Reason Admit Date/Time Jul 11, 2018 at 04:15 Initial Consult Date 07/17/18 Type of Consultation: CV Requesting Provider: VANIA LAMB MD Date/Time of Note DATE: 07/31/18 TIME: 10:40 Subjective Interventional cardiology follow-up progress note Subjective: Discussed with the staff and DR Ivan d/w Patient status post 3 v coronary artery bypass graft 07/20/2018. Patient on tele now less SOB today still mild chest wall pain with cough and breathing no PND orthopnea Objective: General: no acute distress HEENT: NC/AT. pupils are equal. round. NECK: . no stridor. Chest: Status post sternotomy, status post chest tube removed now CV: RRR. systolic murmur; no gallop or rubs. PULM: no wheezing minimal rhonchi GI: SOFT, NT, ND, no rebound or guarding Extremity: trace B/L LE edema. no clubbing. neuro: awake and responds appropriately Psych: calm and pleasant rectal: deferred : normal Echocardiogram done 07/11/2018 which was personally reviewed shows: Normal left ventricular systolic function. Normal left ventricular cavity size. Sigmoid septum. Ejection fraction is visually estimated at 55 %. Tissue Doppler/Mitral Doppler indices are consistent with impaired relaxation (Stage I diastolic dysfunction). Mild mitral leaflet calcification. Mild mitral annular calcification. Trace mitr al regurgitation. No significant aortic stenosis or insufficiency. Aortic cusps appear mildly calcified. Normal appearance of the tricuspid valve. Estimated peak PA systolic pressure 26 mmHg. There is trace tricuspid regurgitation. Objective Vitals Vital Signs Date Temp Pulse Resp B/P (MAP) Pulse Ox O2 O2 Flow FiO2 Time Delivery Rate 07/31/18 Nasal 1.0 08:51 Cannula 07/31/18 94 08:13 07/31/18 16 96 24 08:11 07/31/18 98.1 139/76 07:42 (97) Intake and Output 07/30/18 07/30/18 07/31/18 1515:00 23:00 07:00 IntakeIntake Total 400 ml 240 ml BalanceBalance 400 ml 240 ml Results/Medications Result Diagram: 07/29/18 0531 07/31/18 0533 Results 24 hrs Laboratory Tests Test 07/30/18 12:36 07/30/18 13:28 07/30/18 17:51 07/30/18 20:16 Bedside Glucose 168 150 113 Blood Gas Specimen Blood arterial Source Arterial Blood 07/30/2018 2:05:42 Date Drawn PM Arterial Blood pH 7.545 H (Temp corrected) Arterial Blood 33.9 L pCO2 (Temp correct) Arterial Blood pO2 61.5 L (Temp corrected) Arterial Blood 28.7 H HCO3 Arterial Blood 6.4 H Base Excess Arterial Blood 92.9 L Oxygen Saturation Tima Test ACCEPTAB Arterial Blood Gas Right Radial Puncture Site Arterial 0.6 Blood Carboxyhemog lobin Arterial Blood 0.2 Methemoglobin Blood Gas A-a O2 47.6 H Differential Oxyhemoglobin 92.2 L Percent Blood Gas 37.0 Temperature Blood Gas Modality ROOM AIR FiO2 21.0 Blood Gas Notified TM Whom Blood Gas Notified 07/30/2018 2:13:15 Time PM Test 07/31/18 05:33 07/31/18 07:48 Sodium Level 136 Potassium Level 3.9 Chloride Level 92 L Carbon Dioxide 32 H Level Anion Gap 12 Blood Urea 27 H Nitrogen Creatinine 1.02 Est Glomerular > 60 Filtrat Rate mL/min Glucose Level 202 Calcium Level 9.4 Phosphorus Level 4.4 Magnesium Level 1.8 Total Bilirubin 1.9 H Direct Bilirubin 0.00 Indirect Bilirubin 1.9 H Aspartate Amino 116 H Transf (AST/SGOT) Alanine 164 H Aminotransferase ( ALT/SGPT) Alkaline 198 H Phosphatase Total Protein 8.0 Albumin 3.6 Globulin 4.40 H Albumin/Globulin 0.81 Ratio Bedside Glucose 208 Medications Current Medications IV Flush (NS 3 ml) 3 ml PER PROTOCOL IV ; Start 07/11/18 at 05:30 Ondansetron HCl (Zofran Inj) 4 mg Q6H PRN IV NAUSEA/VOMITING Last administered on 07/28/18 00:40; Admin Dose 4 MG; Start 07/11/18 at 05:30 Nitroglycerin (Nitroglycerin (Sl Tab) 0.4 Mg) 1 tab Q5M PRN SL .CHEST PAIN Last administered on 07/26/18 08:58; Admin Dose 1 TAB; Start 07/11/18 at 05:30 Acetaminophen (Tylenol Tab) 650 mg Q6H PRN PO .PAIN 1-3 OR TEMP Last administered on 07/31/18 09:53; Admin Dose 650 MG; Start 07/11/18 at 05:30 Atorvastatin Calcium (Lipitor) 40 mg HS PO Last administered on 07/30/18 20:17; Admin Dose 40 MG; Start 07/11/18 at 21:00 Simethicone (Mylicon) 80 mg QID PRN GTB DISTENSION/GAS/BLOATING Last administered on 07/27/18 15:23; Admin Dose 80 MG; Start 07/13/18 at 12:30 Guaifenesin (Mucinex) 600 mg BID PO Last administered on 07/31/18 08:00; Admin Dose 600 MG; Start 07/15/18 at 10:30 Sodium Chloride (Deep Sea) 2 spray BID PRN NASAL congestion; Start 07/15/18 at 10:30 Potassium Chloride 50 ml @ 50 mls/hr SEE DIRECTION PRN IVPB K+ LEVEL Last admini stered on 07/21/18 13:44; Admin Dose 50 MLS/HR; Start 07/20/18 at 23:30 Magnesium Sulfate/ Dextrose 100 ml @ 100 mls/hr PRN PRN IVPB PENDING LAB VALUE; Start 07/20/18 at 23:30 Midazolam HCl (Versed) 2 mg Q2H PRN IV AGITATION; Start 07/21/18 at 04:30 Acetaminophen (Tylenol Supp) 650 mg Q4H PRN [place] MILD PAIN(1-3) OR TEMP>38C Last administered on 07/23/18 17:29; Admin Dose 650 MG; Start 07/21/18 at 04:30 Albumin Human 250 ml @ 500 mls/hr PRN PRN IV CVP< 8, OR SBP<90 Last administered on 07/22/18 21:42; Admin Dose 500 MLS/HR; Start 07/21/18 at 08:00 Acetaminophen (Tylenol Liquid) 650 mg Q6 PRN NGT MILD PAIN(1-3)OR ELEVATED TEMP Last administered on 07/23/18 06:10; Admin Dose 650 MG; Start 07/21/18 at 09:00 Aspirin (Aspirin) 81 mg DAILY NGT Last administered on 07/31/18 08:00; Admin Dose 81 MG; Start 07/23/18 at 09:00 Enoxaparin Sodium (Lovenox) 30 mg DAILY SC Last administered on 07/31/18 08:05; Admin Dose 30 MG; Start 07/23/18 at 09:00 Albuterol/ Ipratropium (Duoneb) 3 ml Q6H RESP THERAPY HHN Last administered on 07/31/18at 08:09; Admin Dose 3 ML; Start 07/24/18 at 02:00 Albuterol/ Ipratropium (Duoneb) 3 ml Q2H RESP THERAPY PRN HHN sob Last administered on 07/23/18at 21:00; Admin Dose 3 ML; Start 07/23/18 at 20:30 Diagnostic Test (Pha) (Accu-Chek) 1 ea 02 XX Last administered on 07/29/18at 02:08; Admin Dose 1 EA; Start 07/27/18 at 02:00 Insulin Glargine (Lantus) 25 units DAILY@0800 SC Last administered on 07/31/18at 08:05; Admin Dose 25 UNITS; Start 07/27/18 at 08:00 Insulin Aspart (Novolog Insulin Pen) 12 unit WITH MEALS SC Last administered on 07/31/18at 08:05; Admin Dose 12 UNIT; Start 07/26/18 at 11:30 Insulin Aspart (Novolog Insulin Pen) NOVOLOG *MODERATE* ALGORITHM WITH MEALS BEDTIME SC Last administered on 07/31/18at 08:05; Admin Dose 4 UNIT; Start 07/26/18 at 11:30 Nitroglycerin/ Dextrose 250 ml @ 1.5 mls/hr TITRATE IV ; Start 07/26/18 at 08:30; Status Hold Miscellaneous Information 1 ea NOTE XX ; Start 07/26/18 at 08:30 Glucose (Glutose) 15 gm Q15M PRN PO DECREASED GLUCOSE; Start 07/26/18 at 08:30 Glucose (Glutose) 22.5 gm Q15M PRN PO DECREASED GLUCOSE; Start 07/26/18 at 08:30 Dextrose (D50w Syringe) 25 ml Q15M PRN IV DECREASED GLUCOSE; Start 07/26/18 at 08:30 Dextrose (D50w Syringe) 50 ml Q15M PRN IV DECREASED GLUCOSE; Start 07/26/18 at 08:30 Glucagon (Glucagen) 1 mg Q15M PRN IM DECREASED GLUCOSE; Start 07/26/18 at 08:30 Glucose (Glutose) 15 gm Q15M PRN BUCCAL DECREASED GLUCOSE; Start 07/26/18 at 08:30 Metoprolol Succinate (Toprol Xl) 50 mg DAILY PO Last administered on 07/31/18 08:01; Admin Dose 50 MG; Start 07/28/18 at 09:00 Hydralazine HCl (Apresoline) 10 mg Q4H PRN IV ELEVATED BLOOD PRESSURE Last administered on 07/27/18 23:51; Admin Dose 10 MG; Start 07/28/18 at 00:00 Spironolactone (Aldactone) 25 mg DAILY PO Last administered on 07/31/18 08:00; Admin Dose 25 MG; Start 07/28/18 at 12:00 Morphine Sulfate (morphine) 3 mg Q4H PRN PO PAIN LEVEL 1-5; Start 07/28/18 at 23:45 Morphine Sulfate (morphine) 6 mg Q4H PRN PO PAIN LEVEL 6-10; Start 07/28/18 at 23:45 Bumetanide (Bumex) 1 mg DAILY PO Last administered on 07/31/18at 08:00; Admin Dose 1 MG; Start 07/29/18 at 09:00 Lisinopril (Zestril) 20 mg BID PO Last administered on 07/31/18 08:00; Admin Dose 20 MG; Start 07/29/18 at 21:00 Pantoprazole (Protonix Tab) 40 mg DAILY@06 PO Last administered on 07/31/18at 05:47; Admin Dose 40 MG; Start 07/30/18 at 06:00 Guaifenesin/ Codeine Phosphate (Robitussin Ac Liquid Cup) 5 ml Q4H PRN PO cough; Start 07/30/18 at 14:30 Benzonatate (Tessalon) 100 mg TID PRN PO cough; Start 07/30/18 at 14:30 Docusate Sodium (Colace) 100 mg BID PO Last administered on 07/31/18 06:51; Admin Dose 100 MG; Start 07/31/18 at 07:00 Polyethylene Glycol (Miralax) 17 gm DAILY GTB Last administered on 07/31/18 06:51; Admin Dose 17 GM; Start 07/31/18 at 07:00 Assessment/Plan Hospital Course (Demo Recall) 1. Unstable angina 2. Multivessel coronary artery disease 3. 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 Diabetes 5. History of hypertension 6. Anemia 7. Postop respiratory failure currently intubated 8. POST OP FEVER : improved 9. elevated LFT: will defer to IM team Recommendations: Respiratory care will be continued managed as per pulm. cont lisinopril and toprol asa daily abx as per ID rec on PPI for GI prophylaxis Lovenox for DVT prophylaxis as well replace lytes PRN dc planning when ok with CT surgery and IM Thank you for his referral. We will continue to follow along with you on as nee ded basis SEAN NOGUERA MD [facility] SEAN NOGUERA MD Jul 31, 2018 10:42
[2018-07-31] MEDS: BENZONATATE 100 MG CAP PO PRN (16:04)
[2018-07-31] MEDS: ATORVASTATIN 40 MG TAB PO SCH (20:09)
[2018-08-01] VITALS (11 sets, daily range): BP systolic 101–139; BP diastolic 59–76; PULSE 66–96; RESP 18–72
[2018-08-01] MEDS: ALBUTEROL/IPRATROPIUM (NEB) 3 ML AMP HHN SCH ×3 (01:20→13:07)
[2018-08-01] MEDS: ACCU-CHEK XX SCH (02:00)
[2018-08-01] MEDS: PANTOPRAZOLE (EC) 40 MG TAB PO SCH (06:04)
[2018-08-01] MEDS: BENZONATATE 100 MG CAP PO PRN (06:21)
[2018-08-01] MEDS: INSULIN ASPART [NOVOLOG] 3 ML PEN SC SCH ×7 (08:00→20:18)
[2018-08-01] MEDS: GUAIFENESIN LA 600 MG TABSR PO SCH ×2 (08:39→20:13)
--- NOTE | 2018-08-01 08:39 | PN ---
Date/Time of Note Date/Time of Note DATE: 08/01/18 TIME: 08:39 Assessment/Plan VTE Prophylaxis Risk score (from Nsg)>0 risk: 6 SCD applied (from Nsg): Yes Pharmacological prophylaxis: other Lines/Catheters IV Catheter Type (from Nrsg): Saline Lock Urinary Cath still in place: No Assessment/Plan Assessment/Plan 1. CAD with unstable angina s/p 3V CABG 07/20/18 - Cough still persists but only worse with prolonged speech - Cleared for discharge from CT surgery with follow up in 1 week - Cardiology on board and adjustments made to medications. vitals remain stable 2. acute hypoxic resp distress - no need for home O2 per studies 3. HTN - continue current medications 4. Leukocytosis - ID on board and appreciate recommendations. d/c antibiotics - WBC normalized - cultures negative for acute bacterial infection 5. Uncontrolled diabetes - A1c at OSH noted to be 12.3 - Diabetic education consultation appreciated - Lantus and Novolog on board and adjustments made while inpatient. he has not been eating well due to dislike of hospital food and only eating fruit cups and pastries which has been driving up his sugars. Normally sugars are well controlled - Upon d/c will give Metformin/Jardiance, Basaglar and Novolog- per DM educator recommendation 6. Transaminitis- improving - denies any pain - US shows fatty liver - may be from congestion as well 7. Dysphagia - ST on board and appreciate consultation. now on soft diet 8. Disposition - consulted for HHPT - Once tolerating more PO and cough is stable, will d/c home Result Diagram: 07/29/18 0531 07/31/18 0533 Results 24hrs Laboratory Tests Test 07/31/18 12:10 07/31/18 17:19 07/31/18 20:10 07/31/18 21:06 Bedside Glucose 124 109 57 L 76 Test 07/31/18 21:51 08/01/18 07:43 Bedside Glucose 117 177 Subjective 24 Hr Interval Summary Free Text/Dictation Patient with fluctuations in glucose level since does not like hospital food and continues to eat foods high in sugar. Still with dry cough and discomfort when talking and eating. Exam/Review of Systems Exam Vitals Vital Signs Date Temp Pulse Resp B/P (MAP) Pulse Ox O2 O2 Flow FiO2 Time Delivery Rate 08/01/18 92 21 07:30 08/01/18 87 18 07:30 08/01/18 98.3 139/76 Room Air 07:30 (97) 07/31/18 1.0 14:39 Intake and Output 07/31/18 07/31/18 08/01/18 1515:00 23:00 07:00 IntakeIntake Total 1800 ml 720 ml BalanceBalance 1800 ml 720 ml Exam General: Patient is laying in bed. SOB with prolonged talking Neck: Supple Chest: sternal dressing in place. no discharge or drainage Respiratory: Clear to auscultation bilaterally. diminished, no wheezing or crackles Cardiovascular: regular rate and rhythm, no obvious murmurs Gastrointestinal: soft, non-tender to palpation, bowel sounds heard. no rebound or guarding Neurological: Moves all extremities spontaneously Skin: dressing on LLE clean and dry Results Results 24hrs Laboratory Tests Test 07/31/18 12:10 07/31/18 17:19 07/31/18 20:10 07/31/18 21:06 Bedside Glucose 124 109 57 L 76 Test 07/31/18 21:51 08/01/18 07:43 Bedside Glucose 117 177 Medications Medication Current Medications IV Flush (NS 3 ml) 3 ml PER PROTOCOL IV ; Start 07/11/18 at 05:30 Ondansetron HCl (Zofran Inj) 4 mg Q6H PRN IV NAUSEA/VOMITING Last administered on 07/28/18 00:40; Admin Dose 4 MG; Start 07/11/18 at 05:30 Nitroglycerin (Nitroglycerin (Sl Tab) 0.4 Mg) 1 tab Q5M PRN SL .CHEST PAIN Last administered on 07/26/18 08:58; Admin Dose 1 TAB; Start 07/11/18 at 05:30 Acetaminophen (Tylenol Tab) 650 mg Q6H PRN PO .PAIN 1-3 OR TEMP Last a dministered on 07/31/18 09:53; Admin Dose 650 MG; Start 07/11/18 at 05:30 Atorvastatin Calcium (Lipitor) 40 mg HS PO Last administered on 07/31/18 20:09; Admin Dose 40 MG; Start 07/11/18 at 21:00 Simethicone (Mylicon) 80 mg QID PRN GTB DISTENSION/GAS/BLOATING Last administered on 07/27/18 15:23; Admin Dose 80 MG; Start 07/13/18 at 12:30 Guaifenesin (Mucinex) 600 mg BID PO Last administered on 07/31/18 20:09; Admin Dose 600 MG; Start 07/15/18 at 10:30 Sodium Chloride (Deep Sea) 2 spray BID PRN NASAL congestion; Start 07/15/18 at 10:30 Potassium Chloride 50 ml @ 50 mls/hr SEE DIRECTION PRN IVPB K+ LEVEL Last administered on 07/21/18at 13:44; Admin Dose 50 MLS/HR; Start 07/20/18 at 23:30 Magnesium Sulfate/ Dextrose 100 ml @ 100 mls/hr PRN PRN IVPB PENDING LAB VALUE; Start 07/20/18 at 23:30 Midazolam HCl (Versed) 2 mg Q2H PRN IV AGITATION; Start 07/21/18 at 04:30 Acetaminophen (Tylenol Supp) 650 mg Q4H PRN VA MILD PAIN(1-3) OR TEMP>38C Last administered on 07/23/18 17:29; Admin Dose 650 MG; Start 07/21/18 at 04:30 Albumin Human 250 ml @ 500 mls/hr PRN PRN IV CVP< 8, OR SBP<90 Last administered on 07/22/18 21:42; Admin Dose 500 MLS/HR; Start 07/21/18 at 08:00 Acetaminophen (Tylenol Liquid) 650 mg Q6 PRN NGT MILD PAIN(1-3)OR ELEVATED TEMP Last administered on 07/23/18 06:10; Admin Dose 650 MG; Start 07/21/18 at 09:00 Aspirin (Aspirin) 81 mg DAILY NGT Last administered on 07/31/18 08:00; Admin Dose 81 MG; Start 07/23/18 at 09:00 Enoxaparin Sodium (Lovenox) 30 mg DAILY SC Last administered on 07/31/18 08:05; Admin Dose 30 MG; Start 07/23/18 at 09:00 Albuterol/ Ipratropium (Duoneb) 3 ml Q6H RESP THERAPY HHN Last administered on 08/01/18 07:29; Admin Dose 3 ML; Start 07/24/18 at 02:00 Albuterol/ Ipratropium (Duoneb) 3 ml Q2H RESP THERAPY PRN HHN sob Last administ ered on 07/23/18at 21:00; Admin Dose 3 ML; Start 07/23/18 at 20:30 Diagnostic Test (Pha) (Accu-Chek) 1 ea 02 XX Last administered on 07/29/18at 02:08; Admin Dose 1 EA; Start 07/27/18 at 02:00 Insulin Aspart (Novolog Insulin Pen) 12 unit WITH MEALS SC Last administered on 07/31/18 17:24; Admin Dose 12 UNIT; Start 07/26/18 at 11:30 Insulin Aspart (Novolog Insulin Pen) NOVOLOG *MODERATE* ALGORITHM WITH MEALS BEDTIME SC Last administered on 07/31/18 08:05; Admin Dose 4 UNIT; Start 07/26/18 at 11:30 Nitroglycerin/ Dextrose 250 ml @ 1.5 mls/hr TITRATE IV ; Start 07/26/18 at 08:30; Status Hold Miscellaneous Information 1 ea NOTE XX ; Start 07/26/18 at 08:30 Glucose (Glutose) 15 gm Q15M PRN PO DECREASED GLUCOSE; Start 07/26/18 at 08:30 Glucose (Glutose) 22.5 gm Q15M PRN PO DECREASED GLUCOSE; Start 07/26/18 at 08:30 Dextrose (D50w Syringe) 25 ml Q15M PRN IV DECREASED GLUCOSE; Start 07/26/18 at 08:30 Dextrose (D50w Syringe) 50 ml Q15M PRN IV DECREASED GLUCOSE; Start 07/26/18 at 08:30 Glucagon (Glucagen) 1 mg Q15M PRN IM DECREASED GLUCOSE; Start 07/26/18 at 08:30 Glucose (Glutose) 15 gm Q15M PRN BUCCAL DECREASED GLUCOSE; Start 07/26/18 at 08:30 Metoprolol Succinate (Toprol Xl) 50 mg DAILY PO Last administered on 07/31/18 08:01; Admin Dose 50 MG; Start 07/28/18 at 09:00 Hydralazine HCl (Apresoline) 10 mg Q4H PRN IV ELEVATED BLOOD PRESSURE Last administered on 07/27/18at 23:51; Admin Dose 10 MG; Start 07/28/18 at 00:00 Spironolactone (Aldactone) 25 mg DAILY PO Last administered on 07/31/18 08:00; Admin Dose 25 MG; Start 07/28/18 at 12:00 Morphine Sulfate (morphine) 3 mg Q4H PRN PO PAIN LEVEL 1-5; Start 07/28/18 at 23:45 Morphine Sulfate (morphine) 6 mg Q4H PRN PO PAIN LEVEL 6-10; Start 07/28/18 at 23:45 Bumetanide (Bumex) 1 mg DAILY PO Last administered on 07/31/18at 08:00; Admin Dose 1 MG; Start 07/29/18 at 09:00 Pantoprazole (Protonix Tab) 40 mg DAILY@06 PO Last administered on 08/01/18at 06:04; Admin Dose 40 MG; Start 07/30/18 at 06:00 Guaifenesin/ Codeine Phosphate (Robitussin Ac Liquid Cup) 5 ml Q4H PRN PO cough; Start 07/30/18 at 14:30 Benzonatate (Tessalon) 100 mg TID PRN PO cough Last administered on 08/01/18at 06:21; Admin Dose 100 MG; Start 07/30/18 at 14:30 Docusate Sodium (Colace) 100 mg BID PO Last administered on 07/31/18at 20:09; Admin Dose 100 MG; Start 07/31/18 at 07:00 Polyethylene Glycol (Miralax) 17 gm DAILY GTB Last administered on 07/31/18at 06:51; Admin Dose 17 GM; Start 07/31/18 at 07:00 Losartan Potassium (Cozaar) 25 mg DAILY PO ; Start 08/01/18 at 09:00 Insulin Glargine (Lantus) 22 units DAILY@0800 SC ; Start 08/02/18 at 08:00; Status KARINA BAEZ MD Aug 01, 2018 08:39
[2018-08-01] MEDS: METOPROLOL (XL) 50 MG TAB PO SCH (08:40)
[2018-08-01] MEDS: ACETAMINOPHEN 325 MG TAB PO PRN (08:40)
[2018-08-01] MEDS: LOSARTAN 25 MG TAB PO SCH (08:41)
[2018-08-01] MEDS: BUMETANIDE 1 MG TAB PO SCH (08:41)
[2018-08-01] MEDS: ASPIRIN 81 MG TAB NGT SCH (08:41)
[2018-08-01] MEDS: DOCUSATE SODIUM 100 MG CAP PO SCH ×2 (08:41→20:13)
[2018-08-01] MEDS: SPIRONOLACTONE 25 MG TAB PO SCH (08:42)
[2018-08-01] MEDS: POLYETHYLENE GLYCOL 17 GM PACKET GTB SCH (08:42)
[2018-08-01] MEDS: ENOXAPARIN 30 MG/0.3 ML SYG SC SCH (09:02)
[2018-08-01] MEDS: INSULIN GLARGINE [LANTus] (100 UNITS/ML) SYG SC SCH (10:44)
--- NOTE | 2018-08-01 11:00 | PN ---
DATE: 08/01/2018 DATE OF SERVICE: 08/01/2018 SUBJECTIVE: The patient is stable, no events overnight. Patient continues to have a cough. OBJECTIVE: VITAL SIGNS: Blood pressure is 139/76, respiration 18, pulse is 72, temperature 98.3. HEENT: Head is normocephalic. NECK: Supple. HEART: Regular rate. LUNGS: Show diminished breath sounds at the base. ABDOMEN: Soft, nontender to palpation without rebound or guarding. EXTREMITIES: Negative for clubbing, cyanosis, no edema. DERMATOLOGIC: No rashes. MUSCULOSKELETAL: No joint effusion. NEUROLOGIC: No change in exam. MEDICATIONS: Reviewed. LABORATORY DATA: Reviewed. ASSESSMENT AND PLAN: 1. Nonoliguric acute kidney injury with previous baseline creatinine of 0.9 mg/dL. Etiology again s econdary to hemodynamics. Renal function is improved. Continue current treatment plan. 2. Acute heart failure, improved. Continue current medical management. 3. Hyperkalemia, resolved. 4. Anemia. Continue to monitor hemoglobin and hematocrit levels. 5. Mineral bone disorder, monitor calcium and phosphorus levels. 6. Coronary artery disease, status post coronary artery bypass graft. Continue current medical marina gement. 7. Diabetes. Continue insulin regimen. 8. Status post respiratory failure. 9. Status post shock. 10. Cough. Etiology may be secondary to recent coronary artery bypass graft. Continue to monitor. The patient is completing course of antibiotics. Dictated By: MARCO ANTONIO BARRETT DO NR/NTS Conf#: [id number] DID#: [id number] CC: KARINA MADDOX MD; MARCO ANTONIO BARRETT DO;*EndCC*
--- NOTE | 2018-08-01 16:38 | CONS ---
Consult Date/Type/Reason Admit Date/Time Jul 11, 2018 at 04:15 Initial Consult Date 07/17/18 Type of Consultation: CV Requesting Provider: VANIA LAMB MD Date/Time of Note DATE: 08/01/18 TIME: 16:38 Subjective Interventional cardiology follow-up progress note Subjective: Discussed with the staff and Patient status post 3 v coronary artery bypass graft 07/20/2018. Patient on tele now less SOB today still c/o cough Objective: General: no acute distress HEENT: NC/AT. pupils are equal. round. NECK: . no stridor. Chest: Status post sternotomy, status post chest tube removed now CV: RRR. systolic murmur; no gallop or rubs. PULM: no wheezing minimal rhonchi GI: SOFT, NT, ND, no rebound or guarding Extremity: trace B/L LE edema. no clubbing. neuro: awake and responds appropriately Psych: calm and pleasant rectal: deferred : normal Echocardiogram done 07/11/2018 which was personally reviewed shows: Normal left ventricular systolic function. Normal left ventricular cavity size. Sigmoid septum. Ejection fraction is visually estimated at 55 %. Tissue Doppler/Mitral Doppler indices are consistent with impaired relaxation (Stage I diastolic dysfunction). Mild mitral leaflet calcification. Mild mitral annular calcification. Trace mitral regurgitation. No significant aortic stenosis or insufficiency. Aortic cusps appear mildly calcified. Normal appearance of the tricuspid valve. Estimated peak PA systolic pressure 26 mmHg. There is trace tricuspid regurgitation. Objective Vitals Vital Signs Date Temp Pulse Resp B/P (MAP) Pulse Ox O2 O2 Flow FiO2 Time Delivery Rate 08/01/18 97.7 90 20 111/60 96 Room Air 16:04 (77) 08/01/18 21 13:08 07/31/18 1.0 14:39 Intake and Output 07/31/18 07/31/18 08/01/18 1515:00 23:00 07:00 IntakeIntake Total 1800 ml 720 ml BalanceBalance 1800 ml 720 ml Results/Medications Result Diagram: 07/29/18 0531 07/31/18 0533 Results 24 hrs Laboratory Tests Test 07/31/18 17:19 07/31/18 20:10 07/31/18 21:06 07/31/18 21:51 Bedside Glucose 109 57 L 76 117 Test 08/01/18 07:43 08/01/18 11:51 08/01/18 13:30 Bedside Glucose 177 298 H 323 H Medications Current Medications IV Flush (NS 3 ml) 3 ml PER PROTOCOL IV ; Start 07/11/18 at 05:30 Ondansetron HCl (Zofran Inj) 4 mg Q6H PRN IV NAUSEA/VOMITING Last administered on 07/28/18 00:40; Admin Dose 4 MG; Start 07/11/18 at 05:30 Nitroglycerin (Nitroglycerin (Sl Tab) 0.4 Mg) 1 tab Q5M PRN SL .CHEST PAIN Last administered on 07/26/18 08:58; Admin Dose 1 TAB; Start 07/11/18 at 05:30 Atorvastatin Calcium (Lipitor) 40 mg HS PO Last administered on 07/31/18 20:09; Admin Dose 40 MG; Start 07/11/18 at 21:00 Simethicone (Mylicon) 80 mg QID PRN GTB DISTENSION/GAS/BLOATING Last administered on 07/27/18 15:23; Admin Dose 80 MG; Start 07/13/18 at 12:30 Guaifenesin (Mucinex) 600 mg BID PO Last administered on 08/01/18 08:39; Admin Dose 600 MG; Start 07/15/18 at 10:30 Sodium Chloride (Deep Sea) 2 spray BID PRN NASAL congestion; Start 07/15/18 at 10:30 Potassium Chloride 50 ml @ 50 mls/hr SEE DIRECTION PRN IVPB K+ LEVEL Last administered on 07/21/18 13:44; Admin Dose 50 MLS/HR; Start 07/20/18 at 23:30 Magnesium Sulfate/ Dextrose 100 ml @ 100 mls/hr PRN PRN IVPB PENDING LAB VALUE; Start 07/20/18 at 23:30 Midazolam HCl (Versed) 2 mg Q2H PRN IV AGITATION; Start 07/21/18 at 04:30 Acetaminophen (Tylenol Liquid) 650 mg Q6 PRN NGT MILD PAIN(1-3)OR ELEVATED TEMP Last administered on 07/23/18 06:10; Admin Dose 650 MG; Start 07/21/18 at 09:00 Aspirin (Aspirin) 81 mg DAILY NGT Last administered on 08/01/18 08:41; Admin Dose 81 MG; Start 07/23/18 at 09:00 Enoxaparin Sodium (Lovenox) 30 mg DAILY SC Last administered on 08/01/18at 09:02; Admin Dose 30 MG; Start 07/23/18 at 09:00 Albuterol/ Ipratropium (Duoneb) 3 ml Q2H RESP THERAPY PRN HHN sob Last administered on 07/23/18at 21:00; Admin Dose 3 ML; Start 07/23/18 at 20:30 Insulin Aspart (Novolog Insulin Pen) NOVOLOG *MODERATE* ALGORITHM WITH MEALS BEDTIME SC Last administered on 08/01/18at 14:03; Admin Dose 10 UNIT; Start 07/26/18 at 11:30 Miscellaneous Information 1 ea NOTE XX ; Start 07/26/18 at 08:30 Glucose (Glutose) 15 gm Q15M PRN PO DECREASED GLUCOSE; Start 07/26/18 at 08:30 Glucose (Glutose) 22.5 gm Q15M PRN PO DECREASED GLUCOSE; Start 07/26/18 at 08:30 Dextrose (D50w Syringe) 25 ml Q15M PRN IV DECREASED GLUCOSE; Start 07/26/18 at 08:30 Dextrose (D50w Syringe) 50 ml Q15M PRN IV DECREASED GLUCOSE; Start 07/26/18 at 08:30 Glucagon (Glucagen) 1 mg Q15M PRN IM DECREASED GLUCOSE; Start 07/26/18 at 08:30 Glucose (Glutose) 15 gm Q15M PRN BUCCAL DECREASED GLUCOSE; Start 07/26/18 at 08:30 Metoprolol Succinate (Toprol Xl) 50 mg DAILY PO Last administered on 08/01/18at 08:40; Admin Dose 50 MG; Start 07/28/18 at 09:00 Hydralazine HCl (Apresoline) 10 mg Q4H PRN IV ELEVATED BLOOD PRESSURE Last administered on 07/27/18at 23:51; Admin Dose 10 MG; Start 07/28/18 at 00:00 Spironolactone (Aldactone) 25 mg DAILY PO Last administered on 08/01/18at 08:42; Admin Dose 25 MG; Start 07/28/18 at 12:00 Morphine Sulfate (morphine) 3 mg Q4H PRN PO PAIN LEVEL 1-5; Start 07/28/18 at 23:45 Morphine Sulfate (morphine) 6 mg Q4H PRN PO PAIN LEVEL 6-10; Start 07/28/18 at 2 3:45 Bumetanide (Bumex) 1 mg DAILY PO Last administered on 08/01/18 08:41; Admin Dose 1 MG; Start 07/29/18 at 09:00 Pantoprazole (Protonix Tab) 40 mg DAILY@06 PO Last administered on 08/01/18 06:04; Admin Dose 40 MG; Start 07/30/18 at 06:00 Benzonatate (Tessalon) 100 mg TID PRN PO cough Last administered on 08/01/18 06:21; Admin Dose 100 MG; Start 07/30/18 at 14:30 Docusate Sodium (Colace) 100 mg BID PO Last administered on 08/01/18 08:41; Admin Dose 100 MG; Start 07/31/18 at 07:00 Polyethylene Glycol (Miralax) 17 gm DAILY GTB Last administered on 08/01/18 08:42; Admin Dose 17 GM; Start 07/31/18 at 07:00 Losartan Potassium (Cozaar) 25 mg DAILY PO Last administered on 08/01/18 08:41; Admin Dose 25 MG; Start 08/01/18 at 09:00 Insulin Glargine (Lantus) 22 units DAILY@0800 SC Last administered on 08/01/18 10:44; Admin Dose 22 UNITS; Start 08/01/18 at 10:00 Insulin Aspart (Novolog Insulin Pen) 6 unit WITH MEALS SC Last administered on 08/01/18 14:08; Admin Dose 6 UNIT; Start 08/01/18 at 13:55 Assessment/Plan Hospital Course (Demo Recall) 1. Unstable angina 2. Multivessel coronary artery disease 3. 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 Diabetes 5. History of hypertension 6. Anemia 7. Postop respiratory failure currently intubated 8. POST OP FEVER : improved 9. elevated LFT: will defer to IM team Recommendations: Respiratory care will be continued managed as per pulm. cont lisinopril and toprol asa daily abx as per ID rec on PPI for GI prophylaxis Lovenox for DVT prophylaxis as well replace lytes PRN dc planning when ok with CT surgery and IM Thank you for his referral. We will continue to follow along with you on as needed SEAN NOGUERA MD [facility] SEAN NOGUERA MD Aug 01, 2018 16:38
[2018-08-01] MEDS: ATORVASTATIN 40 MG TAB PO SCH (20:13)
[2018-08-01] MEDS: ACETAMINOPHEN 650MG/20.3ML CUP NGT PRN (22:36)
[2018-08-01] MEDS: ALBUTEROL/IPRATROPIUM (NEB) 3 ML AMP HHN PRN (23:43)
[2018-08-02 02:00] VITALS: BP 127/62; PULSE 75; RESP 18
[2018-08-02 03:30] VITALS: BP 116/59; PULSE 86; RESP 18
[2018-08-02] MEDS: PANTOPRAZOLE (EC) 40 MG TAB PO SCH (06:37)
[2018-08-02 08:29] VITALS: BP 108/55; PULSE 79; RESP 18
[2018-08-02] MEDS: INSULIN ASPART [NOVOLOG] 3 ML PEN SC SCH ×4 (08:45→12:54)
[2018-08-02] MEDS: METOPROLOL (XL) 50 MG TAB PO SCH (09:00)
[2018-08-02] MEDS: LOSARTAN 25 MG TAB PO SCH (09:00)
--- NOTE | 2018-08-02 09:00 | PN ---
Date/Time of Note Date/Time of Note DATE: 08/02/18 TIME: 09:00 Assessment/Plan VTE Prophylaxis Risk score (from Nsg)>0 risk: 4 SCD applied (from Nsg): Yes Pharmacological prophylaxis: other Lines/Catheters IV Catheter Type (from Nrsg): Saline Lock Urinary Cath still in place: No Assessment/Plan Assessment/Plan 1. CAD with unstable angina s/p 3V CABG 07/20/18 - Patient remains stable and in no acute distress - Discussed need to follow up with CT surgery in 1 week - Cardiology on board and cleared for discharge. continue current medications 2. acute hypoxic resp distress - no need for home O2 per studies 3. HTN - continue current medications 4. Leukocytosis - ID on board and appreciate recommendations. d/c antibiotics - WBC normalize - cultures negative for acute bacterial infection 5. Uncontrolled diabetes - A1c at OSH noted to be 12.3 - Diabetic education consultation appreciated - Lantus and Novolog on board and adjustments made while inpatient. he has not been eating well due to dislike of hospital food and only eating fruit cups and pastries which has been driving up his sugars. Normally sugars are well controlled - Upon d/c will give Metformin/Jardiance, Basaglar and Novolog- per DM educator recommendation 6. Transaminitis- improving - denies any pain - US shows fatty liver - may be from congestion as well 7. Dysphagia - ST on board and appreciate consultation. now on soft diet 8. Disposition - CM consulted for HHPT and FWW. requesting ambulance transport home Result Diagram: 08/02/18 0507 08/02/18 0507 Results 24hrs Laboratory Tests Test 08/01/18 11:51 08/01/18 13:30 08/01/18 17:24 08/01/18 20:14 Bedside Glucose 298 H 323 H 189 89 Test 08/02/18 05:07 08/02/18 08:57 White Blood Count 9.5 Red Blood Count 5.00 Hemoglobin 14.1 Hematocrit 43.2 Mean Corpuscular 86.4 Volume Mean Corpuscular 28.2 L Hemoglobin Mean Corpuscular 32.6 Hemoglobin Concent Red Cell Distribution 12.9 Width Platelet Count 254 Mean Platelet Volume 9.9 Immature Granulocytes 0.700 H % Neutrophils % 64.7 Lymphocytes % 22.0 Monocytes % 9.5 Eosinophils % 2.8 Basophils % 0.3 Nucleated Red Blood 0.0 Cells % Immature Granulocytes 0.070 H # Neutrophils # 6.1 Lymphocytes # 2.1 Monocytes # 0.9 Eosinophils # 0.3 Basophils # 0.0 Nucleated Red Blood 0.0 Cells # Sodium Level 136 Potassium Level 4.5 Chloride Level 93 L Carbon Dioxide Level 31 Anion Gap 12 Blood Urea Nitrogen 37 H Creatinine 1.04 Est Glomerular Filtrat > 60 Rate mL/min Glucose Level 127 # Calcium Level 9.4 Phosphorus Level 3.8 Magnesium Level 1.9 Total Bilirubin 1.6 H Direct Bilirubin 0.00 Indirect Bilirubin 1.6 H Aspartate Amino 111 H Transf (AST/SGOT) Alanine 136 H Aminotransferase (ALT/ SGPT) Alkaline Phosphatase 159 H Total Protein 7.7 Albumin 3.5 Globulin 4.20 H Albumin/Globulin Ratio 0.83 Bedside Glucose 114 Subjective 24 Hr Interval Summary Free Text/Dictation Patient doing well but still with persistent cough. No acute overnight events. Requesting transport home with ambulance since gets very bad car sickness. Exam/Review of Systems Exam Vitals Vital Signs Date Temp Pulse Resp B/P (MAP) Pulse Ox O2 O2 Flow FiO2 Time Delivery Rate 08/02/18 98.3 79 18 108/55 92 Room Air 08:29 (72) 08/01/18 21 23:43 08/01/18 22:00 Intake and Output 08/01/18 08/01/18 08/02/18 1515:00 23:00 07:00 IntakeIntake Total 1065 ml 360 ml OutputOutput Total 4 ml BalanceBalance 1061 ml 360 ml Exam General: Patient is sitting in chair in no acute distress. speaking without any issues Neck: Supple Chest: sternal dressing in place. no discharge or drainage Respiratory: Clear to auscultation bilaterally. diminished, no wheezing or crackles Cardiovascular: regular rate and rhythm, systolic murmurs Gastrointestinal: soft, non-tender to palpation, bowel sounds heard. no rebound or guarding Neurological: Moves all extremities spontaneously Skin: dressing on LLE clean and dry Results Results 24hrs Laboratory Tests Test 08/01/18 11:51 08/01/18 13:30 08/01/18 17:24 08/01/18 20:14 Bedside Glucose 298 H 323 H 189 89 Test 08/02/18 05:07 08/02/18 08:57 White Blood Count 9.5 Red Blood Count 5.00 Hemoglobin 14.1 Hematocrit 43.2 Mean Corpuscular 86.4 Volume Mean Corpuscular 28.2 L Hemoglobin Mean Corpuscular 32.6 Hemoglobin Concent Red Cell Distribution 12.9 Width Platelet Count 254 Mean Platelet Volume 9.9 Immature Granulocytes 0.700 H % Neutrophils % 64.7 Lymphocytes % 22.0 Monocytes % 9.5 Eosinophils % 2.8 Basophils % 0.3 Nucleated Red Blood 0.0 Cells % Immature Granulocytes 0.070 H # Neutrophils # 6.1 Lymphocytes # 2.1 Monocytes # 0.9 Eosinophils # 0.3 Basophils # 0.0 Nucleated Red Blood 0.0 Cells # Sodium Level 136 Potassium Level 4.5 Chloride Level 93 L Carbon Dioxide Level 31 Anion Gap 12 Blood Urea Nitrogen 37 H Creatinine 1.04 Est Glomerular Filtrat > 60 Rate mL/min Glucose Level 127 # Calcium Level 9.4 Phosphorus Level 3.8 Magnesium Level 1.9 Total Bilirubin 1.6 H Direct Bilirubin 0.00 Indirect Bilirubin 1.6 H Aspartate Amino 111 H Transf (AST/SGOT) Alanine 136 H Aminotransferase (ALT/ SGPT) Alkaline Phosphatase 159 H Total Protein 7.7 Albumin 3.5 Globulin 4.20 H Albumin/Globulin Ratio 0.83 Bedside Glucose 114 Medications Medication Current Medications IV Flush (NS 3 ml) 3 ml PER PROTOCOL IV ; Start 07/11/18 at 05:30 Ondansetron HCl (Zofran Inj) 4 mg Q6H PRN IV NAUSEA/VOMITING Last administered on 07/28/18 00:40; Admin Dose 4 MG; Start 07/11/18 at 05:30 Nitroglycerin (Nitroglycerin (Sl Tab) 0.4 Mg) 1 tab Q5M PRN SL .CHEST PAIN Last administered on 07/26/18 08:58; Admin Dose 1 TAB; Start 07/11/18 at 05:30 Atorvastatin Calcium (Lipitor) 40 mg HS PO Last administered on 08/01/18 20:13; Admin Dose 40 MG; Start 07/11/18 at 21:00 Simethicone (Mylicon) 80 mg QID PRN GTB DISTENSION/GAS/BLOATING Last administered on 07/27/18 15:23; Admin Dose 80 MG; Start 07/13/18 at 12:30 Guaifenesin (Mucinex) 600 mg BID PO Last administered on 08/01/18 20:13; Admin Dose 600 MG; Start 07/15/18 at 10:30 Sodium Chloride (Deep Sea) 2 spray BID PRN NASAL congestion; Start 07/15/18 at 10:30 Potassium Chloride 50 ml @ 50 mls/hr SEE DIRECTION PRN IVPB K+ LEVEL Last administered on 07/21/18 13:44; Admin Dose 50 MLS/HR; Start 07/20/18 at 23:30 Magnesium Sulfate/ Dextrose 100 ml @ 100 mls/hr PRN PRN IVPB PENDING LAB VALUE; Start 07/20/18 at 23:30 Midazolam HCl (Versed) 2 mg Q2H PRN IV AGITATION; Start 07/21/18 at 04:30 Acetaminophen (Tylenol Liquid) 650 mg Q6 PRN NGT MILD PAIN(1-3)OR ELEVATED TEMP Last administered on 08/01/18 22:36; Admin Dose 650 MG; Start 07/21/18 at 09:00 Aspirin (Aspirin) 81 mg DAILY NGT Last administered on 08/01/18 08:41; Admin Dose 81 MG; Start 07/23/18 at 09:00 Enoxaparin Sodium (Lovenox) 30 mg DAILY SC Last administered on 08/01/18 09:02; Admin Dose 30 MG; Start 07/23/18 at 09:00 Albuterol/ Ipratropium (Duoneb) 3 ml Q2H RESP THERAPY PRN HHN sob Last administered on 08/01/18 23:43; Admin Dose 3 ML; Start 07/23/18 at 20:30 Insulin Aspart (Novolog Insulin Pen) NOVOLOG *MODERATE* ALGORITHM WITH MEALS BEDTIME SC Last administered on 08/01/18 17:32; Admin Dose 4 UNIT; Start 07/26/18 at 11:30 Miscellaneous Information 1 ea NOTE XX ; Start 07/26/18 at 08:30 Glucose (Glutose) 15 gm Q15M PRN PO DECREASED GLUCOSE; Start 07/26/18 at 08:30 Glucose (Glutose) 22.5 gm Q15M PRN PO DECREASED GLUCOSE; Start 07/26/18 at 08:30 Dextrose (D50w Syringe) 25 ml Q15M PRN IV DECREASED GLUCOSE; Start 07/26/18 at 08:30 Dextrose (D50w Syringe) 50 ml Q15M PRN IV DECREASED GLUCOSE; Start 07/26/18 at 08:30 Glucagon (Glucagen) 1 mg Q15M PRN IM DECREASED GLUCOSE; Start 07/26/18 at 08:30 Glucose (Glutose) 15 gm Q15M PRN BUCCAL DECREASED GLUCOSE; Start 07/26/18 at 08:30 Metoprolol Succinate (Toprol Xl) 50 mg DAILY PO Last administered on 08/01/18 08:40; Admin Dose 50 MG; Start 07/28/18 at 09:00 Hydralazine HCl (Apresoline) 10 mg Q4H PRN IV ELEVATED BLOOD PRESSURE Last administered on 07/27/18 23:51; Admin Dose 10 MG; Start 07/28/18 at 00:00 Spironolactone (Aldactone) 25 mg DAILY PO Last administered on 08/01/18 08:42; Admin Dose 25 MG; Start 07/28/18 at 12:00 Morphine Sulfate (morphine) 3 mg Q4H PRN PO PAIN LEVEL 1-5; Start 07/28/18 at 23:45 Morphine Sulfate (morphine) 6 mg Q4H PRN PO PAIN LEVEL 6-10; Start 07/28/18 at 23:45 Bumetanide (Bumex) 1 mg DAILY PO Last administered on 08/01/18 08:41; Admin Dose 1 MG; Start 07/29/18 at 09:00 Pantoprazole (Protonix Tab) 40 mg DAILY@06 PO Last administered on 08/02/18 06:37; Admin Dose 40 MG; Start 07/30/18 at 06:00 Benzonatate (Tessalon) 100 mg TID PRN PO cough Last administered on 08/01/18 06:21; Admin Dose 100 MG; Start 07/30/18 at 14:30 Docusate Sodium (Colace) 100 mg BID PO Last administered on 08/01/18 20:13; Admin Dose 100 MG; Start 07/31/18 at 07:00 Polyethylene Glycol (Miralax) 17 gm DAILY GTB Last administered on 08/01/18 08:42; Admin Dose 17 GM; Start 07/31/18 at 07:00 Losartan Potassium (Cozaar) 25 mg DAILY PO Last administered on 08/01/18 08:41; Admin Dose 25 MG; Start 3/9/19 at 09:00 Insulin Glargine (Lantus) 22 units DAILY@0800 SC Last administered on 08/01/18at 10:44; Admin Dose 22 UNITS; Start 08/01/18 at 10:00 Insulin Aspart (Novolog Insulin Pen) 6 unit WITH MEALS SC Last administered on 08/01/18at 17:38; Admin Dose 6 UNIT; Start 08/01/18 at 13:55 KARINA MADDOX MD Aug 02, 2018 09:00
[2018-08-02] MEDS: ENOXAPARIN 30 MG/0.3 ML SYG SC SCH (09:01)
[2018-08-02] MEDS: INSULIN GLARGINE [LANTus] (100 UNITS/ML) SYG SC SCH (09:01)
[2018-08-02] MEDS: SPIRONOLACTONE 25 MG TAB PO SCH (09:02)
[2018-08-02] MEDS: POLYETHYLENE GLYCOL 17 GM PACKET GTB SCH (09:02)
[2018-08-02] MEDS: ASPIRIN 81 MG TAB NGT SCH (09:03)
[2018-08-02] MEDS: GUAIFENESIN LA 600 MG TABSR PO SCH (09:03)
[2018-08-02] MEDS: DOCUSATE SODIUM 100 MG CAP PO SCH (09:03)
[2018-08-02] MEDS: BUMETANIDE 1 MG TAB PO SCH (09:08)
--- NOTE | 2018-08-02 09:50 | PN ---
DATE: 08/02/2018 SUBJECTIVE: The patient is stable. No events overnight. The patient continues to have a cough, rec eiving breathing treatments. OBJECTIVE: VITAL SIGNS: Blood pressure is 108/55, pulse 79, respiration 18, temperature 98.3. HEENT: Head is normocephalic. NECK: Supple. HEART: Regular rate. LUNGS: Show diminished breath sounds at the base. ABDOMEN: Soft, nontender to palpation without rebound or guarding. EXTREMITIES: Negative for clubbing, cyanosis, no edema. DERMATOLOGIC: No rashes. MUSCULOSKELETAL: No joint effusion. No joint effusion. NEUROLOGIC: No change in exam. MEDICATIONS: Reviewed. LABORATORY DATA: From 08/02/2018 was reviewed. ASSESSMENT AND PLAN: 1. Nonoliguric acute kidney injury with a previous baseline creatinine of 0.9 mg/dL. Etiology of ac redding kidney injury is secondary to hemodynamics. Renal function is improved. Continue current treatm ent plan, supportive care, renally dose all meds. 2. Acute heart failure, improved. Continue medical management. 3. Hyperkalemia, resolved. 4. Anemia. Monitor hemoglobin and hematocrit levels. 5. Mineral bone disorder. Monitor calcium and phosphorus levels. 6. Coronary artery disease, status post coronary artery bypass graft. Continue medical management. 7. Cough. Etiology may be secondary to underlying COPD, bronchitis. The patient is completing anti biotic course. Continue to monitor. 8. Diabetes. Current diabetic regimen. 9. Status post shock. 10. Status post respiratory failure. 11. Transaminitis. Continue to monitor. Workup per primary team. Dictated By: MARCO ANTONIO BARRETT DO NR/NTS Conf#: [id number] DID#: [id number] CC: SUZETTE SIMMONS MD;*EndCC*
[2018-08-02] MEDS ORDERED: NOVO3I SC (11:11)
[2018-08-02] MEDS ORDERED: PEN1DIS.48 MC (11:11)
[2018-08-02] MEDS ORDERED: INSU100I33 SC (11:11)
[2018-08-02] MEDS ORDERED: EMPA10TA PO (11:11)
[2018-08-02] MEDS ORDERED: SPIR25TA PO (11:11)
[2018-08-02] MEDS ORDERED: BUME1TAB PO (11:11)
[2018-08-02] MEDS ORDERED: METO-319 PO (11:11)
[2018-08-02] MEDS ORDERED: SODI44SP19 NASAL (11:11)
[2018-08-02] MEDS ORDERED: LOSA25TA2 PO (11:11)
[2018-08-02] MEDS ORDERED: ALBU8.5H8 INH (11:11)
[2018-08-02] MEDS ORDERED: ATOR40TA68 PO (11:11)
[2018-08-02] MEDS ORDERED: BENZ-5 PO (11:11)
[2018-08-02] MEDS ORDERED: METF500T24 PO (11:11)
[2018-08-02] MEDS ORDERED: WALK1EAC23 MC (11:11)
[2018-08-02] MEDS ORDERED: NITR0.4T32 SL (11:11)
[2018-08-02] MEDS ORDERED: ASPI-831 PO (11:11)
--- NOTE | 2018-08-02 11:20 | PDOCDIS ---
Discharge Instructions DIAGNOSIS Discharge Diagnosis 1. CAD with unstable angina s/p 3 vessel CABG 07/20/18 2. acute hypoxic resp distress- resolved 3. Hypertension 4. Uncontrolled diabetes, A1c 12.3 5. Transaminitis- improving CONDITION [id number] Patient Condition: [id number] Stable HOME CARE INSTRUCTIONS: [id number] Diet Instructions: [id number] Low Fat /Cholesterol FOLLOW UP/APPOINTMENTS Follow-up Plan 1. Follow up with your primary care physician in 1 week 2. Follow up with Dr. Olivas in 1 week 3. You will need to follow a low sugar, low carb diet and continue to check your sugars to prevent complications from diabetes. You will need to take Basaglar 22 units in the morning and Novolog 12 units with meals in addition to Metformin twice a day and Jardiance in the morning. Follow up with your primary care physician for continued management of your medications 4. You will need to continue on all medications as prescribed for blood pressure control 5. If experiencing coughing or shortness of breath take Tessalon pearls and use inhaler as needed 6. If experiencing any concerning symptoms, go to your nearest emergency department REFERRALS Other Referrals Ishmael Olivas MD Specialty: Cardiothoracic Surgery Comments Office Address [address] [place] [id number] Office KARINA MADDOX MD Aug 02, 2018 11:20
--- NOTE | 2018-08-02 11:51 | CONS ---
Consult Date/Type/Reason Admit Date/Time Jul 11, 2018 at 04:15 Initial Consult Date 07/17/18 Type of Consultation: CV Requesting Provider: VANIA LAMB MD Date/Time of Note DATE: 08/02/18 TIME: 11:50 Subjective Interventional cardiology follow-up progress note Subjective: Discussed with the staff and Patient status post 3 v coronary artery bypass graft 07/20/2018. Patient off tele now less SOB today still c/o cough Objective: General: no acute distress HEENT: NC/AT. pupils are equal. round. NECK: . no stridor. Chest: Status post sternotomy, status post chest tube removed now CV: RRR. systolic murmur; no gallop or rubs. PULM: no wheezing minimal rhonchi GI: SOFT, NT, ND, no rebound or guarding Extremity: trace B/L LE edema. no clubbing. neuro: awake and responds appropriately Psych: calm and pleasant rectal: deferred : normal Echocardiogram done 07/11/2018 which was personally reviewed shows: Normal left ventricular systolic function. Normal left ventricular cavity size. Sigmoid septum. Ejection fraction is visually estimated at 55 %. Tissue Doppler/Mitral Doppler indices are consistent with impaired relaxation (Stage I diastolic dysfunction). Mild mitral leaflet calcification. Mild mitral annular calcification. Trace mitral regurgitation. No significant aortic stenosis or insufficiency. Aortic cusps appear mildly calcified. Normal appearance of the tricuspid valve. Estimated peak PA systolic pressure 26 mmHg. There is trace tricuspid regurgitation. Objective Vitals Vital Signs Date Temp Pulse Resp B/P (MAP) Pulse Ox O2 O2 Flow FiO2 Time Delivery Rate 08/02/18 98.3 79 18 108/55 92 Room Air 08:29 (72) 08/01/18 21 23:43 08/01/18 22:00 Intake and Output 08/01/18 08/01/18 08/02/18 1515:00 23:00 07:00 IntakeIntake Total 1065 ml 360 ml OutputOutput Total 4 ml BalanceBalance 1061 ml 360 ml Results/Medications Result Diagram: 08/02/18 0507 08/02/18 0507 Results 24 hrs Laboratory Tests Test 08/01/18 11:51 08/01/18 13:30 08/01/18 17:24 08/01/18 20:14 Bedside Glucose 298 H 323 H 189 89 Test 08/02/18 05:07 08/02/18 08:57 White Blood Count 9.5 Red Blood Count 5.00 Hemoglobin 14.1 Hematocrit 43.2 Mean Corpuscular 86.4 Volume Mean Corpuscular 28.2 L Hemoglobin Mean Corpuscular 32.6 Hemoglobin Concent Red Cell Distribution 12.9 Width Platelet Count 254 Mean Platelet Volume 9.9 Immature Granulocytes 0.700 H % Neutrophils % 64.7 Lymphocytes % 22.0 Monocytes % 9.5 Eosinophils % 2.8 Basophils % 0.3 Nucleated Red Blood 0.0 Cells % Immature Granulocytes 0.070 H # Neutrophils # 6.1 Lymphocytes # 2.1 Monocytes # 0.9 Eosinophils # 0.3 Basophils # 0.0 Nucleated Red Blood 0.0 Cells # Sodium Level 136 Potassium Level 4.5 Chloride Level 93 L Carbon Dioxide Level 31 Anion Gap 12 Blood Urea Nitrogen 37 H Creatinine 1.04 Est Glomerular Filtrat > 60 Rate mL/min Glucose Level 127 # Calcium Level 9.4 Phosphorus Level 3.8 Magnesium Level 1.9 Total Bilirubin 1.6 H Direct Bilirubin 0.00 Indirect Bilirubin 1.6 H Aspartate Amino 111 H Transf (AST/SGOT) Alanine 136 H Aminotransferase (ALT/ SGPT) Alkaline Phosphatase 159 H Total Protein 7.7 Albumin 3.5 Globulin 4.20 H Albumin/Globulin Ratio 0.83 Bedside Glucose 114 Home Meds Active Scripts Front Wheel Walker* (Front Wheel Walker*) 1 Each Dme, EACH DIRECTED, #1 0 Refills Prov:KARINA MADDOX MD 08/02/18 Pen Needle, Diabetic (Insulin Pen Needle) 1 Each Dis.needle, EACH ACHS A, #120 9 Refills Prov:KARINA MADDOX MD 08/02/18 Empagliflozin (Jardiance) 10 Mg Tablet, 10 MG PO DAILY for 30 Days, #30 TAB 6 Refills Prov:KARINA MADDOX MD 08/02/18 Metformin Hcl* (Metformin Hcl*) 500 Mg Tablet, 500 MG PO WITH BREAKFAST DINNE for 30 Days, #60 TAB 6 Refills Prov:KARINA MADDOX MD 08/02/18 Albuterol Sulfate* (Proair HFA*) 8.5 Gm Hfa.aer.ad, 2 PUFF INH Q4H PRN for WHEEZING AND SOB, #1 INHALER 6 Refills Prov:KARINA MADDOX MD 08/02/18 Insulin Glargine,Hum.rec.anlog (Basaglar Kwikpen U-100) 100 Unit/1 Ml Insuln.pen, 22 UNIT SC DAILY for 30 Days, #12 EA 9 Refills Prov:KARINA MADDOX MD 08/02/18 Insulin Aspart* (Novolog Insulin Pen*) 100 Unit/Ml Soln, 12 UNIT SC WITH MEALS for 30 Days, #1 EACH 6 Refills Prov:KARINA MADDOX MD 08/02/18 Benzonatate* (Benzonatate*) 100 Mg Capsule, 100 MG PO TID PRN for cough for 30 Days, #90 CAP 2 Refills Prov:KARINA MADDOX MD 08/02/18 Saline (Deep Sea) 44 Ml [place], 2 SPRAY NASAL BID PRN for congestion for 30 Days, #1 BOT 6 Refills Prov:KARINA MADDOX MD 08/02/18 Bumetanide* (Bumetanide*) 1 Mg Tablet, 1 MG PO DAILY for 30 Days, #30 TAB 6 Refills Prov:KARINA MADDOX MD 08/02/18 Aspirin (Aspirin) 81 Mg Chew, 81 MG PO DAILY for 30 Days, #30 TAB 6 Refills Prov:KARINA MADDOX MD 08/02/18 Nitroglycerin* (Nitroglycerin* SL) 0.4 Mg Tab.subl, 1 TAB SL Q5M PRN for .CHEST PAIN for 30 Days, #120 TAB 3 Refills Prov:KARINA MADDOX MD 08/02/18 Spironolactone* (Aldactone*) 25 Mg Tablet, 25 MG PO DAILY for 30 Days, #30 TAB 6 Refills Prov:KARINA MADDOX MD 08/02/18 Metoprolol Succinate* (Toprol XL*) 50 Mg Tab.er.24h, 50 MG PO DAILY for 30 Days, #30 TAB 6 Refills Prov:KARINA MADDOX MD 08/02/18 Losartan Potassium* (Cozaar*) 25 Mg Tablet, 25 MG PO DAILY for 30 Days, #30 TAB 6 Refills Prov:KARINA MADDOX MD 08/02/18 Atorvastatin* (Atorvastatin*) 40 Mg Tablet, 40 MG PO HS for 30 Days, #30 TAB 6 Refills Prov:KARINA MADDOX MD 08/02/18 Medications Current Medications IV Flush (NS 3 ml) 3 ml PER PROTOCOL IV ; Start 07/11/18 at 05:30 Ondansetron HCl (Zofran Inj) 4 mg Q6H PRN IV NAUSEA/VOMITING Last administered on 07/28/18 00:40; Admin Dose 4 MG; Start 07/11/18 at 05:30 Nitroglycerin (Nitroglycerin (Sl Tab) 0.4 Mg) 1 tab Q5M PRN SL .CHEST PAIN Last administered on 07/26/18 08:58; Admin Dose 1 TAB; Start 07/11/18 at 05:30 Atorvastatin Calcium (Lipitor) 40 mg HS PO Last administered on 08/01/18 20:13; Admin Dose 40 MG; Start 07/11/18 at 21:00 Simethicone (Mylicon) 80 mg QID PRN GTB DISTENSION/GAS/BLOATING Last administered on 07/27/18 15:23; Admin Dose 80 MG; Start 07/13/18 at 12:30 Guaifenesin (Mucinex) 600 mg BID PO Last administered on 08/02/18 09:03; Admin Dose 600 MG; Start 07/15/18 at 10:30 Sodium Chloride (Deep Sea) 2 spray BID PRN NASAL congestion; Start 07/15/18 at 10:30 Midazolam HCl (Versed) 2 mg Q2H PRN IV AGITATION; Start 07/21/18 at 04:30 Acetaminophen (Tylenol Liquid) 650 mg Q6 PRN NGT MILD PAIN(1-3)OR ELEVATED TEMP Last administered on 08/01/18 22:36; Admin Dose 650 MG; Start 07/21/18 at 09:00 Aspirin (Aspirin) 81 mg DAILY NGT Last administered on 08/02/18 09:03; Admin Dose 81 MG; Start 07/23/18 at 09:00 Enoxaparin Sodium (Lovenox) 30 mg DAILY SC Last administered on 08/02/18 09:01; Admin Dose 30 MG; Start 07/23/18 at 09:00 Albuterol/ Ipratropium (Duoneb) 3 ml Q2H RESP THERAPY PRN HHN sob Last administered on 08/01/18 23:43; Admin Dose 3 ML; Start 07/23/18 at 20:30 Insulin Aspart (Novolog Insulin Pen) NOVOLOG *MODERATE* ALGORITHM WITH MEALS BEDTIME SC Last administered on 3/9/19at 17:32; Admin Dose 4 UNIT; Start 07/26/18 at 11:30 Miscellaneous Information 1 ea NOTE XX ; Start 07/26/18 at 08:30 Glucose (Glutose) 15 gm Q15M PRN PO DECREASED GLUCOSE; Start 07/26/18 at 08:30 Glucose (Glutose) 22.5 gm Q15M PRN PO DECREASED GLUCOSE; Start 07/26/18 at 08:30 Dextrose (D50w Syringe) 25 ml Q15M PRN IV DECREASED GLUCOSE; Start 07/26/18 at 08:30 Dextrose (D50w Syringe) 50 ml Q15M PRN IV DECREASED GLUCOSE; Start 07/26/18 at 08:30 Glucagon (Glucagen) 1 mg Q15M PRN IM DECREASED GLUCOSE; Start 07/26/18 at 08:30 Glucose (Glutose) 15 gm Q15M PRN BUCCAL DECREASED GLUCOSE; Start 07/26/18 at 0 8:30 Metoprolol Succinate (Toprol Xl) 50 mg DAILY PO Last administered on 08/01/18at 08:40; Admin Dose 50 MG; Start 07/28/18 at 09:00 Hydralazine HCl (Apresoline) 10 mg Q4H PRN IV ELEVATED BLOOD PRESSURE Last administered on 07/27/18at 23:51; Admin Dose 10 MG; Start 07/28/18 at 00:00 Spironolactone (Aldactone) 25 mg DAILY PO Last administered on 08/02/18at 09:02; Admin Dose 25 MG; Start 07/28/18 at 12:00 Morphine Sulfate (morphine) 3 mg Q4H PRN PO PAIN LEVEL 1-5; Start 07/28/18 at 23:45 Morphine Sulfate (morphine) 6 mg Q4H PRN PO PAIN LEVEL 6-10; Start 07/28/18 at 23:45 Bumetanide (Bumex) 1 mg DAILY PO Last administered on 08/02/18at 09:08; Admin Dose 1 MG; Start 07/29/18 at 09:00 Pantoprazole (Protonix Tab) 40 mg DAILY@06 PO Last administered on 08/02/18at 06:37; Admin Dose 40 MG; Start 07/30/18 at 06:00 Benzonatate (Tessalon) 100 mg TID PRN PO cough Last administered on 08/01/18at 06:21; Admin Dose 100 MG; Start 07/30/18 at 14:30 Docusate Sodium (Colace) 100 mg BID PO Last administered on 08/02/18 09:03; Admin Dose 100 MG; Start 07/31/18 at 07:00 Polyethylene Glycol (Miralax) 17 gm DAILY GTB Last administered on 08/02/18 09:02; Admin Dose 17 GM; Start 07/31/18 at 07:00 Losartan Potassium (Cozaar) 25 mg DAILY PO Last administered on 08/01/18at 08:41; Admin Dose 25 MG; Start 08/01/18 at 09:00 Insulin Glargine (Lantus) 22 units DAILY@0800 SC Last administered on 08/02/18 09:01; Admin Dose 22 UNITS; Start 08/01/18 at 10:00 Insulin Aspart (Novolog Insulin Pen) 6 unit WITH MEALS SC Last administered on 08/02/18 09:00; Admin Dose 6 UNIT; Start 08/01/18 at 13:55 Assessment/Plan Hospital Course (Demo Recall) 1. Unstable angina 2. Multivessel coronary artery disease 3. 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 Diabetes 5. History of hypertension 6. Anemia 7. Postop respiratory failure currently intubated 8. POST OP FEVER : improved 9. elevated LFT: will defer to IM team Recommendations: Respiratory care will be continued managed as per pulm. cont lisinopril and toprol asa daily abx as per ID rec on PPI for GI prophylaxis Lovenox for DVT prophylaxis as well replace lytes PRN dc planning when ok with CT surgery and IM Thank you for his referral. We will continue to follow along with you on as needed SEAN NOGUERA MD [facility] SEAN NOGUERA MD Aug 02, 2018 11:51
[2018-08-02 14:00] VITALS: BP 110/58; PULSE 74; RESP 18
--- NOTE | 2018-08-02 17:48 | DS ---
Date/Time of Note Date/Time of Note DATE: 08/02/18 TIME: 17:35 Discharge Summary Admission/Discharge Info Admit Date/Time Jul 11, 2018 at 04:15 Discharge Date/Time Aug 02, 2018 at 15:52 Discharge Diagnosis 1. CAD with unstable angina s/p 3 vessel CABG 07/20/18 2. acute hypoxic resp distress- resolved 3. Hypertension 4. Uncontrolled diabetes, A1c 12.3 5. Transaminitis- improving Patient Condition: Stable Consults CT surgery- Dr. Olivas Cardiology- Dr. Martinez Pulmonology- Dr. Narayan Nephrology- Dr. Toure Infectious disease- Dr. Almanzar Procedures PROCEDURE: Carotid ultrasound CLINICAL INDICATION: Preoperative examination, carotid bruits TECHNIQUE: Bobo scale, color doppler, spectral doppler ultrasound of the bilateral carotid and vertebral arteries. This study indirectly references the measurement of the distal ICA diameter as the denominator for stenosis measurement. Validated velocity measurements with angiographic measurements, velocity criteria are extrapolated from diameter data as defined by: *Cartoid artery stenosis: bobo-scale and Doppler US diagnosis. Society of Radiologists in Ultrasound Consensus Conference. Radiology 2003; 229: 340-346. SRU Consensus Conference Criteria for the Diagnosis of Carotid Artery Stenosis* Degree of Stenosis, % ICA PSV, cm/sec Plaque Estimate, % ICA/CCA PSV Ratio Normal <125 None <2.0 <50 <125 <50 <2.0 50 69 125-230 >50 2.0-4.0 >70 but less than near occlusion >230 >50 <4.0 Near occlusion High, low, or undetectable Visible Variable Total occlusion Undetectable Visible, no detectable lumen Not applicable COMPARISON: No prior studies are available for comparison. FINDINGS: Location Right CCA 95 - 101 cm/sec Prox ICA 80 cm/sec Mid ICA 75 cm/sec Dist ICA Not visualized by the fruit pitter. ECA 66 cm/sec ICA/CCA 0.8 Left CCA 116 - 170 cm/sec Prox ICA 174 cm/sec Mid ICA 126 cm/sec Dist ICA 80 cm/sec ECA 171 cm/sec ICA/CCA 1.1 Plaque burden: Mild plaque burden within the left internal carotid artery. Antegrade flow is seen within the vertebral arteries bilaterally. IMPRESSION: Observed plaque burden and velocities involving the left internal carotid artery are discordant. Velocities suggesting a 50 - 69% stenosis although plaque burden appears to be greater. CT angiography recommended for further evaluation. RPTAT: AADD .Eric Mccallum MD, MD Date Time Electronically viewed and signed by .Eric Mccallum MD, on 07/18/2018 17:18 PROCEDURE: CT chest without contrast CLINICAL INDICATION: Shortness of breath. Left pleural effusion TECHNIQUE: CT scan of the chest was performed without intravenous contrast. Coronal and sagittal images were reformatted. One or more of the following dose reduction techniques were used: DICOM images are available. Automated exposure control, adjustment of the mA and/or kV according to patient size, use of iterative reconstruction technique. The CTDIvol = 12.75 mGy and DLP = 412.40 mGycm. COMPARISON: Chest x-ray 07/24/2018 and 07/23/2018 FINDINGS: Lungs, airway and pleura: The trachea is patent and midline but there is a mucus secretion along the floor of the left main bronchus. No bronchiectasis is present. Compressive atelectasis of the entire left lower lobe is present with additional compressive atelectasis involving the posterior basal segment of the right lower lobe. The compressive atelectasis bilaterally is related to pleural effusions, the left pleural effusion occupying approximately 25% of the dependent left thorax and the right pleural effusion approximately 15%. The left pleural effusion does extend into the major fissure. There is no evidence of pneumothorax. Mild alveolar and interstitial edema are present. There is no evidence of pulmonary mass or nodule. Mediastinum, yashira and cardiovascular: Cardiomegaly is noted with coronary artery atherosclerotic calcification and changes of recent coronary artery bypass graft surgery, a few punctate foci of gas in the anterior inferior right mediastinum are present. There is no evidence for pericardial effusion. The thoracic aorta is normal in caliber with moderate atherosclerotic calcification. A right internal jugular approach central venous access catheter Cordis is present the tip in the superior vena cava above the right atrial junction. There is no evidence for hilar mass and no mediastinal adenopathy is present. The esophagus is normal in caliber. Osseous structures and musculoskeletal findings: Sternotomy defect with multiple wires are consistent with recent thoracotomy. Bridging syndesmophytes of the thoracic spine like reflect diffuse idiopathic skeletal hyperostosis. There is no evidence of lytic or blastic lesion. A small amount of gas overly ing the sternotomy defect is consistent with recent surgery but there is no evidence of organized collection. The axillary regions are unremarkable. Visualized upper abdomen: No abnormalities are identified. The adrenal glands are normal bilaterally. RPTAT:HJJR IMPRESSION: 1. Left larger than right pleural effusions causing compressive atelectasis of the entire left lower lobe and posterior basal segment right lower lobe. 2. Changes of recent thoracotomy for CABG with cardiomegaly and mild inter stitial/alveolar edema concerning for congestive heart failure. 3. Atherosclerotic calcification of the thoracic aorta. Physician Stephon Date Time Electronically viewed and signed by Physician Stephon on 07/24/2018 16:25 PROCEDURE: US guided left thoracentesis. CLINICAL INDICATION: Shortness of breath. Left pleural effusion. TECHNIQUE: Prior to the procedure, informed consent was obtained. The risks, benefits, and alternatives were explained to the patient or the patient's family, including but not limited to bleeding, infection, pain, visceral or vascular damage, shock, pneumothorax, chest tube placement, air embolism, and . The patient or the patient's family understood the risks and the alternatives and wished to proceed with the study. Informed written consent was obtained. A procedural pause was performed. The patient's name, date of , and procedure to be performed were verified. Ultrasound of the left hemithorax was performed in the axial and sagittal planes. A left pleural effusion is noted. Utilizing ultrasound guidance, optimal location for entry to the pleural cavity was ascertained. The overlying skin was prepped and draped in the usual sterile fashion. Approximately 10 ml of 1% Xylocaine was injected locally for pain control. Using ultrasound guidance, a 5-[place] Figure 1eh catheter was introduced into the left pleural space without difficulty. Fluid was aspirated. COMPARISON: Chest x-ray done earlier the same day. FINDINGS: Initial ultrasound demonstrates fluid in the left pleural space. Approximately 0.400 liters of serosanguineous was aspirated and sent to the laboratory. Specimens: Pleural fluid. Blood loss: 1 ml. Complications: None. Penology Teacher: None. Anesthesia: Local. Graft/Implant: None. IMPRESSION: 1. Satisfactory ultrasound-guided left thoracentesis. RPTAT: QQ .Wilbert Feliz MD, Date Time Electronically viewed and signed by .Wilbert Feliz MD, on 07/25/2018 18:17 PROCEDURE: US Abdomen. CLINICAL INDICATION: Elevated LFTs TECHNIQUE: Multiple real-time images were acquired of the patient's right upper quadrant abdomen and retroperitoneum utilizing a high resolution transducer. COMPARISON: None FINDINGS: The left lobe is not seen due to overlying bandages. The liver demonstrates slightly increased echogenicity. The liver is normal in size and no focal solid lesions are seen. The liver measures 12.1 cm in length. The portal vein is patent with normal direction of flow. No intrahepatic biliary dilatation is seen. No gallstones are identified within the gallbladder. There is no pericholecystic fluid or gallbladder wall thickening. The common bile duct measures 5 mm in maximal dimension. The pancreas is not well seen due to overlying bowel gas and overlying bandages. No free fluid is identified. The right kidney is normal in size, and demonstrate normal echogenicity and cortical thickness. The right kidney measures 10.9 cm in long dimension. There is no evidence of hydronephrosis. There are no kidney stones. RPTAT: AA IMPRESSION: Limited study due to overlying bandages. Mild fatty infiltration of the liver. No evidence of gallstones. .Johan Jackson MD, Date Time Electronically viewed and signed by .Johan Jackson MD, on 07/30/2018 17:10 Operative Report Procedure Date: Jul 17, 2018 Preoperative Diagnosis unstable angina Postoperative Diagnosis same Operation/Procedure Performed IVUS LM/ LAD Surgeon see signature line Penology Teacher jacqueline Anesthesia Type: moderate sedation Estimated Blood Loss: minimal Transfusion none Specimen None Grafts/Implants none Complications none Procedure Description Malariologist: Glen Martinez MD Indication: 60-year-old gentleman with unstable angina. Patient was noted to have significant LAD disease. He had a unclear left main disease. After disc ussion with his cardiac surgery and the patient family decided to bring the patient for coronary angiography and further evaluation of the left main to CVA PCI is an option Procure performed: #1 l selective left coronary angiogram #2 Right femoral angiogram and closure using a Perclose device 3. Successful intravascular ultrasound of the left main and proximal left anterior descending artery 4. Moderate sedation for more than 60 minutes Findings: 1. Left main: is calcified and small. It is about 40-50% distal stenosis but the diameter is only 3 mm at the distal portion and is heavily calcified consistent with a significant left main disease. Pressure damping was also noted upon engagement with the guiding catheter 2. LAD: has 80 % calcified stenosis at ostial/proximal LAD, and 95 % stenosis at mid LAD. It is small but wraps around the apex. Diagonal is also small with about 80% diffuse proximal stenosis 3. Left circumflex artery: is nondominant. it has 30-40 % stenosis 4 Procedure in detail: Written informed consent with obtained after risks benefits and alternatives discussed with the patient in detail. risks including but not limited to risk of infection vascular complications, bleeding complications, WI stroke arrhythmia renal failure at even were discussed with the patient in detail. Patient was brought into the cardiac coreroom foundry laborer and placed in supine position. Right and left groin area was prepped and draped in regular sterile fashion and then he was in anesthetized using 1% lidocaine. Right femoral artery was cannulated and using modified seldinger technique a 6 [place] sheath was placed in the femoral artery. Femoral angiogram was performed . A JL4 guiding catheter was advanced to engage the left main coronary artery. Angiographic view was obtained after intracoronary nitroglycerin was given. It was decided to do IVS of the left main coronary artery PT wire was used and advanced across the lesion and placed distal to the lesion in the LAD. Intravascular ultrasound was advanced and imaging was obtained. Left main appears to be significantly diseased with calcium and down to 3 mm in diameter the distal left main disease. Cath and guidewire was removed. perclose was successfully deployed. Patient tolerated the procedure well with no complication. Patient was transferred to ICU in stable condition. contrast used: 80 cc Visipaque Conclusions: Coronary angiography and IVUS of the left main and proximal LAD shows significant stenosis at this area. Recommendations: Coronary artery bypass graft Operative Report Procedure Date: Jul 20, 2018 Preoperative Diagnosis Coronary artery disease Postoperative Diagnosis Same Operation/Procedure Performed Coronary artery bypass grafting 1 GODFREY to LAD 2 SVG to D1 3 SVG to OM 4 Thymectomy Surgeon see signature line Penology Teacher John Carson Anesthesia Type: general Estimated Blood Loss: minimal Transfusion none Specimen None Grafts/Implants none Complications none Pt Condition Post Procedure: critical Disposition: PACU Indications 68-year-old male with a history of diabetes hypertension coronary artery disease undergoing coronary artery bypass grafting risk benefits complications alternative therapies explained to the patient consent obtained Procedure Description Patient was placed supine position prepped and draped in usual sterile fashion timeout was called antibiotics was given Sternotomy incision was made from the sternal notch down to the xiphoid process Saphenous vein was harvested using an open technique from the right lower extremity from the ankle all the way up to the upper leg The sternum was opened in the mid aspect of the sternum Left internal mammary artery was harvested using electrocautery and titanium clips Sternal was opened using the chest retractor Pericardium was open after doing a thymectomy to gain access into the aorta Patient was fully heparinized pericardial cradle was made Dilation sutures all 3-0 Prolene with pledgets were applied to the mid ascending aorta body of the right atrium right atrial appendage After adequate documentation of a CT aorta was cannulated followed by two-stage venous cannula antegrade and retrograde cardioplegia cannula The heart was placed on cardiopulmonary bypass cross-clamp applied the heart arrested using cold potassium based blood based cardioplegia given antegrade and retrograde which was continued every 15-20 minutes throughout the cross-clamp time also cardioplegia given through the graft as they were being constructed and topical slush to the surface of the heart I proceeded with the distal anastomosis the saphenous vein was used in a natural Y fashion for the first diagonal branch of the LAD and also the obtuse marginal branch of the circumflex Mammary artery was anastomosed to the LAD Distal anastomosis were done to 8 mm longitudinal coronary arteriotomy 7-0 Prolene continuous suture technique end-to-side fashion to the beveled end of the vein or the artery The only proximal anastomosis was done on the same cross-clamp 4.5 mm punch end-to-side fashion 6-0 Prolene continuous suture technique The head was placed in steep Trendelenburg position cross-clamp removed the heart and the graft de-aired Heart came off cardia pulmonary bypass with minimal support protamine given cannulas removed sutures tied 2 ventricular pacing wires to chest tubes were brought placed and brought out through lower stab was secured to skin using 2 silk sutures Sternum was closed using a cable system [id number] times Linea alba and the deep tissues were irrigated and closed in 2 layers of #1 Vicryl suture for the linea alba 2-0 Vicryl suture for subcu 4-0 Monocryl suture in a running subcuticular skin closure The leg was closed in a similar fashion Tolerated procedure well VANIA OLIVAS MD Jul 20, 2018 21:22 Hx of Present Illness Patient is a 68-year-old male with a history of hypertension, uncontrolled insulin-dependent diabetes, former smoker ([id number], quit 30 years ago), patient presented to [facility] on with typical chest pain. Patient had a negative EKG and troponin was found to have multivessel disease on left heart cath. Heart cath showed moderate diffuse disease in the LM, LAD, first diagonal, left circumflex, third OM, LAD with 95% discrete mid vessel stenosis. Patient was seen by CT surgery who recommended CABG, patient was transferred to [facility] due to capitation. Patient will be evaluated by CT surgery and will have CABG next week. Patient currently denies any chest pain or shortness of breath. Hospital Course Patient was evaluated by CT surgery and recommendation for repeat cardiac catheterization after review of results from [facility]. Cardiology performed cath and recommended CABG. Patient was also found with uncontrolled diabetes mellitus and evaluated by diabetic nurses. He was started on insulin for better glucose control. Patient was taken for 3 vessel CABG and did not have any complications intraoperatively. Patient was difficult to extubated post procedure and Pulmonology was consulted for vent management. Patient was continued on pressor support due to hypotension but BP improved and eventually was started on Nitro drip given hypertension. Patient was successfully extubated and started back on PO medications once cleared by speech therapy. Patient underwent thoracentesis on 07/25 due to pleural effusion which he tolerated well. Patient continued to be monitored in ICU given complaints of c hest pain and ST changes on EKG as well as troponin bump. Patients pain resolved but was developing cough with shortness of breath. Medication adjustments were made with improvement in respiratory status. He was weaned off supplemental O2 and progressed well with physical therapy. On day of discharge, patients vitals and physical exam were stable. Patient improved during course of hospitalization and was discharged home in stable condition with home health services. Home Meds Active Scripts Front Wheel Walker* (Front Wheel Walker*) 1 Each Dme, EACH [facility] DIRECTED, #1 0 Refills Prov:KARINA MADDOX MD 08/02/18 Pen Needle, Diabetic (Insulin Pen Needle) 1 Each Dis.needle, EACH MC ACHS A, #120 9 Refills Prov:KARINA MADDOX MD 08/02/18 Empagliflozin (Jardiance) 10 Mg Tablet, 10 MG PO DAILY for 30 Days, #30 TAB 6 Refills Prov:KARINA MADDOX MD 08/02/18 Metformin Hcl* (Metformin Hcl*) 500 Mg Tablet, 500 MG PO WITH BREAKFAST DINNE for 30 Days, #60 TAB 6 Refills Prov:KARINA MADDOX MD 08/02/18 Albuterol Sulfate* (Proair HFA*) 8.5 Gm Hfa.aer.ad, 2 PUFF INH Q4H PRN for WHEEZING AND SOB, #1 INHALER 6 Refills Prov:KARINA MADDOX MD 08/02/18 Insulin Glargine,Hum.rec.anlog (Basaglar Kwikpen U-100) 100 Unit/1 Ml Insuln.pen, 22 UNIT SC DAILY for 30 Days, #12 EA 9 Refills Prov:KARINA MADDOX MD 08/02/18 Insulin Aspart* (Novolog Insulin Pen*) 100 Unit/Ml Soln, 12 UNIT SC WITH MEALS for 30 Days, #1 EACH 6 Refills Prov:KARINA MADDOX MD 08/02/18 Benzonatate* (Benzonatate*) 100 Mg Capsule, 100 MG PO TID PRN for cough for 30 Days, #90 CAP 2 Refills Prov:KARINA MADDOX MD 08/02/18 Saline (Deep Sea) 44 Ml [place], 2 SPRAY NASAL BID PRN for congestion for 30 Days, #1 BOT 6 Refills Prov:KARINA MADDOX MD 08/02/18 Bumetanide* (Bumetanide*) 1 Mg Tablet, 1 MG PO DAILY for 30 Days, #30 TAB 6 Refills Prov:KARINA MADDOX MD 08/02/18 Aspirin (Aspirin) 81 Mg Chew, 81 MG PO DAILY for 30 Days, #30 TAB 6 Refills Prov:KARINA MADDOX MD 08/02/18 Nitroglycerin* (Nitroglycerin* SL) 0.4 Mg Tab.subl, 1 TAB SL Q5M PRN for .CHEST PAIN for 30 Days, #120 TAB 3 Refills Prov:KARINA MADDOX MD 08/02/18 Spironolactone* (Aldactone*) 25 Mg Tablet, 25 MG PO DAILY for 30 Days, #30 TAB 6 Refills Prov:KARINA MADDOX MD 08/02/18 Metoprolol Succinate* (Toprol XL*) 50 Mg Tab.er.24h, 50 MG PO DAILY for 30 Days, #30 TAB 6 Refills Prov:KARINA MADDOX MD 08/02/18 Losartan Potassium* (Cozaar*) 25 Mg Tablet, 25 MG PO DAILY for 30 Days, #30 TAB 6 Refills Prov:KARINA MADDOX MD 08/02/18 Atorvastatin* (Atorvastatin*) 40 Mg Tablet, 40 MG PO HS for 30 Days, #30 TAB 6 Refills Prov:KARINA MADDOX MD 08/02/18 Follow-up Plan 1. Follow up with your primary care physician in 1 week 2. Follow up with Dr. Olivas in 1 week 3. You will need to follow a low sugar, low carb diet and continue to check your sugars to prevent complications from diabetes. You will need to take Basaglar 22 units in the morning and Novolog 12 units with meals in addition to Metformin twice a day and Jardiance in the morning. Follow up with your primary care physician for continued management of your medications 4. You will need to continue on all medications as prescribed for blood pressure control 5. If experiencing coughing or shortness of breath take Tessalon pearls and use inhaler as needed 6. If experiencing any concerning symptoms, go to your nearest emergency department Primary Care Provider Not On Staff Doctor Time spent on discharge: > 30 minutes Pending Labs Laboratory Tests Test 08/01/18 20:14 08/02/18 05:07 08/02/18 08:57 08/02/18 12:50 Bedside 89 114 126 Glucose mg/dL (70-220) mg/dL (70-220) mg/dL (70-220) White Blood 9.5 Count 10^3/ul (4.8-1 0.8) Red Blood 5.00 Count 10^6/ul (4.70- 6.10) Hemoglobin 14.1 g/dl (14.0-18. 0) Hematocrit 43.2 % (42.0-52.0) Mean 86.4 Corpuscular fl (82.0-101.0 Volume ) Mean 28.2 Corpuscular pg (29.0-33.0) Hemoglobin Mean 32.6 Corpuscular g/dl (32.0-37. Hemoglobin Conc 0) ent Red Cell 12.9 Distribution % (11.5-14.5) Width Platelet Count 254 10^3/UL (140-4 15) Mean Platelet 9.9 Volume fl (7.4-10.4) Immature 0.700 Granulocytes % % (0.001-0.429 ) Neutrophils % 64.7 % (39.0-77.0) Lymphocytes % 22.0 % (15.0-51.0) Monocytes % 9.5 % (0.0-11.0) Eosinophils % 2.8 % (0.0-7.0) Basophils % 0.3 % (0.0-2.0) Nucleated Red 0.0 Blood Cells % /100WBC (0.0-0 .0) Immature 0.070 Granulocytes # 10^3/ul (0.0-0 .031) Neutrophils # 6.1 10^3/ul (1.6-7 .5) Lymphocytes # 2.1 10^3/ul (0.8-2 .9) Monocytes # 0.9 10^3/ul (0.3-0 .9) Eosinophils # 0.3 10^3/ul (0.0-0 .5) Basophils # 0.0 10^3/ul (0.0-0 .1) Nucleated Red 0.0 Blood Cells # 10^3/ul (0.0-0 .0) Sodium Level 136 mmol/L (135-14 4) Potassium 4.5 Level mmol/L (3.5-5. 1) Chloride Level 93 mmol/L (97-110 ) Carbon Dioxide 31 Level mmol/L (21-31) Anion Gap 12 (5-13) Blood Urea 37 Nitrogen mg/dl (7-20) Creatinine 1.04 mg/dl (0.61-1. 24) Est Glomerular > 60 Filtrat mL/min (>60) Rate mL/min Glucose Level 127 mg/dl (70-220) Calcium Level 9.4 mg/dl (8.4-10. 2) Phosphorus 3.8 Level mg/dl (2.5-4.9 ) Magnesium 1.9 Level mg/dl (1.7-2.5 ) Total 1.6 Bilirubin mg/dl (0.2-1.3 ) Direct 0.00 Bilirubin mg/dl (0.00-0. 20) Indirect 1.6 Bilirubin mg/dl (0-1.1) Aspartate Amino 111 Transf (AST/SGO IU/L (15-46) T) Alanine 136 Aminotransferas IU/L (13-69) e (ALT/SGPT) Alkaline 159 Phosphatase IU/L (42-121) Total Protein 7.7 g/dl (6.1-8.1) Albumin 3.5 g/dl (3.3-4.9) Globulin 4.20 g/dl (1.3-3.2) Albumin/Globuli 0.83 n Ratio KARINA MADDOX MD Aug 02, 2018 17:48
== END 2018-08-02 15:52 | disposition home health service (06) | DRG 233 ==
LOC: 6WM 07-11 04:15 → ICU 07-20 18:52 → 6WM 07-27 14:53 → MS1 08-01 21:52
PROVIDERS: ADMIT Internal Medicine; ATTEND Internal Medicine
PROC: B211YZZ Fluoroscopy of Multiple Coronary Arteries using Other Contrast (ICD-10-PCS; 2018-07-17)
PROC: B241ZZ3 Ultrasonography of Multiple Coronary Arteries, Intravascular (ICD-10-PCS; 2018-07-17)
PROC: 4A023N7 Measurement of Cardiac Sampling and Pressure, Left Heart, Percutaneous Approach (ICD-10-PCS; 2018-07-17 15:00)
PROC: 06BP0ZZ Excision of Right Saphenous Vein, Open Approach (ICD-10-PCS; 2018-07-20)
PROC: 02100Z9 Bypass Coronary Artery, One Artery from Left Internal Mammary, Open Approach (ICD-10-PCS; 2018-07-20)
PROC: 5A1221Z Performance of Cardiac Output, Continuous (ICD-10-PCS; 2018-07-20)
PROC: 02HP32Z Insertion of Monitoring Device into Pulmonary Trunk, Percutaneous Approach (ICD-10-PCS; 2018-07-20)
PROC: 30233N1 Transfusion of Nonautologous Red Blood Cells into Peripheral Vein, Percutaneous Approach (ICD-10-PCS; 2018-07-20)
PROC: 30233R1 Transfusion of Nonautologous Platelets into Peripheral Vein, Percutaneous Approach (ICD-10-PCS; 2018-07-20)
PROC: 30233K1 Transfusion of Nonautologous Frozen Plasma into Peripheral Vein, Percutaneous Approach (ICD-10-PCS; 2018-07-20)
PROC: 021109W Bypass Coronary Artery, Two Arteries from Aorta with Autologous Venous Tissue, Open Approach (ICD-10-PCS; principal; 2018-07-20 11:00)
PROC: 0W9B3ZX Drainage of Left Pleural Cavity, Percutaneous Approach, Diagnostic (ICD-10-PCS; 2018-07-25)
DX: I25.110 Atherosclerotic heart disease of native coronary artery with unstable angina pectoris (principal); R57.0 Cardiogenic shock; J95.821 Acute postprocedural respiratory failure; T81.11XA Postprocedural cardiogenic shock, initial encounter; N17.9 Acute kidney failure, unspecified; E87.0 Hyperosmolality and hypernatremia; J90 Pleural effusion, not elsewhere classified; E11.65 Type 2 diabetes mellitus with hyperglycemia; Y83.2 Surgical operation with anastomosis, bypass or graft as the cause of abnormal reaction of the patient, or of later complication, without mention of misadventure at the time of the procedure; E87.6 Hypokalemia; R50.82 Postprocedural fever; R13.10 Dysphagia, unspecified; D64.9 Anemia, unspecified; I11.0 Hypertensive heart disease with heart failure; I50.9 Heart failure, unspecified; Z87.891 Personal history of nicotine dependence; Z79.4 Long term (current) use of insulin
CPT/HCPCS: 36430; 36592; 36600; 71045; 71250; 76705; 76942; 80048; 80053; 80069; 80202; 81001; 81003; 82043; 82550; 82553; 82803; 82945; 82962; 83036; 83615; 83735; 83880; 83935; 84100; 84132; 84155; 84157; 84300; 84484; 85025; 85049; 85576; 85610; 85730; 86644; 86850; 86900; 86901; 86920; 87040; 87070; 87081; 87086; 87102; 87116; 88104; 88305; 89051; 92526; 92610; 92978; 93005; 93306; 93454; 93880; 94002; 94003; 94640; 94664; 94770; 97116; 97163; 97530; C1760; C1887; C1894; C9113; J0171; J0360; J0461; J0583; J0690; J0692; J1250; J1265; J1644; J1650; J1815; J1940; J2001; J2250; J2260; J2270; J2370; J2405; J2440; J2543; J2720; J3010; J3370; J3475; J3480; J7030; J7040; J7050; J7070; P9016; P9035; P9045; P9047; P9059; Q9967

== ENCOUNTER 2018-08-14 12:39 | Inpatient (IN) | payer OTHER ==
[~2018-08-14] VITALS: Ht 157.5 cm; Wt 56.2 kg
[~2018-08-14 12:39] MED LIST: ALBU8.5H8 INH; ASPI-831 PO; ATOR40TA68 PO; BENZ-5 PO; BUME1TAB PO; EMPA10TA PO; INSU100I33 SC; LOSA25TA2 PO; METF500T24 PO; METO-319 PO; NITR0.4T32 SL; NOVO3I SC; PEN1DIS.48 MC; SODI44SP19 NASAL; SPIR25TA PO; WALK1EAC23 MC
[2018-08-14 17:30] VITALS: Ht 157.5 cm; Wt 56.2 kg
[2018-08-14] MEDS ORDERED: NACL 0.9% 3 ML SYG IV SCH (17:30)
[2018-08-14] MEDS ORDERED: HYDROCODONE/APAP (5/325) TAB PO PRN (17:30)
[2018-08-14 17:40] VITALS: BP 114/69; PULSE 72; RESP 18
--- NOTE | 2018-08-14 18:16 | HP ---
Date/Time of Note Date/Time of Note DATE: 08/14/18 TIME: 18:09 Assessment/Plan VTE Prophylaxis SCD applied (from Nsg): Yes Pharmacological prophylaxis: heparin Assessment/Plan Hospital Course 68 yo male with h/o DMII, CAD s/p CABG 06/2018 who presents with chest tightness and SOB. 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 Underwent CABG by Dr Olivas. Had difficult time being extubated. Required thoracentesis. Eventually discharged. Over past few days has had chest tightness with SOB and burning. Went to [facility] where found to have troponin 0.2 -> 0.1 with biphasic TWI in V2. CXR showed L sided effusion. He was given aspirin and lasix 20 IV and transferred for management Currently feels well, no complaints ROS Constitutional: no complaints, improved Eyes: no complaints ENT: no complaints Respiratory: no complaints Cardiovascular: no complaints Gastrointestinal: no complaints Genitourinary: no complaints Musculoskeletal: no complaints Skin: no complaints Neurologic: no complaints Endocrine: no complaints Lymphatic: no complaints Psychological: no complaints, nl mood/affect Immunologic: no complaints PMH/Family/Social Past Medical History Medical History: coronary artery disease, diabetes Medications Current Medications IV Flush (NS 3 ml) 3 ml PER PROTOCOL IV ; Start 08/14/18 at 17:30 Acetaminophen/ Hydrocodone Bitart ([place] (5/325)) 1 tab Q6H PRN PO .MOD PAIN 4- 6; Start 08/14/18 at 17:30 Bumetanide (Bumex) 1 mg BID DIURETICS IV ; Start 08/14/18 at 18:00 Coded Allergies: No Known Allergy (Unverified , 07/20/18) Past Surgical History CABG Past Surgical Hx: no surgical history Family History Significant Family History: no pertinent family hx Social History Alcohol Use: none Smoking Status: Never smoker Drug Use: none Exam/Review of Systems Vital Signs Vitals Vital Signs Date Temp Pulse Resp B/P (MAP) Pulse Ox O2 O2 Flow FiO2 Time Delivery Rate 08/14/18 98.6 72 18 114/69 92 Room Air 17:40 (84) Exam Exam Alert oriented x 3 No distress + JVD RRR Breathing comfortably Abdomen soft nt nd Ext warm without edema CUAUHTEMOC WING MD Aug 14, 2018 18:16
[2018-08-14] MEDS: BUMETANIDE 1 MG INJ IV SCH (18:27)
[2018-08-14] MEDS ORDERED: BENZONATATE 100 MG CAP PO PRN (18:30)
[2018-08-14] MEDS ORDERED: GLUCOSE GEL 15 GRAM TUBE PO PRN ×2 (19:00)
[2018-08-14] MEDS ORDERED: GLUCOSE GEL 15 GRAM TUBE BUCCAL PRN (19:00)
[2018-08-14] MEDS ORDERED: GLUCAGON 1 MG INJ IM PRN (19:00)
[2018-08-14] MEDS ORDERED: DEXTROSE 50% 50 ML SYRINGE IV PRN ×2 (19:00)
[2018-08-14 20:00] VITALS: BP 124/73; PULSE 106; PULSE 98; RESP 17
[2018-08-14] MEDS ORDERED: INSULIN GLARGINE [LANTus] (100 UNITS/ML) SYG SC SCH ×2 (20:00)
[2018-08-14] MEDS: ATORVASTATIN 40 MG TAB PO SCH (21:00)
[2018-08-14] MEDS: INSULIN ASPART [NOVOLOG] 3 ML PEN SC SCH (22:33)
[2018-08-15] VITALS (11 sets, daily range): BP systolic 95–122; BP diastolic 58–79; PULSE 64–98; RESP 17–20
[2018-08-15] MEDS ORDERED: morphine 2 MG INJ IV PRN (04:30)
[2018-08-15] MEDS: BUMETANIDE 1 MG INJ IV SCH ×2 (06:31→17:47)
[2018-08-15] MEDS: INSULIN ASPART [NOVOLOG] 3 ML PEN SC SCH ×8 (07:55→21:00)
[2018-08-15] MEDS: ASPIRIN 81 MG TAB PO SCH (08:14)
[2018-08-15] MEDS: metFORMIN 500 MG TAB PO SCH ×2 (08:14→17:46)
[2018-08-15] MEDS: LOSARTAN 25 MG TAB PO SCH (08:15)
[2018-08-15] MEDS: METOPROLOL (XL) 50 MG TAB PO SCH (08:15)
[2018-08-15] MEDS: SPIRONOLACTONE 25 MG TAB PO SCH (08:15)
--- NOTE | 2018-08-15 11:16 | CONS ---
Assessment/Plan Assessment/Plan Assessment/Plan (Daily) 1. atypical chest pain 2. Multivessel coronary artery disease 3. 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 Diabetes 5. History of hypertension 6. Anemia 7. Postop respiratory failure currently intubated 8. Preserved LV function 9. elevated troponin Plan: elevated troponin may be residual from previous surgery diuresis echo venous duplex Consultation Date/Type/Reason Admit Date/Time Aug 14, 2018 at 16:57 Type of Consult Cardiology Date/Time of Note DATE: 08/15/18 TIME: 11:13 Hx of Present Illness admitted with vomiting followed by chest pain, now able to lie supine, no sob, no chest pain Eyes: no complaints ENT: no complaints Respiratory: no complaints Cardiovascular: no complaints Gastrointestinal: no complaints Musculoskeletal: no complaints Skin: no complaints Neurologic: no complaints Past Medical History Medical History: congestive heart failure, coronary artery disease, high cholesterol, hypertension Home Meds Active Scripts Front Wheel Walker* (Front Wheel Walker*) 1 Each Dme, EACH [facility] DIRECTED, #1 0 Refills Prov:KARINA MADDOX MD 08/02/18 Pen Needle, Diabetic (Insulin Pen Needle) 1 Each Dis.needle, EACH MC ACHS A, #120 9 Refills Prov:KARINA MADDOX MD 08/02/18 Empagliflozin (Jardiance) 10 Mg Tablet, 10 MG PO DAILY for 30 Days, #30 TAB 6 Refills Prov:KARINA MADDOX MD 08/02/18 Metformin Hcl* (Metformin Hcl*) 500 Mg Tablet, 500 MG PO WITH BREAKFAST DINNE for 30 Days, #60 TAB 6 Refills Prov:KARINA MADDOX MD 08/02/18 Albuterol Sulfate* (Proair HFA*) 8.5 Gm Hfa.aer.ad, 2 PUFF INH Q4H PRN for WHEEZING AND SOB, #1 INHALER 6 Refills Prov:KARINA MADDOX MD 08/02/18 Insulin Glargine,Hum.rec.anlog (Basaglar Kwikpen U-100) 100 Unit/1 Ml Insuln.pen, 22 UNIT SC DAILY for 30 Days, #12 EA 9 Refills Prov:KARINA MADDOX MD 08/02/18 Insulin Aspart* (Novolog Insulin Pen*) 100 Unit/Ml Soln, 12 UNIT SC WITH MEALS for 30 Days, #1 EACH 6 Refills Prov:KARINA MADDOX MD 08/02/18 Benzonatate* (Benzonatate*) 100 Mg Capsule, 100 MG PO TID PRN for cough for 30 Days, #90 CAP 2 Refills Prov:KARINA MADDOX MD 08/02/18 Saline ([place]) 44 Ml [place], 2 SPRAY NASAL BID PRN for congestion for 30 Days, #1 BOT 6 Refills Prov:KARINA MADDOX MD 08/02/18 Bumetanide* (Bumetanide*) 1 Mg Tablet, 1 MG PO DAILY for 30 Days, #30 TAB 6 Refills Prov:KARINA MADDOX MD 08/02/18 Aspirin (Aspirin) 81 Mg Chew, 81 MG PO DAILY for 30 Days, #30 TAB 6 Refills Prov:KARINA MADDOX MD 08/02/18 Nitroglycerin* (Nitroglycerin* SL) 0.4 Mg Tab.subl, 1 TAB SL Q5M PRN for .CHEST PAIN for 30 Days, #120 TAB 3 Refills Prov:KARINA MADDOX MD 08/02/18 Spironolactone* (Aldactone*) 25 Mg Tablet, 25 MG PO DAILY for 30 Days, #30 TAB 6 Refills Prov:KARINA MADDOX MD 08/02/18 Metoprolol Succinate* (Toprol XL*) 50 Mg Tab.er.24h, 50 MG PO DAILY for 30 Days, #30 TAB 6 Refills Prov:KARINA MADDOX MD 08/02/18 Losartan Potassium* (Cozaar*) 25 Mg Tablet, 25 MG PO DAILY for 30 Days, #30 TAB 6 Refills Prov:KARINA MADDOX MD 08/02/18 Atorvastatin* (Atorvastatin*) 40 Mg Tablet, 40 MG PO HS for 30 Days, #30 TAB 6 Refills Prov:KARINA MADDOX MD 08/02/18 Medications Current Medications IV Flush (NS 3 ml) 3 ml PER PROTOCOL IV ; Start 08/14/18 at 17:30 Acetaminophen/ Hydrocodone Bitart ([place] (5/325)) 1 tab Q6H PRN PO .MOD PAIN 4-6; Start 08/14/18 at 17:30 Bumetanide (Bumex) 1 mg BID DIURETICS IV Last administered on 08/15/18at 06:31; Admin Dose 1 MG; Start 08/14/18 at 18:00 Insulin Aspart (Novolog Insulin Pen) 4 unit WITH MEALS SC Last administered on 08/15/18 08:16; Admin Dose 4 UNIT; Start 08/15/18 at 07:55 Insulin Aspart (Novolog Insulin Pen) NOVOLOG *MODERATE* ALGORITHM WITH MEALS BEDTIME SC Last administered on 08/14/18at 22:33; Admin Dose 8 UNIT; Start 08/14/18 at 21:00 Aspirin (Aspirin) 81 mg DAILY PO Last administered on 08/15/18at 08:14; Admin Dose 81 MG; Start 08/15/18 at 09:00 Atorvastatin Calcium (Lipitor) 40 mg HS PO Last administered on 08/14/18at 21:00; Admin Dose 40 MG; Start 08/14/18 at 21:00 Benzonatate (Tessalon) 100 mg TID PRN PO cough; Start 08/14/18 at 18:30 Losartan Potassium (Cozaar) 25 mg DAILY PO Last administered on 08/15/18at 08:15; Admin Dose 25 MG; Start 08/15/18 at 09:00 Metformin HCl (Glucophage) 500 mg WITH BREAKFAST DINNE PO Last administered on 08/15/18at 08:14; Admin Dose 500 MG; Start 08/15/18 at 07:55 Metoprolol Succinate (Toprol Xl) 50 mg DAILY PO Last administered on 08/15/18 08:15; Admin Dose 50 MG; Start 08/15/18 at 09:00 Spironolactone (Aldactone) 25 mg DAILY PO Last administered on 08/15/18at 08:15; Admin Dose 25 MG; Start 08/15/18 at 09:00 Miscellaneous Information 1 ea NOTE XX ; Start 08/14/18 at 19:00 Glucose (Glutose) 15 gm Q15M PRN PO DECREASED GLUCOSE; Start 08/14/18 at 19:00 Glucose (Glutose) 22.5 gm Q15M PRN PO DECREASED GLUCOSE; Start 08/14/18 at 19:00 Dextrose (D50w Syringe) 25 ml Q15M PRN IV DECREASED GLUCOSE; Start 08/14/18 at 19:00 Dextrose (D50w Syringe) 50 ml Q15M PRN IV DECREASED GLUCOSE; Start 08/14/18 at 19:00 Glucagon (Glucagen) 1 mg Q15M PRN IM DECREASED GLUCOSE; Start 08/14/18 at 19:00 Glucose (Glutose) 15 gm Q15M PRN BUCCAL DECREASED GLUCOSE; Start 08/14/18 at 19:00 Acetaminophen (Tylenol Tab) 650 mg Q4H PRN PO MILD PAIN(1-3)OR ELEVATED TEMP; Start 08/15/18 at 00:00 Morphine Sulfate (morphine) 2 mg Q4H PRN IV SEVERE PAIN LEVEL 7-10; Start 08/15/18 at 04:30 Insulin Glargine (Lantus) 25 units DAILY@2000 SC ; Start 08/15/18 at 20:00 Allergies: Coded Allergies: No Known Allergy (Unverified , 07/20/18) Past Surgical History Past Surgical Hx: no surgical history Social History Alcohol Use: none Smoking Status: Never smoker Drug Use: none Exam/Review of Systems Vital Signs Vitals Vital Signs Date Temp Pulse Resp B/P (MAP) Pulse Ox O2 O2 Flow FiO2 Time Delivery Rate 08/15/18 98 08:01 08/15/18 98.5 17 115/79 97 07:17 (91) 08/14/18 Room Air 17:40 Intake and Output 08/14/18 08/14/18 08/15/18 1515:00 23:00 07:00 IntakeIntake Total 300 ml OutputOutput Total 800 ml BalanceBalance -500 ml Exam Constitutional: alert, oriented Head: normocephalic, atraumatic Neck: jvd Respiratory: diminished breath sounds Cardiovascular: regular rate and rhythm Musculoskeletal: nl extremities to inspection Extremities: normal pulses Labs Result Diagram: 08/15/18 0621 08/15/18 0621 Results 24hrs Laboratory Tests Test 08/14/18 18:38 08/14/18 20:33 08/15/18 02:24 08/15/18 06:21 Creatine Kinase 33 28 Creatine Kinase 1.6 2.2 Index Creatinine Kinase MB 0.52 0.61 (Mass) Troponin I 0.052 0.068 Bedside Glucose 413 *H 127 White Blood Count 7.8 Red Blood Count 5.20 Hemoglobin 14.6 Hematocrit 43.9 Mean Corpuscular 84.4 Volume Mean Corpuscular 28.1 L Hemoglobin Mean Corpuscular 33.3 Hemoglobin Concent Red Cell 12.5 Distribution Width Platelet Count 118 #L Mean Platelet Volume 10.9 H Immature 0.300 Granulocytes % Neutrophils % 53.0 Lymphocytes % 31.5 Monocytes % 7.4 Eosinophils % 7.3 H Basophils % 0.5 Nucleated Red Blood 0.0 Cells % Immature 0.020 Granulocytes # Neutrophils # 4.2 Lymphocytes # 2.5 Monocytes # 0.6 Eosinophils # 0.6 H Basophils # 0.0 Nucleated Red Blood 0.0 Cells # Sodium Level 137 Potassium Level 4.5 Chloride Level 95 L Carbon Dioxide Level 30 Anion Gap 12 Blood Urea Nitrogen 42 H Creatinine 0.92 Est Glomerular > 60 Filtrat Rate mL/min Glucose Level 183 Hemoglobin A1c 9.1 H Calcium Level 9.8 Total Bilirubin 1.0 Direct Bilirubin 0.00 Indirect Bilirubin 1.0 Aspartate Amino 43 Transf (AST/SGOT) Alanine 45 Aminotransferase (AL T/SGPT) Alkaline Phosphatase 166 H Total Protein 7.8 Albumin 3.8 Globulin 4.00 H Albumin/Globulin 0.95 Ratio Test 08/15/18 08:09 Bedside Glucose 140 Medications Medications Current Medications IV Flush (NS 3 ml) 3 ml PER PROTOCOL IV ; Start 08/14/18 at 17:30 Acetaminophen/ Hydrocodone Bitart ([place] (5/325)) 1 tab Q6H PRN PO .MOD PAIN 4- 6; Start 08/14/18 at 17:30 Bumetanide (Bumex) 1 mg BID DIURETICS IV Last administered on 08/15/18at 06:31; Admin Dose 1 MG; Start 08/14/18 at 18:00 Insulin Aspart (Novolog Insulin Pen) 4 unit WITH MEALS SC Last administered on 08/15/18at 08:16; Admin Dose 4 UNIT; Start 08/15/18 at 07:55 Insulin Aspart (Novolog Insulin Pen) NOVOLOG *MODERATE* ALGORITHM WITH MEALS BEDTIME SC Last administered on 08/14/18at 22:33; Admin Dose 8 UNIT; Start 08/14/18 at 21:00 Aspirin (Aspirin) 81 mg DAILY PO Last administered on 08/15/18at 08:14; Admin Dose 81 MG; Start 08/15/18 at 09:00 Atorvastatin Calcium (Lipitor) 40 mg HS PO Last administered on 08/14/18at 21:00; Admin Dose 40 MG; Start 08/14/18 at 21:00 Benzonatate (Tessalon) 100 mg TID PRN PO cough; Start 08/14/18 at 18:30 Losartan Potassium (Cozaar) 25 mg DAILY PO Last administered on 08/15/18at 08:15; Admin Dose 25 MG; Start 08/15/18 at 09:00 Metformin HCl (Glucophage) 500 mg WITH BREAKFAST DINNE PO Last administered on 08/15/18at 08:14; Admin Dose 500 MG; Start 08/15/18 at 07:55 Metoprolol Succinate (Toprol Xl) 50 mg DAILY PO Last administered on 08/15/18at 08:15; Admin Dose 50 MG; Start 08/15/18 at 09:00 Spironolactone (Aldactone) 25 mg DAILY PO Last administered on 08/15/18at 08:15; Admin Dose 25 MG; Start 08/15/18 at 09:00 Miscellaneous Information 1 ea NOTE XX ; Start 08/14/18 at 19:00 Glucose (Glutose) 15 gm Q15M PRN PO DECREASED GLUCOSE; Start 08/14/18 at 19:00 Glucose (Glutose) 22.5 gm Q15M PRN PO DECREASED GLUCOSE; Start 08/14/18 at 19:00 Dextrose (D50w Syringe) 25 ml Q15M PRN IV DECREASED GLUCOSE; Start 08/14/18 at 19:00 Dextrose (D50w Syringe) 50 ml Q15M PRN IV DECREASED GLUCOSE; Start 08/14/18 at 19:00 Glucagon (Glucagen) 1 mg Q15M PRN IM DECREASED GLUCOSE; Start 08/14/18 at 19:00 Glucose (Glutose) 15 gm Q15M PRN BUCCAL DECREASED GLUCOSE; Start 08/14/18 at 19:00 Acetaminophen (Tylenol Tab) 650 mg Q4H PRN PO MILD PAIN(1-3)OR ELEVATED TEMP; Start 08/15/18 at 00:00 Morphine Sulfate (morphine) 2 mg Q4H PRN IV SEVERE PAIN LEVEL 7-10; Start 08/15/18 at 04:30 Insulin Glargine (Lantus) 25 units DAILY@2000 SC ; Start 08/15/18 at 20:00 VIKTORIYA DE LEÓN MD Aug 15, 2018 11:15
[2018-08-15] MEDS: ACETAMINOPHEN 325 MG TAB PO PRN ×2 (11:49→23:40)
--- NOTE | 2018-08-15 16:31 | PN ---
Date/Time of Note Date/Time of Note DATE: 08/15/18 TIME: 16:31 Assessment/Plan VTE Prophylaxis Risk score (from Ns)>0 risk: 3 SCD applied (from Nsg): Yes Pharmacological prophylaxis: heparin Lines/Catheters IV [facility] Type [facility]from [facility] [place]ine Lock Assessment/Plan Hospital Course 68 yo male with h/o DMII, CAD s/p CABG 06/2018 who presents with chest tightness and SOB. 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 - TTE Acute diastolic CHF: - Continue diuretics DMII: - Basal/bolus insulin Discharge plan pending workup and management Result Diagram: 08/15/1821 08/15/18 0621 Results 24hrs Laboratory Tests Test 08/14/18 18:38 08/14/18 20:33 08/15/18 02:24 08/15/18 06:21 Creatine Kinase 33 28 Creatine Kinase 1.6 2.2 Index Creatinine Kinase MB 0.52 0.61 (Mass) Troponin I 0.052 0.068 Bedside Glucose 413 *H 127 White Blood Count 7.8 Red Blood Count 5.20 Hemoglobin 14.6 Hematocrit 43.9 Mean Corpuscular 84.4 Volume Mean Corpuscular 28.1 L Hemoglobin Mean Corpuscular 33.3 Hemoglobin Concent Red Cell 12.5 Distribution Width Platelet Count 118 #L Mean Platelet Volume 10.9 H Immature 0.300 Granulocytes % Neutrophils % 53.0 Lymphocytes % 31.5 Monocytes % 7.4 Eosinophils % 7.3 H Basophils % 0.5 Nucleated Red Blood 0.0 Cells % Immature 0.020 Granulocytes # Neutrophils # 4.2 Lymphocytes # 2.5 Monocytes # 0.6 Eosinophils # 0.6 H Basophils # 0.0 Nucleated Red Blood 0.0 Cells # Sodium Level 137 Potassium Level 4.5 Chloride Level 95 L Carbon Dioxide Level 30 Anion Gap 12 Blood Urea Nitrogen 42 H Creatinine 0.92 Est Glomerular > 60 Filtrat Rate mL/min Glucose Level 183 Hemoglobin A1c 9.1 H Calcium Level 9.8 Total Bilirubin 1.0 Direct Bilirubin 0.00 Indirect Bilirubin 1.0 Aspartate Amino 43 Transf (AST/SGOT) Alanine 45 Aminotransferase (AL T/SGPT) Alkaline Phosphatase 166 H Total Protein 7.8 Albumin 3.8 Globulin 4.00 H Albumin/Globulin 0.95 Ratio Test 08/15/18 08:09 08/15/18 11:35 Bedside Glucose 140 140 Subjective 24 Hr Interval Summary Free Text/Dictation Continues to have mild SOB, XR with L pleural effusion Exam/Review of Systems Exam Vitals Vital Signs Date Temp Pulse Resp B/P (MAP) Pulse Ox O2 O2 Flow FiO2 Time Delivery Rate 08/15/18 72 12:01 08/15/18 97.9 17 101/67 94 11:18 (78) 08/14/18 Room Air 17:40 Intake and Output 08/14/18 08/14/18 08/15/18 1515:00 23:00 07:00 IntakeIntake Total 300 ml OutputOutput Total 800 ml BalanceBalance -500 ml Constitutional: alert, oriented, well developed Psych: no complaints, nl mood/affect Head: normocephalic, atraumatic Eyes: nl conjunctiva, EOMI, nl lids, nl sclera, PERRL ENMT: nl external ears & nose, nl lips & teeth, nl nasal mucosa & septum Neck: supple, non-tender Respiratory: clear to auscultation, normal air movement Cardiovascular: regular rate and rhythm, nl pulses Gastrointestinal: soft, nl liver, spleen, non-tender Musculoskeletal: nl extremities to inspection, nl gait and stance Extremities: normal pulses Neurological: CINETECHNICIAN II-XII intact, nl mental status, nl speech, nl strength Skin: nl turgor; No rash or lesions Lymph: nl lymph nodes Results Results 24hrs Laboratory Tests Test 08/14/18 18:38 08/14/18 20:33 08/15/18 02:24 08/15/18 06:21 Creatine Kinase 33 28 Creatine Kinase 1.6 2.2 Index Creatinine Kinase MB 0.52 0.61 (Mass) Troponin I 0.052 0.068 Bedside Glucose 413 *H 127 White Blood Count 7.8 Red Blood Count 5.20 Hemoglobin 14.6 Hematocrit 43.9 Mean Corpuscular 84.4 Volume Mean Corpuscular 28.1 L Hemoglobin Mean Corpuscular 33.3 Hemoglobin Concent Red Cell 12.5 Distribution Width Platelet Count 118 #L Mean Platelet Volume 10.9 H Immature 0.300 Granulocytes % Neutrophils % 53.0 Lymphocytes % 31.5 Monocytes % 7.4 Eosinophils % 7.3 H Basophils % 0.5 Nucleated Red Blood 0.0 Cells % Immature 0.020 Granulocytes # Neutrophils # 4.2 Lymphocytes # 2.5 Monocytes # 0.6 Eosinophils # 0.6 H Basophils # 0.0 Nucleated Red Blood 0.0 Cells # Sodium Level 137 Potassium Level 4.5 Chloride Level 95 L Carbon Dioxide Level 30 Anion Gap 12 Blood Urea Nitrogen 42 H Creatinine 0.92 Est Glomerular > 60 Filtrat Rate mL/min Glucose Level 183 Hemoglobin A1c 9.1 H Calcium Level 9.8 Total Bilirubin 1.0 Direct Bilirubin 0.00 Indirect Bilirubin 1.0 Aspartate Amino 43 Transf (AST/SGOT) Alanine 45 Aminotransferase (AL T/SGPT) Alkaline Phosphatase 166 H Total Protein 7.8 Albumin 3.8 Globulin 4.00 H Albumin/Globulin 0.95 Ratio Test 08/15/18 08:09 08/15/18 11:35 Bedside Glucose 140 140 Medications Medication Current Medications IV Flush (NS 3 ml) 3 ml PER PROTOCOL IV ; Start 08/14/18 at 17:30 Acetaminophen/ Hydrocodone Bitart ([place] (5/325)) 1 tab Q6H PRN PO .MOD PAIN 4-6; Start 08/14/18 at 17:30 Bumetanide (Bumex) 1 mg BID DIURETICS IV Last administered on 08/15/18at 06:31; Admin Dose 1 MG; Start 08/14/18 at 18:00 Insulin Aspart (Novolog Insulin Pen) 4 unit WITH MEALS SC Last administered on 08/15/18at 08:16; Admin Dose 4 UNIT; Start 08/15/18 at 07:55 Insulin Aspart (Novolog Insulin Pen) NOVOLOG *MODERATE* ALGORITHM WITH MEALS BEDTIME SC Last administered on 08/14/18at 22:33; Admin Dose 8 UNIT; Start 08/14/18 at 21:00 Aspirin (Aspirin) 81 mg DAILY PO Last administered on 08/15/18at 08:14; Admin Dose 81 MG; Start 08/15/18 at 09:00 Atorvastatin Calcium (Lipitor) 40 mg HS PO Last administered on 08/14/18at 21:00; Admin Dose 40 MG; Start 08/14/18 at 21:00 Benzonatate (Tessalon) 100 mg TID PRN PO cough; Start 08/14/18 at 18:30 Losartan Potassium (Cozaar) 25 mg DAILY PO Last administered on 08/15/18at 08:15; Admin Dose 25 MG; Start 08/15/18 at 09:00 Metformin HCl (Glucophage) 500 mg WITH BREAKFAST DINNE PO Last administered on 08/15/18at 08:14; Admin Dose 500 MG; Start 08/15/18 at 07:55 Metoprolol Succinate (Toprol Xl) 50 mg DAILY PO Last administered on 08/15/18at 08:15; Admin Dose 50 MG; Start 08/15/18 at 09:00 Spironolactone (Aldactone) 25 mg DAILY PO Last administered on 08/15/18 08:15; Admin Dose 25 MG; Start 08/15/18 at 09:00 Miscellaneous Information 1 ea NOTE XX ; Start 08/14/18 at 19:00 Glucose (Glutose) 15 gm Q15M PRN PO DECREASED GLUCOSE; Start 08/14/18 at 19:00 Glucose (Glutose) 22.5 gm Q15M PRN PO DECREASED GLUCOSE; Start 08/14/18 at 19:00 Dextrose (D50w Syringe) 25 ml Q15M PRN IV DECREASED GLUCOSE; Start 08/14/18 at 19:00 Dextrose (D50w Syringe) 50 ml Q15M PRN IV DECREASED GLUCOSE; Start 08/14/18 at 19:00 Glucagon (Glucagen) 1 mg Q15M PRN IM DECREASED GLUCOSE; Start 08/14/18 at 19:00 Glucose (Glutose) 15 gm Q15M PRN BUCCAL DECREASED GLUCOSE; Start 08/14/18 at 19:00 Acetaminophen (Tylenol Tab) 650 mg Q4H PRN PO MILD PAIN(1-3)OR ELEVATED TEMP Last administered on 08/15/18at 11:49; Admin Dose 650 MG; Start 08/15/18 at 00:00 Morphine Sulfate (morphine) 2 mg Q4H PRN IV SEVERE PAIN LEVEL 7-10; Start 08/15/18 at 04:30 Insulin Glargine (Lantus) 25 units DAILY@2000 SC ; Start 08/15/18 at 20:00 CUAUHTEMOC WING MD Aug 15, 2018 16:31
[2018-08-15] MEDS: INSULIN GLARGINE [LANTus] (100 UNITS/ML) SYG SC SCH (21:27)
[2018-08-15] MEDS: ATORVASTATIN 40 MG TAB PO SCH (21:29)
[2018-08-16] VITALS (15 sets, daily range): BP systolic 86–118; BP diastolic 56–75; PULSE 68–100; RESP 18
[2018-08-16] MEDS: BUMETANIDE 1 MG INJ IV SCH ×2 (06:31→18:46)
[2018-08-16] MEDS: INSULIN ASPART [NOVOLOG] 3 ML PEN SC SCH ×7 (07:55→21:39)
[2018-08-16] MEDS: metFORMIN 500 MG TAB PO SCH ×2 (08:16→18:46)
[2018-08-16] MEDS: METOPROLOL (XL) 50 MG TAB PO SCH (08:19)
[2018-08-16] MEDS: SPIRONOLACTONE 25 MG TAB PO SCH (08:19)
[2018-08-16] MEDS: LOSARTAN 25 MG TAB PO SCH (08:20)
[2018-08-16] MEDS: ASPIRIN 81 MG TAB PO SCH (08:20)
[2018-08-16] MEDS: ONDANSETRON 4 MG INJ IV PRN (10:26)
--- NOTE | 2018-08-16 11:39 | CONS ---
Assessment/Plan Assessment/Plan Assessment/Plan (Daily) Status post coronary artery bypass CHF Pleural effusion We will proceed with the ultrasound guidance thoracentesis if there is enough fluid to be drained Treatment of CHF Discharge planning Consultation Date/Type/Reason Admit Date/Time Aug 14, 2018 at 16:57 Date of Consultation: Aug 16, 2018 Type of Consult Pleural effusion Reason for Consultation Pleural effusion Date/Time of Note DATE: 08/16/18 TIME: 11:37 Hx of Present Illness This is a patient known to me he is a 68-year-old male status post coronary artery bypass grafting he is now being admitted because of shortness of breath chest x-ray has showed a pleural effusion patient is scheduled to undergo a thoracentesis Cardiovascular: no complaints Gastrointestinal: no complaints Genitourinary: no complaints Musculoskeletal: no complaints Skin: no complaints Past Medical History Medical History: coronary artery disease, diabetes Home Meds Active Scripts Front Wheel Walker* (Front Wheel Walker*) 1 Each Dme, EACH [facility] DIRECTED, #1 0 Refills Prov:KARINA MADDOX MD 08/02/18 Pen Needle, Diabetic (Insulin Pen Needle) 1 Each Dis.needle, EACH MC ACHS A, #120 9 Refills Prov:KARINA MADDOX MD 08/02/18 Empagliflozin (Jardiance) 10 Mg Tablet, 10 MG PO DAILY for 30 Days, #30 TAB 6 Refills Prov:KARINA MADDOX MD 08/02/18 Metformin Hcl* (Metformin Hcl*) 500 Mg Tablet, 500 MG PO WITH BREAKFAST DINNE for 30 Days, #60 TAB 6 Refills Prov:KARINA MADDOX MD 08/02/18 Albuterol Sulfate* (Proair HFA*) 8.5 Gm Hfa.aer.ad, 2 PUFF INH Q4H PRN for WHEEZING AND SOB, #1 INHALER 6 Refills Prov:KARINA MADDOX MD 08/02/18 Insulin Glargine,Hum.rec.anlog (Basaglar Kwikpen U-100) 100 Unit/1 Ml Insuln.pen, 22 UNIT SC DAILY for 30 Days, #12 EA 9 Refills Prov:KARINA MADDOX MD 08/02/18 Insulin Aspart* (Novolog Insulin Pen*) 100 Unit/Ml Soln, 12 UNIT SC WITH MEALS for 30 Days, #1 EACH 6 Refills Prov:KARINA MADDOX MD 08/02/18 Benzonatate* (Benzonatate*) 100 Mg Capsule, 100 MG PO TID PRN for cough for 30 Days, #90 CAP 2 Refills Prov:KARINA MADDOX MD 08/02/18 Saline (Deep Sea) 44 Ml [place], 2 SPRAY NASAL BID PRN for congestion for 30 Days, #1 BOT 6 Refills Prov:KARINA MADDOX MD 08/02/18 Bumetanide* (Bumetanide*) 1 Mg Tablet, 1 MG PO DAILY for 30 Days, #30 TAB 6 Re fills Prov:KARINA MADDOX MD 08/02/18 Aspirin (Aspirin) 81 Mg Chew, 81 MG PO DAILY for 30 Days, #30 TAB 6 Refills Prov:KARINA MADDOX MD 08/02/18 Nitroglycerin* (Nitroglycerin* SL) 0.4 Mg Tab.subl, 1 TAB SL Q5M PRN for .CHEST PAIN for 30 Days, #120 TAB 3 Refills Prov:KARINA MADDOX MD 08/02/18 Spironolactone* (Aldactone*) 25 Mg Tablet, 25 MG PO DAILY for 30 Days, #30 TAB 6 Refills Prov:KARINA MADDOX MD 08/02/18 Metoprolol Succinate* (Toprol XL*) 50 Mg Tab.er.24h, 50 MG PO DAILY for 30 Days, #30 TAB 6 Refills Prov:KARINA MADDOX MD 08/02/18 Losartan Potassium* (Cozaar*) 25 Mg Tablet, 25 MG PO DAILY for 30 Days, #30 TAB 6 Refills Prov:KARINA MADDOX MD 08/02/18 Atorvastatin* (Atorvastatin*) 40 Mg Tablet, 40 MG PO HS for 30 Days, #30 TAB 6 Refills Prov:KARINA MADDOX MD 08/02/18 Medications Current Medications IV Flush (NS 3 ml) 3 ml PER PROTOCOL IV ; Start 08/14/18 at 17:30 Acetaminophen/ Hydrocodone Bitart ([place] (5/325)) 1 tab Q6H PRN PO .MOD PAIN 4- 6; Start 08/14/18 at 17:30 Bumetanide (Bumex) 1 mg BID DIURETICS IV Last administered on 08/16/18at 06:31; Admin Dose 1 MG; Start 08/14/18 at 18:00 Insulin Aspart (Novolog Insulin Pen) 4 unit WITH MEALS SC Last administered on 08/16/18 08:17; Admin Dose 4 UNIT; Start 08/15/18 at 07:55 Insulin Aspart (Novolog Insulin Pen) NOVOLOG *MODERATE* ALGORITHM WITH MEALS BEDTIME SC Last administered on 08/15/18 17:49; Admin Dose 4 UNIT; Start 08/14/18 at 21:00 Aspirin (Aspirin) 81 mg DAILY PO Last administered on 08/16/18 08:20; Admin Dose 81 MG; Start 08/15/18 at 09:00 Atorvastatin Calcium (Lipitor) 40 mg HS PO Last administered on 08/15/18at 21:29; Admin Dose 40 MG; Start 08/14/18 at 21:00 Benzonatate (Tessalon) 100 mg TID PRN PO cough; Start 08/14/18 at 18:30 Losartan Potassium (Cozaar) 25 mg DAILY PO Last administered on 08/16/18 08:20; Admin Dose 25 MG; Start 08/15/18 at 09:00 Metformin HCl (Glucophage) 500 mg WITH BREAKFAST DINNE PO Last administered on 08/16/18 08:16; Admin Dose 500 MG; Start 08/15/18 at 07:55 Metoprolol Succinate (Toprol Xl) 50 mg DAILY PO Last administered on 08/16/18 08:19; Admin Dose 50 MG; Start 08/15/18 at 09:00 Spironolactone (Aldactone) 25 mg DAILY PO Last administered on 08/16/18 08:19; Admin Dose 25 MG; Start 08/15/18 at 09:00 Miscellaneous Information 1 ea NOTE XX ; Start 08/14/18 at 19:00 Glucose (Glutose) 15 gm Q15M PRN PO DECREASED GLUCOSE; Start 08/14/18 at 19:00 Glucose (Glutose) 22.5 gm Q15M PRN PO DECREASED GLUCOSE; Start 08/14/18 at 19:00 Dextrose (D50w Syringe) 25 ml Q15M PRN IV DECREASED GLUCOSE; Start 08/14/18 at 19:00 Dextrose (D50w Syringe) 50 ml Q15M PRN IV DECREASED GLUCOSE; Start 08/14/18 at 19:00 Glucagon (Glucagen) 1 mg Q15M PRN IM DECREASED GLUCOSE; Start 08/14/18 at 19:00 Glucose (Glutose) 15 gm Q15M PRN BUCCAL DECREASED GLUCOSE; Start 08/14/18 at 19:00 Acetaminophen (Tylenol Tab) 650 mg Q4H PRN PO MILD PAIN(1-3)OR ELEVATED TEMP Last administered on 08/15/18at 23:40; Admin Dose 650 MG; Start 08/15/18 at 00:00 Morphine Sulfate (morphine) 2 mg Q4H PRN IV SEVERE PAIN LEVEL 7-10; Start 08/15/18 at 04:30 Insulin Glargine (Lantus) 25 units DAILY@2000 SC Last administered on 08/15/18at 21:27; Admin Dose 25 UNITS; Start 08/15/18 at 20:00 Ondansetron HCl (Zofran Inj) 4 mg Q4H PRN IV NAUSEA AND/OR VOMITING Last administered on 08/16/18at 10:26; Admin Dose 4 MG; Start 08/16/18 at 10:30 Allergies: Coded Allergies: No Known Allergy (Unverified , 07/20/18) Past Surgical History Past Surgical Hx: no surgical history Social History Alcohol Use: none Smoking Status: Never smoker Drug Use: none Exam/Review of Systems Exam Vitals Vital Signs Date Temp Pulse Resp B/P (MAP) Pulse Ox O2 O2 Flow FiO2 Time Delivery Rate 08/16/18 100 90/57 (68) 10:10 08/16/18 98.4 18 99 Room Air 10:01 Intake and Output 08/15/18 08/15/18 08/16/18 1414:59 22:59 06:59 IntakeIntake Total 1480 ml 400 ml BalanceBalance 1480 ml 400 ml Neck: supple, non-tender Respiratory: clear to auscultation, normal air movement Cardiovascular: regular rate and rhythm, nl pulses Gastrointestinal: soft, nl liver, spleen, non-tender Musculoskeletal: nl extremities to inspection, nl gait and stance Extremities: normal pulses Results Result Diagram: 08/15/18 0621 08/16/18 0615 Results 24hrs Laboratory Tests Test 08/15/18 16:39 08/15/18 17:32 08/15/18 21:12 08/16/18 06:15 Prothrombin Time 13.4 Prothrombin Time 1.0 Ratio INR International 1.01 Normalized Ratio Bedside Glucose 190 163 Sodium Level 137 Potassium Level 4.4 Chloride Level 95 L Carbon Dioxide Level 28 Anion Gap 14 H Blood Urea Nitrogen 48 H Creatinine 0.86 Est Glomerular > 60 Filtrat Rate mL/min Glucose Level 133 # Calcium Level 9.6 Test 08/16/18 07:56 Bedside Glucose 118 Medications Medication Current Medications IV Flush (NS 3 ml) 3 ml PER PROTOCOL IV ; Start 08/14/18 at 17:30 Acetaminophen/ Hydrocodone Bitart ([place] (5/325)) 1 tab Q6H PRN PO .MOD PAIN 4- 6; Start 08/14/18 at 17:30 Bumetanide (Bumex) 1 mg BID DIURETICS IV Last administered on 08/16/18 06:31; Admin Dose 1 MG; Start 08/14/18 at 18:00 Insulin Aspart (Novolog Insulin Pen) 4 unit WITH MEALS SC Last administered on 08/16/18 08:17; Admin Dose 4 UNIT; Start 08/15/18 at 07:55 Insulin Aspart (Novolog Insulin Pen) NOVOLOG *MODERATE* ALGORITHM WITH MEALS BEDTIME SC Last administered on 08/15/18 17:49; Admin Dose 4 UNIT; Start 08/14/18 at 21:00 Aspirin (Aspirin) 81 mg DAILY PO Last administered on 08/16/18 08:20; Admin Dose 81 MG; Start 08/15/18 at 09:00 Atorvastatin Calcium (Lipitor) 40 mg HS PO Last administered on 08/15/18 21:29; Admin Dose 40 MG; Start 08/14/18 at 21:00 Benzonatate (Tessalon) 100 mg TID PRN PO cough; Start 08/14/18 at 18:30 Losartan Potassium (Cozaar) 25 mg DAILY PO Last administered on 08/16/18 08:20; Admin Dose 25 MG; Start 08/15/18 at 09:00 Metformin HCl (Glucophage) 500 mg WITH BREAKFAST DINNE PO Last administered on 08/16/18 08:16; Admin Dose 500 MG; Start 08/15/18 at 07:55 Metoprolol Succinate (Toprol Xl) 50 mg DAILY PO Last administered on 08/16/18 08:19; Admin Dose 50 MG; Start 08/15/18 at 09:00 Spironolactone (Aldactone) 25 mg DAILY PO Last administered on 08/16/18 08:19; Admin Dose 25 MG; Start 08/15/18 at 09:00 Miscellaneous Information 1 ea NOTE XX ; Start 08/14/18 at 19:00 Glucose (Glutose) 15 gm Q15M PRN PO DECREASED GLUCOSE; Start 08/14/18 at 19:00 Glucose (Glutose) 22.5 gm Q15M PRN PO DECREASED GLUCOSE; Start 08/14/18 at 19:00 Dextrose (D50w Syringe) 25 ml Q15M PRN IV DECREASED GLUCOSE; Start 08/14/18 at 19:00 Dextrose (D50w Syringe) 50 ml Q15M PRN IV DECREASED GLUCOSE; Start 08/14/18 at 19:00 Glucagon (Glucagen) 1 mg Q15M PRN IM DECREASED GLUCOSE; Start 08/14/18 at 19:00 Glucose (Glutose) 15 gm Q15M PRN BUCCAL DECREASED GLUCOSE; Start 08/14/18 at 19:00 Acetaminophen (Tylenol Tab) 650 mg Q4H PRN PO MILD PAIN(1-3)OR ELEVATED TEMP Last administered on 08/15/18at 23:40; Admin Dose 650 MG; Start 08/15/18 at 00:00 Morphine Sulfate (morphine) 2 mg Q4H PRN IV SEVERE PAIN LEVEL 7-10; Start 08/15/18 at 04:30 Insulin Glargine (Lantus) 25 units DAILY@2000 SC Last administered on 08/15/18at 21:27; Admin Dose 25 UNITS; Start 08/15/18 at 20:00 Ondansetron HCl (Zofran Inj) 4 mg Q4H PRN IV NAUSEA AND/OR VOMITING Last administered on 08/16/18at 10:26; Admin Dose 4 MG; Start 08/16/18 at 10:30 VANIA LAMB MD Aug 16, 2018 11:39
--- NOTE | 2018-08-16 14:49 | CONS ---
Assessment/Plan Assessment/Plan Hospital Course (Demo Recall) Acute decompensated systolic congestive heart failure CAD with recent CABG Borderline blood pressure Diabetes -Patient denies any chest pain. Shortness of breath is improving. Diuretics as renal function blood pressure permits -Troponins minimally elevated and trend has remained static, this is likely residual after recent infarction and surgery -Patient has been ordered thoracentesis by primary team Dr Martinez to resume care 08/17/2018 Consultation Date/Type/Reason Admit Date/Time Aug 14, 2018 at 16:57 Initial Consult Date 08/16/18 Type of Consult Cardiology Date/Time of Note DATE: 08/16/18 TIME: 14:47 24 HR Interval Summary Free Text/Dictation Feeling better, less shortness of breath, and, denies dizziness Exam/Review of Systems Vital Signs Vitals Vital Signs Date Temp Pulse Resp B/P (MAP) Pulse Ox O2 O2 Flow FiO2 Time Delivery Rate 08/16/18 88 12:10 08/16/18 93/62 (72) 11:38 08/16/18 18 96 Room Air 11:37 08/16/18 98.4 10:01 Intake and Output 08/15/18 08/15/18 08/16/18 1515:00 23:00 07:00 IntakeIntake Total 1480 ml 400 ml BalanceBalance 1480 ml 400 ml Exam Constitutional: alert, oriented (No apparent distress, sitting in chair and eating lunch) Head: normocephalic Respiratory: other (Coarse breath sounds bilaterally, decreased at the bases) Cardiovascular: regular rate and rhythm (S1-S2 heard) Gastrointestinal: soft, non-tender, bowel sounds Extremities: edema (Trace) Labs Result Diagram: 08/15/18 0621 08/16/18 0615 Results 24hrs Laboratory Tests Test 08/15/18 16:39 08/15/18 17:32 08/15/18 21:12 08/16/18 06:15 Prothrombin Time 13.4 Prothrombin Time 1.0 Ratio INR International 1.01 Normalized Ratio Bedside Glucose 190 163 Sodium Level 137 Potassium Level 4.4 Chloride Level 95 L Carbon Dioxide Level 28 Anion Gap 14 H Blood Urea Nitrogen 48 H Creatinine 0.86 Est Glomerular > 60 Filtrat Rate mL/min Glucose Level 133 # Calcium Level 9.6 Test 08/16/18 07:56 08/16/18 11:57 Bedside Glucose 118 139 Medications Medications Current Medications IV Flush (NS 3 ml) 3 ml PER PROTOCOL IV ; Start 08/14/18 at 17:30 Acetaminophen/ Hydrocodone Bitart ([place] (5/325)) 1 tab Q6H PRN PO .MOD PAIN 4- 6; Start 08/14/18 at 17:30 Bumetanide (Bumex) 1 mg BID DIURETICS IV Last administered on 08/16/18 06:31; Admin Dose 1 MG; Start 08/14/18 at 18:00 Insulin Aspart (Novolog Insulin Pen) 4 unit WITH MEALS SC Last administered on 08/16/18 08:17; Admin Dose 4 UNIT; Start 08/15/18 at 07:55 Insulin Aspart (Novolog Insulin Pen) NOVOLOG *MODERATE* ALGORITHM WITH MEALS BEDTIME SC Last administered on 08/15/18 17:49; Admin Dose 4 UNIT; Start 08/14/18 at 21:00 Aspirin (Aspirin) 81 mg DAILY PO Last administered on 08/16/18 08:20; Admin D ose 81 MG; Start 08/15/18 at 09:00 Atorvastatin Calcium (Lipitor) 40 mg HS PO Last administered on 08/15/18 21:29; Admin Dose 40 MG; Start 08/14/18 at 21:00 Benzonatate (Tessalon) 100 mg TID PRN PO cough; Start 08/14/18 at 18:30 Losartan Potassium (Cozaar) 25 mg DAILY PO Last administered on 08/16/18 08:20; Admin Dose 25 MG; Start 08/15/18 at 09:00 Metformin HCl (Glucophage) 500 mg WITH BREAKFAST DINNE PO Last administered on 08/16/18 08:16; Admin Dose 500 MG; Start 08/15/18 at 07:55 Metoprolol Succinate (Toprol Xl) 50 mg DAILY PO Last administered on 08/16/18 08:19; Admin Dose 50 MG; Start 08/15/18 at 09:00 Spironolactone (Aldactone) 25 mg DAILY PO Last administered on 08/16/18 08:19; Admin Dose 25 MG; Start 08/15/18 at 09:00 Miscellaneous Information 1 ea NOTE XX ; Start 08/14/18 at 19:00 Glucose (Glutose) 15 gm Q15M PRN PO DECREASED GLUCOSE; Start 08/14/18 at 19:00 Glucose (Glutose) 22.5 gm Q15M PRN PO DECREASED GLUCOSE; Start 08/14/18 at 19:00 Dextrose (D50w Syringe) 25 ml Q15M PRN IV DECREASED GLUCOSE; Start 08/14/18 at 19:00 Dextrose (D50w Syringe) 50 ml Q15M PRN IV DECREASED GLUCOSE; Start 08/14/18 at 19:00 Glucagon (Glucagen) 1 mg Q15M PRN IM DECREASED GLUCOSE; Start 08/14/18 at 19:00 Glucose (Glutose) 15 gm Q15M PRN BUCCAL DECREASED GLUCOSE; Start 08/14/18 at 19:00 Acetaminophen (Tylenol Tab) 650 mg Q4H PRN PO MILD PAIN(1-3)OR ELEVATED TEMP Last administered on 08/15/18at 23:40; Admin Dose 650 MG; Start 08/15/18 at 00:00 Morphine Sulfate (morphine) 2 mg Q4H PRN IV SEVERE PAIN LEVEL 7-10; Start 08/15/18 at 04:30 Insulin Glargine (Lantus) 25 units DAILY@2000 SC Last administered on 08/15/18at 21:27; Admin Dose 25 UNITS; Start 08/15/18 at 20:00 Ondansetron HCl (Zofran Inj) 4 mg Q4H PRN IV NAUSEA AND/OR VOMITING Last administered on 08/16/18at 10:26; Admin Dose 4 MG; Start 08/16/18 at 10:30 Durga Giullermo DO Aug 16, 2018 14:49
--- NOTE | 2018-08-16 14:58 | PN ---
Date/Time of Note Date/Time of Note DATE: 08/16/18 TIME: 14:57 Assessment/Plan VTE Prophylaxis Risk score (from Ns)>0 risk: 3 SCD applied (from Nsg): Yes Pharmacological prophylaxis: heparin Lines/Catheters IV Catheter Type (from Nrs): Saline Lock Assessment/Plan Hospital Course 68 yo male with h/o DMII, CAD s/p CABG 06/2018 who presents with chest tightness and SOB. Found to have L pleural effusion and troponin elevation Pleural effusion: - Thoracentesis pending, present since CABG and previous required chest tubve NSTEMI, with CAD s/p CABG: - Unclear if type 1 or type 2 DC - Trend troponins - Continue antiplatelet therapy - Dr Martinez consulted, length control tester from previous - TTE Acute diastolic CHF: - Continue diuretics DMII: - Basal/bolus insulin Discharge likely tomorrow after thoracentesis is done Result Diagram: 08/15/18 0621 08/16/18 0615 Results 24hrs Laboratory Tests Test 08/15/18 16:39 08/15/18 17:32 08/15/18 21:12 08/16/18 06:15 Prothrombin Time 13.4 Prothrombin Time 1.0 Ratio INR International 1.01 Normalized Ratio Bedside Glucose 190 163 Sodium Level 137 Potassium Level 4.4 Chloride Level 95 L Carbon Dioxide Level 28 Anion Gap 14 H Blood Urea Nitrogen 48 H Creatinine 0.86 Est Glomerular > 60 Filtrat Rate mL/min Glucose Level 133 # Calcium Level 9.6 Test 08/16/18 07:56 08/16/18 11:57 Bedside Glucose 118 139 Subjective 24 Hr Interval Summary Free Text/Dictation Had nausea this AM Still short of breath and bothersome cough Exam/Review of Systems Exam Vitals Vital Signs Date Temp Pulse Resp B/P (MAP) Pulse Ox O2 O2 Flow FiO2 Time Delivery Rate 08/16/18 88 12:10 08/16/18 93/62 (72) 11:38 08/16/18 18 96 Room Air 11:37 08/16/18 98.4 10:01 Intake and Output 08/15/18 08/15/18 08/16/18 1515:00 23:00 07:00 IntakeIntake Total 1480 ml 400 ml BalanceBalance 1480 ml 400 ml Constitutional: alert, oriented, well developed Psych: no complaints, nl mood/affect Head: normocephalic, atraumatic Eyes: nl conjunctiva, EOMI, nl lids, nl sclera, PERRL ENMT: nl external ears & nose, nl lips & teeth, nl nasal mucosa & septum Neck: supple, non-tender Respiratory: clear to auscultation, normal air movement Cardiovascular: regular rate and rhythm, nl pulses Gastrointestinal: soft, nl liver, spleen, non-tender Musculoskeletal: nl extremities to inspection, nl gait and stance Extremities: normal pulses Neurological: RESOURCE DEVELOPMENT MANAGER II-XII intact, nl mental status, nl speech, nl strength Skin: nl turgor; No rash or lesions Lymph: nl lymph nodes Results Results 24hrs Laboratory Tests Test 08/15/18 16:39 08/15/18 17:32 08/15/18 21:12 08/16/18 06:15 Prothrombin Time 13.4 Prothrombin Time 1.0 Ratio INR International 1.01 Normalized Ratio Bedside Glucose 190 163 Sodium Level 137 Potassium Level 4.4 Chloride Level 95 L Carbon Dioxide Level 28 Anion Gap 14 H Blood Urea Nitrogen 48 H Creatinine 0.86 Est Glomerular > 60 Filtrat Rate mL/min Glucose Level 133 # Calcium Level 9.6 Test 08/16/18 07:56 08/16/18 11:57 Bedside Glucose 118 139 Medications Medication Current Medications IV Flush (NS 3 ml) 3 ml PER PROTOCOL IV ; Start 08/14/18 at 17:30 Acetaminophen/ Hydrocodone Bitart ([place] (5/325)) 1 tab Q6H PRN PO .MOD PAIN 4- 6; Start 08/14/18 at 17:30 Bumetanide (Bumex) 1 mg BID DIURETICS IV Last administered on 08/16/18at 06:31; Admin Dose 1 MG; Start 08/14/18 at 18:00 Insulin Aspart (Novolog Insulin Pen) 4 unit WITH MEALS SC Last administered on 08/16/18 08:17; Admin Dose 4 UNIT; Start 08/15/18 at 07:55 Insulin Aspart (Novolog Insulin Pen) NOVOLOG *MODERATE* ALGORITHM WITH MEALS BEDTIME SC Last administered on 08/15/18at 17:49; Admin Dose 4 UNIT; Start 08/14/18 at 21:00 Aspirin (Aspirin) 81 mg DAILY PO Last administered on 08/16/18at 08:20; Admin Dose 81 MG; Start 08/15/18 at 09:00 Atorvastatin Calcium (Lipitor) 40 mg HS PO Last administered on 08/15/18at 21:29; Admin Dose 40 MG; Start 08/14/18 at 21:00 Benzonatate (Tessalon) 100 mg TID PRN PO cough; Start 08/14/18 at 18:30 Losartan Potassium (Cozaar) 25 mg DAILY PO Last administered on 08/16/18at 08:20; Admin Dose 25 MG; Start 08/15/18 at 09:00 Metformin HCl (Glucophage) 500 mg WITH BREAKFAST DINNE PO Last administered on 08/16/18at 08:16; Admin Dose 500 MG; Start 08/15/18 at 07:55 Metoprolol Succinate (Toprol Xl) 50 mg DAILY PO Last administered on 08/16/18at 08:19; Admin Dose 50 MG; Start 08/15/18 at 09:00 Spironolactone (Aldactone) 25 mg DAILY PO Last administered on 08/16/18at 08:19; Admin Dose 25 MG; Start 08/15/18 at 09:00 Miscellaneous Information 1 ea NOTE XX ; Start 08/14/18 at 19:00 Glucose (Glutose) 15 gm Q15M PRN PO DECREASED GLUCOSE; Start 08/14/18 at 19:00 Glucose (Glutose) 22.5 gm Q15M PRN PO DECREASED GLUCOSE; Start 08/14/18 at 19:00 Dextrose (D50w Syringe) 25 ml Q15M PRN IV DECREASED GLUCOSE; Start 08/14/18 at 19:00 Dextrose (D50w Syringe) 50 ml Q15M PRN IV DECREASED GLUCOSE; Start 08/14/18 at 19:00 Glucagon (Glucagen) 1 mg Q15M PRN IM DECREASED GLUCOSE; Start 08/14/18 at 19:00 Glucose (Glutose) 15 gm Q15M PRN BUCCAL DECREASED GLUCOSE; Start 08/14/18 at 19:00 Acetaminophen (Tylenol Tab) 650 mg Q4H PRN PO MILD PAIN(1-3)OR ELEVATED TEMP Last administered on 08/15/18at 23:40; Admin Dose 650 MG; Start 08/15/18 at 00:00 Morphine Sulfate (morphine) 2 mg Q4H PRN IV SEVERE PAIN LEVEL 7-10; Start at 04:30 Insulin Glargine (Lantus) 25 units DAILY@1999 SC Last administered on 08/15/18at 21:27; Admin Dose 25 UNITS; Start 08/15/18 at 20:00 Ondansetron HCl (Zofran Inj) 4 mg Q4H PRN IV NAUSEA AND/OR VOMITING Last administered on 08/16/18at 10:26; Admin Dose 4 MG; Start 08/16/18 at 10:30 Al Hydrox/Mg Hydrox/Simethicone (Mag-Al Plus) 30 ml Q6H PRN PO GASTROINTESTINAL UPSET; Start 08/16/18 at 15:00 CUAUHTEMOC WING MD Aug 16, 2018 14:58
[2018-08-16] MEDS ORDERED: AL HYDROX/MG HYDROX/SIMETH 30 ML CUP PO PRN (15:00)
[2018-08-16] MEDS: INSULIN GLARGINE [LANTus] (100 UNITS/ML) SYG SC SCH (21:35)
[2018-08-16] MEDS: ATORVASTATIN 40 MG TAB PO SCH (21:37)
[2018-08-17] VITALS (11 sets, daily range): BP systolic 101–123; BP diastolic 56–77; PULSE 75–93; RESP 16–19
[2018-08-17] MEDS: BUMETANIDE 1 MG INJ IV SCH ×2 (06:48→17:38)
[2018-08-17] MEDS: INSULIN ASPART [NOVOLOG] 3 ML PEN SC SCH ×7 (07:55→20:04)
[2018-08-17] MEDS: SPIRONOLACTONE 25 MG TAB PO SCH (08:19)
[2018-08-17] MEDS: metFORMIN 500 MG TAB PO SCH ×2 (08:19→17:38)
[2018-08-17] MEDS: METOPROLOL (XL) 50 MG TAB PO SCH (08:19)
[2018-08-17] MEDS: LOSARTAN 25 MG TAB PO SCH (08:19)
[2018-08-17] MEDS: ASPIRIN 81 MG TAB PO SCH (08:19)
[2018-08-17] MEDS: ONDANSETRON 4 MG INJ IV PRN (08:42)
--- NOTE | 2018-08-17 15:30 | PDOCDIS ---
Discharge Instructions CONDITION [id number] Patient Condition: [id number] Good HOME CARE INSTRUCTIONS: [id number] Diet Instructions: [id number] Modified Fat ACTIVITY: [id number] Activity Restrictions: [id number] No Restrictions FOLLOW UP/APPOINTMENTS Follow-up Plan FOLLOW UP WITH YOUR PCP IN 1-2 WEEKS SUZETTE SIMMONS Aug 17, 2018 15:30
[2018-08-17] MEDS: INSULIN GLARGINE [LANTus] (100 UNITS/ML) SYG SC SCH (20:00)
[2018-08-17] MEDS: ATORVASTATIN 40 MG TAB PO SCH (20:02)
== END 2018-08-17 20:24 | disposition home or self-care (01) | DRG 280 ==
LOC: TEL 16:57
PROVIDERS: ADMIT Internal Medicine; ATTEND Internal Medicine
DX: I21.4 Non-ST elevation (NSTEMI) myocardial infarction (principal); I50.23 Acute on chronic systolic (congestive) heart failure; J90 Pleural effusion, not elsewhere classified; I11.0 Hypertensive heart disease with heart failure; I25.10 Atherosclerotic heart disease of native coronary artery without angina pectoris; E11.8 Type 2 diabetes mellitus with unspecified complications; D64.9 Anemia, unspecified; R07.89 Other chest pain; Z79.4 Long term (current) use of insulin; Z95.1 Presence of aortocoronary bypass graft; Z79.82 Long term (current) use of aspirin; Z87.891 Personal history of nicotine dependence
CPT/HCPCS: 71046; 76942; 80048; 80053; 82550; 82553; 82962; 83036; 84484; 85025; 85610; 93970; J1815; J2405